=== PATIENT | female | born 1955 | race Caucasian/White ===

== ENCOUNTER 2018-06-23 13:08 | Emergency (ER) | payer MEDICAID, SELFPAY ==
[2018-06-23 13:11] VITALS: BP 119/54; PULSE 78; RESP 16; TEMP 36.7; O2SAT 96
--- NOTE | 2018-06-23 13:26 | W.ED.GENAD ---
Discharge Plan Disposition Patient Disposition: HOME Condition: Stable Discharge Details Chief Complaint: Nk/Back Pain Clinical Impression: Lumbar strain Primary Care Provider: Genaro Bonilla ED Provider: Marshall Jim Home Meds and New Rx's Prescriptions: New cyclobenzaprine 10 mg tablet 10 mg PO TID Qty: 20 RF: 0 No Action clonidine HCl 0.2 mg Tablet 0.2 mg PO BID RF: 0 escitalopram oxalate [Lexapro] 20 mg Tablet 20 mg PO DAILY RF: 0 aripiprazole [Abilify] 5 mg Tablet 5 mg PO DAILY RF: 0 Discharge Instructions Instructions: Low Back Strain (ED), Lower Back Exercises (ED) Additional Instructions: call physical therapy for an appointment take 800mg ibuprofen every 8 hours and 1000mg tylenol every 6 hours. If you take a flexeril (cyclobenzaprine) do not drink alcohol or drive as it can make you sleepy follow up with your primary care provider in 1-2 weeks especially if pain continues return to the emergency department for new symptoms such as high fevers, severe abdominal pain or if you feel significantly worse Stand Alone Forms: Physical Therapy Referral, Work Release Medical Decision Making 63 yo female comes in with low back pain. She states it started while she was at work lifting heavy pallets of soda and twisted her lower back. Denies falls or other trauma. She has had low back pain since so came here. Denies weakness, numbness and difficulty urinating. She localizes the pain to the lumbar back and has pain throughout on exam without erythema, warmth and no midline stepoffs. no saddle anesthesia, inact distal sensation and pulses and full rom of the lower extremities with 5/5 strength. Denies ivdu or fevers. I suspect lumbar strain and will start on muscle relaxers and refer to PT. Could also be disc herniation, advised f/u wtih pcp if pain continues in 1-2 weeks, no findings to suggest cauda equina, sea or other findings so do not feel emergent mri indicated. No abdominal pain ,normal vascular exam and pain is reproducible to the lower back and pain is positional so doubt aaa or dissection at this time Differential Diagnosis strain, disc herniation HPI General Mode of arrival: ambulatory. Date/Time Provider Initiated Documentation: 06/23/18 13:09. Limitations to Documentation: no limitations. Information obtained by: patient. History of Present Illness 63 year old F presents to the emergency department with the chief complaint of low back pain, described as moderate, Quality is described as aching, and is localized to the back. Patient started experiencing this day(s) (3) and it has been constant. Rest improves symptom(s), Movement worsens symptoms . Patient notes no other symptoms.. Patient did receive the following treatments prior to arrival, NSAID Related Data Home Medications Medication Instructions Recorded Confirmed aripiprazole [Abilify] 5 mg PO DAILY 06/23/18 06/23/18 clonidine HCl 0.2 mg PO BID 06/23/18 06/23/18 cyclobenzaprine 10 mg PO TID #20 tab 06/23/18 escitalopram oxalate [Lexapro] 20 mg PO DAILY 06/23/18 06/23/18 Previous Rx's Medication Instructions Recorded cyclobenzaprine 10 mg PO TID #20 tab 06/23/18 Allergies Allergy/AdvReac Type Severity Reaction Status Date / Time Sulfa (Sulfonamide Allergy Intermediate headache/ Unverified 06/23/18 13:14 Antibiotics) itiching General Stated Complaint: Nk/Back Pain ABIODUN: 4 Review of Systems Review of Systems All systems reviewed & are unremarkable except as noted in HPI and below Constitutional Denies chills, Denies fever(s) and Denies weakness Cardiovascular Denies chest pain and Denies dyspnea Respiratory Denies cough and Denies dyspnea Gastrointestinal Denies abdominal pain, Denies nausea and Denies vomiting Genitourinary Denies dysuria Neurologic Denies weakness [facility] Social History Smoking/Tobacco Use Status: Current every day Drug use: Never Do you feel safe at home: Yes Do you feel safe in your relationship?: Yes Exam Const General: no acute distress Orientation: alert [facility] Head: normal to inspection Ears: external ears normal General nose exam: external nose normal Mouth: moist mucous membranes Eyes General: appearance normal, both eyes and all related structures Neck Neck: normal visual inspection Resp Effort & Inspection: normal respiratory effort and able to speak in complete sentences Cardio Rate: regular rate Back/Spine/Pelvis Back: no CVA tenderness Skin General skin exam: no rashes or lesions noted Neuro General: alert and oriented x3 Extrem General: normal to inspection Psych Mental Status: mental status grossly normal Course Vital Signs Temperature 36.7 C 06/23/18 13:11 Pulse 78 05/01/19 13:11 Respiratory Rate 16 06/23/18 13:11 Blood Pressure 119/54 L 06/23/18 13:11 Pulse Oximetry 96 06/23/18 13:11 Temperature 36.7 C 06/23/18 13:11 Pulse 78 06/23/18 13:11 Respiratory Rate 16 06/23/18 13:11 Respiratory Effort Non-Labored 06/23/18 13:13 Blood Pressure 119/54 L 06/23/18 13:11 Blood Pressure Position Sitting 06/23/18 13:11 Pulse Oximetry 96 06/23/18 13:11 Oxygen Delivery Method Room Air 06/23/18 13:11 Oxygen Flow Rate 0 06/23/18 13:11 Pain Level 10 06/23/18 13:16
--- NOTE | 2018-06-23 13:29 | ED.GENADUL_ITS ---
Discharge Plan Disposition Patient Disposition: HOME Condition: Stable Discharge Details Chief Complaint: Nk/Back Pain Clinical Impression: Lumbar strain Primary Care Provider: Genaro Bonilla ED Provider: Marshall Jim Home Meds and New Rx's Prescriptions: New cyclobenzaprine 10 mg tablet 10 mg PO TID Qty: 20 RF: 0 No Action clonidine HCl 0.2 mg Tablet 0.2 mg PO BID RF: 0 escitalopram oxalate [Lexapro] 20 mg Tablet 20 mg PO DAILY RF: 0 aripiprazole [Abilify] 5 mg Tablet 5 mg PO DAILY RF: 0 Discharge Instructions Instructions: Low Back Strain (ED), Lower Back Exercises (ED) Additional Instructions: call physical therapy for an appointment take 800mg ibuprofen every 8 hours and 1000mg tylenol every 6 hours. If you take a flexeril (cyclobenzaprine) do not drink alcohol or drive as it can make you sleepy follow up with your primary care provider in 1-2 weeks especially if pain continues return to the emergency department for new symptoms such as high fevers, severe abdominal pain or if you feel significantly worse Stand Alone Forms: Physical Therapy Referral, Work Release Medical Decision Making 63 yo female comes in with low back pain. She states it started while she was at work lifting heavy pallets of soda and twisted her lower back. Denies falls or other trauma. She has had low back pain since so came here. Denies weakness, numbness and difficulty urinating. She localizes the pain to the lumbar back and has pain throughout on exam without erythema, warmth and no midline stepoffs. no saddle anesthesia, inact distal sensation and pulses and full rom of the lower extremities with 5/5 strength. Denies ivdu or fevers. I suspect lumbar strain and will start on muscle relaxers and refer to PT. Could also be disc herniation, advised f/u wtih pcp if pain continues in 1-2 weeks, no findings to suggest cauda equina, sea or other findings so do not feel emergent mri indicated. No abdominal pain ,normal vascular exam and pain is reproducible to the lower back and pain is positional so doubt aaa or dissection at this time Differential Diagnosis strain, disc herniation HPI General Mode of arrival: ambulatory . Date/Time Provider Initiated Documentation: 06/23/18 13:09 . Limitations to Documentation: no limitations . Information obtained by: patient . History of Present Illness 63 year old F presents to the emergency department with the chief complaint of low back pain, described as moderate, Quality is described as aching, and is localized to the back. Patient started experiencing this day(s) (3) and it has been c onstant. Rest improves symptom(s), Movement worsens symptoms . Patient notes no other symptoms.. Patient did receive the following treatments prior to arrival, NSAID Related Data Home Medications Medication Instructions Recorded Confirmed aripiprazole [Abilify] 5 mg PO DAILY 06/23/18 06/23/18 clonidine HCl 0.2 mg PO BID 06/23/18 06/23/18 cyclobenzaprine 10 mg PO TID #20 tab 06/23/18 escitalopram oxalate [Lexapro] 20 mg PO DAILY 06/23/18 06/23/18 Previous Rx's Medication Instructions Recorded cyclobenzaprine 10 mg PO TID #20 tab 06/23/18 Allergies Allergy/AdvReac Type Severity Reaction Status Date / Time Sulfa (Sulfonamide Allergy Intermediate headache/ Unverified 06/23/18 13:14 Antibiotics) itiching General Stated Complaint: Nk/Back Pain ABIODUN: 4 Review of Systems Review of Systems All systems reviewed & are unremarkable except as noted in HPI and below Constitutional Denies chills, Denies fever(s) and Denies weakness Cardiovascular Denies chest pain and Denies dyspnea Respiratory Denies cough and Denies dyspnea Gastrointestinal Denies abdominal pain, Denies nausea and Denies vomiting Genitourinary Denies dysuria Neurologic Denies weakness PFSH Social History Smoking/Tobacco Use Status: Current every day Drug use: Never Do you feel safe at home: Yes Do you feel safe in your relationship?: Yes Exam Const General: no acute distress Orientation: alert HENMT Head: normal to inspection Ears: external ears normal General nose exam: external nose normal Mouth: moist mucous membranes Eyes General: appearance normal, both eyes and all related structures Neck Neck: normal visual inspection Resp Effort & Inspection: normal respiratory effort and able to speak in complete sentences Cardio Rate: regular rate Back/Spine/Pelvis Back: no CVA tenderness Skin General skin exam: no rashes or lesions noted Neuro General: alert and oriented x3 Extrem General: normal to inspection Psych Mental Status: mental status grossly normal Course Vital Signs Temperature 36.7 C 06/23/18 13:11 Pulse 78 06/23/18 13:11 Respiratory Rate 16 06/23/18 13:11 Blood Pressure 119/54 L 06/23/18 13:11 Pulse Oximetry 96 06/23/18 13:11 Temperature 36.7 C 06/23/18 13:11 Pulse 78 06/23/18 13:11 Respiratory Rate 16 06/23/18 13:11 Respiratory Effort Non-Labored 06/23/18 13:13 Blood Pressure 119/54 L 06/23/18 13:11 Blood Pressure Position Sitting 06/23/18 13:11 Pulse Oximetry 96 06/23/18 13:11 Oxygen Delivery Method Room Air 06/23/18 13:11 Oxygen Flow Rate 0 06/23/18 13:11 Pain Level 10 06/23/18 13:16
[2018-06-23] MEDS: Cyclobenzaprine 10 MG TAB PO (13:31)
== END 2018-06-23 13:34 | disposition home or self-care (01) ==
LOC: ER 13:43
PROVIDERS: Emergency Provider Emergency Medicine; PCP Nurse Practitioner Family
DX: S39.012A Strain of muscle, fascia and tendon of lower back, initial encounter (principal); X50.0XXA Overexertion from strenuous movement or load, initial encounter
CPT/HCPCS: 99283

== ENCOUNTER 2018-08-23 12:27 | Outpatient (REF) | payer MEDICAID, SELFPAY ==
[2018-08-23 18:26] LABS: HCT 43.6 % (36.0-46.0); HGB 15.6 g/dL (12.0-15.5); Mean Corp. HGB Concentration 35.8 g/dL (32.0-36.0); Mean Corpuscular Hemoglobin 36.6 pg (27.0-33.0); Mean Corpuscular Volume 102.3 fL (80-95); Mean Platelet Volume 9.7 fL (8.0-11.0); Platelet Count 249 x1000/uL (130-400); RBC 4.26 m/cumm (4.00-5.20); RBC Distribution Width 13.7 % (11.7-14.6); White Blood Cell Count 6.08 k/cumm (4.4-10.8)
[2018-08-23 18:45] LABS: ALT 44 U/L (12-78); AST 29 U/L (15-37); Albumin 3.5 g/dL (3.4-5.0); Alkaline Phosphatase 72 U/L (46-116); Anion Gap 12.5 mmol/L (3-11); BUN 13 mg/dL (7-18); Bilirubin, Total 0.5 mg/dL (0.2-1.0); CO2 26.5 mmol/L (21.0-32.0); CREATININE 0.93 mg/dL (0.55-1.02); Calcium 9.1 mg/dL (8.5-10.1); Calculated LDL 140 mg/dL; Chloride 105 mmol/L (98-107); Cholesterol 230 mg/dL (50-200); Glucose 91 mg/dL (70-100); HDL Cholesterol 79 mg/dL (40-60); Potassium 4.3 mmol/L (3.5-5.1); Sodium 144 mmol/L (136-145); TSH (W/Ref FT4) 5.05 uIU/mL (0.358-3.74); Total Protein 6.4 g/dL (6.4-8.2); Triglyceride 59 mg/dL (30-150)
[2018-08-23 19:18] LABS: FREE T4 0.67 ng/dL (0.76-1.46)
== END 2018-08-23 12:47 ==
LOC: NCHCN 12:27
PROVIDERS: PCP Nurse Practitioner Family; Visit Provider Nurse Practitioner Family
DX: Z13.29 Encounter for screening for other suspected endocrine disorder (principal); Z13.0 Encounter for screening for diseases of the blood and blood-forming organs and certain disorders involving the immune mechanism; Z13.228 Encounter for screening for other metabolic disorders; Z13.220 Encounter for screening for lipoid disorders; Z00.00 Encounter for general adult medical examination without abnormal findings
CPT/HCPCS: 80053; 80061; 83721; 85027; 84439; 84443

== ENCOUNTER 2018-09-04 10:11 | Inpatient (IN) | payer MEDICAID, SELFPAY ==
[2018-09-04] VITALS (72 sets, daily range): BP systolic 65–104; BP diastolic 32–66; PULSE 60–76; RESP 14–29; TEMP 35.9–36.8; O2SAT 89–98
[2018-09-04] MEDS: Normal Saline 1,000 ML 1000 ML IV ×2 (10:30→11:08)
--- NOTE | 2018-09-04 10:44 | DI.COMBO_ITS ---
SYMPTOM/DIAGNOSIS: SOB, NAUSEA, VOMITING,DIARRHEA CORRECTED REPORT PA AND LATERAL CHEST: Two views. Comparison is made with previous examination. Heart size and pulmonary vasculature are within normal limits. There is a large area of consolidation involving the right lower lobe suspicious for pneumonia. The lungs are otherwise clear. No gross effusions or pneumothoraces are identified. There is a compression deformity of the T 12 vertebral body. This occurred since the prior examination of 04/13/16. IMPRESSION: Right lower lobe consolidation suspicious for pneumonia. Follow up chest xrays are recommended to document complete resolution of the opacity and to exclude other etiologies including mass. ABDOMEN AND PELVIC CT: CT scan of the abdomen and pelvis was performed following the uneventful administration of intravenous contrast material. The liver is normal in size. No suspicious hepatic mass is seen. The portal, superior mesenteric and splenic veins are patent. The gallbladder is negative. There is no biliary ductal dilatation. The pancreas, spleen and adrenal glands are unremarkable as are the kidneys, ureters and bladder. Reproductive organs are unremarkable. The bowel is unremarkable. There is a normal appendix present. The abdominal aorta is of normal caliber. No significant abdominal or pelvic adenopathy, ascites or pneumoperitoneum is present. There is an area of consolidation in the right lower lobe suspicious for pneumonia. There is a compression deformity of the T 12 vertebral body with loss of approximately 50% o the height of the vertebral body. The finding appears chronic. No acute osseous abnormality is identified. IMPRESSION: Right lower lobe consolidation suspicious for pneumonia. Follow up is recommended to document complete resolution of this opacity and to exclude other etiologies. Follow up chest xrays may be obtained.
[2018-09-04 11:04] LABS: Abs Immature Grans 0.02 k/cumm (0.0-0.09); Absolute Basophil Count 0.05 k/cumm (0.0-0.2); Absolute Eosinophil Count 0.01 k/cumm (0.0-0.7); Absolute Lymphocyte Count 1.17 k/cumm (1.2-3.4); Absolute Monocyte Count 0.43 k/cumm (0.11-0.7); Absolute Neutrophil Count 4.37 k/cumm (1.2-6.7); Basophils % 0.8; Eosinophils % 0.2; HCT 45.1 % (36.0-46.0); HGB 16.2 g/dL (12.0-15.5); Immature Grans % 0.3; Lymphocytes % 19.3; Mean Corp. HGB Concentration 35.9 g/dL (32.0-36.0); Mean Corpuscular Hemoglobin 34.5 pg (27.0-33.0); Mean Platelet Volume 10.4 fL (8.0-11.0); Monocytes % 7.1; Neutrophils % 72.3; Platelet Count 159 x1000/uL (130-400); RBC Distribution Width 13.9 % (11.7-14.6); White Blood Cell Count 6.05 k/cumm (4.4-10.8)
[2018-09-04 11:10] LABS: ALT 43 U/L (12-78); AST 69 U/L (15-37); Albumin 2.5 g/dL (3.4-5.0); Alkaline Phosphatase 57 U/L (46-116); Anion Gap 13.7 mmol/L (3-11); BUN 20 mg/dL (7-18); Bilirubin, Total 0.5 mg/dL (0.2-1.0); CO2 25.3 mmol/L (21.0-32.0); CREATININE 1.08 mg/dL (0.55-1.02); Calcium 8.3 mg/dL (8.5-10.1); Chloride 93 mmol/L (98-107); Estimated GFR 51.58 (mL/min/1.73m2); Glucose 95 mg/dL (70-100); Sodium 132 mmol/L (136-145); Total Protein 6.6 g/dL (6.4-8.2)
[2018-09-04 11:14] LABS: Potassium 2.6 mmol/L (3.5-5.1)
--- NOTE | 2018-09-04 11:14 | W.ED.GENAD ---
Discharge Plan Disposition Patient Disposition: [facility] INPATIENT Condition: Fair Discharge Details Chief Complaint: GenMedical Clinical Impression: Pneumonia, Acute hypokalemia, Nausea vomiting and diarrhea Admit Date/Time: 09/04/18 13:56 Admit Provider: Carlyn Guerrero Attending Provider: Carlyn Guerrero Primary Care Provider: Genaro Bonilla ED Provider: Hermes Garza Discharge Data Discharge Date/Time-TO BE ENTERED AT DEPARTURE: 09/04/18 15:46 Medical Decision Making Patient presenting to the emergency department for chief complaint of nausea vomiting diarrhea. Patient states that this started 1 week ago after eating pizza. She does report that family members have also had similar symptoms. She did take Imodium yesterday and diarrhea has stopped and she is not having any productive vomit but continued to have episodes of retching. She does state also for the past month she has had a cough but patient denies fever chills, rash, or cold-like symptoms. Patient does state significant concern for dehydration due to feeling generalized malaise weakness, and some disorientation. Physical exam shows diminished lung sounds in the right lower lung field, no tachycardia and regular cardiac exam, patient has diffuse abdominal tenderness without any focal findings, no rigidity, hyperactive bowel sounds. Plan to check labs, CT imaging of the abdomen, and chest x-ray for diminished lung sounds and cough. Pending results patient given IV fluids for hypotension but patient is afebrile, not tachycardic, and not tachypneic. Review of labs show no leukocytosis, hypokalemia, decreased sodium increased anion gap and unremarkable UA. Review of radiological imaging of chest x-ray and CT scan of abdomen show right lower lobe pneumonia. Possible consideration of aspiration pneumonia, legionnaires, community-acquired. Patient given a total of 3 L of fluid due to hypotension but given the finding of pneumonia lactate was added and patient was admitted to hospitalist service after speaking with Dr. Guerrero. Levaquin was started in the emergency department. Patient continued to have blood pressures in the mid to low 90s systolic. Patient was in agreement with plan of care for admission. Prior to admission lactate was reviewed and is within normal limits. ECG Data Attestation: I personally reviewed and interpreted this ECG (s) as follows: Interpretation: EKG reviewed with attending physician Dr. Jim. Shows sinus rhythm, rate 71, no STEMI. Otherwise nondiagnostic HPI General Mode of arrival: ambulatory. Date/Time Provider Initiated Documentation: 09/04/18 10:12. Limitations to Documentation: no limitations. Information obtained by: patient. History of Present Illness 63 year old F presents to the emergency department with the chief complaint of vomiting/diarrhea, Quality is described as aching, and is localized to the abdomen. Patient reports no radiation. Patient started experiencing this week(s) (1) and it has been constant. Patient notes cough, fever/chills and headaches. Patient did receive the following treatments prior to arrival, other (immodium) Related Data Home Medications Medication Instructions Recorded Confirmed aripiprazole [Abilify] 5 mg PO DAILY 06/23/18 09/04/18 escitalopram oxalate [Lexapro] 20 mg PO DAILY 06/23/18 09/04/18 clonidine HCl 0.1 mg PO BID 09/04/18 09/04/18 ibuprofen 600 mg PO Q6H PRN PRN 09/04/18 09/04/18 Allergies Allergy/AdvReac Type Severity Reaction Status Date / Time Sulfa (Sulfonamide AdvReac Intermediate headache/ Unverified 09/04/18 10:48 Antibiotics) itiching General Stated Complaint: GenMedical ABIODUN: 3 Review of Systems Constitutional Reports system reviewed and no additional complaints, except as docu, Reports anorexia, Reports chills, Denies fever(s), Reports headache(s) (on-and-off), Reports malaise and Reports weakness ENT Reports dizziness and Reports headache(s) (on-and-off) Cardiovascular Denies chest pain and Denies palpitations Respiratory Reports change in phlegm color (color), Reports cough and Denies wheezing Gastrointestinal Reports abdominal pain, Denies hematochezia, Reports diarrhea (x5/day), Reports nausea, Reports vomiting (dry heaving) and Denies hematemesis Genitourinary Denies hematuria and Reports urinary incontinence (with strong ammonia odor to urine) Musculoskeletal Denies numbness Neurologic Denies abnormal speech, Reports dizziness, Reports headache(s) (on-and-off), Denies numbness, Denies tremor(s) and Reports weakness Endocrine Denies palpitations Allergic/Immunologic Denies wheezing [facility] Medical History (Updated 09/04/18 @ 17:59 by Carlyn Guerrero MD) Alcohol abuse (Chronic) Anxiety (Chronic) Depression (Chronic) Hypothyroidism (Chronic) Ulcerative colitis (Chronic) Surgical History (Updated 09/04/18 @ 17:44 by Carlyn Guerrero MD) Hx of section (Chronic) Hx of colonoscopy (Chronic) Family History (Updated 09/04/18 @ 17:45 by Carlyn Guerrero MD) Father Heart disease Paternal Grandmother Cancer Maternal Grandmother Cancer Social History (Updated 09/04/18 @ 17:45 by Carlyn Guerrero MD) Smoking/Tobacco Use Status: Current every day Alcohol Intake: current Alcohol Intake frequency: a few times a week Alcohol type: beer Drug use: Socially Substance use type: former substance user and marijuana Do you feel safe at home: Yes Do you feel safe in your relationship?: Yes Exam Const General: cooperative and well developed Nutritional Appearance: average body habitus HENNJ Head: normal to inspection, normocephalic and atraumatic Ears: hearing grossly normal bilaterally General nose exam: external nose normal Face and sinus: normal facial exam Neck Neck: normal visual inspection and no lymphadenopathy Resp Effort & Inspection: normal respiratory effort and able to speak in complete sentences Auscultation: no crackles, diminished lung sounds on the right in the lower lung tapia, no rales, no rhonchi and no wheezes Cardio Rate: regular rate Rhythm: regular rhythm Heart Sounds: S1 normal, S2 normal, no click, no gallops, no murmurs and no rubs GI Inspection: normal to inspection, no abdominal wall ecchymosis, non-distended, obesity, no visible herniation, no visible pulsation and No visible peristalsis Palpation: soft, hepatosplenomegaly present, no masses and tender (diffuse ) Auscultation: normal bowel sounds Skin General skin exam: no rashes or lesions noted Neuro General: moves all extremities Speech: speech normal Motor: muscle tone normal throughout Extrem General: no clubbing, cyanosis or edema and no pedal edema Course Vital Signs Temperature 36.8 C 09/04/18 10:19 Pulse 72 09/04/18 10:19 Respiratory Rate 20 09/04/18 10:19 Blood Pressure 95/59 L 09/04/18 10:19 Pulse Oximetry 90 L 09/04/18 10:19 Temperature 36.8 C 09/04/18 11:12 Temperature Source Oral 09/04/18 11:12 Pulse 60 09/04/18 11:02 Pulse 61 09/04/18 11:02 Respiratory Rate 27 H 09/04/18 11:02 Respiratory Effort Non-Labored 09/04/18 10:31 Respiratory Depth Normal 09/04/18 10:31 Respiratory Pattern Normal 09/04/18 10:31 Blood Pressure 83/43 L 09/04/18 11:02 Blood Pressure Mean 54 09/04/18 11:02 Blood Pressure Position Sitting 09/04/18 10:19 Pulse Oximetry 96 09/04/18 11:02 Oxygen Delivery Method Room Air 09/04/18 10:19 Oxygen Flow Rate 0 09/04/18 10:19 Pain Level 8 09/04/18 10:19 Lab/Test Results Lab/Test Results: Laboratory Tests Range/Units 09/04/18 10:30 Sodium (136-145) mmol/L 132 L Potassium (3.5-5.1) mmol/L 2.6 L* Chloride (98-107) mmol/L 93 L Carbon Dioxide (21.0-32.0) mmol/L 25.3 Anion Gap (3-11) mmol/L 13.7 H BUN (7-18) mg/dL 20 H Creatinine (0.55-1.02) mg/dL 1.08 H Estimated GFR/1.73 m2 (mL/min/1.73m2) 51.58 Glucose (70-100) mg/dL 95 Calcium (8.5-10.1) mg/dL 8.3 L Magnesium (1.8-2.4) mg/dL 2.0 Total Bilirubin (0.2-1.0) mg/dL 0.5 AST (15-37) U/L 69 H ALT (12-78) U/L 43 Alkaline Phosphatase (46-116) U/L 57 Total Protein (6.4-8.2) g/dL 6.6 Albumin (3.4-5.0) g/dL 2.5 L
[2018-09-04] MEDS: Ondansetron O.D.T. 4 MG TABEF PO (11:21)
[2018-09-04] MEDS: POTASSIUM CHLORIDE 10 MEQ/100 ML BAG 100 MEQ IVPB (11:26)
[2018-09-04 11:31] LABS: Diff Comment Diff Reviewed
[2018-09-04] MEDS: Lactated Ringers 1,000 ML 500 ML IV (11:36)
[2018-09-04] MEDS: Omnipaque 350 MG/ML 100 ML BTL IJ (12:02)
--- NOTE | 2018-09-04 12:17 | DI.VRAD_ITS ---
EXAM: CT Abdomen and Pelvis With Contrast EXAM DATE/TIME: 09/04/2018 11:32 AM CLINICAL HISTORY: 63 years old, female; Nausea and vomiting and other: Diarrhea TECHNIQUE: Imaging protocol: Axial computed tomography images of the abdomen and pelvis with intravenous contrast. Coronal and sagittal reformatted images were created and reviewed. Radiation optimization: All CT scans at this facility use at least one of these dose optimization techniques: automated exposure control; mA and/or kV adjustment per patient size (includes targeted exams where dose is matched to clinical indication); or iterative reconstruction. Contrast material: OMNIPAQUE 350; Contrast volume: 100 ml; Contrast route: IV; COMPARISON: CR LEFT HIP COMPLETE \T\ AP PELVIS 05/14/2013 2:07 PM FINDINGS: Right basilar lung consolidation suggesting pneumonia plus some degree of atelectasis. Appendix is normal. Normal appearing solid organs. No intestinal obstruction. No obstructive uropathy. No free fluid. No free air. No inflammatory changes. IMPRESSION: Marked right lower lobe consolidation suggesting pneumonia. Dictated and Authenticated by: Cassius Pagan MD. Ordering:THEO Mirza MD
--- NOTE | 2018-09-04 12:19 | DI.VRAD_ITS ---
EXAM: XR Chest, 2 Views EXAM DATE/TIME: 09/04/2018 10:47 AM CLINICAL HISTORY: 63 years old, female; Shortness of breath TECHNIQUE: Imaging protocol: XR of the chest, 2 views. COMPARISON: CR CHEST 2 VIEWS PA,LAT 04/13/2016 10:27 AM FINDINGS: Marked right lower lobe consolidation consistent with pneumonia. Lung tapia otherwise clear. Cardiac silhouette within normal limits for technique. No significant pleural effusion. Bony structures unremarkable age. IMPRESSION: Marked right lower lobe pneumonia. Dictated and Authenticated by: Cassius Pagan MD. Ordering:THEO Mirza MD
[2018-09-04 12:54] LABS: Lactate-non-spesis 1.3 mmol/l (0.6-1.4)
[2018-09-04] MEDS: Normal Saline 1,000 ML 125 ML IV (12:58)
[2018-09-04] MEDS: levoFLOXacin 750 MG/150 ML BAG 100 MG IVPB (13:02)
[2018-09-04 14:27] LABS: Bilirubin Negative (Negative); Blood Negative (Negative); Clarity Clear (Clear); Glucose Negative (Negative); Ketones Negative (Negative); Leukocyte Esterase Negative (Negative); Nitrite Negative (Negative); Specific Gravity <= 1.005 (1.005-1.025); Urobilinogen 0.2 EU/dL (Up TO 0.2)
[2018-09-04] MEDS: Lactated Ringers 1,000 ML 1000 ML IV (15:02)
[2018-09-04] MEDS: POTASSIUM CHLORIDE 20 MEQ/100 ML BAG 50 MEQ IVPB ×2 (15:03→17:15)
[2018-09-04 15:57] LABS: Lipase 386 U/L (73-393)
[2018-09-04] MEDS: Enoxaparin 40 MG/0.4 ML SYR SC (17:12)
[2018-09-04] MEDS: POTASSIUM CHLORIDE/0.9% NACL 1,000 ML 150 MEQ IV (17:28)
--- NOTE | 2018-09-04 17:29 | HPE_ITS ---
Date of service: 09/04/18 Time of Service: 17:30 Assessment and Plan (1) Right lower lobe pneumonia: Current visit: Yes Status: Acute Given the history of nausea/vomiting, aspiration pneumonia is the most lik ilan scenario. Obtain blood and sputum cultures. Continue aggressive IVF and levofloxacin, initiated in the ED. I feel that the pneumonia is likely due to the vomiting rather than being a part of the same syndrome (such as with legionella) - however, will check legionella urine Ag. (2) Hypotension: Current visit: Yes Status: Acute Likely due to dehydration. Continue aggressive IVF. Monitor BP's. (3) Alcohol abuse: Current visit: Yes Status: Chronic Monitor on CIWA with prn ativan. Provide vitamins. May have to switch to banana bag if cannot tolerate PO (4) Hypokalemia: Current visit: Yes Status: Acute Replete. Monitor on tele. (5) Hypothyroidism: Current visit: Yes Status: Chronic Presently subclinical. Follow up as outpatient (6) Depression: Current visit: Yes Status: Chronic Continue lexapro/abilify (7) Anxiety: Current visit: Yes Status: Chronic Hold clonidine while BP's are on the lower side (8) Nausea and vomiting: Current visit: Yes Status: Acute Resolved. Most likely due to viral vs bacterial gastroenteritis. Provide PPI, prn antiemetics if needed, but clinically this seems to have resolved. Continue IVF. Trial clear liquids. (9) DVT prophylaxis: Current visit: Yes Status: Acute lovenox (10) Discharge planning issues: Current visit: Yes Status: Acute Full code History of Present Illness Chief Complaint: I've been feeling sick for a week Narrative: Ms Kuhn is a 63 year old female with PMHx of depression, anxiety, hypothyroidism (off therapy), UC, who came to [facility] ED today with chief complaints of nausea/vomiting/dry heaving/watery diarrhea for a week. She states that this started after she ate pizza one week ago. While to the ER provider the patient stated that other family members also had the sx, she denied this to me. She does feel significantly better now. Last time she felt nauseated was this morning. She also reports subjective fevers, chills, and night sweats at home. She noticed some nonproductive cough, but she does not report that as her biggest concern. She also reports dyspnea on exertion, but it is not a new symptom for her. She is interested in trying eating tonight, which she states she hasn't done in 1 week. She stated she continued to drink, however. She drinks 2-3 times a week, 2-3 beers each time. The patient stated she that she has previously required inpatient rehab for alcoholism, but denies every having actual withdrawal symptoms or seizures. In the ED, she was found to be dehydrated, hypotensive with BP's in sometimes down to 70's (now up to 97/65), and her imaging revealed a RLL pneumonia. She was found to have hypokalemia with K of 2.6. The patient was initiated on aggressive IVF as well as IV levofloxacin. We were asked to admit the patient for further care. It also needs to be noted that the patient's neighbor, who was present with her at the time of triage in ED, remarked on her disorientation, but felt that this improved significantly during her ED course. Review of Systems Review of Systems 12 systems reviewed. Pertinent positives and negatives are as per HPI. Additionally, patient specifically denies ever having had seizures. She describes a generalized type of cramping in her abdomen, which has now resolved. Denies blood in stool and in her emetic contents. Denies urinary symptoms. Denies chest pain/dizziness. Endorses feeling unsteady on her feet. Thirsty. [facility] Medical History (Updated 09/04/18 @ 17:59 by Carlyn Guerrero MD) Alcohol abuse (Chronic) Anxiety (Chronic) Depression (Chronic) Hypothyroidism (Chronic) Ulcerative colitis (Chronic) Surgical History (Updated 09/04/18 @ 17:44 by Carlyn Guerrero MD) Hx of section (Chronic) Hx of colonoscopy (Chronic) Family History (Updated 09/04/18 @ 17:45 by Carlyn Guerrero MD) Father Heart disease Paternal Grandmother Cancer Maternal Grandmother Cancer Social History (Updated 09/04/18 @ 17:45 by Carlyn Guerrero MD) Smoking/Tobacco Use Status: Current every day Alcohol Intake: current Alcohol Intake frequency: a few times a week Alcohol type: beer Drug use: Socially Substance use type: former substance user and marijuana Do you feel safe at home: Yes Do you feel safe in your relationship?: Yes Meds Home Medications Medication Instructions Recorded Confirmed Type aripiprazole [Abilify] 5 mg PO DAILY 06/23/18 09/04/18 History escitalopram oxalate [Lexapro] 20 mg PO DAILY 06/23/18 09/04/18 History clonidine HCl 0.1 mg PO BID 09/04/18 09/04/18 History ibuprofen 600 mg PO Q6H PRN PRN 09/04/18 09/04/18 History Allergies Allergy/AdvReac Type Severity Reaction Status Date / Time Sulfa (Sulfonamide AdvReac Intermediate headache/ Unverified 09/04/18 10:48 Antibiotics) itiching Exam Narrative Exam Narrative: General: Obese female, A&Ox3, unsteady on her feet as she is walking to bed holding on to the IV pole; tremulous, appears somewhat slow to respond to some questions Neurological: A&Ox3, no obvious focal deficits, but some responses are delayed Psychiatric: appears anxious Skin: dry/intact, dehydrated HEENT: Atraumatic, normocephalic, EOMI, dry MM, + goiter, no submandibular or cervical lymphadenopathy, no JVD Cardiovascular: RRR, no m/r/g Lungs: Coarse breath sounds heard in B bases Gastrointestinal: abdomen is soft, + BS, mild diffuse tenderness Extremities: no e/c/c BLE's, 2+ pedal pulses B Results Imaging Additional studies: CT abdomen/pelvis with contrast: Marked right lower lobe consolidation suggesting pneumonia. CXR: Marked right lower lobe pneumonia. EKG: HR 71, NSR, no acute ischemia Labs : 09/04/18 10:30 09/04/18 10:30 Laboratory Results - last 24 hr 09/04/18 09/04/18 09/04/18 10:30 10:30 12:50 WBC 6.05 RBC 4.70 Hgb 16.2 H Hct 45.1 MCV 96.0 H MCH 34.5 H MCHC 35.9 RDW 13.9 Plt Count 159 MPV 10.4 Immature Gran % 0.3 Neutrophils % 72.3 Lymphocytes % 19.3 Monocytes % 7.1 Eosinophils % 0.2 Basophils % 0.8 Absolute Neutrophils 4.37 Absolute Lymphocytes 1.17 L Absolute Monocytes 0.43 Absolute Eosinophils 0.01 Absolute Basophils 0.05 Differential Comment Diff reviewed Sodium 132 L Potassium 2.6 L* Chloride 93 L Carbon Dioxide 25.3 Anion Gap 13.7 H BUN 20 H Creatinine 1.08 H Estimated GFR/1.73 m2 51.58 Glucose 95 Lactate 1.3 Calcium 8.3 L Magnesium 2.0 Total Bilirubin 0.5 AST 69 H ALT 43 Alkaline Phosphatase 57 Total Protein 6.6 Albumin 2.5 L Lipase Urine Color Urine Clarity Urine pH Ur Specific [place] Urine Protein Urine Ketones Urine Blood Urine Nitrite Urine Bilirubin Urine Urobilinogen Ur Leukocyte Esterase Urine Glucose 09/04/18 09/04/18 12:50 14:00 WBC RBC Hgb Hct MCV MCH MCHC RDW Plt Count MPV Immature Gran % Neutrophils % Lymphocytes % Monocytes % Eosinophils % Basophils % Absolute Neutrophils Absolute Lymphocytes Absolute Monocytes Absolute Eosinophils Absolute Basophils Differential Comment Sodium Potassium Chloride Carbon Dioxide Anion Gap BUN Creatinine Estimated GFR/1.73 m2 Glucose Lactate Calcium Magnesium Total Bilirubin AST ALT Alkaline Phosphatase Total Protein Albumin Lipase 386 Urine Color Yellow Urine Clarity Clear Urine pH 7.0 Ur Specific [place] <= 1.005 Urine Protein Negative Urine Ketones Negative Urine Blood Negative Urine Nitrite Negative Urine Bilirubin Negative Urine Urobilinogen 0.2 Ur Leukocyte Esterase Negative Urine Glucose Negative Last Vital Signs Temp 35.9 C L 09/04/18 16:11 Pulse 67 09/04/18 16:11 Resp 17 09/04/18 16:11 BP 97/65 L 09/04/18 16:11 Pulse Ox 94 L 09/04/18 16:11
[2018-09-04] MEDS: Normal Saline Flush 10 ML SYR IVP (18:25)
[2018-09-05] VITALS (12 sets, daily range): BP systolic 95–121; BP diastolic 60–81; PULSE 63–81; RESP 17–20; TEMP 36–36.9; O2SAT 94–98
[2018-09-05] MEDS: POTASSIUM CHLORIDE/0.9% NACL 1,000 ML 150 MEQ IV ×2 (01:27→07:14)
[2018-09-05 08:01] LABS: Abs Immature Grans 0.02 k/cumm (0.0-0.09); Absolute Basophil Count 0.04 k/cumm (0.0-0.2); Absolute Eosinophil Count 0.02 k/cumm (0.0-0.7); Absolute Monocyte Count 0.39 k/cumm (0.11-0.7); Absolute Neutrophil Count 3.11 k/cumm (1.2-6.7); Basophils % 0.8; Eosinophils % 0.4; HCT 42.3 % (36.0-46.0); HGB 14.6 g/dL (12.0-15.5); Immature Grans % 0.4; Lymphocytes % 26.6; Mean Corp. HGB Concentration 34.5 g/dL (32.0-36.0); Mean Corpuscular Hemoglobin 34.4 pg (27.0-33.0); Mean Corpuscular Volume 99.5 fL (80-95); Mean Platelet Volume 10.9 fL (8.0-11.0); Neutrophils % 63.8; Platelet Count 188 x1000/uL (130-400); RBC 4.25 m/cumm (4.00-5.20); RBC Distribution Width 14.4 % (11.7-14.6); White Blood Cell Count 4.88 k/cumm (4.4-10.8)
[2018-09-05] MEDS: Thiamine 100 MG TAB PO (08:06)
[2018-09-05] MEDS: ARIPiprazole 5 MG TAB PO (08:06)
[2018-09-05] MEDS: Folic Acid 1 MG TAB PO (08:06)
[2018-09-05] MEDS: Multivitamin TAB 1 TAB PO (08:06)
[2018-09-05] MEDS: Normal Saline Flush 10 ML SYR IVP (08:06)
[2018-09-05] MEDS: Escitalopram 20 MG TAB PO (08:06)
[2018-09-05 08:12] LABS: Anion Gap 12.6 mmol/L (3-11); BUN 10 mg/dL (7-18); CO2 19.4 mmol/L (21.0-32.0); CREATININE 0.76 mg/dL (0.55-1.02); Calcium 7.6 mg/dL (8.5-10.1); Chloride 109 mmol/L (98-107); Glucose 83 mg/dL (70-100); Magnesium 1.8 mg/dL (1.8-2.4); Potassium 4.1 mmol/L (3.5-5.1); Sodium 141 mmol/L (136-145)
[2018-09-05 08:39] LABS: Diff Comment Agrees w/ Instrument; RBC Morphology Normal
[2018-09-05] MEDS: Normal Saline 1,000 ML 150 ML IV (10:36)
[2018-09-05 10:45] LABS: Lactate-non-spesis 0.6 mmol/l (0.6-1.4)
[2018-09-05 12:23] LABS: Bilirubin Negative (Negative); Blood Negative (Negative); Clarity Clear (Clear); Glucose Negative (Negative); Ketones Trace mg/dL (Negative); Leukocyte Esterase Negative (Negative); Nitrite Negative (Negative); Specific Gravity 1.015 (1.005-1.025)
[2018-09-05 12:34] LABS: RBC Negative (0-2); WBC 0-2 HPF (0-5)
[2018-09-05 12:35] LABS: Bacteria Few HPF (Negative); C & S Indicated? No; Casts Negative LPF (Negative); Crystals Moderate Amorphous HPF (Negative); Epithelial Cells Moderate HPF (Negative); Mucus Trace (Negative)
[2018-09-05] MEDS: levoFLOXacin 750 MG/150 ML BAG 100 MG IVPB (13:00)
--- NOTE | 2018-09-05 14:22 | PGE_ITS ---
Date of Service Date of service: 09/05/18 Time of Service: 14:22 Assessment and Plan (1) Right lower lobe pneumonia: Current visit: Yes Status: Acute Repeating CXR to ensure the patient's PNA is not complicated by CHF as well. Continue current abx. Decrease IVF. (2) Hypotension: Current visit: Yes Status: Acute Improved. Decrease IVF. Continue to hold clonidine. (3) Alcohol abuse: Current visit: Yes Status: Chronic Monitor on CIWA with prn ativan. Supplement vitamins. (4) Hypokalemia: Current visit: Yes Status: Resolved was likely due to diarrhea. Resolved. Tele d/c'ed. Continue to monitor (5) Hypothyroidism: Current visit: Yes Status: Chronic Presently subclinical. Follow up as outpatient (6) Depression: Current visit: Yes Status: Chronic Continue lexapro/abilify (7) Anxiety: Current visit: Yes Status: Chronic Hold clonidine while BP's are on the lower side (8) Nausea and vomiting: Current visit: Yes Status: Resolved Resolved. Diarrhea today could be side effect of antibiotics - if recurs, should check stool studies, however. I recommended that the patient have BID yogurt. Advance diet to full liquids. (9) DVT prophylaxis: Current visit: Yes Status: Acute lovenox (10) Discharge planning issues: Current visit: Yes Status: Acute Full code Subjective Interval history since last seen: Ms Kuhn states she is feeling better. She is less dizzy and shaky. She continues to have a cough - it is productive of yellow sputum. Endorses shortness of breath on exertion. She reports R-sided rib pain from dry heaving. She hasn't had any dry heaving today and has been able to tolerate a clear liquid diet. She is interested in having it advanced. Denies abdominal pain. Did have an episode of yellowish - green watery diarrhea (nursing did not see it). Exam Narrative Exam Narrative: General: Obese female, A&Ox3, laying comfortably in bed, less pale than yesterday; mildly tremulous (less than yesterday), very SANDOVAL on minimal exertion (trying to turn in bed). HEENT: EOMI, MMM Cardiovascular: RRR, no m/r/g Lungs: R basilar crackles Gastrointestinal: abdomen is soft, initially tenderness in RUQ, then I could no longer illicit it - nontender, nondistended Extremities: no e/c/c BLE's, 2+ pedal pulses B Objective Objective Clinical Data: Abnormal lab results 09/05/18 09/05/18 09/05/18 Range/Units 06:35 06:35 12:10 MCV 99.5 H D (80-95) fL MCH 34.4 H (27.0-33.0) pg Chloride 109 H (98-107) mmol/L Carbon Dioxide 19.4 L (21.0-32.0) mmol/L Anion Gap 12.6 H (3-11) mmol/L Calcium 7.6 L (8.5-10.1) mg/dL Urine Protein Trace H (Negative) mg/dL Urine Ketones Trace H (Negative) mg/dL Urine Urobilinogen 1.0 H (Up TO 0.2) EU/dL Vital Signs Temperature 36.9 C 09/05/18 07:49 Temperature Source Tympanic 09/05/18 07:49 Pulse 63 09/05/18 10:45 Pulse Rhythm Regular 09/05/18 07:50 Pulse 69 09/04/18 15:21 Respiratory Rate 20 09/05/18 07:49 Respiratory Effort 09/05/18 07:50 Respiratory Depth Normal 09/05/18 07:50 Respiratory Pattern Irregular 09/05/18 07:50 Blood Pressure 96/63 L 09/05/18 07:49 Blood Pressure Mean 70 09/04/18 15:20 Blood Pressure Position Sitting 09/04/18 10:19 Pulse Oximetry 98 09/05/18 07:49 Oxygen Delivery Method Nasal Cannula 09/05/18 07:49 Oxygen Flow Rate 2 09/05/18 07:49 Pain Level 0 09/05/18 08:06 Comment 09/04/18 19:10 Intake & Output 09/04/18 09/05/18 09/05/18 23:59 11:59 23:59 Intake Total 3450.000 / 5450.000 2375.0 / 2825.0 450 / 2825.0 Output Total 1550 / 1550 1400 / 1400 Balance 1900.000 / 3900.000 975.0 / 1425.0 450 / 1425.0 Weight 81.647 kg 83.6 kg Intake: IV 3450.000 / 5450.000 2375.0 / 2375.0 Oral 450 / 450 Output: Urine 1550 / 1550 1400 / 1400 Other: Urine Color Yellow Yellow Urine Appearance Clear Clear Urine Odor Normal Normal Comment w tiny bit of stool UA Sent. 1230 Stool Size Small Stool Characteristics Soft Formed Brown Voiding Methods Toilet Toilet Toilet # Voids 1 Laboratory Results WBC 4.88 k/cumm (4.4-10.8) 09/05/18 06:35 RBC 4.25 m/cumm (4.00-5.20) 09/05/18 06:35 Hgb 14.6 g/dL (12.0-15.5) 09/05/18 06:35 Hct 42.3 % (36.0-46.0) 09/05/18 06:35 MCV 99.5 fL (80-95) H D 09/05/18 06:35 MCH 34.4 pg (27.0-33.0) H 09/05/18 06:35 MCHC 34.5 g/dL (32.0-36.0) 09/05/18 06:35 RDW 14.4 % (11.7-14.6) 09/05/18 06:35 Plt Count 188 x1000/uL (130-400) 09/05/18 06:35 MPV 10.9 fL (8.0-11.0) 09/05/18 06:35 Immature Gran % 0.4 09/05/18 06:35 63.8 09/05/18 06:35 26.6 09/05/18 06:35 8.0 09/05/18 06:35 0.4 09/05/18 06:35 0.8 09/05/18 06:35 Absolute Neutrophils 3.11 k/cumm (1.2-6.7) 09/05/18 06:35 Absolute Lymphocytes 1.30 k/cumm (1.2-3.4) 09/05/18 06:35 Absolute Monocytes 0.39 k/cumm (0.11-0.7) 09/05/18 06:35 Absolute Eosinophils 0.02 k/cumm (0.0-0.7) 09/05/18 06:35 Absolute Basophils 0.04 k/cumm (0.0-0.2) 09/05/18 06:35 Agrees w/ instrument 09/05/18 06:35 RBC Morphology Normal 09/05/18 06:35 Sodium 141 mmol/L (136-145) 09/05/18 06:35 Potassium 4.1 mmol/L (3.5-5.1) D 09/05/18 06:35 Chloride 109 mmol/L (98-107) H 09/05/18 06:35 Carbon Dioxide 19.4 mmol/L (21.0-32.0) L 09/05/18 06:35 12.6 mmol/L (3-11) H 09/05/18 06:35 BUN 10 mg/dL (7-18) D 09/05/18 06:35 0.76 mg/dL (0.55-1.02) 09/05/18 06:35 >= 60.00 (mL/min/1.73m2) 09/05/18 06:35 Glucose 83 mg/dL (70-100) 09/05/18 06:35 0.6 mmol/l (0.6-1.4) 09/05/18 10:40 Calcium 7.6 mg/dL (8.5-10.1) L 09/05/18 06:35 Magnesium 1.8 mg/dL (1.8-2.4) 09/05/18 06:35 0.5 mg/dL (0.2-1.0) 09/04/18 10:30 AST 69 U/L (15-37) H 09/04/18 10:30 ALT 43 U/L (12-78) 09/04/18 10:30 57 U/L (46-116) 09/04/18 10:30 6.6 g/dL (6.4-8.2) 09/04/18 10:30 2.5 g/dL (3.4-5.0) L 09/04/18 10:30 386 U/L (73-393) 09/04/18 12:50 Yellow (Yellow) 09/05/18 12:10 Clear (Clear) 09/05/18 12:10 6.0 (5-8) 09/05/18 12:10 Ur Specific [place] 1.015 (1.005-1.025) 09/05/18 12:10 Trace mg/dL (Negative) H 09/05/18 12:10 Trace mg/dL (Negative) H 09/05/18 12:10 Negative (Negative) 09/05/18 12:10 Negative (Negative) 09/05/18 12:10 Negative (Negative) 09/05/18 12:10 1.0 EU/dL (Up TO 0.2) H 09/05/18 12:10 Ur Leukocyte Esterase Negative (Negative) 09/05/18 12:10 Negative (0-2) 09/05/18 12:10 0-2 HPF (0-5) 09/05/18 12:10 Ur Epithelial Cells Moderate HPF (Negative) 09/05/18 12:10 Moderate amorphous HPF (Negative) 09/05/18 12:10 Few HPF (Negative) 09/05/18 12:10 Negative LPF (Negative) 09/05/18 12:10 Trace (Negative) 09/05/18 12:10 Ur Culture Indicated? No 09/05/18 12:10 Negative mg/dL (Negative) 09/05/18 12:10
--- NOTE | 2018-09-05 14:51 | DI.RAD_ITS ---
SYMPTOM/DIAGNOSIS: F/U PNEUMONIA, CRACKLES CORRECTED REPORT PA AND LATERAL CHEST: Two views. Comparison is made with 09/04/18. Since the prior examination, there has been interval progression of the right lower lobe consolidation. It is increased in size. This is most apparent on the lateral view. There has also developed small bilateral pleural effusions since the prior examination. Heart size and pulmonary vasculature are within normal limits. No pneumothorax is identified. IMPRESSION: Progression of the right lower lobe pneumonia with development of small bilateral pleural effusions.
[2018-09-05] MEDS: Normal Saline 1,000 ML 75 ML IV ×2 (15:26→23:11)
[2018-09-05] MEDS: Enoxaparin 40 MG/0.4 ML SYR SC (15:31)
--- NOTE | 2018-09-05 15:41 | DI.VRAD_ITS ---
EXAM: XR Chest, 2 Views EXAM DATE/TIME: 09/05/2018 2:48 PM CLINICAL HISTORY: 63 years old, female; Other: Follow up pneumonia; Crackles TECHNIQUE: Imaging protocol: XR of the chest, 2 views. COMPARISON: CR XR CHEST 2V PA LATERAL 09/04/2018 12:09 PM FINDINGS: Lungs: Persistent right lower lobe consolidation with new patchy infiltrate extending anteriorly and new opacification of the right costophrenic angle which may represent consolidation or fluid. Pleural space: Small amount of fluid now blunts the left costophrenic angle. No pneumothorax. Heart/Mediastinum: Unremarkable. No cardiomegaly. Bones/joints: Unremarkable. IMPRESSION: Worsened right lower lobe pneumonia. Dictated and Authenticated by: Maricruz Locke MD. Ordering:LISS Alcocer MD
--- NOTE | 2018-09-05 17:56 | INITIAL_ITS ---
Care Management Initial Assess REASON FOR HOSPITALIZATION:: Aspiration Pneumonia PAST MEDICAL HISTORY/PAST SURGICAL HISTORY:: Alcohol abuse, anxiety, depression, hypothyroidism, ulcerative colitis, section, colonoscopy PREVIOUS FUNCTIONAL STATUS/SOCIAL/FAMILY SUPPORTS:: Martina reports residing alone in [facility]. She works a few days a week at [employer] which is within walking distance of her home. She reports being independent with ADLs though she does not drive. She is rigid in posture and not forthcoming with information; further observation/assessment required for determination. CURRENT FUNCTIONAL STATUS:: Martina is lying in bed, eyes fixated on the television screen above her which is on a pharmacutical comercial when CM enters the room. Martina does not make eye contact but does provide few word answers when asked. Her arms are straight at her side and her movements are jerky. 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 She reports support friends and family when asked. She denies any support services including disability at this time. ADVANCE DIRECTIVES:: None on file Has patient been provided with information about the portal?: Yes Did the patient sign up for the portal?: Yes (Previously ) CODE STATUS:: Full Code INSURANCE COVERAGE / FINANCIAL ISSUES:: Medicaid CURRENT HOME/COMMUNITY SERVICES/EQUIPMENT:: Denies current services/equipment PRIMARY CARE PHYSICIAN:: Genaro Bonilla NP POTENTIAL DISCHARGE NEEDS:: Further evaluation for discharge planning considerations. Follow up appointments. PATIENT/FAMILY EDUCATION NEEDS:: Review of discharge instructions, discuss Ask Me Three. ANTICIPATED BARRIERS TO DISCHARGE:: None identified. TRANSPORTATION:: Via private vehicle with a [id number]. PLAN:: Martina will continue to be treated and closely monitored. CM will continue to follow and support discharge planning considerations.
[2018-09-06 04:05] VITALS: BP 149/83; PULSE 74; RESP 18; TEMP 37; O2SAT 94
[2018-09-06 07:13] LABS: Abs Immature Grans 0.03 k/cumm (0.0-0.09); HCT 40.2 % (36.0-46.0); HGB 13.9 g/dL (12.0-15.5); Mean Corp. HGB Concentration 34.6 g/dL (32.0-36.0); Mean Corpuscular Hemoglobin 34.2 pg (27.0-33.0); Mean Platelet Volume 10.6 fL (8.0-11.0); RBC 4.06 m/cumm (4.00-5.20); RBC Distribution Width 14.2 % (11.7-14.6); White Blood Cell Count 4.15 k/cumm (4.4-10.8)
[2018-09-06 08:01] LABS: Anion Gap 12.1 mmol/L (3-11); BUN 5 mg/dL (7-18); CO2 17.9 mmol/L (21.0-32.0); CREATININE 0.64 mg/dL (0.55-1.02); Calcium 7.6 mg/dL (8.5-10.1); Chloride 111 mmol/L (98-107); Glucose 93 mg/dL (70-100); Magnesium 1.5 mg/dL (1.8-2.4); Potassium 3.3 mmol/L (3.5-5.1); Sodium 141 mmol/L (136-145); Vitamin B12 813 pg/mL (193-986)
[2018-09-06] MEDS: Thiamine 100 MG TAB PO (08:09)
[2018-09-06] MEDS: Multivitamin TAB 1 TAB PO (08:09)
[2018-09-06] MEDS: Escitalopram 20 MG TAB PO (08:09)
[2018-09-06] MEDS: ARIPiprazole 5 MG TAB PO (08:09)
[2018-09-06] MEDS: Folic Acid 1 MG TAB PO (08:09)
[2018-09-06 08:10] VITALS: BP 128/83; PULSE 75; RESP 21; TEMP 36.5; O2SAT 96
[2018-09-06] MEDS: Normal Saline Flush 10 ML SYR IVP (08:10)
[2018-09-06 08:14] LABS: Absolute Neutrophil Count 2.57 k/cumm (1.2-6.7); Atypical Lymphocytes % 2
[2018-09-06 08:15] LABS: Absolute Basophil Count 0.04 k/cumm (0.0-0.2); Absolute Monocyte Count 0.54 k/cumm (0.11-0.7); Diff Comment Manual Differential
[2018-09-06 08:16] LABS: Platelet Count 226 x1000/uL (130-400); RBC Morphology Normal
[2018-09-06] MEDS: Potassium Chloride 20 MEQ TABCR 40 MEQ PO (10:42)
--- NOTE | 2018-09-06 10:45 | PDOC.CMDIS ---
LACE Index Scoring Tool - Questions: Length of Stay (in days): 2 Acuity (Admit via E.D.?): Yes E.D. Visits: 2 - Answers: Total Score: 7 Risk of Readmission: Low Risk Care Management Discharge Reason for Hospitalization: Aspiration Pneumonia Discharge Plan: Martina will return home when ready per MD. She will follow up with her PCP and plan of care as prescribed. CM will continue to follow and support discharge planning considerations. Patient/Family Education Needs: Review discharge instructions, discuss Ask Me Three.
[2018-09-06] MEDS: MAGNESIUM SULFATE 4 GM/100 ML BAG IVPB (10:51)
[2018-09-06 11:20] VITALS: BP 120/80; PULSE 74; RESP 22; TEMP 36.5; O2SAT 96
[2018-09-06] MEDS: Lactated Ringers 1,000 ML 75 ML IV (11:25)
--- NOTE | 2018-09-06 12:25 | W.PM.PROGNOT ---
Date of Service Date of service: 09/06/18 Time of Service: 12:25 Assessment and Plan (1) Right lower lobe pneumonia: Current visit: Yes Status: Acute Clinically this is better. Continue current abx and IVF. There is a possibility of discharge home tomorrow. Would like to repeat CXR tomorrow to demonstrate radiographic improvement - but this could also be done as outpatient. (2) Hypotension: Current visit: Yes Status: Resolved Resolved. IVF changed to LR due to physiologic acidosis of NS - but would finish the IVF tomorrow. Ok to resume clonidine. (3) Alcohol abuse: Current visit: Yes Status: Chronic Monitor on CIWA with prn ativan. Supplement vitamins. (4) Hypokalemia: Current visit: Yes Status: Acute Replete. Also, replete magnesium. (5) Hypothyroidism: Current visit: Yes Status: Chronic Presently subclinical. Follow up as outpatient (6) Depression: Current visit: Yes Status: Chronic Continue lexapro/abilify (7) Anxiety: Current visit: Yes Status: Chronic Resume clonidine. (8) Nausea and vomiting: Current visit: Yes Status: Resolved Resolved. Diarrhea also resolved. Advance diet to regular. Continue BID yogurt. (9) DVT prophylaxis: Current visit: Yes Status: Acute lovenox (10) Discharge planning issues: Current visit: Yes Status: Acute Full code PT eval prior to discharge as patient reports feeling unsteady on her feet. Subjective Interval history since last seen: States her breathing is a lot better than when she first came in, and that overall she feels a lot better, but still continues to have a productive cough with yellow sputum, feels lightheaded and unsteady on her feet. She does not feel ready to go home today, but thinks maybe tomorrow. Denies chest pain, nausea, abdominal pain. Diarrhea has resolved. She is interested in trying a regular consistency diet. Exam Narrative Exam Narrative: General: Obese female, A&Ox3, sitting up in a chair, looks visibly better, mildly tremulous. HEENT: EOMI, MMM Cardiovascular: RRR, no m/r/g Lungs: R basilar crackles, sounds about the same as yesterday Gastrointestinal: abdomen is soft, nontender, nondistended Extremities: no e/c/c BLE's, 2+ pedal pulses B Objective Objective Clinical Data: Abnormal lab results 09/05/18 09/06/18 09/06/18 Range/Units 12:10 06:50 06:50 WBC 4.15 L (4.4-10.8) k/cumm MCV 99.0 H (80-95) fL MCH 34.2 H (27.0-33.0) pg Absolute Lymphocytes 1.00 L (1.2-3.4) k/cumm Potassium 3.3 L (3.5-5.1) mmol/L Chloride 111 H (98-107) mmol/L Carbon Dioxide 17.9 L (21.0-32.0) mmol/L Anion Gap 12.1 H (3-11) mmol/L BUN 5 L (7-18) mg/dL Calcium 7.6 L (8.5-10.1) mg/dL Magnesium 1.5 L (1.8-2.4) mg/dL Urine Protein Trace H (Negative) mg/dL Urine Ketones Trace H (Negative) mg/dL Urine Urobilinogen 1.0 H (Up TO 0.2) EU/dL Vital Signs Temperature 36.5 C 09/06/18 08:10 Temperature Source Tympanic 09/06/18 08:10 Pulse 75 09/06/18 08:10 Pulse Rhythm Regular 09/06/18 07:50 Pulse 69 09/04/18 15:21 Respiratory Rate 21 09/06/18 08:10 Respiratory Effort Non-Labored 09/06/18 07:50 Respiratory Depth Normal 09/06/18 07:50 Respiratory Pattern Normal 09/06/18 07:50 Blood Pressure 128/83 09/06/18 08:10 Blood Pressure Mean 70 09/04/18 15:20 Blood Pressure Position Sitting 09/04/18 10:19 Pulse Oximetry 96 09/06/18 08:10 Oxygen Delivery Method Room Air 09/06/18 08:10 Oxygen Flow Rate 0 09/06/18 08:10 Pain Level 0 09/06/18 04:05 Comment 09/06/18 04:05 Intake & Output 09/05/18 09/06/18 09/06/18 23:59 11:59 23:59 Intake Total 2631.25 / 5006.25 1116.25 / 1116.25 Balance 2631.25 / 3606.25 1116.25 / 1116.25 Weight 83.5 kg Intake: IV 2181.25 / 4556.25 866.25 / 866.25 Oral 450 / 450 250 / 250 Other: Urine Appearance Clear Clear Comment UA Sent. 1230 not measured mixed w BM Stool Size Large Stool Characteristics Soft Formed Brown Voiding Methods Toilet Toilet Laboratory Results WBC 4.15 k/cumm (4.4-10.8) L 09/06/18 06:50 RBC 4.06 m/cumm (4.00-5.20) 09/06/18 06:50 Hgb 13.9 g/dL (12.0-15.5) 09/06/18 06:50 Hct 40.2 % (36.0-46.0) 09/06/18 06:50 MCV 99.0 fL (80-95) H 09/06/18 06:50 MCH 34.2 pg (27.0-33.0) H 09/06/18 06:50 MCHC 34.6 g/dL (32.0-36.0) 09/06/18 06:50 RDW 14.2 % (11.7-14.6) 09/06/18 06:50 Plt Count 226 x1000/uL (130-400) 09/06/18 06:50 MPV 10.6 fL (8.0-11.0) 09/06/18 06:50 Immature Gran % 0.0 09/06/18 06:50 61.0 09/06/18 06:50 1.0 % 09/06/18 06:50 22.0 09/06/18 06:50 Atypical Lymphs % 2 09/06/18 06:50 13.0 09/06/18 06:50 0.0 09/06/18 06:50 1.0 09/06/18 06:50 Absolute Neutrophils 2.57 k/cumm (1.2-6.7) 09/06/18 06:50 Absolute Lymphocytes 1.00 k/cumm (1.2-3.4) L 09/06/18 06:50 Absolute Monocytes 0.54 k/cumm (0.11-0.7) 09/06/18 06:50 Absolute Eosinophils 0.00 k/cumm (0.0-0.7) 09/06/18 06:50 Absolute Basophils 0.04 k/cumm (0.0-0.2) 09/06/18 06:50 Manual differential 09/06/18 06:50 RBC Morphology Normal 09/06/18 06:50 Sodium 141 mmol/L (136-145) 09/06/18 06:50 Potassium 3.3 mmol/L (3.5-5.1) L 09/06/18 06:50 Chloride 111 mmol/L (98-107) H 09/06/18 06:50 Carbon Dioxide 17.9 mmol/L (21.0-32.0) L 09/06/18 06:50 12.1 mmol/L (3-11) H 09/06/18 06:50 BUN 5 mg/dL (7-18) L 09/06/18 06:50 0.64 mg/dL (0.55-1.02) 09/06/18 06:50 >= 60.00 (mL/min/1.73m2) 09/06/18 06:50 Glucose 93 mg/dL (70-100) 09/06/18 06:50 0.6 mmol/l (0.6-1.4) 09/05/18 10:40 Calcium 7.6 mg/dL (8.5-10.1) L 09/06/18 06:50 Magnesium 1.5 mg/dL (1.8-2.4) L 09/06/18 06:50 0.5 mg/dL (0.2-1.0) 09/04/18 10:30 AST 69 U/L (15-37) H 09/04/18 10:30 ALT 43 U/L (12-78) 09/04/18 10:30 57 U/L (46-116) 09/04/18 10:30 6.6 g/dL (6.4-8.2) 09/04/18 10:30 2.5 g/dL (3.4-5.0) L 09/04/18 10:30 386 U/L (73-393) 09/04/18 12:50 Vitamin B12 813 pg/mL (193-986) 09/06/18 06:50 17.0 ng/mL (8.6-20.0) 09/06/18 06:50 Yellow (Yellow) 09/05/18 12:10 Clear (Clear) 09/05/18 12:10 6.0 (5-8) 09/05/18 12:10 Ur Specific [place] 1.015 (1.005-1.025) 09/05/18 12:10 Trace mg/dL (Negative) H 09/05/18 12:10 Trace mg/dL (Negative) H 09/05/18 12:10 Negative (Negative) 09/05/18 12:10 Negative (Negative) 09/05/18 12:10 Negative (Negative) 09/05/18 12:10 1.0 EU/dL (Up TO 0.2) H 09/05/18 12:10 Ur Leukocyte Esterase Negative (Negative) 09/05/18 12:10 Negative (0-2) 09/05/18 12:10 0-2 HPF (0-5) 09/05/18 12:10 Ur Epithelial Cells Moderate HPF (Negative) 09/05/18 12:10 Moderate amorphous HPF (Negative) 09/05/18 12:10 Few HPF (Negative) 09/05/18 12:10 Negative LPF (Negative) 09/05/18 12:10 Trace (Negative) 09/05/18 12:10 Ur Culture Indicated? No 09/05/18 12:10 Negative mg/dL (Negative) 09/05/18 12:10 CXR 09/05/18: Right lower lobe consolidation suspicious for pneumonia. Follow up chest xrays are recommended to document complete resolution of the opacity and to exclude other etiologies including mass.
--- NOTE | 2018-09-06 12:27 | PHARADMIT ---
Admission Pharmacy Clinical Review ASPIRATION PNEUMONIA Code Status Full Code Current Weight Wgt-83.5 kg Renally Cleared and Narrow Therapeutic Index Meds QTc- 441 NA QTc Value / Action Taken CrCl~ 6.45 mL/min Meds-OK BP Control, Fever BP- 128/83 Tmax- 36.5C Electrolytes reviewed Na- 141 K+3.3 Mag-1.5 DVT Prophylaxis Lovenox Opiate Usage / Scheduled Bowel Regimen Ordered No Yes Plt/SCr for Heparin / Enoxaparin Plts- 226 SCr- 0.64 INR for Warfarin NA H/H stable, WBC/Bands H&H- 13.9/40.2 WBC- 4.15 Antibiotic appropriateness Levaquin Cultures and Sensitivities Sputum (-), Blood-No Growth/24hr Surgical ABX d/c within 24 hr na DM control / Insulin Dosing BG- 93 Heart Failure (Check EF%) (MARY's, B-Block, Diuretics) none IV to PO Switch No Home Meds Reviewed Yes Home Meds Not Ordered Clonidine, Ibuprofen Comments On CIWA-Protocol
[2018-09-06] MEDS: levoFLOXacin 750 MG/150 ML BAG 100 MG IVPB (14:56)
[2018-09-06 15:40] VITALS: BP 114/79; PULSE 76; RESP 18; TEMP 36.6; O2SAT 99
[2018-09-06] MEDS: Enoxaparin 40 MG/0.4 ML SYR SC (15:45)
--- NOTE | 2018-09-06 16:11 | PDOC.CMPRO ---
Care Management Progress Note S/O: Appears clinically ready for discharge though per MD conversation, Martina does not yet feel ready and feels unsteady on her feet. Anticipate discharge home tomorrow. CM continues to follow. A: 63 year old female admitted to [facility] 09/04/18 for Aspiration Pneumonia P: Martina will continue to be treated and closely monitored. CM will continue to follow and support discharge planning considerations. Martina will discharge home with outpatient follow up plan including possible CXR and PCP appointment.
[2018-09-06 19:30] VITALS: O2SAT 95
[2018-09-06 19:47] VITALS: BP 131/84; PULSE 80; RESP 17; TEMP 36.8; O2SAT 95
[2018-09-06] MEDS: Magnesium Oxide 400 MG TAB PO (20:00)
[2018-09-06] MEDS: cloNIDine 0.1 MG TAB PO (20:00)
[2018-09-07] VITALS (8 sets, daily range): BP systolic 104–139; BP diastolic 67–82; PULSE 65–75; RESP 16–19; TEMP 36.3–37; O2SAT 93–97
[2018-09-07] MEDS: Lactated Ringers 1,000 ML 75 ML IV (05:26)
[2018-09-07 07:49] LABS: Abs Immature Grans 0.03 k/cumm (0.0-0.09); Mean Corpuscular Hemoglobin 34.3 pg (27.0-33.0); Mean Platelet Volume 10.2 fL (8.0-11.0); Platelet Count 280 x1000/uL (130-400); RBC 4.08 m/cumm (4.00-5.20); White Blood Cell Count 3.91 k/cumm (4.4-10.8)
[2018-09-07 08:01] LABS: Anion Gap 10.2 mmol/L (3-11); BUN 4 mg/dL (7-18); CO2 23.8 mmol/L (21.0-32.0); CREATININE 0.67 mg/dL (0.55-1.02); Calcium 8.3 mg/dL (8.5-10.1); Chloride 108 mmol/L (98-107); Glucose 101 mg/dL (70-100); Potassium 3.6 mmol/L (3.5-5.1); Sodium 142 mmol/L (136-145)
[2018-09-07] MEDS: Folic Acid 1 MG TAB PO (08:46)
[2018-09-07] MEDS: Magnesium Oxide 400 MG TAB PO ×2 (08:46→20:50)
[2018-09-07] MEDS: Thiamine 100 MG TAB PO (08:46)
[2018-09-07] MEDS: ARIPiprazole 5 MG TAB PO (08:46)
[2018-09-07] MEDS: Escitalopram 20 MG TAB PO (08:46)
[2018-09-07] MEDS: Multivitamin TAB 1 TAB PO (08:46)
[2018-09-07] MEDS: Normal Saline Flush 10 ML SYR IVP ×3 (08:47→17:26)
[2018-09-07 08:54] LABS: Absolute Lymphocyte Count 0.86 k/cumm (1.2-3.4); Absolute Monocyte Count 0.27 k/cumm (0.11-0.7); Absolute Neutrophil Count 2.78 k/cumm (1.2-6.7); Atypical Lymphocytes % 5; Diff Comment Manual Differential; RBC Morphology Normal
--- NOTE | 2018-09-07 09:32 | PDOC.CMDIS ---
Care Management Discharge Reason for Hospitalization: Aspiration Pneumonia
--- NOTE | 2018-09-07 12:51 | IN_ITS ---
Date of service: 09/07/18 Time of Service: 09:53 PT Notes Inpatient Physical Therapy Evaluation Date: 09/07/2018 Referring Doctor: Carlyn Guerrero MD PT Orders: PT CONSULT: Eval/treat Precautions: Fall. Standard. Activity as tolerated. Patient Profile/Admitting Diagnosis: Patient is a 63-year-old female with past medical history significant for depression, anxiety, and hypothyroidism who presented to the ED on 09/04/2018 with chief complaints of nausea, vomiting, and diarrhea that started 1 month ago. Patient was diagnosed with R LL Pneumonia, Hypotension, Alcohol abuse, hypokalemia, hypothyroidism, depression, and nausea/vomiting. referral for physical therapy was sent in order to address impairments in strength, balance, and mobility level. PMHX: Medical History (Updated 09/04/18 @ 17:59 by Carlyn Guerrero MD) Alcohol abuse (Chronic) Anxiety (Chronic) Depression (Chronic) Hypothyroidism (Chronic) Ulcerative colitis (Chronic) Surgical History (Updated 09/04/18 @ 17:44 by Carlyn Guerrero MD) Hx of section (Chronic) Hx of colonoscopy (Chronic) Social History/Home Situation: Patient lives alone on the thrid floor of an apartment Current Functional Limitations: Needs assistance with all transfers and ambul ation with an assistive device Equipment Owned/DME: None Subjective: Patient is agreable to a PT consult. She denies any episode of nausea, vomiting, and diarrhea this morning. She does concede to continuing to being weak, a little shaky, and unsteady in standing. She denies headache, dizziness, nor chest pain throuough session. Objective: General Observation: Patient seen resting in bed. IV in R UE. Mental Status: Alert and oriented x 4 Pain: 0/10 ROM: Right Upper Extremity: Shoulder Flexion WFL. Shoulder abduction WFL. Elbow flexion WFL. Wrist flexion WFL. Functional opening and closing of hand WFL. Left Upper Extremity: Shoulder Flexion WFL. Shoulder abduction WFL. Elbow flexion WFL. Wrist flexion WFL. Functional opening and closing of hand WFL. Right Lower Extremity: Hip flexion WFL. Hip abduction WFL. Knee flexion WFL. Ankle dorsiflexion WFL. Ankle plantarflexion WFL. Left Lower Extremity: Hip flexion WFL. Hip abduction WFL. Knee flexion WFL. Ankle dorsiflexion WFL. Ankle plantarflexion WFL. Strength: Right Upper Extremity: Shoulder flexors 4/5. Shoulder abductors 4/5. Elbow flexors 4/5. Elbow extensors 4/5. Ship Pilot strong. Left Upper Extremity: Shoulder flexors 4/5. Shoulder abductors 4/5. Elbow flexors 4/5. Elbow extensors 4/5. [place] strong. Right Lower Extremity: Hip flexors 4-/5. Hip abductors 4-/5. Knee flexors 4/5. Knee extensors 4-/5. Ankle dorsiflexors 4-/5. Ankle plantarflexors 4-/5. Left Lower Extremity:Hip flexors 4-/5. Hip abductors 4-/5. Knee flexors 4/5. Knee extensors 4-/5. Ankle dorsiflexors 4-/5. Ankle plantarflexors 4-/5. Sensation: Intact as to pain and pressure on bilateral lower extremities. Bed Mobility/Transfers: Rolling SBA Supine to sit SBA Sit to supine SBA Sit to stand SBA Stand to sit SBA Bed to chair SBA Chair to bed SBA Gait: Patient was able to tolerate up to 100 feet of level surface ambulation using the front-wheeled walker using SBA and minimal verbal cueing for walker management and directions. No remarkable gait deviations except for decreased gait velocity due to unsteadiness. Balance: Static Sitting: Good Dynamic Sitting: Good Static Standing: Fair Dynamic Standing: Fair Special Tests: Mobility Limitations Standardized Measure [facility] AM-PAC 6 clicks Basic Mobility Inpatient Short Form: Raw Score: 18 CMS Score: 47% deficit 4-stage balance Test: Patient was able to assume Position 1 but was unable to sustain semi tandem, tandem, and one-legged standing safely. Informed Consent/Education: Patient instructed in purpose of PT consult and plan of care. Assessment: Patient was diagnosed with R LL Pneumonia, Hypotension, Alcohol abuse, hypokalemia, hypothyroidism, depression, and nausea/vomiting. Patient presents with clinical signs and symptoms consistent with current/admitting diagnoses that have resulted to mobility limitations, gait instability, generalized weakness, and impairment of motor control as demonstrated by the following impairment level findings: 1. Decreased strength to B LE major muscle groups 2. Impaired sitting/standing balance 3. Impaired activity tolerance Impairments are contributing to the following functional limitations: 1. Dependent bed mobility skills 2. Increased dependence with transfers 3. Inability to safely ambulate without assistive device and physical assistance 4. Increase completion time for mobility ADL performance 5. Increased fall risk 6. Inability to negotiate steps alone safely Patient is assessed as a 58712 moderate complexity based on the following: History: Patient was diagnosed with R LL Pneumonia, Hypotension, Alcohol abuse, hypokalemia, hypothyroidism, depression, and nausea/vomiting. Examination: Demonstrable impairment in strength, balance, and range of motion with underlying impairments and functional limitations as documented above Presentation:Evolving Decision Makin moderate complexity DISCHARGE RECOMMENDATIONS: Patient goes home today with FWW. Patient will benefit from home health PT services in order to progress mobility level using least restrictive assistive ambulatory device/using no device, assess home safety, identify additional equipment needs, and establish a functional maintenance program that will increase ability of patient to remain at home. TREATMENT CODE/TIME: 93955 x 29 minutes beginning at 9:53 AM. Thank you very much for this referral. Toshia Buckley PT, DPT, CLT [facility]
[2018-09-07] MEDS: Albuterol 2.5 MG/3 ML INH SOLN VIAL UPD (13:29)
--- NOTE | 2018-09-07 13:38 | PGE_ITS ---
Date of Service Date of service: 09/07/18 Time of Service: 13:38 Assessment and Plan (1) Right lower lobe pneumonia: Current visit: Yes Status: Acute wheezing is new - I wonder if there is a component of fluid overload. D/c IVF. For repeat CXR. Has prn nebs. Not ready for d/c today. (2) Hypotension: Current visit: Yes Status: Resolved Resolved. IVF d/c'ed. Tolerating clonidine. (3) Alcohol abuse: Current visit: Yes Status: Chronic No evidence of active withdrawal. Continue to monitor CIWA while in the hospital. Supplement vitamins. (4) Hypokalemia: Current visit: Yes Status: Resolved Monitor (5) Hypothyroidism: Current visit: Yes Status: Chronic Presently subclinical. Follow up as outpatient (6) Depression: Current visit: Yes Status: Chronic Continue lexapro/abilify (7) Anxiety: Current visit: Yes Status: Chronic clonidine resumed - follow up as outpatient. (8) Nausea and vomiting: Current visit: Yes Status: Resolved Resolved. Diarrhea also resolved. Tolerating regular diet. (9) DVT prophylaxis: Current visit: Yes Status: Acute lovenox (10) Discharge planning issues: Current visit: Yes Status: Acute Full code Not ready for d/c today. Will need a walker and home health PT on discharge. Subjective Interval history since last seen: Ms Kuhn states that she feels better. She is still a little dizzy when she first gets up and is shaky on her feet, per PT, requiring a walker to ambulate. She denies chest pain, shortness of breath, nausea, vomiting, diarrhea. She continues to have a cough. She states she has been going to the bathroom to urinate a lot today, but denies dysuria. Exam Narrative Exam Narrative: General: Obese female, A&Ox3, laying comfortably in bed on her side, mildly tremulous. HEENT: EOMI, MMM Cardiovascular: RRR, no m/r/g Lungs: wheezing on expiration today - new Gastrointestinal: abdomen is soft, nontender, nondistended Extremities: no e/c/c BLE's, 2+ pedal pulses B Objective Objective Clinical Data: Abnormal lab results 09/07/18 09/07/18 Range/Units 07:27 07:27 WBC 3.91 L (4.4-10.8) k/cumm MCV 98.0 H (80-95) fL MCH 34.3 H (27.0-33.0) pg Absolute Lymphocytes 0.86 L (1.2-3.4) k/cumm Chloride 108 H (98-107) mmol/L BUN 4 L (7-18) mg/dL Glucose 101 H (70-100) mg/dL Calcium 8.3 L (8.5-10.1) mg/dL Vital Signs Temperature 36.4 C L 09/07/18 11:42 Temperature Source Tympanic 09/07/18 11:42 Pulse 73 09/07/18 11:42 Pulse Rhythm Regular 09/07/18 08:40 Pulse 69 09/04/18 15:21 Respiratory Rate 18 09/07/18 13:32 Respiratory Effort 09/07/18 13:32 Respiratory Depth Normal 09/07/18 13:32 Respiratory Pattern Normal 09/07/18 13:32 Blood Pressure 112/76 09/07/18 11:42 Blood Pressure Mean 70 09/04/18 15:20 Blood Pressure Position Sitting 09/04/18 10:19 Pulse Oximetry 93 L 09/07/18 11:42 Oxygen Delivery Method Room Air 09/07/18 11:42 Oxygen Flow Rate 0 09/07/18 11:42 Pain Level 0 09/07/18 07:58 Comment 09/06/18 04:05 Intake & Output 09/06/18 09/07/18 09/07/18 23:59 11:59 23:59 Intake Total 800 / 2586.25 1215 / 1455 240 / 1455 Output Total 400 / 400 Balance 400 / 2186.25 1215 / 1455 240 / 1455 Weight 83.9 kg Intake: IV 250 / 1116.25 975 / 975 Oral 550 / 1470 240 / 480 240 / 480 Output: Urine 400 / 400 Other: Urine Color Yellow Urine Appearance Clear Clear Voiding Methods Toilet Laboratory Results WBC 3.91 k/cumm (4.4-10.8) L 09/07/18 07:27 RBC 4.08 m/cumm (4.00-5.20) 09/07/18 07:27 Hgb 14.0 g/dL (12.0-15.5) 09/07/18 07:27 Hct 40.0 % (36.0-46.0) 09/07/18 07:27 MCV 98.0 fL (80-95) H 09/07/18 07:27 MCH 34.3 pg (27.0-33.0) H 09/07/18 07:27 MCHC 35.0 g/dL (32.0-36.0) 09/07/18 07:27 RDW 14.0 % (11.7-14.6) 09/07/18 07:27 Plt Count 280 x1000/uL (130-400) 09/07/18 07:27 MPV 10.2 fL (8.0-11.0) 09/07/18 07:27 Immature Gran % 0.0 09/07/18 07:27 71.0 09/07/18 07:27 1.0 % 09/06/18 06:50 17.0 09/07/18 07:27 Atypical Lymphs % 5 09/07/18 07:27 7.0 09/07/18 07:27 0.0 09/07/18 07:27 0.0 09/07/18 07:27 Absolute Neutrophils 2.78 k/cumm (1.2-6.7) 09/07/18 07:27 Absolute Lymphocytes 0.86 k/cumm (1.2-3.4) L 09/07/18 07:27 Absolute Monocytes 0.27 k/cumm (0.11-0.7) 09/07/18 07:27 Absolute Eosinophils 0.00 k/cumm (0.0-0.7) 09/07/18 07:27 Absolute Basophils 0.00 k/cumm (0.0-0.2) 09/07/18 07:27 Manual differential 09/07/18 07:27 RBC Morphology Normal 09/07/18 07:27 Sodium 142 mmol/L (136-145) 09/07/18 07:27 Potassium 3.6 mmol/L (3.5-5.1) 09/07/18 07:27 Chloride 108 mmol/L (98-107) H 09/07/18 07:27 Carbon Dioxide 23.8 mmol/L (21.0-32.0) 09/07/18 07:27 10.2 mmol/L (3-11) 09/07/18 07:27 BUN 4 mg/dL (7-18) L 09/07/18 07:27 0.67 mg/dL (0.55-1.02) 09/07/18 07:27 >= 60.00 (mL/min/1.73m2) 09/07/18 07:27 Glucose 101 mg/dL (70-100) H 09/07/18 07:27 0.6 mmol/l (0.6-1.4) 09/05/18 10:40 Calcium 8.3 mg/dL (8.5-10.1) L 09/07/18 07:27 Magnesium 2.0 mg/dL (1.8-2.4) 09/07/18 07:27 0.5 mg/dL (0.2-1.0) 09/04/18 10:30 AST 69 U/L (15-37) H 09/04/18 10:30 ALT 43 U/L (12-78) 09/04/18 10:30 57 U/L (46-116) 09/04/18 10:30 6.6 g/dL (6.4-8.2) 09/04/18 10:30 2.5 g/dL (3.4-5.0) L 09/04/18 10:30 386 U/L (73-393) 09/04/18 12:50 Vitamin B12 813 pg/mL (193-986) 09/06/18 06:50 17.0 ng/mL (8.6-20.0) 09/06/18 06:50 Yellow (Yellow) 09/05/18 12:10 Clear (Clear) 09/05/18 12:10 6.0 (5-8) 09/05/18 12:10 Ur Specific [place] 1.015 (1.005-1.025) 09/05/18 12:10 Trace mg/dL (Negative) H 09/05/18 12:10 Trace mg/dL (Negative) H 09/05/18 12:10 Negative (Negative) 09/05/18 12:10 Negative (Negative) 09/05/18 12:10 Negative (Negative) 09/05/18 12:10 1.0 EU/dL (Up TO 0.2) H 09/05/18 12:10 Ur Leukocyte Esterase Negative (Negative) 09/05/18 12:10 Negative (0-2) 09/05/18 12:10 0-2 HPF (0-5) 09/05/18 12:10 Ur Epithelial Cells Moderate HPF (Negative) 09/05/18 12:10 Moderate amorphous HPF (Negative) 09/05/18 12:10 Few HPF (Negative) 09/05/18 12:10 Negative LPF (Negative) 09/05/18 12:10 Trace (Negative) 09/05/18 12:10 Ur Culture Indicated? No 09/05/18 12:10 Negative mg/dL (Negative) 09/05/18 12:10 Legionella Source (see note) 09/05/18 12:10 Legionella Reprt Status (see note) 09/05/18 12:10 Legionella Final Result (see note) 09/05/18 12:10
--- NOTE | 2018-09-07 13:58 | PDOC.CMPRO ---
Care Management Progress Note S/O-Met with Martina today. She was supposed to be discharged but MD felt she was not yet ready. No change to overall plan. A-63 yo woman admitted with aspiration pneumonia. P-Continue in acute care as per MD. D/C home as per MD when medically cleared. RCT to transport.
--- NOTE | 2018-09-07 13:59 | DI.RAD_ITS ---
SYMPTOMS/DIAGNOSIS: NEW ONSET WHEEZING PA AND LATERAL CHEST: Comparison 09/05/18. There is again seen a right lower lobe opacity and right pleural effusion. There is also a small left pleural effusion. The lungs are otherwise clear. The heart size and pulmonary vascular are within normal limits. The bones are intact. There is an old T 12 compression fracture deformity present. IMPRESSION: Persistent right basilar opacity suspicious for pneumonia. Small bilateral pleural effusions. Follow up chest x-rays are recommended to document complete resolution of the infiltrate and to exclude underlying mass or other abnormality.
[2018-09-07] MEDS: levoFLOXacin 750 MG/150 ML BAG 100 MG IVPB (14:49)
[2018-09-07] MEDS: Enoxaparin 40 MG/0.4 ML SYR SC (16:07)
[2018-09-07] MEDS: Furosemide 20 MG/2 ML VIAL IVP (17:26)
[2018-09-07] MEDS: cloNIDine 0.1 MG TAB PO (20:50)
[2018-09-08 00:15] VITALS: BP 129/80; PULSE 64; RESP 17; TEMP 36.9; O2SAT 96
[2018-09-08 03:44] VITALS: BP 130/83; PULSE 65; RESP 18; TEMP 36.8; O2SAT 92
[2018-09-08 07:30] VITALS: BP 143/87; PULSE 73; RESP 18; TEMP 36.8; O2SAT 93
[2018-09-08] MEDS: Thiamine 100 MG TAB PO (09:09)
[2018-09-08] MEDS: Escitalopram 20 MG TAB PO (09:09)
[2018-09-08] MEDS: ARIPiprazole 5 MG TAB PO (09:09)
[2018-09-08] MEDS: Folic Acid 1 MG TAB PO (09:09)
[2018-09-08] MEDS: Normal Saline Flush 10 ML SYR IVP ×3 (09:09→14:29)
[2018-09-08] MEDS: Magnesium Oxide 400 MG TAB PO (09:09)
[2018-09-08] MEDS: Multivitamin TAB 1 TAB PO (09:09)
--- NOTE | 2018-09-08 10:05 | PT.INTREAT ---
Date of service: 09/08/18 Time of Service: 09:42 PT Notes Inpatient Physical Therapy Treatment Note [facility] Date: 09/08 PRECAUTIONS: Fall. Standard. SUBJECTIVE: Patient reports that she slept better night. She reports she still has wheezes but is a bit better. She reports dizziness during 4-stage Balance Test and Tinetti Balance Test. She also reported dizziness usp through the walk thorugh the big loop/entire MedSurg unit. Reports no chest pain nor headache throughout PT session. Dizziness is not provoked with head turning and positional changes. Dizziness subsided when patient rested. OBJECTIVE: Patient is seen resting in bed. PAIN: 0/10 BED MOBILITY/TRANSFERS Rolling L/R: I Supine-sit: I Sit-supine: I Sit-stand: I Stand-sit: I Bed-Chair: I Chair-bed: I GAIT Assistive Device: No AD Weight bearing: FWB Assist: SBA Distance: 150 feet x 2 Deviation:No wide-based gait. Reporetd dizziness usp through the walk necessitating a standing rest. ASSESSMENT: Patient demonstrates good tolerance to physical therapy session with observed improvement in terms of pain level, activity tolerance, self-efficacy/confidence, and participation level signifying fall risk. 4-stage balance test: Patient was able to sustain feet together, semi-tandem, and L tandem stance for 10 seconds but was unable to hold R tandem stance and one-legged stance on both sides. Tinetti Balance Test: Scored 21/28 signifying moderate fall risk without an assitive device PLAN: Patient to progress with mobility level, functional performance, and knowledge of HEP to achieve previously established goals. Patient will benefit from home health PT services in order to progress mobility level using least restrictive assistive ambulatory device/using no device, assess home safety, identify additional equipment needs, and establish a functional maintenance program that will increase ability of patient to remain at home. TREATMENT CODE/TIME: 81502 x 23 minutes beginning at 9:42 AM.
[2018-09-08 11:10] VITALS: BP 115/80; PULSE 68; RESP 20; TEMP 36.8; O2SAT 96
[2018-09-08 11:50] LABS: Abs Immature Grans 0.06 k/cumm (0.0-0.09); Absolute Basophil Count 0.02 k/cumm (0.0-0.2); Absolute Eosinophil Count 0.06 k/cumm (0.0-0.7); Absolute Lymphocyte Count 1.05 k/cumm (1.2-3.4); Absolute Neutrophil Count 2.79 k/cumm (1.2-6.7); Basophils % 0.4; Eosinophils % 1.3; HCT 39.6 % (36.0-46.0); HGB 13.9 g/dL (12.0-15.5); Immature Grans % 1.3; Lymphocytes % 23.4; Mean Corp. HGB Concentration 35.1 g/dL (32.0-36.0); Mean Corpuscular Hemoglobin 34.5 pg (27.0-33.0); Mean Corpuscular Volume 98.3 fL (80-95); Monocytes % 11.2; Neutrophils % 62.4; Platelet Count 325 x1000/uL (130-400); RBC 4.03 m/cumm (4.00-5.20); White Blood Cell Count 4.48 k/cumm (4.4-10.8)
[2018-09-08] MEDS: LORazepam 2 MG/ML VIAL 0.5 MG IVP (12:00)
[2018-09-08 12:01] LABS: Anion Gap 12.1 mmol/L (3-11); BUN 6 mg/dL (7-18); CO2 23.9 mmol/L (21.0-32.0); CREATININE 0.67 mg/dL (0.55-1.02); Calcium 8.3 mg/dL (8.5-10.1); Chloride 104 mmol/L (98-107); Glucose 101 mg/dL (70-100); Magnesium 1.8 mg/dL (1.8-2.4); Potassium 3.3 mmol/L (3.5-5.1); Sodium 140 mmol/L (136-145)
--- NOTE | 2018-09-08 12:40 | DI.MRI_ITS ---
SYMPTOMS/DIAGNOSIS: NEW DIZZINESS, GAIT ABNORMALITY, SUSPECTED CVA MRA OF THE BRAIN: A [place] examination was carried out with an axial time of flight 3D pulse sequence. There is no evidence of an aneurysm or stenosis. 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 MRI OF THE BRAIN: Sagittal T 2, axial T 2, axial diffusion, axial FLAIR, axial GRE and axial T 1 pulse sequences were performed. Small regions of increased signal are noted in the frontoparietal white matter bilaterally, most consistent with small vessel disease. There is no evidence of a hemorrhage or mass. There are no regions of restricted diffusion. Note is made of an apparent small retention cyst in the sphenoid sinus. SUMMARY: There are findings consistent with small vessel disease. There is nothing to suggest an infarct.
[2018-09-08 13:33] VITALS: BP 101/66; PULSE 79; RESP 16; TEMP 36.6; O2SAT 93
[2018-09-08] MEDS: levoFLOXacin 750 MG/150 ML BAG 100 MG IVPB (14:28)
[2018-09-08 15:00] VITALS: BP 118/80; PULSE 79; RESP 20; TEMP 37.2; O2SAT 96
--- NOTE | 2018-09-08 15:55 | W.PM.DS.N ---
Date of service: 09/08/18 Time of Service: 15:56 DS: Diagnosis Discharge Diagnosis (1) Right lower lobe pneumonia: Status: Acute (2) Hypotension: Status: Resolved (3) Alcohol abuse: Status: Chronic (4) Hypokalemia: Status: Resolved (5) Hypothyroidism: Status: Chronic (6) Depression: Status: Chronic (7) Anxiety: Status: Chronic (8) Nausea and vomiting: Status: Resolved (9) Ambulatory dysfunction: Status: Acute (10) Hypomagnesemia: Status: Acute Discharge Plan Disposition Patient Disposition: HOME W/HOME HEALTH SERVICE Condition: Stable Discharge Details Chief Complaint: GenMedical Clinical Impression: Pneumonia, Acute hypokalemia, Nausea vomiting and diarrhea Reason For Visit: ASPIRATION PNEUMONIA Admit Date/Time: 09/04/18 13:56 Admit Provider: Carlyn Guerrero Attending Provider: Carlyn Guerrero Primary Care Provider: Genaro Bonilla ED Provider: Hermes Garza Hospital Course Hospital Course: Ms Kuhn is a 63 year old female with PMHx of depression, anxiety, hypothyroidism, UC, and possible alcohol abuse, who was admitted to [facility] hospitalist service on 09/04/18 with RLL pneumonia, presumably due to aspiration in setting of a gastroenteritis, as well as hypotension due to dehydration. She was also quite hypokalemic. She was treated with IV fluids, IV levofloxacin, potassium and magnesium repletion with significant clinical improvement. On 09/07/18, there was new wheezing noted - this was felt to be due to a mild fluid overloaded and resolved with one dose of IV lasix. The patient did not go through alcohol withdrawal on this admission. She was evaluated by PT and found to have an unsteady gait. There was laterality to her balance problem, however, and we were obligated to rule out a CVA. MRI/MRA brain obtained on 09/08/18 was negative for an infarct. The patient will require a walker on discharge and would benefit from home health physical therapy as well as nursing. She will need a repeat CXR as outpatient to document resolution of infiltrate in 4-6 weeks. She is stable for discharge home today with 3 more days of levofloxacin. Care for patient as well as preparation of discharge summary took 45 minutes to complete. Home Meds and New Rx's Prescriptions: New multivitamin [Multiple Vitamins] Tablet 1 tab PO DAILY Qty: 30 RF: 0 magnesium oxide 400 mg (241.3 mg magnesium) Tablet 400 mg PO BID Qty: 14 RF: 0 thiamine mononitrate (vit B1) [Vitamin B-1 (mononitrate)] 100 mg Tablet 100 mg PO DAILY Qty: 30 RF: 0 levofloxacin 500 mg tablet 500 mg PO DAILY Qty: 3 RF: 0 Continued escitalopram oxalate [Lexapro] 20 mg Tablet 20 mg PO DAILY RF: 0 aripiprazole [Abilify] 5 mg Tablet 5 mg PO DAILY RF: 0 clonidine HCl 0.1 mg Tablet 0.1 mg PO BID RF: 0 Discontinued ibuprofen 600 mg Tablet 600 mg PO Q6H PRN PRN (Reason: Pain) RF: 0 Discharge Instructions Instructions: Levofloxacin (By mouth), How to Choose and Use a Walker (GEN) Additional Instructions: Finish your antibiotics as prescribed. Return to the hospital with any fever, bleeding, chest pain, or shortness of breath. Care Plan Goals: Home with home health PT/nursing Stand Alone Forms: Nursing Discharge Form Referrals: Yael Watson MD [ [facility] STAFF PHYSICIAN] - 09/13/18 8:00 am Activity:: Activity as Tolerated Equipment/Supplies:: Walker Diet:: As Tolerated Discharge Orders Discharge Orders: Discharge Order (Routine); Ordered 09/08/18 Ordered By: Carlyn Guerrero Other Ambulatory Orders: Basic Metabolic Panel (Routine) Timeframe: 1 Week Location: Determined by Patient Ordered By: Carlyn Guerrero Magnesium (Routine) Timeframe: 1 Week Location: Determined by Patient Ordered By: Carlyn Guerrero Exam Narrative Exam Narrative: General: Obese female, A&Ox3, laying comfortably in bed on her side, mildly tremulous. Looks better. Anxious. HEENT: EOMI, MMM Cardiovascular: RRR, no m/r/g Lungs: quiet crackles at R base; no wheezing today Gastrointestinal: abdomen is soft, nontender, nondistended Extremities: no e/c/c BLE's, 2+ pedal pulses B DS: Data Vitals/I&O Vitals and I&O: Vital Signs Temperature 37.2 C 09/08/18 15:00 Temperature Source Tympanic 09/08/18 15:00 Pulse 79 09/08/18 15:00 Pulse Rhythm Regular 09/08/18 15:09 Pulse 69 09/04/18 15:21 Respiratory Rate 20 09/08/18 15:00 Respiratory Effort 09/08/18 15:09 Respiratory Depth Normal 09/08/18 15:09 Respiratory Pattern Normal 09/08/18 15:09 Blood Pressure 118/80 09/08/18 15:00 Blood Pressure Mean 70 09/04/18 15:20 Blood Pressure Position Sitting 09/04/18 10:19 Pulse Oximetry 96 09/08/18 15:00 Oxygen Delivery Method Room Air 09/08/18 15:00 Oxygen Flow Rate 0 09/08/18 15:00 Pain Level 0 09/08/18 15:00 Comment 09/06/18 04:05 Intake & Output 09/07/18 09/08/18 09/08/18 23:59 11:59 23:59 Intake Total 1660 / 2875 370 / 370 Balance 1660 / 2875 370 / 370 Weight 82.9 kg Intake: IV 1180 / 2155 10 Oral 480 / 720 360 / 360 Other: Urine Color Yellow Yellow Urine Appearance Clear Clear Urine Odor Normal Normal Comment Pt voiding ad sen in toilet. Urine clear and yellow; no hat. Pt denies sx. VOID X 2 IN BR PER PT Pt voiding ad sen in toilet; no hat. Denies sx. Voiding Methods Toilet Toilet Toilet Completed studies during hospitalization [Text1]: CXR 09/05/18: Right lower lobe consolidation suspicious for pneumonia. Follow up chest xrays are recommended to document complete resolution of the opacity and to exclude other etiologies including mass. CXR 09/07/18: Persistent right basilar opacity suspicious for pneumonia. Small bilateral pleural effusions. Follow up chest x-rays are recommended to document complete resolution of the infiltrate and to exclude underlying mass or other abnormality. MRI brain 09/08/18: There are findings consistent with small vessel disease. There is nothing to suggest an infarct. MRA brain 09/08/18: A [place] examination was carried out with an axial time of flight 3D pulse sequence. There is no evidence of an aneurysm or stenosis. 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 Labs on day of discharge: Labs from last 24 hours 09/08/18 09/08/18 11:30 11:30 WBC 4.48 RBC 4.03 Hgb 13.9 Hct 39.6 MCV 98.3 H MCH 34.5 H MCHC 35.1 RDW 14.0 Plt Count 325 MPV 10.0 Immature Gran % 1.3 Neutrophils % 62.4 Lymphocytes % 23.4 Monocytes % 11.2 Eosinophils % 1.3 Basophils % 0.4 Absolute Neutrophils 2.79 Absolute Lymphocytes 1.05 L Absolute Monocytes 0.50 Absolute Eosinophils 0.06 Absolute Basophils 0.02 Sodium 140 Potassium 3.3 L Chloride 104 Carbon Dioxide 23.9 Anion Gap 12.1 H BUN 6 L Creatinine 0.67 Estimated GFR/1.73 m2 >= 60.00 Glucose 101 H Calcium 8.3 L Magnesium 1.8 Preliminary micro results at discharge 09/04/18 18:35 Blood Culture - Preliminary Blood NO GROWTH 72 HOURS 09/04/18 18:15 Blood Culture - Preliminary Blood NO GROWTH 72 HOURS PFS Medical History (Updated 09/08/18 @ 16:10 by Carlyn Guerrero MD) Alcohol abuse (Chronic) Anxiety (Chronic) Depression (Chronic) Hypothyroidism (Chronic) Ulcerative colitis (Chronic) Surgical History (Updated 09/04/18 @ 17:44 by Carlyn Guerrero MD) Hx of section (Chronic) Hx of colonoscopy (Chronic) Family History (Updated 09/04/18 @ 17:45 by Carlyn Guerrero MD) Father Heart disease Paternal Grandmother Cancer Maternal Grandmother Cancer Social History (Updated 09/04/18 @ 17:45 by Carlyn Guerrero MD) Smoking/Tobacco Use Status: Current every day Alcohol Intake: current Alcohol Intake frequency: a few times a week Alcohol type: beer Drug use: Socially Substance use type: former substance user and marijuana Do you feel safe at home: Yes Do you feel safe in your relationship?: Yes
--- NOTE | 2018-09-08 16:14 | PDOC.HHF2F ---
1. Encounter Date and Reason I certify that ALPA HICKMAN was seen by Carlyn Guerrero on 09/08/18 and that I had a [id number] encounter with this patient that meets the physician face to face encounter requirements. 2. Clinical Findings Supporting Skilled Need and Homebound Status I certify that home health services are medically necessary, include either intermittent senior living and/or physical/speech therapy, and that this patient is homebound in that absences from the home require considerable and taxing effort and are infrequent or of short duration, or are attributable to the need to receive medical care. [X] (a) Attached documentation from encounter provides clinical findings supporting skilled need and homebound status (including what assistance patient requires to leave the home). The encounter with the patient was in whole, or in part, for the following medical condition, which is the primary reason for home health care: ASPIRATION PNEUMONIA Care Home: assess BP, medication teaching. Physical Therapy: eval and treat Homebound: unable to leave home without assistance 3. Certification and Authentication I certify that I composed the above information based on my clinical judgement relating to this patient's medical condition and, if applicable, clinical findings communicated to me by the NPP or inpatient physician who performed the Home Health Referral. All further orders will be obtained through __Logan Perl (Community Based Physician - PCP)
--- NOTE | 2018-09-08 17:26 | CMDISCH_ITS ---
LACE Index Scoring Tool - Questions: Length of Stay (in days): 4 - 6 Acuity (Admit via E.D.?): Yes E.D. Visits: 2 - Answers: Total Score: 9 Risk of Readmission: Low Risk Care Management Discharge Reason for Hospitalization: Aspiration Pneumonia Discharge Plan: Martina will return home when ready per MD, she will follow up with her PCP and plan of care as prescribed. CM filled FWW prescription through [place] per patient preference. New orders for [facility] RN/PT anticipated. Martina willl transport via private vehicle with a friend. Patient/Family Education Needs: Review discharge instructions, discuss Ask Me Three. Services Needed at Discharge: DME Agency ([facility]-[place] ), Home Health Care Services (RN/PT)
--- NOTE | 2018-09-08 18:00 | PT.INDS ---
Date of service: 09/08/18 Time of Service: 09:42 PT Notes Inpatient Physical Therapy Discharge Summary Dates: 11/09/2018 Dates of Service: 11/08/2018 through 11/09/2018 Referring Doctor: Carlyn Guerrero MD PT Orders: PT CONSULT: Eval/treat Precautions: Fall. Standard. Activity as tolerated. Patient Profile/Admitting Diagnosis: Patient is a 63-year-old female with past medical history significant for depression, anxiety, and hypothyroidism who presented to the ED on 09/04/2018 with chief complaints of nausea, vomiting, and diarrhea that started 1 month ago. Patient was diagnosed with R LL Pneumonia, Hypotension, Alcohol abuse, hypokalemia, hypothyroidism, depression, and nausea/vomiting. referral for physical therapy was sent in order to address impairments in strength, balance, and mobility level. PMHX: Medical History (Updated 09/04/18 @ 17:59 by Carlyn Guerrero MD) Alcohol abuse (Chronic) Anxiety (Chronic) Depression (Chronic) Hypothyroidism (Chronic) Ulcerative colitis (Chronic) Surgical History (Updated 09/04/18 @ 17:44 by Carlyn Guerrero MD) Hx of section (Chronic) Hx of colonoscopy (Chronic) Social History/Home Situation: Patient lives alone on the thrid floor of an apartment Current Functional Limitations: Needs assistance with all transfers and ambulation with an assistive device Equipment Owned/DME: None Subjective: Patient looks forward to going home today. She states that she does not want to use a front wheeled walker walking from her place of residence to work saying that there is no room for it. She does have a cane but insists that she cannot bring same to work. Objective: General Observation: Patient seen resting in bed. Mental Status: Alert and oriented x 4 Pain: 0/10 ROM: Right Upper Extremity: Shoulder Flexion WFL. Shoulder abduction WFL. Elbow flexion WFL. Wrist flexion WFL. Functional opening and closing of hand WFL. Left Upper Extremity: Shoulder Flexion WFL. Shoulder abduction WFL. Elbow flexion WFL. Wrist flexion WFL. Functional opening and closing of hand WFL. Right Lower Extremity: Hip flexion WFL. Hip abduction WFL. Knee flexion WFL. Ankle dorsiflexion WFL. Ankle plantarflexion WFL. Left Lower Extremity: Hip flexion WFL. Hip abduction WFL. Knee flexion WFL. Ankle dorsiflexion WFL. Ankle plantarflexion WFL. Strength: Right Upper Extremity: Shoulder flexors 4/5. Shoulder abductors 4/5. Elbow flexors 4/5. Elbow extensors 4/5. Bottom Saw Operator strong. Left Upper Extremity: Shoulder flexors 4/5. Shoulder abductors 4/5. Elbow flexors 4/5. Elbow extensors 4/5. Bottom Saw Operator strong. Right Lower Extremity: Hip flexors 4-/5. Hip abductors 4-/5. Knee flexors 4/5. Knee extensors 4-/5. Ankle dorsiflexors 4-/5. Ankle plantarflexors 4-/5. Left Lower Extremity:Hip flexors 4-/5. Hip abductors 4-/5. Knee flexors 4/5. Knee extensors 4-/5. Ankle dorsiflexors 4-/5. Ankle plantarflexors 4-/5. Sensation: Intact as to pain and pressure on bilateral lower extremities. Bed Mobility/Transfers: Rolling independent Supine to sit independent Sit to supine independent Sit to stand independent Stand to sit independent Bed to chair independent Chair to bed independent Gait: Patient was able to tolerate up to 300 feet of level surface ambulation using no assistive device requiring supervision only and verbal cues for directions. No remarkable gait deviations except for decreased gait velocity. Balance: Static Sitting: Good Dynamic Sitting: Good Static Standing: Fair Dynamic Standing: Fair Special Tests: Mobility Limitations Standardized Measure [facility] 6 clicks Basic Mobility Inpatient Short Form: Raw Score: 18 CMS Score: 47% deficit 4-stage balance Test: Patient was able to assume positions 1, 2, and 3 but was not able to sustain a right tandem stance and one legged stance on either foot. Tinetti balance test revealed 21/28 placing the patient at moderate risk for falls without a front wheeled walker. Assessment: Patient was diagnosed with R LL Pneumonia, Hypotension, Alcohol abuse, hypokalemia, hypothyroidism, depression, and nausea/vomiting. Patient presents with clinical signs and symptoms consistent with current/admitting diagnoses that have resulted to mobility limitations, gait instability, generalized weakness, and impairment of motor control as demonstrated by the following impairment level findings: 1. Decreased strength to B LE major muscle groups 2. Impaired sitting/standing balance 3. Impaired activity tolerance Impairments are contributing to the following functional limitations: 4. Increase completion time for mobility ADL performance 5. Increased fall risk DISCHARGE RECOMMENDATIONS: Patient goes home today with FWW. Patient will benefit from home health PT services in order to progress mobility level using least restrictive assistive ambulatory device/using no device, assess home safety, identify additional equipment needs, and establish a functional maintenance program that will increase ability of patient to remain at home. TREATMENT CODE/TIME: 71267 x23 minutes beginning at 9:42 AM. Thank you very much for this referral. Toshia Buckley PT, DPT, CLT [facility]
== END 2018-09-08 16:40 | disposition home health service (06) | DRG 179 ==
LOC: ER 14:31 → MS 15:39
PROVIDERS: Admitting Provider Internal Medicine; Emergency Provider Nurse Practitioner Family; PCP Nurse Practitioner Family; Visit Provider Internal Medicine
DX: J69.0 Pneumonitis due to inhalation of food and vomit (principal); E86.0 Dehydration; F41.8 Other specified anxiety disorders; K52.9 Noninfective gastroenteritis and colitis, unspecified; F10.10 Alcohol abuse, uncomplicated; E03.9 Hypothyroidism, unspecified; E87.6 Hypokalemia; R11.2 Nausea with vomiting, unspecified; E83.42 Hypomagnesemia; R26.2 Difficulty in walking, not elsewhere classified; F17.210 Nicotine dependence, cigarettes, uncomplicated
CPT/HCPCS: 36410; 36415; 70544; 80048; 80053; 83690; 87040; 87449; 93005; 96361; 96365; 96366; 96367; 97162; 97530; 99223; 99232; 99239; 99285; J1650; 70551; 71046; 74177; 81003; 81015; 82607; 82746; 83605; 83735; 85025; 87070; 87205; 93010; J1941; J1956; J2060; J3475; J3480; J3490; J7613

== ENCOUNTER 2018-10-07 13:01 | Observation (INO) | payer MEDICAID, SELFPAY ==
[2018-10-07] VITALS (24 sets, daily range): BP systolic 77–125; BP diastolic 40–79; PULSE 62–127; RESP 14–27; TEMP 36.5–37.1; O2SAT 94–99
--- NOTE | 2018-10-07 13:11 | ED.GENADUL_ITS ---
Discharge Plan Disposition Patient Disposition: [facility] INPATIENT Condition: Stable Discharge Details Chief Complaint: Chest Pain Clinical Impression: Pulmonary emboli Primary Care Provider: Genaro Bonilla ED Provider: Marshall Jim Home Meds and New Rx's Prescriptions: No Action escitalopram oxalate [Lexapro] 20 mg Tablet 20 mg PO DAILY RF: 0 aripiprazole [Abilify] 5 mg Tablet 5 mg PO DAILY RF: 0 clonidine HCl 0.1 mg Tablet 0.1 mg PO BID RF: 0 multivitamin [Multiple Vitamins] Tablet 1 tab PO DAILY Qty: 30 RF: 0 thiamine mononitrate (vit B1) [Vitamin B-1 (mononitrate)] 100 mg Tablet 100 mg PO DAILY Qty: 30 RF: 0 Medical Decision Making 63 year old female with PMHx of depression, anxiety, hypothyroidism, UC, smoker, who comes in with chief complaint of right sided chest pain since yesterday especially with deep breathing. She had pna in August and thinks she may have this again, denies fevers or cough. Pain is nonradiating, no diaphoresis and appears well on exam. She has pain with palpation to the right upper thorax, no abdominal tenderness. Given pleuritic nature and recent hospitalization wells is moderate due to PE being just as likely dx as other etiologies, will obtain CTA to eval for this and PE. Heart score is 3, pain is atypical and ecg without significant ecg changes, will send troponin. No tearing back pain and normal vascular exam so doubt dissection pt's labs unremarkable, CTA shows mass/consolidation in right lower lobe that has improved since ct abdomen last month and has new mass/lesion in upper left lobe per Dr. Kumar along with bilateral lower lobe PE's. Pt remains hd stable and informed of results and likely cancer. She has no cough/fever/leukocytosis so doubt pna at this time. Spoke with Dr. Guerrero who will admit to med [facility] and order lovenox Medical Records Medical records reviewed: Yes I reviewed the patient's medical records. Imaging Data Radiologic Study: Attestation: I personally reviewed and interpreted this imaging study as follows: Imaging: CT Scan Radiologist's impression: CONCLUSION: Consolidative versus mass process in right lower lobe, persistent from 09/04/18. There is also a consolidative or mass-like radiodensity in left upper lobe anteriorly measuring 16 mm in diameter. The right lower lobe mass measures about 7 cm in diameter. Bilateral lower lobe segmental and subsegmental pulmonary emboli identified. New right pleural effusion noted. Lab Data Lab results reviewed: Yes I reviewed the patient's lab results. ECG Data Attestation: I personally reviewed and interpreted this ECG (s) as follows: Prior ECG tracings: available for review Interpretation: sinus rhythm, rate of 96, pr 138, no acute s t wave ischemic findings HPI General Mode of arrival: ambulatory . Date/Time Provider Initiated Documentation: 10/07/18 13:11 . Limitations to Documentation: no limitations . Information obtained by: patient . History of Present Illness 63 year old F presents to the emergency department with the chief complaint of chest pain, described as moderate, Quality is described as stabbing, and is localized to the chest. Patient started experiencing this day(s) (1) and it has been constant. No relieving factors improve symptom(s), Other factors that worsen symptoms (deep breaths) . Patient did receive the following treatments prior to arrival, none Related Data Home Medications Medication Instructions Recorded Confirmed aripiprazole [Abilify] 5 mg PO DAILY 06/23/18 10/07/18 escitalopram oxalate [Lexapro] 20 mg PO DAILY 06/23/18 10/07/18 clonidine HCl 0.1 mg PO BID 09/04/18 10/07/18 multivitamin [Multiple Vitamins] 1 tab PO DAILY #30 tab 09/08/18 10/07/18 thiamine mononitrate (vit B1) 100 mg PO DAILY #30 tab 09/08/18 10/07/18 [Vitamin B-1 (mononitrate)] Previous Rx's Medication Instructions Recorded multivitamin [Multiple Vitamins] 1 tab PO DAILY #30 tab 09/08/18 thiamine mononitrate (vit B1) 100 mg PO DAILY #30 tab 09/08/18 [Vitamin B-1 (mononitrate)] Allergies Allergy/AdvReac Type Severity Reaction Status Date / Time Sulfa (Sulfonamide AdvReac Intermediate headache/ Unverified 10/07/18 13:16 Antibiotics) itiching General ABIODUN: 3 Review of Systems Review of Systems All systems reviewed & are unremarkable except as noted in HPI and below Constitutional Denies chills, Denies fever(s) and Denies weakness ENT Denies change in voice Cardiovascular Denies chest pain and Denies dyspnea Respiratory Denies cough and Denies dyspnea Gastrointestinal Denies abdominal pain, Denies nausea and Denies vomiting Musculoskeletal Denies joint swelling Neurologic Denies weakness Endocrine Denies heat intolerance PFS Medical History (Updated 09/08/18 @ 16:10 by Carlyn Guerrero MD) Alcohol abuse (Chronic) Anxiety (Chronic) Depression (Chronic) Hypothyroidism (Chronic) Ulcerative colitis (Chronic) Surgical History (Updated 09/04/18 @ 17:44 by Carlyn Guerrero MD) Hx of section (Chronic) Hx of colonoscopy (Chronic) Family History (Updated 09/04/18 @ 17:45 by Carlyn Guerrero MD) Father Heart disease Paternal Grandmother Cancer Maternal Grandmother Cancer Social History (Updated 09/04/18 @ 17:45 by Carlyn Guerrero MD) Smoking/Tobacco Use Status: Current every day Alcohol Intake: current Alcohol Intake frequency: a few times a week Alcohol type: beer Drug use: Socially Substance use type: former substance user and marijuana Do you feel safe at home: Yes Do you feel safe in your relationship?: Yes Exam Const General: no acute distress Orientation: alert HENMT Head: normal to inspection Ears: external ears normal General nose exam: external nose normal Mouth: moist mucous membranes Eyes General: appearance normal, both eyes and all related structures Neck Neck: normal visual inspection Resp Effort & Inspection: normal respiratory effort and able to speak in complete sentences Cardio Rate: regular rate Skin General skin exam: no rashes or lesions noted Neuro General: alert and oriented x3 Extrem General: normal to inspection Psych Mental Status: mental status grossly normal
--- NOTE | 2018-10-07 13:21 | DI.CT_ITS ---
SYMPTOMS/DIAGNOSIS: PLEURITIC RIGHT-SIDED CHEST PAIN CT ANGIOGRAPHY, CHEST: CT angiography was performed with multi slice acquisition and multi planar and 3D reconstruction. CT angiography of the chest was performed with a bolus infusion of 60 cc of Omnipaque 350. Examination is compared with the previous abdominal and pelvic CT, which showed an apparent consolidative process of the posterior right lung base. This was incompletely imaged. On today's examination, again noted is apparent consolidation with a mass-like appearance of the right lung base. There is a right pleural effusion, which was not present on the previous examination. There are pulmonary emboli in segmental and subsegmental lower lobe vessels bilaterally. No central pulmonary embolus identified. Mild prominence of mediastinal lymph nodes noted with an 18 mm in diameter AP window node, 20 mm in diameter pretracheal node, and 19 mm in diameter right hilar node. The tracheobronchial tree appears intact except for narrowing of bronchi in the consolidative/mass-like area. No gross rib erosion or destruction in subjacent chest wall. Note is also made of an area of consolidative or mass-like opacity in the left upper lobe measuring about 16 mm in diameter on axial images. Images obtained through the upper abdomen show unremarkable appearance of visualized portions of the liver, spleen, pancreas, adrenals and kidneys. No supraclavicular or axillary adenopathy. Please note a T12 compression fracture is present and appears probably old, unchanged from examination of 08/2018, but not present on previous CT of 2016. CONCLUSION: Consolidative versus mass process in right lower lobe, persistent from 09/04/18. There is also a consolidative or mass-like radiodensity in left upper lobe anteriorly measuring 16 mm in diameter. The right lower lobe mass measures about 7 cm in diameter. Bilateral lower lobe segmental and subsegmental pulmonary emboli identified. New right pleural effusion noted. The findings are suspicious for a malignant process, but atypical pneumonia or pulmonary infarct may be considered in the differential diagnosis.
[2018-10-07] MEDS: Aspirin 81 MG CHEW 324 MG CH (13:35)
[2018-10-07 13:58] LABS: Lipase 243 U/L (73-393); Magnesium 1.7 mg/dL (1.8-2.4); NT-proBNP 512 pg/mL
[2018-10-07 13:59] LABS: Troponin I < 0.05 ng/mL (0.00-0.06)
[2018-10-07 14:16] LABS: HCT 45.1 % (36.0-46.0); HGB 15.1 g/dL (12.0-15.5); RBC 4.25 m/cumm (4.00-5.20)
[2018-10-07 14:17] LABS: Mean Corp. HGB Concentration 33.5 g/dL (32.0-36.0); Mean Corpuscular Hemoglobin 35.5 pg (27.0-33.0); Mean Corpuscular Volume 106.1 fL (80-95); Mean Platelet Volume 9.8 fL (8.0-11.0); Platelet Count 338 x1000/uL (130-400); RBC Distribution Width 17.3 % (11.7-14.6)
[2018-10-07 14:26] LABS: Absolute Lymphocyte Count 1.35 k/cumm (1.2-3.4); Absolute Monocyte Count 0.73 k/cumm (0.11-0.7); Absolute Neutrophil Count 8.22 k/cumm (1.2-6.7); Atypical Lymphocytes % 1; Diff Comment Manual Differential
[2018-10-07 14:27] LABS: Macrocytosis 2+; Polychromasia Present; Stomatocytes 2+
[2018-10-07] MEDS: Omnipaque 350 MG/ML 100 ML BTL IJ (14:47)
[2018-10-07 14:59] LABS: Bilirubin Small (Negative); Blood Negative (Negative); Clarity Clear (Clear); Glucose Negative (Negative); Ketones Trace mg/dL (Negative); Leukocyte Esterase Negative (Negative); Nitrite Negative (Negative); Specific Gravity 1.015 (1.005-1.025)
[2018-10-07 15:07] LABS: Bacteria Few HPF (Negative); C & S Indicated? No; Casts Negative LPF (Negative); Crystals Negative HPF (Negative); Epithelial Cells Moderate HPF (Negative); Mucus Trace (Negative); RBC 0-2 (0-2); WBC 0-2 HPF (0-5)
--- NOTE | 2018-10-07 15:39 | DI.US_ITS ---
SYMPTOM/DIAGNOSIS: B PE, CONCERN FOR DVT'S DUPLEX VENOUS ULTRASOUND, BOTH LOWER EXTREMITIES: 10/07 Duplex evaluation of the deep venous system was performed according to the usual protocol. The deep veins are freely compressible throughout to the level of the popliteal veins. There is normal doppler flow visible throughout and there is excellent flow augmentation with manual calf compression. CONCLUSION: No evidence of deep venous thrombosis.
[2018-10-07] MEDS: Normal Saline 1,000 ML 125 ML IV ×2 (15:48→16:53)
[2018-10-07 16:37] LABS: BUN 6 mg/dL (7-18); CREATININE 0.67 mg/dL (0.55-1.02); Sodium 139 mmol/L (136-145)
--- NOTE | 2018-10-07 16:49 | DI.VRAD_ITS ---
EXAM: US Duplex Bilateral Lower Extremity Veins EXAM DATE/TIME: 10/07/2018 4:18 PM CLINICAL HISTORY: 63 years old, female; Condition or disease; Other: Pe TECHNIQUE: Imaging protocol: Real-time duplex ultrasound of the Bilateral Lower Extremities with 2-D parsons scale, color Doppler flow and spectral waveform analysis with image documentation. Complete exam focused on the bilateral lower extremity veins. COMPARISON: No relevant prior studies available. FINDINGS: Right deep veins: Unremarkable. The common femoral, femoral, proximal profunda femoral and popliteal veins are patent without thrombus. Normal Doppler waveforms. Normal compressibility and/or augmentation response. Right superficial veins: Saphenofemoral junction is patent without thrombus. Left deep veins: Unremarkable. The common femoral, femoral, proximal profunda femoral and popliteal veins are patent without thrombus. Normal Doppler waveforms. Normal compressibility and/or augmentation response. Left superficial veins: Saphenofemoral junction is patent without thrombus. Soft tissues: Unremarkable. IMPRESSION: No acute findings. No evidence of deep vein thrombosis. Dictated and Authenticated by: Golden Meza MD. Ordering:LISS Alcocer MD
[2018-10-07] MEDS: Acetaminophen 325 MG TAB PO (16:52)
[2018-10-07] MEDS: traMADol 50 MG TAB PO (16:53)
[2018-10-07] MEDS: Enoxaparin 40 MG/0.4 ML SYR 80 MG SC (16:54)
[2018-10-07 17:35] LABS: Anion Gap 10.8 mmol/L (3-11); CO2 24.2 mmol/L (21.0-32.0); Calcium 8.3 mg/dL (8.5-10.1); Chloride 104 mmol/L (98-107); Glucose 99 mg/dL (70-100)
--- NOTE | 2018-10-07 17:52 | HPE_ITS ---
Date of service: 10/07/18 Time of Service: 17:53 Assessment and Plan (1) Bilateral pulmonary embolism: Current visit: Yes Status: Acute Possibly due to hypercoagulable state of malignancy. Monitor on tele. Obtain echo. Anticoagulation with lovenox - will attempt to arrange biopsy and discuss with oncology re which anticoagulation strategy they prefer. R/o DVT BLE's/LUE (2) Pain and swelling of left upper extremity: Current visit: Yes Status: Acute Obtaining venous doppler LUE. Avoid BP measurements, IVs/blood draws in L arm. (3) Lung mass: Current visit: Yes Status: Acute Given history of cancer, diagnosis of cancer is highly suspected. Doubt PNA given absence of fever, leucocytosis, cough. Will need outpatient pulmonary follow up - will refer. (4) Hypomagnesemia: Current visit: No Status: Acute Replete and monitor (5) Depression: Current visit: No Status: Chronic Continue lexapro (6) Anxiety: Current visit: No Status: Chronic Continue lexapro (7) Hypothyroidism: Current visit: No Status: Chronic Patient is not on synthroid as outpatient. Last TSH was 5.05 in August. Will recheck. (8) Alcohol abuse: Current visit: No Status: Chronic Continue MVI and thiamine. Place on CIWA (9) Pleuritic chest pain: Current visit: Yes Status: Acute NSAIDS are relatively contraindicated given anticoagulation. Ultram did not seem to be effective. Trial percocet/prn morphine. (10) Discharge planning issues: Current visit: No Status: Acute Full code Will need pulmonary referral (11) DVT prophylaxis: Current visit: No Status: Acute Full anticoagulation with lovenox History of Present Illness Chief Complaint: Chest pain Narrative: Ms Kuhn is a 63 year old female with PMHx of tobacco abuse, hypothyroidism, depression, anxiety, recent RLL pneumonia, who presented to [facility] ED today complaining of chest pain. She first noticed pain, which she describes are R flank pain, a couple of nights ago, worse with inspiration. This morning she felt worse. She described the chest pain as central and it was accompanied by shortness of breath. It hurt to lay down and breathe. She denied fevers, chills, cough including hemoptysis, weight loss, profuse night sweats (endorses some degree of night sweats), changes to appetite. She denies dizziness, palpitations, She did have some nausea with these symtoms, but no vomiting. Denies dysuria, but reports urinary frequency. Reports having LUE swelling - she thinks ever since her hospitalization here in August. In the ED, her workup revealed RLL consolidation vs mass, NICOLE mass, in addition to BLL segmental and subsegmental pulmonary emboli and R pleural effusion. She was initiated on lovenox. We were asked to admit the patient for further care and pain control. She was hemodynamically stable in ED. Review of Systems Review of Systems 12 systems reviewed. Pertinent positives and negatives are as per HPI [facility] Medical History (Updated 10/07/18 @ 18:14 by Carlyn Guerrero MD) Alcohol abuse (Chronic) Anxiety (Chronic) Depression (Chronic) Hypothyroidism (Chronic) Ulcerative colitis (Chronic) Surgical History (Updated 09/04/18 @ 17:44 by Carlyn Guerrero MD) Hx of section (Chronic) Hx of colonoscopy (Chronic) Family History (Updated 09/04/18 @ 17:45 by Carlyn Guerrero MD) Father Heart disease Paternal Grandmother Cancer Maternal Grandmother Cancer Social History (Updated 09/04/18 @ 17:45 by Carlyn Guerrero MD) Smoking/Tobacco Use Status: Current every day Alcohol Intake: current Alcohol Intake frequency: a few times a week Alcohol type: beer Drug use: Socially Substance use type: former substance user and marijuana Do you feel safe at home: Yes Do you feel safe in your relationship?: Yes Meds Home Medications Medication Instructions Recorded Confirmed Type aripiprazole [Abilify] 5 mg PO DAILY 06/23/18 10/07/18 History escitalopram oxalate [Lexapro] 20 mg PO DAILY 06/23/18 10/07/18 History multivitamin [Multiple Vitamins] 1 tab PO DAILY #30 tab 09/08/18 10/07/18 Rx thiamine mononitrate (vit B1) 100 mg PO DAILY #30 tab 09/08/18 10/07/18 Rx [Vitamin B-1 (mononitrate)] ibuprofen 600 mg PO Q6H PRN PRN 10/07/18 10/07/18 History Allergies Allergy/AdvReac Type Severity Reaction Status Date / Time Sulfa (Sulfonamide AdvReac Intermediate headache/ Unverified 10/07/18 13:16 Antibiotics) itiching Exam Narrative Exam Narrative: General: Very pleasant middle-aged female, appears sad, sitting comfortably in bed Neurological: A&OX3, not tremulous like the last time when we saw her, no obvious focal deficits Psychiatric: appropriate speech pattern/content; appears sad Skin: LUE does appear mildly swollen with an erythematous stripe on medial volar surface HEENT: Atraumatic, normocephalic, EOMI, MMM, clear oropharynx, no submandibular or cervical lymphadenopathy, + mild goiter, no JVD Cardiovascular: RRR, no m/r/g Lungs: quiet crackles at R base Gastrointestinal: abdomen is soft, nontender, nondistended Extremities: read LUE exam above; BLE without e/c/c; 1+ pedal pulses B Results Imaging Additional studies: EKG: HR 96, Sinus rhythm, no acute ischemia CTA chest: Consolidative versus mass process in right lower lobe, persistent from 09/04/18. There is also a consolidative or mass-like radiodensity in left upper lobe anteriorly measuring 16 mm in diameter. The right lower lobe mass measures about 7 cm in diameter. Bilateral lower lobe segmental and subsegmental pulmonary emboli identified. New right pleural effusion noted. The findings are suspicious for a malignant process, but atypical pneumonia or pulmonary infarct may be considered in the differential diagnosis. Labs : 10/07/18 13:30 10/07/18 17:10 Laboratory Results - last 24 hr 10/07/18 10/07/18 10/07/18 13:30 14:50 17:10 WBC 10.40 RBC 4.25 Hgb 15.1 Hct 45.1 MCV 106.1 H MCH 35.5 H MCHC 33.5 RDW 17.3 H Plt Count 338 MPV 9.8 Immature Gran % See Differential Neutrophils % 79.0 Lymphocytes % 12.0 Atypical Lymphs % 1 Monocytes % 7.0 Eosinophils % 1.0 Basophils % 0.0 Absolute Neutrophils 8.22 H Absolute Lymphocytes 1.35 Absolute Monocytes 0.73 H Absolute Eosinophils 0.10 Absolute Basophils 0.00 Differential Comment Manual differential RBC Morphology See below Polychromasia Present Macrocytosis 2+ Stomatocytes 2+ Sodium 139 Potassium 3.0 L Chloride 104 Carbon Dioxide 24.2 Anion Gap 10.8 BUN 6 L Creatinine 0.67 Glucose 99 Calcium 8.3 L Magnesium 1.7 L Troponin I < 0.05 NT-Pro-B Natriuret Pep 512 H Lipase 243 Urine Color Dark yellow Urine Clarity Clear Urine pH 7.0 Ur Specific [place] 1.015 Urine Protein Trace H Urine Ketones Trace H Urine Blood Negative Urine Nitrite Negative Urine Bilirubin Small H Urine Urobilinogen 2.0 H Ur Leukocyte Esterase Negative Urine RBC 0-2 Urine WBC 0-2 Ur Epithelial Cells Moderate Urine Crystals Negative Urine Bacteria Few Urine Casts Negative Urine Mucus Trace Ur Culture Indicated? No Urine Glucose Negative Last Vital Signs Temp 37 C 10/07/18 17:04 Pulse 80 10/07/18 17:04 Resp 24 10/07/18 17:04 BP 117/79 10/07/18 17:04 Pulse Ox 95 10/07/18 17:04
[2018-10-07] MEDS: oxyCODONE 5 mg/Acetaminophen 325 mg TAB 1 TAB PO ×2 (18:03→22:31)
[2018-10-07] MEDS: MAGNESIUM SULFATE 2 GM/50 ML BAG IVPB (18:10)
[2018-10-07] MEDS: Nicotine 14 MG/24 HR PATCH TD (18:10)
--- NOTE | 2018-10-07 19:20 | NUR.NOTE ---
Nursing Note: arm measurements per dr. marko stafford 29.4 cm lla 27 laverne 28.5 rla 26 area of redness and swelling on left arm highlighted with skin marker
[2018-10-07 20:47] LABS: Troponin I < 0.05 ng/mL (0.00-0.06)
[2018-10-08] VITALS (12 sets, daily range): BP systolic 85–115; BP diastolic 63–77; PULSE 62–87; RESP 16–20; TEMP 35.6–36.9; O2SAT 93–96
[2018-10-08] MEDS: Normal Saline 1,000 ML 125 ML IV ×2 (00:33→10:35)
[2018-10-08] MEDS: oxyCODONE 5 mg/Acetaminophen 325 mg TAB 1 TAB PO ×2 (02:35→07:34)
[2018-10-08] MEDS: Enoxaparin 40 MG/0.4 ML SYR 80 MG SC ×2 (05:11→17:49)
[2018-10-08 07:30] LABS: HCT 43.3 % (36.0-46.0); HGB 14.3 g/dL (12.0-15.5); Mean Corpuscular Hemoglobin 36.1 pg (27.0-33.0); Mean Corpuscular Volume 109.3 fL (80-95); Mean Platelet Volume 9.1 fL (8.0-11.0); Platelet Count 320 x1000/uL (130-400); RBC 3.96 m/cumm (4.00-5.20); RBC Distribution Width 16.9 % (11.7-14.6); White Blood Cell Count 8.42 k/cumm (4.4-10.8)
[2018-10-08 07:42] LABS: Prothrombin Time 9.6 sec (9.3-11.0)
--- NOTE | 2018-10-08 07:44 | MERGE_ITS ---
*[facility]* *[facility]* [address] [place] [address] Date of study: 10/08/2018 Transthoracic Echocardiography M-mode, complete 2D, complete spectral Doppler, and color Doppler *STUDY CONCLUSIONS* Summary: 1. Left ventricle: The cavity size was normal. Wall thickness was normal. Systolic function was normal. The estimated ejection fraction was 60-65%. Wall motion was normal; there were no regional wall motion abnormalities. 2. Right ventricle: The cavity size was normal. Systolic function was normal. 3. Inferior vena cava: The vessel was normal in size. The respirophasic diameter changes were in the normal range (greater than or equal to 50%), consistent with normal central venous pressure. *PATIENT PRESENTATION* Height: 165.1cm (65in ) S/D Pressure: 92 / 64 Weight: 80.3kg (176.6lb ) BSA: 1.94m^2 Test start time: 07:40 AM. Test stop time: 08:40 AM. PERFORMING Unknown PERFORMING [facility] [employer] Annalisa Kenny CONSULTING Carlyn Guerrero ORDERING Carlyn Guerrero REFERRING Carlyn Guerrero *PROCEDURE DATA* Procedure information: This study was interpreted by [facility]. Pertinent images and digital data are archived for permanent storage and are available for subsequent review. No prior study was available for comparison. Study status: Routine. Transthoracic echocardiography. M-mode, complete 2D, complete spectral Doppler, and color Doppler. A Transthoracic Echocardiogram was performed. Scanning was performed from the parasternal, apical, subcostal, and suprasternal notch acoustic windows. Images were obtained using an [employer] 2000 cardiac ultrasound machine. Image quality was adequate. Study completion: The patient tolerated the procedure well. There were no complications. History: PMH: PE, Chest pain. *CARDIAC ANATOMY* Left ventricle: The cavity size was normal. Wall thickness was normal. Systolic function was normal. The estimated ejection fraction was 60-65%. Wall motion was normal; there were no regional wall motion abnormalities. Aortic valve: Trileaflet; normal thickness leaflets. Mobility was not restricted. Doppler: Transvalvular velocity was within the normal range. There was no stenosis. There was no significant regurgitation. VTI ratio of LVOT to aortic valve: 0.88. Valve area (VTI): 2.2cm^2. Indexed valve area (VTI): 1.2cm^2/m^2. Peak velocity ratio of LVOT to aortic valve: 0.91. Valve area (Vmax): 2.3cm^2. Indexed valve area (Vmax): 1.2cm^2/m^2. Mean velocity ratio of LVOT to aortic valve: 0.82. Valve area (Vmean): 2.1cm^2. Indexed valve area (Vmean): 1.1cm^2/m^2. Mean gradient (S): 4.1mm Hg. Peak gradient (S): 8mm Hg. Aorta: Aortic root: The aortic root was normal in size. Ascending aorta: The ascending aorta was normal in size. Mitral valve: Structurally normal valve. Mobility was not restricted. Doppler: Transvalvular velocity was within the normal range. There was no evidence for stenosis. There was trivial regurgitation. Valve area by pressure half-time: 4.1cm^2. Indexed valve area by pressure half-time: 2.1cm^2/m^2. Peak gradient (D): 2.2mm Hg. Left atrium: The atrium was normal in size. Right ventricle: The cavity size was normal. Systolic function was normal. Pulmonic valve: Poorly visualized. Doppler: Transvalvular velocity was within the normal range. There was no evidence for stenosis. There was no significant regurgitation. Tricuspid valve: Structurally normal valve. Doppler: Transvalvular velocity was within the normal range. There was no evidence for stenosis. There was trivial regurgitation. Pulmonary artery: Poorly visualized. Pulmonary systolic pressure was within the normal range, in the range of 25mm Hg to 30mm Hg. Right atrium: The atrium was normal in size. Pericardium: There was no pericardial effusion. Systemic veins: Inferior vena cava: The vessel was normal in size. The respirophasic diameter changes were in the normal range (greater than or equal to 50%), consistent with normal central venous pressure. Measurements Left ventricle Value Reference LV ID, ED, PLAX 4.1 cm 3.5 - 6.0 LV ID, ES, PLAX 2.8 cm 2.1 - 4.0 LV PW thickness, ED, PLAX 1.0 cm LV end-diastolic volume, 1-p A2C 57 ml LV ejection fraction, 1-p A2C 71 % LV end-diastolic volume, 1-p A4C 63 ml LV ejection fraction, 1-p A4C 68 % LV e', lateral 0.077 m/sec LV E/e', lateral 10 LV e', medial 0.077 m/sec LV E/e', medial 10 LV e', average 0.077 m/sec LV E/e', average 10 Ventricular septum Value Reference IVS thickness, ED, PLAX 1.0 cm LVOT Value Reference LVOT ID, A-P 1.8 cm LVOT area 2.6 cm^2 LVOT peak velocity, S 1.28 m/sec LVOT mean velocity, S 0.77 m/sec LVOT VTI, S 24.7 cm LVOT peak gradient, S 6.6 mm Hg LVOT mean gradient, S 2.9 mm Hg Stroke volume (SV), LVOT DP 63 ml Stroke index (SV/bsa), LVOT DP 32 ml/m^2 Aortic valve Value Reference Aortic valve peak velocity, S 1.4 m/sec Aortic valve mean velocity, S 0.9 m/sec Aortic valve VTI, S 28.0 cm Aortic mean gradient, S 4.1 mm Hg Aortic peak gradient, S 8 mm Hg VTI ratio, LVOT/AV 0.88 Aortic valve area, VTI 2.2 cm^2 Velocity ratio, peak, LVOT/AV 0.91 Aortic valve area, peak velocity 2.3 cm^2 Velocity ratio, mean, LVOT/AV 0.82 Aortic valve area, mean velocity 2.1 cm^2 Aortic valve area/bsa, mean velocity 1.1 cm^2/m^2 Aorta Value Reference Aortic root ID, ED 2.8 cm Ascending aorta ID, A-P, S 3.3 cm Left atrium Value Reference LA ID, A-P, ES 3.3 cm LA ID/bsa, A-P 1.7 cm/m^2 <=2.2 LA volume, ES, 2-p 38 ml LA volume/bsa, ES, 2-p 20 ml/m^2 LA/aortic root ratio 1.16 Mitral valve Value Reference Mitral E-wave peak velocity 0.74 m/sec Mitral A-wave peak velocity 0.66 m/sec Mitral deceleration time 184 ms 150 - 230 Mitral pressure half-time 53 ms Mitral peak gradient, D 2.2 mm Hg Mitral E/A ratio, peak 1.12 Mitral valve area, PHT, DP 4.1 cm^2 Tricuspid valve Value Reference Tricuspid regurg peak velocity 2.5 m/sec Tricuspid peak RV-RA gradient 24.1 mm Hg Right atrium Value Reference RA area, ES, A4C 14.9 cm^2 8.3 - 19.5 Legend: (L) and (H) rogelio values outside specified reference range. I have personally reviewed the images and have reviewed and edited the reported findings. Electronically signed by Barbara Jack 10/08/2018 09:30
[2018-10-08 07:53] LABS: BUN 7 mg/dL (7-18); CREATININE 0.56 mg/dL (0.55-1.02); Calcium 7.7 mg/dL (8.5-10.1); Chloride 107 mmol/L (98-107); Glucose 89 mg/dL (70-100); Magnesium 2.2 mg/dL (1.8-2.4); Sodium 142 mmol/L (136-145); TSH (W/Ref FT4) 6.28 uIU/mL (0.36-3.74)
[2018-10-08 07:57] LABS: Troponin I < 0.05 ng/mL (0.00-0.06)
--- NOTE | 2018-10-08 08:00 | DI.US_ITS ---
SYMPTOMS/DIAGNOSIS: LUE SWELLING, ? THROMBOPHLEBITIS, CUAUHTEMOC PE'S DUPLEX VENOUS ULTRASOUND LEFT UPPER EXTREMITY: Duplex evaluation of the deep venous system of the left upper extremity was performed according to the usual protocol. There is thrombus in the axillary vein, basilic vein and radial vein of the left upper extremity. Brachial veins appear free of thrombus. CONCLUSION: DVT of the left upper extremity as described above.
[2018-10-08 08:15] LABS: FREE T4 0.94 ng/dL (0.76-1.46)
--- NOTE | 2018-10-08 08:23 | PDOC.CMIN ---
- If Service Date Differs Date of service: 10/08/18 Time of Service: 08:23 Care Management Initial Assess REASON FOR HOSPITALIZATION:: Bilateral Pulmonary Emboli PAST MEDICAL HISTORY/PAST SURGICAL HISTORY:: Medical History : Alcohol abuse (Chronic). Anxiety (Chronic). Depression (Chronic). Hypothyroidism (Chronic). Ulcerative colitis (Chronic). Surgical History: Hx of section (Chronic). Hx of colonoscopy (Chronic) PREVIOUS FUNCTIONAL STATUS/SOCIAL/FAMILY SUPPORTS:: Martina lives alone in an apartment in [place]. 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 She is independent with all care and activities. She does not drive. CURRENT FUNCTIONAL STATUS:: Martina was siting up in bed when CM met with her. She was not smiling and had a serious facial expression. She informed CM that she had a mass in her lungs which was probably cancer. She stated that this information was given to her by the doctor. She was told she would be referred to an Oncologist. She shared that she was not very good at taking care of herself and that she doesn not follow up with doctors as she should. ADVANCE DIRECTIVES:: None on file at [facility] and is not interested Has patient been provided with information about the portal?: No Did the patient sign up for the portal?: No CODE STATUS:: Full Code INSURANCE COVERAGE / FINANCIAL ISSUES:: Medicaid CURRENT HOME/COMMUNITY SERVICES/EQUIPMENT:: none currently PRIMARY CARE PHYSICIAN:: Genaro Bonilla POTENTIAL DISCHARGE NEEDS:: Follow up with Pulmonology, PCP and plan of care PATIENT/FAMILY EDUCATION NEEDS:: Discharge plan, limitations, follow up plan and Ask Me Three ANTICIPATED BARRIERS TO DISCHARGE:: none anticipated TRANSPORTATION:: via private vehicle with friends or family PLAN:: Martina will undergo additional testing to further elucidate the nature of the masses in her lung. She will follow up with Oncology and Pulmonology, likely at [facility]. CM will continue to support patient,family and discharge planning needs.
[2018-10-08] MEDS: Normal Saline 1,000 ML 1000 ML IV (08:56)
[2018-10-08] MEDS: Nicotine 14 MG/24 HR PATCH TD (08:56)
[2018-10-08] MEDS: ARIPiprazole 5 MG TAB PO (08:57)
[2018-10-08] MEDS: Thiamine 100 MG TAB PO (08:57)
[2018-10-08] MEDS: Multivitamin TAB 1 TAB PO (08:57)
[2018-10-08] MEDS: Escitalopram 20 MG TAB PO (08:57)
[2018-10-08] MEDS: Normal Saline Flush 10 ML SYR (12:13)
--- NOTE | 2018-10-08 12:43 | PGE_ITS ---
Date of Service Date of service: 10/08/18 Time of Service: 12:43 Assessment and Plan (1) Bilateral pulmonary embolism: Current visit: Yes Status: Acute Possibly due to hypercoagulable state of malignancy. No evidence of DVT's in either lower extremity. LUE ultrasounds is still pending. No arrhythmias overnight. Ok to d/c tele. Anticoagulated with lovenox - oncology opinion will be sought, however, given likely underlying malignancy and likely biopsy of lung masses, lovenox is probably the best drug at this time. Referral to pulmonology placed. Work on pain control and lovenox teaching in the next 24 hours. Anticipate discharge home tomorrow. (2) Pain and swelling of left upper extremity: Current visit: Yes Status: Acute Await venous doppler LUE. Avoid BP measurements, IVs/blood draws in L arm. (3) Lung mass: Current visit: Yes Status: Acute Given B PE's, diagnosis of cancer is highly suspected. Doubt PNA given absence of fever, leucocytosis, cough. No role for antibiotics. Referring to pulmonology. (4) Hypomagnesemia: Current visit: No Status: Resolved Recheck in am. (5) Depression: Current visit: No Status: Chronic Continue lexapro (6) Anxiety: Current visit: No Status: Chronic Continue lexapro (7) Hypothyroidism: Current visit: No Status: Chronic Patient is not on synthroid as outpatient. TSH is 6.28 today with nml FT4. We could consider starting a low dose of synthroid, but the patient's TSH could also be elevated due to this acute event/reactive. Will defer to outpatient provider. (8) Alcohol abuse: Current visit: No Status: Chronic Continue MVI and thiamine. Very low CIWA scores so far. (9) Pleuritic chest pain: Current visit: Yes Status: Acute NSAIDS are relatively contraindicated given anticoagulation. N/v to percocet, but states she has had hydrocodone in the past - will trial. (10) Discharge planning issues: Current visit: No Status: Acute Full code Pulmonary referral placed. Will need lovenox teaching (ordered). (11) DVT prophylaxis: Current visit: No Status: Acute Full anticoagulation with lovenox Subjective Interval history since last seen: States her pain and shortness of breath are a little bit better. However, she was not able to tolerate the percocet PO this morning - had vomiting. Denies dizziness at rest, endorses some with walking, denies nausea/vomiting/abdominal pain now. She thinks she would be able to do her own lovenox injections and is open to the idea of teaching. Exam Narrative Exam Narrative: General: Very pleasant middle-aged female, looks a little bit better sitting up in bed, no tachypnea, looks more comfortable; A&Ox3. Skin: LUE does appear mildly swollen with an erythematous stripe on medial surface, unchanged HEENT: EOMI, MMM, clear oropharynx, no submandibular or cervical lymphadenopathy, + mild goiter, no JVD Cardiovascular: RRR, no m/r/g Lungs: quiet crackles at R base, unchanged Gastrointestinal: abdomen is soft, nontender, nondistended Extremities: read LUE exam above; BLE without e/c/c; 1+ pedal pulses B Objective Objective Clinical Data: Abnormal lab results 10/07/18 10/07/18 10/07/18 Range/Units 13:30 14:50 17:10 RBC (4.00-5.20) m/cumm MCV 106.1 H (80-95) fL MCH 35.5 H (27.0-33.0) pg RDW 17.3 H (11.7-14.6) % Absolute Neutrophils 8.22 H (1.2-6.7) k/cumm Absolute Monocytes 0.73 H (0.11-0.7) k/cumm Potassium 3.0 L (3.5-5.1) mmol/L BUN 6 L (7-18) mg/dL Calcium 8.3 L (8.5-10.1) mg/dL Magnesium 1.7 L (1.8-2.4) mg/dL NT-Pro-B Natriuret Pep 512 H ( - 299) pg/mL TSH (0.36-3.74) uIU/mL Urine Protein Trace H (Negative) mg/dL Urine Ketones Trace H (Negative) mg/dL Urine Bilirubin Small H (Negative) Urine Urobilinogen 2.0 H (Up TO 0.2) EU/dL 10/08/18 10/08/18 Range/Units 07:05 07:05 RBC 3.96 L (4.00-5.20) m/cumm MCV 109.3 H D (80-95) fL MCH 36.1 H (27.0-33.0) pg RDW 16.9 H (11.7-14.6) % Absolute Neutrophils (1.2-6.7) k/cumm Absolute Monocytes (0.11-0.7) k/cumm Potassium 3.0 L (3.5-5.1) mmol/L BUN (7-18) mg/dL Calcium 7.7 L (8.5-10.1) mg/dL Magnesium (1.8-2.4) mg/dL NT-Pro-B Natriuret Pep ( - 299) pg/mL TSH 6.28 H (0.36-3.74) uIU/mL Urine Protein (Negative) mg/dL Urine Ketones (Negative) mg/dL Urine Bilirubin (Negative) Urine Urobilinogen (Up TO 0.2) EU/dL Vital Signs Temperature 36 C L 10/08/18 11:15 Temperature Source Tympanic 10/08/18 11:15 Pulse 72 10/08/18 11:15 Pulse Rhythm Regular 10/08/18 07:25 Pulse 92 H 10/07/18 15:33 Respiratory Rate 20 10/08/18 11:15 Respiratory Effort Non-Labored 10/08/18 07:25 Respiratory Depth Normal 10/08/18 07:25 Respiratory Pattern Normal 10/08/18 07:25 Blood Pressure 108/68 10/08/18 11:15 Blood Pressure Mean 47 10/07/18 15:32 Pulse Oximetry 93 L 10/08/18 11:15 Oxygen Delivery Method Room Air 10/08/18 11:15 Oxygen Flow Rate 0 10/08/18 11:15 Pain Level 7 10/08/18 12:02 Comment 10/07/18 16:38 Intake & Output 10/07/18 10/08/18 10/08/18 23:59 11:59 23:59 Intake Total 573.334 / 614.206 2849 / 2395.417 185.417 / 2395.417 Balance 573.334 / 776.602 4492 / 2395.417 185.417 / 2395.417 Weight 80.7 kg 80.4 kg Intake: IV 333.334 / 308.533 23122009 185.417 / 2195.417 Oral 240 / 240 200 / 200 Other: Urine Appearance Clear Clear Voiding Methods Toilet Laboratory Results WBC 8.42 k/cumm (4.4-10.8) 10/08/18 07:05 RBC 3.96 m/cumm (4.00-5.20) L 10/08/18 07:05 Hgb 14.3 g/dL (12.0-15.5) 10/08/18 07:05 Hct 43.3 % (36.0-46.0) 10/08/18 07:05 MCV 109.3 fL (80-95) H D 10/08/18 07:05 MCH 36.1 pg (27.0-33.0) H 10/08/18 07:05 MCHC 33.0 g/dL (32.0-36.0) 10/08/18 07:05 RDW 16.9 % (11.7-14.6) H 10/08/18 07:05 Plt Count 320 x1000/uL (130-400) 10/08/18 07:05 MPV 9.1 fL (8.0-11.0) 10/08/18 07:05 Immature Gran % See Differential 10/07/18 13:30 79.0 10/07/18 13:30 12.0 10/07/18 13:30 Atypical Lymphs % 1 10/07/18 13:30 7.0 10/07/18 13:30 1.0 10/07/18 13:30 0.0 10/07/18 13:30 Absolute Neutrophils 8.22 k/cumm (1.2-6.7) H 10/07/18 13:30 Absolute Lymphocytes 1.35 k/cumm (1.2-3.4) 10/07/18 13:30 Absolute Monocytes 0.73 k/cumm (0.11-0.7) H 10/07/18 13:30 Absolute Eosinophils 0.10 k/cumm (0.0-0.7) 10/07/18 13:30 Absolute Basophils 0.00 k/cumm (0.0-0.2) 10/07/18 13:30 Manual differential 10/07/18 13:30 RBC Morphology See below 10/07/18 13:30 Present 10/07/18 13:30 2+ 10/07/18 13:30 2+ 10/07/18 13:30 PT 9.6 sec (9.3-11.0) 10/08/18 07:05 INR 1.0 (0.9-1.1) 10/08/18 07:05 Sodium 142 mmol/L (136-145) 10/08/18 07:05 Potassium 3.0 mmol/L (3.5-5.1) L 10/08/18 07:05 Chloride 107 mmol/L (98-107) 10/08/18 07:05 Carbon Dioxide 25.0 mmol/L (21.0-32.0) 10/08/18 07:05 10.0 mmol/L (3-11) 10/08/18 07:05 BUN 7 mg/dL (7-18) 10/08/18 07:05 0.56 mg/dL (0.55-1.02) 10/08/18 07:05 >= 60.00 (mL/min/1.73m2) 10/08/18 07:05 Glucose 89 mg/dL (70-100) 10/08/18 07:05 Calcium 7.7 mg/dL (8.5-10.1) L 10/08/18 07:05 Magnesium 2.2 mg/dL (1.8-2.4) 10/08/18 07:05 < 0.05 ng/mL (0.00-0.06) 10/08/18 07:05 NT-Pro-B Natriuret Pep 512 pg/mL (-299) H 10/07/18 17:10 243 U/L (73-393) 10/07/18 17:10 TSH 6.28 uIU/mL (0.36-3.74) H 10/08/18 07:05 Free T4 0.94 ng/dL (0.76-1.46) 10/08/18 07:05 Dark yellow (Yellow) 10/07/18 14:50 Clear (Clear) 10/07/18 14:50 7.0 (5-8) 10/07/18 14:50 Ur Specific [place] 1.015 (1.005-1.025) 10/07/18 14:50 Trace mg/dL (Negative) H 10/07/18 14:50 Trace mg/dL (Negative) H 10/07/18 14:50 Negative (Negative) 10/07/18 14:50 Negative (Negative) 10/07/18 14:50 Small (Negative) H 10/07/18 14:50 2.0 EU/dL (Up TO 0.2) H 10/07/18 14:50 Ur Leukocyte Esterase Negative (Negative) 10/07/18 14:50 0-2 (0-2) 10/07/18 14:50 0-2 HPF (0-5) 10/07/18 14:50 Ur Epithelial Cells Moderate HPF (Negative) 10/07/18 14:50 Negative HPF (Negative) 10/07/18 14:50 Few HPF (Negative) 10/07/18 14:50 Negative LPF (Negative) 10/07/18 14:50 Trace (Negative) 10/07/18 14:50 Ur Culture Indicated? No 10/07/18 14:50 Negative mg/dL (Negative) 10/07/18 14:50 Venous doppler BLE's: No evidence of deep venous thrombosis. Echo: 1. Left ventricle: The cavity size was normal. Wall thickness was normal. Systolic function was normal. The estimated ejection fraction was 60-65%. Wall motion was normal; there were no regional wall motion abnormalities. 2. Right ventricle: The cavity size was normal. Systolic function was normal. 3. Inferior vena cava: The vessel was normal in size. The respirophasic diameter changes were in the normal range (greater than or equal to 50%), consistent with normal central venous pressure.
[2018-10-08] MEDS: POTASSIUM CHLORIDE 20 MEQ/100 ML BAG 50 MEQ IVPB ×2 (13:49→17:49)
[2018-10-08] MEDS: POTASSIUM CHLORIDE/0.9% NACL 1,000 ML 125 MEQ IV ×2 (13:49→21:01)
--- NOTE | 2018-10-08 14:21 | PHARADMIT ---
Admission Pharmacy Clinical Review B PE's, pleuritic chest pain Code Status Full Code Current Weight 80.4 kg Renally Cleared and Narrow Therapeutic Index Meds ~66.45 mL/min current meds okay QTc Value / Action Taken QTc 430 BP Control, Fever BP 108/68 afebrile Electrolytes reviewed K+ 3.0 DVT Prophylaxis treatment doses of enoxaparin Opiate Usage / Scheduled Bowel Regimen Ordered prn/prn Plt/SCr for Heparin / Enoxaparin plt 320 SCr 0.56 INR for Warfarin n/a H/H stable, WBC/Bands h/h 14.3/43.3 wbc 8.42 Antibiotic appropriateness none Cultures and Sensitivities n/a Surgical ABX d/c within 24 hr n/a DM control / Insulin Dosing BG 89 none Heart Failure (Check EF%) (MARY's, B-Block, Diuretics) none IV to PO Switch n/a Home Meds Reviewed escitalopram may enhance the antiplatelet effect of ibuprofen, ibuprofen may diminish the therapeutic effect of escitalopram Home Meds Not Ordered ibuprofen Comments
[2018-10-08] MEDS: HYDROcodone 5/Acetaminophen 325 TAB PO ×2 (14:48→18:44)
[2018-10-09] VITALS (7 sets, daily range): BP systolic 107–139; BP diastolic 69–79; PULSE 72–79; RESP 16–19; TEMP 35.3–36.7; O2SAT 93–98
[2018-10-09] MEDS: HYDROcodone 5/Acetaminophen 325 TAB PO ×4 (00:09→15:13)
[2018-10-09] MEDS: Enoxaparin 40 MG/0.4 ML SYR 80 MG SC (04:12)
[2018-10-09] MEDS: POTASSIUM CHLORIDE/0.9% NACL 1,000 ML 125 MEQ IV (04:12)
[2018-10-09 06:50] LABS: Abs Immature Grans 0.03 k/cumm (0.0-0.09); Absolute Basophil Count 0.03 k/cumm (0.0-0.2); Absolute Eosinophil Count 0.32 k/cumm (0.0-0.7); Absolute Lymphocyte Count 0.99 k/cumm (1.2-3.4); Absolute Monocyte Count 0.61 k/cumm (0.11-0.7); Absolute Neutrophil Count 5.88 k/cumm (1.2-6.7); Basophils % 0.4; Eosinophils % 4.1; HCT 40.8 % (36.0-46.0); HGB 13.6 g/dL (12.0-15.5); Immature Grans % 0.4; Lymphocytes % 12.6; Mean Corp. HGB Concentration 33.3 g/dL (32.0-36.0); Mean Corpuscular Hemoglobin 35.7 pg (27.0-33.0); Mean Corpuscular Volume 107.1 fL (80-95); Mean Platelet Volume 9.2 fL (8.0-11.0); Monocytes % 7.8; Neutrophils % 74.7; Platelet Count 352 x1000/uL (130-400); RBC 3.81 m/cumm (4.00-5.20); RBC Distribution Width 16.5 % (11.7-14.6); White Blood Cell Count 7.86 k/cumm (4.4-10.8)
[2018-10-09 07:01] LABS: Anion Gap 8.1 mmol/L (3-11); BUN 5 mg/dL (7-18); CO2 22.9 mmol/L (21.0-32.0); CREATININE 0.58 mg/dL (0.55-1.02); Calcium 7.7 mg/dL (8.5-10.1); Chloride 110 mmol/L (98-107); Glucose 91 mg/dL (70-100); Magnesium 1.8 mg/dL (1.8-2.4); Sodium 141 mmol/L (136-145)
[2018-10-09 07:29] LABS: Diff Comment RBC Morph Reviewed; Macrocytosis 2+
[2018-10-09] MEDS: Escitalopram 20 MG TAB PO (07:48)
[2018-10-09] MEDS: Multivitamin TAB 1 TAB PO (07:48)
[2018-10-09] MEDS: Nicotine 14 MG/24 HR PATCH TD (07:48)
[2018-10-09] MEDS: ARIPiprazole 5 MG TAB PO (07:48)
[2018-10-09] MEDS: Thiamine 100 MG TAB PO (07:49)
[2018-10-09] MEDS: Magnesium Oxide 400 MG TAB PO (08:42)
--- NOTE | 2018-10-09 13:56 | DSE_ITS ---
Date of service: 10/09/18 Time of Service: 13:56 DS: Diagnosis Discharge Diagnosis (1) Bilateral pulmonary embolism: Status: Acute (2) Pain and swelling of left upper extremity: Status: Acute (3) Lung mass: Status: Acute (4) Alcohol abuse: Status: Chronic (5) Pleuritic chest pain: Status: Acute Discharge Plan Disposition Patient Disposition: HOME Condition: Stable Discharge Details Chief Complaint: Chest Pain Clinical Impression: Pulmonary emboli Reason For Visit: B PE'S, PLEURITIC CHEST PAIN Admit Date/Time: 10/07/18 15:39 Admit Provider: Carlyn Guerrero Attending Provider: Carlyn Guerrero Primary Care Provider: Genaro Bonilla ED Provider: Marshall Jim Hospital Course Hospital Course: Chief Complaint: Chest Pain, Dyspnea HPI: 63 year old woman admitted from [facility] Emergency Department on 10/07 with a diagnosis of lung mass and bilateral PEs. Ms. Kuhn has a Past Medical History significant for tobacco abuse, Hypothyroidism, Depression, Anxiety, and a recently treated 'pneumonia'. She reported to the ED with reported chest pain, ongoing over the past 2 days, accompanied on the morning of admission with dyspnea. She also reported a LUE swelling, ongoing since her hospitalization here in August. Work-up in the ED was significant for evidence of a RLL consolidation vs. Mass, persistent since August, a NICOLE mass, and bilateral segmental and subsegmental PE's, with right pleural effusion. She was admitted for further evaluation and treatment. Hospital Course: 1. Bilateral PE: In setting of potential malignancy. Patient has remained hemodynamically stable, with no evidence of right heart strain by CT or ECHO. Will discharge on therapeutic Lovenox, with plans for rapid follow-up with Pulmonology as outpatient for consideration of biopsy for tissue diagnosis, then oncology if appropriate. Patient has undergone lovenox injection education at time of discharge. 2. Lung Mass: Likely RLL and NICOLE masses in patient with history of tobacco use. Pulm follow-up as above. 3. Disposition: Patient remains hemodynamically stable, and has not been hypotensive for over 24 hours, and is not tachycardic. She is also not hypoxic. Her pain has improved. Plans are for discharge home with SC Enoxaparin, with rapid follow-up with Pulm at [facility] for consideration for biopsy. Home Meds and New Rx's Prescriptions: New hydrocodone-acetaminophen 5-325 mg Tablet 1 tab PO Q4H PRN PRNQty: 30 RF: 0 enoxaparin [Lovenox] 40 mg/0.4 mL Syringe 80 mg subcut Q12H Qty: 1 RF: 0 Continued escitalopram oxalate [Lexapro] 20 mg Tablet 20 mg PO DAILY RF: 0 aripiprazole [Abilify] 5 mg Tablet 5 mg PO DAILY RF: 0 multivitamin [Multiple Vitamins] Tablet 1 tab PO DAILY Qty: 30 RF: 0 thiamine mononitrate (vit B1) [Vitamin B-1 (mononitrate)] 100 mg Tablet 100 mg PO DAILY Qty: 30 RF: 0 ibuprofen 600 mg Tablet 600 mg PO Q6H PRN PRN (Reason: Pain) RF: 0 Discharge Instructions Instructions: Chest Pain (DC), Dyspnea (GEN) Stand Alone Forms: Nursing Discharge Form Referrals: PULMONOLOGY,[facility] [OTHER] - (Please call Thursday morning and schedule an appointment. ([phone]). Reason: B PE's and lung masses) Genaro Bonilla, CEMENT [facility]ON [Primary Care Provider] - (Please call the office on Thursday morning and schedule a follow up appointment to be seen within a week) Activity:: No Strenuous Activity Equipment/Supplies:: No Equipment Needed Diet:: As Tolerated Discharge Orders Discharge Orders: Discharge Order (Routine); Ordered 10/09/18 Ordered By: Baldomero Machado DS: Data Vitals/I&O Vitals and I&O: Vital Signs Temperature 36.7 C 10/09/18 11:25 Temperature Source Tympanic 10/09/18 11:25 Pulse 72 10/09/18 11:25 Pulse Rhythm Regular 10/09/18 07:36 Pulse 92 H 10/07/18 15:33 Respiratory Rate 19 10/09/18 11:25 Respiratory Effort 10/09/18 07:36 Respiratory Depth Normal 10/09/18 07:36 Respiratory Pattern Normal 10/09/18 07:36 Blood Pressure 127/79 10/09/18 11:25 Blood Pressure Mean 47 10/07/18 15:32 Pulse Oximetry 96 10/09/18 11:25 Oxygen Delivery Method Room Air 10/09/18 11:25 Oxygen Flow Rate 0 08/17/19 11:25 Pain Level 4 10/09/18 11:25 Comment 10/07/18 16:38 Intake & Output 10/08/18 10/09/18 10/09/18 23:59 11:59 23:59 Intake Total 1602.917 / 4052.917 1827.917 / 3059.584 1231.667 / 3059.584 Output Total 950 / 950 1500 / 1500 Balance 652.917 / 3102.917 327.917 / 5647.248 0749.667 / 1559.584 Weight 80.4 kg Intake: IV 1122.917 / 3132.917 897.917 / 1889.584 991.667 / 1889.584 Oral 480 / 920 930 / 1170 240 / 1170 Output: Urine 950 / 950 1500 / 1500 Other: Urine Color Light Mery Yellow Urine Appearance Clear Clear Urine Odor None Strong Comment Mixed with stool. Pt removed hat for BM; no measurement. Stool Size Moderate Stool Characteristics Formed Brown Voiding Methods Toilet Toilet Completed studies during hospitalization [Text1]: Exam(s) 02/27/[address]:CT chest PE CTA SYMPTOMS/DIAGNOSIS: PLEURITIC RIGHT-SIDED CHEST PAIN CT ANGIOGRAPHY, CHEST: CT angiography was performed with multi slice acquisition and multi planar and 3D reconstruction. CT angiography of the chest was performed with a bolus infusion of 60 cc of Omnipaque 350. Examination is compared with the previous abdominal and pelvic CT, which showed an apparent consolidative process of the posterior right lung base. This was incompletely imaged. On today's examination, again noted is apparent consolidation with a mass-like appearance of the right lung base. There is a right pleural effusion, which was not present on the previous examination. There are pulmonary emboli in segmental and subsegmental lower lobe vessels bilaterally. No central pulmonary embolus identified. Mild prominence of mediastinal lymph nodes noted with an 18 mm in diameter AP window node, 20 mm in diameter pretracheal node, and 19 mm in diameter right hilar node. The tracheobronchial tree appears intact except for narrowing of bronchi in the consolidative/mass-like area. No gross rib erosion or destruction in subjacent chest wall. Note is also made of an area of consolidative or mass-like opacity in the left upper lobe measuring about 16 mm in diameter on axial images. Images obtained through the upper abdomen show unremarkable appearance of visualized portions of the liver, spleen, pancreas, adrenals and kidneys. No supraclavicular or axillary adenopathy. Please note a T12 compression fracture is present and appears probably old, unchanged from examination of 08/2018, but not present on previous CT of 2016. CONCLUSION: Consolidative versus mass process in right lower lobe, persistent from 09/04/18. There is also a consolidative or mass-like radiodensity in left upper lobe anteriorly measuring 16 mm in diameter. The right lower lobe mass measures about 7 cm in diameter. Bilateral lower lobe segmental and subsegmental pulmonary emboli identified. New right pleural effusion noted. Exam(s) 10/07/2018 a US:US extremity venous BI SYMPTOM/DIAGNOSIS: B PE, CONCERN FOR DVT'S DUPLEX VENOUS ULTRASOUND, BOTH LOWER EXTREMITIES: 10/07 Duplex evaluation of the deep venous system was performed according to the usual protocol. The deep veins are freely compressible throughout to the level of the popliteal veins. There is normal doppler flow visible throughout and there is excellent flow augmentation with manual calf compression. CONCLUSION: No evidence of deep venous thrombosis. Exam(s) a US:US echocardiogram *[facility]* *[facility]* Date of study: 10/08/2018 Transthoracic Echocardiography M-mode, complete 2D, complete spectral Doppler, and color Doppler *STUDY CONCLUSIONS* Summary: 1. Left ventricle: The cavity size was normal. Wall thickness was normal. Systolic function was normal. The estimated ejection fraction was 60-65%. Wall motion was normal; there were no regional wall motion abnormalities. 2. Right ventricle: The cavity size was normal. Systolic function was normal. 3. Inferior vena cava: The vessel was normal in size. The respirophasic diameter changes were in the normal range (greater than or equal to 50%), consistent with normal central venous pressure. Exam(s) 10/08/2018 a US:US upper extremity venous LT SYMPTOMS/DIAGNOSIS: LUE SWELLING, ? THROMBOPHLEBITIS, CUAUHTEMOC PE'S DUPLEX VENOUS ULTRASOUND LEFT UPPER EXTREMITY: Duplex evaluation of the deep venous system of the left upper extremity was pe rformed according to the usual protocol. There is thrombus in the axillary vein, basilic vein and radial vein of the left upper extremity. Brachial veins appear free of thrombus. CONCLUSION: DVT of the left upper extremity as described above. Labs on day of discharge: Labs from last 24 hours 10/09/18 10/09/18 06:15 06:15 WBC 7.86 RBC 3.81 L Hgb 13.6 Hct 40.8 MCV 107.1 H MCH 35.7 H MCHC 33.3 RDW 16.5 H Plt Count 352 MPV 9.2 Immature Gran % 0.4 Neutrophils % 74.7 Lymphocytes % 12.6 Monocytes % 7.8 Eosinophils % 4.1 Basophils % 0.4 Absolute Neutrophils 5.88 Absolute Lymphocytes 0.99 L Absolute Monocytes 0.61 Absolute Eosinophils 0.32 Absolute Basophils 0.03 Differential Comment Rbc morph reviewed RBC Morphology See below Macrocytosis 2+ Sodium 141 Potassium 4.0 D Chloride 110 H Carbon Dioxide 22.9 Anion Gap 8.1 BUN 5 L Creatinine 0.58 Estimated GFR/1.73 m2 >= 60.00 Glucose 91 Calcium 7.7 L Magnesium 1.8 PFSH Medical History Alcohol abuse (Chronic) Anxiety (Chronic) Depression (Chronic) Hypothyroidism (Chronic) Ulcerative colitis (Chronic) Surgical History Hx of section (Chronic) Hx of colonoscopy (Chronic) Family History Father Heart disease Paternal Grandmother Cancer Maternal Grandmother Cancer Social History Smoking/Tobacco Use Status: Current every day Alcohol Intake: current Alcohol Intake frequency: a few times a week Alcohol type: beer Drug use: Socially Substance use type: former substance user and marijuana Do you feel safe at home: Yes Do you feel safe in your relationship?: Yes
--- NOTE | 2018-10-09 14:05 | PDOC.CMDIS ---
LACE Index Scoring Tool - Questions: Length of Stay (in days): 2 Acuity (Admit via E.D.?): Yes Comorbidities: Any Tumor E.D. Visits: 2 - Answers: Total Score: 9 Risk of Readmission: Low Risk Care Management Discharge Reason for Hospitalization: Bilateral Pulmonary Emboli Discharge Plan: Martina will return home and no new services are indicated at this time. She will follow up with Pulmonology and Oncology. Friend will transport when medically cleared for discharge. Patient/Family Education Needs: Discharge instructions and self administration of Lovenox.
== END 2018-10-09 15:42 | disposition home or self-care (01) ==
LOC: ER 15:40 → MS 16:13
PROVIDERS: Admitting Provider Internal Medicine; Emergency Provider Emergency Medicine; PCP Nurse Practitioner Family; Visit Provider Internal Medicine
DX: I26.99 Other pulmonary embolism without acute cor pulmonale (principal); R91.8 Other nonspecific abnormal finding of lung field; M79.89 Other specified soft tissue disorders; J90 Pleural effusion, not elsewhere classified; I82.622 Acute embolism and thrombosis of deep veins of left upper extremity; F17.210 Nicotine dependence, cigarettes, uncomplicated; F10.10 Alcohol abuse, uncomplicated; F41.8 Other specified anxiety disorders; E03.9 Hypothyroidism, unspecified; E83.42 Hypomagnesemia
CPT/HCPCS: 36415; 71275; 80048; 83690; 85027; 93005; 96372; 99223; 99232; 99238; 99285; J1650; 81003; 81015; 83735; 83880; 84439; 84443; 84484; 85025; 85610; 93010; 93306; 93970; 93971; 99217; 99220; 99225; G0378; J3480; J3490

== ENCOUNTER 2018-11-29 01:01 | Outpatient (CLI) | payer MEDICAID, SELFPAY ==
--- NOTE | 2018-11-29 11:48 | DI.MAMMO_ITS ---
EXAM: MG MAMMO SCREENING CLINICAL HISTORY: SCREENING, Z12.31 TECHNIQUE: Mammograms were interpreted according to the usual protocol including computer analysis w [employer] CAD system, tomosynthesis and C-view imaging. COMPARISON: 2010 and 2012. FINDINGS: Left breast: In the central left breast, slightly medial to the nipple, there is spiculated mass vis ualized on the tomographic images measuring roughly 1 cm in diameter. No additional masses are seen. There are no suspicious microcalcifications. Spot compression views and ultrasound are requested f or further evaluation. Right breast: No suspicious masses or suspicious microcalcifications are seen. There has been no sig nificant change. IMPRESSION: Left breast BI-RADS Cat 0 - Assessment Incomplete: Need additional imaging evaluation. Right breast category 1 no specific evidence of malignancy at this time. Routine screening examinatio ns are suggested at yearly intervals in this age group according to the ACS ACR guidelines. Breast Density - Category B - Scattered areas of fibroglandular density
== END 2018-11-29 01:21 ==
PROVIDERS: PCP Nurse Practitioner Family; Visit Provider Nurse Practitioner Family
DX: Z12.31 Encounter for screening mammogram for malignant neoplasm of breast (principal); R92.8 Other abnormal and inconclusive findings on diagnostic imaging of breast
CPT/HCPCS: 77063; 77067

== ENCOUNTER 2018-12-15 00:31 | Outpatient (CLI) | payer MEDICAID, SELFPAY ==
--- NOTE | 2018-12-15 14:43 | DI.MAMMO_ITS ---
MG MAMMO SCREEN CALL BACK UNI AND US BREAST LT LIMITED CLINICAL HISTORY: CENTRAL LT BREAST SPICULATED MASS ROUGHLY 1 CM TECHNIQUE: Additional images are interpreted according to the usual protocol including tomosynthesis and 2D imaging. Ultrasound performed using standard protocol. COMPARISON: US upper extremity venous LT from 10/08/2018 FINDINGS: The examination reveals an ovoid, somewhat lobulated area of nodularity in the 1 o'clock position 1 c m from the nipple, which measures 1.4 x 0.6 x 1.23 cm. Given this abnormality, it is highly suspiciou s for a malignancy and further assessment with a biopsy is recommended. BI-RADS Cat 4 - Suspicious Abnormality: Biopsy should be considered. Breast Density - Category B - Scattered areas of fibroglandular density.
--- NOTE | 2018-12-15 15:00 | DI.US_ITS ---
EXAM: MG MAMMO SCREEN CALL BACK UNI AND US BREAST LT LIMITED CLINICAL HISTORY: CENTRAL LT BREAST SPICULATED MASS ROUGHLY 1 CM TECHNIQUE: Additional images are interpreted according to the usual protocol including tomosynthesis and 2D imaging. Ultrasound performed using standard protocol. COMPARISON: US upper extremity venous LT from 10/08/2018 FINDINGS: The examination reveals an ovoid, somewhat lobulated area of nodularity in the 1 o'clock position 1 c m from the nipple, which measures 1.4 x 0.6 x 1.23 cm. Given this abnormality, it is highly suspiciou s for a malignancy and further assessment with a biopsy is recommended. IMPRESSION: Further assessment with a biopsy is recommended. Category 4. BI-RADS Cat 4 - Suspicious Abnormality: Biopsy should be considered Breast Density - Category B - Sca ttered areas of fibroglandular density Breast Density - Category B - Scattered areas of fibroglandular density
== END 2018-12-15 00:51 ==
PROVIDERS: PCP Nurse Practitioner Family; Visit Provider Nurse Practitioner Family
DX: Z12.31 Encounter for screening mammogram for malignant neoplasm of breast (principal); R92.8 Other abnormal and inconclusive findings on diagnostic imaging of breast; N63.21 Unspecified lump in the left breast, upper outer quadrant
CPT/HCPCS: 76642; 77063; 77067

== ENCOUNTER 2018-12-29 02:04 | Outpatient (CLI) | payer MEDICAID, SELFPAY ==
--- NOTE | 2018-12-29 12:00 | DI.US_ITS ---
EXAM: US NEEDLE LOCAL BREAST WO RAD CLINICAL HISTORY: LT BREAST MASS TECHNIQUE: Ultrasound performed using standard protocol. COMPARISON: US BREAST LT LIMITED from 12/15/2018 FINDINGS: Ultrasound guidance was provided for biopsy of left breast lesion performed by Dr. Yoo. Please s ee Dr. Yoo's procedure.
--- NOTE | 2018-12-29 13:20 | BREAST_PTH ---
PATIENT: Martina Kuhn LOC: [facility] U#:[id number] AGE/SX: 63/F ROOM: RE12/29/[address]: Lilia Yoo MD : 1955 BED: DIS: 12/29/2018 SPEC #: [id number] RECD: 12/29/18 17:32 STATUS: RAMYA REQ #: [id number] EVER: 12/29/18 13:[address]: Lilia Yoo DEPT: Surgical Specimen RECD BY: [place] ENTERED: 12/29/18 17:33 SP TYPE: Breast OTHR DR: Genaro Bonilla Tissues: 1 - BREAST BX NEEDLE Procedures: GROSS AND MICRO LEVEL 4 Comments: [id number]
--- NOTE | 2018-12-30 09:02 | ROE_ITS ---
DECEMBER 29, 2016 PREOPERATIVE DIAGNOSIS: Suspicious, abnormal mammogram, left breast. Class IV mammogram. POSTOPERATIVE DIAGNOSIS: Same. OPERATION: Ultrasound guided, core needle biopsy of left breast. PR MANAGER: Cammie Pena. ANESTHESIA: 10 cc. of 1% Lidocaine plain. ESTIMATED BLOOD LOSS: Less than 5 cc. PROCEDURE: Ms. Kuhn is a 63-year-old female with an abnormal mammogram and is here today for ultrasound guided breast biopsy. Informed consent was obtained. I explained the risks and benefits of the procedure including, but not limited to, bleeding, infection, missed lesion, need for more tissue, complications of anesthesia and other unforetold complications. The procedure was done in the ultrasound suite under ultrasound guidance. The mass was localized using ultrasound guidance. The mass is at about the 3 o'clock position in the left breast. The area was cleaned with Chlorhexidine and infiltrated with 10 cc. of 1% Lidocaine. Multiple passes with the trucut core needle biopsy are performed. Pressure is held. There is minimal bleeding noted. Titanium clip is placed in the mass and visualization is noted. Compression dressing is applied. The patient can use ice and Ibuprofen for pain. She was told not to take Tylenol, to take Ibuprofen instead. If she is on Lovenox she will hold that for another 12-hours and resume this on 12/30/18. If there is any bleeding she should hold direct pressure for 10-15 minutes. If this continues to bleed she should come into the Emergency Room. She can shower in 24-hours but no hot tubs, pools or soaking. She was given an appointment to follow-up in the office to see me next Thursday and we will go over the results. Thank-you for letting me participate in the care of this patient.
== END 2018-12-29 02:24 ==
PROVIDERS: PCP Nurse Practitioner Family; Visit Provider Surgery
DX: N60.32 Fibrosclerosis of left breast (principal); N64.2 Atrophy of breast
CPT/HCPCS: 19083; 88305; 76942

== ENCOUNTER 2019-01-04 00:32 | Outpatient (CLI) | payer OTHER, SELFPAY ==
--- NOTE | 2019-01-04 11:09 | DI.RAD_ITS ---
EXAM: XR LUMBAR SPINE AP, LAT INDICATION: BACK PAIN, DISABILITY DETERMINATION, IDENTIFIED BY PHOTO DRIVERS LICENSE. COMPARISON: LUMBAR SPINE AP, LAT from 05/14/2013 TECHNIQUE: 2D digital imaging was performed. FINDINGS: There are 5 lumbar type vertebral bodies. There is a mild left convex curvature of the lower thoraci c and lumbar spine. This may be positional. No acute fracture or subluxation is seen in the lumbar spine. The disc heights appear well maintained. There are endplate osteophytes seen at several leve ls of the lumbar spine. Degenerative changes of the facet joints are present from L3-L4 through L4-5 . Atherosclerosis. IMPRESSION: Mild degenerative changes in the lumbar spine.
== END 2019-01-04 00:52 ==
PROVIDERS: PCP Nurse Practitioner Family; Visit Provider Pediatrics Pediatric Rheumatology
DX: M54.5 Low back pain (principal); M47.816 Spondylosis without myelopathy or radiculopathy, lumbar region; Z02.71 Encounter for disability determination
CPT/HCPCS: 72100

== ENCOUNTER 2019-01-14 10:04 | Outpatient (REF) | payer MEDICAID, SELFPAY ==
[2019-01-14 12:35] LABS: Bilirubin Negative (Negative); Blood Negative (Negative); Clarity Clear (Clear); Glucose Negative (Negative); Ketones 15 mg/dL (Negative); Leukocyte Esterase Negative (Negative); Nitrite Negative (Negative); Urobilinogen 0.2 EU/dL (Up TO 0.2); pH 6.5 (5-8)
[2019-01-14 12:39] LABS: HCT 54.9 % (36.0-46.0); HGB 18.3 g/dL (12.0-15.5); Mean Corp. HGB Concentration 33.3 g/dL (32.0-36.0); Mean Corpuscular Hemoglobin 34.5 pg (27.0-33.0); Mean Corpuscular Volume 103.4 fL (80-95); Mean Platelet Volume 9.2 fL (8.0-11.0); Platelet Count 376 x1000/uL (130-400); RBC 5.31 m/cumm (4.00-5.20); RBC Distribution Width 13.6 % (11.7-14.6); White Blood Cell Count 6.96 k/cumm (4.4-10.8)
[2019-01-17 16:08] LABS: Interpretation (See Note); Tissue Transglutaminase IgA <1.2 U/mL (<4.0)
[2019-01-17 16:36] LABS: IgA 214 mg/dL (85-499)
== END 2019-01-14 10:24 ==
LOC: NCHCN 10:04
PROVIDERS: PCP Nurse Practitioner Family; Visit Provider Nurse Practitioner Family
DX: R19.7 Diarrhea, unspecified (principal); R39.15 Urgency of urination
CPT/HCPCS: 82784; 83516; 85027; 81003

== ENCOUNTER 2019-02-21 11:00 | Outpatient (REF) | payer MEDICAID, SELFPAY ==
[2019-02-21 15:32] LABS: FREE T4 0.77 ng/dL (0.76-1.46)
== END 2019-02-21 11:20 ==
LOC: NCHCN 11:00
PROVIDERS: PCP Nurse Practitioner Family; Visit Provider Nurse Practitioner Family
DX: E03.9 Hypothyroidism, unspecified (principal)
CPT/HCPCS: 84439; 84443

== ENCOUNTER 2019-04-12 20:19 | Outpatient (REF) | payer MEDICAID, SELFPAY ==
[2019-04-12 18:33] LABS: HCT 56.8 % (36.0-46.0); Mean Corp. HGB Concentration 33.5 g/dL (32.0-36.0); Mean Corpuscular Volume 104.6 fL (80-95); Mean Platelet Volume 9.2 fL (8.0-11.0); Platelet Count 274 x1000/uL (130-400); RBC 5.43 m/cumm (4.00-5.20); RBC Distribution Width 14.5 % (11.7-14.6); White Blood Cell Count 6.27 k/cumm (4.4-10.8)
[2019-04-12 18:56] LABS: Anion Gap 15.3 mmol/L (3-11); BUN 12 mg/dL (7-18); CO2 21.7 mmol/L (21.0-32.0); Calcium 9.2 mg/dL (8.5-10.1); Chloride 104 mmol/L (98-107); Glucose 101 mg/dL (74-106); Potassium 4.3 mmol/L (3.5-5.1); Sodium 141 mmol/L (136-145); TSH (W/Ref FT4) 8.68 uIU/mL (0.36-3.74)
[2019-04-12 19:13] LABS: FREE T4 0.99 ng/dL (0.76-1.46)
== END 2019-04-12 20:39 ==
LOC: NCHCN 20:19
PROVIDERS: PCP Nurse Practitioner Family; Visit Provider Nurse Practitioner Family
DX: E03.9 Hypothyroidism, unspecified (principal); E83.51 Hypocalcemia; Z51.81 Encounter for therapeutic drug level monitoring; Z87.891 Personal history of nicotine dependence
CPT/HCPCS: 80048; 85027; 84439; 84443

== ENCOUNTER 2019-07-22 02:22 | Outpatient (CLI) | payer MEDICAID, SELFPAY ==
--- NOTE | 2019-07-22 | DI.US_ITS ---
EXAM: US LOWER EXTREMITY VENOUS LT CLINICAL HISTORY: LOCALIZED SWELLING, R22.42,WARMTH LOWER LEG TECHNIQUE: Left lower extremity venous ultrasound performed using grayscale, color-flow, and spectra l Doppler analysis. COMPARISON: No exams were available for comparison FINDINGS: Thrombus is visible extending from the mid femoral vein through the popliteal vein through the proxi mal portions of the posterior tibial veins. The mid to distal posterior tibial veins appear patent. No superficial venous thrombosis or hematoma is seen. IMPRESSION: Deep venous thrombosis from the mid femoral vein through the proximal posterior tibial veins. DATA REPOSITORY:
== END 2019-07-22 02:42 ==
PROVIDERS: PCP Nurse Practitioner Family; Visit Provider Nurse Practitioner Family
DX: R22.42 Localized swelling, mass and lump, left lower limb (principal); I82.412 Acute embolism and thrombosis of left femoral vein; I82.442 Acute embolism and thrombosis of left tibial vein
CPT/HCPCS: 93971

== ENCOUNTER 2019-08-12 13:43 | Observation (INO) | payer MEDICAID, SELFPAY ==
[2019-08-12] VITALS (12 sets, daily range): BP systolic 91–111; BP diastolic 57–76; PULSE 72–85; RESP 17–26; TEMP 36.2–36.5; O2SAT 91–98
--- NOTE | 2019-08-12 13:45 | DI.CT_ITS ---
EXAM: CT CHEST PE CTA CLINICAL HISTORY: CURRENT DVT, NOW WITH SHORTNESS OF BREATH. TECHNIQUE: Imaging Protocol: Axial CT angiography was performed with multi-slice acquisition and mu lti-planar and/or 3D reconstructions. CONTRAST MATERIAL: Intravenous: Omnipaque 350 Contrast volume: 75 cc COMPARISON: CT CT CHEST PE CTA from 10/07/2018 FINDINGS: Pulmonary Arteries: A large embolus is seen in the right main pulmonary artery with extension into th e right lower lobe branches. A small filling defect is seen in the left lower lobe pulmonary artery branches. There is no evidence of right heart strain. Heart size is within normal limits. Tracheobronchial tree: Patent where visualized. Mediastinum and Eli: No dominant adenopathy or fluid collection. Pulmonary parenchyma: A small mass-like density seen in the anterior left upper lobe is no longer pre sent. There is a rounded density in the right lower lobe peripherally in the area of consolidation s een previously. There is a small rounded density in the left lower lobe measuring 13 millimeters, wh ich was not seen previously. Pleura: No effusion or pneumothorax. Aorta: Thoracic aorta non-dilated. Upper abdomen: Unremarkable. Bones: There is an old T12 compression fracture. IMPRESSION: Large embolus in the right main pulmonary artery with extension into the lower lobe branches. Small embolus in the left lower lobe. Bilateral lower rounded pulmonary densities could represent masses v ersus rounded atelectasis. RADIATION DOSE DELIVERED: 448.63mGy.cm Total DLP DATA REPOSITORY: All CT scans at this facility are submitted to the National Radiology Data Registry (NRDR) Dose Index Registry (DIR) with the [employer] (A[employer]). RADIATION OPTIMIZATION: All CT scans at this facility use at least one of these dose optimization te chniques: automated exposure control; mA and/or kV adjustment per patient size (includes targeted exa ms where dose is matched to clinical indication); or iterative reconstruction.
--- NOTE | 2019-08-12 13:57 | ED.GENADUL_ITS ---
Discharge Plan Disposition Patient Disposition: [facility] INPATIENT Condition: Stable Discharge Details Chief Complaint: SOB Clinical Impression: Shortness of breath, Bilateral pulmonary embolism Primary Care Provider: Genaro Bonilla ED Provider: Marshall Jim Home Meds and New Rx's Prescriptions: No Action escitalopram oxalate [Lexapro] 20 mg Tablet 20 mg PO DAILY RF: 0 aripiprazole [Abilify] 5 mg Tablet 5 mg PO DAILY RF: 0 ibuprofen 600 mg Tablet 600 mg PO Q6H PRN PRN (Reason: Pain) RF: 0 Xarelto 15 mg tablet 15 - 35 mg PO BID RF: 0 omeprazole 20 mg capsule,delayed release(DR/EC) 20 mg PO DAILY RF: 0 levothyroxine 50 mcg tablet 50 mcg PO DAILY RF: 0 Medical Decision Making 64 yo female with hx of PE in the past and was dx'd with dvt in left leg at end of June and has been on xarelto since comes in with worsening shortness of breath the past few weeks. Denies fevers, chills, chest pain, n/v, travel, sick contacts. On her cta last year that dx'd the PE's she had a mass that she states was evaluated at [facility] and was told it was benign. She denies missing any doses of xarelto. She arrives HD stable speaking in full sentences. Does have mild swelling of the left lower leg right leg appears normal. No redness or erythema. She does have wheezing on the right upper and lower lung tapia. No jvd or murmurs. Given her history and concern for PE with wells moderate will obtain CTA. No chest pain and ecg without acute symptoms, heart score is 3. Will send troponin. Given her exam will tx with albuterol and prednisone as she does have extensive smoking history so could be copd. labs unremarkable, remains stable, bp on my exam 110/78. CTA confirms PE, after discussion with pt and o2 saturation borderline at 92% she feels more comfortable with admission. Spoke with Leda Oropeza who agrees with admissionand will start lovenox Differential Diagnosis Differential Diagnosis: copd, asthma, PE, Pna Medical Records Medical records reviewed: Yes I reviewed the patient's medical records. Imaging Data Radiologic Study: Attestation: I personally reviewed and interpreted this imaging study as follows: Imaging: CT Scan Radiologist's impression: IMPRESSION: Large embolus in the right main pulmonary artery with extension into the lower lobe branches. Small embolus in the left lower lobe. Bilateral lower rounded pulmonary densities could represent masses versus rounded atelectasis. Lab Data Lab results reviewed: Yes I reviewed the patient's lab results. ECG Data Attestation: I personally reviewed and interpreted this ECG (s) as follows: Prior ECG tracings: not available for review Interpretation: sinus rhythm, rate of 74, qtc 46, no acute st t wave ischemic findings HPI General Mode of arrival: ambulatory . Date/Time Provider Initiated Documentation: 08/12/19 13:44 . Limitations to Documentation: no limitations . Information obtained by: patient . History of Present Illness 64 year old F presents to the emergency department with the chief complaint of shortness of breath, described as moderate, and it has been intermittent. No relieving factors improve symptom(s), No exacerbating factors reported . Patient did receive the following treatments prior to arrival, none Related Data Home Medications Medication Instructions Recorded Confirmed aripiprazole [Abilify] 5 mg PO DAILY 06/23/18 08/12/19 escitalopram oxalate [Lexapro] 20 mg PO DAILY 06/23/18 08/12/19 ibuprofen 600 mg PO Q6H PRN PRN 10/07/18 08/12/19 levothyroxine 50 mcg PO DAILY 08/12/19 08/12/19 omeprazole 20 mg PO DAILY 08/12/19 08/12/19 rivaroxaban [Xarelto] 15 - 35 mg PO BID 08/12/19 08/12/19 Allergies Allergy/AdvReac Type Severity Reaction Status Date / Time Sulfa (Sulfonamide AdvReac Intermediate headache/ Unverified 08/12/19 14:11 Antibiotics) itiching General Stated Complaint: SOB ABIODUN: 2 Review of Systems All systems reviewed & are unremarkable except as noted in HPI and below Constitutional Constitutional: Denies chills, Denies fever(s) and Denies weakness ENT Ears, Nose, Mouth, and Throat: Denies change in voice Cardiovascular Cardiovascular: Denies chest pain Respiratory Respiratory: Denies cough Gastrointestinal Gastrointestinal: Denies abdominal pain, Denies nausea and Denies vomiting Musculoskeletal Musculoskeletal: Denies joint swelling Neurologic Neurologic: Denies weakness [facility] Medical History (Updated 08/12/19 @ 15:20 by Marshall Jim MD) Abnormal mammogram (Acute) benign tissue Alcohol abuse (Chronic) Anxiety (Chronic) Depression (Chronic) Hypothyroidism (Chronic) Ulcerative colitis (Chronic) Surgical History Hx of section (Chronic) Hx of colonoscopy (Chronic) Social History Smoking/Tobacco Use Status: Current every day Alcohol Intake: current Alcohol Intake frequency: 0-2 drinks per day Alcohol type: wine Drug use: Socially Substance use type: former substance user and marijuana Details: states 2 glasses of wine daily Current gender identity: female Do you feel safe at home: Yes Do you feel safe in your relationship?: Yes Exam Const General: no acute distress Orientation: alert HENMT Head: normal to inspection Ears: external ears normal General nose exam: external nose normal Mouth: moist mucous membranes Eyes General: appearance normal, both eyes and all related structures Neck Neck: normal visual inspection Resp Effort & Inspection: normal respiratory effort and able to speak in complete sentences Cardio Rate: regular rate Skin General skin exam: no rashes or lesions noted Neuro General: patient alert and patient oriented x3 Extrem General: normal to inspection Psych Mental Status: mental status grossly normal Course Vital Signs Vital signs: Vital Signs Temperature 36.4 C L 08/12/19 13:46 Pulse 85 08/12/19 13:46 Respiratory Rate 26 H 08/12/19 13:46 Blood Pressure 111/74 08/12/19 13:46 Pulse Oximetry 93 L 08/12/19 13:46 Temperature 36.4 C L 08/12/19 13:46 Temperature Source Skin 08/12/19 13:46 Pulse 85 08/12/19 13:46 Respiratory Rate 26 H 08/12/19 13:46 Blood Pressure 111/74 08/12/19 13:46 Blood Pressure Position Sitting 08/12/19 13:46 Pulse Oximetry 93 L 08/12/19 13:46 Oxygen Delivery Method Room Air 08/12/19 13:46 Oxygen Flow Rate 0 08/12/19 13:46 Pain Level 0 08/12/19 13:46
[2019-08-12 14:04] LABS: Abs Immature Grans 0.02 k/cumm (0.0-0.09); Absolute Basophil Count 0.03 k/cumm (0.0-0.2); Absolute Eosinophil Count 0.02 k/cumm (0.0-0.7); Absolute Lymphocyte Count 1.89 k/cumm (1.2-3.4); Absolute Monocyte Count 0.39 k/cumm (0.11-0.7); Absolute Neutrophil Count 2.97 k/cumm (1.2-6.7); Basophils % 0.6; Eosinophils % 0.4; HCT 50.8 % (36.0-46.0); HGB 17.7 g/dL (12.0-15.5); Immature Grans % 0.4 %; Lymphocytes % 35.5; Mean Corp. HGB Concentration 34.8 g/dL (32.0-36.0); Mean Corpuscular Volume 103.5 fL (80-95); Monocytes % 7.3; Neutrophils % 55.8; Platelet Count 247 x1000/uL (130-400); RBC 4.91 m/cumm (4.00-5.20); White Blood Cell Count 5.32 k/cumm (4.4-10.8)
[2019-08-12 14:18] LABS: INR 1.1 (0.9-1.1); PTT Activated 22.9 sec (21.0-31.4); Prothrombin Time 10.9 sec (9.3-11.0)
[2019-08-12 14:24] LABS: ALT 107 U/L (14-59); AST 100 U/L (15-37); Albumin 3.9 g/dL (3.4-5.0); Alkaline Phosphatase 93 U/L (46-116); Anion Gap 14.2 mmol/L (3-11); BUN 8 mg/dL (7-18); Bilirubin, Total 0.8 mg/dL (0.2-1.0); CO2 24.8 mmol/L (21.0-32.0); CREATININE 0.88 mg/dL (0.55-1.02); Calcium 8.8 mg/dL (8.5-10.1); Chloride 101 mmol/L (98-107); Glucose 89 mg/dL (74-106); NT-proBNP 336 pg/mL (<300); Potassium 3.6 mmol/L (3.5-5.1); Sodium 140 mmol/L (136-145); Total Protein 7.6 g/dL (6.4-8.2)
[2019-08-12 14:25] LABS: Troponin I < 0.05 ng/mL (<0.06)
[2019-08-12] MEDS: Omnipaque 350 MG/ML 100 ML BTL IJ (14:37)
[2019-08-12] MEDS: Normal Saline Flush 10 ML SYR IVP (14:51)
[2019-08-12] MEDS: methylPREDNISolone SUCC 125 MG VIAL IVP (14:51)
[2019-08-12] MEDS: Inhaler, Assist Device 1 EACH MC (14:52)
[2019-08-12] MEDS: Albuterol HFA 8 GM 60 PUFF INH IH (14:52)
--- NOTE | 2019-08-12 15:20 | HPE_ITS ---
Date of service: 08/12/19 Time of Service: 15:20 Assessment and Plan Assessment and plan (1) Bilateral pulmonary embolism: Status: Acute Assessment and plan: was on xarelto for left lower extremity DVT since June, presents today with SOB and PE bilateral by CTA. will stop Xarelto and start lovenox 80 mg sq BID. echo when available. (2) Lung mass: Status: Acute Assessment and plan: was seen at [facility] and per patient, biopsy benign, per CT results: A small mass-like density seen in the anterior left upper lobe is no longer present. There is a rounded density in the right lower lobe peripherally in the area of consolidation seen previously. There is a small rounded density in the left lower lobe measuring 13 millimeters, which was not seen previously. will need outpatient f/u (3) Hypothyroidism: Status: Chronic Assessment and plan: TSH mar 2019 was 8.68, will add to ED labs. (4) DVT prophylaxis: Status: Acute Assessment and plan: left lower extremity DVT, will be fully anticoagulated on lovenox (5) Discharge planning issues: Status: Acute Assessment and plan: case mangement consulted for discharge planning case and plan discussed with Dr Flynn who is in agreement with plan History of Present Illness History of Present Illness Chief Complaint: shortness of breath Narrative: This is a 64-year-old female patient with a past medical history significant for lung mass bilateral pulmonary emboli anxiety hypothyroidism who presented to the emergency department today with complaints of shortness of breath. She has been fully anticoagulated on Xarelto for history of left lower extremity DVT. This was started in June 2019. A CTA does confirm a PE, she is oxygenating in the low 90s on room air there is no evidence of heart strain by CT. Emergency department provider discussed disposition with patient and due to her borderline oxygenation it was felt best that she be observed overnight on telemetry. Review of Systems Constitutional Constitutional: Denies fever(s) ENT Ears, Nose, Mouth, and Throat: Denies vertigo and Denies dizziness Cardiovascular Cardiovascular: Denies chest pain, Reports leg edema (left), Denies lightheadedness, Reports dyspnea and Reports dyspnea on exertion Respiratory Respiratory: Denies chest congestion, Denies hemoptysis, Reports dyspnea and Reports dyspnea on exertion Gastrointestinal Gastrointestinal: Denies abdominal pain Musculoskeletal Musculoskeletal: Denies back pain and Denies arthralgias Integumentary/Breasts Skin/Breast: Denies rash Neurologic Neurologic: Denies vertigo and Denies dizziness [facility] Medical History (Updated 08/13/19 @ 12:26 by Leda Oropeza NP) Abnormal mammogram (Acute) benign tissue Alcohol abuse (Chronic) Anxiety (Chronic) Depression (Chronic) Hypothyroidism (Chronic) Ulcerative colitis (Chronic) Surgical History Hx of section (Chronic) Hx of colonoscopy (Chronic) Social History Smoking/Tobacco Use Status: Current every day Alcohol Intake: current Alcohol Intake frequency: 0-2 drinks per day Alcohol type: wine Drug use: Socially Substance use type: former substance user and marijuana Details: states 2 glasses of wine daily Current gender identity: female Do you feel safe at home: Yes Do you feel safe in your relationship?: Yes Meds Home Medications and Allergies Home Medications Medication Instructions Recorded Confirmed Type aripiprazole [Abilify] 5 mg PO DAILY 06/23/18 08/12/19 History escitalopram oxalate [Lexapro] 20 mg PO DAILY 06/23/18 08/12/19 History omeprazole 20 mg PO DAILY 08/12/19 08/12/19 History enoxaparin 80 mg SUBCUT Q12H #60 ml 08/13/19 Rx levothyroxine 75 mcg PO DAILY #0 tab 08/13/19 08/12/19 Rx Allergies Allergy/AdvReac Type Severity Reaction Status Date / Time Sulfa (Sulfonamide AdvReac Intermediate headache/ Unverified 08/12/19 14:11 Antibiotics) itiching Exam Const General: cooperative, no acute distress, disheveled, frail appearing, ill appearing chronically and other (flushed) Nutritional Appearance: overweight Orientation: alert, awake and oriented x3 HENMT Head: normal to inspection, normocephalic and atraumatic Mouth: oral mucosae normal Resp Effort & Inspection: normal respiratory effort Auscultation: clear to auscultation bilaterally Cardio Rate: regular rate Rhythm: regular rhythm GI Inspection: normal to inspection Palpation: soft Auscultation: normal bowel sounds Skin General skin exam: other (flush) Neuro General: patient alert, patient awake and patient oriented x3 Cognition: normal cognition Speech: speech normal Gait: normal gait Motor: muscle tone normal throughout Extrem General: normal to inspection and full ROM Results Labs Result diagrams: 08/13/19 06:43 08/13/19 06:43 Labs: Laboratory Results - last 24 hr 08/12/19 08/12/19 08/12/19 13:55 13:55 13:55 WBC 5.32 RBC 4.91 Hgb 17.7 H Hct 50.8 H MCV 103.5 H MCH 36.0 H MCHC 34.8 RDW 17.0 H Plt Count 247 MPV 9.0 Immature Gran % 0.4 Neutrophils % 55.8 Lymphocytes % 35.5 Monocytes % 7.3 Eosinophils % 0.4 Basophils % 0.6 Absolute Neutrophils 2.97 Absolute Lymphocytes 1.89 Absolute Monocytes 0.39 Absolute Eosinophils 0.02 Absolute Basophils 0.03 PT 10.9 INR 1.1 APTT 22.9 Sodium 140 Potassium 3.6 Chloride 101 Carbon Dioxide 24.8 Anion Gap 14.2 H BUN 8 Creatinine 0.88 Estimated GFR/1.73 m2 >= 60.00 Glucose 89 Calcium 8.8 Total Bilirubin 0.8 AST 100 H ALT 107 H Alkaline Phosphatase 93 Troponin I < 0.05 NT-Pro-B Natriuret Pep 336 H Total Protein 7.6 Albumin 3.9 Last Vital Signs Temp 36.5 C 08/12/19 14:48 Pulse 72 08/12/19 15:01 Resp 24 08/12/19 14:48 BP 91/58 L 08/12/19 15:01 Pulse Ox 95 08/12/19 15:10 COVID-19 Screening In the past 14 days, have you traveled outside of [place]?: NO Had IN PERSON contact w/suspected or confirmed C-19 person: No
[2019-08-12] MEDS: Enoxaparin 80 MG/0.8 ML SYR SC (16:30)
[2019-08-12 16:31] LABS: TSH 8.95 uIU/mL (0.36-3.74)
[2019-08-13] MEDS: Enoxaparin 80 MG/0.8 ML SYR SC (03:48)
[2019-08-13] MEDS: Levothyroxine 50 MCG TAB PO (06:03)
[2019-08-13 07:15] VITALS: BP 116/81; PULSE 73; RESP 16; TEMP 36.5; O2SAT 93
[2019-08-13 07:18] LABS: Abs Immature Grans 0.01 k/cumm (0.0-0.09); Absolute Lymphocyte Count 0.64 k/cumm (1.2-3.4); Absolute Neutrophil Count 5.92 k/cumm (1.2-6.7); HCT 47.9 % (36.0-46.0); HGB 16.7 g/dL (12.0-15.5); Immature Grans % 0.1 %; Lymphocytes % 9.6; Mean Corp. HGB Concentration 34.9 g/dL (32.0-36.0); Mean Corpuscular Hemoglobin 35.9 pg (27.0-33.0); Mean Platelet Volume 9.2 fL (8.0-11.0); Monocytes % 1.5; Neutrophils % 88.8; Platelet Count 233 x1000/uL (130-400); RBC 4.65 m/cumm (4.00-5.20); RBC Distribution Width 16.8 % (11.7-14.6); White Blood Cell Count 6.67 k/cumm (4.4-10.8)
[2019-08-13 07:23] LABS: Prothrombin Time 10.4 sec (9.3-11.0)
[2019-08-13 07:39] LABS: ALT 88 U/L (14-59); AST 67 U/L (15-37); Albumin 3.2 g/dL (3.4-5.0); Alkaline Phosphatase 88 U/L (46-116); Anion Gap 11.6 mmol/L (3-11); BUN 11 mg/dL (7-18); Bilirubin, Total 0.8 mg/dL (0.2-1.0); CO2 23.4 mmol/L (21.0-32.0); Calcium 8.7 mg/dL (8.5-10.1); Chloride 103 mmol/L (98-107); Glucose 145 mg/dL (74-106); Potassium 3.8 mmol/L (3.5-5.1); Sodium 138 mmol/L (136-145); Total Protein 6.5 g/dL (6.4-8.2)
[2019-08-13 07:40] VITALS: O2SAT 97
[2019-08-13] MEDS: Escitalopram 20 MG TAB PO (07:44)
[2019-08-13] MEDS: ARIPiprazole 5 MG TAB PO (07:44)
[2019-08-13] MEDS: Omeprazole 20 MG CAPCR PO (07:44)
[2019-08-13 07:52] VITALS: O2SAT 98
[2019-08-13 10:38] VITALS: PULSE 72; PULSE 75; PULSE 90; RESP 16; RESP 18; O2SAT 92; O2SAT 96; O2SAT 98
--- NOTE | 2019-08-13 10:53 | PDOC.CMIN ---
- If Service Date Differs Date of service: 08/13/19 Time of Service: 10:53 Care Management Initial Assess REASON FOR HOSPITALIZATION:: Pulmonary embolism PAST MEDICAL HISTORY/PAST SURGICAL HISTORY:: Medical History: Abnormal mammogram - benign tissue, Alcohol abuse, Anxiety, Depression, Hypothyroidism, and Ulcerative colitis. Surgical History: Hx of section and Hx of colonoscopy. PREVIOUS FUNCTIONAL STATUS/SOCIAL/FAMILY SUPPORTS:: Martina lives alone in an apartment in [place], [place]. She has 2 adult sons; one who lives nearby in [place] and another one in [place]. Martina reports she is currently retired, but previously worked at a variety of jobs. Martina does not drive, but she is independent with her ADLs at baseline. CURRENT FUNCTIONAL STATUS:: Martina is lying in bed watching television when CM comes to meet with her. She is pleasant and easily engages in conversation. She expresses concerns over the blood clot in her lung and says she is worried her covid test will be positive, despite absence of symptoms. We discuss that her shortness of breath is likely due to the blood clot and not related to the coronavirus. CM will continue to follow. ADVANCE DIRECTIVES:: None on file at [facility]. Has patient been provided with info about the portal/API?: Yes Did the patient sign up for the portal?: No CODE STATUS:: Full Code INSURANCE COVERAGE / FINANCIAL ISSUES:: Medicaid. CURRENT HOME/COMMUNITY SERVICES/EQUIPMENT:: Martina denies current services or equipment. PRIMARY CARE PHYSICIAN:: SALLY Warren ([facility]) POTENTIAL DISCHARGE NEEDS:: Follow up appointment with PCP and with [facility] hematology. PATIENT/FAMILY EDUCATION NEEDS:: Discharge instructions, limitations, follow up plan of care, including Ask Me Three and self-management. ANTICIPATED BARRIERS TO DISCHARGE:: No anticipated barriers at this time. TRANSPORTATION:: Via [facility] to be coordinated by CM when ready. PLAN:: Martina will discharge home with no new services when medically cleared by provider. She will follow up with her PCP, [facility] hematology, and plan of care as directed. Martina will be transported home via [facility] coordinated by CM when ready. CM will continue to follow.
--- NOTE | 2019-08-13 11:48 | W.PM.DS.N ---
Date of service: 08/13/19 Time of Service: 12:26 DS: Diagnosis Discharge Diagnosis (1) Bilateral pulmonary embolism: Status: Acute Asessment and Plan: was on xarelto for past month for left lower extremity DVT and now has bilateral PE, with sob. referral to hematology (2) Lung mass: Status: Acute Asessment and Plan: followed by [facility] pulmonology (3) Hypothyroidism: Status: Chronic Asessment and Plan: TSH remains at 8.95 and has been elevated at 9-8 since jan 2019, will increase dose to 75 mcg and recheck in 6 weeks (4) Polycythemia: Status: Acute Asessment and Plan: referral to hematology, patient quit smoking one year ago, had history of ETOH abuse, H&H elevated since Dec 2018. appears euvolemic with no evidence of dehydration currently. will send serum epo and obtain UA prior to discharge. Discharge Plan Disposition Patient Disposition: HOME Condition: Stable Discharge Details Chief Complaint: SOB Clinical Impression: Shortness of breath, Bilateral pulmonary embolism Reason For Visit: PULMONARY EMBOLISM Admit Date/Time: 08/12/19 15:17 Admit Provider: George Jeronimo Attending Provider: George Jeronimo Primary Care Provider: Genaro Bonilla ED Provider: Marshall Jim Hospital Course Hospital Course: This is a 64-year-old female with a past medical history significant for hypothyroidism pulmonary embolism left lower extremity DVT lung mass anxiety depression and alcohol abuse who presented to the emergency department yesterday for complaints of shortness of breath. She has been taking Xarelto for a left lower extremity DVT since June 2019. She reports that she has not missed any of her Xarelto doses. She was also treated a year ago for a pulmonary embolism with Lovenox for 6 months. There was no source found for her pulmonary embolism she did however have a breast mass that was followed by surgery here and was biopsied as benign at the same time she was also found to have a lung mass and received follow-up with pulmonary at [facility] and was told that was benign as well. Her evaluation in the emergency department did show Large embolus in the right main pulmonary artery with extension into the lower lobe branches. Small embolus in the left lower lobe. Bilateral lower rounded pulmonary densities could represent masses versus rounded atelectasis. A small mass-like density seen in the anterior left upper lobe is no longer present. There is a rounded density in the right lower lobe peripherally in the area of consolidation seen previously. There is a small rounded density in the left lower lobe measuring 13 millimeters, which was not seen previously. She was also noted to have elevated hemoglobin hematocrit MCV MCVH and RDW which has been elevated since December 2018. She does not appear dehydrated with a BUN of 11 creatinine of 0.5 and reports that her p.o. intake has been good. I did add a urinalysis and a serum EPO which will not be available prior to discharge.She was started on Lovenox 1 mg/kg twice daily she is oxygenating well on room air with a sat in the mid 90s. And ambulatory pulse oximetry challenge showed no evidence of hypoxia with ambulation. She is safe for discharge to home she will follow-up with her primary care provider and a referral will be placed with hematology. echo was not available while hospitalized so an outpatient referral will be placed also. case and plan of care discussed with Dr Guerrero who is in agreement Home Meds and New Rx's Prescriptions: New enoxaparin 80 mg/0.8 mL Syringe 80 mg subcut Q12H Qty: 60 RF: 0 Continued escitalopram oxalate [Lexapro] 20 mg Tablet 20 mg PO DAILY RF: 0 aripiprazole [Abilify] 5 mg Tablet 5 mg PO DAILY RF: 0 omeprazole 20 mg capsule,delayed release(DR/EC) 20 mg PO DAILY RF: 0 Changed levothyroxine 50 mcg tablet 75 mcg PO DAILY Qty: 0 RF: 0 Discontinued ibuprofen 600 mg Tablet 600 mg PO Q6H PRN PRN (Reason: Pain) RF: 0 Xarelto 15 mg tablet 15 - 35 mg PO BID RF: 0 Discharge Instructions Instructions: Pulmonary Embolism (DC) Additional Instructions: continue lovenox 2 times daily Stand Alone Forms: Nursing Discharge Form Referrals: Cindy Montgomery [ NON-[facility] STAFF PHYSICIAN] - (hematology. The office will call you with an appointment) Genaro Bonilla NP [Primary Care Provider] - (Please call the office on Thursday morning to schedule an appointment to be seen within a week) Activity:: Activity as Tolerated Equipment/Supplies:: No Equipment Needed Diet:: As Tolerated Discharge Orders Discharge Orders: Discharge Order (Routine); Ordered 08/13/19 Ordered By: Leda Oropeza Other Ambulatory Orders: US echocardiogram (Routine) Location: None Selected Ordered By: Leda Oropeza Discharge Data Discharge Date/Time-TO BE ENTERED AT DEPARTURE: 08/13/19 14:35 DS: Summary Status at Discharge Functional status at discharge: independent ambulation Overall status at discharge: patient is progressing back to baseline Mental Status: mental status grossly normal Speech and Movement: speech and movement normal Mood: congruent mood Affect: normal affect Exam Const General: cooperative, no acute distress, disheveled, frail appearing, ill appearing chronically and other (flushed) Nutritional Appearance: overweight Orientation: alert, awake and oriented x3 HENMT Head: normal to inspection, normocephalic and atraumatic Mouth: oral mucosae normal Resp Effort & Inspection: normal respiratory effort Auscultation: clear to auscultation bilaterally Cardio Rate: regular rate Rhythm: regular rhythm GI Inspection: normal to inspection Palpation: soft Auscultation: normal bowel sounds Skin General skin exam: other (flush) Neuro General: patient alert, patient awake and patient oriented x3 Cognition: normal cognition Speech: speech normal Gait: normal gait Motor: muscle tone normal throughout Extrem General: normal to inspection and full ROM Psych Mental Status: mental status grossly normal Speech and Movement: speech and movement normal Mood: congruent mood Affect: normal affect DS: Data Vitals/I&O Vitals and I&O: Vital Signs Temperature 36.5 C 08/13/19 07:15 Temperature Source Tympanic 08/13/19 07:15 Pulse 73 08/13/19 07:15 Pulse Rhythm Regular 08/13/19 07:40 Respiratory Rate 16 08/13/19 07:15 Respiratory Effort 08/13/19 07:40 Respiratory Depth Normal 08/13/19 07:40 Respiratory Pattern Normal 08/13/19 07:40 Blood Pressure 116/81 08/13/19 07:15 Blood Pressure Mean 66 08/12/19 15:01 Blood Pressure Position Sitting 08/12/19 13:46 Pulse Oximetry 98 08/13/19 07:52 Oxygen Delivery Method Room Air 08/13/19 07:52 Oxygen Flow Rate 0 08/13/19 07:52 Pain Level 0 08/13/19 07:15 Comment 08/12/19 23:30 Intake & Output 08/12/19 08/12/19 08/13/19 11:59 23:59 11:59 Intake Total 200 / 200 550 / 550 Balance 200 / 200 550 / 550 Weight 81.647 kg Intake: Oral 200 / 200 550 / 550 Other: Urine Color Yellow Urine Appearance Clear Clear Stool Size Moderate Stool Characteristics Formed Voiding Methods Toilet Data Completed and Pending Labs on day of discharge: Labs from last 24 hours 08/13/19 08/13/19 08/13/19 06:43 06:43 06:43 WBC 6.67 RBC 4.65 Hgb 16.7 H Hct 47.9 H MCV 103.0 H MCH 35.9 H MCHC 34.9 RDW 16.8 H Plt Count 233 MPV 9.2 Immature Gran % 0.1 Neutrophils % 88.8 Lymphocytes % 9.6 Monocytes % 1.5 Eosinophils % 0.0 Basophils % 0.0 Absolute Neutrophils 5.92 Absolute Lymphocytes 0.64 L Absolute Monocytes 0.10 L Absolute Eosinophils 0.00 Absolute Basophils 0.00 PT 10.4 INR 1.0 APTT Sodium 138 Potassium 3.8 Chloride 103 Carbon Dioxide 23.4 Anion Gap 11.6 H BUN 11 Creatinine 0.90 Estimated GFR/1.73 m2 >= 60.00 Glucose 145 H Calcium 8.7 Total Bilirubin 0.8 AST 67 H ALT 88 H Alkaline Phosphatase 88 Troponin I NT-Pro-B Natriuret Pep Total Protein 6.5 Albumin 3.2 L TSH COVID-19 PCR Nasopharyn COVID-19 PCR Ref Test Perform Site 08/12/19 08/12/19 08/12/19 15:20 13:55 13:55 WBC RBC Hgb Hct MCV MCH MCHC RDW Plt Count MPV Immature Gran % Neutrophils % Lymphocytes % Monocytes % Eosinophils % Basophils % Absolute Neutrophils Absolute Lymphocytes Absolute Monocytes Absolute Eosinophils Absolute Basophils PT 10.9 INR 1.1 APTT 22.9 Sodium Potassium Chloride Carbon Dioxide Anion Gap BUN Creatinine Estimated GFR/1.73 m2 Glucose Calcium Total Bilirubin AST ALT Alkaline Phosphatase Troponin I NT-Pro-B Natriuret Pep Total Protein Albumin TSH 8.95 H COVID-19 PCR Pending Nasopharyn COVID-19 PCR Pending Ref Test Perform Site Pending 08/12/19 08/12/19 13:55 13:55 WBC 5.32 RBC 4.91 Hgb 17.7 H Hct 50.8 H MCV 103.5 H MCH 36.0 H MCHC 34.8 RDW 17.0 H Plt Count 247 MPV 9.0 Immature Gran % 0.4 Neutrophils % 55.8 Lymphocytes % 35.5 Monocytes % 7.3 Eosinophils % 0.4 Basophils % 0.6 Absolute Neutrophils 2.97 Absolute Lymphocytes 1.89 Absolute Monocytes 0.39 Absolute Eosinophils 0.02 Absolute Basophils 0.03 PT INR APTT Sodium 140 Potassium 3.6 Chloride 101 Carbon Dioxide 24.8 Anion Gap 14.2 H BUN 8 Creatinine 0.88 Estimated GFR/1.73 m2 >= 60.00 Glucose 89 Calcium 8.8 Total Bilirubin 0.8 AST 100 H ALT 107 H Alkaline Phosphatase 93 Troponin I < 0.05 NT-Pro-B Natriuret Pep 336 H Total Protein 7.6 Albumin 3.9 TSH COVID-19 PCR Nasopharyn COVID-19 PCR Ref Test Perform Site [facility] Medical History (Updated 08/13/19 @ 12:26 by Leda Oropeza NP) Abnormal mammogram (Acute) benign tissue Alcohol abuse (Chronic) Anxiety (Chronic) Depression (Chronic) Hypothyroidism (Chronic) Ulcerative colitis (Chronic) Surgical History Hx of section (Chronic) Hx of colonoscopy (Chronic) Social History Smoking/Tobacco Use Status: Current every day Alcohol Intake: current Alcohol Intake frequency: 0-2 drinks per day Alcohol type: wine Drug use: Socially Substance use type: former substance user and marijuana Details: states 2 glasses of wine daily Current gender identity: female Do you feel safe at home: Yes Do you feel safe in your relationship?: Yes
--- NOTE | 2019-08-13 13:05 | PDOC.CMDIS ---
- If Service Date Differs Date of service: 08/13/19 Time of Service: 13:05 LACE Index Scoring Tool - Questions: Length of Stay (in days): 1 Acuity (Admit via E.D.?): Yes E.D. Visits: 4 - Answers: Total Score: 8 Risk of Readmission: Low Risk Care Management Discharge Reason for Hospitalization: Pulmonary embolism Discharge Plan: Martina is discharging home. She will follow up with her PCP and [facility] Hematology as directed. Patient/Family Education Needs: Nursing will review discharge instructions with Martina re medications, limitations, and follow up plan of care. Martina is able to verbalize reason for hospitalization and how to manage care at home.
[2019-08-13 14:00] LABS: COVID-19 RT-PCR UVMMC Result Negative (Negative)
[2019-08-13 15:26] VITALS: PULSE 80
[2019-08-16 11:28] LABS: Erythropoietin 2.1 mIU/mL (2.6 - 18.5)
== END 2019-08-13 14:35 | disposition home or self-care (01) ==
LOC: ER 15:20 → MS 15:49
PROVIDERS: Nurse Practitioner Acute Care; Admitting Provider Internal Medicine; Emergency Provider Emergency Medicine; PCP Nurse Practitioner Family; Visit Provider Internal Medicine
DX: I26.99 Other pulmonary embolism without acute cor pulmonale (principal); I82.402 Acute embolism and thrombosis of unspecified deep veins of left lower extremity; F10.10 Alcohol abuse, uncomplicated; D75.1 Secondary polycythemia; F41.9 Anxiety disorder, unspecified; F32.9 Major depressive disorder, single episode, unspecified; E03.9 Hypothyroidism, unspecified; Z11.59 Encounter for screening for other viral diseases; K51.90 Ulcerative colitis, unspecified, without complications; Z79.01 Long term (current) use of anticoagulants; R91.8 Other nonspecific abnormal finding of lung field; F17.210 Nicotine dependence, cigarettes, uncomplicated
CPT/HCPCS: 36415; 71275; 80053; 82668; 93005; 94618; 94640; 96372; 96374; 99217; 99219; 99285; U0003; 83880; 84443; 84484; 85025; 85610; 85730; 93010; G0378; J1650; J2930; J3490

== ENCOUNTER 2019-08-30 00:44 | Outpatient (CLI) | payer MEDICAID, SELFPAY ==
--- NOTE | 2019-08-30 | DI.US_ITS ---
APPROVED REPORT EXAM: Comprehensive 2D, Doppler, and color-flow Echocardiogram Patient Location: Out-Patient Analog Device Designer: Annalisa Kenny RDCS (AE) Indications: Pulmonary Embolism Other Information Study Quality: Adequate Conclusion Normal left ventricular wall thickness and chamber size. Estimated ejection fraction is 55 to 60%. There are no segmental wall motion abnormalities There is no chamber enlargement Right ventricular size and systolic function is normal There is no structural valvular disease Trace to mild mitral and tricuspid regurgitation Estimated right ventricular systolic pressure is normal at 27 mmHg Wall motion Left Ventricle The left ventricle is normal size. The left ventricular systolic function is normal. The left ventric ular ejection fraction is within the normal range. There is normal left ventricular wall thickness. T here is normal LV segmental wall motion. There is no ventricular septal defect visualized. LVEF is 55 %-60%. Right Ventricle The right ventricle is normal size. The right ventricular systolic function is normal. Atria The left atrium size is normal. The right atrium size is normal. The interatrial septum is intact wit h no evidence for an atrial septal defect. Aortic Valve Aortic valve is trileaflet. There is no aortic valvular stenosis. No aortic regurgitation is present. Mitral Valve The mitral valve is normal in structure. No evidence of mitral valve stenosis. Trace to mild mitral r egurgitation. Tricuspid Valve The tricuspid valve is normal in structure. There is no tricuspid valve stenosis. Trace to mild tricu spid regurgitation. Pulmonic Valve The pulmonary valve is normal in structure. There is no pulmonic valvular stenosis. There is no pulmo dhruv valvular regurgitation. Great Vessels The aortic root is normal in size. The ascending aorta is mildly dilated. Aortic arch is normal in ca liber. IVC is normal in size and collapses >50% with inspiration. Pericardium There is no pericardial effusion. 2D Dimensions IVSD d PLAX 0.63 cm F: 0.6-1.0 LV Vol A2C d MOD 65.2 mL LVPW d PLAX 0.68 cm F: 0.6 - 1.0 LV Vol A4C d MOD 63.9 mL LVID d PLAX 4.81 cm F: 3.8 - 5.2 LA vol/ BSA A2C s A-L 11.6 mL/m2 LVDs 3.40 cm F: 2.2 - 3.5 LA vol/ BSA A4C s A-L 16.5 mL/m2 Ao Root d 2.56 cm F: 2.7 - 3.3 LA Vol/ BSA Biplane s A-L 15.9 mL/m2 RA Area A4C 12.56 cm2 LA Area A4C s MOD 13.54 cm2 RA Vol/ BSA A4C s A-L 14.5 mL/m2 LA Area A2C s MOD 9.91 cm2 Ao Asc Diam d 3.31 cm F: 2.3 - 3.1 LV EF A4C MOD 55.8 % LV EF Teichholz 55.7 % LV EF A2C MOD 56.3 % LVEF (Hill's) 54.66 % F: 54 - 74 LV EF Biplane MOD 54.7 % LV Volume 50.88 mL F: 46 - 106 SV 36.39 mL LV Volume Index 26.92 mL/m2 F: 29 - 61 SV Index 19.24 mL/m2 LV Vol Biplane MOD 66.6 mL FS 29.05 % M-Mode TAPSE 1.51 cm (M/F) >1.7 LV Diastology MV E' medial 0.061 (>0.07 m/s) E/A Ratio 1.0 LV E/e MED 9.55 (<14) MV E Vmax 0.58 (0.4-1.3 m/s) MV E' lateral 0.063 (>0.1 m/s) MV A Vmax 0.60 (0.4-1.3 m/s) LV E/e LAT 9.30 (<14) MV E/A Ratio 0.95 MV E/E' medial 9.56 MV E/E' lateral 9.31 Aortic Valve LVOT Area 2.72 cm2 AoV Area Vmax 2.36 cm2 LVOT Vmax 1.08 m/s AoV Area/ BSA (Vmax) 1.25 cm2/m2 LVOT Mean Teddy. 0.67 m/s GARY Mean Teddy. 2.34 cm2 LVOT Peak Grad 4.6 mmHg GARY Mean Teddy. Index 1.24 cm2/m2 LVOT Mean Grad 2.1 mmHg LVOT VTI 0.205 m LVOT Diam s 1.85 cm AoV Vmax 1.24 m/s Velocity Ratio 0.87 AoV Mean Teddy. 0.77 m/s AoV Peak Grad 6.2 mmHg LVOT SV 55.64 mL AoV Mean Grad 2.8 mmHg AoV VTI 0.241 m AoV Area VTI 2.31 cm2 AoV Area/ BSA (VTI) 1.22 cm/m2 Mitral Valve MV DT 186 (160-240 msec) MV PHT 54 msec MV Area PHT 4.07 cm2 Pulmonary Valve PV Vmax 0.79 (0.5-1.5 m/s) RVOT Peak Gr. 1.79 mmHg PV Peak Grad 2.5 mmHg RVOT Mean Gr. 0.90 mmHg PV Mean Grad 1.3 mmHg RVOT VTI 0.152 m PV VTI 0.163 m RVOT Vmax 0.67 m/s Tricuspid Valve TR Peak Grad 24.2 mmHg TR Vmax 2.46 m/s RA Pressure 3.00 mmHg RVSP (TR) 27.2 mmHg
== END 2019-08-30 01:04 ==
PROVIDERS: PCP Nurse Practitioner Family; Visit Provider Nurse Practitioner Family
DX: I26.99 Other pulmonary embolism without acute cor pulmonale (principal); I34.0 Nonrheumatic mitral (valve) insufficiency; I37.1 Nonrheumatic pulmonary valve insufficiency; Z79.01 Long term (current) use of anticoagulants
CPT/HCPCS: 93306

== ENCOUNTER 2019-09-01 16:27 | Emergency (ER) | payer MEDICAID, SELFPAY ==
[2019-09-01 16:31] VITALS: BP 105/73; PULSE 76; RESP 19; TEMP 36.7; O2SAT 95
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
[2019-09-01] MEDS: Lactated Ringers 1,000 ML 1000 ML IV (17:02)
[2019-09-01] MEDS: Tranexamic Acid 1,000 MG/10 ML VIAL 500 MG NS (17:02)
[2019-09-01] MEDS: Cellulose,Oxidized 2X3 PKT 1 EACH MC (17:03)
[2019-09-01 17:04] LABS: Abs Immature Grans 0.02 k/cumm (0.0-0.09); Absolute Basophil Count 0.02 k/cumm (0.0-0.2); Absolute Eosinophil Count 0.04 k/cumm (0.0-0.7); Absolute Lymphocyte Count 1.79 k/cumm (1.2-3.4); Absolute Monocyte Count 0.36 k/cumm (0.11-0.7); Absolute Neutrophil Count 3.48 k/cumm (1.2-6.7); Basophils % 0.4; Eosinophils % 0.7; HGB 16.4 g/dL (12.0-15.5); Immature Grans % 0.4 %; Lymphocytes % 31.3; Mean Corp. HGB Concentration 34.9 g/dL (32.0-36.0); Mean Corpuscular Hemoglobin 37.8 pg (27.0-33.0); Mean Corpuscular Volume 108.3 fL (80-95); Mean Platelet Volume 8.9 fL (8.0-11.0); Monocytes % 6.3; Neutrophils % 60.9; Platelet Count 297 x1000/uL (130-400); RBC 4.34 m/cumm (4.00-5.20); RBC Distribution Width 17.6 % (11.7-14.6); White Blood Cell Count 5.71 k/cumm (4.4-10.8)
[2019-09-01 17:11] LABS: Anion Gap 14.2 mmol/L (3-11); BUN 12 mg/dL (7-18); CO2 22.8 mmol/L (21.0-32.0); Calcium 8.9 mg/dL (8.5-10.1); Chloride 101 mmol/L (98-107); Glucose 91 mg/dL (74-106); Potassium 3.6 mmol/L (3.5-5.1); Sodium 138 mmol/L (136-145)
[2019-09-01 17:14] LABS: Prothrombin Time 9.9 sec (9.3-11.0)
[2019-09-01 17:42] VITALS: BP 115/83; PULSE 86; RESP 14; TEMP 36.3; O2SAT 95
== END 2019-09-01 17:48 | disposition home or self-care (01) ==
PROVIDERS: Emergency Provider Registered Nurse Emergency; PCP Nurse Practitioner Family
DX: S61.512A Laceration without foreign body of left wrist, initial encounter (principal); V18.0XXA Pedal cycle driver injured in noncollision transport accident in nontraffic accident, initial encounter; Y93.55 Activity, bike riding; R42 Dizziness and giddiness; Z79.01 Long term (current) use of anticoagulants; Z86.711 Personal history of pulmonary embolism
CPT/HCPCS: 80048; 96360; 99284; 85025; 85610; 99283

== ENCOUNTER 2019-09-21 18:07 | Inpatient (IN) | payer MEDICAID, SELFPAY ==
[2019-09-21] VITALS (19 sets, daily range): BP systolic 99–146; BP diastolic 46–78; PULSE 68–83; RESP 18–34; TEMP 36.5–36.6; O2SAT 92–99
--- NOTE | 2019-09-21 18:00 | RT.EKG_ITS ---
APPROVED REPORT Exam: Resting ECG Patient Location: E HR:83 bpm ECG Measurements Heart Rate 83 AXIS MT 138 P 34 QRSd 73 QRS 33 QT 404 T 24 QTc 475 <Conclusion> Sinus rhythm...normal P axis, V-rate 60- 99 Nonspecific T abnormalities, anterior leads...T <-0.10mV, V2-V4 EKG shows sinus rhythm at 83, normal axis, nonspecific ST changes, nondiagnostic EKG
--- NOTE | 2019-09-21 18:28 | W.ED.GENAD ---
Discharge Plan Disposition Condition: Improving Discharge Details Chief Complaint: Chest Pain Admit Date/Time: 09/21/19 22:00 Admit Provider: Marshall Rose Attending Provider: Marshall Rose Primary Care Provider: Genaro Bonilla ED Provider: Elana Mcdowell Discharge Instructions Activity:: Activity as Tolerated Equipment/Supplies:: No Equipment Needed Diet:: As Tolerated Discharge Orders Discharge Orders: Discharge Order (Routine); Ordered 09/23/19 Ordered By: Brittnee Sands Discharge Data Discharge Date/Time-TO BE ENTERED AT DEPARTURE: 09/21/19 22:45 Medical Decision Making Martina Kuhn is a 64-year-old woman with a history of multiple pulmonary embolisms, hypertension, heavy alcohol use presenting to the emergency department with shortness of breath over the past week and decreased appetite with generalized weakness over the past 3 days. On exam patient is appears acutely nontoxic, is mildly tachypneic with clear lungs. Benign abdominal exam. Concern for worsening clot burden, CHF, acute coronary syndrome, pneumonia, COVID, metabolic/electrolyte derangement, other. Exam/history at this time is not consistent with sepsis, acute aortic pathology. Plan for EKG, CT chest, screening labs, telemetry, IV fluid. Will monitor and reassess. Labs reviewed, multiple significant lab abnormalities including lactate 4.7, anion gap 20, elevated LFTs, TSH 19. Unclear etiology of metabolic acidosis/lactic acidosis. Patient reports that she drinks 2 glasses of wine per day. She denies any other alcohol use including methanol, rubbing alcohol, other ingestions. 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 Patient reports she feels somewhat improved, shortness of breath feels better. CT shows no worsening of clot burden. Respiratory rate 24. We will continue IV fluid hydration. Plan for admission for further evaluation and treatment. Clinical Impression: SOB, metabolic acidosis Disposition: [facility] in Medical Records Medical records reviewed: Yes I reviewed the patient's medical records. Imaging Data Radiologic Study: Attestation: I personally reviewed and interpreted this imaging study as follows: Radiologist's impression: EXAM: CT CHEST PE CTA CLINICAL HISTORY: SOB, h/o PE. TECHNIQUE: Imaging Protocol: Axial CT angiography was performed with multi-slice acquisition and multi-planar and/or 3D reconstructions. CONTRAST MATERIAL: Intravenous: Omnipaque 350 Contrast volume:72 ml COMPARISON: CT CT CHEST PE CTA from 08/12/2019 FINDINGS: Pulmonary Arteries: There has been significant interval decrease in in previously noted pulmonary emboli. There is a small amount of residual thrombus in the right lower lobe branch. No left-sided emboli are seen. Tracheobronchial tree: Patent where visualized. Mediastinum and Eli: No dominant adenopathy or fluid collection. Pulmonary parenchyma: The area of rounded density previously seen in the right lower lobe is decreased in size. The area of nodularity at the left lung base also decreased in size. The findings may represent interval improvement in pulmonary infarcts. No new infiltrates are seen. Pleura: No effusion or pneumothorax. Heart: The heart is not dilated. No coronary artery calcifications are seen. Aorta: Thoracic aorta non-dilated. Upper abdomen: Fatty liver.. Bones: Old T12 compression fracture. IMPRESSION: Interval improvement in pulmonary emboli with a small amount of residual thrombus in the right lower lobe branch. Improvement in bilateral pulmonary opacities. No new abnormalities are seen. Lab Data Lab results reviewed: Yes I reviewed the patient's lab results. Labs: 09/21/19 19:07 Blood Blood Culture - Pending 09/21/19 19:15 Blood Blood Culture - Pending Laboratory Tests Range/Units 09/21/19 09/21/19 09/21/19 18:48 18:48 18:48 WBC (4.4-10.8) 10^3/uL 6.05 RBC (3.93-5.22) 10^6/uL 4.44 Hgb (11.2-15.7) g/dL 17.4 H Hct (36.0-46.0) % 48.9 H MCV (80-95) fL 110.1 H MCH (27.0-33.0) pg 39.2 H MCHC (32.0-36.0) % 35.6 RDW (11.7-14.6) % 15.7 H Plt Count (130-400) 10^3/uL 270 MPV (8.0-11.0) fL 8.9 Immature Gran % 0.5 Neutrophils % 56.7 Lymphocytes % 34.7 Monocytes % 7.1 Eosinophils % 0.5 Basophils % 0.5 Absolute Neutrophils (1.2-6.7) 10^3/uL 3.43 Absolute Lymphocytes (1.2-3.4) 10^3/uL 2.10 Absolute Monocytes (0.1-0.8) 10^3/uL 0.43 Absolute Eosinophils (0.0-0.7) 10^3/uL 0.03 Absolute Basophils (0.0-0.2) 10^3/uL 0.03 RBC Morphology See below Polychromasia Present Macrocytosis 2+ PT (9.3-11.0) sec 10.2 INR (0.9-1.1) 1.0 APTT (21.0-31.4) sec 24.5 VBG pH (7.35-7.45) VBG pCO2 (34-47) mm/Hg VBG pO2 (28-44) mm/Hg VBG HCO3 (22-28) mmol/L VBG Total CO2 (22-29) mmol/L VBG O2 Saturation (70-80) % VBG Base Excess (-3-3) mmol/L Sodium (136-145) mmol/L 137 Potassium (3.5-5.1) mmol/L 3.3 L Chloride (98-107) mmol/L 99 Carbon Dioxide (21.0-32.0) mmol/L 16.9 L Anion Gap (3-11) mmol/L 21.1 H BUN (7-18) mg/dL 7 Creatinine (0.55-1.02) mg/dL 0.91 Estimated GFR/1.73 m2 (mL/min/1.73m2) >= 60.00 Glucose (74-106) mg/dL 94 Lactate (0.6-1.4) mmol/L Calcium (8.5-10.1) mg/dL 9.3 Magnesium (1.8-2.4) mg/dL 1.9 Total Bilirubin (0.2-1.0) mg/dL 0.6 AST (15-37) U/L 157 H ALT (14-59) U/L 200 H Alkaline Phosphatase (46-116) U/L 99 Troponin I (<0.06) ng/mL < 0.05 NT-Pro-B Natriuret Pep (<300) pg/mL 178 Total Protein (6.4-8.2) g/dL 7.5 Albumin (3.4-5.0) g/dL 3.9 TSH (0.36-3.74) uIU/mL Free T4 (0.76-1.46) ng/dL Range/Units 09/21/19 09/21/19 09/21/19 18:48 18:48 19:55 WBC (4.4-10.8) 10^3/uL RBC (3.93-5.22) 10^6/uL Hgb (11.2-15.7) g/dL Hct (36.0-46.0) % MCV (80-95) fL MCH (27.0-33.0) pg MCHC (32.0-36.0) % RDW (11.7-14.6) % Plt Count (130-400) 10^3/uL MPV (8.0-11.0) fL Immature Gran % Neutrophils % Lymphocytes % Monocytes % Eosinophils % Basophils % Absolute Neutrophils (1.2-6.7) 10^3/uL Absolute Lymphocytes (1.2-3.4) 10^3/uL Absolute Monocytes (0.1-0.8) 10^3/uL Absolute Eosinophils (0.0-0.7) 10^3/uL Absolute Basophils (0.0-0.2) 10^3/uL RBC Morphology Polychromasia Macrocytosis PT (9.3-11.0) sec INR (0.9-1.1) APTT (21.0-31.4) sec VBG pH (7.35-7.45) 7.40 VBG pCO2 (34-47) mm/Hg 29 L VBG pO2 (28-44) mm/Hg 32 VBG HCO3 (22-28) mmol/L 18 L VBG Total CO2 (22-29) mmol/L 16 L VBG O2 Saturation (70-80) % 58 L VBG Base Excess (-3-3) mmol/L -7.1 L Sodium (136-145) mmol/L Potassium (3.5-5.1) mmol/L Chloride (98-107) mmol/L Carbon Dioxide (21.0-32.0) mmol/L Anion Gap (3-11) mmol/L BUN (7-18) mg/dL Creatinine (0.55-1.02) mg/dL Estimated GFR/1.73 m2 (mL/min/1.73m2) Glucose (74-106) mg/dL Lactate (0.6-1.4) mmol/L 4.7 H* Calcium (8.5-10.1) mg/dL Magnesium (1.8-2.4) mg/dL Total Bilirubin (0.2-1.0) mg/dL AST (15-37) U/L ALT (14-59) U/L Alkaline Phosphatase (46-116) U/L Troponin I (<0.06) ng/mL NT-Pro-B Natriuret Pep (<300) pg/mL Total Protein (6.4-8.2) g/dL Albumin (3.4-5.0) g/dL TSH (0.36-3.74) uIU/mL 19.00 H Free T4 (0.76-1.46) ng/dL 1.16 ECG Data Attestation: I personally reviewed and interpreted this ECG (s) as follows: Interpretation: EKG shows sinus rhythm at 83, normal axis, nonspecific ST changes, nondiagnostic EKG HPI General Mode of arrival: ambulatory. Date/Time Provider Initiated Documentation: 09/21/19 18:28. Limitations to Documentation: no limitations. Information obtained by: patient, RN notes reviewed and old records reviewed. HPI Narrative: Martina Kuhn is a 64-year-old woman with a history of polycythemia, pulmonary embolism, hypertension, heavy alcohol use presenting to the emergency department with shortness of breath and overall malaise. Patient reports that she has had multiple pulmonary embolisms in the past and is on chronic anticoagulation. Patient reports that she was switched from Xarelto to Lovenox approximately 3 weeks ago. She reports that she has been compliant with Lovenox. Patient states that over the past week or so she has been feeling more short of breath and also with intermittent chest pain as she has in the past with pulmonary embolisms. Chest pain and shortness of breath worse with exertion, improved with rest. She also reports in the past 3 days she has had a decrease in appetite and has stopped eating and drinking as much as usual. She feels generally weak. She denies any current pain, fever, vomiting, numbness, localized weakness, cough. Related Data Home Medications Medication Instructions Recorded Confirmed aripiprazole [Abilify] 5 mg PO DAILY 06/23/18 09/21/19 escitalopram oxalate [Lexapro] 20 mg PO DAILY 06/23/18 09/21/19 omeprazole 20 mg PO DAILY 08/12/19 09/21/19 enoxaparin 80 mg SUBCUT Q12H #60 ml 08/13/19 09/21/19 levothyroxine 75 mcg PO DAILY #0 tab 08/13/19 09/21/19 Previous Rx's Medication Instructions Recorded enoxaparin 80 mg SUBCUT Q12H #60 ml 08/13/19 levothyroxine 75 mcg PO DAILY #0 tab 08/13/19 Allergies Allergy/AdvReac Type Severity Reaction Status Date / Time Sulfa (Sulfonamide AdvReac Intermediate headache/ Unverified 09/21/19 18:19 Antibiotics) itiching General Stated Complaint: Chest Pain ABIODUN: 2 Review of Systems Narrative: Constitutional: denies fevers, reports fatigue, generalized weakness Eyes: denies eye pain ENT: denies ear pain, dental pain, sore throat Cardiovascular: denies chest pain, edema Respiratory: denies cough, reports SOB GI: denies abdominal pain, vomiting, diarrhea : denies flank pain MSK: denies back pain, neck pain, arthralgias, myalgias Skin: denies rash Neuro: denies headaches, numbness, focal weakness PFSH Medical History Abnormal mammogram (Acute) benign tissue Alcohol abuse (Chronic) Anxiety (Chronic) Depression (Chronic) Hypothyroidism (Chronic) Ulcerative colitis (Chronic) Surgical History Hx of section (Chronic) Hx of colonoscopy (Chronic) Family History Father Heart disease Paternal Grandmother Cancer Maternal Grandmother Cancer Social History Smoking/Tobacco Use Status: Former Tobacco Use Alcohol Intake: current Alcohol Intake frequency: 0-2 drinks per day Alcohol type: wine Drug use: Socially Substance use type: former substance user and marijuana Details: states 2 glasses of wine daily Current gender identity: female Do you feel safe at home: Yes Do you feel safe in your relationship?: Yes Exam Narrative Exam Narrative: Constitutional: well and [id number], pleasant, conversing normally HENT: head atraumatic/normocephalic/normal inspection, mucous membranes moist Eyes: conjunctiva normal, sclera normal, pupils 3mm b/l Neck: no stridor, normal ROM, trachea midline Chest: normal inspection Resp: mild tachypnea, LCTAB Cardio: normal rate, normal rhythm, no murmur appreciated GI: abdomen soft, non-tender, non-distended Back: normal inspection, no rash Skin: warm, dry, normal color, no rash Neuro: alert, not altered, grossly non-focal, normal tone Ext: no edema, no posterior calf TTP Psych: normal mood, normal affect, normal behavior Course Vital Signs Vital signs: Vital Signs Temperature 36.6 C 09/21/19 18:11 Pulse 83 09/21/19 18:11 Respiratory Rate 18 09/21/19 18:11 Blood Pressure 139/78 09/21/19 18:11 Pulse Oximetry 96 09/21/19 18:11 Temperature 36.6 C 09/21/19 18:11 Temperature Source Temporal Artery Scan 09/21/19 18:11 Pulse 83 09/21/19 18:11 Respiratory Rate 18 09/21/19 18:11 Respiratory Effort 09/21/19 18:17 Blood Pressure 139/78 09/21/19 18:11 Blood Pressure Position Supine 09/21/19 18:11 Pulse Oximetry 96 09/21/19 18:11 Oxygen Delivery Method Room Air 09/21/19 18:11 Oxygen Flow Rate 0 09/21/19 18:11 Pain Level 3 09/21/19 18:11
--- NOTE | 2019-09-21 18:30 | DI.CT_ITS ---
EXAM: CT CHEST PE CTA CLINICAL HISTORY: SOB, h/o PE. TECHNIQUE: Imaging Protocol: Axial CT angiography was performed with multi-slice acquisition and mu lti-planar and/or 3D reconstructions. CONTRAST MATERIAL: Intravenous: Omnipaque 350 Contrast volume:72 ml COMPARISON: CT CT CHEST PE CTA from 08/12/2019 FINDINGS: Pulmonary Arteries: There has been significant interval decrease in in previously noted pulmonary emb ese. There is a small amount of residual thrombus in the right lower lobe branch. No left-sided emb ese are seen. Tracheobronchial tree: Patent where visualized. Mediastinum and Eli: No dominant adenopathy or fluid collection. Pulmonary parenchyma: The area of rounded density previously seen in the right lower lobe is decrease d in size. The area of nodularity at the left lung base also decreased in size. The findings may re present interval improvement in pulmonary infarcts. No new infiltrates are seen. Pleura: No effusion or pneumothorax. Heart: The heart is not dilated. No coronary artery calcifications are seen. Aorta: Thoracic aorta non-dilated. Upper abdomen: Fatty liver.. Bones: Old T12 compression fracture. IMPRESSION: Interval improvement in pulmonary emboli with a small amount of residual thrombus in the right lower lobe branch. Improvement in bilateral pulmonary opacities. No new abnormalities are seen. RADIATION DOSE DELIVERED: 436.47mGy.cm Total DLP DATA REPOSITORY: All CT scans at this facility are submitted to the National Radiology Data Registry (NRDR) Dose Index Registry (DIR) with the [employer] (A[employer]). RADIATION OPTIMIZATION: All CT scans at this facility use at least one of these dose optimization te chniques: automated exposure control; mA and/or kV adjustment per patient size (includes targeted exa ms where dose is matched to clinical indication); or iterative reconstruction.
[2019-09-21 18:58] LABS: Abs Immature Grans 0.03 10^3/uL (0.0-0.06); Absolute Basophil Count 0.03 10^3/uL (0.0-0.2); Absolute Eosinophil Count 0.03 10^3/uL (0.0-0.7); Absolute Monocyte Count 0.43 10^3/uL (0.1-0.8); Absolute Neutrophil Count 3.43 10^3/uL (1.2-6.7); Basophils % 0.5; Eosinophils % 0.5; HCT 48.9 % (36.0-46.0); HGB 17.4 g/dL (11.2-15.7); Immature Grans % 0.5; Lymphocytes % 34.7; MCH 39.2 pg (27.0-33.0); MCHC 35.6 % (32.0-36.0); MCV 110.1 fL (80-95); MPV 8.9 fL (8.0-11.0); Monocytes % 7.1; Neutrophils % 56.7; Platelet Count 270 10^3/uL (130-400); RBC 4.44 10^6/uL (3.93-5.22); RDW 15.7 % (11.7-14.6); RDW-SD 63.9 fL; WBC 6.05 10^3/uL (4.4-10.8)
[2019-09-21 19:00] LABS: Lactate 4.7 mmol/L (0.6-1.4)
[2019-09-21 19:10] LABS: PTT Activated 24.5 sec (21.0-31.4); Prothrombin Time 10.2 sec (9.3-11.0)
[2019-09-21] MEDS: Normal Saline 500 ML IV (19:14)
[2019-09-21 19:18] LABS: Diff Comment RBC Morph Reviewed
[2019-09-21 19:19] LABS: Macrocytosis 2+; Polychromasia Present
[2019-09-21 19:26] LABS: ALT 200 U/L (14-59); AST 157 U/L (15-37); Albumin 3.9 g/dL (3.4-5.0); Alkaline Phosphatase 99 U/L (46-116); Anion Gap 21.1 mmol/L (3-11); BUN 7 mg/dL (7-18); Bilirubin, Total 0.6 mg/dL (0.2-1.0); CO2 16.9 mmol/L (21.0-32.0); CREATININE 0.91 mg/dL (0.55-1.02); Calcium 9.3 mg/dL (8.5-10.1); Chloride 99 mmol/L (98-107); Glucose 94 mg/dL (74-106); Magnesium 1.9 mg/dL (1.8-2.4); NT-proBNP 178 pg/mL (<300); Potassium 3.3 mmol/L (3.5-5.1); Sodium 137 mmol/L (136-145); Total Protein 7.5 g/dL (6.4-8.2); Troponin I < 0.05 ng/mL (<0.06)
[2019-09-21] MEDS: Omnipaque 350 MG/ML 100 ML BTL IJ (19:45)
[2019-09-21] MEDS: Normal Saline - Diluent 50 ML VIAL IV (19:47)
[2019-09-21] MEDS: Normal Saline Flush 10 ML SYR IVP ×2 (19:47→23:55)
[2019-09-21 20:01] LABS: BE (Venous) -7.1 mmol/L (-3-3); HCO3 (Venous) 18 mmol/L (22-28); O2 Sat (Venous) 58 % (70-80); TCO2 (Venous) 16 mmol/L (22-29); pCO2 (Venous) 29 mm/Hg (34-47); pO2 (Venous) 32 mm/Hg (28-44)
--- NOTE | 2019-09-21 20:04 | DI.VRAD_ITS ---
PROCEDURE INFORMATION: Exam: CT Angiography Chest With Contrast Exam date and time: 09/21/2019 18:38 Age: 64 years old Clinical indication: Shortness of breath and other: HX pe; Additional info: Pe left leg and lung 08/2019, continuing SOB with no relief TECHNIQUE: Imaging protocol: Computed tomographic angiography of the chest with intravenous contrast. 3D rendering: MIP and/or 3D reconstructed images were created by the technologist. Radiation optimization: All CT scans at this facility use at least one of these dose optimization techniques: automated exposure control; mA and/or kV adjustment per patient size (includes targeted exams where dose is matched to clinical indication); or iterative reconstruction. Contrast material: [id number]; Contrast volume: 72 ml; Contrast route: INTRAVENOUS (IV); COMPARISON: CT CHEST PE CTA 08/12/2019 14:33 FINDINGS: Pulmonary arteries: A significant improvement in burden of pulmonary embolic disease. The distal right main embolus has resolved. No significant right upper lobar emboli. Small amount of residual embolus extending into the right lower lobe, decreased in volume significantly. Left main, left lobar and segmental left-sided emboli appear grossly patent. Aorta: No aortic aneurysm. No aortic dissection. Lungs: Decreased size of a 24 mm right lower lobe subpleural opacity presumably and improving pulmonary infarct. Minor subpleural opacities dependently on the left, very small infarcts versus subsegmental atelectasis, improving. No new pneumonia. A very small subpleural opacity right upper lobe, slightly improved, probably a resolving infarct. Pleural space: No pneumothorax. No pleural effusion. Heart: Slight prominence of the right ventricle relative to the left similar to prior. No pericardial effusion. Lymph nodes: No enlarged lymph nodes. Liver: The visualized liver appears fatty. Bones/joints: Chronic distal thoracic deformity. No acute fracture or subluxation. Soft tissues: No suspicious lesions. IMPRESSION: 1. A significant improvement in burden of pulmonary embolic disease. I favor this reflects improvement in the previous significant pulmonary emboli rather than new emboli however please correlate clinically. 2. Improving pulmonary infarcts. 3. Additional findings as described. Dictated and Authenticated by: Sanna Abarca MD. Ordering:OLIVIA Huitron MD
[2019-09-21 20:08] LABS: FREE T4 1.16 ng/dL (0.76-1.46)
--- NOTE | 2019-09-21 21:39 | HPE_ITS ---
Date of service: 09/21/19 Time of Service: 21:39 Assessment and Plan Assessment and plan (1) Chest pain: Status: Acute Assessment and plan: Regarding the presenting symptoms of CP and SOB, I see no new issues to account for this and I suspect this may be a continuation of known PE and infarcts, though it is not clear why this would symptomatically flare while the objective measures would appear to be improving (note that formal read on CTA cannot exclude new PE versus resolving old, though it remains that clot burden is reduced in any case; but treatment failure does remain a theoretical possibility here). In any case I would continue current regimen for now and it should be noted that hemodynamics and oxygenation are satisfactory. As to the various metabolic abnormalities: I think the most viable and coherent diagnosis at this point would be alcohol -- explaining the AG metabolic acidosis and the transaminitis. Will stand by for ASA level. There would not appear to be any issue with hypoperfusion to otherwise account for a lactic acidosis. Will trend out the numbers and we are getting alcohol level. Will place on CIWA. The undertreated hypothyroidism may account for the more subacute constitutional symptoms and will increase Synthroid to 100 mcg. History of Present Illness History of Present Illness Chief Complaint: CP, SOB Narrative: 64 female here 08/12 with multiple PE/infarcts, had been on Xarelto, has since been switched to Lovenox by [facility] hematology. Reports some weeks of generalized malaise and fatigue, and now several days of SANDOVAL along with vague CP, which only occurs at rest. Here in ER w/u of note for CTA showing improvement in known clot burden and resolving infarcts, no EKG changes (baseline T-wave inversion V1-2), neg troponin, and multiple lab abnormalities including HCO3 16, lactic acid 4.7, AST 157, ALT 200, K 3.3 and pH 7.40 on VBG with CO2 29. TSH also 19 Patient reports 2-3 glasses of wine per day, and does have h/o alcohol abuse, though states not an issue recently. Denies any toxic ingestion and denies ASA use. At first states last drink yesterday, but later tells nurse it was today. Admitted for further eval and management. Review of Systems All systems reviewed & are unremarkable except as noted in HPI and below PFSH Medical History Abnormal mammogram (Acute) benign tissue Alcohol abuse (Chronic) Anxiety (Chronic) Depression (Chronic) Hypothyroidism (Chronic) Ulcerative colitis (Chronic) Surgical History Hx of section (Chronic) Hx of colonoscopy (Chronic) Family History Father Heart disease Paternal Grandmother Cancer Maternal Grandmother Cancer Social History Smoking/Tobacco Use Status: Former Tobacco Use Alcohol Intake: current Alcohol Intake frequency: 0-2 drinks per day Alcohol type: wine Drug use: Socially Substance use type: former substance user and marijuana Details: states 2 glasses of wine daily Current gender identity: female Do you feel safe at home: Yes Do you feel safe in your relationship?: Yes Meds Home Medications and Allergies Home Medications Medication Instructions Recorded Confirmed Type aripiprazole [Abilify] 5 mg PO DAILY 06/23/18 09/21/19 History escitalopram oxalate [Lexapro] 20 mg PO DAILY 06/23/18 09/21/19 History omeprazole 20 mg PO DAILY 08/12/19 09/21/19 History enoxaparin 80 mg SUBCUT Q12H #60 ml 08/13/19 09/21/19 Rx levothyroxine 75 mcg PO DAILY #0 tab 08/13/19 09/21/19 Rx Allergies Allergy/AdvReac Type Severity Reaction Status Date / Time Sulfa (Sulfonamide AdvReac Intermediate headache/ Unverified 09/21/19 18:19 Antibiotics) itiching Exam Narrative Exam Narrative: 112/70, 81, 36.6, 18, 95% RA. HEENT atraumatic; neck supple; lungs clear; heart RRR w/o MRG; abdomen soft and NYT, multiple ecchymoses in pannus; extremities w/o edema; neuro Ox3, nonfocal Results Labs Result diagrams: 09/21/19 18:48 09/21/19 18:48 Labs: Laboratory Results - last 24 hr 09/21/19 09/21/19 09/21/19 18:48 18:48 18:48 WBC 6.05 RBC 4.44 Hgb 17.4 H Hct 48.9 H MCV 110.1 H MCH 39.2 H MCHC 35.6 RDW 15.7 H Plt Count 270 MPV 8.9 Immature Gran % 0.5 Neutrophils % 56.7 Lymphocytes % 34.7 Monocytes % 7.1 Eosinophils % 0.5 Basophils % 0.5 Absolute Neutrophils 3.43 Absolute Lymphocytes 2.10 Absolute Monocytes 0.43 Absolute Eosinophils 0.03 Absolute Basophils 0.03 RBC Morphology See below Polychromasia Present Macrocytosis 2+ PT 10.2 INR 1.0 APTT 24.5 VBG pH VBG pCO2 VBG pO2 VBG HCO3 VBG Total CO2 VBG O2 Saturation VBG Base Excess Sodium 137 Potassium 3.3 L Chloride 99 Carbon Dioxide 16.9 L Anion Gap 21.1 H BUN 7 Creatinine 0.91 Estimated GFR/1.73 m2 >= 60.00 Glucose 94 Lactate Calcium 9.3 Magnesium 1.9 Total Bilirubin 0.6 AST 157 H ALT 200 H Alkaline Phosphatase 99 Troponin I < 0.05 NT-Pro-B Natriuret Pep 178 Total Protein 7.5 Albumin 3.9 TSH Free T4 09/21/19 09/21/19 09/21/19 18:48 18:48 19:55 WBC RBC Hgb Hct MCV MCH MCHC RDW Plt Count MPV Immature Gran % Neutrophils % Lymphocytes % Monocytes % Eosinophils % Basophils % Absolute Neutrophils Absolute Lymphocytes Absolute Monocytes Absolute Eosinophils Absolute Basophils RBC Morphology Polychromasia Macrocytosis PT INR APTT VBG pH 7.40 VBG pCO2 29 L VBG pO2 32 VBG HCO3 18 L VBG Total CO2 16 L VBG O2 Saturation 58 L VBG Base Excess -7.1 L Sodium Potassium Chloride Carbon Dioxide Anion Gap BUN Creatinine Estimated GFR/1.73 m2 Glucose Lactate 4.7 H* Calcium Magnesium Total Bilirubin AST ALT Alkaline Phosphatase Troponin I NT-Pro-B Natriuret Pep Total Protein Albumin TSH 19.00 H Free T4 1.16 Last Vital Signs Temp 36.6 C 09/21/19 18:11 Pulse 70 09/21/19 20:46 Resp 22 09/21/19 20:50 BP 99/57 L 09/21/19 20:46 Pulse Ox 95 09/21/19 20:50 COVID-19 Screening Have you,or household,traveled outside [place] in last 14 days?: No Had IN PERSON contact w/suspected or confirmed C-19 person: No
[2019-09-21 22:05] LABS: Troponin I < 0.05 ng/mL (<0.06)
[2019-09-21 23:24] LABS: Salicylate 3.5 mg/dL (2.8-20.0)
[2019-09-21] MEDS: Enoxaparin 80 MG/0.8 ML SYR SC (23:46)
[2019-09-21] MEDS: POTASSIUM CHLORIDE/0.9% NACL 1,000 ML 100 MEQ IV (23:47)
[2019-09-22 00:13] LABS: Bilirubin Negative (Negative); Blood Trace-intact (Negative); Clarity Clear (Clear); Glucose Negative (Negative); Ketones 15 mg/dL (Negative); Leukocyte Esterase Negative (Negative); Nitrite Negative (Negative); Specific Gravity <= 1.005 (1.005-1.025); Urobilinogen 0.2 EU/dL (Up TO 0.2)
[2019-09-22 00:29] LABS: RBC 0-2 HPF (0-2); WBC 0-2 HPF (0-5)
[2019-09-22 00:30] LABS: Bacteria Negative HPF (Negative); C & S Indicated? No; Casts Negative LPF (Negative); Crystals Negative HPF (Negative); Epithelial Cells Rare HPF (Negative); Mucus Negative (Negative)
[2019-09-22] MEDS: Levothyroxine 100 MCG TAB PO (05:21)
[2019-09-22] MEDS: Omeprazole 20 MG CAPCR PO (05:22)
[2019-09-22 05:29] LABS: Lactate 0.9 mmol/L (0.6-1.4)
[2019-09-22 05:44] LABS: HCT 43.6 % (36.0-46.0); HGB 15.2 g/dL (11.2-15.7); MCH 39.1 pg (27.0-33.0); MCHC 34.9 % (32.0-36.0); MCV 112.1 fL (80-95); MPV 8.9 fL (8.0-11.0); Platelet Count 233 10^3/uL (130-400); RBC 3.89 10^6/uL (3.93-5.22); RDW 16.1 % (11.7-14.6); RDW-SD 66.4 fL; WBC 6.54 10^3/uL (4.4-10.8)
[2019-09-22 06:08] LABS: ALT 142 U/L (14-59); AST 96 U/L (15-37); Anion Gap 9.3 mmol/L (3-11); BUN 7 mg/dL (7-18); CO2 23.7 mmol/L (21.0-32.0); CREATININE 0.93 mg/dL (0.55-1.02); Calcium 8.3 mg/dL (8.5-10.1); Chloride 105 mmol/L (98-107); Glucose 88 mg/dL (74-106); Potassium 4.1 mmol/L (3.5-5.1); Sodium 138 mmol/L (136-145)
[2019-09-22 07:29] VITALS: BP 105/72; PULSE 75; RESP 22; TEMP 36.2; O2SAT 99
[2019-09-22] MEDS: ARIPiprazole 5 MG TAB PO (08:19)
[2019-09-22] MEDS: Escitalopram 20 MG TAB PO (08:19)
[2019-09-22] MEDS: Enoxaparin 80 MG/0.8 ML SYR SC ×2 (09:43→21:33)
[2019-09-22] MEDS: POTASSIUM CHLORIDE/0.9% NACL 1,000 ML 100 MEQ IV (09:43)
--- NOTE | 2019-09-22 10:49 | PDOC.CMIN ---
- If Service Date Differs Date of service: 09/22/19 Time of Service: 10:49 Care Management Initial Assess REASON FOR HOSPITALIZATION:: Chest Pain PAST MEDICAL HISTORY/PAST SURGICAL HISTORY:: Medical History . Abnormal mammogram (Acute). benign tissue. Alcohol abuse (Chronic). Anxiety (Chronic). Depression (Chronic). Hypothyroidism (Chronic). Ulcerative colitis (Chronic). Surgical History . Hx of section (Chronic). Hx of colonoscopy (Chronic) PREVIOUS FUNCTIONAL STATUS/SOCIAL/FAMILY SUPPORTS:: Martina lives alone in an apartment in [place], [place] She is retired after having worked for many years in a variety of positions. Martina has 2 sons; one lives in [place] and the other is in [place]. Martina is originally from [place]. but has lived in [place] for over 30 years. She is independent at baseline but does not drive. She either walks or uses [facility] or a taxi for transportation. Martina identifies her son and a couple of good friends as her main supports. CURRENT FUNCTIONAL STATUS:: Martina was lying in bed when CM met with her. She shared that she is still not feeling very good. She denied the need for any services at discharge and stated that she just wants to feel better. ADVANCE DIRECTIVES:: None on file Has patient been provided with info about the portal/API?: No Did the patient sign up for the portal?: No (no computer access) CODE STATUS:: Full Code INSURANCE COVERAGE / FINANCIAL ISSUES:: None on file CURRENT HOME/COMMUNITY SERVICES/EQUIPMENT:: none currently PRIMARY CARE PHYSICIAN:: Genaro Bonilla POTENTIAL DISCHARGE NEEDS:: Follow up with PCP and discharge plan of care PATIENT/FAMILY EDUCATION NEEDS:: Discharge plan, limitations, follow up plan, Ask Me Three TRANSPORTATION:: via [facility] or private vehicle with a friend PLAN:: Martina will likely return home with no new services. She will follow up with her PCP and discharge plan of care and transport via private vehicle with [facility] or a friend. CM will continue to support Martina and assess for any discharge planning concerns.
[2019-09-22] MEDS: Normal Saline Flush 10 ML SYR IVP (12:13)
--- NOTE | 2019-09-22 13:45 | PHA.REVIEW ---
Pharmacy Admission Review - Admission Clinical Review (Last Reviewed 09/21/19 @ 21:47 by Marshall Rose MD) Chest pain (Acute) Sulfa (Sulfonamide Antibiotics) Adverse Reaction (Intermediate, Unverified 09/21/19 18:19) headache/ itiching Height 5 ft 5 in Weight 81.647 kg - Renal Dosing Renal Dosing: BUN 7 mg/dL (7-18) 09/22/19 05:15 Creatinine 0.93 mg/dL (0.55-1.02) 09/22/19 05:15 Medications needing adjustments: Reviewed (CrCl ~ 66.1 using adjusted BW, current meds okay) - Anticoagulation Anticoagulation: Hgb Cancelled 09/22/19 08:30 Hct Cancelled 09/22/19 08:30 Plt Count Cancelled 09/22/19 08:30 INR 1.0 (0.9-1.1) 09/21/19 18:48 Creatinine 0.93 mg/dL (0.55-1.02) 09/22/19 05:15 DVT Prohphylaxis: N/A Therapeutic Anticoagulation: Reviewed Medications: Enoxaparin (At home med) - Opiate Usage Evaluate Pain Scale/Pains Meds: N/A - Relevant Labs Sodium 138 mmol/L (136-145) 09/22/19 05:15 Potassium 4.1 mmol/L (3.5-5.1) D 09/22/19 05:15 Chloride 105 mmol/L (98-107) 09/22/19 05:15 Magnesium 1.9 mg/dL (1.8-2.4) 09/21/19 18:48 Electrolytes, C-Reactive P, ESR: Reviewed (Ca 8.3 (albumin levels normal), AST 96, ALT 142) - DM Control DM Control: Glucose 88 mg/dL (74-106) 09/22/19 05:15 Insulin Dosing: N/A - Heart Failure/NY Heart Failure/NY: Troponin I < 0.05 ng/mL (<0.06) 09/21/19 21:37 NT-Pro-B Natriuret Pep 178 pg/mL (<300) 09/21/19 18:48 EF%, MARY's, B-Blockers, Diuretics: N/A - BP Control BP Control: Blood Pressure 105/72 If elevated: Reviewed (Within normal range) - Qtc Review If Elevated: Reviewed (QTc 475, she is currently on aripiprazole and escitalopram) - IV to PO Switch IV Medications: Reviewed - Home Meds Home Med List reviewed: Reviewed - Current meds Current Medication Order Review: Reviewed (Levothyroxine dose was increased from home dose by MD due to subacute constitutional symptoms. Will DC iohexol and normal saline (for DI). Changed time of omeprazole from 0600 to 0730 per hospital policy.) - Comments Comments/Follow Ups: Monitor Ca, liver function and QTc. Watch for any med changes (additon of any more QTc prolonging meds)
[2019-09-22 14:44] LABS: COVID-19 RT-PCR UVMMC Result Negative (Negative)
[2019-09-22 21:37] VITALS: BP 121/84; PULSE 74; RESP 20; TEMP 36; O2SAT 99
[2019-09-22] MEDS: Zolpidem 5 MG TAB PO (21:37)
[2019-09-23] MEDS: Omeprazole 20 MG CAPCR PO (06:35)
[2019-09-23] MEDS: Levothyroxine 100 MCG TAB PO (06:35)
[2019-09-23 08:31] VITALS: BP 124/82; PULSE 82; RESP 15; TEMP 35.7; O2SAT 98
[2019-09-23] MEDS: Escitalopram 20 MG TAB PO (08:34)
[2019-09-23] MEDS: ARIPiprazole 5 MG TAB PO (08:34)
--- NOTE | 2019-09-23 09:13 | PDOC.CMPRO ---
- If Service Date Differs Date of service: 09/23/19 Time of Service: 09:13 Care Management Progress Note S/O: A: Martina is a 64 year old woman admitted on 09/21/19 with Chest pain and SOB P; Martina will likely return home with no services when discharged. She will follow up with her PCP and discharge plan of care and transport via private vehicle with family.
--- NOTE | 2019-09-23 09:30 | INDS_ITS ---
Date of service: 09/23/19 Time of Service: 09:30 PT Notes Visit Reasons: CP, SOB, ACIDOSIS Physical Therapy Inpatient Initial Evaluation Date: 09/23/2019 Referring Doctor: Leda Oropeza NP PT Orders: PT CONSULT: Eval/treat Precautions: Fall. Standard. Activity as tolerated. Patient Profile/Admitting Diagnosis: Martina is a 64-year-old female who presented to the ED on 09/21/2019 with chief complaint of shortness of breath that has worsened over the past week prior to admission, decreased appetite, and generalized weakness. Patient is diagnosed with chest pain and detected hypothyroidism. PMHX: Medical History Abnormal mammogram (Acute) benign tissue Alcohol abuse (Chronic) Anxiety (Chronic) Depression (Chronic) Hypothyroidism (Chronic) Ulcerative colitis (Chronic) Surgical History Hx of section (Chronic) Hx of colonoscopy (Chronic) Social History/Home Situation: Lives alone in an apartment with 4 steps to enter. Independent with all aspects of ADLs without the need for an assistive ambulatory device nor adaptive equipment. Reports no falls the past 12 months. Equipment Owned/DME: None Subjective: Patient reports that she feels significantly a lot better than she did when she first came in here. She appeared a little out of breath after ambulation activity but felt better with a few minutes of rest. She states that the dizziness she had is almost gone as of today. Objective: General Observation: IV access in right UE. Mental Status: Alert and oriented x4 Pain: None reported Vital Signs: Oxygen saturation at 98% on room air and heart rate at 71 bpm after ambulation and stair activity ROM: Right Upper Extremity: Shoulder Flexion WFL. Shoulder abduction WFL. Elbow flexion WFL. Wrist flexion WFL. Opening and closing of hand WFL. Left Upper Extremity: Shoulder Flexion WFL. Shoulder abduction WFL. Elbow flexion WFL. Wrist flexion WFL. Opening and closing of hand WFL. Right Lower Extremity: Hip flexion WFL. Hip abduction WFL. Knee flexion WFL. Ankle dorsiflexion WFL. Ankle plantarflexion WFL. Left Lower Extremity: Hip flexion WFL. Hip abduction WFL. Knee flexion WFL. Ankle dorsiflexion WFL. Ankle plantarflexion WFL. Strength: Right Upper Extremity: Shoulder flexors 4/5. Shoulder abductors 5/5. Elbow flexors 5/5. Elbow extensors 5/5. Tower Excavator Operator strong. Left Upper Extremity: Shoulder flexors 4/5. Shoulder abductors 5/5. Elbow flexors 5/5. Elbow extensors 5/5. Tower Excavator Operator strong. Right Lower Extremity: Hip flexors 4/5. Hip abductors 5/5. Knee flexors 5/5. Knee extensors 5/5. Ankle dorsiflexors 5/5. Ankle plantarflexors 5/5. Left Lower Extremity:Hip flexors 4/5. Hip abductors 5/5. Knee flexors 5/5. Knee extensors 5/5. Ankle dorsiflexors 5/5. Ankle plantarflexors 5/5. Sensation: Intact as to pain and pressure on bilateral lower extremities. Bed Mobility/Transfers: Rolling independent Supine to sit independent Sit to supine independent Sit to stand independent Stand to sit independent Bed to chair independent Chair to bed independent Gait: Ambulated 100 feet 50 feet x 2 without an assistive device requiring supervision assist. No LOB seen. Mild SOB observed. Tolerated up-and-down six 4 inch steps and four 6 inch steps while holding onto bilateral rails with step over step pattern requiring supervision assist. Balance: Static Sitting: Normal Dynamic Sitting: Normal Static Standing: Normal Dynamic Standing: Good 4-stage balance test: Tolerated feet together, semi-tandem, and full tandem sessions for 10 seconds each however required contact-guard assist with 1-legged stance indicating a low risk for falls. Special Tests: Mobility Limitations Standardized Measure [facility] 6 clicks Basic Mobility Inpatient Short Form: Raw Score: 24 CMS Score: 0% deficit Informed Consent/Education: Patient instructed in purpose of PT consult and plan of care. Assessment: Martina was able to do well during today's PT evaluation and requires no physical assistance nor assistive ambulatory device to perform ability ADL performance. She may go home once medically cleared by the hospitalist. Patient is assessed [place] a 85502 low complexity based on the following: History: 64-year-old female with impairment level findings, functional limitations, and past medical history as indicated above Examination: No demonstrable impairment in strength and mobility level Presentation: Evolving Decision Makin low complexity Goals: N/A. PT consult only. Plan of Care/Treatment Plan: N/A. PT consult only. DISCHARGE RECOMMENDATIONS: Home when medically cleared by hospitalist. No equipment needed at this time. TREATMENT CODE/TIME: 9716 1 x 25 minutes beginning at 9:30 AM. Thank you for the opportunity to participate in the care of this patient. Toshia Buckley PT, DPT, CLT [facility] [place], [place]
[2019-09-23] MEDS: Enoxaparin 80 MG/0.8 ML SYR SC (10:55)
[2019-09-23] MEDS: Normal Saline Flush 10 ML SYR IVP (10:56)
--- NOTE | 2019-09-23 11:20 | W.PM.DS.N ---
Date of service: 09/23/19 Time of Service: : DS: Diagnosis Discharge Diagnosis (1) Chest pain: Start date: 09/23/19 Start time: : Status: Acute Asessment and Plan: Improving, continuation of known PE and infarcts. She was placed on lovenox and will remain on lovenox until seen by hemotology for further instruction and treatment. She feels comfortable giving herself shots. Oxygen saturation remains above 96% she is hemodynamically stable and is being discharged home. Above case discussed with Dr. Jeronimo who is in agreement. Discharge Plan Disposition Patient Disposition: HOME Condition: Improving Discharge Details Chief Complaint: Chest Pain Reason For Visit: CP, SOB, ACIDOSIS Admit Date/Time: 09/21/19 22:00 Admit Provider: Marshall Rose Attending Provider: Marshall Rose Primary Care Provider: Genaro Bonilla ED Provider: Mcdowell,[facility] Course Hospital Course: 64 y.o femal with PMH Alcohol abuse, Polycythemia, seen here on 08/12 and diagnosed with PE/infarcts she had been on xarlto prior to admission but switched [place] [facility] [place]. She presented to the ED with SANDOVAL, fatigue, CP, and malaise. CTA in the ED did show improvement to the clot and resolving infaracts, no EKG changes with negative troponins. Lab abnormalities included HCO3 16, lactic acid 4.7 K3.3, AST/ALT 157/200 pH 7.4, Tsh 19 with normal T3 4. She was admitted to m/s for further management. Since admission pain is improving. She has maintained oxygenation. Electrolytes corrected. Lactate normalized. Her AST/ALT improved. She did endorse alcohol use, CIWA's 0-1. She is being discharged home on lovenox with follow up to [facility] [place] already set up for Oct. and PCP set up for next week. Home Meds and New Rx's Prescriptions: Continued escitalopram oxalate [Lexapro] 20 mg Tablet 20 mg PO DAILY RF: 0 aripiprazole [Abilify] 5 mg Tablet 5 mg PO DAILY RF: 0 omeprazole 20 mg capsule,delayed release(DR/EC) 20 mg PO DAILY RF: 0 enoxaparin 80 mg/0.8 mL Syringe 80 mg subcut Q12H Qty: 60 RF: 0 levothyroxine 50 mcg tablet 75 mcg PO DAILY Qty: 0 RF: 0 Discharge Instructions Instructions: Pulmonary Embolism (DC) Additional Instructions: Follow up with PCP as schedmonica and Hai jernigan as scheduled. Activity:: Activity as Tolerated Equipment/Supplies:: No Equipment Needed Diet:: As Tolerated Discharge Orders Discharge Orders: Discharge Order (Routine); Ordered 09/23/19 Ordered By: Brittnee Sands DS: Summary Status at Discharge Functional status at discharge: independent ambulation Overall status at discharge: patient is back to baseline Mental Status: mental status grossly normal Speech and Movement: speech and movement normal Mood: congruent mood Affect: normal affect Exam Const General: cooperative, healthy appearing and no acute distress HENMT Head: normal to inspection Ears: hearing grossly normal bilaterally Eyes General: appearance normal, both eyes and all related structures Sclera: sclerae normal Cornea: corneas normal Pupils: PERRL EOM: EOM intact bilaterally Neck Neck: full ROM and no JVD Lymphatic: no lymphadenopathy noted Chest Chest: normal inspection of the chest Resp Effort & Inspection: normal respiratory effort Auscultation: clear to auscultation bilaterally Cardio Jugular venous pressure: no JVD Rate: regular rate Rhythm: regular rhythm Heart Sounds: S1 normal and S2 normal GI Palpation: soft and no hepatosplenomegaly Percussion: normal to percussion Auscultation: normal bowel sounds General: deferred Neuro General: patient alert, patient awake and patient oriented x3 Extrem General: normal to inspection, full ROM and no clubbing, cyanosis or edema Psych Appearance: grossly normal Mental Status: mental status grossly normal Speech and Movement: speech and movement normal Mood: congruent mood Affect: normal affect DS: Data Vitals/I&O Vitals and I&O: Vital Signs Temperature 35.7 C L 09/23/19 08:31 Temperature Source Tympanic 09/23/19 08:31 Pulse 82 09/23/19 08:31 Pulse Rhythm Regular 09/23/19 05:11 Pulse 72 09/21/19 20:50 Respiratory Rate 15 09/23/19 08:31 Respiratory Effort 09/23/19 05:11 Respiratory Depth Deep 09/22/19 19:28 Respiratory Pattern Tachypnea 09/22/19 19:28 Blood Pressure 124/82 09/23/19 08:31 Blood Pressure Mean 66 09/21/19 20:46 Blood Pressure Position Supine 09/21/19 18:11 Pulse Oximetry 98 09/23/19 08:31 Oxygen Delivery Method Room Air 09/23/19 08:31 Oxygen Flow Rate 0 09/23/19 08:31 Pain Level 0 09/23/19 08:31 Intake & Output 09/22/19 09/22/19 09/23/19 11:59 23:59 11:59 Intake Total 1411.666 / 1411.666 480 / 480 Output Total 400 / 600 200 / 600 Balance 1011.666 / 811.666 -200 / 811.666 480 / 480 Weight 81.9 kg Intake: IV 1171.666 / 1171.666 Oral 240 / 240 480 / 480 Output: Urine 400 / 600 200 / 600 Other: Urine Color [place] Yellow Urine Appearance Clear Clear Stool Size Moderate Stool Characteristics Liquid Voiding Methods Toilet Toilet Data Completed and Pending Completed studies during hospitalization [Text1]: IMPRESSION: 1. A significant improvement in burden of pulmonary embolic disease. I favor this reflects improvement in the previous significant pulmonary emboli rather than new emboli however please correlate clinically. 2. Improving pulmonary infarcts. 3. Additional findings as described. Labs on day of discharge: Labs from last 24 hours 09/21/19 21:35 COVID-19 PCR Negative Nasopharyn COVID-19 PCR Not Applicable Ref Test Perform Site [facility] lab Preliminary micro results at discharge 09/21/19 19:07 Blood Culture - Preliminary Blood NO GROWTH 24 HOURS 09/21/19 19:15 Blood Culture - Preliminary Blood NO GROWTH 24 HOURS [facility] Medical History Abnormal mammogram (Acute) benign tissue Alcohol abuse (Chronic) Anxiety (Chronic) Depression (Chronic) Hypothyroidism (Chronic) Ulcerative colitis (Chronic) Surgical History Hx of section (Chronic) Hx of colonoscopy (Chronic) Family History Father Heart disease Paternal Grandmother Cancer Maternal Grandmother Cancer Social History Smoking/Tobacco Use Status: Former Tobacco Use Alcohol Intake: current Alcohol Intake frequency: 0-2 drinks per day Alcohol type: wine Drug use: Socially Substance use type: former substance user and marijuana Details: states 2 glasses of wine daily Current gender identity: female Do you feel safe at home: Yes Do you feel safe in your relationship?: Yes
--- NOTE | 2019-09-23 13:53 | PDOC.CMDIS ---
- If Service Date Differs Date of service: 09/23/19 Time of Service: 13:53 LACE Index Scoring Tool - Questions: Length of Stay (in days): 2 Acuity (Admit via E.D.?): Yes E.D. Visits: 4 - Answers: Total Score: 9 Risk of Readmission: Low Risk Care Management Discharge Reason for Hospitalization: Chest Pain Discharge Plan: Martina will return home with no new services. She will follow up with her PCP and discharge plan of care and transport via private vehicle with [facility] or a friend. Patient/Family Education Needs: Discharge plan, limitations, follow up plan, Ask Me Three
--- NOTE | 2019-09-23 15:54 | CHAPLAIN ---
Martina was resting in bed when I visited. She said she may be discharged today. (She was.) She has been in touch with family by phone. Martina said she lives on [address] in [facility], and has a 9-month old grandson in [place]. Because of the restrictions due to COVID-19, she has only seen him once since he was born. We talked about the difficulties of not getting to see family these days.
== END 2019-09-23 12:55 | disposition home or self-care (01) | DRG 176 ==
LOC: ER 21:07 → MS 22:52
PROVIDERS: Emergency Medicine; Admitting Provider General Practice; Emergency Provider Student in an Organized Health Care Education/Training Program; PCP Nurse Practitioner Family; Visit Provider General Practice
DX: I27.82 Chronic pulmonary embolism (principal); E87.2 Acidosis; K51.90 Ulcerative colitis, unspecified, without complications; R06.02 Shortness of breath; I10 Essential (primary) hypertension; F10.10 Alcohol abuse, uncomplicated; F41.9 Anxiety disorder, unspecified; F32.9 Major depressive disorder, single episode, unspecified; E03.9 Hypothyroidism, unspecified; Z79.01 Long term (current) use of anticoagulants; D75.1 Secondary polycythemia
CPT/HCPCS: 36415; 71275; 80048; 80053; 82805; 85027; 87040; 93005; 96360; 96361; 97161; 99222; 99239; 99285; U0003; 80329; 81003; 81015; 83605; 83735; 83880; 84439; 84443; 84450; 84460; 84484; 85025; 85610; 85730; 93010; J1650; J3490

== ENCOUNTER 2019-10-12 02:12 | Outpatient (CLI) | payer MEDICAID, SELFPAY ==
[2019-10-12 08:49] LABS: Bilirubin Moderate (Negative); Blood Trace-intact (Negative); Clarity Sl Cloudy (Clear); Glucose Negative (Negative); Ketones 40 mg/dL (Negative); Leukocyte Esterase Trace (Negative); Nitrite Positive (Negative)
[2019-10-12 09:00] LABS: Abs Immature Grans 0.03 10^3/uL (0.0-0.06); Absolute Basophil Count 0.03 10^3/uL (0.0-0.2); Absolute Eosinophil Count 0.04 10^3/uL (0.0-0.7); Absolute Lymphocyte Count 1.08 10^3/uL (1.2-3.4); Absolute Neutrophil Count 3.88 10^3/uL (1.2-6.7); Basophils % 0.5; Eosinophils % 0.7; HCT 49.1 % (36.0-46.0); HGB 17.1 g/dL (11.2-15.7); Immature Grans % 0.5; Lymphocytes % 19.8; MCHC 34.8 % (32.0-36.0); MCV 114.7 fL (80-95); MPV 8.7 fL (8.0-11.0); Monocytes % 7.3; Neutrophils % 71.2; Nucleated RBC 0 %; Platelet Count 226 10^3/uL (130-400); RBC 4.28 10^6/uL (3.93-5.22); RDW 15.1 % (11.7-14.6); RDW-SD 65.3 fL; WBC 5.46 10^3/uL (4.4-10.8)
[2019-10-12 09:02] LABS: Bacteria Few HPF (Negative); C & S Indicated? No/Sq. Contamination; Casts Negative LPF (Negative); Crystals Negative HPF (Negative); Epithelial Cells Many HPF (Negative); Mucus Trace (Negative)
[2019-10-12 09:04] LABS: PROTEIN 30.3 mg/dL
[2019-10-12 09:42] LABS: COMMENT (LAB VIEW ONLY) 405.98 mg/dL; Prot/Crea Ur Ratio 0.07
[2019-10-12 09:47] LABS: ALT 147 U/L (14-59); AST 93 U/L (15-37); Albumin 3.9 g/dL (3.4-5.0); Alkaline Phosphatase 90 U/L (46-116); Anion Gap 11.8 mmol/L (3-11); BUN 9 mg/dL (7-18); Bilirubin, Total 1.3 mg/dL (0.2-1.0); C-Reactive Protein 0.22 mg/dL (0.0-0.3); CO2 27.2 mmol/L (21.0-32.0); CREATININE 1.09 mg/dL (0.55-1.02); Calcium 9.4 mg/dL (8.5-10.1); Chloride 100 mmol/L (98-107); Estimated GFR 50.86 (mL/min/1.73m2); Glucose 108 mg/dL (74-106); Sodium 139 mmol/L (136-145)
[2019-10-12 10:14] LABS: Vitamin B12 310 pg/mL (193-986)
[2019-10-12 10:47] LABS: ESR 1 mm/hr (0-30)
[2019-10-13 14:28] LABS: Myeloperoxidase Ab IgG <0.2 U; Proteinase 3 Ab (PR3) <0.2 U
[2019-10-13 15:08] LABS: Angiotensin Converting Enzyme 40 U/L (16 - 85)
[2019-10-13 15:23] LABS: ANCA Interpretation Negative (Negative)
== END 2019-10-12 02:32 ==
PROVIDERS: PCP Nurse Practitioner Family; Visit Provider Internal Medicine Critical Care Medicine
DX: D75.1 Secondary polycythemia (principal); E83.51 Hypocalcemia; Z51.81 Encounter for therapeutic drug level monitoring; R39.15 Urgency of urination; M31.30 Wegener's granulomatosis without renal involvement
CPT/HCPCS: 36415; 80053; 82164; 85652; 86255; 81003; 81015; 82565; 82607; 82746; 83516; 84156; 85025; 86140

== ENCOUNTER 2019-11-14 23:17 | Emergency (ER) | payer MEDICAID, SELFPAY ==
--- NOTE | 2019-11-14 23:15 | RT.EKG_ITS ---
APPROVED REPORT Exam: Resting ECG Patient Location: E HR:74 bpm ECG Measurements Heart Rate 74 AXIS AL 142 P 56 QRSd 76 QRS 34 QT 433 T 31 QTc 483 Conclusion Sinus rhythm...normal P axis, V-rate 60- 99 Low voltage, precordial leads...precordial leads <1.0mV Nonspecific T abnormalities, anterior leads...T <-0.10mV, V2-V4
--- NOTE | 2019-11-14 23:15 | DI.CT_ITS ---
EXAM: CT CHEST PE CTA CLINICAL HISTORY: history of pe's on lovenox, left chest pain. TECHNIQUE: Imaging Protocol: Axial CT angiography was performed with multi-slice acquisition and mu lti-planar and/or 3D reconstructions. CONTRAST MATERIAL: Intravenous: Omnipaque 350 Contrast volume:100 mL COMPARISON: CT CT CHEST PE CTA from 09/21/2019 FINDINGS: Pulmonary Arteries: There are again seen partially occlusive thrombus in the segmental pulmonary destin ry supplying the right lower lobe. This is unchanged compared to the examination from 09/21/2019. No new pulmonary emboli is identified. Tracheobronchial tree: Patent where visualized. Mediastinum and Eli: No dominant adenopathy or fluid collection. Pulmonary parenchyma: There are stable opacities present in the posterior lateral aspect of the right lower lobe, the right upper lobe the left lower lobe. There is a 1.5 x 2.3 cm opacity in the right lower lobe. There is a 0.8 cm opacity in the right upper lobe. No new pulmonary infiltrates are see n. No architectural distortion. Pleura: No effusion or pneumothorax. Heart: The heart is not dilated. No evidence of right heart strain or pericardial effusion. Aorta: Thoracic aorta non-dilated. No evidence of dissection. Upper abdomen: Mildly enlarged and fatty liver. There is apparent thickening of the wall of the sto mach. This may reflect gastritis. However the stomach is incompletely distended. Follow-up as clin ically appropriate. Bones: Stable T12 compression deformity. Mild degenerative changes in the spine. Soft tissues: Unremarkable. IMPRESSION: 1. Stable partially occlusive thrombus the right lower lobe pulmonary arteries. No new pulmonary emb ese. 2. Stable peripheral pulmonary opacities. The largest is seen in the right lower lobe. These likely reflect represent sequelae of prior pulmonary infarction. Consider follow-up CT to document resolut ion. RADIATION DOSE DELIVERED: 507.62mGy.cm Total DLP DATA REPOSITORY: All CT scans at this facility are submitted to the National Radiology Data Registry (NRDR) Dose Index Registry (DIR) with the [employer] (ACR). RADIATION OPTIMIZATION: All CT scans at this facility use at least one of these dose optimization te chniques: automated exposure control; mA and/or kV adjustment per patient size (includes targeted exa ms where dose is matched to clinical indication); or iterative reconstruction.
[2019-11-14 23:24] VITALS: BP 95/48; PULSE 77; RESP 16; TEMP 36.4; O2SAT 94
[2019-11-14 23:35] VITALS: RESP 18
[2019-11-14] MEDS: Omnipaque 350 MG/ML 100 ML BTL IJ (23:39)
--- NOTE | 2019-11-14 23:41 | ED.GENADUL_ITS ---
Discharge Plan Disposition Patient Disposition: HOME Condition: Stable Discharge Details Clinical Impression: Chest pain Primary Care Provider: Genaro Bonilla ED Provider: Marshall Jim Home Meds and New Rx's Prescriptions: New cyclobenzaprine 10 mg tablet 10 mg PO TID PRNQty: 20 RF: 0 Continued escitalopram oxalate [Lexapro] 20 mg Tablet 20 mg PO DAILY RF: 0 aripiprazole [Abilify] 5 mg Tablet 5 mg PO DAILY RF: 0 omeprazole 20 mg capsule,delayed release(DR/EC) 20 mg PO DAILY RF: 0 enoxaparin 80 mg/0.8 mL Syringe 80 mg subcut Q12H Qty: 60 RF: 0 levothyroxine 50 mcg tablet 75 mcg PO DAILY Qty: 0 RF: 0 Discharge Instructions Additional Instructions: Your cat scan did not show any new blood clots and there were no other concerning new findings on your blood work or cat scan. This is likely pain from the chest wall if you have severe worsening pain, fevers, or feel more ill return to the emergency department follow up with your providers at [facility] as scheduled in November do not drink alcohol or operate heavy machinery if you take the flexeril (cyclobenzaprine) Medical Decision Making 64 yo female with hx of prior PE on lovenox which she self administers and denies missing any doses, hypothyroidism, who comes in with ems with right sided chest pain that is positional and hurts with deep breaths similar to her prior left sided PE so came here for an evaluation. She arrives HD stable, no leg swelling or calf pain. With nurse Emily Renner at the bedside I performed an inspection of the chest wall and she she has no rashes, no breast swelling, does have tenderness over the 2-3 ribs on the right in mid clavicular line, no murmurs and clear breath sounds. Her pain seems musculoskeletal in nature, no findings to suggest cellulitis or abscess. Given her history and wells score being moderate will obtain CT to evaluate for PE and possible ptx. Her pain is reproducible, no pain with exertion and no radiation of pain so doubt acs. No tearing back pain and normal vascular exam so doubt dissection. labs show mild elevation in lft's and she does admit to daily wine drinking which is likely the cause of this, no abdominal tenderness, otherwise labs unremarkable and awaiting imaging no acute changes on ct, no new infltrates or PE and no ptx. SHe remains hd stable with pain only when I palpate the chest wall which makes me feel this is chest wall pain and given 2 days of pain do not feel repeat troponin testing indicated She [place] [facility] [place] and is comfortable with d/c and f/u with them. She was advised to return to the emergency department for new or worsening symptoms Differential Diagnosis Differential Diagnosis: chest wall pain, pe, ptx Medical Records Medical records reviewed: Yes I reviewed the patient's medical records. Imaging Data Radiologic Study: Attestation: I personally reviewed and interpreted this imaging study as follows: Imaging: CT Scan Radiologist's impression: 1. No significant change from the prior study. Chronic partially occlusive thrombus is again seen within the proximal segmental pulmonary artery supplying the right lower lobe. No new or acute pulmonary emboli. 2. Stable peripheral pulmonary opacities, with the largest seen within the right lower lobe measuring 1.5 x 2.3 cm, which has a rounded appearance. This likely represents sequela of prior pulmonary infarction. Attention on subsequent imaging is suggested. 3. Gastritis. 4. Enlarged fatty infiltrated liver. Thank Lab Data Lab results reviewed: Yes I reviewed the patient's lab results. ECG Data Attestation: I personally reviewed and interpreted this ECG (s) as follows: Prior ECG tracings: not available for review Interpretation: sinus rhythm, rate of 74, pr 142, qtc 483 HPI General Mode of arrival: EMS . Date/Time Provider Initiated Documentation: 11/14/19 23:19 . Limitations to Documentation: no limitations . Information obtained by: patient . History of Present Illness 64 year old F presents to the emergency department with the chief complaint of right sided chest pain, described as moderate, Patient started experiencing this day(s) (2) and it has been constant. Other factors that worsen symptoms (movement) . Patient notes no other symptoms.. Patient did receive the following treatments prior to arrival, none Related Data Home Medications Medication Instructions Recorded Confirmed aripiprazole [Abilify] 5 mg PO DAILY 06/23/18 11/14/19 escitalopram oxalate [Lexapro] 20 mg PO DAILY 06/23/18 11/14/19 omeprazole 20 mg PO DAILY 08/12/19 11/14/19 enoxaparin 80 mg SUBCUT Q12H #60 ml 08/13/19 11/14/19 levothyroxine 75 mcg PO DAILY #0 tab 08/13/19 11/14/19 cyclobenzaprine 10 mg PO TID PRN #20 tab 11/15/19 Previous Rx's Medication Instructions Recorded enoxaparin 80 mg SUBCUT Q12H #60 ml 08/13/19 levothyroxine 75 mcg PO DAILY #0 tab 08/13/19 cyclobenzaprine 10 mg PO TID PRN #20 tab 11/15/19 Allergies Allergy/AdvReac Type Severity Reaction Status Date / Time Sulfa (Sulfonamide AdvReac Intermediate headache/ Unverified 11/14/19 23:27 Antibiotics) itiching General Stated Complaint: Chest/Rib ABIODUN: 3 Review of Systems All systems reviewed & are unremarkable except as noted in HPI and below Constitutional Constitutional: Denies chills, Denies fever(s) and Denies weakness Cardiovascular Cardiovascular: Denies chest pain and Denies dyspnea Respiratory Respiratory: Denies cough and Denies dyspnea Gastrointestinal Gastrointestinal: Denies abdominal pain, Denies nausea and Denies vomiting Musculoskeletal Musculoskeletal: Denies joint swelling Neurologic Neurologic: Denies weakness Psychiatric Psychiatric: Denies depression [facility] Medical History (Updated 11/15/19 @ 00:51 by Marshall Jim MD) Abnormal mammogram benign tissue Alcohol abuse Anxiety Depression Hypothyroidism Ulcerative colitis Surgical History Hx of section Hx of colonoscopy Family History Father Heart disease Paternal Grandmother Cancer Maternal Grandmother Cancer Social History Smoking/Tobacco Use Status: Current every day Tobacco Type: cigarettes Years smoked: 46 Tobacco: How many years used: 46 Alcohol Intake: current Alcohol Intake frequency: 0-2 drinks per day Alcohol type: wine Drug use: Socially Substance use type: former substance user and marijuana Current gender identity: female Do you feel safe at home: Yes Do you feel safe in your relationship?: Yes Exam Const General: no acute distress Orientation: alert HENMT Head: normal to inspection Ears: external ears normal General nose exam: external nose normal Mouth: moist mucous membranes Eyes General: appearance normal, both eyes and all related structures Neck Neck: normal visual inspection Chest Chest: normal inspection of the chest and tenderness Resp Effort & Inspection: normal respiratory effort and able to speak in complete sentences Cardio Rate: regular rate Skin General skin exam: no rashes or lesions noted Neuro General: patient alert and patient oriented x3 Extrem General: normal to inspection Psych Mental Status: mental status grossly normal Course Vital Signs Vital signs: Vital Signs Temperature 36.4 C L 11/14/19 23:24 Pulse 77 11/14/19 23:24 Respiratory Rate 16 11/14/19 23:24 Blood Pressure 95/48 L 11/14/19 23:24 Pulse Oximetry 94 11/14/19 23:24 Temperature 36.4 C L 11/14/19 23:24 Temperature Source Skin 11/14/19 23:24 Pulse 77 11/14/19 23:24 Respiratory Rate 16 11/14/19 23:24 Blood Pressure 95/48 L 11/14/19 23:24 Blood Pressure Position Supine 11/14/19 23:24 Pulse Oximetry 94 11/14/19 23:24 Oxygen Delivery Method Room Air 11/14/19 23:24 Oxygen Flow Rate 0 11/14/19 23:24 End Tidal Co2 10 11/14/19 23:24
[2019-11-14 23:42] VITALS: BP 99/63; PULSE 75; PULSE 76; RESP 21; O2SAT 93
[2019-11-14 23:49] VITALS: PULSE 78; RESP 17; O2SAT 93
[2019-11-14] MEDS: Ondansetron 4 MG/2 ML VIAL IVP (23:50)
[2019-11-14 23:52] LABS: Abs Immature Grans 0.03 10^3/uL (0.0-0.06); Absolute Basophil Count 0.03 10^3/uL (0.0-0.2); Absolute Eosinophil Count 0.06 10^3/uL (0.0-0.7); Absolute Lymphocyte Count 2.47 10^3/uL (1.2-3.4); Absolute Monocyte Count 0.39 10^3/uL (0.1-0.8); Absolute Neutrophil Count 1.81 10^3/uL (1.2-6.7); Basophils % 0.6; Eosinophils % 1.3; HCT 46.2 % (36.0-46.0); HGB 16.5 g/dL (11.2-15.7); Immature Grans % 0.6; Lymphocytes % 51.6; MCH 40.2 pg (27.0-33.0); MCHC 35.7 % (32.0-36.0); MCV 112.7 fL (80-95); MPV 8.9 fL (8.0-11.0); Monocytes % 8.1; Neutrophils % 37.8; Nucleated RBC 0 %; Platelet Count 218 10^3/uL (130-400); RDW 13.6 % (11.7-14.6); RDW-SD 56.7 fL; WBC 4.79 10^3/uL (4.4-10.8)
[2019-11-15] MEDS: Normal Saline - Diluent 50 ML VIAL IV (00:07)
[2019-11-15 00:08] VITALS: BP 100/57; PULSE 72; RESP 23; O2SAT 94
[2019-11-15 00:08] LABS: ALT 198 U/L (14-59); AST 281 U/L (15-37); Albumin 3.3 g/dL (3.4-5.0); Alkaline Phosphatase 93 U/L (46-116); BUN 6 mg/dL (7-18); Bilirubin, Total 0.5 mg/dL (0.2-1.0); CREATININE 0.79 mg/dL (0.55-1.02); Calcium 9.2 mg/dL (8.5-10.1); Chloride 102 mmol/L (98-107); Glucose 108 mg/dL (74-106); Lipase 267 U/L (73-393); NT-proBNP 104 pg/mL (<300); Potassium 3.2 mmol/L (3.5-5.1); Sodium 139 mmol/L (136-145); Total Protein 6.7 g/dL (6.4-8.2)
[2019-11-15 00:09] LABS: Troponin I < 0.05 ng/mL (<0.06)
[2019-11-15 00:15] LABS: PTT Activated 27.9 sec (21.0-31.4); Prothrombin Time 9.9 sec (9.3-11.0)
[2019-11-15] MEDS: Normal Saline Flush 10 ML SYR IVP (00:17)
[2019-11-15 00:18] VITALS: PULSE 71; RESP 15; O2SAT 90
--- NOTE | 2019-11-15 00:20 | NUR.NOTE ---
Nursing Note: Patient's oxygen saturations noted to dip to mid-low 80s. Patient denies any shortness of breath with this. Placed on 2L of oxygen and sats brought back up to mid 90s.
[2019-11-15 00:32] LABS: Diff Comment Agrees w/ Instrument; Macrocytosis 2+
[2019-11-15] MEDS: Acetaminophen 500 MG TAB 1000 MG PO (00:35)
--- NOTE | 2019-11-15 00:37 | DI.VRAD_ITS ---
PROCEDURE INFORMATION: Exam: CT Angiography Chest With Contrast Exam date and time: 11/14/2019 11:22 PM Age: 64 years old Clinical indication: Right-sided chest pain; Patient HX: History of pe's on lovenox, right chest pain TECHNIQUE: Imaging protocol: Computed tomographic angiography of the chest with intravenous contrast. 3D rendering (Not supervised by radiologist): MIP and/or 3D reconstructed images were created by the technologist. Radiation optimization: All CT scans at this facility use at least one of these dose optimization techniques: automated exposure control; mA and/or kV adjustment per patient size (includes targeted exams where dose is matched to clinical indication); or iterative reconstruction. Contrast material: OMNIPAQUE 350; Contrast volume: 100 ml; Contrast route: INTRAVENOUS (IV); COMPARISON: CT CHEST PE CTA 09/21/2019 7:44 PM FINDINGS: Pulmonary arteries: Persistent partially occlusive thrombus is seen within the proximal segmental pulmonary arteries supplying the right lower lobe. This is similar when compared to the prior study. No new the areas of pulmonary emboli. The central pulmonary arteries opacify normally with contrast and are normal in size. Aorta: The thoracic aorta is normal in caliber without aneurysm or dissection. Lungs: Rounded pulmonary opacification is again seen within the posterolateral basilar segment of the right lower lobe measuring 1.5 x 2.3 cm. This is similar when compared to the prior study. A smaller wedge-shaped pulmonary opacity is seen within the right upper lobe posteriorly measuring 0.8 x 0.8 cm. A small pulmonary opacity is again seen within the posterior and medial basilar segments of the left lower lobe. No new pulmonary infiltrate is seen. Pleural space: Unremarkable. No pneumothorax. No pleural effusion. Heart: The heart is upper limits of normal in size. No evidence for right heart strain. Mediastinal space: The esophagus is diffusely patulous and dilated. Lymph nodes: Unremarkable. No enlarged lymph nodes. Liver: The liver is mildly enlarged and moderately fatty infiltrated. Kidneys and ureters: The superior bilateral renal poles are normal appearance. Stomach and bowel: Wall thickening throughout the gastric folds. Wall thickening is seen within the imaged transverse colon, unchanged. Bones/joints: Mild degenerative changes are seen throughout the thoracic spine. Soft tissues: Unremarkable. IMPRESSION: 1. No significant change from the prior study. Chronic partially occlusive thrombus is again seen within the proximal segmental pulmonary artery supplying the right lower lobe. No new or acute pulmonary emboli. 2. Stable peripheral pulmonary opacities, with the largest seen within the right lower lobe measuring 1.5 x 2.3 cm, which has a rounded appearance. This likely represents sequela of prior pulmonary infarction. Attention on subsequent imaging is suggested. 3. Gastritis. 4. Enlarged fatty infiltrated liver. Dictated and Authenticated by: Minoo Rasmussen MD. Ordering:LENIN Olivares MD
[2019-11-15 01:00] VITALS: BP 98/61; PULSE 73; PULSE 75; RESP 24; O2SAT 97
[2019-11-15] MEDS: Cyclobenzaprine 10 MG TAB, 3 TABS/BTL PO (01:20)
[2019-11-15 01:27] VITALS: PULSE 81; RESP 23; O2SAT 93
== END 2019-11-15 01:00 | disposition home or self-care (01) ==
PROVIDERS: Emergency Provider Emergency Medicine; PCP Nurse Practitioner Family
DX: R07.81 Pleurodynia (principal); R09.02 Hypoxemia; Z86.711 Personal history of pulmonary embolism; Z79.01 Long term (current) use of anticoagulants
CPT/HCPCS: 36415; 71275; 80053; 83690; 93005; 96374; 96375; 99285; 83735; 83880; 84484; 85025; 85610; 85730; 93010; J2405; J3490

== ENCOUNTER 2019-11-24 09:13 | Outpatient (REF) | payer MEDICAID, SELFPAY ==
[2019-11-24 19:05] LABS: TSH (W/Ref FT4) 1.75 uIU/mL (0.36-3.74)
== END 2019-11-24 09:33 ==
LOC: NCHCN 09:13
PROVIDERS: PCP Nurse Practitioner Family; Visit Provider Nurse Practitioner Family
DX: E03.9 Hypothyroidism, unspecified (principal)
CPT/HCPCS: 84443

== ENCOUNTER 2019-12-24 16:24 | Emergency (ER) | payer MEDICAID, SELFPAY ==
[2019-12-24 16:41] VITALS: BP 129/75; PULSE 90; RESP 16; TEMP 36.6; O2SAT 96
--- NOTE | 2019-12-24 16:55 | ED.GENADUL_ITS ---
Discharge Plan Disposition Patient Disposition: AGAINST MEDICAL ADVICE Condition: Stable Discharge Details Clinical Impression: Left against medical advice Primary Care Provider: Genaro Bonilla ED Provider: Kristofer Orantes Home Meds and New Rx's Prescriptions: Continued nystatin 100,000 unit/gram cream 1 applic topical BID RF: 0 folic acid 1 mg tablet 1 mg PO DAILY RF: 0 escitalopram oxalate [Lexapro] 20 mg Tablet 20 mg PO DAILY RF: 0 aripiprazole [Abilify] 5 mg Tablet 5 mg PO DAILY RF: 0 omeprazole 20 mg capsule,delayed release(DR/EC) 20 mg PO DAILY RF: 0 enoxaparin 80 mg/0.8 mL Syringe 80 mg subcut Q12H Qty: 60 RF: 0 levothyroxine 50 mcg tablet 75 mcg PO DAILY Qty: 0 RF: 0 Discharge Instructions Additional Instructions: You elected to leave AGAINST MEDICAL ADVICE. Please return at any time for reevaluation. Medical Decision Making 64-year-old female presents from home with 4 days of right lower extremity pain from the knee to the ankle. It was atraumatic, gradual in onset, feels similar as to when she had DVT. She has been taking her Lovenox as prescribed and denies missed dose. She arrives with unremarkable signs and a reassuring exam without evidence of cord or swelling. Patient was given Tylenol and methocarbamol. Ultrasound was ordered and pending. At approximately 5:50 PM the patient stated she was unwilling to stay for completion of the work-up. She will be signed out AGAINST MEDICAL ADVICE. She is in no distress and demonstrates capacity to make this decision. HPI General Mode of arrival: ambulatory . Date/Time Provider Initiated Documentation: 12/24/19 16:27 . Limitations to Documentation: no limitations . Information obtained by: patient . History of Present Illness 64 year old F presents to the emergency department with the chief complaint of Right leg pain similar to previous DVT, described as mild and similar to prior episodes, Quality is described as constant, and is localized to the right and lower extremity. Patient reports no radiation. Patient started experiencing this day(s) and it has been constant. No relieving factors improve symptom(s), No exacerbating factors reported . Patient notes denies chest pain, loss of appetite, shortness of breath and syncope. Patient did receive the following treatments prior to arrival, none Related Data Home Medications Medication Instructions Recorded Confirmed aripiprazole [Abilify] 5 mg PO DAILY 06/23/18 12/24/19 escitalopram oxalate [Lexapro] 20 mg PO DAILY 06/23/18 12/24/19 omeprazole 20 mg PO DAILY 08/12/19 12/24/19 enoxaparin 80 mg SUBCUT Q12H #60 ml 08/13/19 12/24/19 levothyroxine 75 mcg PO DAILY #0 tab 08/13/19 12/24/19 nystatin 100,000 unit/gram topical 1 applic TOPICAL BID 12/19/19 12/24/19 cream folic acid 1 mg PO DAILY 12/24/19 12/24/19 Previous Rx's Medication Instructions Recorded enoxaparin 80 mg SUBCUT Q12H #60 ml 08/13/19 levothyroxine 75 mcg PO DAILY #0 tab 08/13/19 Allergies Allergy/AdvReac Type Severity Reaction Status Date / Time Sulfa (Sulfonamide AdvReac Intermediate headache/ Unverified 12/24/19 16:47 Antibiotics) itiching General Stated Complaint: Vascular ABIODUN: 3 Review of Systems Narrative: 6 systems reviewed and otherwise negative [facility] Medical History Abnormal mammogram benign tissue Alcohol abuse Anxiety Depression History of tobacco abuse Hypothyroidism Ulcerative colitis Surgical History Hx of section Hx of colonoscopy Family History Father Heart disease Paternal Grandmother Cancer Maternal Grandmother Cancer Social History Smoking/Tobacco Use Status: Current every day Tobacco Type: cigarettes Years smoked: 46 Tobacco: How many years used: 46 Smoking risk assessment performed?: Yes Alcohol Intake: current Alcohol Intake frequency: 0-2 drinks per day Alcohol type: wine Drug use: Socially Substance use type: former substance user and marijuana Current gender identity: female Do you feel safe at home: Yes Do you feel safe in your relationship?: Yes Exam Narrative Exam Narrative: GEN: awake, alert, oriented 3. Pleasant, well groomed, interactive. HEAD: Normocephalic, atraumatic ENT: Mucous membranes moist, oropharynx unremarkable, External ear exam unremarkable EYES: PERRL, EOMI NECK: Full ROM, no MAURI, no menigismus CHEST/RESP: Nontender, clear to auscultation bilateral, no wheeze/rhonchi/rales CARDIOVASCULAR: RRR, no murmur, rub flores. 2+ Rad pulse bilateral EXT: Full ROM, no edema, no rash, no cords appreciated. No asymmetry. Neuro: Grossly normal neurologic exam, conversant, interactive. Psych: Speech fluent, thoughts congruent, affect normal Course Vital Signs Vital signs: Vital Signs Temperature 36.6 C 12/24/19 16:41 Pulse 90 12/24/19 16:41 Respiratory Rate 16 12/24/19 16:41 Blood Pressure 129/75 12/24/19 16:41 Pulse Oximetry 96 12/24/19 16:41 Temperature 36.6 C 12/24/19 16:41 Temperature Source Temporal Artery Scan 12/24/19 16:41 Pulse 90 12/24/19 16:41 Respiratory Rate 16 12/24/19 16:41 Respiratory Effort 12/24/19 16:44 Blood Pressure 129/75 12/24/19 16:41 Blood Pressure Position Supine 12/24/19 16:41 Pulse Oximetry 96 12/24/19 16:41 Oxygen Delivery Method Room Air 12/24/19 16:41 Oxygen Flow Rate 0 12/24/19 16:41
[2019-12-24] MEDS: Methocarbamol 500 MG TAB PO (17:25)
[2019-12-24] MEDS: Acetaminophen 325 MG TAB 650 MG PO (17:25)
--- NOTE | 2019-12-24 17:57 | NUR.NOTE ---
pt chose not to stay for vascular ultrasound. corine signed. dr gomez
== END 2019-12-24 17:59 | disposition left against medical advice (07) ==
PROVIDERS: Emergency Provider Emergency Medicine; PCP Nurse Practitioner Family
DX: M79.604 Pain in right leg (principal); Z53.29 Procedure and treatment not carried out because of patient's decision for other reasons; Z86.718 Personal history of other venous thrombosis and embolism
CPT/HCPCS: 99283

== ENCOUNTER 2019-12-25 02:16 | Emergency (ER) | payer MEDICAID, SELFPAY ==
--- NOTE | 2019-12-25 02:15 | DI.US_ITS ---
EXAM: US LOWER EXTREMITY VENOUS RT CLINICAL HISTORY: eval for dvt TECHNIQUE: Right lower extremity venous ultrasound performed using grayscale, color-flow, and spectr al Doppler analysis. COMPARISON: No exams were available for comparison FINDINGS: The right common femoral, femoral and popliteal veins demonstrate normal compressibility, augmentatio n, and color Doppler. The posterior tibial veins are patent. The saphenofemoral junction is unremark able. There is no evidence of a Velasquez cyst. There is a large hematoma in the soft tissues a anterio r and superior to the knee. It measures 6 x 3.7 x 3.1 cm. IMPRESSION: 1. No DVT. 2. Large soft tissue hematoma anterior and superior to the patella. DATA REPOSITORY:
--- NOTE | 2019-12-25 02:15 | DI.RAD_ITS ---
EXAM: XR KNEE RT 4V AP,LAT,LAUREN,PAT CLINICAL HISTORY: fall, large anterior hematoma. TECHNIQUE: 2D digital imaging was performed. COMPARISON: CR RIGHT KNEE 3 VIEWS from 11/02/2012 FINDINGS: BONES: No acute fracture is present. No bony destructive lesion is seen. JOINTS: The knee is normally aligned. No joint effusion is seen. SOFT TISSUE: There is a large hematoma in the soft tissues anterior and medial to the knee. IMPRESSION: Large soft tissue hematoma. No fracture or dislocation. DATA REPOSITORY: RADIATION DOSE DELIVERED:
[2019-12-25 02:21] VITALS: BP 129/78; PULSE 81; RESP 18; TEMP 36.6; O2SAT 98
--- NOTE | 2019-12-25 02:27 | W.ED.GENAD ---
Discharge Plan Disposition Patient Disposition: HOME Condition: Good Discharge Details Clinical Impression: Acute pain of right knee, Traumatic hematoma of right knee Primary Care Provider: Genaro Bonilla ED Provider: Aris Meng Home Meds and New Rx's Prescriptions: Continued nystatin 100,000 unit/gram cream 1 applic topical BID RF: 0 folic acid 1 mg tablet 1 mg PO DAILY RF: 0 escitalopram oxalate [Lexapro] 20 mg Tablet 20 mg PO DAILY RF: 0 aripiprazole [Abilify] 5 mg Tablet 5 mg PO DAILY RF: 0 omeprazole 20 mg capsule,delayed release(DR/EC) 20 mg PO DAILY RF: 0 enoxaparin 80 mg/0.8 mL Syringe 80 mg subcut Q12H Qty: 60 RF: 0 levothyroxine 50 mcg tablet 75 mcg PO DAILY Qty: 0 RF: 0 Discharge Instructions Instructions: Knee Pain (ED), Hematoma (ED) Additional Instructions: At this time there is no evidence of fracture on your knee or blood clot in your vessels. You do have a large notable clot in front of your patella secondary to the fall/trauma. This will cause significant pain and pressure is time goes on. This will reabsorb but it will take time. Please keep it wrapped in an Lionel wrap, apply ice for the next 24 hours and then switch to heat to help with the reabsorption. Please take 1000 mg of Tylenol every 6 hours to help with the pain. Monitor closely for any changes in symptoms including worsening pain, redness, fever or chills, as this could demonstrate evidence of a change in the hematoma, as well as potential infection. If you notice any worsening of your symptoms, or any new symptoms such as vomiting, diarrhea, fever, chills, shortness of breath, chest pain, numbness, weakness, or fainting , please return immediately to the emergency department for reevaluation. Please follow up with your primary care provider as soon as possible for reassessment and reevaluation. As always, it was a pleasure participating in your medical care today. 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 She is actually here earlier today with complaint of pain in her right calf, she is supposed to get an ultrasound while here in the ED unfortunately she left AMA and did not have completion of her work-up. This evening when she was at home she accidentally tripped and fell and landed on her right knee. Notable pain at the time. She has had notable pain and swelling since then, called EMS for further evaluation and transfer to the ED. Currently the patient states that her only pain is in her knee, she has worsening of her pain with movement. She denies missing any of her recent Lovenox dosing. She has no other complaints at this time. No other modifying factors. Physical exam demonstrates notable hematoma of the patella with significant swelling pain and tenderness. No pain or tenderness in the posterior aspect. We will get an x-ray of the knee to evaluate for fracture, we will complete your previous work-up with ultrasonography to evaluate for clot which I do feel unlikely at this time. We will give IM morphine and/or Tylenol for pain control. 3:53 AM Patient's imaging has returned and per virtual radiology no evidence of acute fracture, no dislocation, but notable obvious soft tissue hematoma anteriorly to the patella and the knee. At this time there is no evidence of infection, no signs of compartment syndrome, patient's pain is tolerable. She has been offered crutches for home use. No evidence of blood clot per virtual radiology on ultrasound of the lower extremity. At this time signs and symptoms are clinically consistent with hematoma, with no evidence of vascular compromise or infectious etiology. Recommendations for ice wrap, ice, eventual transition to heat, maximum dose Tylenol. Discussed red flags which to return. I have extensively reviewed the treatment plan and discharge instructions with the patient. I have addressed all patient concerns at this time. The patient was made aware of what symptoms to monitor for that would warrant a return to the emergency department. Discussed the plan with the patient, they demonstrate verbal understanding and agreement with our assessment and plan at this time. FINDINGS: Bones/joints: No acute fracture or dislocation. No joint effusion. Mild degenerative changes noted Soft tissues: Severe swelling anteriorly and medially IMPRESSION: Severe/large soft tissue hematoma anteriorly. No acute fracture or dislocation Thank you for allowing us to participate in the care of your patient. Dictated and Authenticated by: Geovany Saldivar MD 12/25/2019 3:11 AM Eastern Time ([place] & [place]) IMPRESSION: No evidence of deep vein thrombosis. Large soft tissue hematoma adjacent to the patella Thank you for allowing us to participate in the care of your patient. Dictated and Authenticated by: Geovany Saldivar MD HPI General Date/Time Provider Initiated Documentation: 12/25/19 02:27. HPI Narrative: 64-year-old female with past medical history of pulmonary embolisms and DVTs on chronic Lovenox, as well as PTSD, hypothyroidism, who presents today for evaluation of right knee pain. She is actually here earlier today with complaint of pain in her right calf, she is supposed to get an ultrasound while here in the ED unfortunately she left AMA and did not have completion of her work-up. This evening when she was at home she accidentally tripped and fell and landed on her right knee. Notable pain at the time. She has had notable pain and swelling since then, called EMS for further evaluation and transfer to the ED. Currently the patient states that her only pain is in her knee, she has worsening of her pain with movement. She denies missing any of her recent Lovenox dosing. She has no other complaints at this time. No other modifying factors. She denies hitting her head, she denies any other pain in her body or loss of consciousness. Related Data Home Medications Medication Instructions Recorded Confirmed aripiprazole [Abilify] 5 mg PO DAILY 06/23/18 12/25/19 escitalopram oxalate [Lexapro] 20 mg PO DAILY 06/23/18 12/25/19 omeprazole 20 mg PO DAILY 08/12/19 12/25/19 enoxaparin 80 mg SUBCUT Q12H #60 ml 08/13/19 12/25/19 levothyroxine 75 mcg PO DAILY #0 tab 08/13/19 12/25/19 nystatin 100,000 unit/gram topical 1 applic TOPICAL BID 12/19/19 12/25/19 cream folic acid 1 mg PO DAILY 12/24/19 12/25/19 Previous Rx's Medication Instructions Recorded enoxaparin 80 mg SUBCUT Q12H #60 ml 08/13/19 levothyroxine 75 mcg PO DAILY #0 tab 08/13/19 Allergies Allergy/AdvReac Type Severity Reaction Status Date / Time Sulfa (Sulfonamide AdvReac Intermediate headache/ Unverified 12/25/19 02:27 Antibiotics) itiching General Stated Complaint: Orthopedic ABIODUN: 3 Review of Systems All systems reviewed & are unremarkable except as noted in HPI and below PFSH Medical History Abnormal mammogram benign tissue Alcohol abuse Anxiety Depression History of tobacco abuse Hypothyroidism Ulcerative colitis Surgical History Hx of section Hx of colonoscopy Family History Father Heart disease Paternal Grandmother Cancer Maternal Grandmother Cancer Social History Smoking/Tobacco Use Status: Current every day Tobacco Type: cigarettes Years smoked: 46 Tobacco: How many years used: 46 Smoking risk assessment performed?: Yes Alcohol Intake: current Alcohol Intake frequency: 0-2 drinks per day Alcohol type: wine Drug use: Daily Substance use type: marijuana Current gender identity: female Do you feel safe at home: Yes Do you feel safe in your relationship?: Yes Exam Narrative Exam Narrative: 1.Const: Well-nourished, Well-developed, appearing stated age 2.Eyes: PERRL, no conjunctival injection, and symmetrical lids. 3.ENT: Atraumatic external nose and ears. Moist MM. Neck: Symmetric, trachea midline, No thyromegaly. 4.CVS: +S1/S2, No murmurs or gallops. Peripheral pulses 2+ and equal in all extremities. Brisk capillary refill in all extremities. 5.RESP: Unlabored respiratory effort. Clear to auscultation bilaterally. No wheezes rales or rhonchi 6.GI: Soft, Nontender/Nondistended, No hepatosplenomegaly. No guarding or rebound. 7.MSK: Normocephalic, right knee demonstrates notable hematoma anteriorly over the patella. With significant tenderness over this. No pain or tenderness in the tibial plateau or fibula. Range of motion is limited secondary to pain. No posterior knee pain or popliteal pain. No calf tenderness. Dorsalis pedis posterior tibial pulse +2 bilaterally, sensation intact. No significant thigh tenderness. No warmth or redness. 8.Skin: Warm, Dry. Notable hematoma on the right knee 9.Neuro: water supervisor II-XII grossly intact. Sensation grossly intact, no focal neurologic deficits. 10.Psych: (AAO) x3. Appropriate mood and affect Course Vital Signs Vital signs: Vital Signs Temperature 36.6 C 12/25/19 02:21 Pulse 81 12/25/19 02:21 Respiratory Rate 18 12/25/19 02:21 Blood Pressure 129/78 12/25/19 02:21 Pulse Oximetry 98 12/25/19 02:21 Temperature 36.6 C 12/25/19 02:21 Temperature Source Temporal Artery Scan 12/25/19 02:21 Pulse 81 12/25/19 02:21 Respiratory Rate 18 12/25/19 02:21 Respiratory Effort Non-Labored 12/25/19 02:25 Blood Pressure 129/78 12/25/19 02:21 Blood Pressure Position Supine 12/25/19 02:21 Pulse Oximetry 98 12/25/19 02:21 Oxygen Delivery Method Room Air 12/25/19 02:21 Oxygen Flow Rate 0 12/25/19 02:21 Pain Level 10 12/25/19 02:21
[2019-12-25] MEDS: Acetaminophen 500 MG TAB 1000 MG PO (02:42)
--- NOTE | 2019-12-25 03:12 | DI.VRAD_ITS ---
PROCEDURE INFORMATION: Exam: XR Left Knee Exam date and time: 12/25/2019 2:25 AM Age: 64 years old Clinical indication: Other: Fall, right knee pain, large anterior hematoma TECHNIQUE: Imaging protocol: XR Left knee. Views: 4 or more views. COMPARISON: No relevant prior studies available. FINDINGS: Bones/joints: No acute fracture or dislocation. No joint effusion. Mild degenerative changes noted Soft tissues: Severe swelling anteriorly and medially IMPRESSION: Severe/large soft tissue hematoma anteriorly. No acute fracture or dislocation Dictated and Authenticated by: Geovany Saldivar MD. Ordering:SHWETA Hurst MD
--- NOTE | 2019-12-25 03:43 | DI.VRAD_ITS ---
PROCEDURE INFORMATION: Exam: US Duplex Right Lower Extremity Veins, Limited Exam date and time: 12/25/2019 3:35 AM Age: 64 years old Clinical indication: Other: Eval for dvt TECHNIQUE: Imaging protocol: Real-time Duplex ultrasound of the Right Lower Extremity with 2-D parsons scale, color Doppler flow and spectral waveform analysis with image documentation. Limited exam was focused on the right lower extremity veins. COMPARISON: US extremity venous BI 10/07/2018 4:02 PM FINDINGS: Right deep veins: Unremarkable. The common femoral, femoral, proximal profunda femoral and popliteal veins are patent without thrombus. Normal Doppler waveforms. Normal compressibility and/or augmentation response. Right superficial veins: Unremarkable. Saphenofemoral junction is patent without thrombus. Soft tissues: Large hematoma anteriorly measuring at least 6 x 3.7 x 3.1 cm in the suprapatellar region IMPRESSION: No evidence of deep vein thrombosis. Large soft tissue hematoma adjacent to the patella Dictated and Authenticated by: Geovany Saldivar MD. Ordering:SHWETA Hurst MD
[2019-12-25 04:30] VITALS: BP 102/68; PULSE 98; RESP 16; O2SAT 94
== END 2019-12-25 05:35 | disposition home or self-care (01) ==
LOC: ER 04:06
PROVIDERS: Emergency Provider Student in an Organized Health Care Education/Training Program; PCP Nurse Practitioner Family
DX: S80.01XA Contusion of right knee, initial encounter (principal); W01.0XXA Fall on same level from slipping, tripping and stumbling without subsequent striking against object, initial encounter; Z86.718 Personal history of other venous thrombosis and embolism; Z79.01 Long term (current) use of anticoagulants
CPT/HCPCS: 96372; 99285; 73564; 93971; 99284

== ENCOUNTER 2019-12-28 09:14 | Emergency (ER) | payer MEDICAID, SELFPAY ==
[2019-12-28 09:18] VITALS: BP 133/85; PULSE 106; RESP 18; TEMP 37.1; O2SAT 98
--- NOTE | 2019-12-28 09:45 | DI.US_ITS ---
EXAM: US LOWER EXTREMITY VENOUS RT CLINICAL HISTORY: Hx of dvt, increasing pain/swelling TECHNIQUE: Right lower extremity venous ultrasound performed using grayscale, color-flow, and spectr al Doppler analysis. COMPARISON: US US LOWER EXTREMITY VENOUS RT from 12/25/2019 FINDINGS: The right common femoral, femoral and popliteal veins demonstrate normal compressibility, augmentatio n, and color Doppler. The posterior tibial veins are patent. The saphenofemoral junction is unremark able. There is no evidence of a Velasquez cyst. Persistent right anterior knee hematoma IMPRESSION: No DVT. Evolving right anterior soft tissue hematoma. DATA REPOSITORY:
--- NOTE | 2019-12-28 09:57 | ED.GENADUL_ITS ---
Discharge Plan Disposition Patient Disposition: HOME Condition: Stable Discharge Details Clinical Impression: Traumatic hematoma of right knee Primary Care Provider: Genaro Bonilla ED Provider: George Fu Home Meds and New Rx's Prescriptions: New oxycodone-acetaminophen [Percocet] 5-325 mg tablet 1 tab PO Q8H PRNQty: 8 RF: 0 Continued nystatin 100,000 unit/gram cream 1 applic topical BID RF: 0 folic acid 1 mg tablet 1 mg PO DAILY RF: 0 escitalopram oxalate [Lexapro] 20 mg Tablet 20 mg PO DAILY RF: 0 aripiprazole [Abilify] 5 mg Tablet 5 mg PO DAILY RF: 0 omeprazole 20 mg capsule,delayed release(DR/EC) 20 mg PO DAILY RF: 0 enoxaparin 80 mg/0.8 mL Syringe 80 mg subcut Q12H Qty: 60 RF: 0 levothyroxine 50 mcg tablet 75 mcg PO DAILY Qty: 0 RF: 0 Discharge Instructions Instructions: Knee Pain (ED), Hematoma (ED) Additional Instructions: Ultrasound was negative for DVT. As we discussed, Percocet as directed, may cause drowsiness and/or constipation. Rest, elevate, cool and/or warm compresses every 2 hours for 20 minutes. Wear Lionel wrapping as needed, advance activity as tolerated. Use cane as needed, advance activity as tolerated. Please watch for new or worsening symptoms and return to the ER for any concerns. I do recommend reaching out your primary care provider later today or tomorrow for prompt outpatient reevaluation. I have given you the name and number of our local orthopedic team who I would reach out to if you are not improving in the next 3-5 days with conservative therapy. Referrals: Schuyler Huitron MD [ [facility] STAFF PHYSICIAN] - Medical Decision Making 64-year-old female, seen in the ER 3 days ago and diagnosed with a traumatic hematoma of the right knee. She presents for increasing pain and concern of potential DVT. Clinically she has impressive ecchymosis to the right lower extremity associated with a moderate-sized hematoma across the anterior aspect of the knee. Neuro, vascular, tendon intact. No signs of infection. She has normal pedal pulse and normal capillary refill. Discussed options. Patient declines CT imaging of her knee as she has little concern for acute fracture. She is concerned about potential DVT and pain control. I do not believe that laboratory values are indicated as they will likely not change the outcome of this visit. We will give a single Percocet and obtain a repeat ultrasound. Patient is comfortable with this plan. It should be noted that when she presented her heart rate was 106, during my evaluation it was in the 90s. Ultrasound obtained and resulted, no DVT, there is an evolving right anterior soft tissue hematoma. Discussed results with patient, she reports no significant change of her discomfort. We will give a second Percocet. Discussed options with patient, she would prefer to be discharged home. We discussed crutches versus cane versus walker. She believes that a cane will likely be the best for her. Physical therapy consultation pending. Patient understands it may be over an hour before they can come down to the ER and she is willing to wait. Lionel wrap was reapplied. Patient does report moderate relief with the second Percocet. PT came to the ER for evaluation, please see their note. Patient was able to ambulate slowly but steadily using a cane. They do feel as though discharge with a cane and pain control is safe and reasonable. Patient would prefer this. I have contacted care management to see if they are able to help her obtain a cane. Care management called back and they recommended obtaining cane [id number] at a medical supply store. Medical Records Medical records reviewed: Yes I reviewed the patient's medical records. Imaging Data Radiologic Study: Attestation: I personally reviewed and interpreted this imaging study as follows: Imaging: Ultrasound Radiologist's impression: Right lower extremity, no DVT. Evolving right anterior soft tissue hematoma HPI General Mode of arrival: ambulatory . Date/Time Provider Initiated Documentation: 12/28/19 09:14 . Limitations to Documentation: no limitations . Information obtained by: patient . HPI Narrative: This is a 64-year-old female with past medical history of inclusion body, depression, thyroid disease, ulcerative colitis, alcohol abuse, history of DVT and PE, currently taking Lovenox twice daily presenting to the ER for reevaluation of a right leg injury. Patient was seen in the ER 3 days ago status post a mechanical fall. At that time she had a x-ray and ultrasound that did not reveal any obvious fracture, dislocation, and DVT. She was diagnosed with a traumatic hematoma of the right knee, Lionel wrap applied, and subsequently discharged. She has not followed up with her primary care provider yet. She has been wearing her Lionel wrap and taking [id number] Tylenol with mild relief. Since her last visit she denies any fever, chest pain, shortness of breath, additional injury, numbness, tingling, weakness. She is able to bear weight but the bruising, pain, swelling has all increased. Her primary concern is that of pain control and the potential for reoccurring DVT. Related Data Home Medications Medication Instructions Recorded Confirmed aripiprazole [Abilify] 5 mg PO DAILY 06/23/18 12/28/19 escitalopram oxalate [Lexapro] 20 mg PO DAILY 06/23/18 12/28/19 omeprazole 20 mg PO DAILY 08/12/19 12/28/19 enoxaparin 80 mg SUBCUT Q12H #60 ml 08/13/19 12/28/19 levothyroxine 75 mcg PO DAILY #0 tab 08/13/19 12/28/19 nystatin 100,000 unit/gram topical 1 applic TOPICAL BID 12/19/19 12/28/19 cream folic acid 1 mg PO DAILY 12/24/19 12/28/19 oxycodone-acetaminophen [Percocet] 1 tab PO Q8H PRN #8 tab 12/28/19 Previous Rx's Medication Instructions Recorded enoxaparin 80 mg SUBCUT Q12H #60 ml 08/13/19 levothyroxine 75 mcg PO DAILY #0 tab 08/13/19 oxycodone-acetaminophen [Percocet] 1 tab PO Q8H PRN #8 tab 12/28/19 Allergies Allergy/AdvReac Type Severity Reaction Status Date / Time Sulfa (Sulfonamide AdvReac Intermediate headache/ Unverified 12/28/19 09:26 Antibiotics) itiching General Stated Complaint: Orthopedic ABIODUN: 3 Review of Systems Constitutional Constitutional: Denies fever(s) and Denies weakness Cardiovascular Cardiovascular: Denies chest pain and Denies dyspnea Respiratory Respiratory: Denies cough and Denies dyspnea Musculoskeletal Musculoskeletal: Reports arthralgias, Denies numbness, Reports stiffness and Denies tingling Integumentary/Breasts Skin/Breast: Denies erythema Neurologic Neurologic: Denies numbness, Denies tingling and Denies weakness Hematologic/Lymphatic Hematologic/Lymphatic: Reports easy bleeding and Reports easy bruising [facility] Medical History Abnormal mammogram benign tissue Alcohol abuse Anxiety Depression History of tobacco abuse Hypothyroidism Ulcerative colitis Surgical History Hx of section Hx of colonoscopy Family History Father Heart disease Paternal Grandmother Cancer Maternal Grandmother Cancer Social History Smoking/Tobacco Use Status: Current every day Tobacco Type: cigarettes Years smoked: 46 Tobacco: How many years used: 46 Smoking risk assessment performed?: Yes Alcohol Intake: current Alcohol Intake frequency: 0-2 drinks per day Alcohol type: wine Drug use: Daily Substance use type: marijuana Current gender identity: female Do you feel safe at home: Yes Do you feel safe in your relationship?: Yes Exam Const General: cooperative, healthy appearing, comfortable and no acute distress Orientation: alert and awake [facility] Head: normal to inspection, normocephalic and atraumatic Mouth: moist mucous membranes Eyes Conjunctivae: conjunctivae normal Sclera: sclerae normal Neck Neck: normal visual inspection, full ROM, trachea midline and supple Resp Effort & Inspection: normal respiratory effort and able to speak in complete sentences Auscultation: clear to auscultation bilaterally Cardio Rate: regular rate Rhythm: regular rhythm Skin General skin exam: no rashes or lesions noted Neuro General: patient alert, patient awake, moves all extremities and no focal motor deficits Cognition: normal cognition Speech: speech normal Gait: antalgic Motor: muscle tone normal throughout and strength 5/5 throughout Sensory Exam: no sensory deficits noted Extrem Right upper extremity: normal to inspection and full ROM Left upper extremity: normal to inspection and full ROM Right lower extremity: normal capillary refill and knee Details: abnormal to inspection, tenderness, swelling, abnormal ROM, knee ligament exam normal and ecchymosis; no unusual warmth Left lower extremity: normal to inspection, full ROM and normal capillary refill Other: Right lower extremity as follows. Right hip unremarkable. Full range of motion, nontender. Right knee held in near complete extension. Limited flexion secondary to discomfort. There is a moderate anterior hematoma, skin is intact. The hematoma does extend superiorly into the anterior leg. She has diffuse ecchymosis extends from the proximal right lower extremity distal to near the ankle. The ecchymosis around the knee is in a horizontal fashion that would be consistent with the Lionel wrapping. There is 1+ swelling-edema across the lower aspect of the extremity and foot. Ankle, foot, nontender, full range of motion, neuro, vascular, tendon intact. Normal capillary refill and normal dorsalis pedal pulse. She has diffuse discomfort over her entire knee but worse across the anterior aspect. There is no warmth or erythema. Knee is stable. Patient was witnessed ambulating with antalgic gait here into the ER. Psych Appearance: grossly normal Mental Status: mental status grossly normal Course Vital Signs Vital signs: Vital Signs Temperature 37.1 C 12/28/19 09:18 Pulse 106 H 12/28/19 09:18 Respiratory Rate 18 12/28/19 09:18 Blood Pressure 133/85 12/28/19 09:18 Pulse Oximetry 98 12/28/19 09:18 Temperature 37.1 C 12/28/19 09:18 Temperature Source Skin 12/28/19 09:18 Pulse 106 H 12/28/19 09:18 Respiratory Rate 18 12/28/19 09:18 Respiratory Effort 12/28/19 09:25 Blood Pressure 133/85 12/28/19 09:18 Blood Pressure Position Sitting 12/28/19 09:18 Pulse Oximetry 98 12/28/19 09:18 Oxygen Delivery Method Room Air 12/28/19 09:18 Oxygen Flow Rate 0 12/28/19 09:18 Pain Level 10 12/28/19 09:18 Comment ice first 2 days - now applying heat 12/28/19 09:18
[2019-12-28] MEDS: oxyCODONE 5 mg/Acetaminophen 325 mg TAB 1 TAB PO ×2 (10:06→11:28)
[2019-12-28 11:21] VITALS: PULSE 90; O2SAT 96
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
== END 2019-12-28 14:20 | disposition home or self-care (01) ==
PROVIDERS: Emergency Provider Physician Assistant; PCP Nurse Practitioner Family
DX: S80.01XA Contusion of right knee, initial encounter (principal); W18.39XA Other fall on same level, initial encounter; Z79.01 Long term (current) use of anticoagulants; Z86.718 Personal history of other venous thrombosis and embolism
CPT/HCPCS: 97162; 99284; 93971

== ENCOUNTER 2020-02-06 19:11 | Outpatient (REF) | payer MEDICAID, SELFPAY ==
[2020-02-09 21:24] LABS: COVID-19 RT-PCR Result NEGATIVE (Negative)
== END 2020-02-06 19:31 ==
LOC: NCHCN 19:11
PROVIDERS: PCP Nurse Practitioner Family; Visit Provider Nurse Practitioner Family
DX: R53.83 Other fatigue (principal); R51.9 Headache, unspecified
CPT/HCPCS: U0003

== ENCOUNTER 2020-02-10 04:21 | Emergency (ER) | payer MEDICAID, SELFPAY ==
[2020-02-10 03:49] VITALS: BP 125/81; PULSE 85; RESP 16; TEMP 36.2; O2SAT 99
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
[2020-02-10] MEDS: Normal Saline 1,000 ML 1000 ML IV (04:12)
[2020-02-10] MEDS: Prochlorperazine 10 MG/2 ML VIAL IVP (04:13)
[2020-02-10] MEDS: Ketorolac 30 MG/ML VIAL 15 MG IVP (04:13)
--- NOTE | 2020-02-10 04:27 | DI.CT_ITS ---
EXAM: CT HEAD WO CLINICAL HISTORY: left side headache. TECHNIQUE: Imaging Protocol: Axial computed tomography images with coronal and sagittal reformatted images were created and reviewed COMPARISON: CT HEAD WITHOUT CONTRAST from 07/07/2013 FINDINGS: Ventricles and Extra axial spaces: Normal in size and morphology for the patient's age. Hemorrhage: None. Cerebral parenchyma: There are areas of decreased attenuation in the white matter consistent with milton rovascular ischemic change. No acute territorial infarct. Midline shift: None. Brainstem/Cerebellum: Normal. Calvarium: Normal. Visualized Paranasal sinuses/Mastoids: There is complete opacification of the left sphenoid sinus and mucosal thickening in a hypoplastic right sphenoid sinus. There is opacification of several ethmoid air cells. There is mucosal thickening of the right maxillary sinus. The remaining visualized para nasal sinuses and mastoid air cells are clear. Soft Tissues: Unremarkable. IMPRESSION: 1. No acute intracranial process. 2. Paranasal sinusitis. The findings are most pronounced in the left sphenoid sinus. RADIATION DOSE DELIVERED: 671.25mGy.cm Total DLP DATA REPOSITORY: All CT scans at this facility are submitted to the National Radiology Data Registry (NRDR) Dose Index Registry (DIR) with the [employer] ([employer]). RADIATION OPTIMIZATION: All CT scans at this facility use at least one of these dose optimization te chniques: automated exposure control; mA and/or kV adjustment per patient size (includes targeted exa ms where dose is matched to clinical indication); or iterative reconstruction.
--- NOTE | 2020-02-10 04:53 | DI.VRAD_ITS ---
PROCEDURE INFORMATION: Exam: CT Head Without Contrast Exam date and time: 02/10/2020 4:04 AM Age: 64 years old Clinical indication: Headache not specified; Patient HX: Headache [id number], left frontal pain TECHNIQUE: Imaging protocol: Computed tomography of the head without contrast. Radiation optimization: All CT scans at this facility use at least one of these dose optimization techniques: automated exposure control; mA and/or kV adjustment per patient size (includes targeted exams where dose is matched to clinical indication); or iterative reconstruction. COMPARISON: CT HEAD WITHOUT CONTRAST 07/07/2013 8:57 PM FINDINGS: Brain: Decreased periventricular and subcortical attenuation compatible with mild chronic white matter ischemic change. No acute cerebrovascular accident. No acute intracranial hemorrhage. No mass, mass effect or midline shift. Cerebral ventricles: Prominent ventricles and sulci compatible with mild volume loss/atrophy. Bones/joints: No linear or depressed skull fracture. Paranasal sinuses: Sinusitis with near total opacification of the sphenoid sinus. Several opacified ethmoid air cells also noted along with mucosal thickening within the right maxillary sinus. Likely acute on chronic sinus disease. Mastoid air cells: Mastoid air cells are unremarkable as demonstrated. Vasculature: Atherosclerotic calcification intracranial vasculature without aneurysm. Soft tissues: Unremarkable. IMPRESSION: 1. No acute cerebrovascular accident. No acute intracranial hemorrhage. 2. Mild atrophy with chronic white matter ischemic change, similar to previous study. 3. Acute on chronic sinusitis, most pronounced within the sphenoid sinus. Dictated and Authenticated by: Cameron Huddleston MD. Ordering:MERRITT Weaver MD
== END 2020-02-10 06:23 | disposition home or self-care (01) ==
PROVIDERS: Emergency Provider Emergency Medicine; PCP Nurse Practitioner Family
DX: J01.31 Acute recurrent sphenoidal sinusitis (principal)
CPT/HCPCS: 96361; 96374; 96375; 99284; 70450; J0780; J1885

== ENCOUNTER 2020-03-14 16:14 | Inpatient (IN) | payer MEDICAID, SELFPAY ==
[2020-03-14] VITALS (9 sets, daily range): BP systolic 121–129; BP diastolic 73–108; PULSE 85–113; RESP 11–21; TEMP 36.4–36.6; O2SAT 95–100
--- NOTE | 2020-03-14 16:45 | RT.EKG_ITS ---
APPROVED REPORT Exam: Resting ECG Patient Location: E HR:102 bpm ECG Measurements Heart Rate 102 AXIS NE 126 P 41 QRSd 74 QRS 58 QT 386 T -75 QTc 503 Conclusion Sinus tachycardia...rate> 99 Prolonged QT interval...QTc >500mS. 1mm ST depression and T wave inversion V2-5. No STEMI.
--- NOTE | 2020-03-14 17:05 | ED.GENADUL_ITS ---
Discharge Plan Disposition Patient Disposition: [facility] INPATIENT Condition: Stable Discharge Details Clinical Impression: Abdominal pain, vomiting, and diarrhea, Hypokalemia, Abnormal EKG Admit Date/Time: 03/14/20 20:38 Admit Provider: Marshall Rose Attending Provider: Marshall Rose Primary Care Provider: Genaro Bonilla ED Provider: Ary Castillo Discharge Data Discharge Date/Time-TO BE ENTERED AT DEPARTURE: 03/14/20 21:54 Medical Decision Making 64-year-old female with a history of chronic alcohol abuse, anxiety, depression, hypothyroidism, pulmonary emboli on Lovenox presents for lower abdominal pain, vomiting and diarrhea for the past 10 days after stopping drinking alcohol. She had also admitted to loss of sense of taste but denies any known sick contacts. Covid test obtained. EKG on arrival notes a rate of 102, sinus with [address] depression in anterior leads but no STEMI. Heart rate 110s, remainder vitals within normal limits. She does not appear to demonstrate signs of withdrawal. Her abdomen is soft and very minimally tender across lower aspect. Differential diagnosis includes UTI, gastroenteritis, colitis, coronavirus, pyelonephritis. Will place an IV, bolus IV fluids, screening labs, urinalysis and CT chest abdomen pelvis. Labs reviewed. White blood cell count normal at 6. Lactate high at 3.8, suspect most likely due to dehydration, but also consider possible infectious source such as colitis or UTI. She otherwise does not appear septic. Potassium low at 2.5, will replete. Lipase 492. CT reviewed and notes chronic stable PEs but no acute PE. She also has findings consistent with cystitis and chronic colitis but no evidence of pancreatitis or acute colitis. Patient reassessed and her nausea is improved but she is still complaining of some pain. Will give a dose of pain medication and admit for electrolyte repletion, IV fluids, IV antibiotics, serial troponins and EKG. Case discussed with hospitalist accepts patient for admission. Urinalysis pending. Medical Records Medical records reviewed: Yes I reviewed the patient's medical records. Imaging Data Radiologic Study: Radiologist's impression: CT Angiography Chest With Contrast Exam date and time: 03/14/2020 5:05 PM Age: 64 years old Clinical indication: Patient HX: Vomiting, abd pain, ? pneumonia/pacreatitis TECHNIQUE: Imaging protocol: Computed tomographic angiography of the chest with intravenous contrast. 3D rendering (Not supervised by radiologist): MIP and/or 3D reconstructed images were created by the technologist. Radiation optimization: All CT scans at this facility use at least one of these dose optimization techniques: automated exposure control; mA and/or kV adjustment per patient size (includes targeted exams where dose is matched to clinical indication); or iterative reconstruction. Contrast material: [id number]; Contrast volume: 100 ml; Contrast route: INTRAVENOUS (IV); COMPARISON: CT CHEST PE CTA 11/14/2019 11:58 PM FINDINGS: Pulmonary arteries: Contrast opacifies the pulmonary artery and its branch vessels satisfactorily and there are no new large filling defects to suggest acute pulmonary emboli. Stable appearance of thin linear thrombus in the right lower lobe pulmonary artery and in segmental branches of the left lower lobe pulmonary arteries. Due to significant respiratory motion degradation artifact, any new bilateral lower lobe segmental and subsegmental arteries are difficult to assess. Aorta: Unremarkable. No aortic aneurysm. No aortic dissection. Lungs: The posterior right lower lobe old infarct has decreased in size. The posterolateral right upper lobe and the superior and posterior segments of left lower lobe foci of old peripheral infarct have remained stable. No new consolidations, pulmonary nodules or opacities. Pleural space: No new pleural effusions or pneumothoraces. Heart: Unremarkable. No cardiomegaly. No pericardial effusion. Lymph nodes: Unremarkable. No enlarged lymph nodes. Bones/joints: Stable superior endplate compression deformity T12 with roughly 50% loss of height. No new thoracic wedge compression deformity. Soft tissues: Unremarkable. IMPRESSION: 1. Stable treated chronic bilateral lower lobe filling defects from pulmonary embolism. Resolving right lower lobe posterior wedge infarct. Stable appearance of prior infarcts in the left lower lobe and posterolateral right upper lobe. No acute pulmonary embolism. 2. No acute pulmonary finding. CT Angiography Abdomen With Contrast Exam date and time: 03/14/2020 5:05 PM Age: 64 years old Clinical indication: Patient HX: Vomiting, abd pain, ? pneumonia/pacreatitis TECHNIQUE: Imaging protocol: Computed tomographic angiography images of the abdomen with intravenous contrast material. 3D rendering (Not supervised by radiologist): MIP and/or 3D reconstructed images were created by the technologist. Radiation optimization: All CT scans at this facility use at least one of these dose optimization techniques: automated exposure control; mA and/or kV adjustment per patient size (includes targeted exams where dose is matched to clinical indication); or iterative reconstruction. Contrast material: [id number]; Contrast volume: 100 ml; Contrast route: INTRAVENOUS (IV); COMPARISON: CT CHEST PE CTA 11/14/2019 11:58 PM FINDINGS: Aorta: No aortic aneurysm. No aortic dissection. Celiac trunk and mesenteric arteries: No occlusion or significant stenosis. Renal arteries: No occlusion or significant stenosis. Liver: Stable segment 7 lateral punctate hypodensity likely representing a small hepatic cyst or hemangioma. Gallbladder and bile ducts: Normal. No calcified stones. No ductal dilation. Pancreas: Normal pancreas. No peripancreatic fat stranding or fluid collection. Spleen: Normal. No splenomegaly. Adrenals: Normal. No mass. Kidneys and ureters: Normal. No hydronephrosis. Stomach and bowel: Diffuse fatty infiltration of the wall of the entire colon suggestive of chronic inflammatory bowel disease. No acute colitis. No bowel obstruction. Appendix: Normal appendix. No appendicitis. Lymph nodes: Unremarkable. No enlarged lymph nodes. Intraperitoneal space: Unremarkable. No free air. No significant fluid collection. Bladder: Bladder mucosal enhancement suggestive of cystitis. Bones/joints: Superior endplate deformity at L3 with roughly 25% loss of height. Correlate with site of pain to determine if this is a new or subacute fracture. Soft tissues: Anterior abdominal wall multiple sites of injections of medications. IMPRESSION: 1. No evidence for pancreatitis. 2. Enhancement of the urinary bladder mucosa suggestive of cystitis. 3. Fatty infiltration of the colon wall suggestive of chronic colitis such as inflammatory bowel disease. No acute colitis. 4. Superior L3 endplate deformity with 25% loss of height. Correlate with site of pain to determine if this is a new or subacute insufficiency fracture. ECG Data Attestation: I personally reviewed and interpreted this ECG (s) as follows: HPI General Mode of arrival: ambulatory . Date/Time Provider Initiated Documentation: 03/14/20 16:38 . Limitations to Documentation: no limitations . Information obtained by: patient . HPI Narrative: Patient is a 64-year-old female with a history of alcohol abuse, anxiety, depression, hypothyroidism, pulmonary embolism who gives herself Lovenox injections presents for abdominal pain, vomiting and diarrhea for the past week. She states she quit drinking alcohol 10 days ago and went to a withdrawal. But denies any seizure activity. She states since stopping alcohol she has had lower abdominal pain, vomiting and diarrhea. She states the diarrhea has since resolved. She states she has vomiting multiple times daily and it is usually clear or bile. She denies any hematemesis or hematochezia. She states her lower abdominal pain is aching and occasionally sharp but denies any aggravating or alleviating factors. She denies any fever, chest pain, shortness of breath, urinary symptoms, recent sick contacts. Related Data Home Medications Medication Instructions Recorded Confirmed aripiprazole [Abilify] 5 mg PO DAILY 06/23/18 03/14/20 escitalopram oxalate [Lexapro] 20 mg PO DAILY 06/23/18 03/14/20 omeprazole 20 mg PO DAILY 08/12/19 03/14/20 enoxaparin 80 mg SUBCUT Q12H #60 ml 08/13/19 03/14/20 folic acid 1 mg PO DAILY 12/24/19 03/14/20 levothyroxine 100 mcg PO DAILY 03/14/20 03/14/20 Previous Rx's Medication Instructions Recorded enoxaparin 80 mg SUBCUT Q12H #60 ml 08/13/19 Allergies Allergy/AdvReac Type Severity Reaction Status Date / Time Sulfa (Sulfonamide AdvReac Intermediate headache/ Unverified 03/14/20 20:41 Antibiotics) [facility] General Stated Complaint: [facility]Medical ABIODUN: 2 Review of Systems All systems reviewed & are unremarkable except as noted in HPI and below Constitutional Constitutional: Reports as per HPI, Denies chills and Denies fever(s) Eyes Eyes: Denies blurry vision ENT Ears, Nose, Mouth, and Throat: Denies dizziness, Denies sore throat and Denies throat swelling Cardiovascular Cardiovascular: Denies chest pain and Denies dyspnea Respiratory Respiratory: Denies cough and Denies dyspnea Gastrointestinal Gastrointestinal: Reports abdominal pain, Reports diarrhea and Reports vomiting Genitourinary Genitourinary: Denies hematuria and Denies dysuria Musculoskeletal Musculoskeletal: Denies back pain and Denies numbness Integumentary/Breasts Skin/Breast: Denies lesions and Denies rash Neurologic Neurologic: Denies dizziness, Denies localized weakness and Denies numbness Allergic/Immunologic Allergic/Immunologic: Denies throat swelling [facility] Medical History Alcohol abuse Anxiety Depression Hypothyroidism Pulmonary emboli Ulcerative colitis Surgical History Hx of section Hx of colonoscopy Family History Father Heart disease Paternal Grandmother Cancer Maternal Grandmother Cancer Social History Smoking/Tobacco Use Status: Current every day Tobacco Type: cigarettes Years smoked: 46 Tobacco: How many years used: 46 Smoking risk assessment performed?: Yes Alcohol Intake: current Alcohol Intake frequency: 0-2 drinks per day Alcohol type: wine Drug use: Daily Substance use type: marijuana Current gender identity: female Do you feel safe at home: Yes Do you feel safe in your relationship?: Yes Exam Const General: cooperative, healthy appearing and no acute distress HENMT Head: normal to inspection Face and sinus: normal facial exam Eyes General: appearance normal, both eyes and all related structures EOM: EOM intact bilaterally Neck Neck: normal visual inspection and No submandibular swelling Lymphatic: no lymphadenopathy noted Chest Chest: normal inspection of the chest and no tenderness Resp Effort & Inspection: normal respiratory effort and able to speak in complete sentences Auscultation: clear to auscultation bilaterally Cardio Rate: regular rate Rhythm: regular rhythm GI Inspection: normal to inspection Palpation: soft, not firm, not rigid and nontender Auscultation: normal bowel sounds Back/Spine/Pelvis Thoracic/Lumbar Spine: thoracic and lumbar spine normal to inspection Pelvis: no pain with anterior-posterior compression Skin General skin exam: no rashes or lesions noted Neuro General: patient alert, patient awake and patient oriented x3 Cognition: normal cognition Speech: speech normal Motor: muscle tone normal throughout Sensory Exam: no sensory deficits noted Extrem General: normal to inspection, full ROM, capillary refill normal, no calf tenderness bilaterally and no edema Psych Appearance: grossly normal Mental Status: mental status grossly normal Speech and Movement: speech and movement normal Affect: normal affect Course Vital Signs Vital signs: Vital Signs Temperature 97.9 F 03/14/20 16:53 Pulse 113 H 03/14/20 16:53 Respiratory Rate 16 03/14/20 16:53 Blood Pressure 129/73 03/14/20 16:53 Pulse Oximetry 98 03/14/20 16:53 Temperature 97.9 F 03/14/20 16:53 Temperature Source Skin 03/14/20 16:53 Pulse 113 H 03/14/20 16:53 Respiratory Rate 16 03/14/20 16:53 Respiratory Effort 03/14/20 17:02 Blood Pressure 129/73 03/14/20 16:53 Blood Pressure Position Sitting 03/14/20 16:53 Pulse Oximetry 98 03/14/20 16:53 Oxygen Delivery Method Room Air 03/14/20 16:53 Oxygen Flow Rate 0 03/14/20 16:53 Pain Level 0 03/14/20 16:53 Lab/Test Results Lab/Test Results: Laboratory Tests Range/Units 03/14/20 16:47 D-Dimer Cancelled
[2020-03-14 17:23] LABS: Abs Immature Grans 0.04 10^3/uL (0.0-0.06); Absolute Basophil Count 0.03 10^3/uL (0.0-0.2); Absolute Eosinophil Count 0.03 10^3/uL (0.0-0.7); Absolute Lymphocyte Count 1.85 10^3/uL (1.2-3.4); Absolute Monocyte Count 0.38 10^3/uL (0.1-0.8); Basophils % 0.4; Eosinophils % 0.4; HCT 50.7 % (36.0-46.0); HGB 17.8 g/dL (11.2-15.7); Immature Grans % 0.6; Lymphocytes % 26.7; MCH 36.6 pg (27.0-33.0); MCHC 35.1 % (32.0-36.0); MCV 104.3 fL (80-95); MPV 9.3 fL (8.0-11.0); Monocytes % 5.5; Neutrophils % 66.4; Nucleated RBC 0 %; Platelet Count 301 10^3/uL (130-400); RBC 4.86 10^6/uL (3.93-5.22); RDW 12.1 % (11.7-14.6); RDW-SD 47.2 fL; WBC 6.93 10^3/uL (4.4-10.8)
[2020-03-14 17:27] LABS: Lactate 3.8 mmol/L (0.6-1.4)
[2020-03-14 17:52] LABS: ALT 31 U/L (14-59); AST 40 U/L (15-37); Albumin 3.4 g/dL (3.4-5.0); Alkaline Phosphatase 130 U/L (46-116); Anion Gap 12.5 mmol/L (3-11); BUN 9 mg/dL (7-18); Bilirubin, Total 0.7 mg/dL (0.2-1.0); CO2 27.5 mmol/L (21.0-32.0); CREATININE 1.17 mg/dL (0.55-1.02); Calcium 9.7 mg/dL (8.5-10.1); Chloride 95 mmol/L (98-107); Estimated GFR 46.87 (mL/min/1.73m2); Glucose 148 mg/dL (74-106); Sodium 135 mmol/L (136-145); Total Protein 7.7 g/dL (6.4-8.2)
[2020-03-14 17:56] LABS: Potassium 2.5 mmol/L (3.5-5.1); Troponin I < 0.05 ng/mL (<0.06)
[2020-03-14 17:57] LABS: TSH (W/Ref FT4) 3.65 uIU/mL (0.36-3.74)
[2020-03-14 17:58] LABS: Lipase 492 U/L (73-393)
[2020-03-14] MEDS: Normal Saline 250 ML 500 ML IV (18:03)
[2020-03-14] MEDS: ACETAMINOPHEN 1,000 MG/100 ML BTL 400 MG IVPB (18:04)
[2020-03-14] MEDS: Normal Saline Flush 10 ML SYR IVP ×3 (18:58→23:47)
--- NOTE | 2020-03-14 18:59 | DI.CT_ITS ---
EXAM: CT CHEST PE ABD PELVIS W CLINICAL HISTORY: vomiting, abd pain. TECHNIQUE: Imaging Protocol: Axial CT angiography was performed with multi-slice acquisition and mu lti-planar and/or 3D reconstructions. CONTRAST MATERIAL: Intravenous: Omnipaque 350 Contrast volume:100 mL COMPARISON: CT CT ABDOMEN PELVIS W from 09/04/[address] ABDOMEN PELVIS W from 09/04/[address] CHEST PE CTA from 11/14/[address] CHEST PE CTA from 11/14/2019 FINDINGS: The examination is limited due to patient motion artifact. CHEST: Pulmonary Arteries: No new filling defects are seen to suggest acute pulmonary emboli. Stable thromb i are seen in the right lower lobe pulmonary artery and segmental branches of the left lower lobe pul monary arteries. Tracheobronchial tree: Patent where visualized. Mediastinum and Eli: No dominant adenopathy or fluid collection. Pulmonary parenchyma: The right lower lobe pulmonary infarct has decreased in size. The remaining ar eas of pulmonary infarction are stable. No new consolidations or pulmonary nodules or opacities are present. No architectural distortion. Pleura: No effusion or pneumothorax. Heart: The heart is not dilated. No coronary artery calcifications are seen. No pericardial effusion. Aorta: Thoracic aorta non-dilated. No dissection. Bones: Normal. ABDOMEN: Liver: Diffuse fatty infiltration of the liver. No measurable mass. Portal, Superior Mesenteric, and Splenic Veins: Unremarkable. Gallbladder and Biliary Tract: No radiodense calculus or dilation. Pancreas: Normal density, no abnormal calcifications or inflammatory process. Spleen: Normal. Adrenals: No masses seen. Kidneys: Normal size, contour and axis. No radiodense stones or obstructive uropathy. No masses seen. Abdominal Aorta: Abdominal portion non-dilated. Atherosclerosis. Bowel: No obstruction or bowel wall thickening. Appendix is unremarkable. Diffuse fatty infiltration of the wall of the colon. This can be seen with chronic diseases such as inflammatory bowel disease. No evidence of an acute inflammatory process. Peritoneal Cavity: No ascites, collection or mesenteric inflammatory response. Lymph Nodes: Within normal limits. Bones: Unremarkable. Soft Tissues: Several soft tissue round densities within the subcutaneous fat of the anterior abdomin al wall. These may reflect multiple sites of injections of medications. PELVIS: Bladder: Mild diffuse thickening and enhancement of the wall of the urinary bladder. This may be due to underdistention. An infectious or inflammatory process cannot be excluded. Reproductive Organs: Unremarkable as visualized. Lymph Nodes: Within normal limits. Bones: There is an old T12 compression deformity. There is a new compression deformity seen of the L 3 vertebral body. This is age indeterminate. There is loss of approximately 25 percent of the heigh t of the vertebral body noted. IMPRESSION: 1. Stable old filling defects from patient's prior pulmonary embolism. No new filling defects to sug gest acute pulmonary embolism are seen. 2. Stable and decrease in size of a old pulmonary infarcts. No new consolidations are seen. 3. Thickening and enhancement of the wall of the urinary bladder. This may reflect an inflammatory i nfectious cystitis. 4. Age-indeterminate L3 superior endplate compression deformity which is new since the prior CT scan of the abdomen and pelvis from 09/04/2018. There is loss of approximately 25 percent of the height of the vertebral body. RADIATION DOSE DELIVERED: 1,215.46mGy.cm Total DLP 1,215.46mGy.cm Total DLP DATA REPOSITORY: All CT scans at this facility are submitted to the National Radiology Data Registry (NRDR) Dose Index Registry (DIR) with the [employer] [place] [employer] ([employer]). RADIATION OPTIMIZATION: All CT scans at this facility use at least one of these dose optimization te chniques: automated exposure control; mA and/or kV adjustment per patient size (includes targeted exa ms where dose is matched to clinical indication); or iterative reconstruction.
[2020-03-14 19:00] LABS: Magnesium 1.9 mg/dL (1.8-2.4)
[2020-03-14] MEDS: Normal Saline - Diluent 50 ML VIAL IV (19:01)
[2020-03-14] MEDS: Omnipaque 350 MG/ML 100 ML BTL IJ (19:02)
[2020-03-14] MEDS: Potassium Chloride 20 MEQ TABCR 40 MEQ PO (19:14)
[2020-03-14] MEDS: POTASSIUM CHLORIDE 20 MEQ/100 ML BAG 50 MEQ IVPB (19:22)
--- NOTE | 2020-03-14 20:00 | DI.VRAD_ITS ---
PROCEDURE INFORMATION: Exam: CT Angiography Chest With Contrast Exam date and time: 03/14/2020 5:05 PM Age: 64 years old Clinical indication: Patient HX: Vomiting, abd pain, ? pneumonia/pacreatitis TECHNIQUE: Imaging protocol: Computed tomographic angiography of the chest with intravenous contrast. 3D rendering (Not supervised by radiologist): MIP and/or 3D reconstructed images were created by the technologist. Radiation optimization: All CT scans at this facility use at least one of these dose optimization techniques: automated exposure control; mA and/or kV adjustment per patient size (includes targeted exams where dose is matched to clinical indication); or iterative reconstruction. Contrast material: [id number]; Contrast volume: 100 ml; Contrast route: INTRAVENOUS (IV); COMPARISON: CT CHEST PE CTA 11/14/2019 11:58 PM FINDINGS: Pulmonary arteries: Contrast opacifies the pulmonary artery and its branch vessels satisfactorily and there are no new large filling defects to suggest acute pulmonary emboli. Stable appearance of thin linear thrombus in the right lower lobe pulmonary artery and in segmental branches of the left lower lobe pulmonary arteries. Due to significant respiratory motion degradation artifact, any new bilateral lower lobe segmental and subsegmental arteries are difficult to assess. Aorta: Unremarkable. No aortic aneurysm. No aortic dissection. Lungs: The posterior right lower lobe old infarct has decreased in size. The posterolateral right upper lobe and the superior and posterior segments of left lower lobe foci of old peripheral infarct have remained stable. No new consolidations, pulmonary nodules or opacities. Pleural space: No new pleural effusions or pneumothoraces. Heart: Unremarkable. No cardiomegaly. No pericardial effusion. Lymph nodes: Unremarkable. No enlarged lymph nodes. Bones/joints: Stable superior endplate compression deformity T12 with roughly 50% loss of height. No new thoracic wedge compression deformity. Soft tissues: Unremarkable. IMPRESSION: 1. Stable treated chronic bilateral lower lobe filling defects from pulmonary embolism. Resolving right lower lobe posterior wedge infarct. Stable appearance of prior infarcts in the left lower lobe and posterolateral right upper lobe. No acute pulmonary embolism. 2. No acute pulmonary finding. PROCEDURE INFORMATION: Exam: CT Angiography Abdomen With Contrast Exam date and time: 03/14/2020 5:05 PM Age: 64 years old Clinical indication: Patient HX: Vomiting, abd pain, ? pneumonia/pacreatitis TECHNIQUE: Imaging protocol: Computed tomographic angiography images of the abdomen with intravenous contrast material. 3D rendering (Not supervised by radiologist): MIP and/or 3D reconstructed images were created by the technologist. Radiation optimization: All CT scans at this facility use at least one of these dose optimization techniques: automated exposure control; mA and/or kV adjustment per patient size (includes targeted exams where dose is matched to clinical indication); or iterative reconstruction. Contrast material: [id number]; Contrast volume: 100 ml; Contrast route: INTRAVENOUS (IV); COMPARISON: CT CHEST PE CTA 11/14/2019 11:58 PM FINDINGS: Aorta: No aortic aneurysm. No aortic dissection. Celiac trunk and mesenteric arteries: No occlusion or significant stenosis. Renal arteries: No occlusion or significant stenosis. Liver: Stable segment 7 lateral punctate hypodensity likely representing a small hepatic cyst or hemangioma. Gallbladder and bile ducts: Normal. No calcified stones. No ductal dilation. Pancreas: Normal pancreas. No peripancreatic fat stranding or fluid collection. Spleen: Normal. No splenomegaly. Adrenals: Normal. No mass. Kidneys and ureters: Normal. No hydronephrosis. Stomach and bowel: Diffuse fatty infiltration of the wall of the entire colon suggestive of chronic inflammatory bowel disease. No acute colitis. No bowel obstruction. Appendix: Normal appendix. No appendicitis. Lymph nodes: Unremarkable. No enlarged lymph nodes. Intraperitoneal space: Unremarkable. No free air. No significant fluid collection. Bladder: Bladder mucosal enhancement suggestive of cystitis. Bones/joints: Superior endplate deformity at L3 with roughly 25% loss of height. Correlate with site of pain to determine if this is a new or subacute fracture. Soft tissues: Anterior abdominal wall multiple sites of injections of medications. IMPRESSION: 1. No evidence for pancreatitis. 2. Enhancement of the urinary bladder mucosa suggestive of cystitis. 3. Fatty infiltration of the colon wall suggestive of chronic colitis such as inflammatory bowel disease. No acute colitis. 4. Superior L3 endplate deformity with 25% loss of height. Correlate with site of pain to determine if this is a new or subacute insufficiency fracture. Dictated and Authenticated by: Molly Paniagua MD. Ordering:RONY Mcallister MD
--- NOTE | 2020-03-14 20:24 | W.PM.HP.N ---
Date of service: 03/14/20 Time of Service: 20:24 Assessment and Plan Assessment and plan (1) Vomiting: Status: Acute Assessment and plan: This presentation is nonspecific, but I think either pancreatitis or alcoholic gastritis are most likely, Could be nonspecific gastroenteritis. Doubt very much ACS, EKG findings likely related to electrolyte abnormalities. Plan: NPO, IVF, replace and track potassium, follow lipase, trend troponins, prn antiemetics. History of Present Illness History of Present Illness Chief Complaint: vomiting Narrative: 64 female alcoholic, last drink 2 weeks ago. Reports 2 weeks N/V (and diarrhea as well, though this latter has resolved), along with vague, mild and intermittent abdominal pain, mostly upper, some lower. Also c/o dysgeusia though no nikole loss of taste and no anosmia. In ER findings of note for K 2.5, Lipase 493, CT showing normal pancreas, fatty infiltration of colon c/w chronic colitis, and blader enhancement suggestive possible cystitis (patient has no urinary complaints, though U/A is pending at this time). EKG also shows nonspecific TW changes, mostly chest leads, with neg trop (and no c/o CP). Patient hs received KCL, IVF, phenergan and APAP. Admitted for further management. Review of Systems All systems reviewed & are unremarkable except as noted in HPI and below PFSH Medical History Alcohol abuse Anxiety Depression Hypothyroidism Pulmonary emboli Ulcerative colitis Surgical History Hx of section Hx of colonoscopy Family History Father Heart disease Paternal Grandmother Cancer Maternal Grandmother Cancer Social History Smoking/Tobacco Use Status: Current every day Tobacco Type: cigarettes Years smoked: 46 Tobacco: How many years used: 46 Smoking risk assessment performed?: Yes Alcohol Intake: current Alcohol Intake frequency: 0-2 drinks per day Alcohol type: wine Drug use: Daily Substance use type: marijuana Current gender identity: female Do you feel safe at home: Yes Do you feel safe in your relationship?: Yes Meds Home Medications and Allergies Home Medications Medication Instructions Recorded Confirmed Type aripiprazole [Abilify] 5 mg PO DAILY 05/01/19 12/18/20 History escitalopram oxalate [Lexapro] 20 mg PO DAILY 06/23/18 02/10/20 History omeprazole 20 mg PO DAILY 08/12/19 02/10/20 History enoxaparin 80 mg SUBCUT Q12H #60 ml 08/13/19 02/10/20 Rx levothyroxine 75 mcg PO DAILY #0 tab 08/13/19 02/10/20 Rx folic acid 1 mg PO DAILY 12/24/19 02/10/20 History amoxicillin-pot clavulanate 1 tab PO BID 02/10/20 02/10/20 History ondansetron 4 mg PO Q6H PRN 02/10/20 02/10/20 History Allergies Allergy/AdvReac Type Severity Reaction Status Date / Time Sulfa (Sulfonamide AdvReac Intermediate headache/ Unverified 03/14/20 17:02 Antibiotics) itiching Exam Narrative Exam Narrative: 129/80, 90-, 36.6, 11, 98% RA. HEENT atraumatic, anicteric; neck supple; lungs clear; heart RRR; abdomen + BS, soft, mild epigastric and RUG tenderness w/o rebound; extremities w/o edema; neuro Ox3, nonfocal Results Labs Result diagrams: 03/14/20 17:14 03/14/20 17:14 Labs: Laboratory Results - last 24 hr 03/14/20 03/14/20 03/14/20 16:47 17:14 17:14 WBC RBC Hgb Hct MCV MCH MCHC RDW Plt Count MPV Immature Gran % Neutrophils % Lymphocytes % Monocytes % Eosinophils % Basophils % Nucleated RBC % Absolute Neutrophils Absolute Lymphocytes Absolute Monocytes Absolute Eosinophils Absolute Basophils D-Dimer Cancelled VBG Lactate 3.8 H* Sodium 135 L Potassium 2.5 L* Chloride 95 L Carbon Dioxide 27.5 Anion Gap 12.5 H BUN 9 Creatinine 1.17 H Estimated GFR/1.73 m2 46.87 Glucose 148 H Calcium 9.7 Magnesium Total Bilirubin 0.7 AST 40 H ALT 31 Alkaline Phosphatase 130 H Troponin I < 0.05 Total Protein 7.7 Albumin 3.4 Lipase TSH 03/14/20 03/14/20 03/14/20 17:14 17:14 17:14 WBC 6.93 RBC 4.86 Hgb 17.8 H Hct 50.7 H MCV 104.3 H MCH 36.6 H MCHC 35.1 RDW 12.1 Plt Count 301 MPV 9.3 Immature Gran % 0.6 Neutrophils % 66.4 Lymphocytes % 26.7 Monocytes % 5.5 Eosinophils % 0.4 Basophils % 0.4 Nucleated RBC % 0 Absolute Neutrophils 4.60 Absolute Lymphocytes 1.85 Absolute Monocytes 0.38 Absolute Eosinophils 0.03 Absolute Basophils 0.03 D-Dimer VBG Lactate Sodium Potassium Chloride Carbon Dioxide Anion Gap BUN Creatinine Estimated GFR/1.73 m2 Glucose Calcium Magnesium Total Bilirubin AST ALT Alkaline Phosphatase Troponin I Total Protein Albumin Lipase 492 H TSH 3.65 03/14/20 17:14 WBC RBC Hgb Hct MCV MCH MCHC RDW Plt Count MPV Immature Gran % Neutrophils % Lymphocytes % Monocytes % Eosinophils % Basophils % Nucleated RBC % Absolute Neutrophils Absolute Lymphocytes Absolute Monocytes Absolute Eosinophils Absolute Basophils D-Dimer VBG Lactate Sodium Potassium Chloride Carbon Dioxide Anion Gap BUN Creatinine Estimated GFR/1.73 m2 Glucose Calcium Magnesium 1.9 Total Bilirubin AST ALT Alkaline Phosphatase Troponin I Total Protein Albumin Lipase TSH Last Vital Signs Temp 36.6 C 03/14/20 16:53 Pulse 90 03/14/20 19:15 Resp 11 L 03/14/20 19:15 BP 129/80 03/14/20 17:45 Pulse Ox 98 03/14/20 19:15 COVID-19 Screening Have you, or household traveled for leisure in last 14 days?: No Had IN PERSON contact w/suspected or confirmed C-19 person: No
[2020-03-14 20:27] LABS: Troponin I < 0.05 ng/mL (<0.06)
[2020-03-14 20:51] LABS: Bilirubin Small (Negative); Blood Trace-intact (Negative); Clarity Sl Cloudy (Clear); Glucose Negative (Negative); Ketones Trace mg/dL (Negative); Leukocyte Esterase Negative (Negative); Nitrite Positive (Negative); pH 6.5 (5-8)
[2020-03-14 21:05] LABS: WBC >50 HPF (0-5)
[2020-03-14 21:06] LABS: Bacteria Moderate HPF (Negative); C & S Indicated? Yes; Casts Negative LPF (Negative); Crystals Negative HPF (Negative); Epithelial Cells Few HPF (Negative); Mucus Negative (Negative)
[2020-03-14 22:10] LABS: COVID-19 PCR Negative (Negative); Influenza A PCR Negative (Negative); Influenza B PCR Negative (Negative); RSV PCR Negative (Negative); Source Nasopharynx
[2020-03-14] MEDS: POTASSIUM CHLORIDE/0.9% NACL 1,000 ML 150 MEQ IV (22:35)
[2020-03-14] MEDS: Enoxaparin 80 MG/0.8 ML SYR SC (23:39)
[2020-03-14] MEDS: Ondansetron 4 MG/2 ML VIAL IVP (23:47)
--- NOTE | 2020-03-15 | DI.US_ITS ---
EXAM: US ABDOMEN LIMITED CLINICAL HISTORY: RUQ pain, pancreatitis. TECHNIQUE: Ultrasound abdomen performed using standard protocol. COMPARISON: No exams were available for comparison FINDINGS: PANCREAS: Normal where visualized. LIVER: Increased echogenicity consistent with fatty infiltration. The liver measures 15.5 cm in tanisha th. Hepatopedal flow in the Portal Vein. GALLBLADDER: No evidence of cholelithiasis. No evidence of wall thickening. No pericholecystic fluid identified. BILIARY SYSTEM: Common bile duct measures < 7 mm. No intrahepatic biliary ductal dilation. PEREZ'S SIGN: Negative. Right KIDNEYS: Unremarkable. No evidence of renal calculi. No evidence of hydronephrosis. No renal m ass or cyst identified. IMPRESSION: Fatty liver. DATA REPOSITORY:
[2020-03-15] MEDS: ACETAMINOPHEN 1,000 MG/100 ML BTL 400 MG IVPB (02:36)
[2020-03-15 05:26] VITALS: BP 120/68; PULSE 79; RESP 18; TEMP 36.7; O2SAT 95
[2020-03-15] MEDS: Levothyroxine 100 MCG TAB PO (06:03)
[2020-03-15] MEDS: POTASSIUM CHLORIDE/0.9% NACL 1,000 ML 150 MEQ IV ×3 (06:55→23:21)
[2020-03-15 07:02] LABS: Anion Gap 6.7 mmol/L (3-11); BUN 8 mg/dL (7-18); CO2 25.3 mmol/L (21.0-32.0); CREATININE 0.88 mg/dL (0.55-1.02); Chloride 106 mmol/L (98-107); Glucose 81 mg/dL (74-106); Lipase 302 U/L (73-393); Sodium 138 mmol/L (136-145)
[2020-03-15 08:00] VITALS: BP 118/75; PULSE 79; RESP 19; TEMP 36.4; O2SAT 97
[2020-03-15] MEDS: Normal Saline Flush 10 ML SYR IVP ×5 (08:52→19:13)
[2020-03-15] MEDS: Pantoprazole 40 MG VIAL IVP (08:52)
[2020-03-15] MEDS: POTASSIUM CHLORIDE 10 MEQ/100 ML BAG 100 MEQ IVPB (08:52)
[2020-03-15] MEDS: Enoxaparin 80 MG/0.8 ML SYR SC ×2 (08:53→20:32)
--- NOTE | 2020-03-15 11:20 | PHA.REVIEW ---
Pharmacy Admission Review - Admission Clinical Review (Last Reviewed 03/14/20 @ 20:30 by Marshall Rose MD) Vomiting (Acute) Abdominal pain, vomiting, and diarrhea (Acute) Hypokalemia (Acute) Abnormal EKG (Acute) Sulfa (Sulfonamide Antibiotics) Adverse Reaction (Intermediate, Unverified 03/14/20 20:41) headache/ itiching Height 5 ft 5 in Weight 79.379 kg Vomiting, Pancreatitis/Gastritis? - Comments Comments/Follow Ups: Urine culture pending, Urinalysis WBC>50 indicates UTI-just adding Rocephin, Afebrile. CT of chest does not show NEW acute PE, being treated with therapeutic Lovenox since July 2019 for previous PE, Has Zofran/Phenergan for N/V, Pt's Lexapro not ordered - Renal Dosing Renal Dosing: BUN 8 mg/dL (7-18) 03/15/20 06:20 Creatinine 0.88 mg/dL (0.55-1.02) 03/15/20 06:20 CrCl~60ml/min Medications needing adjustments: N/A - Anticoagulation Anticoagulation: Hgb 17.8 g/dL (11.2-15.7) H 03/14/20 17:14 Hct 50.7 % (36.0-46.0) H 03/14/20 17:14 Plt Count 301 10^3/uL (130-400) 03/14/20 17:14 Creatinine 0.88 mg/dL (0.55-1.02) 03/15/20 06:20 Therapeutic Anticoagulation: Reviewed Medications: Enoxaparin (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 unsure of actual start date and was previously on Xarelto-being managed by [facility] hematology) - Opiate Usage Evaluate Pain Scale/Pains Meds: Reviewed (Dilaudid IVP just added, no bowel meds, pt is NPO, c/o abdominal pain-also has IV APAP) Scheduled Bowel Reg ordered if on Opiates?: No (NPO) - Relevant Labs Sodium 138 mmol/L (136-145) 03/15/20 06:20 Potassium 3.0 mmol/L (3.5-5.1) L 03/15/20 06:20 Chloride 106 mmol/L (98-107) 03/15/20 06:20 Magnesium 1.9 mg/dL (1.8-2.4) 03/14/20 17:14 Electrolytes, C-Reactive P, ESR: Intervened (K+ being closely monitored, receiving IV bolus in addition to K+ in IVF's (need to hold IVF's while bolus infusing, as it'd exceed 10meq/hr for peripheral IV access-notified coordinator), recheck noon repeat labs for adjustments, Lipase decreased overnight to 302) - DM Control DM Control: Glucose 81 mg/dL (74-106) D 03/15/20 06:20 Insulin Dosing: N/A - Heart Failure/VT Heart Failure/VT: Troponin I < 0.05 ng/mL (<0.06) 03/14/20 20:00 - BP Control BP Control: Blood Pressure 120/68 - IV to PO Switch IV Medications: Reviewed (NPO....watch for switch to orals) - Home Meds Home Med List reviewed: Reviewed (Abilify (has not been filled at retail pharmacy recently), Lexapro, Folic Acid) Antibiotic Activity - Pharmacy Antibiotic Review Pharmacy Antibiotic Activity: C/S review - Antibiotic Information Antibiotic Review Info: Rocephin added for UTI-watch for culture results
[2020-03-15] MEDS: HYDROmorphone 2 MG/ML VIAL 0.5 MG IVP ×2 (11:30→23:13)
[2020-03-15] MEDS: cefTRIAXone 1 GM/50 ML BAG IVPB (11:31)
[2020-03-15 12:35] LABS: Potassium 3.4 mmol/L (3.5-5.1)
[2020-03-15] MEDS: Ondansetron 4 MG/2 ML VIAL IVP ×2 (13:06→19:13)
--- NOTE | 2020-03-15 13:12 | W.PM.PROGNOT ---
Date of Service Date of service: 03/15/20 Time of Service: 10:25 Assessment and Plan Assessment and plan (1) Alcohol abuse: Status: Chronic Assessment and plan: She endorses no alcohol for 2 weeks. Has endorsed a h/o PUD. No acute bleeding noted but may have gastritis. Protonix 40mg IV daily (2) Pancreatitis: Status: Chronic Assessment and plan: Mildly elevated lipase. Bowel rest; allow sips of water and ice chips. CT and Abd US show no pancreatic abnormalities. No ductal dilation, GB thickening or cholelithiasis. Advance diet as tolerated. PRN IV dilaudid and prn promethazine or Zofran for N/V IV hydration. (3) Depression: Status: Chronic Assessment and plan: Cont Abilify and Lexapro (4) UTI (urinary tract infection): Status: Acute Assessment and plan: Culture pending. Ceftriaxone 1 gram IV Q24H. Subjective Subjective Patient reports: feels better, still having pain (RUQ and generalized in lower abd.), nausea and afebrile; denies bowel movement, vomiting and shortness of breath Exam Const General: cooperative and in distress mild Nutritional Appearance: overweight Orientation: alert and oriented x3 Eyes General: appearance normal, both eyes and all related structures Sclera: sclerae normal Resp Effort & Inspection: normal respiratory effort Auscultation: clear to auscultation bilaterally Cardio Rate: regular rate Rhythm: regular rhythm Heart Sounds: S1 normal and S2 normal GI Palpation: soft and tender in the RUQ and other (lower abd); with no rebound tenderness Skin General skin exam: no rashes or lesions noted Extrem General: no pedal edema and no calf tenderness Objective Last Vital Signs Temp 36.7 C 03/15/20 05:26 Pulse 79 03/15/20 05:26 Resp 18 03/15/20 05:26 BP 120/68 03/15/20 05:26 Pulse Ox 95 03/15/20 05:26 Laboratory Results - last 24 hr 03/14/20 03/14/20 03/14/20 16:47 17:14 17:14 WBC RBC Hgb Hct MCV MCH MCHC RDW Plt Count MPV Immature Gran % Neutrophils % Lymphocytes % Monocytes % Eosinophils % Basophils % Nucleated RBC % Absolute Neutrophils Absolute Lymphocytes Absolute Monocytes Absolute Eosinophils Absolute Basophils D-Dimer Cancelled VBG Lactate 3.8 H* Sodium 135 L Potassium 2.5 L* Chloride 95 L Carbon Dioxide 27.5 Anion Gap 12.5 H BUN 9 Creatinine 1.17 H Estimated GFR/1.73 m2 46.87 Glucose 148 H Calcium 9.7 Magnesium Total Bilirubin 0.7 AST 40 H ALT 31 Alkaline Phosphatase 130 H Troponin I < 0.05 Total Protein 7.7 Albumin 3.4 Lipase TSH Urine Color Urine Clarity Urine pH Ur Specific [place] Urine Protein Urine Ketones Urine Blood Urine Nitrite Urine Bilirubin Urine Urobilinogen Ur Leukocyte Esterase Urine RBC Urine WBC Ur Epithelial Cells Urine Crystals Urine Bacteria Urine Casts Urine Mucus Ur Culture Indicated? Urine Glucose COVID-19 Source SARS-CoV-2 (PCR) Influenza Type A (PCR) Influenza Type B (PCR) RSV (PCR) 03/14/20 03/14/20 03/14/20 17:14 17:14 17:14 WBC 6.93 RBC 4.86 Hgb 17.8 H Hct 50.7 H MCV 104.3 H MCH 36.6 H MCHC 35.1 RDW 12.1 Plt Count 301 MPV 9.3 Immature Gran % 0.6 Neutrophils % 66.4 Lymphocytes % 26.7 Monocytes % 5.5 Eosinophils % 0.4 Basophils % 0.4 Nucleated RBC % 0 Absolute Neutrophils 4.60 Absolute Lymphocytes 1.85 Absolute Monocytes 0.38 Absolute Eosinophils 0.03 Absolute Basophils 0.03 D-Dimer VBG Lactate Sodium Potassium Chloride Carbon Dioxide Anion Gap BUN Creatinine Estimated GFR/1.73 m2 Glucose Calcium Magnesium Total Bilirubin AST ALT Alkaline Phosphatase Troponin I Total Protein Albumin Lipase 492 H TSH 3.65 Urine Color Urine Clarity Urine pH Ur Specific [place] Urine Protein Urine Ketones Urine Blood Urine Nitrite Urine Bilirubin Urine Urobilinogen Ur Leukocyte Esterase Urine RBC Urine WBC Ur Epithelial Cells Urine Crystals Urine Bacteria Urine Casts Urine Mucus Ur Culture Indicated? Urine Glucose COVID-19 Source SARS-CoV-2 (PCR) Influenza Type A (PCR) Influenza Type B (PCR) RSV (PCR) 03/14/20 03/14/20 03/14/20 17:14 20:00 20:10 WBC RBC Hgb Hct MCV MCH MCHC RDW Plt Count MPV Immature Gran % Neutrophils % Lymphocytes % Monocytes % Eosinophils % Basophils % Nucleated RBC % Absolute Neutrophils Absolute Lymphocytes Absolute Monocytes Absolute Eosinophils Absolute Basophils D-Dimer VBG Lactate Sodium Potassium Chloride Carbon Dioxide Anion Gap BUN Creatinine Estimated GFR/1.73 m2 Glucose Calcium Magnesium 1.9 Total Bilirubin AST ALT Alkaline Phosphatase Troponin I < 0.05 Total Protein Albumin Lipase TSH Urine Color Urine Clarity Urine pH Ur Specific [place] Urine Protein Urine Ketones Urine Blood Urine Nitrite Urine Bilirubin Urine Urobilinogen Ur Leukocyte Esterase Urine RBC Urine WBC Ur Epithelial Cells Urine Crystals Urine Bacteria Urine Casts Urine Mucus Ur Culture Indicated? Urine Glucose COVID-19 Source Nasopharynx SARS-CoV-2 (PCR) Negative Influenza Type A (PCR) Negative Influenza Type B (PCR) Negative RSV (PCR) Negative 03/14/20 03/14/20 03/15/20 20:10 20:12 06:20 WBC RBC Hgb Hct MCV MCH MCHC RDW Plt Count MPV Immature Gran % Neutrophils % Lymphocytes % Monocytes % Eosinophils % Basophils % Nucleated RBC % Absolute Neutrophils Absolute Lymphocytes Absolute Monocytes Absolute Eosinophils Absolute Basophils D-Dimer VBG Lactate Sodium 138 Potassium 3.0 L Chloride 106 Carbon Dioxide 25.3 Anion Gap 6.7 BUN 8 Creatinine 0.88 Estimated GFR/1.73 m2 >= 60.00 Glucose 81 D Calcium 8.0 L Magnesium Total Bilirubin AST ALT Alkaline Phosphatase Troponin I Total Protein Albumin Lipase 302 TSH Urine Color Yellow Urine Clarity Sl cloudy Urine pH 6.5 Ur Specific [place] 1.010 Urine Protein 30 H Urine Ketones Trace H Urine Blood Trace-intact H Urine Nitrite Positive H Urine Bilirubin Small H Urine Urobilinogen 1.0 H Ur Leukocyte Esterase Negative Urine RBC 3-5 H Urine WBC >50 H Ur Epithelial Cells Few Urine Crystals Negative Urine Bacteria Moderate Urine Casts Negative Urine Mucus Negative Ur Culture Indicated? Yes Urine Glucose Negative COVID-19 Source Cancelled SARS-CoV-2 (PCR) Cancelled Influenza Type A (PCR) Cancelled Influenza Type B (PCR) Cancelled RSV (PCR) Cancelled 03/15/20 12:27 WBC RBC Hgb Hct MCV MCH MCHC RDW Plt Count MPV Immature Gran % Neutrophils % Lymphocytes % Monocytes % Eosinophils % Basophils % Nucleated RBC % Absolute Neutrophils Absolute Lymphocytes Absolute Monocytes Absolute Eosinophils Absolute Basophils D-Dimer VBG Lactate Sodium Potassium 3.4 L Chloride Carbon Dioxide Anion Gap BUN Creatinine Estimated GFR/1.73 m2 Glucose Calcium Magnesium Total Bilirubin AST ALT Alkaline Phosphatase Troponin I Total Protein Albumin Lipase TSH Urine Color Urine Clarity Urine pH Ur Specific [place] Urine Protein Urine Ketones Urine Blood Urine Nitrite Urine Bilirubin Urine Urobilinogen Ur Leukocyte Esterase Urine RBC Urine WBC Ur Epithelial Cells Urine Crystals Urine Bacteria Urine Casts Urine Mucus Ur Culture Indicated? Urine Glucose COVID-19 Source SARS-CoV-2 (PCR) Influenza Type A (PCR) Influenza Type B (PCR) RSV (PCR)
--- NOTE | 2020-03-15 15:39 | PDOC.CMIN ---
- If Service Date Differs Date of service: 03/15/20 Time of Service: 15:39 Care Management Initial Assess REASON FOR HOSPITALIZATION:: Vomiting. PAST MEDICAL HISTORY/PAST SURGICAL HISTORY:: Medical History: Alcohol abuse, Anxiety, Depression, Hypothyroidism,. Pulmonary emboli, and Ulcerative colitis. Surgical History: Hx of section and Hx of colonoscopy. PREVIOUS FUNCTIONAL STATUS/SOCIAL/FAMILY SUPPORTS:: Martina is a 64 year old female who lives alone in an apartment in [facility]. She has two adult sons, one who resides in [place], [place], and one in [place]. She additionally has two grandchildren, one grandson and one granddaughter. Martina is retired but she previously worked at a variety of jobs. She does not drive but she is independent with her ADLs at baseline. Martina identifies her children and friends as a source of support for her. She spends her days reading and watching movies. CURRENT FUNCTIONAL STATUS:: Martina is lying in bed when CM comes to meet with her. She is pleasant and easily engages in conversation. She expresses the desire to feel better and says she hopes to remain at the hospital until she does. CM will continue to follow. ADVANCE DIRECTIVES:: None on file; CM offers the Advance Directives form and patient declines. Has patient been provided with info about the portal/API?: Yes Did the patient sign up for the portal?: No (No internet access.) CODE STATUS:: Full Code INSURANCE COVERAGE / FINANCIAL ISSUES:: Medicaid. CURRENT HOME/COMMUNITY SERVICES/EQUIPMENT:: Utilizes [facility] for transportation needs. Denies any other services or equipment. PRIMARY CARE PHYSICIAN:: Genaro Henson DNP, CLERICAL SUPPORT SPECIALIST-C ([facility]) POTENTIAL DISCHARGE NEEDS:: Follow up appointment with PCP and discharge plan of care. PATIENT/FAMILY EDUCATION NEEDS:: Discharge instructions, limitations, follow up plan of care including Ask Me Three and self management. ANTICIPATED BARRIERS TO DISCHARGE:: No anticipated barriers at this time. TRANSPORTATION:: Via [facility] coordinated by CM. PLAN:: Anticipate Martina will be discharged home with no new services when medically cleared by provider. She will follow up with her PCP, community providers, and discharge plan of care as directed. Martina will be driven home by [facility] to be coordinated by CM when ready. CM will continue to support Martina and assess for discharge planning needs.
[2020-03-15 16:00] VITALS: BP 140/87; PULSE 81; RESP 18; TEMP 36.5; O2SAT 97
[2020-03-15] MEDS: Escitalopram 20 MG TAB PO (16:03)
[2020-03-15] MEDS: ARIPiprazole 5 MG TAB PO (16:03)
[2020-03-15] MEDS: MORPHine 2 MG/ML SYR IVP (16:50)
[2020-03-15 23:35] VITALS: BP 149/92; PULSE 92; RESP 18; TEMP 36.2; O2SAT 98
[2020-03-16] MEDS: Normal Saline Flush 10 ML SYR IVP ×4 (04:32→23:37)
[2020-03-16] MEDS: Levothyroxine 100 MCG TAB PO (05:29)
[2020-03-16] MEDS: HYDROmorphone 2 MG/ML VIAL 0.5 MG IVP ×3 (05:34→14:36)
[2020-03-16] MEDS: LORazepam 2 MG/ML VIAL IVP ×3 (05:51→23:36)
[2020-03-16] MEDS: POTASSIUM CHLORIDE/0.9% NACL 1,000 ML 150 MEQ IV (06:16)
--- NOTE | 2020-03-16 06:33 | NUR.NOTE ---
Nursing Note: 7P to 7A shift: Resident is AO x 3. Had episode of vomiting in small amount of yellowish mucosy emesis. Medicated with Promethazine and with some relief. Pt been out of bed frequently to void in the toilet, instructed to call staff for assistance on her IV pool, but not compliant, IV was pulled off and bleeding. Replaced with new site , Pt did not sleep, increasing anxiety observed. Verbalized of pain and medicated with Dilaudid also with mild effect. Started to have forced vomiting. Ativan 1 mg IVP PRN, administered at 0600 hrs.and effective, sleeping at this time. IVFluids infusing well. Bed alarm in progress.
[2020-03-16 07:45] VITALS: BP 152/85; PULSE 89; RESP 18; TEMP 36.8; O2SAT 96
[2020-03-16] MEDS: Enoxaparin 80 MG/0.8 ML SYR SC ×2 (09:20→20:07)
[2020-03-16] MEDS: Escitalopram 20 MG TAB PO (09:20)
[2020-03-16] MEDS: Pantoprazole 40 MG VIAL IVP ×2 (09:20→20:08)
[2020-03-16] MEDS: ARIPiprazole 5 MG TAB PO (09:20)
[2020-03-16] MEDS: cefTRIAXone 1 GM/50 ML BAG IVPB (09:31)
--- NOTE | 2020-03-16 11:27 | W.PM.PROGNOT ---
Date of Service Date of service: 03/16/20 Time of Service: 10:29 Assessment and Plan Assessment and plan (1) Pancreatitis: Status: Chronic Assessment and plan: Mild lipase elevation. CT abd and abd US w/o pancreatic abnormalities or ductal dilation. Water/ice chips; advance as tolerated (2) Abdominal pain, vomiting, and diarrhea: Status: Acute Assessment and plan: Constipation / obstipation may be causing her pain given the location and fair amount of stool in the colon. Dulcolox suppository now. Mineral oil enema prn. Unable to give any cathartics orally at this time d/t nausea. (3) Hypokalemia: Status: Acute Assessment and plan: Mild K of 3.4 on 03/15. Repeat pending. (4) UTI (urinary tract infection): Status: Acute Assessment and plan: Gram neg tremayne growing in culture. Cont Rocephin and adjust antibiotic if necessary when final sensitivities reported. Subjective Subjective Patient reports: afebrile; denies shortness of breath Interval history since last seen: Emesis x 2 last PM Has been tolerating small amounts of water and ice chips. R mid abd discomfort. Small, formed/solid BM Exam Const General: cooperative and uncomfortable Nutritional Appearance: overweight Orientation: alert and oriented x3 Eyes Sclera: sclerae normal Pupils: PERRL Resp Effort & Inspection: normal respiratory effort Auscultation: clear to auscultation bilaterally Cardio Rate: regular rate Rhythm: regular rhythm Heart Sounds: S1 normal and S2 normal GI Palpation: soft and tender periumbilically (On the right) Extrem General: no pedal edema and no calf tenderness Objective Last Vital Signs Temp 36.8 C 03/16/20 07:45 Pulse 89 03/16/20 07:45 Resp 18 03/16/20 07:45 BP 152/85 H 03/16/20 07:45 Pulse Ox 96 03/16/20 07:45 Laboratory Results - last 24 hr 03/15/20 12:27 Potassium 3.4 L
[2020-03-16] MEDS: Normal Saline 1,000 ML 125 ML IV ×2 (11:53→19:22)
[2020-03-16 13:23] LABS: Anion Gap 10.1 mmol/L (3-11); BUN 4 mg/dL (7-18); CO2 23.9 mmol/L (21.0-32.0); CREATININE 0.74 mg/dL (0.55-1.02); Calcium 8.2 mg/dL (8.5-10.1); Chloride 102 mmol/L (98-107); Glucose 78 mg/dL (74-106); Potassium 4.1 mmol/L (3.5-5.1); Sodium 136 mmol/L (136-145)
--- NOTE | 2020-03-16 13:29 | W.NUTRFU ---
Date of service: 03/16/20 Time of Service: 13:29 Nutritional Follow up NOTE: 64 year old female admitted with pancreatitis, UTI with hx of ulcerative colitis and ETOH abuse. BMI indicating mildly overweight. Martina reports drinking wine most of days, and onlly eats 1 meal daily. No recent weight loss reported. Currently on IV hydration and ice chips. Met with Martina to discuss diet s/p discharge. Provided educational material and contact information. Will continue to follow and make recommendations as needed. Time Spent in Nutritional Counseling and Treatment: 10
[2020-03-16] MEDS: Ondansetron 4 MG/2 ML VIAL IVP (14:42)
[2020-03-16 16:03] VITALS: BP 161/98; PULSE 96; RESP 18; TEMP 36.6; O2SAT 99
--- NOTE | 2020-03-16 17:23 | PDOC.CMPRO ---
Care Management Progress Note S/O: Martina had ongoing vomiting and nausea through the night per MD. She continues to be monitored and treated at this time. Per MD, her diet will be advanced as tolerated, currently on ice chips and water. CM continues to follow. A: 64 year old female admitted to [facility] 03/14/20 for Vomiting P: Anticipate Martina will be discharged home with no new services when medically cleared by provider. She will follow up with her PCP, community providers, and discharge plan of care as directed. Martina will be driven home by [facility] to be coordinated by CM when ready. CM will continue to support Martina and assess for discharge planning needs.
[2020-03-16 20:08] VITALS: TEMP 36
[2020-03-17 00:02] VITALS: BP 139/86; PULSE 90; RESP 20; TEMP 36; O2SAT 98
[2020-03-17] MEDS: Normal Saline 1,000 ML 125 ML IV (03:03)
[2020-03-17] MEDS: Levothyroxine 100 MCG TAB PO (05:22)
[2020-03-17 07:11] LABS: Platelet Count 201 10^3/uL (130-400)
[2020-03-17] MEDS: Ondansetron 4 MG/2 ML VIAL IVP (07:18)
[2020-03-17] MEDS: LORazepam 2 MG/ML VIAL IVP ×2 (07:38→15:17)
[2020-03-17 07:50] VITALS: BP 147/90; PULSE 106; RESP 18; TEMP 36.7; O2SAT 100
[2020-03-17] MEDS: Enoxaparin 80 MG/0.8 ML SYR SC ×2 (08:40→19:54)
[2020-03-17] MEDS: ARIPiprazole 5 MG TAB PO (08:40)
[2020-03-17] MEDS: Escitalopram 20 MG TAB PO (08:40)
[2020-03-17] MEDS: Pantoprazole 40 MG VIAL IVP ×2 (08:40→19:53)
--- NOTE | 2020-03-17 09:08 | CMPROGNOTE_ITS ---
- If Service Date Differs Date of service: 03/17/20 Time of Service: 09:08 Care Management Progress Note S/O: Martina had ongoing vomiting and nausea through the night per MD. A change to her antiemetics was made in the hopes of achieving better control of her symptoms. Martina was sitting up on the side of her bed when CM met with her. She was complaining of RUQ and LLQ abdominal pain. Martina had been on ice chips only orally but her diet has been advanced to regular for dinner.She has a diagnosis of pancreatitis and was started on a CIWA protocol this afternoon. Martina required 1mg of Ativan at 1517 for anxiety. Her CIWA score at 1600 was 16, requiring an additional 3mg of Ativan. She will be closely monitored. A: kenn is a 64 year old female admitted to [facility] 03/14/20 for Vomiting P: Anticipate Martina will be discharged home with no new services when medically cleared by provider. It is possible she may seek treatment for her alcohol abuse. She will follow up with her PCP, community providers, and discharge plan of care as directed. Martina will be driven home by [facility] to be coordinated by CM when ready. CM will continue to support Martina and assess for discharge planning needs.
[2020-03-17] MEDS: cefTRIAXone 1 GM/50 ML BAG IVPB (09:25)
[2020-03-17 10:47] LABS: Abs Immature Grans 0.05 10^3/uL (0.0-0.06); Absolute Basophil Count 0.03 10^3/uL (0.0-0.2); Absolute Eosinophil Count 0.03 10^3/uL (0.0-0.7); Absolute Lymphocyte Count 1.15 10^3/uL (1.2-3.4); Absolute Monocyte Count 0.37 10^3/uL (0.1-0.8); Basophils % 0.5; Eosinophils % 0.5; HCT 42.4 % (36.0-46.0); HGB 14.3 g/dL (11.2-15.7); Immature Grans % 0.8; Lymphocytes % 18.5; MCH 37.4 pg (27.0-33.0); MCHC 33.7 % (32.0-36.0); MPV 10.2 fL (8.0-11.0); Monocytes % 5.9; Neutrophils % 73.8; Nucleated RBC 0 %; RBC 3.82 10^6/uL (3.93-5.22); RDW 12.3 % (11.7-14.6); RDW-SD 51.3 fL; WBC 6.23 10^3/uL (4.4-10.8)
[2020-03-17 10:52] LABS: ALT 23 U/L (14-59); AST 29 U/L (15-37); Alkaline Phosphatase 100 U/L (46-116); Bilirubin, Direct 0.15 mg/dL (0.00-0.20); Bilirubin, Total 0.6 mg/dL (0.2-1.0); Total Protein 5.9 g/dL (6.4-8.2)
[2020-03-17 11:18] LABS: Anion Gap 17.1 mmol/L (3-11); BUN 4 mg/dL (7-18); CO2 18.9 mmol/L (21.0-32.0); CREATININE 0.87 mg/dL (0.55-1.02); Calcium 8.4 mg/dL (8.5-10.1); Chloride 100 mmol/L (98-107); Glucose 65 mg/dL (74-106); Magnesium 1.3 mg/dL (1.8-2.4); Potassium 3.8 mmol/L (3.5-5.1); Sodium 136 mmol/L (136-145)
[2020-03-17] MEDS: MAGNESIUM SULFATE 4 GM/100 ML BAG IVPB (12:21)
[2020-03-17 15:23] VITALS: BP 143/86; PULSE 92; RESP 19; TEMP 36.4; O2SAT 95
--- NOTE | 2020-03-17 15:53 | W.PM.PROGNOT ---
Date of Service Date of service: 03/17/20 Time of Service: 15:53 Assessment and Plan Assessment and plan (1) Alcohol withdrawal delirium: Status: Acute Assessment and plan: At this point, the patient definitely is withdrawing. Start monitoring on CIWA. Add banana bag and a dose of thiamine now. Prn ativan. (2) Pancreatitis: Status: Acute Assessment and plan: Likely acute on chronic, in addition to have alcoholic gastritis. Continue antiemetics. Trial advancing to clear liquids. Add D5 to fluids due to hypoglycemia. (3) Abdominal pain, vomiting, and diarrhea: Status: Acute Assessment and plan: Likely multifactorial: pancreatitis, constipation / obstipation, gastritis. Continue bowel regimen. Treat with PPI/carafate. (4) Hypokalemia: Status: Resolved Assessment and plan: Recheck in am. Also, replete magnesium. (5) Hypomagnesemia: Status: Acute Assessment and plan: Replete and recheck in am (6) UTI (urinary tract infection): Status: Acute Assessment and plan: Present on admission. Mixed, with klebsiella growing. Continue ceftriaxone (7) History of pulmonary embolus (PE): Status: Chronic Assessment and plan: Continue anticoagulation (lovenox as not reliably tolerating PO). Check echo as I suspect the patient's SANDOVAL has to do with pulmonary hypertension as a result of her PE in July of 2019. (8) DVT prophylaxis: Status: Acute Assessment and plan: full dose lovenox (9) Discharge planning issues: Status: Acute Assessment and plan: Full code Continues to require hospitalization. Low threshold to upgrade to the ICU, pending course of her alcohol withdrawal. Subjective Subjective Interval history since last seen: Ms Kuhn reports vomiting 3x today. She is willing to try having some nathan gale. Endorses dizziness, no chest pain today, but yes occasional chest pain, shortness of breath on ambulation, nausea/vomiting, RUQ pain. She states her last drink was 2 days ago. She endorses feeling shaky and like she is having chills, which is how she usually feels when she is withdrawing. Nursing reports that she has been hallucinating all day as well. To me, she states she thinks it's Thursday and 2019 (it is 03/17/2020). Exam Narrative Exam Narrative: General: Pleasant middle-aged female, A&Ox2, confused, tremulous HEENT: EOMI, MMM Heart: RRR, no m/r/g Lungs: coarse breath sounds at B bases Abdomen: soft, nontender, nondistended Extremities: trace edema BLE's. Objective Last Vital Signs Temp 36.4 C L 03/17/20 15:23 Pulse 92 H 03/17/20 15:23 Resp 19 03/17/20 15:23 BP 143/86 H 03/17/20 15:23 Pulse Ox 95 03/17/20 15:23 Laboratory Results - last 24 hr 03/17/20 03/17/20 03/17/20 06:30 06:30 06:30 WBC 6.23 RBC 3.82 L Hgb 14.3 D Hct 42.4 MCV 111.0 H MCH 37.4 H MCHC 33.7 RDW 12.3 Plt Count 201 D MPV 10.2 Immature Gran % 0.8 Neutrophils % 73.8 Band Neutrophils % Lymphocytes % 18.5 Atypical Lymphs % Monocytes % 5.9 Eosinophils % 0.5 Basophils % 0.5 Metamyelocytes % Myelocytes % Promyelocytes % Other Cells % Nucleated RBC % 0 Absolute Neutrophils 4.60 Absolute Lymphocytes 1.15 L Absolute Monocytes 0.37 Absolute Eosinophils 0.03 Absolute Basophils 0.03 RBC Morphology Polychromasia Hypochromasia Poikilocytosis Basophilic Stippling Anisocytosis Microcytosis Macrocytosis Spherocytes Tear Drop Cells Ovalocytes Stomatocytes [place] Bodies [place] Cells/Echinocytes Acanthocytes (Spur) Schistocytes Sodium 136 Potassium 3.8 Chloride 100 Carbon Dioxide 18.9 L Anion Gap 17.1 H BUN 4 L Creatinine 0.87 Estimated GFR/1.73 m2 >= 60.00 Glucose 65 L Calcium 8.4 L Magnesium 1.3 L Total Bilirubin 0.6 Conjugated Bilirubin 0.15 AST 29 ALT 23 Alkaline Phosphatase 100 Total Protein 5.9 L Albumin 3.0 L 03/17/20 06:30 WBC Cancelled RBC Cancelled Hgb Cancelled Hct Cancelled MCV Cancelled MCH Cancelled MCHC Cancelled RDW Cancelled Plt Count Cancelled MPV Cancelled Immature Gran % Cancelled Neutrophils % Cancelled Band Neutrophils % Cancelled Lymphocytes % Cancelled Atypical Lymphs % Cancelled Monocytes % Cancelled Eosinophils % Cancelled Basophils % Cancelled Metamyelocytes % Cancelled Myelocytes % Cancelled Promyelocytes % Cancelled Other Cells % Cancelled Nucleated RBC % Cancelled Absolute Neutrophils Cancelled Absolute Lymphocytes Cancelled Absolute Monocytes Cancelled Absolute Eosinophils Cancelled Absolute Basophils Cancelled RBC Morphology Cancelled Polychromasia Cancelled Hypochromasia Cancelled Poikilocytosis Cancelled Basophilic Stippling Cancelled Anisocytosis Cancelled Microcytosis Cancelled Macrocytosis Cancelled Spherocytes Cancelled Tear Drop Cells Cancelled Ovalocytes Cancelled Stomatocytes Cancelled [place] Bodies Cancelled [place] Cells/Echinocytes Cancelled Acanthocytes (Spur) Cancelled Schistocytes Cancelled Sodium Potassium Chloride Carbon Dioxide Anion Gap BUN Creatinine Estimated GFR/1.73 m2 Glucose Calcium Magnesium Total Bilirubin Conjugated Bilirubin AST ALT Alkaline Phosphatase Total Protein Albumin
[2020-03-17] MEDS: Sucralfate 1 GM TAB PO ×2 (16:22→21:18)
[2020-03-17] MEDS: LORazepam 1 MG TAB PO/SL ×2 (16:22→20:45)
[2020-03-17] MEDS: Folic Acid 50 MG/10 ML VIAL (17:00)
[2020-03-17] MEDS: Normal Saline Flush 10 ML SYR IVP (19:52)
[2020-03-17] MEDS: Nicotine 21 MG/24 HR PATCH TD (20:58)
[2020-03-17 23:09] VITALS: BP 120/68; PULSE 84; RESP 20; TEMP 36.7; O2SAT 98
[2020-03-18] MEDS: DEXTROSE 5%-0.9% SALINE 1,000 ML 125 ML IV ×2 (00:56→09:27)
[2020-03-18] MEDS: Levothyroxine 100 MCG TAB PO (05:30)
[2020-03-18 05:35] VITALS: BP 124/88; PULSE 92; RESP 18; TEMP 36.1; O2SAT 99
[2020-03-18 05:42] VITALS: BP 124/88; PULSE 90; RESP 20; TEMP 36.6; O2SAT 100
[2020-03-18 06:37] VITALS: BP 137/84; PULSE 86; RESP 20; TEMP 36; O2SAT 99
[2020-03-18 08:11] LABS: Abs Immature Grans 0.03 10^3/uL (0.0-0.06); Absolute Basophil Count 0.03 10^3/uL (0.0-0.2); Absolute Eosinophil Count 0.06 10^3/uL (0.0-0.7); Absolute Lymphocyte Count 0.83 10^3/uL (1.2-3.4); Absolute Monocyte Count 0.34 10^3/uL (0.1-0.8); Absolute Neutrophil Count 4.03 10^3/uL (1.2-6.7); Basophils % 0.6; Eosinophils % 1.1; HCT 40.3 % (36.0-46.0); HGB 14.1 g/dL (11.2-15.7); Immature Grans % 0.6; Lymphocytes % 15.6; MCH 37.4 pg (27.0-33.0); MCV 106.9 fL (80-95); MPV 9.3 fL (8.0-11.0); Monocytes % 6.4; Neutrophils % 75.7; Nucleated RBC 0 %; Platelet Count 195 10^3/uL (130-400); RBC 3.77 10^6/uL (3.93-5.22); RDW 12.3 % (11.7-14.6); RDW-SD 48.8 fL; WBC 5.32 10^3/uL (4.4-10.8)
[2020-03-18 08:25] LABS: Diff Comment RBC Morph Reviewed
[2020-03-18] MEDS: Enoxaparin 80 MG/0.8 ML SYR SC ×2 (08:25→20:07)
[2020-03-18] MEDS: Sucralfate 1 GM TAB PO ×3 (08:25→21:48)
[2020-03-18] MEDS: Escitalopram 20 MG TAB PO (08:25)
[2020-03-18] MEDS: Nicotine 21 MG/24 HR PATCH TD (08:25)
[2020-03-18] MEDS: ARIPiprazole 5 MG TAB PO (08:25)
[2020-03-18] MEDS: Pantoprazole 40 MG VIAL IVP ×2 (08:25→20:06)
[2020-03-18 08:26] LABS: Macrocytosis 1+
[2020-03-18 08:27] LABS: ALT 24 U/L (14-59); AST 31 U/L (15-37); Albumin 2.8 g/dL (3.4-5.0); Alkaline Phosphatase 88 U/L (46-116); Anion Gap 10.6 mmol/L (3-11); BUN 1 mg/dL (7-18); Bilirubin, Direct 0.12 mg/dL (0.00-0.20); Bilirubin, Total 0.6 mg/dL (0.2-1.0); CO2 22.4 mmol/L (21.0-32.0); CREATININE 0.71 mg/dL (0.55-1.02); Calcium 8.4 mg/dL (8.5-10.1); Chloride 105 mmol/L (98-107); Glucose 104 mg/dL (74-106); Lipase 447 U/L (73-393); Magnesium 2.1 mg/dL (1.8-2.4); Potassium 3.2 mmol/L (3.5-5.1); Sodium 138 mmol/L (136-145)
[2020-03-18 08:35] VITALS: BP 140/94; PULSE 96; RESP 18; TEMP 36.9; O2SAT 98
[2020-03-18] MEDS: cefTRIAXone 1 GM/50 ML BAG IVPB (09:48)
[2020-03-18] MEDS: HYDROmorphone 2 MG/ML VIAL 0.5 MG IVP ×2 (09:55→18:23)
[2020-03-18] MEDS: POTASSIUM CHLORIDE 20 MEQ/100 ML BAG 35 MEQ IVPB (10:37)
--- NOTE | 2020-03-18 11:29 | W.PM.PROGNOT ---
Date of Service Date of service: 03/18/20 Time of Service: 11:29 Assessment and Plan Assessment and plan (1) Alcohol withdrawal delirium: Status: Acute Assessment and plan: Continue monitoring on CIWA with prn ativan. Hallucinations probably have to do with withdrawal. Continue banana bag daily. (2) Pancreatitis: Status: Acute Assessment and plan: Likely acute on chronic, in addition to have alcoholic gastritis. Had pain after having a clear liquid tray this morning - discussed with nursing how we will go back to gingerale/water for now. Continue aggressive IVF. (3) Abdominal pain, vomiting, and diarrhea: Status: Acute Assessment and plan: Likely multifactorial: pancreatitis, constipation / obstipation, gastritis. Continue bowel regimen. Treat with PPI/carafate. (4) Hypokalemia: Status: Acute Assessment and plan: Replete and recheck in am. Monitor magnesium. (5) Hypomagnesemia: Status: Resolved Assessment and plan: Recheck in am (6) UTI (urinary tract infection): Status: Acute Assessment and plan: Present on admission. Mixed cx, with klebsiella growing. Continue ceftriaxone (7) History of pulmonary embolus (PE): Status: Chronic Assessment and plan: Continue anticoagulation (lovenox as not reliably tolerating PO). Check echo as I suspect the patient's SANDOVAL has to do with pulmonary hypertension as a result of her PE in July of 2019. (8) DVT prophylaxis: Status: Acute Assessment and plan: full dose lovenox (9) Discharge planning issues: Status: Acute Assessment and plan: Full code Continues to require hospitalization. Low threshold to upgrade to the ICU, pending course of her alcohol withdrawal. Subjective Subjective Interval history since last seen: Ms Kuhn hallucinated again last night and this morning. Fell and hit her head on the bedside table overnight, but did not report any pain since, and other than sleepiness after dilaudid, her mental status has not changed. She has been withdrawing from alcohol, per CIWA. Yesterday afternoon her score was 16. This morning it was 3. Ativan does not appear to be causing her hallucinations/make them worse. She had worsening of her abdominal pain (LUQ) after eating a clear liquid breakfast. No n/v today or overnight. Received dilaudid for her abdominal pain, which made her sleepy. +BM yesterday, but none yet today. Reports dizziness, denies chest pain or shortness of breath. Exam Narrative Exam Narrative: General: Middle-aged female, somnolent, in bed, A&Ox2, not tremulous HEENT: EOMI, MMM Heart: RRR, no m/r/g Lungs: coarse breath sounds, diminished at B bases Abdomen: soft, Tender in LUQ Extremities:no edema BLE's. Objective Last Vital Signs Temp 36.9 C 03/18/20 08:35 Pulse 96 H 03/18/20 08:35 Resp 18 03/18/20 08:35 BP 140/94 H 03/18/20 08:35 Pulse Ox 98 03/18/20 08:35 Laboratory Results - last 24 hr 03/18/20 03/18/20 08:01 08:01 WBC 5.32 RBC 3.77 L Hgb 14.1 Hct 40.3 MCV 106.9 H MCH 37.4 H MCHC 35.0 RDW 12.3 Plt Count 195 MPV 9.3 Immature Gran % 0.6 Neutrophils % 75.7 Lymphocytes % 15.6 Monocytes % 6.4 Eosinophils % 1.1 Basophils % 0.6 Nucleated RBC % 0 Absolute Neutrophils 4.03 Absolute Lymphocytes 0.83 L Absolute Monocytes 0.34 Absolute Eosinophils 0.06 Absolute Basophils 0.03 RBC Morphology See below Macrocytosis 1+ Sodium 138 Potassium 3.2 L Chloride 105 Carbon Dioxide 22.4 Anion Gap 10.6 BUN 1 L Creatinine 0.71 Estimated GFR/1.73 m2 >= 60.00 Glucose 104 Calcium 8.4 L Magnesium 2.1 Total Bilirubin 0.6 Conjugated Bilirubin 0.12 AST 31 ALT 24 Alkaline Phosphatase 88 Total Protein 6.0 L Albumin 2.8 L Lipase 447 H
--- NOTE | 2020-03-18 12:43 | CMPROGNOTE_ITS ---
- If Service Date Differs Date of service: 03/18/20 Time of Service: 12:43 Care Management Progress Note S/O: Martina was lying in bed when CM met with her. She wa svery sleepy after being medicated for pain and was not interested in conversation at that time. Her nausea and vomiting has improved but she had abdominal pain after breakfast. She is back on a clear liquid diet. Martina remains on the CIWA protocol. Last night and this morning she hallucinated per report and fell and hit her head. Today her CIWA scores have been 4 all day and she has not required any additional medication. A: kenn is a 64 year old female admitted to [facility] 03/14/20 for Vomiting P: Anticipate Martina will be discharged home with no new services when medically cleared by provider. It is possible she may seek treatment for her alcohol abuse. She will follow up with her PCP, community providers, and discharge plan of care as directed. Martina will be driven home by [facility] to be coordinated by CM when ready. CM will continue to support Martina and assess for discharge planning needs. cc:
[2020-03-18] MEDS: POTASSIUM CHLORIDE 20 MEQ/100 ML BAG 50 MEQ IVPB (13:24)
[2020-03-18 15:44] VITALS: BP 123/84; PULSE 85; RESP 18; TEMP 36.3; O2SAT 98
[2020-03-18] MEDS: ACETAMINOPHEN 1,000 MG/100 ML BTL 400 MG IVPB (15:45)
[2020-03-18] MEDS: Normal Saline Flush 10 ML SYR IVP ×2 (18:24→20:06)
[2020-03-18 23:44] VITALS: BP 120/80; PULSE 82; RESP 18; TEMP 36.6; O2SAT 98
[2020-03-19] MEDS: DEXTROSE 5%-0.9% SALINE 1,000 ML 125 ML IV ×2 (00:31→08:47)
[2020-03-19] MEDS: HYDROmorphone 2 MG/ML VIAL 0.5 MG IVP ×4 (02:06→21:22)
[2020-03-19] MEDS: Normal Saline Flush 10 ML SYR IVP ×6 (02:06→21:23)
[2020-03-19] MEDS: Levothyroxine 100 MCG TAB PO (05:14)
[2020-03-19 07:23] LABS: Abs Immature Grans 0.03 10^3/uL (0.0-0.06); Absolute Basophil Count 0.04 10^3/uL (0.0-0.2); Absolute Eosinophil Count 0.11 10^3/uL (0.0-0.7); Absolute Lymphocyte Count 1.52 10^3/uL (1.2-3.4); Absolute Monocyte Count 0.37 10^3/uL (0.1-0.8); Absolute Neutrophil Count 2.21 10^3/uL (1.2-6.7); Basophils % 0.9; Eosinophils % 2.6; HCT 43.7 % (36.0-46.0); HGB 14.6 g/dL (11.2-15.7); Immature Grans % 0.7; Lymphocytes % 35.5; MCH 36.6 pg (27.0-33.0); MCHC 33.4 % (32.0-36.0); MCV 109.5 fL (80-95); Monocytes % 8.6; Neutrophils % 51.7; Nucleated RBC 0 %; Platelet Count 229 10^3/uL (130-400); RBC 3.99 10^6/uL (3.93-5.22); RDW 12.3 % (11.7-14.6); RDW-SD 50.4 fL; WBC 4.28 10^3/uL (4.4-10.8)
[2020-03-19 07:30] VITALS: BP 147/100; PULSE 84; RESP 17; TEMP 37.4; O2SAT 98
[2020-03-19 07:36] LABS: Anion Gap 8.4 mmol/L (3-11); BUN 2 mg/dL (7-18); CO2 24.6 mmol/L (21.0-32.0); Calcium 8.5 mg/dL (8.5-10.1); Chloride 107 mmol/L (98-107); Glucose 81 mg/dL (74-106); Sodium 140 mmol/L (136-145)
[2020-03-19 07:47] LABS: Potassium 2.9 mmol/L (3.5-5.1)
[2020-03-19] MEDS: Nicotine 21 MG/24 HR PATCH TD (07:55)
[2020-03-19] MEDS: ARIPiprazole 5 MG TAB PO (07:56)
[2020-03-19] MEDS: Enoxaparin 80 MG/0.8 ML SYR SC ×2 (07:56→19:59)
[2020-03-19] MEDS: Sucralfate 1 GM TAB PO ×4 (07:56→21:22)
[2020-03-19] MEDS: Escitalopram 20 MG TAB PO (07:56)
[2020-03-19] MEDS: Pantoprazole 40 MG VIAL IVP ×2 (07:57→19:58)
--- NOTE | 2020-03-19 09:06 | DI.US_ITS ---
APPROVED REPORT EXAM: Comprehensive 2D, Doppler, and color-flow Echocardiogram Patient Location: In-Patient Room/Bed: 226 Audograph Operator: Annalisa Kenny RDCS (AE) Indications: r/o Pulmonary HTN, H/0 Pulmonary Embolism Other Information Study Quality: Fair Conclusion Left Ventricle : The left ventricle is normal size. The left ventricular systolic function is normal. The left ventricular ejection fraction is within the normal range. There is normal left ventricular wall thickness. There is normal LV segmental wall motion. The left ventricular diastolic function is normal. LVEF is 50%. Right Ventricle : The right ventricle is normal size. The right ventricular systolic function is norm al. Estimated RVSP is 21 mmHg. Atria : The left atrium size is normal. The right atrium size is normal. Valves: There are no hemodynamically significant valvular lesions. Please see remainder of study for further details. Compared to study from 08/30/2019, there is no significant change. Wall motion Left Ventricle The left ventricle is normal size. The left ventricular systolic function is normal. The left ventric ular ejection fraction is within the normal range. There is normal left ventricular wall thickness. T here is normal LV segmental wall motion. The left ventricular diastolic function is normal. There is no ventricular septal defect visualized. LVEF is 50%. Right Ventricle The right ventricle is normal size. The right ventricular systolic function is normal. Atria The left atrium size is normal. The right atrium size is normal. The interatrial septum is intact wit h no evidence for an atrial septal defect. Aortic Valve The aortic valve is normal in structure. Aortic valve is trileaflet. There is no aortic valvular sten osis. No aortic regurgitation is present. Mitral Valve The mitral valve is normal in structure. No evidence of mitral valve stenosis. Trace mitral regurgita tion. Tricuspid Valve The tricuspid valve is normal in structure. There is no tricuspid valve stenosis. Trace to mild tricu spid regurgitation. Pulmonic Valve The pulmonary valve is normal in structure. There is no pulmonic valvular stenosis. Trace pulmonic re gurgitation. Great Vessels The aortic root is normal in size. Estimated RVSP is 21 mmHg. The ascending aorta is mildly dilated. Aortic arch is normal in caliber. IVC is normal in size and collapses >50% with inspiration. Pericardium Trace pericardial effusion. 2D Dimensions IVSD d PLAX 0.96 cm F: 0.6-1.0 LV Vol A2C d MOD 55.0 mL LVPW d PLAX 0.92 cm F: 0.6 - 1.0 LV Vol A4C d MOD 56.1 mL LVID d PLAX 4.41 cm F: 3.8 - 5.2 LA vol/ BSA A2C s A-L 15.8 mL/m2 LVDs 3.30 cm F: 2.2 - 3.5 LA vol/ BSA A4C s A-L 19.3 mL/m2 Ao Root d 2.60 cm F: 2.7 - 3.3 LA Vol/ BSA Biplane s A-L 19.3 mL/m2 RA Area A4C 13.27 cm2 LA Area A4C s MOD 15.05 cm2 RA Vol/ BSA A4C s A-L 18.9 mL/m2 LA Area A2C s MOD 12.37 cm2 Ao Asc Diam d 3.31 cm F: 2.3 - 3.1 LV EF A4C MOD 51.3 % LV EF Teichholz 48.3 % LV EF A2C MOD 50.3 % LVEF (Hill's) 50.22 % F: 54 - 74 LV EF Biplane MOD 50.2 % LV Volume 42.89 mL F: 46 - 106 SV 28.06 mL LV Volume Index 22.93 mL/m2 F: 29 - 61 SV Index 15.01 mL/m2 LV Vol Biplane MOD 55.9 mL FS 24.15 % M-Mode TAPSE 1.28 cm (M/F) >1.7 LV Diastology MV E' medial 0.073 (>0.07 m/s) E/A Ratio 0.6 LV E/e MED 5.55 (<14) MV E Vmax 0.40 (0.4-1.3 m/s) MV E' lateral 0.060 (>0.1 m/s) MV A Vmax 0.65 (0.4-1.3 m/s) LV E/e LAT 6.65 (<14) MV E/A Ratio 0.58 MV E/E' medial 5.55 MV E/E' lateral 6.68 Aortic Valve LVOT Area 3.09 cm2 AoV Area Vmax 2.70 cm2 LVOT Vmax 0.97 m/s AoV Area/ BSA (Vmax) 1.44 cm2/m2 LVOT Mean Teddy. 0.59 m/s GARY Mean Teddy. 2.42 cm2 LVOT Peak Grad 3.7 mmHg GARY Mean Teddy. Index 1.30 cm2/m2 LVOT Mean Grad 1.7 mmHg LVOT VTI 0.156 m LVOT Diam s 1.95 cm AoV Vmax 1.11 m/s Velocity Ratio 0.87 AoV Mean Teddy. 0.75 m/s AoV Peak Grad 4.9 mmHg LVOT SV 48.08 mL AoV Mean Grad 2.6 mmHg AoV VTI 0.197 m AoV Area VTI 2.45 cm2 AoV Area/ BSA (VTI) 1.31 cm/m2 Mitral Valve MV DT 323 (160-240 msec) MV PHT 94 msec MV Area PHT 2.35 cm2 Pulmonary Valve PV Vmax 0.95 (0.5-1.5 m/s) RVOT Peak Gr. 3.49 mmHg PV Peak Grad 3.6 mmHg RVOT Mean Gr. 1.45 mmHg PV Mean Grad 1.9 mmHg RVOT VTI 0.152 m PV VTI 0.165 m RVOT Vmax 0.93 m/s Tricuspid Valve TR Peak Grad 18.3 mmHg TR Vmax 2.14 m/s RA Pressure 3.00 mmHg RVSP (TR) 21.4 mmHg
[2020-03-19] MEDS: cefTRIAXone 1 GM/50 ML BAG IVPB (10:04)
[2020-03-19] MEDS: POTASSIUM CHLORIDE 20 MEQ/100 ML BAG 50 MEQ IVPB ×4 (11:00→18:30)
[2020-03-19 11:45] VITALS: BP 123/83; PULSE 81; RESP 16; TEMP 36.6; O2SAT 98
--- NOTE | 2020-03-19 15:17 | PDOC.CMPRO ---
Care Management Progress Note S/O: Martina remains on the CIWA protocol, scoring low numbers through the day. She continues to be drowsy, and did not want to get for breakfast, but did ambulate in her room with a walker mid-morning. CM continues to follow. A: Martina is a 64 year old female admitted to [facility] 03/14/20 for Vomiting P: Anticipate Martina will be discharged home with no new services when medically cleared by provider. It is possible she may seek treatment for alcohol addiction-resources to be reviewed. She will follow up with her PCP, community providers, and discharge plan of care as directed. Martina will be driven home by [facility] to be coordinated by CM when ready. CM will continue to support Martina and assess for discharge planning needs.
--- NOTE | 2020-03-19 15:36 | CHAPLAIN ---
Martina was resting in bed when I visited. She said she hasn't thrown up recently and that is an improvement, but she still doesn't feel well. She was looking to take a nap, so I didn't stay long. I explained my role and offered support.
--- NOTE | 2020-03-19 15:56 | W.PM.PROGNOT ---
Date of Service Date of service: 03/19/20 Time of Service: 15:56 Assessment and Plan Assessment and plan (1) Alcohol withdrawal delirium: Status: Acute Assessment and plan: Continue monitoring on CIWA with prn ativan. Hallucinations stopped. Continue banana bag daily. (2) Pancreatitis: Status: Acute Assessment and plan: Likely acute on chronic, in addition to have alcoholic gastritis. Due to worsening abdominal pain, de-escalate diet to just water/nathan gale. (3) Abdominal pain, vomiting, and diarrhea: Status: Resolved Assessment and plan: Likely multifactorial: pancreatitis, constipation / obstipation, gastritis. Continue bowel regimen, PPI/carafate. (4) Hypokalemia: Status: Acute Assessment and plan: Replete and recheck in am. Monitor magnesium. (5) Hypomagnesemia: Status: Resolved Assessment and plan: Recheck in am (6) UTI (urinary tract infection): Status: Acute Assessment and plan: Present on admission. Mixed cx, with klebsiella growing. Continue ceftriaxone (7) History of pulmonary embolus (PE): Status: Chronic Assessment and plan: Continue anticoagulation (lovenox as not reliably tolerating PO). Echo without significant pulmonary hypertension, EF 50%, normal diastolic dysfunction, no valvular lesions. (8) DVT prophylaxis: Status: Acute Assessment and plan: full dose lovenox (9) Discharge planning issues: Status: Acute Assessment and plan: Full code Continues to require hospitalization. Subjective Subjective Interval history since last seen: Ms Kuhn is much more clear today - not hallucinating, not tremulous. However, she is now describing an 8/10 epigastric/r-sided abdominal pain. She didn't think that eating clear liquids for lunch made it worse, but we agreed that we will back track to just water and nathan gale for the rest of the day. She reports dizziness when she tries to get up, denies chest pain, shortness of breath. Nausea has resolved. Exam Narrative Exam Narrative: General: Middle-aged female, A&Ox3, very alert and appropriate HEENT: EOMI, MMM Heart: RRR, no m/r/g Lungs: coarse breath sounds, diminished at B bases Abdomen: soft, Tender in LUQ/epigastrium/RUQ Extremities:no edema BLE's. Objective Last Vital Signs Temp 36.6 C 03/19/20 11:45 Pulse 81 01/25/21 11:45 Resp 16 03/19/20 11:45 BP 123/83 03/19/20 11:45 Pulse Ox 98 03/19/20 11:45 Laboratory Results - last 24 hr 03/19/20 03/19/20 06:20 06:20 WBC 4.28 L RBC 3.99 Hgb 14.6 Hct 43.7 MCV 109.5 H MCH 36.6 H MCHC 33.4 RDW 12.3 Plt Count 229 MPV 10.0 Immature Gran % 0.7 Neutrophils % 51.7 Lymphocytes % 35.5 Monocytes % 8.6 Eosinophils % 2.6 Basophils % 0.9 Nucleated RBC % 0 Absolute Neutrophils 2.21 Absolute Lymphocytes 1.52 Absolute Monocytes 0.37 Absolute Eosinophils 0.11 Absolute Basophils 0.04 Sodium 140 Potassium 2.9 L* Chloride 107 Carbon Dioxide 24.6 Anion Gap 8.4 BUN 2 L Creatinine 0.80 Estimated GFR/1.73 m2 >= 60.00 Glucose 81 Calcium 8.5 Magnesium 2.0 Objective Narrative Objective Narrative: echo: Left Ventricle : The left ventricle is normal size. The left ventricular systolic function is normal. The left ventricular ejection fraction is within the normal range. There is normal left ventricular wall thickness. There is normal LV segmental wall motion. The left ventricular diastolic function is normal. LVEF is 50%. Right Ventricle : The right ventricle is normal size. The right ventricular systolic function is normal. Estimated RVSP is 21 mmHg. Atria : The left atrium size is normal. The right atrium size is normal. Valves: There are no hemodynamically significant valvular lesions. Please see remainder of study for further details. Compared to study from 08/30/2019, there is no significant change.
[2020-03-19 16:22] VITALS: BP 126/85; PULSE 82; RESP 18; TEMP 36.6; O2SAT 98
[2020-03-19 16:33] LABS: Anion Gap 6.9 mmol/L (3-11); BUN 1 mg/dL (7-18); CO2 23.1 mmol/L (21.0-32.0); CREATININE 0.74 mg/dL (0.55-1.02); Calcium 8.2 mg/dL (8.5-10.1); Chloride 107 mmol/L (98-107); Glucose 101 mg/dL (74-106); Potassium 3.6 mmol/L (3.5-5.1); Sodium 137 mmol/L (136-145)
[2020-03-20] MEDS: DEXTROSE 5%-0.9% SALINE 1,000 ML 125 ML IV ×3 (01:38→16:57)
[2020-03-20] MEDS: Normal Saline Flush 10 ML SYR IVP ×5 (03:18→22:17)
[2020-03-20] MEDS: HYDROmorphone 2 MG/ML VIAL 0.5 MG IVP ×5 (03:19→22:16)
[2020-03-20] MEDS: Levothyroxine 100 MCG TAB PO (06:10)
[2020-03-20 07:31] LABS: Abs Immature Grans 0.02 10^3/uL (0.0-0.06); Absolute Basophil Count 0.03 10^3/uL (0.0-0.2); Absolute Eosinophil Count 0.13 10^3/uL (0.0-0.7); Absolute Lymphocyte Count 1.29 10^3/uL (1.2-3.4); Absolute Monocyte Count 0.34 10^3/uL (0.1-0.8); Absolute Neutrophil Count 2.94 10^3/uL (1.2-6.7); Basophils % 0.6; Eosinophils % 2.7; HCT 40.3 % (36.0-46.0); HGB 13.6 g/dL (11.2-15.7); Immature Grans % 0.4; Lymphocytes % 27.2; MCH 36.2 pg (27.0-33.0); MCHC 33.7 % (32.0-36.0); MCV 107.2 fL (80-95); MPV 9.8 fL (8.0-11.0); Monocytes % 7.2; Neutrophils % 61.9; Nucleated RBC 0 %; Platelet Count 209 10^3/uL (130-400); RBC 3.76 10^6/uL (3.93-5.22); RDW 12.5 % (11.7-14.6); RDW-SD 50.1 fL; WBC 4.75 10^3/uL (4.4-10.8)
[2020-03-20 07:46] LABS: Anion Gap 8.5 mmol/L (3-11); BUN 2 mg/dL (7-18); CO2 22.5 mmol/L (21.0-32.0); CREATININE 0.66 mg/dL (0.55-1.02); Calcium 8.5 mg/dL (8.5-10.1); Chloride 110 mmol/L (98-107); Glucose 106 mg/dL (74-106); Magnesium 1.8 mg/dL (1.8-2.4); Potassium 3.4 mmol/L (3.5-5.1); Sodium 141 mmol/L (136-145)
[2020-03-20 07:48] VITALS: BP 145/86; PULSE 85; RESP 18; TEMP 36.5; O2SAT 98
[2020-03-20] MEDS: Enoxaparin 80 MG/0.8 ML SYR SC ×2 (08:18→19:47)
[2020-03-20] MEDS: Sucralfate 1 GM TAB PO ×4 (08:18→21:15)
[2020-03-20] MEDS: Nicotine 21 MG/24 HR PATCH TD (08:18)
[2020-03-20] MEDS: ARIPiprazole 5 MG TAB PO (08:18)
[2020-03-20] MEDS: Escitalopram 20 MG TAB PO (08:18)
[2020-03-20] MEDS: Pantoprazole 40 MG VIAL IVP ×2 (08:19→19:48)
[2020-03-20] MEDS: POTASSIUM CHLORIDE 20 MEQ/100 ML BAG 50 MEQ IVPB ×2 (09:26→11:13)
[2020-03-20] MEDS: MAGNESIUM SULFATE 2 GM/50 ML BAG IVPB (09:27)
--- NOTE | 2020-03-20 09:55 | PT.INIE ---
Date of service: 03/20/20 Time of Service: 09:55 PT Notes Visit Reasons: VOMITING Physical Therapy Inpatient Initial Evaluation Date: 03/20/2020 Referring Doctor: Carlyn Guerrero MD PT Orders: PT CONSULT: Limited ability Precautions: Fall. Standard. Activity as tolerated. Patient Profile/Admitting Diagnosis: Martina is a 64-year-old female who presented to the ED on 03/14/2020 with chief complaints of lower abdominal pain, nausea, vomiting, and diarrhea 10 days prior to hospital admission. Patient is diagnosed with EtOH withdrawal delirium, urinary tract infection, pancreatitis, hypokalemia, and hypomagnesemia. PMHX: Medical History Alcohol abuse Anxiety Depression Hypothyroidism Pulmonary emboli Ulcerative colitis Surgical History Hx of section Hx of colonoscopy Social History/Home Situation: Lives alone in an apartment building with 4 steps to enter and rails on both sides. Independent with community ambulation without an assistive device. Independent with meals, laundry, housekeeping, and grocery shopping prior to admission. Equipment Owned/DME: None Subjective: Agreeable to PT consult. Reports 7/10 abdominal pain that is constant. Reports increasing burning sensation in all the fingers in both hands as well as in the soles of her feet and her toes that started with this admission. Indicated that she had a restless night. Reports 1 episode of diarrhea early this morning. Objective: General Observation: IV in the left UE. Mental Status: Alert and oriented x 4 Pain: 7/10 pain in the abdominal area; significant burning and tingling fingers in bilateral hands and soles of feet ROM: Right Upper Extremity: Shoulder Flexion WFL. Shoulder abduction WFL. Elbow flexion WFL. Wrist flexion WFL. Opening and closing of hand WFL. Left Upper Extremity: Shoulder Flexion WFL. Shoulder abduction WFL. Elbow flexion WFL. Wrist flexion WFL. Opening and closing of hand WFL. Right Lower Extremity: Hip flexion WFL. Hip abduction WFL. Knee flexion WFL. Ankle dorsiflexion WFL. Ankle plantarflexion WFL. Left Lower Extremity: Hip flexion WFL. Hip abduction WFL. Knee flexion WFL. Ankle dorsiflexion WFL. Ankle plantarflexion WFL. Strength: Right Upper Extremity: Shoulder flexors 4/5. Shoulder abductors 4/5. Elbow flexors 5/5. Elbow extensors 5/5. [employer] strong. Left Upper Extremity: Shoulder flexors 4/5. Shoulder abductors 4/5. Elbow flexors 5/5. Elbow extensors 5/5. [employer] strong. Right Lower Extremity: Hip flexors 4-/5. Hip abductors 4-/5. Knee flexors 4-/5. Knee extensors 4-/5. Ankle dorsiflexors 4-/5. Ankle plantarflexors 4-/5. Left Lower Extremity: Hip flexors 4-/5. Hip abductors 4-/5. Knee flexors 4-/5. Knee extensors 4-/5. Ankle dorsiflexors 4-/5. Ankle plantarflexors 4-/5. Sensation: Burning and tingling in fingers of both hands and toes as well as soles of both feet. Bed Mobility/Transfers: Rolling standby assist Supine to sit standby assist with HOB at 45 degrees due to complaint of abdominal pain Sit to supine standby assist Sit to stand contact-guard assist Stand to sit contact-guard assist Bed to chair contact-guard assist Chair to bed contact-guard assist Gait: Guided patient through level surface ambulation of 100 feet using a front wheeled walker requiring contact-guard assist with full weight bearing with increased complaint of burning and bilateral soles as well as constant abdominal pain at 7/10. Poppy decreased due to pain complaint. No LOB. No SOB. Wheelchair follow was provided for safety. Balance: Static Sitting: Normal Dynamic Sitting: Normal Static Standing: Fair Dynamic Standing: Fair Special Tests: Mobility Limitations Standardized Measure [facility] 6 clicks Basic Mobility Inpatient Short Form: Raw Score: 18 CMS Score: 47% deficit Informed Consent/Education: Patient instructed in purpose of PT consult and plan of care. Assessment: Martina demonstrates functional mobility decline requiring the use of a front wheeled walker for all mobility ADL performance, decreased activity tolerance due to pain complaint, generalized weakness, impairment in balance due to sensory changes in bilateral soles of feet, and increased risk for falls. She will benefit from functional mobility training, progressive strengthening program time, and balance retraining in order to regain prior level of functional independence. Patient presents with clinical signs and symptoms consistent with current/admitting diagnoses that have resulted to mobility limitations, gait instability, generalized weakness, and impairment of motor control as demonstrated by the following impairment level findings: 1. Decreased strength to B LE major muscle groups 2. Impaired standing balance 3. Impaired activity tolerance 4. Stand burning and tingling sensation in bilateral hands and feet Impairments are contributing to the following functional limitations: 1. Dependent bed mobility skills 2. Increased dependence with transfers 3. Inability to safely ambulate without assistive device and physical assistance 4. Increase completion time for mobility ADL performance 5. Increased fall risk 6. Inability to negotiate steps alone safely Patient is assessed as a 53441 moderate complexity based on the following: History: 64-year-old female with impairment level findings, functional limitations, and past medical history as indicated above Examination: Demonstrable impairment in strength, balance, and mobility level with underlying impairments and functional limitations as documented above Presentation:Evolving Decision Makin moderate complexity Goals: Goals X1 week 1. Supine-Sit independent 2. Sit-Supine independent 3. Sit-Stand independent 4. Stand-Sit independent 5. Bed-Chair independent 6. Chair-Bed independent 7. Independent gait on level surface without the use of an assistive device for at least 300 feet without report of pain nor dyspnea 8. Independent stair negotiation while holding onto bilateral rails for at least 5 steps without report of pain nor dyspnea 9. Independent with home exercise program 10. Good static and dynamic standing balance/tolerance Plan of Care/Treatment Plan: 1-2x/day, 7 days/week x 1 week. Plan of care has been reviewed with the NYLON WINDER providing the service under Physical Therapy direction. Initiate Physical Therapy intervention for strengthening, bed mobility, transfers, gait, stairs, balance training, use of assistive device. DISCHARGE RECOMMENDATIONS: Patient will benefit from home health PT services in order to progress mobility level using least restrictive assistive ambulatory device, assess home safety, identify additional equipment needs, and establish a functional maintenance program that will increase ability of patient to remain at home. May continue to be in need of a front wheeled walker for community ambulation upon discharge to home. TREATMENT CODE/TIME: 76485 x 20 minutes, 36647 x 10 minutes beginning at 9:55 AM. Thank you for the opportunity to participate in the care of this patient. Toshia Buckley PT, DPT, CLT [facility] [place], [place]
--- NOTE | 2020-03-20 11:43 | W.PM.PROGNOT ---
Date of Service Date of service: 03/20/20 Time of Service: 11:43 Assessment and Plan Assessment and plan (1) Alcohol withdrawal delirium: Status: Acute Assessment and plan: Continue monitoring on CIWA with prn ativan. Hallucinations stopped. D/c banana bag and switch vitamins to PO. (2) Pancreatitis: Status: Acute Assessment and plan: Likely acute on chronic, in addition to have alcoholic gastritis. Abdominal pain changed in character and I do not believe that it can be attributed to pancreatitis anymore. Advance diet to low fat clears. If tolerates, trial soft bland low fat diet. Continue IVF. (3) Abdominal pain, vomiting, and diarrhea: Status: Resolved Assessment and plan: Likely multifactorial: pancreatitis, constipation / obstipation, gastritis. Continue bowel regimen, PPI/carafate. (4) Hypokalemia: Status: Acute Assessment and plan: Replete and recheck in am. Monitor magnesium. (5) Hypomagnesemia: Status: Acute Assessment and plan: Replete, Recheck in am (6) UTI (urinary tract infection): Status: Acute Assessment and plan: Present on admission. Mixed cx, with klebsiella growing. Repeat UA. Plan to d/c ceftriaxone today unless UA still positive. (7) History of pulmonary embolus (PE): Status: Chronic Assessment and plan: Continue anticoagulation (lovenox) Echo without significant pulmonary hypertension, EF 50%, normal diastolic dysfunction, no valvular lesions. (8) Peripheral neuropathy: Status: Acute Assessment and plan: H/o B12 deficiency (checking) as well as possibly due to EtOH. Replete B12, recheck level, start neurontin. (9) DVT prophylaxis: Status: Acute Assessment and plan: full dose lovenox (10) Discharge planning issues: Status: Acute Assessment and plan: Full code Nearing point of discharge Subjective Subjective Interval history since last seen: Ms Kuhn reports LLQ pain and urinary frequency without dysuria. Bladder scan is being checked. She also reports painful burning in her hands and feet, though they feel like they are cold to her (and they are warm). She denies dizziness, chest pain, shortness of breath, nausea. She is tolerating water/nathan gale. She has had a BM yesterday and today (small). Exam Narrative Exam Narrative: General: Middle-aged female, A&Ox3, very alert and appropriate, slightly tremulous HEENT: EOMI, MMM Heart: RRR, no m/r/g Lungs: diminished at B bases, using IS Abdomen: soft, Tender in LLQ today Extremities:no edema BLE's. Objective Last Vital Signs Temp 36.5 C 03/20/20 07:48 Pulse 85 03/20/20 07:48 Resp 18 03/20/20 07:48 BP 145/86 H 03/20/20 07:48 Pulse Ox 98 03/20/20 07:48 Laboratory Results - last 24 hr 03/19/20 03/20/20 03/20/20 16:05 07:00 07:00 WBC 4.75 RBC 3.76 L Hgb 13.6 Hct 40.3 MCV 107.2 H MCH 36.2 H MCHC 33.7 RDW 12.5 Plt Count 209 MPV 9.8 Immature Gran % 0.4 Neutrophils % 61.9 Lymphocytes % 27.2 Monocytes % 7.2 Eosinophils % 2.7 Basophils % 0.6 Nucleated RBC % 0 Absolute Neutrophils 2.94 Absolute Lymphocytes 1.29 Absolute Monocytes 0.34 Absolute Eosinophils 0.13 Absolute Basophils 0.03 Sodium 137 141 Potassium 3.6 D 3.4 L Chloride 107 110 H Carbon Dioxide 23.1 22.5 Anion Gap 6.9 8.5 BUN 1 L 2 L Creatinine 0.74 0.66 Estimated GFR/1.73 m2 >= 60.00 >= 60.00 Glucose 101 106 Calcium 8.2 L 8.5 Magnesium 1.8
[2020-03-20] MEDS: Thiamine 100 MG TAB PO (12:48)
[2020-03-20] MEDS: Gabapentin 100 MG CAP PO ×2 (14:29→19:48)
--- NOTE | 2020-03-20 14:46 | CHAPLAIN ---
Martina was resting in bed when I visited. She was cold so I offered to get a warm blanket for her and a prayer shawl which she seemed to appreciate. She does not seem interested in further conversation, but I will try again tomorrow.
[2020-03-20 16:16] VITALS: BP 142/90; PULSE 82; RESP 19; TEMP 36.4; O2SAT 97
--- NOTE | 2020-03-20 16:31 | PT.INTREAT ---
Date of service: 03/20/20 Time of Service: 16:31 PT Notes Visit Reasons: VOMITING Physical Therapy Inpatient Treatment Note Date: 03/20/2020 Precautions: Fall. Standard. Activity as tolerated. Subjective: Agreeable to PT consult. Continues to report 7/10 abdominal pain that is constant as well as of burning sensation in all the fingers in both hands and in the soles of her feet and toes. Denies nausea, vomiting, and diarrhea since last seen by this PT this morning. Objective: General Observation: IV in the left UE. Mental Status: Alert and oriented x 4 Pain: 7/10 pain in the abdominal area; significant burning and tingling fingers in bilateral hands and soles of feet Sensation: Burning and tingling in fingers of both hands and toes as well as soles of both feet. Bed Mobility/Transfers: Rolling independent Supine to sit independent with HOB at 45 degrees due to complaint of abdominal pain Sit to supine independent Sit to stand supervision Stand to sit supervision Bed to chair supervision Chair to bed supervision Gait: Guided patient through level surface ambulation of 250 feet using a front wheeled walker requiring standby assist with full weight bearing with continued complaint of burning in bilateral soles and hands but of less intensity as well as of constant abdominal pain at 7/10. Poppy decreased due to pain complaint. No LOB. No SOB. Wheelchair follow not needed. THERA EX: Instructed patient and performance of seated level exercises per exercise flow sheet with no increase in pain complaint. Balance: Static Sitting: Normal Dynamic Sitting: Normal Static Standing: Fair Dynamic Standing: Fair Assessment: Martina reports minimal improvement in sensory changes and by both hands and feet with intake of medication for peripheral neuropathy. Tolerated increased ambulation distance but remains limited by abdominal pain complaint at 7/10. She will continue to benefit from skilled services to facilitate return to home once medically cleared. DISCHARGE RECOMMENDATIONS: Patient will benefit from home health PT services in order to progress mobility level using least restrictive assistive ambulatory device, assess home safety, identify additional equipment needs, and establish a functional maintenance program that will increase ability of patient to remain at home. May continue to be in need of a front wheeled walker for community ambulation upon discharge to home. TREATMENT CODE/TIME: 29727 x 15 minutes, 68197 x 9 minutes beginning at 16:31 PM.
--- NOTE | 2020-03-20 17:07 | CMPROGNOTE_ITS ---
Care Management Progress Note S/O: Martina's diet is being advanced and she is making gains toward discharge, per MD. Martina reports she is feeling better and has an appetite, she shares that she is currently eating a popcicle and Jell-O. Martina shares that she resides alone in [facility]. She talks about her one year old grandson that she has been unable to hold for months, but shares that she gets to see pictures and do drive-bys. She states she is currently struggling with transportation as she need to coordinate trips for groceries and laundry. CM reviews community based supports, as well as sobriety supports. Martina shares that she has sought services before for her alcohol use including inpatient and outpatient supports. She states that she has done this within the last five years. She answers questions posed but is not fully forthcoming-and doesn't not offer additional information. When reviewing high school academic coach support, Martina states Sure, I'm open to anything. CM paged high school academic coach and provided case review including current social and environmental stressors and patient interest in possible service attachment. CM continues to follow. A: Martina is a 64 year old female admitted to [facility] 03/14/20 for Vomiting P: Anticipate Martina will be discharged home with no new services when medically cleared by provider. She will follow up with her PCP, community providers including high school academic coach, and discharge plan of care as directed. Martina will be driven home by [facility] to be coordinated by CM when ready.
[2020-03-20 19:33] LABS: Bilirubin Negative (Negative); Blood Negative (Negative); Clarity Clear (Clear); Glucose Negative (Negative); Ketones Negative (Negative); Leukocyte Esterase Small (Negative); Nitrite Negative (Negative); Urobilinogen 0.2 EU/dL (Up TO 0.2)
[2020-03-20 20:17] LABS: Bacteria Negative HPF (Negative); C & S Indicated? Yes; Casts Negative LPF (Negative); Crystals Negative HPF (Negative); Epithelial Cells Few HPF (Negative); Mucus Negative (Negative); Other Cells Negative (Negative); RBC Negative HPF (0-2); WBC 0-2 HPF (0-5)
[2020-03-20 22:41] VITALS: BP 110/69; PULSE 80; RESP 18; TEMP 36.9; O2SAT 96
[2020-03-21] MEDS: DEXTROSE 5%-0.9% SALINE 1,000 ML 125 ML IV ×3 (00:26→18:17)
[2020-03-21] MEDS: Levothyroxine 100 MCG TAB PO (05:14)
[2020-03-21] MEDS: HYDROmorphone 2 MG/ML VIAL 0.5 MG IVP (06:17)
[2020-03-21] MEDS: Normal Saline Flush 10 ML SYR IVP ×3 (06:18→19:55)
[2020-03-21 07:00] VITALS: BP 147/93; PULSE 84; RESP 18; TEMP 36.6; O2SAT 94
[2020-03-21 07:24] LABS: Anion Gap 5.5 mmol/L (3-11); BUN 1 mg/dL (7-18); CO2 22.5 mmol/L (21.0-32.0); CREATININE 0.64 mg/dL (0.55-1.02); Calcium 8.1 mg/dL (8.5-10.1); Chloride 110 mmol/L (98-107); Glucose 108 mg/dL (74-106); Magnesium 1.6 mg/dL (1.8-2.4); Potassium 3.3 mmol/L (3.5-5.1); Sodium 138 mmol/L (136-145)
[2020-03-21 07:53] LABS: Vitamin B12 629 pg/mL (193-986)
[2020-03-21] MEDS: Enoxaparin 80 MG/0.8 ML SYR SC ×2 (08:34→19:54)
[2020-03-21] MEDS: ARIPiprazole 5 MG TAB PO (08:35)
[2020-03-21] MEDS: Pantoprazole 40 MG VIAL IVP ×2 (08:35→19:55)
[2020-03-21] MEDS: Thiamine 100 MG TAB PO (08:35)
[2020-03-21] MEDS: Nicotine 21 MG/24 HR PATCH TD (08:35)
[2020-03-21] MEDS: Sucralfate 1 GM TAB PO ×4 (08:35→21:16)
[2020-03-21] MEDS: Escitalopram 20 MG TAB PO (08:35)
[2020-03-21] MEDS: Multivitamin w/Minerals TAB 1 TAB PO (08:35)
[2020-03-21] MEDS: Cyanocobalamin 500 MCG TAB 1000 MCG PO (08:35)
[2020-03-21] MEDS: Gabapentin 100 MG CAP PO ×3 (08:35→19:53)
--- NOTE | 2020-03-21 11:23 | DI.RAD_ITS ---
EXAM: 2D digital imaging was performed. CLINICAL HISTORY: pancreatitis, ?ileus. COMPARISON: CT CT CHEST PE ABD PELVIS W from 03/14/2020 TECHNIQUE: Supine views of the abdomen performed. FINDINGS: BOWEL GAS PATTERN: Mildly dilated loop of small bowel in the left mid abdomen. Mild amount of gas is seen in the colon which contains small air-fluid levels. There is no significant stool. Findings are consistent with a mild ileus. There is no free air. CALCIFICATIONS: No radiopaque calcifications. OSSEOUS STRUCTURES: Normal for age. OTHER FINDINGS: Lung bases are clear. IMPRESSION: Mild small bowel dilatation, consistent with mild ileus. DATA REPOSITORY: RADIATION DOSE DELIVERED:
[2020-03-21] MEDS: MAGNESIUM SULFATE 4 GM/100 ML BAG IVPB (11:34)
[2020-03-21] MEDS: oxyCODONE 5 mg/Acetaminophen 325 mg TAB 1 TAB PO ×2 (12:44→19:12)
--- NOTE | 2020-03-21 13:34 | PT.INTREAT ---
Date of service: 03/21/20 Time of Service: 13:34 PT Notes Visit Reasons: VOMITING Physical Therapy Inpatient Treatment Note Date: 03/21/2020 Precautions: Fall. Standard. Activity as tolerated. Subjective: Indicated that she did not have a good response to initial liquid diet at breakfast which resulted to vomiting episode and refusal for PT morning session. Is feeling a lot better this afternoon and is agreeable to PT session. Reported significantly decreased burning/tingling in bilateral hands and soles of feet this afternoon. Objective: General Observation: IV in the left UE. Mental Status: Alert and oriented x 4 Pain: None reported, minimal burning/tingling in B hands and soles of feet Sensation: Burning and tingling in fingers of both hands and toes as well as soles of both feet. Bed Mobility/Transfers: Rolling independent Supine to sit independent with HOB at 45 degrees due to complaint of abdominal pain Sit to supine independent Sit to stand independent Stand to sit independent Bed to chair independent Chair to bed independent Gait: Guided patient through level surface ambulation of 300 feet using a front wheeled walker requiring standby assist with full weight bearing with decreased complaint of paresthesias in bilateral hands and soles of feet. Poppy very much improved. No LOB. No SOB. No abdominal pain complaint. Stairs: Tolerated up-and-down 6 x 4 inch steps and 4 x 6 inch steps while holding onto 1 rail using step over step pattern with supervision assist with no increase in abdominal pain. THERA EX: Instructed patient and performance of seated level exercises per exercise flow sheet with no increase in pain complaint. Balance: Static Sitting: Normal Dynamic Sitting: Normal Static Standing: Good Dynamic Standing: Fair Assessment: Martina significant improvement with paresthesias in bilateral hands and bilateral soles of feet today. She demonstrates much improved activity tolerance for exercises and covered a longer distance this afternoon. Will assess readiness for assistive device upgrade to single-point cane or no AD tomorrow as appropriate. DISCHARGE RECOMMENDATIONS: Patient will benefit from home health PT services in order to progress mobility level using least restrictive assistive ambulatory device, assess home safety, identify additional equipment needs, and establish a functional maintenance program that will increase ability of patient to remain at home. May continue to be in need of a front wheeled walker for community ambulation upon discharge to home. TREATMENT CODE/TIME: 64890 x 20 minutes beginning at 13:34 PM.
--- NOTE | 2020-03-21 14:06 | PGE_ITS ---
Date of Service Date of service: 03/21/20 Time of Service: 14:06 Assessment and Plan Assessment and plan (1) Ileus: Status: Acute Assessment and plan: By acute abdominal series. Made NPO except ice chips and sips of water. Consult general surgery. Consider CT abdomen. (2) Alcohol withdrawal delirium: Status: Acute Assessment and plan: CIWA scores of 0 and 2. Near resolution. Continue monitoring on CIWA with prn ativan. Hallucinations stopped. Continue PO vitamins. (3) Pancreatitis: Status: Resolved Assessment and plan: No longer having epigastric pain. However, this is likely the cause of the ileus. (4) Abdominal pain, vomiting, and diarrhea: Status: Resolved Assessment and plan: Likely multifactorial: pancreatitis, constipation / obstipation, gastritis, and now ileus. Continue bowel regimen, PPI/carafate. (5) Hypokalemia: Status: Acute Assessment and plan: Replete and recheck in am. Monitor magnesium. (6) Hypomagnesemia: Status: Acute Assessment and plan: Replete, Recheck in am (7) UTI (urinary tract infection): Status: Resolved Assessment and plan: Present on admission. Mixed cx, with klebsiella growing. Completed abx. (8) History of pulmonary embolus (PE): Status: Chronic Assessment and plan: Continue anticoagulation (lovenox) Echo without significant pulmonary hypertension, EF 50%, normal diastolic dysfunction, no valvular lesions. (9) Peripheral neuropathy: Status: Acute Assessment and plan: H/o B12 deficiency (checking) as well as possibly due to EtOH. Continue B12 supplementation and neurontin. (10) DVT prophylaxis: Status: Acute Assessment and plan: full dose lovenox (11) Discharge planning issues: Status: Acute Assessment and plan: Full code Continues to require hospitalization. Subjective Subjective Interval history since last seen: Ms Kuhn states that she had jello and coffee this morning which was followed by emesis. She feels better now, but continues to have LLQ pain. No epigastric pain or nausea now. Denies dizziness, chest pain, shortness of breath. Exam Narrative Exam Narrative: General: Middle-aged female, A&Ox3, no tremors, very calm, cooperative HEENT: EOMI, MMM Heart: RRR, no m/r/g Lungs: diminished at B bases Abdomen: soft, Tender in LLQ, more so today Extremities:no edema BLE's. Objective Last Vital Signs Temp 36.6 C 03/21/20 07:00 Pulse 84 03/21/20 07:00 Resp 18 03/21/20 07:00 BP 147/93 H 03/21/20 07:00 Pulse Ox 94 03/21/20 07:00 Laboratory Results - last 24 hr 03/20/20 03/21/20 03/21/20 19:20 06:30 06:30 Sodium 138 Potassium 3.3 L Chloride 110 H Carbon Dioxide 22.5 Anion Gap 5.5 BUN 1 L Creatinine 0.64 Estimated GFR/1.73 m2 >= 60.00 Glucose 108 H Calcium 8.1 L Magnesium 1.6 L Vitamin B12 629 Folate Urine Color Yellow Urine Clarity Clear Urine pH 6.0 Ur Specific [place] 1.020 Urine Protein Negative Urine Ketones Negative Urine Blood Negative Urine Nitrite Negative Urine Bilirubin Negative Urine Urobilinogen 0.2 Ur Leukocyte Esterase Small H Urine RBC Negative Urine WBC 0-2 Ur Epithelial Cells Few Urine Crystals Negative Urine Bacteria Negative Urine Casts Negative Urine Mucus Negative Urine Other Negative Ur Culture Indicated? Yes Urine Glucose Negative 03/21/20 06:30 Sodium Potassium Chloride Carbon Dioxide Anion Gap BUN Creatinine Estimated GFR/1.73 m2 Glucose Calcium Magnesium Vitamin B12 Folate 9.0 Urine Color Urine Clarity Urine pH Ur Specific [place] Urine Protein Urine Ketones Urine Blood Urine Nitrite Urine Bilirubin Urine Urobilinogen Ur Leukocyte Esterase Urine RBC Urine WBC Ur Epithelial Cells Urine Crystals Urine Bacteria Urine Casts Urine Mucus Urine Other Ur Culture Indicated? Urine Glucose Objective Narrative Objective Narrative: CXR: Mild small bowel dilatation, consistent with mild ileus.
[2020-03-21] MEDS: POTASSIUM CHLORIDE 20 MEQ/100 ML BAG 50 MEQ IVPB ×2 (14:35→16:58)
[2020-03-21 15:52] VITALS: BP 130/88; PULSE 88; RESP 18; TEMP 37; O2SAT 97
--- NOTE | 2020-03-21 17:21 | PDOC.CMPRO ---
- If Service Date Differs Date of service: 03/21/20 Time of Service: 17:21 Care Management Progress Note S/O: Martina was sitting up in bed when CM met with her. She stated that she is feeling ok now, but she did vomit earlier today. Per RN, she will meet with general surgery regarding a possible ileus. She was made NPO again, which she understands, but is frustrated with, as she stated that she hasn't had a real meal in two weeks. CM will continue to follow. A: Martina is a 64 year old female admitted to [facility] 03/14/20 for Vomiting P: Anticipate Martina will be discharged home with no new services when medically cleared by provider. She will follow up with her PCP, community providers including recovery auditor, and discharge plan of care as directed. Martina will be driven home by [facility] to be coordinated by CM when ready.
--- NOTE | 2020-03-21 17:28 | SCONE_ITS ---
Date of service: 03/21/20 Time of Service: 17:28 Assessment and Plan Assessment and plan (1) Ileus: Status: Acute Assessment and plan: 64 year old female with normal CT scan but slight increase in lipase on admission. Known to abuse alcohol. Admitted for pancreatitis vs gastritis. Since admission pain had improved and she was started on a diet. Epigastric pain resolved. This morning she had a bout of LLQ pain and emesis. Pain has now resolved. ABDO XRay with mild dilatation of the small bowel. Ileus secondary to Pancreatitis/Gastritis due to alcohol abuse. She also has a Historey of UC which doesn't seem to be treated Recommend continued NPO status, and bowel rest. Once patient starts passing flatus again then would start her on clear liquids. If there is concern for alcoholic gastritis then I would recommend a low acid diet and increase of omeprazole to 40 mg BID. If patients condition doesn't improve over the next 48 hours then please give us a call. (2) Ulcerative colitis: Status: Chronic Qualifiers: Ulcerative colitis location: unspecified ulcerative colitis location Digestive disease complication type: without complication Qualified Code(s): K51.90 - Ulcerative colitis, unspecified, without complications (3) Pancreatitis: Status: Resolved Qualifiers: Pancreatitis type: alcohol induced Acute pancreatitis complication: no infection or necrosis Chronicity: acute Qualified Code(s): K85.20 - Alcohol induced acute pancreatitis without necrosis or infection History of Present Illness History of Present Illness Chief Complaint: ileus Narrative: Mrs. Kuhn is a pleasant 64 year old female with a PMHx significant for alcohol abuse, hx of PE, PTSD and depression who was admitted on 03/14 for mild alcoholic pancreatitis vs gastritis. She was complaining of epigastric abdominal pain andd nausea/ vomiting for 2 weeks prior to admission. She had been doing Ok and was on a clear liquid . This morning after drinking coffee and eating jello she had another bout of emesis. She also complained of LLQ pain which lasted for 20 minutes. Patient also tells me that she has a history of Ulcerative Colitis. CT scan showed fatty infiltration of the colon c/w chronic colitis. It doesn't look like she is being treated for that at the moment. This evening she is comfortable. She has been NPO since this morning. She has no LLq pain anymore. She has not passed any flatus today. She did pass flatus yesterday. I reviewed CT scans and Abdominal XRay CT Scan: FINDINGS: The examination is limited due to patient motion artifact. CHEST: Pulmonary Arteries: No new filling defects are seen to suggest acute pulmonary emboli. Stable thrombi are seen in the right lower lobe pulmonary artery and segmental branches of the left lower lobe pulmonary arteries. Tracheobronchial tree: Patent where visualized. Mediastinum and Eli: No dominant adenopathy or fluid collection. Pulmonary parenchyma: The right lower lobe pulmonary infarct has decreased in size. The remaining areas of pulmonary infarction are stable. No new consol idations or pulmonary nodules or opacities are present. No architectural distortion. Pleura: No effusion or pneumothorax. Heart: The heart is not dilated. No coronary artery calcifications are seen. No pericardial effusion. Aorta: Thoracic aorta non-dilated. No dissection. Bones: Normal. ABDOMEN: Liver: Diffuse fatty infiltration of the liver. No measurable mass. Portal, Superior Mesenteric, and Splenic Veins: Unremarkable. Gallbladder and Biliary Tract: No radiodense calculus or dilation. Pancreas: Normal density, no abnormal calcifications or inflammatory process. Spleen: Normal. Adrenals: No masses seen. Kidneys: Normal size, contour and axis. No radiodense stones or obstructive uropathy. No masses seen. Abdominal Aorta: Abdominal portion non-dilated. Atherosclerosis. Bowel: No obstruction or bowel wall thickening. Appendix is unremarkable. Diffuse fatty infiltration of the wall of the colon. This can be seen with chronic diseases such as inflammatory bowel disease. No evidence of an acute inflammatory process. Peritoneal Cavity: No ascites, collection or mesenteric inflammatory response. Lymph Nodes: Within normal limits. Bones: Unremarkable. Soft Tissues: Several soft tissue round densities within the subcutaneous fat of the anterior abdominal wall. These may reflect multiple sites of injections of medications. PELVIS: Bladder: Mild diffuse thickening and enhancement of the wall of the urinary bladder. This may be due to underdistention. An infectious or inflammatory process cannot be excluded. Reproductive Organs: Unremarkable as visualized. Lymph Nodes: Within normal limits. Bones: There is an old T12 compression deformity. There is a new compression d eformity seen of the L3 vertebral body. This is age indeterminate. There is loss of approximately 25 percent of the height of the vertebral body noted. IMPRESSION: 1. Stable old filling defects from patient's prior pulmonary embolism. No new filling defects to suggest acute pulmonary embolism are seen. 2. Stable and decrease in size of a old pulmonary infarcts. No new consolidations are seen. 3. Thickening and enhancement of the wall of the urinary bladder. This may reflect an inflammatory infectious cystitis. 4. Age-indeterminate L3 superior endplate compression deformity which is new since the prior CT scan of the abdomen and pelvis from 09/04/2018. There is loss of approximately 25 percent of the height of the vertebral body. ABdo XRay: RAD:XR abdomen flat & upright EXAM: 2D digital imaging was performed. CLINICAL HISTORY: pancreatitis, ?ileus. COMPARISON: CT CT CHEST PE ABD PELVIS W from 03/14/2020 TECHNIQUE: Supine views of the abdomen performed. FINDINGS: BOWEL GAS PATTERN: Mildly dilated loop of small bowel in the left mid abdomen. Mild amount of gas is seen in the colon which contains small air-fluid levels. There is no significant stool. Findings are consistent with a mild ileus. There is no free air. CALCIFICATIONS: No radiopaque calcifications. OSSEOUS STRUCTURES: Normal for age. OTHER FINDINGS: Lung bases are clear. IMPRESSION: Mild small bowel dilatation, consistent with mild ileus. Consults Consult date: 03/21/20 Requesting physician: aCrlyn Guerrero Review of Systems Constitutional Constitutional: Denies fever(s), Denies headache(s) and Denies weight loss Eyes Eyes: Denies change in vision ENT Ears, Nose, Mouth, and Throat: Denies change in voice, Denies headache(s) and Denies hoarseness Cardiovascular Cardiovascular: Denies chest pain, Denies chest pain at rest, Denies irregular heart rhythm, Denies palpitations and Denies dyspnea Respiratory Respiratory: Denies cough and Denies dyspnea Gastrointestinal Gastrointestinal: Reports as per HPI Genitourinary Genitourinary: Reports system reviewed and no additional complaints, except as documented Musculoskeletal Musculoskeletal: Reports system reviewed and no additional complaints, except as documented Integumentary/Breasts Skin/Breast: Reports system reviewed and no additional complaints, except as documented Neurologic Neurologic: Reports system reviewed and no additional complaints, except as documented and Denies headache(s) Psychiatric Psychiatric: Reports system reviewed and no additional complaints, except as documented Endocrine Endocrine: Denies palpitations [facility] Medical History Alcohol abuse Anxiety Depression Hypothyroidism Pulmonary emboli Ulcerative colitis Surgical History Hx of section Hx of colonoscopy Family History Father Heart disease Paternal Grandmother Cancer Maternal Grandmother Cancer Social History Smoking/Tobacco Use Status: Current every day Tobacco Type: cigarettes Years smoked: 46 Tobacco: How many years used: 46 Smoking risk assessment performed?: Yes Alcohol Intake: current Alcohol Intake frequency: 0-2 drinks per day Alcohol type: wine Drug use: Daily Substance use type: marijuana Current gender identity: female Do you feel safe at home: Yes Do you feel safe in your relationship?: Yes Exam Const General: cooperative, comfortable and no acute distress Orientation: alert and oriented x3 HENMT Head: normocephalic and atraumatic Resp Effort & Inspection: normal respiratory effort Auscultation: clear to auscultation bilaterally Cardio Rate: regular rate Rhythm: regular rhythm GI Inspection: normal to inspection Palpation: soft, no hepatosplenomegaly and tender (mild periumbilical tenderness, no guarding or rebound) Auscultation: normal bowel sounds Results Last Vital Signs Temp 98.6 F 03/21/20 15:52 Pulse 88 03/21/20 15:52 Resp 18 03/21/20 15:52 BP 130/88 03/21/20 15:52 Pulse Ox 97 03/21/20 15:52 Labs Result diagrams: 03/20/20 07:00 03/21/20 06:30 Labs: Laboratory Results - last 24 hr 03/20/20 03/21/20 03/21/20 19:20 06:30 06:30 Sodium 138 Potassium 3.3 L Chloride 110 H Carbon Dioxide 22.5 Anion Gap 5.5 BUN 1 L Creatinine 0.64 Estimated GFR/1.73 m2 >= 60.00 Glucose 108 H Calcium 8.1 L Magnesium 1.6 L Vitamin B12 629 Folate Urine Color Yellow Urine Clarity Clear Urine pH 6.0 Ur Specific [place] 1.020 Urine Protein Negative Urine Ketones Negative Urine Blood Negative Urine Nitrite Negative Urine Bilirubin Negative Urine Urobilinogen 0.2 Ur Leukocyte Esterase Small H Urine RBC Negative Urine WBC 0-2 Ur Epithelial Cells Few Urine Crystals Negative Urine Bacteria Negative Urine Casts Negative Urine Mucus Negative Urine Other Negative Ur Culture Indicated? Yes Urine Glucose Negative 03/21/20 06:30 Sodium Potassium Chloride Carbon Dioxide Anion Gap BUN Creatinine Estimated GFR/1.73 m2 Glucose Calcium Magnesium Vitamin B12 Folate 9.0 Urine Color Urine Clarity Urine pH Ur Specific [place] Urine Protein Urine Ketones Urine Blood Urine Nitrite Urine Bilirubin Urine Urobilinogen Ur Leukocyte Esterase Urine RBC Urine WBC Ur Epithelial Cells Urine Crystals Urine Bacteria Urine Casts Urine Mucus Urine Other Ur Culture Indicated? Urine Glucose
[2020-03-21] MEDS: Docusate Sodium 100 MG CAP PO (19:53)
[2020-03-21 20:02] VITALS: BP 147/83; PULSE 85; RESP 18; TEMP 36; O2SAT 96
[2020-03-22 00:40] VITALS: BP 144/84; PULSE 75; RESP 20; TEMP 36.2; O2SAT 94
[2020-03-22] MEDS: DEXTROSE 5%-0.9% SALINE 1,000 ML 125 ML IV ×2 (00:56→14:58)
[2020-03-22] MEDS: oxyCODONE 5 mg/Acetaminophen 325 mg TAB 1 TAB PO ×4 (01:11→20:31)
[2020-03-22] MEDS: Levothyroxine 100 MCG TAB PO (05:25)
[2020-03-22 07:19] LABS: Anion Gap 9.2 mmol/L (3-11); BUN 1 mg/dL (7-18); CO2 22.8 mmol/L (21.0-32.0); Calcium 8.6 mg/dL (8.5-10.1); Chloride 108 mmol/L (98-107); Glucose 112 mg/dL (74-106); Magnesium 1.9 mg/dL (1.8-2.4); Potassium 3.3 mmol/L (3.5-5.1); Sodium 140 mmol/L (136-145)
[2020-03-22] MEDS: Pantoprazole 40 MG VIAL IVP ×2 (07:47→20:33)
[2020-03-22] MEDS: Enoxaparin 80 MG/0.8 ML SYR SC ×2 (07:48→20:43)
[2020-03-22] MEDS: Nicotine 21 MG/24 HR PATCH TD (07:48)
[2020-03-22] MEDS: Normal Saline Flush 10 ML SYR IVP ×2 (07:48→20:32)
[2020-03-22] MEDS: Docusate Sodium 100 MG CAP PO (07:49)
[2020-03-22] MEDS: Cyanocobalamin 500 MCG TAB 1000 MCG PO (07:50)
[2020-03-22] MEDS: Sucralfate 1 GM TAB PO ×4 (07:50→21:50)
[2020-03-22] MEDS: Gabapentin 100 MG CAP PO ×3 (07:50→20:31)
[2020-03-22] MEDS: Folic Acid 1 MG TAB PO (07:50)
[2020-03-22] MEDS: Multivitamin w/Minerals TAB 1 TAB PO (07:50)
[2020-03-22] MEDS: ARIPiprazole 5 MG TAB PO (07:50)
[2020-03-22] MEDS: Escitalopram 20 MG TAB PO (07:50)
[2020-03-22] MEDS: Thiamine 100 MG TAB PO (07:52)
[2020-03-22 08:01] VITALS: BP 127/82; PULSE 98; RESP 20; TEMP 35.9; O2SAT 98
--- NOTE | 2020-03-22 09:09 | DI.RAD_ITS ---
EXAM: XR ABDOMEN FLAT UPRIGHT CLINICAL HISTORY: follow up ileus. TECHNIQUE: 2D digital imaging was performed. COMPARISON: CR XR ABDOMEN FLAT UPRIGHT from 03/21/2020 FINDINGS: On the upright view there is single air-fluid level in the right abdomen noted. Possibly within a sm all bowel loop versus mobile cecum. There is air seen in the transverse colon. Stomach is not diste nded. There is no free air. No abnormal calcifications noted over the right and left upper abdomen is. There is a right-sided oval calcification measuring 11 x 5 millimeters at the level of the right transverse process L4, not having the appearance of a typical ureteral calculus. Possibly calcified lymph node or other finding. Small phlebolith in the right side of the pelvis is noted. IMPRESSION: I ileus pattern Right-sided calcifications described above. This is doubtful for a urinary tract calculus given its appearance and position. DATA REPOSITORY: RADIATION DOSE DELIVERED:
[2020-03-22] MEDS: MAGNESIUM SULFATE 1 GM/100 ML BAG IVPB (10:22)
[2020-03-22] MEDS: POTASSIUM CHLORIDE 20 MEQ/100 ML BAG 50 MEQ IVPB ×2 (11:31→14:00)
--- NOTE | 2020-03-22 11:54 | PT.INTREAT ---
Date of service: 03/22/20 Time of Service: 09:50 PT Notes Visit Reasons: VOMITING Inpatient Physical Therapy Treatment Note [facility] Date: 03/22/2020 PRECAUTIONS: Fall SUBJECTIVE: Martina is pleasant and agreeable to participating in PT. She states that she has been getting light-headed at times, as she has been NPO and limited to clear liquids for several days. OBJECTIVE: PAIN: No c/o pain BED MOBILITY/TRANSFERS Supine-sit: I Sit-supine: I Sit-stand: I Stand-sit: I Bed-Chair: I Chair-bed: I GAIT: Assistive Device: No AD Weight bearing: Full Assist: SBA in a.m.; SBA-S in p.m. Distance: 300' in a.m.; 500' in p.m. Deviation: Path deviation x1 in both a.m. and p.m. THEREX: Patient was instructed in ankle pumps, LAQ, seated marches, and hip abduction exercises, as per flow sheet. STAIRS: Up/down 3x4 and 2x6 using U rail and a step-to pattern with supervision TOILETING: Patient toileted independently ASSESSMENT: Patient tolerated session well, without complaint. She was able to demonstrate steady gait and pacing without use of assitive device, although path deviation x1, self-corrected, was observed. PLAN: Continue with global strengthening and gait training with least restrictive/no device for improved mobility and activity tolerance. TREATMENT CODE/TIME: Session 1: 20 minutes; [id number] Session 2: 10 minutes; [id number]
--- NOTE | 2020-03-22 12:43 | CMPROGNOTE_ITS ---
Care Management Progress Note S/O: Martina remains NPO and on bowel rest. Surgical consult noted untreated ulcerative colitis and recommended continuing NPO status until she starts passing flatus again, at which time she will be started on clear liquids. Low acid diet and possible omeprazole increase noted if concern for alcoholic gastitis. CM will continue to follow. A: Martina is a 64 year old female admitted to [facility] 03/14/20 for Vomiting P: Anticipate Martina will be discharged home with no new services when medically cleared by provider. She will follow up with her PCP, community providers including resource recovery specialist, and discharge plan of care as directed. Martina will be driven home by [facility] to be coordinated by CM when ready.
--- NOTE | 2020-03-22 15:19 | W.PM.PROGNOT ---
Date of Service Date of service: 03/22/20 Time of Service: 15:19 Assessment and Plan Assessment and plan (1) Ileus: Status: Acute Assessment and plan: Persists by imaging today. Keep NPO except ice chips and sips of water. No indication for CT, per general surgery. R/o C.Diff. (2) Alcohol withdrawal delirium: Status: Resolved Assessment and plan: D/c CIWA. Continue PO vitamins. (3) Pancreatitis: Status: Resolved Assessment and plan: No longer having epigastric pain. However, this is likely the cause of the ileus. Qualifiers: Chronicity: acute Pancreatitis type: alcohol induced Acute pancreatitis complication: no infection or necrosis Qualified Code(s): K85.20 - Alcohol induced acute pancreatitis without necrosis or infection (4) Abdominal pain, vomiting, and diarrhea: Status: Resolved Assessment and plan: Likely multifactorial: pancreatitis, constipation / obstipation, gastritis, and now ileus. Continue bowel regimen, PPI/carafate. Check C.Diff. (5) Hypokalemia: Status: Acute Assessment and plan: Replete and recheck in am. Monitor magnesium. (6) Hypomagnesemia: Status: Acute Assessment and plan: Replete, Recheck in am (7) UTI (urinary tract infection): Status: Resolved Assessment and plan: Present on admission. Mixed cx, with klebsiella growing. Completed abx. (8) History of pulmonary embolus (PE): Status: Chronic Assessment and plan: Continue anticoagulation (lovenox) Echo without significant pulmonary hypertension, EF 50%, normal diastolic dysfunction, no valvular lesions. (9) Peripheral neuropathy: Status: Acute Assessment and plan: Painful, improved with initiation of neurontin. H/o B12 deficiency as well as due to EtOH. Continue B12 supplementation and neurontin. (10) Diarrhea: Status: Acute Assessment and plan: Could be part of ileus. R/o C.Diff which could also have caused an ileus. (11) DVT prophylaxis: Status: Acute Assessment and plan: full dose lovenox (12) Discharge planning issues: Status: Acute Assessment and plan: Full code Continues to require hospitalization. Subjective Subjective Interval history since last seen: Ms Kuhn continues to report LLQ pain. She denies dizziness, chest pain, shortness of breath, nausea. Had several bouts of diarrhea overnight. Oral pain meds work. Not withdrawing from alcohol. Exam Narrative Exam Narrative: General: Middle-aged female, A&Ox3, no tremors, very calm, cooperative HEENT: EOMI, MMM Heart: RRR, no m/r/g Lungs: diminished at B bases Abdomen: soft, Tender in LLQ, hyperactive bowel sounds Extremities:no edema BLE's. Objective Last Vital Signs Temp 35.9 C L 03/22/20 08:01 Pulse 98 H 03/22/20 08:01 Resp 20 03/22/20 08:01 BP 127/82 03/22/20 08:01 Pulse Ox 98 03/22/20 08:01 Laboratory Results - last 24 hr 03/22/20 06:49 Sodium 140 Potassium 3.3 L Chloride 108 H Carbon Dioxide 22.8 Anion Gap 9.2 BUN 1 L Creatinine 0.70 Estimated GFR/1.73 m2 >= 60.00 Glucose 112 H Calcium 8.6 Magnesium 1.9 Objective Narrative Objective Narrative: Acute abdominal series: ileus pattern Right-sided calcifications described above. This is doubtful for a urinary tract calculus given its appearance and position.
--- NOTE | 2020-03-22 15:54 | W.PM.PROGNOT ---
Documented by User: GRAYSON Chavira 03/22/20 15:57 Date of Service Date of service: 03/22/20 Time of Service: 15:54 Assessment and Plan Assessment and plan (1) Ileus: Status: Acute Assessment and plan: Patient expresses passing stool yesterday. Bowel sounds continue to be hypoactive. Encouraged her to continue with sips of water and ice chips along with ambulation. She is no passing flatus. Once passing flatus and stool, suggest slowly progressing her diet. Subjective Subjective Interval history since last seen: Patient reports that she had a bout of diarrhea last night. Denies passing any flatus. Expressed having abdominal pain in her LLQ. Denies having any nausea or vomiting. Exam Const General: cooperative, healthy appearing and comfortable Orientation: alert and oriented x3 Resp Effort & Inspection: normal respiratory effort, no audible wheezes and no cough GI Inspection: normal to inspection Palpation: soft, no guarding and tender in the LLQ and in the LUQ Auscultation: hypoactive bowel sounds Objective Last Vital Signs Temp 35.9 C L 03/22/20 08:01 Pulse 98 H 03/22/20 08:01 Resp 20 03/22/20 08:01 BP 127/82 03/22/20 08:01 Pulse Ox 98 03/22/20 08:01 Laboratory Results - last 24 hr 03/22/20 06:49 Sodium 140 Potassium 3.3 L Chloride 108 H Carbon Dioxide 22.8 Anion Gap 9.2 BUN 1 L Creatinine 0.70 Estimated GFR/1.73 m2 >= 60.00 Glucose 112 H Calcium 8.6 Magnesium 1.9 Documented by User: Sherlyn Balbuena DO 03/22/20 21:45 Assessment and Plan Assessment and plan (1) Chronic pulmonary embolism: Status: Acute (2) Pulmonary infarct: Status: Acute (3) Diarrhea: Status: Acute (4) LUQ abdominal pain: Status: Acute Assessment and plan: unclear etiology for A. pain. No signs of chronic pancreatitis on CT repeat lipase ileus vs SBO supportive care
[2020-03-22 17:43] VITALS: BP 144/82; PULSE 89; RESP 18; TEMP 36.5; O2SAT 98
[2020-03-22 19:10] LABS: C Diff PCR Negative (Negative)
[2020-03-22 23:09] VITALS: BP 131/80; PULSE 86; RESP 16; TEMP 36.8; O2SAT 97
--- NOTE | 2020-03-23 | DI.CT_ITS ---
EXAM: CT ABDOMEN PELVIS W CLINICAL HISTORY: LLQ pain, persistent, despite resolution of ileus. TECHNIQUE: Imaging Protocol: Axial computed tomography images with coronal and sagittal reformatted images were created and reviewed. CONTRAST MATERIAL: 100 cc Omnipaque 350. Oral contrast. COMPARISON: CT CT CHEST PE ABD PELVIS W from 03/14/[address] CHEST PE ABD PELVIS W from 03/14/2020 CR XR ABDOMEN FLAT UPRIGHT from 03/23/2020 FINDINGS: ABDOMEN: Lung Bases: Stable appearance of bilateral basilar opacities. Liver: Stable fatty infiltration.. No measurable mass. Gallbladder and biliary tract: No radiodense calculus or dilation. Pancreas: Normal density, no calcifications or inflammatory process. Spleen: Normal. Kidneys: Normal size, contour and axis. No radiodense stones or obstructive uropathy. No masses seen. Adrenal glands: No masses seen. Abdominal Aorta: Abdominal portion non-dilated. Mild calcification. Abdominal wall: Injection sites in the anterior subcutaneous fat. PELVIS: Bladder: Symmetric distention, no gross wall thickening. Bowel: The stomach, small bowel and colon are well opacified with oral contrast. No obstruction or b owel wall thickening. Normal appendix. No significant diverticulosis. Peritoneal cavity: No ascites, collection or mesenteric inflammatory response. Bones: Stable compression fractures of T12 and L3. Reproductive: Stable left ovarian calcification. IMPRESSION: No acute abnormality. Stable chronic findings as mentioned above. RADIATION DOSE DELIVERED: 791.48mGy.cm Total DLP DATA REPOSITORY: All CT scans at this facility are submitted to the National Radiology Data Registry (NRDR) Dose Index Registry (DIR) with the [employer] ([employer]). RADIATION OPTIMIZATION: All CT scans at this facility use at least one of these dose optimization te chniques: automated exposure control; mA and/or kV adjustment per patient size (includes targeted exa ms where dose is matched to clinical indication); or iterative reconstruction.
[2020-03-23] MEDS: DEXTROSE 5%-0.9% SALINE 1,000 ML 125 ML IV ×3 (00:30→16:41)
[2020-03-23] MEDS: Levothyroxine 100 MCG TAB PO (05:28)
[2020-03-23 07:21] LABS: Platelet Count 272 10^3/uL (130-400)
[2020-03-23 07:25] VITALS: BP 130/79; PULSE 88; RESP 17; TEMP 35.5; O2SAT 99
[2020-03-23 07:45] LABS: Anion Gap 10.2 mmol/L (3-11); BUN 1 mg/dL (7-18); CO2 21.8 mmol/L (21.0-32.0); CREATININE 0.8 mg/dL (0.55-1.02); Calcium 8.7 mg/dL (8.5-10.1); Chloride 108 mmol/L (98-107); Glucose 116 mg/dL (74-106); Potassium 3.2 mmol/L (3.5-5.1); Sodium 140 mmol/L (136-145)
[2020-03-23 07:46] LABS: Lipase 199 U/L (73-393); Magnesium 1.5 mg/dL (1.8-2.4)
[2020-03-23 08:06] LABS: D-Dimer 444 ng/mlFEU (<500)
[2020-03-23] MEDS: Escitalopram 20 MG TAB PO (08:58)
[2020-03-23] MEDS: Sucralfate 1 GM TAB PO ×4 (08:58→21:51)
[2020-03-23] MEDS: Multivitamin w/Minerals TAB 1 TAB PO (08:59)
[2020-03-23] MEDS: Folic Acid 1 MG TAB PO (08:59)
[2020-03-23] MEDS: Thiamine 100 MG TAB PO (08:59)
[2020-03-23] MEDS: Cyanocobalamin 500 MCG TAB 1000 MCG PO (08:59)
[2020-03-23] MEDS: Gabapentin 100 MG CAP PO ×2 (08:59→13:31)
[2020-03-23] MEDS: ARIPiprazole 5 MG TAB PO (08:59)
[2020-03-23] MEDS: Docusate Sodium 100 MG CAP PO (08:59)
--- NOTE | 2020-03-23 09:21 | DI.RAD_ITS ---
EXAM: XR ABDOMEN FLAT UPRIGHT CLINICAL HISTORY: ileus vs SBO. TECHNIQUE: 2D digital imaging was performed. COMPARISON: CR XR ABDOMEN FLAT UPRIGHT from 03/22/2020 FINDINGS: On the upright view there is no evidence of free air. Stomach is not distended. No obvious bowel ob struction evident on today's images. No abnormal calcifications in soft tissues. IMPRESSION: DATA REPOSITORY: RADIATION DOSE DELIVERED:
[2020-03-23] MEDS: Normal Saline Flush 10 ML SYR IVP ×3 (09:39→21:50)
[2020-03-23] MEDS: POTASSIUM CHLORIDE 20 MEQ/100 ML BAG 50 MEQ IVPB ×2 (09:40→12:14)
[2020-03-23] MEDS: Nicotine 21 MG/24 HR PATCH TD (09:41)
[2020-03-23] MEDS: Pantoprazole 40 MG VIAL IVP ×2 (09:41→21:51)
[2020-03-23] MEDS: MAGNESIUM SULFATE 4 GM/100 ML BAG IVPB (09:42)
[2020-03-23] MEDS: oxyCODONE 5 mg/Acetaminophen 325 mg TAB 1 TAB PO ×2 (09:51→16:41)
--- NOTE | 2020-03-23 10:33 | W.NUTRFU ---
Date of service: 03/23/20 Time of Service: 10:33 Nutritional Follow up NOTE: Martina admitted 9 days ago with alcohol induced pancreatitis, now resolved but complicated by ileus. Hx of ulcerative colitis, BMI indicates overweight status. Has had minimal intake on and off during hospital admission. IV hydration provided. Diet to be advanced today to clear liquids. Will continue to follow. Time Spent in Nutritional Counseling and Treatment: 5
[2020-03-23] MEDS: Enoxaparin 80 MG/0.8 ML SYR SC ×2 (10:47→21:52)
--- NOTE | 2020-03-23 13:53 | PT.INTREAT ---
Date of service: 03/23/20 Time of Service: 13:30 PT Notes Visit Reasons: VOMITING Inpatient Physical Therapy Treatment Note [facility] Date: 03/23/2020 PRECAUTIONS: Fall SUBJECTIVE: Martina is pleasant and agreeable to participating in PT. She reports a burning in B feet. She makes independent decision that using FWW with ambulation would improve safety and steadiness at times when she has this burning sensation in her feet. OBJECTIVE: PAIN: No c/o pain BED MOBILITY/TRANSFERS Sit-stand: I Stand-sit: I Bed-Chair: I Chair-bed: I GAIT: Assistive Device: FWW Weight bearing: Full Assist: I Distance: 500' Deviation: Gait unremarkable THEREX: Patient was issued and instructed in a LE strengthening HEP. ASSESSMENT: Patient tolerated session well, without complaint. She was able to demonstrate independence with gait training with use of FWW today. PLAN: Discontinue PT services. Patient to follow HEP for LE strengthening and complete daily ambulation with nursing staff/independently with FWW (without IV pole attachment). TREATMENT CODE/TIME: 20 minutes; [id number]
--- NOTE | 2020-03-23 16:39 | W.PM.PROGNOT ---
Date of Service Date of service: 03/23/20 Time of Service: 16:39 Assessment and Plan Assessment and plan (1) Ileus: Status: Resolved Assessment and plan: Likely ok to advance diet, but as pain in LLQ persists, obtain CT abdomen/pelvis. C.Diff negative. (2) Alcohol withdrawal delirium: Status: Resolved Assessment and plan: No longer on CIWA. Continue PO vitamins. (3) Pancreatitis: Status: Resolved Assessment and plan: No longer having epigastric pain. However, this is likely the cause of the ileus. Qualifiers: Chronicity: acute Pancreatitis type: alcohol induced Acute pancreatitis complication: no infection or necrosis Qualified Code(s): K85.20 - Alcohol induced acute pancreatitis without necrosis or infection (4) Abdominal pain, vomiting, and diarrhea: Status: Resolved Assessment and plan: Likely multifactorial: pancreatitis, constipation / obstipation, gastritis, and now ileus. Continue bowel regimen, PPI/carafate. C.diff negative. (5) Hypokalemia: Status: Acute Assessment and plan: Replete and recheck in am. Monitor magnesium. (6) Hypomagnesemia: Status: Acute Assessment and plan: Replete, Recheck in am (7) UTI (urinary tract infection): Status: Resolved Assessment and plan: Present on admission. Mixed cx, with klebsiella growing. Completed abx. (8) History of pulmonary embolus (PE): Status: Chronic Assessment and plan: Continue anticoagulation (lovenox) Echo without significant pulmonary hypertension, EF 50%, normal diastolic dysfunction, no valvular lesions. (9) Peripheral neuropathy: Status: Acute Assessment and plan: Painful, improved with initiation of neurontin. Increase neurontin as, though symptoms are better, they still persist. H/o B12 deficiency as well as due to EtOH. Continue B12 supplementation. (10) Diarrhea: Status: Resolved Assessment and plan: C.diff negative. (11) DVT prophylaxis: Status: Acute Assessment and plan: full dose lovenox (12) Discharge planning issues: Status: Acute Assessment and plan: Full code Continues to require hospitalization. Subjective Subjective Interval history since last seen: C/o persistent LLQ pain. Denies dizziness, chest pain, shortness of breath, nausea. Last diarrhea last night - no BM's today. C.diff negative. Exam Narrative Exam Narrative: General: Middle-aged female, A&Ox3, no tremors, very calm, cooperative HEENT: EOMI, MMM Heart: RRR, no m/r/g Lungs: diminished at B bases Abdomen: remains tender in LLQ Extremities:no edema BLE's. Objective Last Vital Signs Temp 35.5 C L 03/23/20 07:25 Pulse 88 03/23/20 07:25 Resp 17 03/23/20 07:25 BP 130/79 03/23/20 07:25 Pulse Ox 99 03/23/20 07:25 Laboratory Results - last 24 hr 03/22/20 03/23/20 03/23/20 17:57 06:33 06:33 Plt Count 272 D-Dimer Sodium Potassium Chloride Carbon Dioxide Anion Gap BUN Creatinine Estimated GFR/1.73 m2 Glucose Calcium Magnesium 1.5 L C-Reactive Protein 0.50 H Lipase 199 Stl C.difficile Tox PCR Negative 03/23/20 03/23/20 06:33 06:33 Plt Count D-Dimer 444 Sodium 140 Potassium 3.2 L Chloride 108 H Carbon Dioxide 21.8 Anion Gap 10.2 BUN 1 L Creatinine 0.8 Estimated GFR/1.73 m2 >= 60.00 Glucose 116 H Calcium 8.7 Magnesium C-Reactive Protein Lipase Stl C.difficile Tox PCR Objective Narrative Objective Narrative: XR abdomen: On the upright view there is no evidence of free air. Stomach is not distended. No obvious bowel obstruction evident on today's images. No abnormal calcifications in soft tissues.
--- NOTE | 2020-03-23 16:44 | PDOC.CMPRO ---
Care Management Progress Note S/O: Martina started on clear liquids advanced to fat restricted. 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 She continues to be closely monitored, up independently in room-PT reports she will be discharged from their service. CM will continue to follow. A: Martina is a 64 year old female admitted to [facility] 03/14/20 for Vomiting P: Anticipate Martina will be discharged home with no new services when medically cleared by provider. She will follow up with her PCP, community providers including tin recovery worker, and discharge plan of care as directed. Martina will be driven home by [facility] to be coordinated by CM when ready.
[2020-03-23] MEDS: Omnipaque 350 MG/ML 100 ML BTL IJ (18:56)
--- NOTE | 2020-03-23 19:21 | DI.VRAD_ITS ---
PROCEDURE INFORMATION: Exam: CT Abdomen And Pelvis With Contrast Exam date and time: 03/23/2020 4:40 PM Age: 64 years old Clinical indication: Abdominal pain; Other: Llq TECHNIQUE: Imaging protocol: Computed tomography of the abdomen and pelvis with contrast. Contrast material: PMNIPAQUE 350; Contrast volume: 100 ml; Contrast route: IV; COMPARISON: CT ABDOMEN PELVIS W 09/04/2018 11:[address] angiogram of the chest, abdomen and pelvis dated 03/14/2020. FINDINGS: Lungs: The previously described pulmonary opacities within the lung bases have decreased in size from the prior study. The largest is seen within the right lower lobe measuring 1.1 x 2.3 cm, previously 1.5 x 2.3 cm. No new pulmonary opacity within the imaged lung bases. Pleural spaces: No pleural effusion. Heart: The heart is upper limits of normal in size. No pericardial effusion. Mediastinal space: Mild circumferential wall thickening within the lower esophagus. Liver: The liver is mildly enlarged and moderately fatty infiltrated. The portal hepatic veins opacify normally with contrast. Gallbladder and bile ducts: The gallbladder is normal appearance. Pancreas: The pancreas is normal appearance. Spleen: The spleen is normal appearance. Adrenal glands: The bilateral adrenal glands are normal appearance. Kidneys and ureters: The bilateral kidneys are normal appearance. Stomach and bowel: Mild wall thickening within the gastric folds and gastric antrum. The small bowel is normal appearance. A few areas of mild wall thickening are seen within the colon. No bowel obstruction or perforation. Appendix: The appendix is normal appearance. Intraperitoneal space: Unremarkable. No free air. No significant fluid collection. Vasculature: Mild atherosclerotic calcifications are seen within the abdominal aorta without aneurysm. Lymph nodes: Unremarkable. No enlarged lymph nodes. Urinary bladder: Mild circumferential wall thickening within the urinary bladder. Reproductive: A coarsened thickened calcification is seen within the left ovary measuring 3 mm in width and 11 mm in length. This is unchanged when compared to prior studies dating back to 09/04/2018. The uterus and right ovary are normal appearance. Bones/joints: A chronic T12 compression fracture is seen, unchanged from studies dating back to 09/04/2018. A L3 compression fracture is seen resulting in 25% vertebral body height loss. This is unchanged when compared to 03/14/2020 but is new from 09/04/2018. Soft tissues: Multiple areas of subcutaneous stranding and air are seen throughout the ventral abdominal and pelvic wall. This is most consistent with injection sites. IMPRESSION: 1. Mild wall thickening within the urinary bladder, which may represent cystitis. 2. A few areas of mild wall thickening are seen scattered throughout the colon, which may represent mild colitis. No bowel obstruction. 3. Findings suggestive of mild gastroesophagitis. 4. Chronic compression fracture of the T12 vertebral body. A compression fracture is also seen within the L3 vertebral body, which is stable when compared to 03/14/2020, but is new when compared to 09/04/2018. 5. Mildly enlarged, fatty infiltrated liver. 6. Decreased pulmonary opacities within the lung bases, most consistent with a resolving infectious or inflammatory process. This may represent sequela of the prior pulmonary embolism. 7. Stable coarse calcification within the left ovary, which could represent an ovarian dermoid. Dictated and Authenticated by: Minoo Rasmussen MD. Ordering:LISS Alcocer MD
[2020-03-23] MEDS: Gabapentin 100 MG CAP 200 MG PO (21:51)
[2020-03-23] MEDS: LORazepam 2 MG/ML VIAL IVP (21:51)
[2020-03-23 23:43] VITALS: BP 116/67; PULSE 82; RESP 16; TEMP 36.7; O2SAT 97
[2020-03-24] MEDS: oxyCODONE 5 mg/Acetaminophen 325 mg TAB 1 TAB PO ×2 (00:28→08:05)
[2020-03-24] MEDS: DEXTROSE 5%-0.9% SALINE 1,000 ML 125 ML IV ×3 (02:35→20:46)
[2020-03-24] MEDS: Levothyroxine 100 MCG TAB PO (05:47)
[2020-03-24 07:21] LABS: Anion Gap 6.4 mmol/L (3-11); BUN 1 mg/dL (7-18); CO2 24.6 mmol/L (21.0-32.0); CREATININE 0.8 mg/dL (0.55-1.02); Calcium 8.2 mg/dL (8.5-10.1); Chloride 110 mmol/L (98-107); Glucose 100 mg/dL (74-106); Potassium 3.3 mmol/L (3.5-5.1); Sodium 141 mmol/L (136-145)
[2020-03-24 07:24] LABS: C-Reactive Protein 0.21 mg/dL (0.0-0.3); Lipase 203 U/L (73-393); Magnesium 1.9 mg/dL (1.8-2.4)
[2020-03-24 07:55] VITALS: BP 119/77; PULSE 86; RESP 18; TEMP 37.1; O2SAT 98
[2020-03-24] MEDS: Pantoprazole 40 MG VIAL IVP (08:04)
[2020-03-24] MEDS: Folic Acid 1 MG TAB PO (08:04)
[2020-03-24] MEDS: Nicotine 21 MG/24 HR PATCH TD (08:04)
[2020-03-24] MEDS: Escitalopram 20 MG TAB PO (08:05)
[2020-03-24] MEDS: Sucralfate 1 GM TAB PO ×4 (08:05→20:51)
[2020-03-24] MEDS: ARIPiprazole 5 MG TAB PO (08:05)
[2020-03-24] MEDS: Cyanocobalamin 500 MCG TAB 1000 MCG PO (08:05)
[2020-03-24] MEDS: Gabapentin 100 MG CAP 200 MG PO ×3 (08:05→20:40)
[2020-03-24] MEDS: Docusate Sodium 100 MG CAP PO ×2 (08:05→20:39)
[2020-03-24] MEDS: Thiamine 100 MG TAB PO (08:05)
[2020-03-24] MEDS: Multivitamin w/Minerals TAB 1 TAB PO (08:05)
[2020-03-24] MEDS: Enoxaparin 80 MG/0.8 ML SYR SC ×2 (08:19→20:51)
[2020-03-24] MEDS: Potassium Chloride 20 MEQ TABCR 40 MEQ PO (10:49)
--- NOTE | 2020-03-24 14:07 | W.PM.PROGNOT ---
Date of Service Date of service: 03/24/20 Time of Service: 13:08 Assessment and Plan Assessment and plan (1) Ileus: Status: Resolved Assessment and plan: Appears to have resolved. CT abdomen pelvis did not indicate ongoing obstruction. Advance diet. (2) Pancreatitis: Status: Resolved Assessment and plan: No longer having epigastric pain, secondary ileus also resolved. CRP and lipase normalized, but are not see a benefit of continuing daily testing. Advancing diet as above. Qualifiers: Chronicity: acute Pancreatitis type: alcohol induced Acute pancreatitis complication: no infection or necrosis Qualified Code(s): K85.20 - Alcohol induced acute pancreatitis without necrosis or infection (3) Abdominal pain, vomiting, and diarrhea: Status: Resolved Assessment and plan: Likely multifactorial: pancreatitis, constipation / obstipation, gastritis, and ileus. Patient also has a history of ulcerative colitis has not been active for many years. Some possible colitis seen on CT, but her stools are at baseline. Will monitor her symptoms back on her regular diet. Could consider treating colitis or getting colonoscopy if left lower quadrant pain worsens, I think this can likely be done as outpatient. Continue bowel regimen, PPI/carafate. C.diff negative. Stop as needed opiate medication. (4) Hypokalemia: Status: Acute Assessment and plan: Replete and recheck in am. Magnesium normal (5) UTI (urinary tract infection): Status: Resolved Assessment and plan: Present on admission. Mixed cx, with klebsiella growing. Completed abx. (6) History of pulmonary embolus (PE): Status: Chronic Assessment and plan: Continue anticoagulation (lovenox) Echo without significant pulmonary hypertension, EF 50%, normal diastolic dysfunction, no valvular lesions. (7) Peripheral neuropathy: Status: Acute Assessment and plan: Painful, improved with initiation of neurontin. Increase neurontin as, though symptoms are better, they still persist. H/o B12 deficiency as well as due to EtOH. Continue B12 supplementation. (8) DVT prophylaxis: Status: Acute Assessment and plan: full dose lovenox (9) Discharge planning issues: Status: Acute Assessment and plan: Full code Continues to require hospitalization, but may be able to go home tomorrow if tolerating advance diet without worsening of pain. Subjective Subjective Patient reports: denies no new complaints and shortness of breath Interval history since last seen: 24 hr: CT abdomen pelvis showed mild wall thickening of the urinary bladder and a few areas of mild wall thickening scattered throughout the colon and mild gastroesophagitis. See report for full details. Patient still getting some crampy pain and left lower quadrant. She has requested Percocet twice to treat this pain since last night, which does help. No epigastric pain or nausea or vomiting. She is still taking a clear liquid diet, but feels like she could eat. She would like to make sure she can eat solids before going home. She reports her stooling is at baseline, 1-2 small soft stools per day. She denies symptoms consistent with her previous ulcerative colitis, which cause much more frequent stools. She has not had blood in her stool. She denies dysuria, though she is urinating a lot. Exam Narrative Exam Narrative: General: Middle-aged female, A&Ox3, no tremors, very calm, cooperative, and up in bed and drinking clear fluids. HEENT: EOMI, MMM Heart: RRR, no m/r/g Lungs: Somewhat diminished at B bases, but otherwise clear to auscultation bilaterally. No wheezes or rales. Abdomen: Active bowel sounds, soft, nontender in epigastrium but remains very mildly tender in LLQ Extremities:no edema BLE's. Objective Last Vital Signs Temp 37.1 C 03/24/20 07:55 Pulse 86 03/24/20 07:55 Resp 18 03/24/20 07:55 BP 119/77 03/24/20 07:55 Pulse Ox 98 03/24/20 07:55 Laboratory Results - last 24 hr 03/24/20 03/24/20 06:40 06:40 Sodium 141 Potassium 3.3 L Chloride 110 H Carbon Dioxide 24.6 Anion Gap 6.4 BUN 1 L Creatinine 0.8 Estimated GFR/1.73 m2 >= 60.00 Glucose 100 Calcium 8.2 L Magnesium 1.9 C-Reactive Protein 0.21 Lipase 203
[2020-03-24 16:15] VITALS: BP 147/90; PULSE 86; RESP 17; TEMP 36.6; O2SAT 99
--- NOTE | 2020-03-24 18:10 | CMPROGNOTE_ITS ---
- If Service Date Differs Date of service: 03/24/20 Time of Service: 18:10 Care Management Progress Note S/O: Martina was sitting up in bed when CM met with her. She reported that she was feeling better today, and hopes that she is on the mend. She reported that she was encouraged to get up and walk around, which she plans to do later today when someone is free to assist. CM will continue to follow. A: Martina is a 64 year old female admitted to [facility] 03/14/20 for Vomiting P: Anticipate Mratina will be discharged home with no new services when medically cleared by provider. She will follow up with her PCP, community providers including manager of disaster recovery, and discharge plan of care as directed. Martina will be driven home by [facility] to be coordinated by CM when ready.
[2020-03-24] MEDS: Pantoprazole 40 MG TABCR PO (20:39)
[2020-03-24] MEDS: Potassium Chloride 20 MEQ TABCR PO (20:39)
[2020-03-24] MEDS: Normal Saline Flush 10 ML SYR IVP (20:40)
[2020-03-24] MEDS: LORazepam 1 MG TAB PO (20:52)
[2020-03-24 20:54] VITALS: BP 131/84; PULSE 89; RESP 18; TEMP 36.9; O2SAT 97
[2020-03-25] MEDS: Acetaminophen 325 MG TAB 650 MG PO (02:48)
[2020-03-25 03:30] VITALS: BP 145/83; PULSE 87; RESP 18; TEMP 37; O2SAT 97
[2020-03-25] MEDS: DEXTROSE 5%-0.9% SALINE 1,000 ML 125 ML IV (05:07)
[2020-03-25] MEDS: Levothyroxine 100 MCG TAB PO (05:16)
[2020-03-25 06:58] LABS: Anion Gap 8.3 mmol/L (3-11); BUN 2 mg/dL (7-18); CO2 24.7 mmol/L (21.0-32.0); CREATININE 0.8 mg/dL (0.55-1.02); Calcium 8.4 mg/dL (8.5-10.1); Chloride 111 mmol/L (98-107); Glucose 109 mg/dL (74-106); Potassium 3.8 mmol/L (3.5-5.1); Sodium 144 mmol/L (136-145)
[2020-03-25 07:55] VITALS: BP 150/90; PULSE 81; RESP 18; TEMP 36.8; O2SAT 96
[2020-03-25] MEDS: Docusate Sodium 100 MG CAP PO (08:32)
[2020-03-25] MEDS: Escitalopram 20 MG TAB PO (08:32)
[2020-03-25] MEDS: Cyanocobalamin 500 MCG TAB 1000 MCG PO (08:32)
[2020-03-25] MEDS: Thiamine 100 MG TAB PO (08:32)
[2020-03-25] MEDS: Pantoprazole 40 MG TABCR PO (08:32)
[2020-03-25] MEDS: ARIPiprazole 5 MG TAB PO (08:32)
[2020-03-25] MEDS: Folic Acid 1 MG TAB PO (08:32)
[2020-03-25] MEDS: Multivitamin w/Minerals TAB 1 TAB PO (08:32)
[2020-03-25] MEDS: Sucralfate 1 GM TAB PO ×2 (08:32→12:05)
[2020-03-25] MEDS: Nicotine 21 MG/24 HR PATCH TD (08:32)
[2020-03-25] MEDS: Potassium Chloride 20 MEQ TABCR PO (08:33)
[2020-03-25] MEDS: Gabapentin 100 MG CAP 200 MG PO (08:39)
--- NOTE | 2020-03-25 12:01 | W.PM.DS.N ---
Date of service: 03/25/20 Time of Service: 12:02 DS: Diagnosis Discharge Diagnosis (1) Pancreatitis: Status: Resolved (2) Abdominal pain, vomiting, and diarrhea: Status: Resolved (3) Hypokalemia: Status: Acute (4) Ileus: Status: Resolved (5) UTI (urinary tract infection): Status: Resolved (6) History of pulmonary embolus (PE): Status: Chronic (7) Peripheral neuropathy: Status: Acute Discharge Plan Disposition Patient Disposition: HOME Condition: Stable Discharge Details Reason For Visit: Pancreatitis Admit Date/Time: 03/14/20 20:38 Admit Provider: Marshall Rose Attending Provider: Marshall Rose Primary Care Provider: Genaro Bonilla Hospital Course Hospital Course: Patient admitted on the evening of March 14 with acute vomiting. Lipase was mildly elevated and she was treated for alcoholic pancreatitis. CT and ultrasound the abdomen were benign. She was also treated with higher doses of proton pump inhibitor for possible gastritis contributing. Diet was progressed slowly, and she ended up developing a mild ileus, which did resolve on its own. The last 3 days of her hospitalization she no longer had epigastric or diffuse pain, did have some left lower quadrant pain. CT of the abdomen pelvis showed some signs of mild patchy colitis. Patient did have some diarrhea, but C. difficile was negative and this resolved. There was a concern of some redness in the stool, but occult blood was negative and later stools were normal color. 3 of ulcerative colitis was noted, but her symptoms were not at the level they were when she had active ulcerative colitis. Plan was to follow-up for colonoscopy as outpatient, which had previously been scheduled. She was educated in low-fat diet following pancreatitis. Course was complicated by alcohol withdrawal which became evident 2 to 3 days into her hospitalization. She was treated with [facility] protocol. She did have some hallucinations at around day 5 consistent with delirium tremens. She did not have seizures. Her mental status was normal upon discharge. She was offered support for her alcohol use disorder. She was connected with a oil recovery operator. Medical therapy was reviewed and naltrexone was prescribed upon discharge, as she has tolerated this before. She was also started on gabapentin for neuropathy during her hospitalization, and this may help cravings related to alcohol use disorder. She was discharged on B12, folate, and thiamine as well. She was given Ativan at least twice for anxiety and sleep, and asked for this upon discharge. I felt outpatient prescription of benzodiazepines or other sedatives was not norman given her alcohol use disorder. She did have low magnesium and potassium which was replaced during hospitalization. Repeat BMP and magnesium levels ordered for outpatient labs prior to follow-up in about a week. Patient had a positive urine culture with Klebsiella and completed treatment with ceftriaxone. And pain on her anticoagulation with Lovenox for pulmonary emboli. She did have an echocardiogram without significant pulmonary hypertension with an ejection fraction of 50%. Patient was given for nicotine patches to aid in smoking cessation. Home Meds and New Rx's Prescriptions: New thiamine mononitrate (vit B1) [Vitamin B-1 (mononitrate)] 100 mg Tablet 100 mg PO DAILY Qty: 30 RF: 0 gabapentin 300 mg capsule 300 mg PO TID Qty: 90 RF: 1 naltrexone 50 mg tablet 50 mg PO DAILY Qty: 30 RF: 2 nicotine [Nicoderm CQ] 21 mg/24 hr patch 24 hour 1 patch transdermal DAILY Qty: 28 RF: 2 Therems-M 27-0.4 mg Tablet 1 tab PO DAILY Qty: 0 RF: 0 cyanocobalamin (vitamin B-12) [Vitamin B-12] 1,000 mcg tablet 1,000 mcg PO DAILY Qty: 90 RF: 3 Continued folic acid 1 mg tablet 1 mg PO DAILY RF: 0 escitalopram oxalate [Lexapro] 20 mg Tablet 20 mg PO DAILY RF: 0 aripiprazole [Abilify] 5 mg Tablet 5 mg PO DAILY RF: 0 omeprazole 20 mg capsule,delayed release(DR/EC) 20 mg PO DAILY RF: 0 enoxaparin 80 mg/0.8 mL Syringe 80 mg subcut Q12H Qty: 60 RF: 0 levothyroxine 100 mcg tablet 100 mcg PO DAILY RF: 0 Discharge Instructions Instructions: Pancreatitis (DC) Additional Instructions: You should have a folllow up appointment with Genaro Bonilla in the next week or so. Labs were ordered for the day prior to that appointment if possible. You should also follow up with the surgeons regarding the colonoscopy as you had planned Follow the low fat diet for pancreatitis. Of course it is very important to avoid alcohol Gabapentin was sent to help neuropathy pain, it may also help with alcohol cravings. Naltrexone was also prescribed for this purpose. Stand Alone Forms: Nursing Discharge Form Referrals: Genaro Bonilla FINISHED GOODS STOCK CLERK [Primary Care Provider] - (Please call the office on Thursday morning to schedule an appointment to be seen within 2 weeks) Sherlyn Balbuena DO [OSTEOPATHIC DOCTOR] - (64 yo F, h/o Alcohol use disorder with recent admission with pancreatitis. Also history of ulcerative colitis with mild LLQ pain and mild colitis on CT. Anticoagulated chornically for pulmonary emboli. Was previously scheduled for colonoscopy, please reschedule to consider this procedure.) Activity:: Activity as Tolerated Equipment/Supplies:: No Equipment Needed Diet:: Fat Restricted/Pancreatitis Diet Discharge Orders Discharge Orders: Discharge Order (Routine); Ordered 03/25/20 Ordered By: Evangelista Benjamin Other Ambulatory Orders: Basic Metabolic Panel (Routine) Location: None Selected Ordered By: Evangelista Benjamin Magnesium (Routine) Timeframe: 1 Week Location: None Selected Ordered By: Evangelista Benjamin DS: Summary Summary Time spent discussing smoking cessation with patient: 3 to 10 minutes Time Spent with Patient providing and/or coordinating discharge services: Greater than 30 minutes Status at Discharge Functional status at discharge: independent ambulation Overall status at discharge: patient is back to baseline Mental Status: mental status grossly normal Speech and Movement: speech and movement normal Mood: congruent mood Affect: normal affect Exam Narrative Exam Narrative: General: Middle-aged female, A&Ox3, no tremors, very calm, cooperative, and up in chair and drinking clear fluids. HEENT: EOMI, MMM Heart: RRR, no m/r/g Lungs: Clearr to auscultation bilaterally. No wheezes or rales. Abdomen: Active bowel sounds, soft, nontender in epigastrium but remains very mildly tender in LLQ Extremities:no edema BLE's. Psych Mental Status: mental status grossly normal Speech and Movement: speech and movement normal Mood: congruent mood Affect: normal affect DS: Data Vitals/I&O Vitals and I&O: Vital Signs Temperature 36.8 C 03/25/20 07:55 Temperature Source Tympanic 03/25/20 07:55 Pulse 81 03/25/20 07:55 Pulse Rhythm Regular 03/25/20 04:44 Respiratory Rate 18 03/25/20 07:55 Respiratory Effort Non-Labored 03/25/20 04:44 Respiratory Depth Normal 03/25/20 04:44 Respiratory Pattern Normal 03/25/20 04:44 Blood Pressure 150/90 H 03/25/20 07:55 Blood Pressure Position Sitting 03/14/20 16:53 Pulse Oximetry 96 03/25/20 07:55 Oxygen Delivery Method Room Air 03/25/20 07:55 Oxygen Flow Rate 0 03/25/20 07:55 Pain Level 5 03/25/20 07:55 Comment 03/17/20 15:23 Intake & Output 03/24/20 03/25/20 03/25/20 23:59 11:59 23:59 Intake Total 2720 / 4720 1570 / 1570 Output Total 500 / 500 500 / 500 Balance 2220 / 4220 1070 / 1070 Weight 78 kg Intake: IV 1010 / 3010 1010 / 1010 Oral 1710 / 1710 560 / 560 Output: Urine 500 / 500 500 / 500 Other: Urine Color Yellow Pale Yellow Urine Appearance Clear Clear Urine Odor Normal Normal Stool Occult Blood Negative Stool Size Moderate Moderate Stool Characteristics Soft Soft Voiding Methods Toilet Toilet Data Completed and Pending Labs on day of discharge: Labs from last 24 hours 03/25/20 06:30 Sodium 144 Potassium 3.8 Chloride 111 H Carbon Dioxide 24.7 Anion Gap 8.3 BUN 2 L Creatinine 0.8 Estimated GFR/1.73 m2 >= 60.00 Glucose 109 H Calcium 8.4 L PFSH Medical History (Updated 03/23/20 @ 16:43 by Carlyn Guerrero MD) Alcohol abuse Anxiety Depression Hypothyroidism Pulmonary emboli Ulcerative colitis Surgical History Hx of section Hx of colonoscopy Family History Father Heart disease Paternal Grandmother Cancer Maternal Grandmother Cancer Social History Smoking/Tobacco Use Status: Current every day Tobacco Type: cigarettes Years smoked: 46 Tobacco: How many years used: 46 Smoking risk assessment performed?: Yes Alcohol Intake: current Alcohol Intake frequency: 0-2 drinks per day Alcohol type: wine Drug use: Daily Substance use type: marijuana Current gender identity: female Do you feel safe at home: Yes Do you feel safe in your relationship?: Yes
--- NOTE | 2020-03-25 13:19 | PDOC.CMDIS ---
- If Service Date Differs Date of service: 03/25/20 Time of Service: 13:19 LACE Index Scoring Tool - Questions: Length of Stay (in days): 7 - 13 Acuity (Admit via E.D.?): Yes E.D. Visits: 9 - Answers: Total Score: 12 Risk of Readmission: High Risk Care Management Discharge Reason for Hospitalization: Vomiting. Discharge Plan: Martina will return home today with no additional services. She will receive support from the resource recovery specialist that she was connected to during this admission. LYNN coordinated a private vehicle by [facility] to drive her home, and to stop at [facility] prior to dropping her off at home. She will follow up with her PCP and discharge plan of care. She is happy to be going home. Patient/Family Education Needs: Review discharge instructions regarding activity levels and medications, discussion of self care needs including ask me three. Services Needed at Discharge: Transportation (ANATOLIY pv)
--- NOTE | 2020-03-26 09:00 | INDS_ITS ---
Date of service: 03/26/20 Time of Service: 09:01 PT Notes Visit Reasons: Pancreatitis PT Initial Evaluation PATIENT NAME:ZONIA HICKMAN #: [id number] ADMITTING PROVIDER: ALIA MONK DPT #: [id number] PRIMARY CARE PROVIDER: Genaro Bonilla NPDATE OF ADMIT : 03/14/20 : 1955 Physical Therapy Inpatient Discharge Summary Date: 03/26/2020 Date of service: 03/20/2020 through 03/23/2020 This is a clinical summary of care provided on the duration of dates listed above. No charge was made in the completion of this documentation. Precautions: Fall. Standard. Activity as tolerated. Patient Profile/Admitting Diagnosis: Martina is a 64-year-old female who presented to the ED on 03/14/2020 with chief complaints of lower abdominal pain, nausea, vomiting, and diarrhea 10 days prior to hospital admission. Patient is diagnosed with EtOH withdrawal delirium, urinary tract infection, pancreatitis, hypokalemia, and hypomagnesemia. PMHX: Medical History Alcohol abuse Anxiety Depression Hypothyroidism Pulmonary emboli Ulcerative colitis Surgical History Hx of section Hx of colonoscopy Social History/Home Situation: Lives alone in an apartment building with 4 steps to enter and rails on both sides. Independent with community ambulation without an assistive device. Independent with meals, laundry, housekeeping, and grocery shopping prior to admission. Equipment Owned/DME: None Subjective: NT. 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 Objective: General Observation: NT. 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 Mental Status: NT. 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 Pain: NT. 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 ROM: Right Upper Extremity: Shoulder Flexion WFL. Shoulder abduction WFL. Elbow flexion WFL. Wrist flexion WFL. Opening and closing of hand WFL. Left Upper Extremity: Shoulder Flexion WFL. Shoulder abduction WFL. Elbow flexion WFL. Wrist flexion WFL. Opening and closing of hand WFL. Right Lower Extremity: Hip flexion WFL. Hip abduction WFL. Knee flexion WFL. Ankle dorsiflexion WFL. Ankle plantarflexion WFL. Left Lower Extremity: Hip flexion WFL. Hip abduction WFL. Knee flexion WFL. Ankle dorsiflexion WFL. Ankle plantarflexion WFL. Strength: Right Upper Extremity: Shoulder flexors 4/5. Shoulder abductors 4/5. Elbow flexors 5/5. Elbow extensors 5/5. Brush Cutter strong. Left Upper Extremity: Shoulder flexors 4/5. Shoulder abductors 4/5. Elbow flexors 5/5. Elbow extensors 5/5. Brush Cutter strong. Right Lower Extremity: Hip flexors 4-/5. Hip abductors 4-/5. Knee flexors 4-/5. Knee extensors 4-/5. Ankle dorsiflexors 4-/5. Ankle plantarflexors 4-/5. Left Lower Extremity: Hip flexors 4-/5. Hip abductors 4-/5. Knee flexors 4-/5. Knee extensors 4-/5. Ankle dorsiflexors 4-/5. Ankle plantarflexors 4-/5. Sensation: Burning and tingling in fingers of both hands and toes as well as soles of both feet. Bed Mobility/Transfers: Rolling independent Supine to sit independent Sit to supine independent Sit to stand independent Stand to sit independent Bed to chair independent Chair to bed independent Gait: Modified independent with level surface ambulation using a front wheeled walker with full weightbearing for up to 500 feet without any gait deviations but with continued complaint of both feet burning. Nursing and MD currently managing symptoms of peripheral neuropathy. Balance: Static Sitting: Normal Dynamic Sitting: Normal Static Standing: Good Dynamic Standing: Fair Assessment: Martina has met all goals listed below and is discharged from [facility] therapy services as of 03/23/2020 with written list of exercises that she can accomplish on her own. She is modified independent with all ambulation activities using front wheeled walker. Goals: Goals X1 week 1. Supine-Sit independent MET 2. Sit-Supine independent MET 3. Sit-Stand independent MET 4. Stand-Sit independent MET 5. Bed-Chair independent MET 6. Chair-Bed independent MET 7. Independent gait on level surface without the use of an assistive device for at least 300 feet without report of pain nor dyspnea MET 8. Independent stair negotiation while holding onto bilateral rails for at least 5 steps without report of pain nor dyspnea MET 9. Independent with home exercise program MET 10. Good static and dynamic standing balance/tolerance MET DISCHARGE RECOMMENDATIONS: Patient will benefit from home health PT services in order to progress mobility level using least restrictive assistive ambulatory device, assess home safety, identify additional equipment needs, and establish a functional maintenance program that will increase ability of patient to remain at home. May continue to be in need of a front wheeled walker for community ambulation upon discharge to home. TREATMENT CODE/TIME: HI Thank you for the opportunity to participate in the care of this patient. Toshia Monk PT, DPT, CLT [facility] [place], [place]
== END 2020-03-25 12:43 | disposition home or self-care (01) | DRG 439 ==
LOC: ER 20:47 → MS 21:56
PROVIDERS: Family Medicine; Internal Medicine; Registered Nurse Emergency; Surgery; Admitting Provider General Practice; Emergency Provider Physician Assistant; PCP Nurse Practitioner Family; Visit Provider General Practice
DX: K85.20 Alcohol induced acute pancreatitis without necrosis or infection (principal); K56.7 Ileus, unspecified; N39.0 Urinary tract infection, site not specified; K51.90 Ulcerative colitis, unspecified, without complications; F10.188 Alcohol abuse with other alcohol-induced disorder; F10.131 Alcohol abuse with withdrawal delirium; E87.6 Hypokalemia; K29.70 Gastritis, unspecified, without bleeding; E83.42 Hypomagnesemia; B96.1 Klebsiella pneumoniae [K. pneumoniae] as the cause of diseases classified elsewhere; Z79.01 Long term (current) use of anticoagulants; F41.9 Anxiety disorder, unspecified; F32.9 Major depressive disorder, single episode, unspecified; E03.9 Hypothyroidism, unspecified; K59.00 Constipation, unspecified; G62.1 Alcoholic polyneuropathy; Z86.711 Personal history of pulmonary embolism
CPT/HCPCS: 36410; 36415; 71275; 74177; 80048; 80053; 80076; 83690; 87077; 87493; 87637; 90686; 93005; 96361; 96365; 96366; 96367; 96375; 97110; 97162; 97530; 99222; 99232; 99233; 99239; 99253; 99285; 74019; 76705; 81003; 81015; 82607; 82746; 83605; 83735; 84132; 84443; 84484; 85025; 85049; 85379; 86140; 87086; 87186; 93010; 93306; J0131; J0696; J1650; J2060; J2270; J2405; J3475; J3480; J3490; J7042

== ENCOUNTER 2020-04-05 14:04 | Outpatient (REF) | payer MEDICAID, SELFPAY ==
--- NOTE | 2020-04-05 13:30 | PAPFT_PTH ---
PATIENT: aMrtina Kuhn LOC: [facility]#:[id number] AGE/SX: 64/F ROOM: RE04/05/[address]: Genaro Bonilla : 1955 BED: DIS: 04/05/2020 SPEC #: [id number] RECD: 04/05/20 17:54 STATUS: RAMYA REZachery #: [id number] EVER: 04/05/20 13:[address]: Genaro Bonilla DEPT: [facility] Cytology RECD BY: Santa Hamilton Tissues: 1 - CX/ENDOCX FOR PAP SMEARS Procedures: PAP THIN PREP/UVM Screening HPV DNA PROBE Comments: [id number]
[2020-04-05 18:06] LABS: HGB 13.6 g/dL (11.2-15.7); MCH 36.1 pg (27.0-33.0); MCHC 33.2 % (32.0-36.0); MCV 108.8 fL (80-95); MPV 9.9 fL (8.0-11.0); Platelet Count 376 10^3/uL (130-400); RBC 3.77 10^6/uL (3.93-5.22); RDW 12.8 % (11.7-14.6); WBC 6.69 10^3/uL (4.4-10.8)
[2020-04-05 18:55] LABS: ALT 56 U/L (14-59); AST 59 U/L (15-37); Albumin 3.1 g/dL (3.4-5.0); Alkaline Phosphatase 108 U/L (46-116); Anion Gap 11.6 mmol/L (3-11); BUN 10 mg/dL (7-18); Bilirubin, Total 0.4 mg/dL (0.2-1.0); CO2 23.4 mmol/L (21.0-32.0); CREATININE 0.8 mg/dL (0.55-1.02); Calcium 9.4 mg/dL (8.5-10.1); Chloride 107 mmol/L (98-107); Glucose 98 mg/dL (74-106); Potassium 3.9 mmol/L (3.5-5.1); Sodium 142 mmol/L (136-145); Total Protein 6.4 g/dL (6.4-8.2)
[2020-04-05 18:59] LABS: Hemoglobin A1C 5.4 % (<5.7)
[2020-04-09 11:48] LABS: Hepatitis C Ab w Rflx HCV PCR Negative (Negative)
== END 2020-04-05 14:05 | disposition home or self-care (01) ==
LOC: NCHCN 14:04
PROVIDERS: PCP Nurse Practitioner Family; Visit Provider Nurse Practitioner Family
DX: Z12.4 Encounter for screening for malignant neoplasm of cervix (principal); Z11.51 Encounter for screening for human papillomavirus (HPV); Z00.00 Encounter for general adult medical examination without abnormal findings; G62.9 Polyneuropathy, unspecified; D75.1 Secondary polycythemia; Z51.81 Encounter for therapeutic drug level monitoring; E03.9 Hypothyroidism, unspecified; R87.610 Atypical squamous cells of undetermined significance on cytologic smear of cervix (ASC-US); R87.810 Cervical high risk human papillomavirus (HPV) DNA test positive; Z11.59 Encounter for screening for other viral diseases
CPT/HCPCS: 80053; 85027; 86803; 87389; 88142; 83036; 87624

== ENCOUNTER 2020-05-18 09:24 | Outpatient (REF) | payer MEDICAID, SELFPAY ==
--- NOTE | 2020-05-18 09:17 | ENDO_PTH ---
PATIENT: Martina Kuhn LOC: N U#:[id number] AGE/SX: 65/F ROOM: RE05/18/[address]: Delmy Walls MD : 1955 BED: DIS: 05/18/2020 SPEC #: [id number] RECD: 05/18/20 12:35 STATUS: RAMYA REQ #: [id number] EVER: 05/18/20 09:[address]: Delmy Walls DEPT: Surgical Specimen RECD BY: Santa Hamilton ENTERED: 05/18/20 12:36 SP TYPE: Endo OTHR DR: Genaro Bonilla Tissues: 1 - ENDOCERVICAL BX/CURRETTE Procedures: GROSS AND MICRO LEVEL 4 Comments: [id number]
--- NOTE | 2020-06-15 10:00 | PDOC.ANES ---
Date of service: 06/15/20 Time of Service: 10:00 Anesthesia Note Report Anesthesia Note: Reviewed chart per Dr. Casillas request. Most updated consult in the [facility] [place] discusses the patients recurrent PEs, one in 2018 and one July 2019 (while on rivaroxaban). 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 Pulmonology is aware of the plan for her to receive her colonoscopy here at [facility] with Dr. Balbuena and are comfortable with the level of risk versus reward. I consulted the patients particulars with Sanaz Levin and Lucas Gallardo and we feel that the patient is cleared to proceed.
== END 2020-05-18 09:25 | disposition home or self-care (01) ==
LOC: LBN 09:24
PROVIDERS: PCP Nurse Practitioner Family; Visit Provider Obstetrics & Gynecology
DX: R87.618 Other abnormal cytological findings on specimens from cervix uteri (principal); R87.610 Atypical squamous cells of undetermined significance on cytologic smear of cervix (ASC-US); R87.810 Cervical high risk human papillomavirus (HPV) DNA test positive
CPT/HCPCS: 88305

== ENCOUNTER 2020-06-22 10:31 | Outpatient (REF) | payer MEDICAID, SELFPAY ==
--- NOTE | 2020-06-22 09:38 | ENDO_PTH ---
PATIENT: Martina Kuhn LOC: [facility] U#:[id number] AGE/SX: 65/F ROOM: RE06/22/[address]: Delmy Walls MD : 1955 BED: DIS: 06/22/2020 SPEC #: [id number] RECD: 06/22/20 12:58 STATUS: RAMYA REQ #: [id number] EVER: 06/22/20 09:[address]: Delmy Walls DEPT: Surgical Specimen RECD BY: Santa Hamilton ENTERED: 06/22/20 12:59 SP TYPE: Endo OTHR DR: Genaro Bonilla Tissues: 1 - ENDOCERVICAL BX/CURRETTE Procedures: GROSS AND MICRO LEVEL 4 Comments: [id number]
== END 2020-06-22 10:32 | disposition home or self-care (01) ==
LOC: NCHCN 10:31
PROVIDERS: PCP Nurse Practitioner Family; Visit Provider Obstetrics & Gynecology
DX: N88.8 Other specified noninflammatory disorders of cervix uteri (principal); R87.610 Atypical squamous cells of undetermined significance on cytologic smear of cervix (ASC-US); R87.810 Cervical high risk human papillomavirus (HPV) DNA test positive
CPT/HCPCS: 88305

== ENCOUNTER 2020-07-02 12:36 | Outpatient (CLI) | payer MEDICAID, SELFPAY ==
--- NOTE | 2020-07-02 | DI.RAD_ITS ---
Exam(s) XR LUMBAR SPINE COMPLETE EXAM: XR LUMBAR SPINE COMPLETE CLINICAL HISTORY: BACK PAIN M54.9, H/O CHRONIC STEROIDS, NEW ACUTE MID LUMBAR BACK PAIN. TECHNIQUE: 2D digital imaging was performed. COMPARISON: CR XR LUMBAR SPINE AP, LAT from 01/04/[address] ABDOMEN PELVIS W from 03/23/2020 FINDINGS: There is concave superior endplate superior endplate compression fracture of L3 which is unchanged fr om CT scan 03/23/2020. However, there is also slight loss of height now evident in the superior endp late of L2 which was not evident previously. L1 appears unremarkable. T12 compression fracture was evident previously. No obvious osseous lesions. Mild disc space narrowing at L2-3 level noted. No scoliosis. Facets unremarkable. Sacroiliac joints unremarkable IMPRESSION: Compared to the abdominal CT scan of 03/23/2020 the previously present compression fractures of super ior endplates of T12 and L3 are unchanged but there is now slight loss of height of superior endplate of L2 which is a new finding. DATA REPOSITORY: RADIATION DOSE DELIVERED:
== END 2020-07-02 12:56 ==
PROVIDERS: PCP Nurse Practitioner Family; Visit Provider Family Medicine
DX: M54.5 Low back pain (principal); Z79.52 Long term (current) use of systemic steroids; M51.36 Other intervertebral disc degeneration, lumbar region; M48.55XD Collapsed vertebra, not elsewhere classified, thoracolumbar region, subsequent encounter for fracture with routine healing; M48.56XA Collapsed vertebra, not elsewhere classified, lumbar region, initial encounter for fracture
CPT/HCPCS: 72110

== ENCOUNTER 2020-07-10 16:32 | Inpatient (IN) | payer MEDICAID, SELFPAY ==
[2020-07-10] VITALS (7 sets, daily range): BP systolic 85–117; BP diastolic 47–79; PULSE 62–80; RESP 16–20; TEMP 36.2–36.7; O2SAT 96–99
--- NOTE | 2020-07-10 16:30 | DI.CT_ITS ---
Exam(s) CT THORACIC LUMBAR SPINE WO EXAM: CT THORACIC LUMBAR SPINE WO CLINICAL HISTORY: severe pain, hx of fx. TECHNIQUE: Imaging Protocol: Axial computed tomography images with coronal and sagittal reformatted images were created and reviewed. CONTRAST MATERIAL: Intravenous: None COMPARISON: CR XR LUMBAR SPINE COMPLETE from 07/02/2020 FINDINGS: CT LUMBAR SPINE: There is compression fracture of superior endplate of L2 with approximately 25 perce nt height loss and approximately 4-5 millimeter retropulsion posterior cortex with some impingement t he thecal sac with mild-moderate central canal stenosis. There is also a compression fracture superior endplate of L3 approximately 15 percent height loss and approximately 2-3 millimeter retropulsion of posterior cortex with mild central canal stenosis at th is level. There also compression fractures T9 and T12 as discussed below. Also with element of canal stenosis these levels. INTERVERTEBRAL DISCS: No large disk herniations are identified. FACET JOINTS: There is no significant facet arthropathy in the lumbosacral spinal column. VISUALIZED SACRUM: No evidence of fracture. No findings in the sacral canal. Sacroiliac joints unre markable. CT THORACIC SPINE: At the T12 level there is a superior endplate compression fracture with approximat ilan 40-50 percent height loss and approximately 4-5 millimeters retropulsion of the posterior cortex causing moderate central spinal canal stenosis. There is also an inferior endplate compression fracture at T9 level with approximately 25 percent hei ght loss and mild retropulsion of posterior cortex by approximately 3-4 millimeters resulting in mild central spinal canal stenosis. INTERVERTEBRAL DISCS: There are no disc herniations evident in the thoracic spinal column. No obviou s foraminal stenosis. There is generalized osteopenia. However, there are no discrete ominous focal hepatic lesions identi fied. IMPRESSION: 1. There are acute appearing compression fractures of L2 and L3 vertebral bodies as described above. Mild-moderate central canal stenosis noted at L2 level. 2. Compression fractures at T9-T12 with mild retropulsion-mild canal stenosis at these levels. 3. There is generalized osteopenia. No discrete ominous focal osseous lesions evident. 4. No evidence of sacral fracture. RADIATION DOSE DELIVERED: 1,057.1mGy.cm Total DLP DATA REPOSITORY: All CT scans at this facility are submitted to the National Radiology Data Registry (NRDR) Dose Index Registry (DIR) with the [employer] ([employer]). RADIATION OPTIMIZATION: All CT scans at this facility use at least one of these dose optimization te chniques: automated exposure control; mA and/or kV adjustment per patient size (includes targeted exa ms where dose is matched to clinical indication); or iterative reconstruction.
--- NOTE | 2020-07-10 16:38 | ED.GENADUL_ITS ---
Discharge Plan Disposition Patient Disposition: [facility] INPATIENT Condition: Improving Discharge Details Clinical Impression: Lumbar vertebral fracture Admit Date/Time: 07/10/20 20:55 Admit Provider: Marshall Iyer Attending Provider: Marshall Iyer Primary Care Provider: Genaro Bonilla ED Provider: Jigna Parker Discharge Data Discharge Date/Time-TO BE ENTERED AT DEPARTURE: 07/10/20 21:30 Medical Decision Making Patient is a pleasant 65 year old female presenting today with c/c of severe low back pain x 2 weeks. Reports that the pain came on incidously, awoke with the discomfort. Denies trauma. States that she was seen 1 week ago by PCP. XR ordered. Diagnosed with a pinched nerve and started on Vicodin. Has been using this but it has not helped with pain. Now out of medication, pain worsening and migrating. REports pain is now moving up the back. States that now she is having difficulties with ADLS secondary to pain. REports that when she was taking Vicodin, she was constipated but that she now has had BM. No abdominal pain. No change in urinary habits. No fevers/chills. PMH signifciant for chronic PE, UC, peripheral neuropathy, ETOH abuse, pancreatitis, PTSD, polycythemia, depression, anxiety. Patient is on enoxaparin and naltrexone. She has not taken her naltrexone in one week since starting the Vicodin. Last dose of Vicodin was 2 days ago. On exam, patient appears uncomfortable and in mild distress. She was able to transfer from the EMS stretcher to our stretcher with minimal assistance. No weakness noted. She has pain with palpation over the right side of thoracic and lumbar spine. Pain is fairly diffuse. No step off or midline deformtiy.Strength intact in BLE, 2+ distal pulses. Limited ROM of back secondary to pain. Reviewed notes. Patient was initially started on Flexeril x 5 days with no improvement. Was then seen by physician who started Vicodin and ordered XR. Advised that if pain persisted would get CT. Will give IV acetaminophen, IV fentanyl. XR from one week ago: FINDINGS: There is concave superior endplate superior endplate compression fracture of L3 which is unchanged from CT scan 03/23/2020.? However, there is also slight loss of height now evident in the superior endplate of L2 which was not evident previously.? L1 appears unremarkable.? T12 compression fracture was evident previously.? No obvious osseous lesions.? Mild disc space narrowing at L2-3 level noted.? No scoliosis.? Facets unremarkable.? Sacroiliac joints unremarkable IMPRESSION: Compared to the abdominal CT scan of 03/23/2020 the previously present compression fractures of superior endplates of T12 and L3 are unchanged but there is now slight loss of height of superior endplate of L2 which is a new finding Reevaluated the patient. She reports that he is unchanged. She is here much more comfortable. Will give another 50mcg Fentanyl as she is still unable to tolerate CT scan at this time. FINDINGS: Vertebrae: T9 inferior endplate compression deformity with roughly 30% loss of inferior height. Mild retropulsion of posterior T9 vertebral body impression upon the thoracic spinal thecal sac by 4 mm with mild canal stenosis. In addition, there is a superior T12 endplate compression fracture with roughly 50% loss of height and posterior retropulsion superior vertebral body by 5 mm with moderate canal stenosis. No spondylolisthesis or spondylolysis. Discs/Spinal canal/Neural foramina: No significant disc protrusion. No additional sites of severe spinal canal stenosis. No significant neural foraminal narrowing. Other bones/joints: Severe generalized osteopenia with mult ilevel insufficiency fractures. No lytic or blastic osseous lesion. Soft tissues: Unremarkable. Lungs: Posterolateral right lower lobe pleural-based internally calcified large pulmonary nodules likely reflect prior granulomatous disease. Inflammatory atelectasis in the superior segment and posterior juxtapleural inferior left lower lobe. IMPRESSION:1. T9 and T12 vertebral body endplate deformities with mild posterior retropulsion of vertebral bodies onto the thecal sac leading to [id number] canal stenosis at these levels, respectively. Severe generalized osteopenia leading to these insufficiency fractures. 2. Probable old calcified granulomas in the right lower lobe. Atelectasis in the posterior left lower lobe. FINDINGS: Vertebrae: Superior L2 endplate compression fracture with roughly 20% loss of height and anterior and posterior retropulsion of vertebral body. Posteriorly there is 5 mm of retropulsion at L2 with impingement upon the thecal sac and moderate lumbar spinal canal stenosis. Milder superior L3 endplate compression fracture of roughly 10-15% and posterior retropulsion vertebral body at the superior endplate by 2 mm. Mild canal stenosis at this level. No additio nal insufficiency fractures identified. No spondylolisthesis or spondylolysis. Discs/Spinal canal/Neural foramina: No significant disc protrusion. No additional sites of spinal canal stenosis. No significant neural foraminal narrowing. Other bones/joints: Severe generalized osteopenia. Appendix: Normal appendix. No appendicitis. Vasculature: Minimal atherosclerotic vascular disease in the aorta bi-iliac arteries. Soft tissues: Unremarkable. IMPRESSION: Acute insufficiency fractures involving the L2 and L3 vertebral bodies with L2 moderate spinal canal stenosis. Postvoid 100mL. No saddle paresthesias, no lower extremity weakness or focal neurological deficit. Consulted with Dr. Kevin. Reviewed the findings of his CT. He advised that the patient may find benefit with a brace to help support the acute fracture of the lumbar spine. Patient still in significant pain. Will give IV dilaudid. Discussed results with the patient. She seems upset with this. Discussed disposition. Pain has been difficult to control. She is unable to care for herself at home secondary to pain. Is able to get up to commode here without weakness but this causes significant pain. Consulted with Dr. Rahman who agrees to admission for pain cotnrol PT and bracing. HPI General Mode of arrival: EMS . Date/Time Provider Initiated Documentation: 07/10/20 16:37 . Limitations to Documentation: no limitations . Information obtained by: patient, RN notes reviewed and old records reviewed . History of Present Illness 65 year old F presents to the emergency department with the chief complaint of severe back pain, described as severe, with intensity rated at 10. Quality is described as aching, and is localized to the back. Patient reports no radiation. Patient started experiencing this week(s) (2) and it has been constant. Immobilization improves symptom(s), Movement worsens symptoms . Patient notes no other symptoms.. Patient did receive the following treatments prior to arrival, other (vicodin) Related Data Home Medications Medication Instructions Recorded Confirmed aripiprazole [Abilify] 5 mg PO DAILY 06/23/18 07/10/20 escitalopram oxalate [Lexapro] 20 mg PO DAILY 06/23/18 07/10/20 omeprazole 20 mg PO DAILY 08/12/19 07/10/20 enoxaparin 80 mg SUBCUT Q12H #60 ml 08/13/19 07/10/20 folic acid 1 mg PO DAILY 12/24/19 07/10/20 levothyroxine 100 mcg PO DAILY 03/14/20 07/10/20 cyanocobalamin (vitamin B-12) 1,000 mcg PO DAILY #90 tab 03/25/20 07/10/20 [Vitamin B-12] naltrexone 50 mg PO DAILY #30 tab 03/25/20 07/10/20 nicotine [Nicoderm CQ] 1 patch TRANSDERMAL DAILY #28 ea 03/25/20 07/10/20 thiamine mononitrate (vit B1) 100 mg PO DAILY #30 tab 03/25/20 07/10/20 [Vitamin B-1 (mononitrate)] pregabalin 150 mg PO BID 07/11/20 07/11/20 tizanidine 4 mg PO Q8H PRN 07/11/20 07/11/[address] DAILY PRN PRN #10 ea 07/13/20 calcium carbonate-vitamin D3 2 tab PO BID #60 tab 07/13/20 [Calcium 600 + D(3)] cyclobenzaprine 5 mg PO TID PRN PRN #60 tab 07/13/20 docusate sodium [Colace] 100 mg PO BID #30 cap 07/13/20 fentanyl [Duragesic] 50 mcg TRANSDERMAL Q72H #20 ea 07/13/20 tramadol 50 mg PO Q6H PRN PRN #20 tab 07/13/20 Previous Rx's Medication Instructions Recorded enoxaparin 80 mg SUBCUT Q12H #60 ml 08/13/19 cyanocobalamin (vitamin B-12) 1,000 mcg PO DAILY #90 tab 03/25/20 [Vitamin B-12] naltrexone 50 mg PO DAILY #30 tab 03/25/20 nicotine [Nicoderm CQ] 1 patch TRANSDERMAL DAILY #28 ea 03/25/20 thiamine mononitrate (vit B1) 100 mg PO DAILY #30 tab 03/25/20 [Vitamin B-1 (mononitrate)] bisacodyl [address] DAILY PRN PRN #10 ea 07/13/20 calcium carbonate-vitamin D3 2 tab PO BID #60 tab 07/13/20 [Calcium 600 + D(3)] cyclobenzaprine 5 mg PO TID PRN PRN #60 tab 07/13/20 docusate sodium [Colace] 100 mg PO BID #30 cap 07/13/20 fentanyl [Duragesic] 50 mcg TRANSDERMAL Q72H #20 ea 07/13/20 tramadol 50 mg PO Q6H PRN PRN #20 tab 07/13/20 Allergies Allergy/AdvReac Type Severity Reaction Status Date / Time Sulfa (Sulfonamide AdvReac Intermediate headache/ Unverified 07/10/20 16:43 Antibiotics) itching General ABIODUN: 2 Review of Systems Constitutional Constitutional: Reports as per HPI, Denies chills, Denies fatigue, Denies fever(s), Denies frequent falls and Denies headache(s) Eyes Eyes: Denies change in vision ENT Ears, Nose, Mouth, and Throat: Denies headache(s) Cardiovascular Cardiovascular: Denies chest pain, Denies dyspnea and Denies dyspnea on exertion Respiratory Respiratory: Denies cough, Denies dyspnea and Denies dyspnea on exertion Gastrointestinal Gastrointestinal: Denies abdominal pain, Denies change in bowel habits and Denies fecal incontinence Genitourinary Genitourinary: Reports as per HPI, Denies urinary incontinence and Denies urinary hesitancy Musculoskeletal Musculoskeletal: Reports as per HPI, Reports back pain, Denies muscle weakness, Denies numbness, Denies radiating pain into limb, Reports stiffness and Denies tingling Integumentary/Breasts Skin/Breast: Reports as per HPI and Denies rash Neurologic Neurologic: Reports as per HPI, Denies frequent falls, Denies headache(s), Denies localized weakness, Denies numbness, Denies radicular pain, Denies sensory deficit, Denies tingling and Denies paresthesias Endocrine Endocrine: Denies fatigue PFSH Medical History Alcohol abuse Anxiety ASCUS with positive high risk HPV Depression Hypothyroidism Pulmonary emboli Ulcerative colitis Surgical History Hx of section Hx of colonoscopy Family History Father Heart disease Paternal Grandmother Cancer Maternal Grandmother Cancer Social History Smoking/Tobacco Use Status: Current every day Tobacco Type: cigarettes Years smoked: 46 Tobacco: How many years used: 46 Smoking risk assessment performed?: Yes Alcohol Intake: former Drug use: Daily Substance use type: marijuana Current gender identity: female Do you feel safe at home: Yes Do you feel safe in your relationship?: Yes Exam Const General: cooperative, healthy appearing, uncomfortable, no acute distress, well developed and well groomed Nutritional Appearance: average body habitus and well nourished Orientation: alert and awake Eyes General: appearance normal, both eyes and all related structures Neck Neck: normal visual inspection, full ROM, no lymphadenopathy and no meningeal signs Resp Effort & Inspection: normal respiratory effort and able to speak in complete sentences Auscultation: clear to auscultation bilaterally, no rales, no rhonchi and no wheezes Cardio Rate: regular rate Rhythm: regular rhythm Heart Sounds: S1 normal and S2 normal GI Inspection: normal to inspection Palpation: soft, no hepatosplenomegaly, no guarding, not rigid and nontender Percussion: normal to percussion Auscultation: normal bowel sounds Back/Spine/Pelvis Back: CVA tenderness (right side) Cervical Spine: normal cervical lordosis and cervical ROM normal Thoracic/Lumbar Spine: thoracic and lumbar spine normal to inspection, No thoraco-lumbar ROM normal, No straight leg raise negative bilaterally, No thoracic spinal tenderness and lumbar spinal tenderness (indicates fairly diffuse pain but no focal area of pain) Pelvis: no pain with anterior-posterior compression and no pain with lateral compression Sacroiliac joints: bilaterally nontender Back/spine/pelvis image: 1. area of tenderness. No erythema, warmth, spasm Skin General skin exam: no rashes or lesions noted Neuro General: patient alert and patient awake Cognition: normal cognition Speech: speech normal Gait: antalgic Motor: muscle tone normal throughout, strength 5/5 throughout, no movement abnormalities noted and no fasciculations Sensory Exam: no sensory deficits noted (no saddle paresthesias) DTR's: Rt Patellar: 2+, Lt Patellar: 2+, Rt Ankle: 2+ and Lt Ankle: 2+ Extrem General: normal to inspection, full ROM, capillary refill normal, no joint enlargement, no pedal edema, no calf tenderness and normal gait Psych Appearance: grossly normal and well kempt Mental Status: mental status grossly normal Speech and Movement: speech and movement normal
[2020-07-10] MEDS: diazePAM 5 MG TAB PO (16:55)
[2020-07-10] MEDS: Normal Saline Flush 10 ML SYR IVP ×2 (17:00→23:04)
[2020-07-10] MEDS: ACETAMINOPHEN 1,000 MG/100 ML BTL 400 MG IVPB (17:10)
[2020-07-10 17:13] LABS: Abs Immature Grans 0.05 10^3/uL (0.0-0.06); Absolute Basophil Count 0.03 10^3/uL (0.0-0.2); Absolute Eosinophil Count 0.08 10^3/uL (0.0-0.7); Absolute Lymphocyte Count 1.69 10^3/uL (1.2-3.4); Absolute Monocyte Count 0.47 10^3/uL (0.1-0.8); Absolute Neutrophil Count 7.92 10^3/uL (1.2-6.7); Basophils % 0.3; Eosinophils % 0.8; HCT 44.4 % (36.0-46.0); HGB 14.8 g/dL (11.2-15.7); Immature Grans % 0.5; Lymphocytes % 16.5; MCH 32.9 pg (27.0-33.0); MCHC 33.3 % (32.0-36.0); MCV 98.7 fL (80-95); MPV 9.4 fL (8.0-11.0); Monocytes % 4.6; Neutrophils % 77.3; Nucleated RBC 0 %; Platelet Count 300 10^3/uL (130-400); RDW 13.3 % (11.7-14.6); RDW-SD 47.9 fL; WBC 10.24 10^3/uL (4.4-10.8)
[2020-07-10] MEDS: Lidocaine 5% Patch 1 PATCH TP (17:15)
[2020-07-10 17:27] LABS: ALT 21 U/L (14-59); AST 15 U/L (15-37); Albumin 3.6 g/dL (3.4-5.0); Alkaline Phosphatase 108 U/L (46-116); Anion Gap 8.2 mmol/L (3-11); BUN 11 mg/dL (7-18); Bilirubin, Total 0.4 mg/dL (0.2-1.0); CO2 28.8 mmol/L (21.0-32.0); CREATININE 0.8 mg/dL (0.55-1.02); Calcium 9.4 mg/dL (8.5-10.1); Chloride 105 mmol/L (98-107); Glucose 100 mg/dL (74-106); Potassium 3.8 mmol/L (3.5-5.1); Sodium 142 mmol/L (136-145); Total Protein 7.4 g/dL (6.4-8.2)
[2020-07-10 17:35] LABS: Bilirubin Negative (Negative); Blood Negative (Negative); Clarity Clear (Clear); Glucose Negative (Negative); Ketones Negative (Negative); Leukocyte Esterase Negative (Negative); Nitrite Negative (Negative); Specific Gravity 1.015 (1.005-1.025); Urobilinogen 0.2 EU/dL (Up TO 0.2); pH 6.5 (5-8)
[2020-07-10] MEDS: fentaNYL 100 MCG/2 ML VIAL 50 MCG IVP ×2 (17:45→18:28)
[2020-07-10] MEDS: Normal Saline 500 ML IV (18:07)
[2020-07-10] MEDS: HYDROmorphone 2 MG/ML VIAL 1 MG IVP ×2 (19:11→23:05)
--- NOTE | 2020-07-10 19:53 | DI.VRAD_ITS ---
PROCEDURE INFORMATION: Exam: CT Thoracic Spine Without Contrast Exam date and time: 07/10/2020 4:48 PM Age: 65 years old Clinical indication: Other: Severe pain, HX of FX, no recent trauma TECHNIQUE: Imaging protocol: Computed tomography images of the thoracic spine without contrast. Radiation optimization: All CT scans at this facility use at least one of these dose optimization techniques: automated exposure control; mA and/or kV adjustment per patient size (includes targeted exams where dose is matched to clinical indication); or iterative reconstruction. COMPARISON: No relevant prior studies available. FINDINGS: Vertebrae: T9 inferior endplate compression deformity with roughly 30% loss of inferior height. Mild retropulsion of posterior T9 vertebral body impression upon the thoracic spinal thecal sac by 4 mm with mild canal stenosis. In addition, there is a superior T12 endplate compression fracture with roughly 50% loss of height and posterior retropulsion superior vertebral body by 5 mm with moderate canal stenosis. No spondylolisthesis or spondylolysis. Discs/Spinal canal/Neural foramina: No significant disc protrusion. No additional sites of severe spinal canal stenosis. No significant neural foraminal narrowing. Other bones/joints: Severe generalized osteopenia with multilevel insufficiency fractures. No lytic or blastic osseous lesion. Soft tissues: Unremarkable. Lungs: Posterolateral right lower lobe pleural-based internally calcified large pulmonary nodules likely reflect prior granulomatous disease. Inflammatory atelectasis in the superior segment and posterior juxtapleural inferior left lower lobe. IMPRESSION: 1. T9 and T12 vertebral body endplate deformities with mild posterior retropulsion of vertebral bodies onto the thecal sac leading to [id number] canal stenosis at these levels, respectively. Severe generalized osteopenia leading to these insufficiency fractures. 2. Probable old calcified granulomas in the right lower lobe. Atelectasis in the posterior left lower lobe. PROCEDURE INFORMATION: Exam: CT Lumbar Spine Without Contrast Exam date and time: 07/10/2020 4:48 PM Age: 65 years old Clinical indication: Other: Severe pain, HX of FX, no recent trauma TECHNIQUE: Imaging protocol: Computed tomography images of the lumbar spine without contrast. Radiation optimization: All CT scans at this facility use at least one of these dose optimization techniques: automated exposure control; mA and/or kV adjustment per patient size (includes targeted exams where dose is matched to clinical indication); or iterative reconstruction. COMPARISON: No relevant prior studies available. FINDINGS: Vertebrae: Superior L2 endplate compression fracture with roughly 20% loss of height and anterior and posterior retropulsion of vertebral body. Posteriorly there is 5 mm of retropulsion at L2 with impingement upon the thecal sac and moderate lumbar spinal canal stenosis. Milder superior L3 endplate compression fracture of roughly 10-15% and posterior retropulsion vertebral body at the superior endplate by 2 mm. Mild canal stenosis at this level. No additional insufficiency fractures identified. No spondylolisthesis or spondylolysis. Discs/Spinal canal/Neural foramina: No significant disc protrusion. No additional sites of spinal canal stenosis. No significant neural foraminal narrowing. Other bones/joints: Severe generalized osteopenia. Appendix: Normal appendix. No appendicitis. Vasculature: Minimal atherosclerotic vascular disease in the aorta bi-iliac arteries. Soft tissues: Unremarkable. IMPRESSION: Acute insufficiency fractures involving the L2 and L3 vertebral bodies with L2 moderate spinal canal stenosis. Dictated and Authenticated by: Molly Paniagua MD. Ordering:VERONIKA Benito MD
--- NOTE | 2020-07-10 21:02 | HPE_ITS ---
Date of service: 07/10/20 Time of Service: 21:02 Assessment and Plan Assessment and plan (1) Lumbar vertebral fracture: Start date: 07/10/20 Status: Acute Assessment and plan: This is a 65-year-old lady who had increasing low back pain presented to the ED for evaluation with CT scan of the T-spine and LS- spine showing acute compression fracture with some spinal stenosis but no emergent neurological symptoms. She will be arranged for a back brace for suppo rt and PT/OT should evaluate her for home activity. Pain control for now with IV Dilaudid converting to oral therapy as tolerated. She is alcoholic and needs to be careful with addictive drugs and does understand risk-benefit of this treatment plan. Attack should be minimized for long-term care. Treatment of her osteoporosis may be helpful with pain control. Qualifiers: Encounter type: initial encounter Fracture morphology: other fracture Fracture type: closed Lumbar vertebra fracture level: unspecified lumbar sylvia tebra Qualified Code(s): S32.008A - Other fracture of unspecified lumbar v ertebra, initial encounter for closed fracture (2) Thoracic vertebral fracture: Start date: 07/10/20 Status: Acute Assessment and plan: Treatment plan as per lumbar vertebral fractures. Qualifiers: Encounter type: initial encounter Fracture morphology: other fracture Fracture type: closed Thoracic vertebra fracture level: unspecified thoracic vertebra Qualified Code(s): S22.008A - Other fracture of unspecified thoracic vertebra, initial encounter for closed fracture (3) Osteoporosis: Status: Chronic Assessment and plan: Patient to be evaluated for treatment to stabilize osteoporosis. Being off alcohol will be helpful. Eventual increase in weightbearing activity would be helpful as well. Review for vitamin D deficiency and calcium supplementation. Qualifiers: Encounter type: initial encounter Osteoporosis type: other Presence of current pathological fracture: with current pathological fracture Qualified Code(s): M80.80XA - Other osteoporosis with current pathological fracture, unspecified site, initial encounter for fracture (4) Alcohol abuse: Status: Chronic Assessment and plan: Patient has been abstinent from alcohol since March 2020 and this needs to be maintained as an outpatient with ongoing evaluation and treatment with her PCP. (5) Chronic pulmonary embolism: Status: Chronic Assessment and plan: Continue Lovenox watching closely for bleeding se quelae. Patient does see hematology for this problem. Qualifiers: Acute cor pulmonale presence: without acute cor pulmonale Pulmonary embolism type: other Qualified Code(s): I27.82 - Chronic pulmonary embolism History of Present Illness History of Present Illness Chief Complaint: Severe back pain Narrative: This is a 65-year-old female patient who has had problems with chronic alcoholism exacerbated in this last year and recently quitting drinking alcohol in March of this year after a bout of pancreatitis requiring hospitalization. She was on naltrexone but this was discontinued last week when she was placed on Vicodin fo r back pain which had been bothering her since the end of May but worsened over the last 2 weeks. She had no injury to the back but with imaging originally early June there were compression fractures in the lumbar and thoracic spine with osteoporosis. The patient had worsening pain the day of admission and reported to the ED for evaluation with CT of the T-spine and LS spine showing the same compression fracture seen on plain film with additional compression fractures appearing acute. There were some retropulsion of the compression fractures causing mild spinal stenosis but patient was cheryle rologically intact with orthopedic consultation in the ED recommending a brace with no other interventions. She is having no signs or symptoms of spinal cord stenosis progressing or causing cauda equina. Neurosurgery was not consulted. The patient was more comfortable lying on her left side with the head slightly elevated and the pain was controlled with IV Dilaudid. Time I saw the patient she was comfortable. She denies any recent falls. 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 She has had increased stress with COVID-19 pandemic this last year. Is also was a time where her drinking alcohol became more problematic. She is not on any medications for osteoporosis. She was a tobacco smoker, is and an alcoholic all the risk factors for osteoporosis. She currently is on Lovenox for recurrent pulmonary emboli failed oral anticoagulation. She does not take calcium supplements, biphosphonate's or vitamin D supplements. Review of Systems Narrative: 13 point review of systems otherwise unrevealing or stable. [facility] Medical History Alcohol abuse Anxiety ASCUS with positive high risk HPV Depression Hypothyroidism Pulmonary emboli Ulcerative colitis Surgical History Hx of section Hx of colonoscopy Family History Father Heart disease Paternal Grandmother Cancer Maternal Grandmother Cancer Social History Smoking/Tobacco Use Status: Current every day Tobacco Type: cigarettes Years s moked: 46 Tobacco: How many years used: 46 Smoking risk assessment performed?: Yes Alcohol Intake: former Drug use: Daily Substance use type: marijuana Current gender identity: female Do you feel safe at home: Yes Do you feel safe in your relationship?: Yes Meds Allergies and Home Medications Allergies Allergy/AdvReac Type Severity Reaction Status Date / Time Sulfa (Sulfonamide AdvReac Intermediate headache/ Unverified 07/10/20 16:43 Antibiotics) itching Home Medications Medication Instructions Recorded Confirmed Type aripiprazole [Abilify] 5 mg PO DAILY 06/23/18 07/10/20 History escitalopram oxalate [Lexapro] 20 mg PO DAILY 06/23/18 07/10/20 History omeprazole 20 mg PO DAILY 08/12/19 07/10/20 History enoxaparin 80 mg SUBCUT Q12H #60 ml 08/13/19 07/10/20 Rx folic acid 1 mg PO DAILY 12/24/19 07/10/20 History levothyroxine 100 mcg PO DAILY 03/14/20 07/10/20 History cyanocobalamin (vitamin B-12) 1,000 mcg PO DAILY #90 tab 03/25/20 07/10/20 Rx [Vitamin B-12] naltrexone 50 mg PO DAILY #30 tab 03/25/20 07/10/20 Rx nicotine [Nicoderm CQ] 1 patch TRANSDERMAL DAILY #28 ea 03/25/20 07/10/20 Rx thiamine mononitrate (vit B1) 100 mg PO DAILY #30 tab 03/25/20 07/10/20 Rx [Vitamin B-1 (mononitrate)] pregabalin 150 mg PO BID 07/11/20 07/11/20 History tizanidine 4 mg PO Q8H PRN 07/11/20 07/11/20 History Exam Narrative Exam Narrative: General: Patient appears older than stated age, moderately obese and disheveled. She is alert and oriented x3. She is in no acute distress when lying still but uncomfortable with movement. She is lying on her left side with head slightly elevated. HEENT: Normocephalic, eyes with pupils equal and react light symmetrically, extraocular movement intact and sclera anicteric. Oropharynx with moist mucosa. Neck: Supple without JVD. Back: Slightly kyphotic with loss of lumbar lordosis and tender to palpation over lumbar and lower thoracic spine. Increased paraspinal muscle tone with tenderness. Decreased range of motion. No CVA tenderness. Lungs: Clear to auscultation and percussion. Breast: Exam deferred. Heart: Regular rate and rhythm with no murmurs gallops appreciated. Abdomen: Obese contour, soft nontender to palpation with no palpable hepatosplenomegaly. Bowel sounds positive of blood. Genitalia/rectal: Exam deferred. Extremities: Without pitting edema, cyanosis or clubbing. Peripheral pulses intact. Skin: Normal color, warm and dry. Neuro: Cranial 2-12 gross intact, no focalizing motor deficits. No abnormal. Psych: Flattened affect with slight depressed mood, no abnormal thought processes. Remote and recent memory intact. Results Imaging Imaging Studies: Exam: CT Thoracic Spine Without Contrast Exam date and time: 07/10/2020 4:48 PM Age: 65 years old Clinical indication: Other: Severe pain, HX of FX, no recent trauma COMPARISON: No relevant prior studies available. FINDINGS: Vertebrae: T9 inferior endplate compression deformity with roughly 30% loss of inferior height. Mild retropulsion of posterior T9 vertebral body impression upon the thoracic spinal thecal sac by 4 mm with mild canal stenosis. In addition, there is a superior T12 endplate compression fracture with roughly 50% loss of height and posterior retropulsion superior vertebral body by 5 mm with moderate canal stenosis.? No spondylolisthesis or spondylolysis. Discs/Spinal canal/Neural foramina: No significant disc protrusion. No additional sites of severe spinal canal stenosis. No significant neural foraminal narrowing. Other bones/joints: Severe generalized osteopenia with multilevel insufficiency fractures. No lytic or blastic osseous lesion. Soft tissues: Unremarkable. Lungs: Posterolateral right lower lobe pleural-based internally calcified large pulmonary nodules likely reflect prior granulomatous disease. Inflammatory atelectasis in the superior segment and posterior juxtapleural inferior left lower lobe. IMPRESSION: 1. T9 and T12 vertebral body endplate deformities with mild posterior retropulsion of vertebral bodies onto the thecal sac leading to [id number] canal stenosis at these levels, respectively.? Severe generalized osteopenia leading to these insufficiency fractures. 2. Probable old calcified granulomas in the right lower lobe. Atelectasis in the posterior left lower lobe. Exam: CT Lumbar Spine Without Contrast Exam date and time: 07/10/2020 4:48 PM Age: 65 years old Clinical indication: Other: Severe pain, HX of FX, no recent trauma COMPARISON: No relevant prior studies available. FINDINGS: Vertebrae: Superior L2 endplate compression fracture with roughly 20% loss of height and anterior and posterior retropulsion of vertebral body. Posteriorly there is 5 mm of retropulsion at L2 with impingement upon the thecal sac and moderate lumbar spinal canal stenosis. Milder superior L3 endplate compression fracture of roughly 10-15% and posterior retropulsion vertebral body at the superior endplate by 2 mm. Mild canal stenosis at this level. No additional insufficiency fractures identified.? No spondylolisthesis or spondylolysis. Discs/Spinal canal/Neural foramina:? No significant disc protrusion.? No additional sites of spinal canal stenosis.? No significant neural foraminal narrowing. Other bones/joints: Severe generalized osteopenia. Appendix: Normal appendix. No appendicitis. Vasculature: Minimal atherosclerotic vascular disease in the aorta bi-iliac arteries. Soft tissues: Unremarkable. IMPRESSION: Acute insufficiency fractures involving the L2 and L3 vertebral bodies with L2 moderate spinal canal stenosis. EXAM:? XR LUMBAR SPINE COMPLETE CLINICAL HISTORY: ? BACK PAIN M54.9, H/O CHRONIC STEROIDS, NEW ACUTE MID LUMBAR BACK PAIN. ? TECHNIQUE:? 2D digital imaging was performed. COMPARISON:? CR XR LUMBAR SPINE AP, LAT from 01/04/[address] ABDOMEN ? PELVIS W from 03/23/2020 FINDINGS: There is concave superior endplate superior endplate compression fracture of L3 which is unchanged from CT scan 03/23/2020.? However, there is also slight loss of height now evident in the superior endplate of L2 which was not evident previously.? L1 appears unremarkable.? T12 compression fracture was evident previously.? No obvious osseous lesions.? Mild disc space narrowing at L2-3 level noted.? No scoliosis.? Facets unremarkable.? Sacroiliac joints unremarkable IMPRESSION: Compared to the abdominal CT scan of 03/23/2020 the previously present compression fractures of superior endplates of T12 and L3 are unchanged but there is now slight loss of height of superior endplate of L2 which is a new finding. Labs Result diagrams: 07/11/20 06:35 07/11/20 06:35 Labs: Laboratory Results - last 24 hr 07/10/20 07/10/20 07/10/20 17:05 17:05 17:25 WBC 10.24 RBC 4.50 Hgb 14.8 Hct 44.4 MCV 98.7 H MCH 32.9 MCHC 33.3 RDW 13.3 Plt Count 300 MPV 9.4 Immature Gran % 0.5 Neutrophils % 77.3 Lymphocytes % 16.5 Monocytes % 4.6 Eosinophils % 0.8 Basophils % 0.3 Nucleated RBC % 0 Absolute Neutrophils 7.92 H Absolute Lymphocytes 1.69 Absolute Monocytes 0.47 Absolute Eosinophils 0.08 Absolute Basophils 0.03 Sodium 142 Potassium 3.8 Chloride 105 Carbon Dioxide 28.8 Anion Gap 8.2 BUN 11 Creatinine 0.8 Estimated GFR/1.73 m2 >= 60.00 Glucose 100 Calcium 9.4 Total Bilirubin 0.4 AST 15 ALT 21 Alkaline Phosphatase 108 Total Protein 7.4 Albumin 3.6 Urine Color Yellow Urine Clarity Clear Urine pH 6.5 Ur Specific [place] 1.015 Urine Protein Negative Urine Ketones Negative Urine Blood Negative Urine Nitrite Negative Urine Bilirubin Negative Urine Urobilinogen 0.2 Ur Leukocyte Esterase Negative Urine Glucose Negative Last Vital Signs Temp 36.7 C 07/10/20 16:38 Pulse 79 07/10/20 18:43 Resp 16 07/10/20 18:43 BP 110/78 07/10/20 19:23 Pulse Ox 98 07/10/20 18:43 COVID-19 Screening Have you, or household traveled for leisure in last 14 days?: No Had IN PERSON contact w/suspected or confirmed C-19 person: No
[2020-07-10 21:06] LABS: Source Nasal/Nares
[2020-07-10 21:44] LABS: COVID-19 PCR Negative (Negative)
[2020-07-10] MEDS: Enoxaparin 80 MG/0.8 ML SYR SC (22:22)
[2020-07-10 22:45] LABS: TSH 6.16 uIU/mL (0.36-3.74)
[2020-07-11] MEDS: HYDROmorphone 2 MG/ML VIAL 1 MG IVP ×5 (04:10→22:17)
[2020-07-11 04:34] VITALS: BP 99/63; PULSE 61; RESP 17; TEMP 36.3; O2SAT 95
[2020-07-11] MEDS: Levothyroxine 100 MCG TAB PO (05:45)
[2020-07-11 06:52] LABS: Abs Immature Grans 0.03 10^3/uL (0.0-0.06); Absolute Basophil Count 0.02 10^3/uL (0.0-0.2); Absolute Eosinophil Count 0.14 10^3/uL (0.0-0.7); Absolute Lymphocyte Count 1.58 10^3/uL (1.2-3.4); Absolute Monocyte Count 0.54 10^3/uL (0.1-0.8); Absolute Neutrophil Count 5.17 10^3/uL (1.2-6.7); Basophils % 0.3; Eosinophils % 1.9; HCT 42.1 % (36.0-46.0); HGB 13.6 g/dL (11.2-15.7); Immature Grans % 0.4; Lymphocytes % 21.1; MCH 32.3 pg (27.0-33.0); MCHC 32.3 % (32.0-36.0); MPV 9.3 fL (8.0-11.0); Monocytes % 7.2; Neutrophils % 69.1; Nucleated RBC 0 %; Platelet Count 257 10^3/uL (130-400); RBC 4.21 10^6/uL (3.93-5.22); RDW 13.4 % (11.7-14.6); RDW-SD 49.1 fL; WBC 7.48 10^3/uL (4.4-10.8)
[2020-07-11 07:07] LABS: ALT 17 U/L (14-59); AST 12 U/L (15-37); Alkaline Phosphatase 89 U/L (46-116); Anion Gap 5.4 mmol/L (3-11); BUN 8 mg/dL (7-18); Bilirubin, Total 0.5 mg/dL (0.2-1.0); CO2 29.6 mmol/L (21.0-32.0); CREATININE 0.7 mg/dL (0.55-1.02); Calcium 9.2 mg/dL (8.5-10.1); Chloride 109 mmol/L (98-107); Glucose 85 mg/dL (74-106); Potassium 4.8 mmol/L (3.5-5.1); Sodium 144 mmol/L (136-145); Total Protein 6.3 g/dL (6.4-8.2)
[2020-07-11 07:40] VITALS: BP 101/65; PULSE 69; RESP 18; TEMP 36.5; O2SAT 100
[2020-07-11] MEDS: ARIPiprazole 5 MG TAB PO (08:04)
[2020-07-11] MEDS: Omeprazole 20 MG CAPCR PO (08:04)
[2020-07-11] MEDS: Cyanocobalamin 500 MCG TAB 1000 MCG PO (08:04)
[2020-07-11] MEDS: Folic Acid 1 MG TAB PO (08:04)
[2020-07-11] MEDS: Escitalopram 20 MG TAB PO (08:04)
[2020-07-11] MEDS: Normal Saline Flush 10 ML SYR IVP ×6 (08:04→22:18)
[2020-07-11] MEDS: Acetaminophen 325 MG TAB 650 MG PO ×4 (08:04→19:57)
[2020-07-11] MEDS: Thiamine 100 MG TAB PO (08:04)
[2020-07-11] MEDS: Nicotine 21 MG/24 HR PATCH TD (09:08)
--- NOTE | 2020-07-11 09:21 | OTIE_ITS ---
Occupational Therapy Notes Inpatient Occupational Therapy Evaluation Date: 07/11/20 Referring Doctor:Hiral OT Orders: Non-URgent Precautions: Fall, standard, Full PATIENT PROFILE/ADMITTING DIAGNOSIS: Pt is a 65 year old female admitted to [facility] surg with the following dx including thoracic vertebrae fx, lumbar vertebrae fx, osteoporosis, ASCUS + risk for HPV, pulmonary infarct, pulmonary embolism. Past Medical History: Medical History? Alcohol abuse Anxiety ASCUS with positive high risk HPV Depression Hypothyroidism Pulmonary emboli Ulcerative colitis Surgical History? Hx of section Hx of colonoscopy Social History/Home Situation: Pt lives alone, she has two grown sons and utilizes [employer] for transportation. She notes that otherwise her baseline level of function is (I) and that she does not need (A) at any time. Equipment owned/DME: FWW, cane SUBJECTIVE: Pt was lying in bed when OT arrived. She is agreeable to OT session and notes that she is in pain. OBJECTIVE: General Observation: Pleasant, closes eyes throughout session and notes fatigue, IV in (L) UE not connected Mental Status: A&Ox3 Pain: c/o pain in back and into upper legs ROM: RUE AROM WFL L UE AROM WFL STRENGTH: RUE 5/5 throughout LUE 5/5 throughout SENSATION: c/o numbness and tingling in (B) UE and LE occasionally FUNCTIONAL MOBILITY/ADLS: BATHING NT DRESSING with min vc Dressing UE min (A) [facility] and doing [facility] gown Dressing LE max (A), OT feels that pt would benefit from sock aide for increased (I) GROOMING Sitting in bed pt was able to (I) brush her hair TOILETING NT EATING NT BALANCE: Static sitting Good Dynamic Sitting Good SPECIAL TESTS: Daily Activity Limitations Standardized Measure [facility] AM -PAC ?6 clicks? Daily Activity Inpatient Short Form: Raw score: 14 Standardized score: 33.39 CMS score: 59.67% INFORMED CONSENT/EDUCATION: Pt instructed in purpose of OT Consult and plan of care. ASSESSMENT: Patient is a 65-year-old female referred to occupational therapy services with diagnosis of thoracic vertebrae fx, lumbar vertebrae fx, osteoporosis, ASCUS + risk for HPV, pulmonary infarct, pulmonary embolism. Patient presents with clinical signs and symptoms consistent with dx, as demonstrated by the following impairment level findings/functional limitations: Numbness in (B) UE which is chronic, pain in back and (B) LE, decreased functional activity tolerance, decreased LE ADLs, decreased functional mobility required for ADLs. AMPAC score 14 Patient is assessed as a Moderate 15915 complexity based on the following: History: see above Examination: see functional limitations as noted above Presentation: evolving Decision Making: AMPAC score 14 GOALS Goals x1 week 1. Transfers min (A) 2. Dressing seated in chair mod (I) LE and (I) UE 3. Bathing standing at sink (I) 4. Toileting on toilet (I) 5. Eating (I) PLAN OF CARE/TREATMENT PLAN: 1x/day, 5 days/ week x 1week Initiate Occupational Therapy Services for bathing, dressing, grooming, toileting, eating, transfer training. DISCHARGE RECOMMENDATIONS OT recommends that pt go SNF whem medically cleared per MD vs. Home with HH services TREATMENT TIME/MINUTES/CODES [id number], [id number], 30 minutes Li Cadet OTR/L [facility]
[2020-07-11] MEDS: Normal Saline 500 ML 30 ML IV (09:50)
--- NOTE | 2020-07-11 09:58 | W.PM.PROGNOT ---
Date of Service Date of service: 07/11/20 Time of Service: 16:00 Assessment and Plan Assessment and plan (1) Lumbar vertebral fracture: Status: Acute Assessment and plan: added fentanyl patch, titrate as needed scheduled tylenol PT/OT back brace bowel management Qualifiers: Encounter type: initial encounter Fracture morphology: other fracture Fracture type: closed Lumbar vertebra fracture level: unspecified lumbar vertebra Qualified Code(s): S32.008A - Other fracture of unspecified lumbar vertebra, initial encounter for closed fracture (2) Thoracic vertebral fracture: Status: Acute Assessment and plan: Treatment plan as per lumbar vertebral fractures. Qualifiers: Encounter type: initial encounter Fracture morphology: other fracture Fracture type: closed Thoracic vertebra fracture level: unspecified thoracic vertebra Qualified Code(s): S22.008A - Other fracture of unspecified thoracic vertebra, initial encounter for closed fracture (3) Osteoporosis: Status: Chronic Assessment and plan: Patient to be evaluated for treatment to stabilize osteoporosis. Being off alcohol will be helpful. Eventual increase in weightbearing activity would be helpful as well. added vitamin D deficiency and calcium supplementation and reclast infusion Qualifiers: Encounter type: initial encounter Osteoporosis type: other Presence of current pathological fracture: with current pathological fracture Qualified Code(s): M80.80XA - Other osteoporosis with current pathological fracture, unspecified site, initial encounter for fracture (4) Alcohol abuse: Status: Chronic Assessment and plan: Patient has been abstinent from alcohol since March 2020 and this needs to be maintained as an outpatient with ongoing evaluation and treatment with her PCP. (5) Chronic pulmonary embolism: Status: Chronic Assessment and plan: Continue Lovenox watching closely for bleeding sequelae. Patient does see hematology for this problem. Qualifiers: Pulmonary embolism type: other Acute cor pulmonale presence: without acute cor pulmonale Qualified Code(s): I27.82 - Chronic pulmonary embolism (6) DVT prophylaxis: Status: Acute Assessment and plan: lovenox (7) Discharge planning issues: Status: Acute Assessment and plan: case management following discussed with Dr Flynn Subjective Subjective Patient reports: pain is less, tolerating liquids well, tolerating a regular diet, voiding w/o difficulty, no bowel movement and afebrile Exam Narrative Exam Narrative: General: Patient appears older than stated age, obese and disheveled. She is alert and oriented x3. HEENT: Normocephalic, extraocular movement intact and sclera anicteric. Oropharynx with moist mucosa. Neck: Supple without JVD. Back: Slightly kyphotic Lungs: Clear to auscultation respirations even and unlabored Heart: Regular rate and rhythm Abdomen: Obese , soft nontender positive bowel sounds Extremities: Without edema l pulses intact. Skin: Normal color, warm and dry. Neuro: no focal deficits. Psych: Flattened affect with slight depressed mood, appropriate Objective Last Vital Signs Temp 36.5 C 07/11/20 07:40 Pulse 69 07/11/20 07:40 Resp 18 07/11/20 07:40 BP 101/65 07/11/20 07:40 Pulse Ox 100 07/11/20 07:40 Laboratory Results - last 24 hr 07/10/20 07/10/20 07/10/20 17:05 17:05 17:05 WBC 10.24 RBC 4.50 Hgb 14.8 Hct 44.4 MCV 98.7 H MCH 32.9 MCHC 33.3 RDW 13.3 Plt Count 300 MPV 9.4 Immature Gran % 0.5 Neutrophils % 77.3 Lymphocytes % 16.5 Monocytes % 4.6 Eosinophils % 0.8 Basophils % 0.3 Nucleated RBC % 0 Absolute Neutrophils 7.92 H Absolute Lymphocytes 1.69 Absolute Monocytes 0.47 Absolute Eosinophils 0.08 Absolute Basophils 0.03 Sodium 142 Potassium 3.8 Chloride 105 Carbon Dioxide 28.8 Anion Gap 8.2 BUN 11 Creatinine 0.8 Estimated GFR/1.73 m2 >= 60.00 Glucose 100 Calcium 9.4 Total Bilirubin 0.4 AST 15 ALT 21 Alkaline Phosphatase 108 Total Protein 7.4 Albumin 3.6 TSH 6.16 H Urine Color Urine Clarity Urine pH Ur Specific [place] Urine Protein Urine Ketones Urine Blood Urine Nitrite Urine Bilirubin Urine Urobilinogen Ur Leukocyte Esterase Urine Glucose COVID-19 Source SARS-CoV-2 (PCR) 07/10/20 07/10/20 07/11/20 17:25 20:56 06:35 WBC RBC Hgb Hct MCV MCH MCHC RDW Plt Count MPV Immature Gran % Neutrophils % Lymphocytes % Monocytes % Eosinophils % Basophils % Nucleated RBC % Absolute Neutrophils Absolute Lymphocytes Absolute Monocytes Absolute Eosinophils Absolute Basophils Sodium 144 Potassium 4.8 D Chloride 109 H Carbon Dioxide 29.6 Anion Gap 5.4 BUN 8 Creatinine 0.7 Estimated GFR/1.73 m2 >= 60.00 Glucose 85 Calcium 9.2 Total Bilirubin 0.5 AST 12 L ALT 17 Alkaline Phosphatase 89 Total Protein 6.3 L Albumin 3.0 L TSH Urine Color Yellow Urine Clarity Clear Urine pH 6.5 Ur Specific [place] 1.015 Urine Protein Negative Urine Ketones Negative Urine Blood Negative Urine Nitrite Negative Urine Bilirubin Negative Urine Urobilinogen 0.2 Ur Leukocyte Esterase Negative Urine Glucose Negative COVID-19 Source Nasal/nares SARS-CoV-2 (PCR) Negative 07/11/20 06:35 WBC 7.48 RBC 4.21 Hgb 13.6 Hct 42.1 MCV 100.0 H MCH 32.3 MCHC 32.3 RDW 13.4 Plt Count 257 MPV 9.3 Immature Gran % 0.4 Neutrophils % 69.1 Lymphocytes % 21.1 Monocytes % 7.2 Eosinophils % 1.9 Basophils % 0.3 Nucleated RBC % 0 Absolute Neutrophils 5.17 Absolute Lymphocytes 1.58 Absolute Monocytes 0.54 Absolute Eosinophils 0.14 Absolute Basophils 0.02 Sodium Potassium Chloride Carbon Dioxide Anion Gap BUN Creatinine Estimated GFR/1.73 m2 Glucose Calcium Total Bilirubin AST ALT Alkaline Phosphatase Total Protein Albumin TSH Urine Color Urine Clarity Urine pH Ur Specific [place] Urine Protein Urine Ketones Urine Blood Urine Nitrite Urine Bilirubin Urine Urobilinogen Ur Leukocyte Esterase Urine Glucose COVID-19 Source SARS-CoV-2 (PCR)
[2020-07-11] MEDS: Enoxaparin 80 MG/0.8 ML SYR SC ×2 (10:02→22:16)
[2020-07-11] MEDS: Calcium 600mg/Vit D 200U TAB 2 TAB PO ×2 (10:59→19:58)
[2020-07-11] MEDS: Cyclobenzaprine 10 MG TAB 5 MG PO ×3 (10:59→19:56)
[2020-07-11 11:03] VITALS: BP 102/66; PULSE 65; RESP 19; TEMP 36.5; O2SAT 96
--- NOTE | 2020-07-11 11:33 | PDOC.CMIN ---
- If Service Date Differs Date of service: 07/11/20 Time of Service: 11:33 Care Management Initial Assess REASON FOR HOSPITALIZATION:: Multiple vertebral compression fractures. PAST MEDICAL HISTORY/PAST SURGICAL HISTORY:: Medical History. Alcohol abuse. Anxiety. ASCUS with positive high risk HPV. Depression. Hypothyroidism. Pulmonary emboli. Ulcerative colitis. Surgical History. Hx of section. Hx of colonoscopy PREVIOUS FUNCTIONAL STATUS/SOCIAL/FAMILY SUPPORTS:: Martina is a 64 year old female who lives alone in an apartment in [facility]. She has two adult sons, one who resides in [place], [place], and one in [place]. She additionally has two grandchildren, one grandson and one granddaughter. Martina is retired but she previously worked at a variety of jobs. She does not drive but she is independent with her ADLs at baseline. Martina identifies her children and friends as a source of support for her. She spends her days reading and watching movies. CURRENT FUNCTIONAL STATUS:: Martina was lying in bed when CM met with her. She reported that she was in 8/10 pain, and stated that she had reported it to her RN. She stated that she has worked with PT, and expects to see them again today. CM discussed the plan with PT, who will be trying a brace with her to see if it improves her mobility. Martina stated that she is independent and does not forsee needing any services at this time. CM will continue to follow. ADVANCE DIRECTIVES:: None on file; CM offers the Advance Directives form and patient declines. Has patient been provided with info about the portal/API?: Yes Did the patient sign up for the portal?: No CODE STATUS:: Full Code INSURANCE COVERAGE / FINANCIAL ISSUES:: [employer] CURRENT HOME/COMMUNITY SERVICES/EQUIPMENT:: Utilizes [facility] for transportation needs. Denies any other services or equipment. PRIMARY CARE PHYSICIAN:: Genaro Henson DNP, SALES AND LEASING AGENT-C ([facility]) POTENTIAL DISCHARGE NEEDS:: Follow up appointment with PCP and discharge plan of care. PATIENT/FAMILY EDUCATION NEEDS:: Discharge instructions, limitations, follow up plan of care including Ask Me Three and self management. ANTICIPATED BARRIERS TO DISCHARGE:: None identified. TRANSPORTATION:: Via [facility] private vehicle. PLAN:: Anticipate Martina will be discharged home with no new services when medically cleared by provider. She will follow up with her PCP, community providers, and discharge plan of care as directed. Martina will be driven home by [facility] to be coordinated by CM when ready. CM will continue to support Martina and assess for discharge planning needs.
--- NOTE | 2020-07-11 11:45 | IN_ITS ---
Date of service: 07/11/20 Time of Service: 11:45 PT Notes Visit Reasons: multiple vertebral compression fractures Physical Therapy Inpatient Initial Evaluation Date: 07/11/2020 Referring Doctor: Marshall Iyer MD PT Orders: PT CONSULT: Eval/treat Precautions: Fall. Standard.? Activity as tolerated. Patient Profile/Admitting Diagnosis: Martina is a 65-year-old female who presented to the ED on 07/10/2020 with chief complaints of severe low back pain of 2 weeks duration and generalized weakness.? Patient is diagnosed L2-L3 compression fracture and T9-T12 compression fracture with central canal stenosis, osteoporosis, EtOH abuse, and chronic pulmonary embolism. PMHX: Medical History? Alcohol abuse Anxiety ASCUS with positive high risk HPV Depression Hypothyroidism Pulmonary emboli Ulcerative colitis Surgical History? Hx of section Hx of colonoscopy Social History/Home Situation: Lives alone in an apartment building with 4 steps to enter and rails on both sides.? Independent with community ambulation without an assistive device.? Independent with meals, laundry, housekeeping, and grocery shopping prior to admission. Equipment Owned/DME: Front wheel walker Subjective: Agreeable to PT consult.? Reports pain in the back shooting up to 10/10 with variable movement transition while in bed and getting out of bed.? Resting back pain is 6/10. Patient screamed due to sudden increase in pain level during sit<>supine movement transitions. Denies headache, chest pain, and dizziness throughout session. Objective: General Observation: IV access in the left UE.? Lidocaine patch on right lower thoracic/lumbar area. Electric heating pad under right lower thoracic lumbar area. Mental Status: Alert and oriented x 4 Pain: 6/10 back pain at rest, 10/10 with a variable movement transitions while in bed and during standing up ROM: Right Upper Extremity: ? Shoulder Flexion WFL. Shoulder abduction WFL. Elbow flexion WFL. Wrist flexion WFL. Opening and closing of hand WFL. Left Upper Extremity:? Shoulder Flexion WFL. Shoulder abduction WFL. Elbow flexion WFL. Wrist flexion WFL. Opening and closing of hand WFL. Right Lower Extremity: Hip flexion WFL. Hip abduction WFL. Knee flexion WFL. Ankle dorsiflexion WFL. Ankle plantarflexion WFL. Left Lower Extremity: Hip flexion WFL. Hip abduction WFL. Knee flexion WFL. Ankle dorsiflexion WFL. Ankle plantarflexion WFL. Strength: Right Upper Extremity: Shoulder flexors 4/5. Shoulder abductors 4/5. Elbow flexors 5/5. Elbow extensors 5/5. Day Care Assistant strong. Left Upper Extremity: Shoulder flexors 4/5. Shoulder abductors 4/5. Elbow flexors 5/5. Elbow extensors 5/5. Day Care Assistant strong. Right Lower Extremity: Hip flexors 4-/5. Hip abductors 4-/5. Knee flexors 4-/5. Knee extensors 4-/5. Ankle dorsiflexors 4-/5. Ankle plantarflexors 4-/5. Left Lower Extremity: Hip flexors 4-/5. Hip abductors 4-/5. Knee flexors 4-/5. Knee extensors 4-/5. Ankle dorsiflexors 4-/5. Ankle plantarflexors 4-/5. Sensation: Intact as to pain and light pressure in bilateral lower extremities Bed Mobility/Transfers: Rolling standby assist Supine to sit standby assist with HOB at 45 degrees due to complaint of abdominal pain Sit to supine minimal assist due to to BLE to minimize pain report Sit to stand standby assist Stand to sit standby assist Bed to chair standby assist Chair to bed standby assist Gait: Guided patient through level surface ambulation of 5?6 feet using a front wheeled walker requiring contact-guard assist with full weight bearing with increased complaint of pain at 7?8/10 with weight bearing.? Poppy decreased due to pain complaint.? No LOB.? No SOB.? Balance: Static Sitting: Normal Dynamic Sitting: Normal Static Standing: Fair Dynamic Standing: Fair Special Tests: Mobility Limitations Standardized Measure [facility] 6 clicks Basic Mobility Inpatient Short Form: Raw Score: 14 ? CMS Score: 61 % deficit? ? ? Informed Consent/Education:? Patient was instructed in purpose of PT consult and plan of care. Agreeable to established plan of care to achieve goals below. Assessment: Martina demonstrates functional mobility decline requiring the use of a front wheeled walker for all mobility ADL performance, decreased activity tolerance due to pain complaint, generalized weakness, impairment in balance, and increased risk for falls.? She will benefit from functional mobility training, progressive strengthening program time, and balance retraining in order to regain prior level of functional independence. Will coordinate with hospitalist regarding recommendation for the use of a TLSO in order to stabilize trunk and provide pain relief. Patient presents with clinical signs and symptoms consistent with current/adm itting diagnoses that have resulted to mobility limitations, gait instability, generalized weakness, and impairment of motor control as demonstrated by the following impairment level findings: 1.? Decreased strength to B LE major muscle groups 2.? Impaired standing balance 3.? Impaired activity tolerance 4.? Pain in low back due to multiple compression fractures Impairments are contributing to the following functional limitations: 1.? Dependent bed mobility skills 2.? Increased dependence with transfers 3.? Inability to safely ambulate without assistive device and physical assistance 4.? Increase completion time for mobility ADL performance 5.? Increased fall risk 6.? Inability to negotiate steps alone safely Patient is assessed as a 10257 moderate complexity based on the following: History: 64-year-old female with impairment level findings, functional limitations, and past medical history as indicated above Examination: Demonstrable impairment in strength, balance, and mobility level with underlying impairments and functional limitations as documented above Presentation:Evolving Decision Makin moderate complexity Goals: Goals X1 week 1. Supine-Sit independent 2. Sit-Supine independent 3. Sit-Stand independent 4. Stand-Sit independent 5. Bed-Chair independent 6. Chair-Bed independent 7. Independent gait on level surface without the use of an assistive device for at least 300 feet without report of pain nor dyspnea 8. Independent stair negotiation while holding onto bilateral rails for at least 5 steps without report of pain nor dyspnea 9. Independent with home exercise program 10. Good static and dynamic standing balance/tolerance Plan of Care/Treatment Plan: 1-2x/day, 7 days/week x 1 week. Plan of care has been reviewed with the [facility] SETTER providing the service under Physical Therapy direction. Initiate Physical Therapy intervention for strengthening, bed mobility, transfers, gait, stairs, balance training, use of assistive device. DISCHARGE RECOMMENDATIONS: Patient will benefit from home health PT services in order to progress mobility level using least restrictive assistive ambulatory device, assess home safety, identify additional equipment needs, and establish a functional maintenance program that will increase ability of patient to remain at home.? May continue to be in need of a front wheeled walker for community ambulation upon discharge to home. TREATMENT CODE/TIME: 29886 x 20 minutes, 01337 x 10 minutes beginning at 11:45 AM. Thank you for the opportunity to participate in the care of this patient. Toshia Buckley PT, DPT, CLT [facility] [place], [place]
--- NOTE | 2020-07-11 11:48 | PHA.REVIEW ---
Pharmacy Admission Review - Admission Clinical Review (Last Reviewed 07/10/20 @ 21:02 by Marshall Iyer) Thoracic vertebral fracture (Acute) Lumbar vertebral fracture (Acute) Chronic pulmonary embolism (Acute) Discharge planning issues (Acute) DVT prophylaxis (Acute) Sulfa (Sulfonamide Antibiotics) Adverse Reaction (Intermediate, Unverified 07/10/20 16:43) headache/ itching Height 5 ft 5 in Weight 76.4 kg - Renal Dosing Renal Dosing: BUN 8 mg/dL (7-18) 07/11/20 06:35 Creatinine 0.7 mg/dL (0.55-1.02) 07/11/20 06:35 Medications needing adjustments: Reviewed List of meds needing interventions: eCrCl using adjusted body weight is 84.1 ml/min - Anticoagulation Anticoagulation: Hgb 13.6 g/dL (11.2-15.7) 07/11/20 06:35 Hct 42.1 % (36.0-46.0) 07/11/20 06:35 Plt Count 257 10^3/uL (130-400) 07/11/20 06:35 Creatinine 0.7 mg/dL (0.55-1.02) 07/11/20 06:35 DVT Prohphylaxis: Reviewed Therapeutic Anticoagulation: Reviewed Medications: Enoxaparin - Opiate Usage Evaluate Pain Scale/Pains Meds: Intervened (started on dilauded 1mg IVP q4h without complete adequate pain control, I recommended started 50mcg fentanyl patch using an opioid equivalency conversion of 6mg IV dilaudid over 24 hours, will keep dilaudid PRN active for breakthrough pain and adjust fentanyl dose as needed) Scheduled Bowel Reg ordered if on Opiates?: Yes (PRN orders) - Relevant Labs Sodium 144 mmol/L (136-145) 07/11/20 06:35 Potassium 4.8 mmol/L (3.5-5.1) D 07/11/20 06:35 Chloride 109 mmol/L (98-107) H 07/11/20 06:35 Electrolytes, C-Reactive P, ESR: Reviewed - DM Control DM Control: Glucose 85 mg/dL (74-106) 07/11/20 06:35 Insulin Dosing: N/A - Heart Failure/MT EF%, MARY's, B-Blockers, Diuretics: N/A - BP Control BP Control: Blood Pressure 102/66 Blood Pressure 101/65 Blood Pressure 99/63 Blood Pressure 117/76 If elevated: Reviewed - Qtc Review If Elevated: N/A - IV to PO Switch IV Medications: Reviewed - Home Meds Home Med List reviewed: Intervened Relevent Home Meds Not ordered & why?: added tizanidine 4mg tabs and updated pregabalin dose; tizanidine not ordered and pregabalin ordered but at her previously lower dose -- will notify provider - Current meds Current Medication Order Review: Intervened (Recommended changing the bisphosphonate order to Reclast as its typically recommended over IV ibandronate -- better data and the once a year scheduling is more convenient, scheduled tylenol dosing to mitigate any flu-like reaction following the infusion) - Comments Comments/Follow Ups: monitor for adequate pain control and rec adjustments as needed
[2020-07-11] MEDS: fentaNYL 50 MCG PATCH TD (13:07)
[2020-07-11 15:54] VITALS: BP 100/62; PULSE 68; RESP 20; TEMP 36.5; O2SAT 93
[2020-07-11 19:44] VITALS: BP 112/68; PULSE 63; RESP 20; TEMP 36.4; O2SAT 93
[2020-07-11] MEDS: Polyethylene Glycol 3350 17 GM PACKET PO (19:53)
[2020-07-11] MEDS: Docusate Sodium 100 MG CAP PO (19:57)
[2020-07-11 23:12] VITALS: BP 103/68; PULSE 72; RESP 18; TEMP 36.1; O2SAT 95
[2020-07-12] VITALS (8 sets, daily range): BP systolic 86–127; BP diastolic 54–83; PULSE 72–88; RESP 16–18; TEMP 36.3–36.9; O2SAT 90–97
--- NOTE | 2020-07-12 | DI.RAD_ITS ---
Exam(s) XR ABDOMEN FLAT UPRIGHT EXAM: XR ABDOMEN FLAT UPRIGHT CLINICAL HISTORY: vomiting, constipation. TECHNIQUE: 2D digital imaging was performed. COMPARISON: [facility] XR ABDOMEN FLAT UPRIGHT from 03/23/2020 FINDINGS: Bowel gas pattern is nonspecific. No evidence of bowel obstruction or free air. No calcifications s een over the kidneys nor along the course of the ureters. Regional bones appear unremarkable with th e exception of slight loss of height at superior endplate levels of L2 and L3 vertebral bodies which appears to be new finding from 03/23/2020. IMPRESSION: DATA REPOSITORY: RADIATION DOSE DELIVERED:
[2020-07-12] MEDS: Normal Saline 500 ML 30 ML IV (02:37)
[2020-07-12] MEDS: Normal Saline Flush 10 ML SYR IVP ×5 (02:39→15:34)
[2020-07-12] MEDS: HYDROmorphone 2 MG/ML VIAL 1 MG IVP (02:39)
[2020-07-12] MEDS: Levothyroxine 100 MCG TAB PO (05:53)
--- NOTE | 2020-07-12 08:59 | CMPROGNOTE_ITS ---
- If Service Date Differs Date of service: 07/12/20 Time of Service: 08:59 Care Management Progress Note S/O:martina was sitting up in bed when CM met with her. She was pleasant and agreeable to conversation. When questioned, Martina indicated that there was no precipitating event that resulted in her multiple fractured vertebrae. She stated she did not fall or injure herself, her back just became more and more painful. Martina stated that the pain medicine she is getting, a Fentanyl patc h, is helping greatly to ease the pain as is the back brace she is wearing. She shared that she would be agreeable to home health PT if recommended at discharge. Martina vomited last night and again this morning. An abdominal xray was done and was negative, ruling out an obstruction or ileus. A: Martina is a 65 year old woman admitted on 07/10/20 with multiple vertebral fractures P:Anticipate Martina will be discharged home with new services for PT when medically cleared by provider. She will follow up with her PCP, community providers, and discharge plan of care as directed. Martina will be driven home by [facility] to be coordinated by CM when ready. CM will continue to support Martina and assess for discharge planning needs.
[2020-07-12] MEDS: Nicotine 21 MG/24 HR PATCH TD (09:13)
--- NOTE | 2020-07-12 09:33 | OT.INNT ---
Date of service: 07/12/20 Time of Service: 08:20 Occupational Therapy Notes 07/12/20 OT attempted to see pt who was lying in bed when OT arrived. OT attempted to wake pt up who refused performance of OT services this morning. OT will attempt to resume services tomorrow as pt tolerates. Li Cadet, OTR/L THELMA
[2020-07-12] MEDS: Ondansetron 4 MG/2 ML VIAL IVP (09:58)
[2020-07-12] MEDS: Enoxaparin 80 MG/0.8 ML SYR SC ×2 (09:59→21:12)
--- NOTE | 2020-07-12 10:55 | W.PM.PROGNOT ---
Date of Service Date of service: 07/12/20 Time of Service: 10:55 Assessment and Plan Assessment and plan (1) Vomiting: Status: Acute Assessment and plan: no evidence of bowel obstruction, possible d/t dilaudid which is being discontinued add ondansetron. continue bowel management as she is constipated. continue to monitor. (2) Lumbar vertebral fracture: Status: Acute Assessment and plan: pain better managed after added fentanyl patch, consider titrating down fentanyl patch in 1 week or so continue scheduled tylenol, stop IV dilaudid, add tramadol prn and 2 days of prn toradol. PT/OT back brace bowel management Qualifiers: Encounter type: initial encounter Fracture morphology: other fracture Fracture type: closed Lumbar vertebra fracture level: unspecified lumbar vertebra Qualified Code(s): S32.008A - Other fracture of unspecified lumbar vertebra, initial encounter for closed fracture (3) Thoracic vertebral fracture: Status: Acute Assessment and plan: Treatment plan as per lumbar vertebral fractures. Qualifiers: Encounter type: initial encounter Fracture morphology: other fracture Fracture type: closed Thoracic vertebra fracture level: unspecified thoracic vertebra Qualified Code(s): S22.008A - Other fracture of unspecified thoracic vertebra, initial encounter for closed fracture (4) Osteoporosis: Status: Chronic Assessment and plan: added vitamin D/calcium supplementation and received reclast infusion yesterday. Qualifiers: Encounter type: initial encounter Osteoporosis type: other Presence of current pathological fracture: with current pathological fracture Qualified Code(s): M80.80XA - Other osteoporosis with current pathological fracture, unspecified site, initial encounter for fracture (5) Alcohol abuse: Status: Chronic Assessment and plan: Patient has been abstinent from alcohol since March 2020 and this needs to be maintained as an outpatient with ongoing evaluation and treatment with her PCP. (6) Chronic pulmonary embolism: Status: Chronic Assessment and plan: Continue Lovenox watching closely for bleeding sequelae. Patient does see hematology for this problem. Qualifiers: Acute cor pulmonale presence: without acute cor pulmonale Pulmonary embolism type: other Qualified Code(s): I27.82 - Chronic pulmonary embolism (7) DVT prophylaxis: Status: Acute Assessment and plan: on full dose lovenox (8) Discharge planning issues: Status: Acute Assessment and plan: case management following discussed with Dr Flynn Subjective Subjective Patient reports: feels better, voiding w/o difficulty, no bowel movement, nausea, vomiting and afebrile Exam Narrative Exam Narrative: General: Patient appears older than stated age, obese and disheveled. She is alert and oriented x3. HEENT: Normocephalic, extraocular movement intact and sclera anicteric. Oropharynx with moist mucosa. Neck: Supple without JVD. Back: Slightly kyphotic Lungs: Clear to auscultation respirations even and unlabored Heart: Regular rate and rhythm Abdomen: Obese , soft nontender positive bowel sounds Extremities: Without edema, pulses intact. Skin: Normal color, warm and dry. Neuro: no focal deficits. Psych:normal mood and affect Objective Last Vital Signs Temp 36.9 C 07/12/20 08:31 Pulse 88 07/12/20 08:31 Resp 16 07/12/20 08:31 BP 127/83 07/12/20 08:31 Pulse Ox 95 07/12/20 08:31
[2020-07-12] MEDS: Polyethylene Glycol 3350 17 GM PACKET PO ×2 (11:07→19:47)
[2020-07-12] MEDS: ARIPiprazole 5 MG TAB PO (11:08)
[2020-07-12] MEDS: Cyclobenzaprine 10 MG TAB 5 MG PO (11:08)
[2020-07-12] MEDS: Docusate Sodium 100 MG CAP PO ×2 (11:09→19:47)
[2020-07-12] MEDS: Acetaminophen 325 MG TAB 650 MG PO ×3 (11:10→19:47)
[2020-07-12] MEDS: Escitalopram 20 MG TAB PO (11:10)
[2020-07-12] MEDS: Pantoprazole 40 MG VIAL IVP (11:31)
--- NOTE | 2020-07-12 14:56 | CHAPLAIN ---
Martina and I remembered each other from a previous admission. She is wearing a brace because of broken vertebrae. Moving is difficult, but she said she was able to sleep. She has some family in town, she said. I didn't get a sense of how supportive they are with Martina. I will continue to visit.
--- NOTE | 2020-07-12 15:13 | PTTR_ITS ---
Date of service: 07/12/20 Time of Service: 15:13 PT Notes Visit Reasons: multiple vertebral compression fractures Physical Therapy Inpatient Treatment Note Date: 07/12/2020 Precautions: Fall. Standard.? Activity as tolerated. Back precautions on. Subjective: Reports good stabilization of trunk from using thoracolumbosacral orthosis /TLSO with better ability to tolerate supine<>sit movement transitions since yesterday. Anxious of persistent inability to have a bowel movement, nursing and MD in the process of managing this issue. Reports highest pain at 6- 7/10 in the back this morning and 8/10 in the afternoon session. Objective: General Observation: Appears less distressed than she did yesterday. IV access in the left UE.?Electric heating pad under right lower thoracic lumbar area. TLSO on. Mental Status: Alert and oriented x 4 Pain: 6-7/10 in the AM , 8/10 in the PM Sensation: Intact as to pain and light pressure in bilateral lower extremities Bed Mobility/Transfers: Rolling supervision Supine to sit supervision Sit to supine supervision Sit to stand supervision Stand to sit supervision Bed to chair supervision Chair to bed supervision Gait: Guided patient through level surface ambulation of 300 feet in the a.m. session and another 300 feet in the p.m. session using a front wheeled walker requiring standby assist with full weight bearing. Poppy improving.? Standing rest x 2 needed due twinges of pain that resolves with momentary rest. Stairs: In the afternoon session patient tolerated up-and-down six 4 inch steps and four 6 inch steps while holding onto bilateral rails first and then transitioning to just holding onto 1 rail requiring standby assist and minimal verbal cueing for correct technique and safety. Balance: Static Sitting: Normal Dynamic Sitting: Normal Static Standing: Fair Dynamic Standing: Fair Assessment: Much improved mobility performance and activity tolerance have been noted with the use of a TLSO. Beginning anxiety over her inability to have a bowel movement observed. DISCHARGE RECOMMENDATIONS: Patient will benefit from home health PT services in order to progress mobility level using least restrictive assistive ambulatory device, assess home safety, identify additional equipment needs, and establish a functional maintenance program that will increase ability of patient to remain at home.? May continue to be in need of a front wheeled walker for community ambulation upon discharge to home. TREATMENT CODE/TIME: Session [id number] 0 x 23 minutes beginning at 11:47 AM Session [id number] 0 x 32 minutes beginning at 15:13 PM.
[2020-07-12] MEDS: Bisacodyl 10 MG SUPP PR (15:34)
[2020-07-12] MEDS: Ketorolac 15 MG/ML VIAL IVP (15:34)
[2020-07-12] MEDS: Milk of Magnesia 30 ML CUP PO (17:47)
[2020-07-12] MEDS: Calcium 600mg/Vit D 200U TAB 2 TAB PO (19:48)
[2020-07-13] MEDS: traMADol 50 MG TAB PO ×2 (02:43→09:09)
[2020-07-13 03:33] VITALS: BP 103/67; PULSE 72; RESP 17; TEMP 36.2; O2SAT 95
[2020-07-13] MEDS: Levothyroxine 100 MCG TAB PO (05:52)
[2020-07-13 07:27] VITALS: BP 104/69; PULSE 90; RESP 18; TEMP 36.7; O2SAT 95
[2020-07-13] MEDS: Docusate Sodium 100 MG CAP PO (08:21)
[2020-07-13] MEDS: Acetaminophen 325 MG TAB 650 MG PO ×2 (08:21→11:05)
[2020-07-13] MEDS: Pantoprazole 40 MG VIAL IVP (08:21)
[2020-07-13] MEDS: Folic Acid 1 MG TAB PO (08:21)
[2020-07-13] MEDS: Polyethylene Glycol 3350 17 GM PACKET PO (08:22)
[2020-07-13] MEDS: Calcium 600mg/Vit D 200U TAB 2 TAB PO (08:22)
[2020-07-13] MEDS: ARIPiprazole 5 MG TAB PO (08:22)
[2020-07-13] MEDS: Thiamine 100 MG TAB PO (08:22)
[2020-07-13] MEDS: Nicotine 21 MG/24 HR PATCH TD (08:22)
[2020-07-13] MEDS: Cyanocobalamin 500 MCG TAB 1000 MCG PO (08:22)
[2020-07-13] MEDS: Escitalopram 20 MG TAB PO (08:22)
[2020-07-13] MEDS: Normal Saline Flush 10 ML SYR IVP (08:23)
[2020-07-13] MEDS: Enoxaparin 80 MG/0.8 ML SYR SC (10:02)
[2020-07-13] MEDS: Bisacodyl 10 MG SUPP PR (10:31)
[2020-07-13 11:04] VITALS: BP 84/58; PULSE 72; RESP 17; TEMP 36.6; O2SAT 94
[2020-07-13] MEDS: Normal Saline 500 ML IV (11:31)
[2020-07-13 12:00] VITALS: BP 92/56
--- NOTE | 2020-07-13 12:17 | DSE_ITS ---
Date of service: 07/13/20 Time of Service: 12:17 DS: Diagnosis Discharge Diagnosis (1) Lumbar vertebral fracture: Start date: 07/13/20 Start time: 12:18 Status: Acute Asessment and Plan: Improved pain and movement with brace. She does well with this. Will discharge home with HH PT/OT and pain management F/u pcp in 1-2 weeks bowel regimen (2) Thoracic vertebral fracture: Start date: 07/13/20 Start time: 12:33 Status: Acute Asessment and Plan: as above (3) Osteoporosis: Start date: 07/13/20 Start time: 12:33 Status: Chronic Asessment and Plan: continue with vitamin d and calcium supplement (4) Alcohol abuse: Start date: 07/13/20 Start time: 12:34 Status: Chronic Asessment and Plan: abstain from alcohol (5) Chronic pulmonary embolism: Start date: 07/13/20 Start time: 12:35 Status: Chronic Asessment and Plan: continue enoxaparin above discussed with dr. chirinos Discharge Plan Disposition Patient Disposition: HOME W/HOME HEALTH SERVICE Condition: Improving Discharge Details Reason For Visit: multiple vertebral compression fractures Admit Date/Time: 07/10/20 20:55 Admit Provider: Marshall Iyer Attending Provider: Marshall Iyer Primary Care Provider: Genaro Bonilla Hospital Course Hospital Course: This is a 65-year-old female patient who has had problems with chronic alcoholism exacerbated in this last year and recently quitting drinking alcohol in March of this year after a bout of pancreatitis requiring hospitalization.? She was on naltrexone but this was discontinued last week when she was placed on Vicodin for back pain which had been bothering her since the end of May but worsened over the last 2 weeks.? She had no injury to the back but with imaging originally early May there were compression fractures in the lumbar and thoracic spine with osteoporosis.? The patient had worsening pain the day of admission and reported to the ED for evaluation with CT of the T-spine and LS spine showing the same compression fracture seen on plain film with additional compression fractures appearing acute.? There were some retropulsion of the compression fractures causing mild spinal stenosis but patient was neurologically intact with orthopedic consultation in the ED recommending a brace with no other interventions.? She is having no signs or symptoms of spinal cord stenosis progressing or causing cauda equina.? Neurosurgery was not consulted. She currently is on Lovenox for recurrent pulmonary emboli failed oral anticoagulation.? She does not take calcium supplements, biphosphonate's or vitamin D supplements. She was asked to be admitted to hospitalists services. Over course of hospitalization she worked with PT/OT. Brace was placed. Pain was managed with multiple analgesics. She was nauseated but since has resolved no vomiting or nausea in over 24 hours. She does tend to run lower bp. She was running in lower 80's today 500 cc bolus given up to 90's systolically. Asymptomatic. She tends to run lower. Fentynal patch added for pain for better pain management. This has helped. PT stated she would benefit from home HH pt/ot she feels much better with brace and feels up to being discharged. With discharge on bowel regimen Vitamin d/calcium and pain management. She denies CP, sOB, N/VD. F/U with PCP in 2 weeks. Continue Enoxaparin subcut Home Meds and New Rx's Prescriptions: New cyclobenzaprine 10 mg Tablet 5 mg PO TID PRN PRN (Reason: back spasm) Qty: 60 RF: 0 fentanyl [Duragesic] 50 mcg/hr Patch 72 Hour 50 mcg transdermal Q72H Qty: 20 RF: 0 calcium carbonate-vitamin D3 [Calcium 600 + D(3)] 600 mg(1,500mg) -200 unit Tablet 2 tab PO BID Qty: 60 RF: 0 tramadol 50 mg Tablet 50 mg PO Q6H PRN PRNQty: 20 RF: 0 bisacodyl 10 mg Suppository 10 mg CO DAILY PRN PRNQty: 10 RF: 0 docusate sodium [Colace] 100 mg Capsule 100 mg PO BID Qty: 30 RF: 0 Continued folic acid 1 mg tablet 1 mg PO DAILY RF: 0 tizanidine 4 mg tablet 4 mg PO Q8H PRNRF: 0 pregabalin 150 mg capsule 150 mg PO BID RF: 0 escitalopram oxalate [Lexapro] 20 mg Tablet 20 mg PO DAILY RF: 0 aripiprazole [Abilify] 5 mg Tablet 5 mg PO DAILY RF: 0 omeprazole 20 mg capsule,delayed release(DR/EC) 20 mg PO DAILY RF: 0 enoxaparin 80 mg/0.8 mL Syringe 80 mg subcut Q12H Qty: 60 RF: 0 levothyroxine 100 mcg tablet 100 mcg PO DAILY RF: 0 thiamine mononitrate (vit B1) [Vitamin B-1 (mononitrate)] 100 mg Tablet 100 mg PO DAILY Qty: 30 RF: 0 naltrexone 50 mg tablet 50 mg PO DAILY Qty: 30 RF: 2 nicotine [Nicoderm CQ] 21 mg/24 hr patch 24 hour 1 patch transdermal DAILY Qty: 28 RF: 2 cyanocobalamin (vitamin B-12) [Vitamin B-12] 1,000 mcg tablet 1,000 mcg PO DAILY Qty: 90 RF: 3 Discharge Instructions Instructions: Constipation (DC), Vertebral Compression Fracture (DC) Additional Instructions: Follow up with PCP in 1-2 weeks Take medications as prescribed Stand Alone Forms: Nursing Discharge Form Activity:: Activity as Tolerated Equipment/Supplies:: No Equipment Needed Diet:: As Tolerated Discharge Orders Discharge Orders: Discharge Order (Routine); Ordered 07/13/20 Ordered By: Brittnee Sands DS: Summary Time Spent with Patient providing and/or coordinating discharge services: Greater than 30 minutes (approx 45) Status at Discharge Functional status at discharge: independent ambulation Overall status at discharge: patient is progressing back to baseline Mental Status: mental status grossly normal Speech and Movement: speech and movement normal Mood: congruent mood Affect: normal affect Exam Narrative Exam Narrative: General: Patient appears older than stated age, obese and disheveled. She is alert and oriented x3. HEENT: Normocephalic, extraocular movement intact and sclera anicteric. Oropharynx with moist mucosa. Neck: Supple without JVD. Back: Slightly kyphotic Lungs: Clear to auscultation respirations even and unlabored Heart: Regular rate and rhythm Abdomen: Obese , soft nontender positive bowel sounds Extremities: Without edema, pulses intact. Skin: Normal color, warm and dry. Neuro: no focal deficits. Psych:normal mood and affect Psych Mental Status: mental status grossly normal Speech and Movement: speech and movement normal Mood: congruent mood Affect: normal affect DS: Data Vitals/I&O Vitals and I&O: Vital Signs Temperature 36.6 C 07/13/20 11:04 Temperature Source Temporal Artery Scan 07/13/20 11:04 Pulse 72 07/13/20 11:04 Pulse Rhythm Regular 07/13/20 03:59 Respiratory Rate 17 07/13/20 11:04 Respiratory Effort Non-Labored 07/13/20 03:59 Respiratory Depth Normal 07/13/20 03:59 Respiratory Pattern Normal 07/13/20 03:59 Blood Pressure 92/56 L 07/13/20 12:00 Blood Pressure Position Supine 07/10/20 16:38 Pulse Oximetry 94 07/13/20 11:04 Oxygen Delivery Method Room Air 07/13/20 11:04 Oxygen Flow Rate 0 07/13/20 11:04 Pain Level 5 07/13/20 11:05 Comment 07/13/20 11:04 Intake & Output 07/12/20 07/13/20 07/13/20 23:59 11:59 23:59 Intake Total 610 / 1060 950 / 950 Output Total 350 / 1675 200 / 600 400 / 600 Balance 260 / -615 750 / 350 -400 / 350 Weight 76.1 kg Intake: IV 470 / 470 Oral 610 / 610 480 / 480 Output: Urine 350 / 750 200 / 600 400 / 600 Other: Urine Color Yellow Dark Mery Yellow Urine Appearance Cloudy Clear Clear Urine Odor Normal Normal None Comment urine mixed with some stool Stool Size Smear Moderate Stool Characteristics Liquid Soft Brown Voiding Methods Toilet Toilet Toilet Data Completed and Pending Completed studies during hospitalization [Text1]: : 1955 Age: 65 ? Exam(s) a CT:CT thoracic & lumbar spine wo Exam(s) CT THORACIC ? LUMBAR SPINE WO EXAM: ? CT THORACIC ? LUMBAR SPINE WO CLINICAL HISTORY: ? severe pain, hx of fx. ? TECHNIQUE:? Imaging Protocol: Axial computed tomography images with coronal and sagittal reformatted images were created and reviewed. CONTRAST MATERIAL:? Intravenous: None COMPARISON:? CR XR LUMBAR SPINE COMPLETE from 07/02/2020 FINDINGS: CT LUMBAR SPINE: There is compression fracture of superior endplate of L2 with approximately 25 percent height loss and approximately 4-5 millimeter retropulsion posterior cortex with some impingement the thecal sac with mild- moderate central canal stenosis.? There is also a compression fracture superior endplate of L3 approximately 15 percent height loss and approximately 2-3 millimeter retropulsion of posterior cortex with mild central canal stenosis at this level.? There also compression fractures T9 and T12 as discussed below.? Also with element of canal stenosis these levels.? INTERVERTEBRAL DISCS: No large disk herniations are identified. FACET JOINTS: There is no significant facet arthropathy in the lumbosacral spinal column. VISUALIZED SACRUM: No evidence of fracture.? No findings in the sacral canal.? Sacroiliac joints unremarkable. CT THORACIC SPINE: At the T12 level there is a superior endplate compression fracture with approximately 40-50 percent height loss and approximately 4-5 millimeters retropulsion of the posterior cortex causing moderate central spinal canal stenosis. There is also an inferior endplate compression fracture at T9 level with approximately 25 percent height loss and mild retropulsion of posterior cortex by approximately 3-4 millimeters resulting in mild central spinal canal stenosis. INTERVERTEBRAL DISCS: There are no disc herniations evident in the thoracic spinal column.? No obvious foraminal stenosis. There is generalized osteopenia.? However, there are no discrete ominous focal hepatic lesions identified. IMPRESSION: 1. There are acute appearing compression fractures of L2 and L3 vertebral bodies as described above.? Mild-moderate central canal stenosis noted at L2 level. 2. Compression fractures at T9-T12 with mild retropulsion-mild canal stenosis at these levels. 3. There is generalized osteopenia.? No discrete ominous focal osseous lesions evident. 4. No evidence of sacral fracture. : 1955 Age: 65 ? Exam(s) PROCEDURE INFORMATION: Exam: CT Thoracic Spine Without Contrast Exam date and time: 07/10/2020 4:48 PM Age: 65 years old Clinical indication: Other: Severe pain, HX of FX, no recent trauma TECHNIQUE: Imaging protocol: Computed tomography images of the thoracic spine without contrast. Radiation optimization: All CT scans at this facility use at least one of these dose optimization techniques: automated exposure control; mA and/or kV adjustment per patient size (includes targeted exams where dose is matched to clinical indication); or iterative reconstruction. COMPARISON: No relevant prior studies available. FINDINGS: Vertebrae: T9 inferior endplate compression deformity with roughly 30% loss of inferior height. Mild retropulsion of posterior T9 vertebral body impression upon the thoracic spinal thecal sac by 4 mm with mild canal stenosis. In addition, there is a superior T12 endplate compression fracture with roughly 50% loss of height and posterior retropulsion superior vertebral body by 5 mm with moderate canal stenosis.? No spondylolisthesis or spondylolysis. Discs/Spinal canal/Neural foramina: No significant disc protrusion. No additional sites of severe spinal canal stenosis. No significant neural foraminal narrowing. Other bones/joints: Severe generalized osteopenia with multilevel insufficiency fractures. No lytic or blastic osseous lesion. Soft tissues: Unremarkable. Lungs: Posterolateral right lower lobe pleural-based internally calcified large pulmonary nodules likely reflect prior granulomatous disease. Inflammatory atelectasis in the superior segment and posterior juxtapleural inferior left lower lobe. IMPRESSION: 1. T9 and T12 vertebral body endplate deformities with mild posterior retropulsion of vertebral bodies onto the thecal sac leading to [id number] canal stenosis at these levels, respectively.? Severe generalized osteopenia leading to these insufficiency fractures. 2. Probable old calcified granulomas in the right lower lobe. Atelectasis in the posterior left lower lobe. Exam(s) XR ABDOMEN FLAT ? UPRIGHT EXAM:? XR ABDOMEN FLAT ? UPRIGHT CLINICAL HISTORY: ? vomiting, constipation. ? TECHNIQUE:? 2D digital imaging was performed. COMPARISON:? CR XR ABDOMEN FLAT ? UPRIGHT from 03/23/2020 FINDINGS: Bowel gas pattern is nonspecific.? No evidence of bowel obstruction or free air.? No calcifications seen over the kidneys nor along the course of the ureters.? Regional bones appear unremarkable with the exception of slight loss of height at superior endplate levels of L2 and L3 vertebral bodies which appears to be new finding from 03/23/2020. IMPRESSION: [facility] Medical History Alcohol abuse Anxiety ASCUS with positive high risk HPV Depression Hypothyroidism Pulmonary emboli Ulcerative colitis Surgical History Hx of section Hx of colonoscopy Family History Father Heart disease Paternal Grandmother Cancer Maternal Grandmother Cancer Social History Smoking/Tobacco Use Status: Current every day Tobacco Type: cigarettes Years smoked: 46 Tobacco: How many years used: 46 Smoking risk assessment performed?: Yes Alcohol Intake: former Drug use: Daily Substance use type: marijuana Current gender identity: female Do you feel safe at home: Yes Do you feel safe in your relationship?: Yes
[2020-07-13 12:40] VITALS: BP 90/64
--- NOTE | 2020-07-13 13:09 | OTTR_ITS ---
Date of service: 07/13/20 Time of Service: 09:30 Occupational Therapy Notes Occupational Therapy Inpatient Treatment Note Date: 07/13/20 PRECAUTIONS: Fall, standard, Full SUBJECTIVE: Pt was sitting in bed when OT arrived, she notes that she is tired but willing to participate in todays session. she has a back brace on and feels that this is helping. OBJECTIVE: PAIN:5/10 pain in back BATHING: sitting in bed as pt refuses moving from bed with max (A) set up/clean up Upper Body: (I) face, neck and (B) UE Lower Body: (I) rahel area DRESSING: sitting in bed with min vc Upper Extremity: min (A) [facility] gown Lower Extremity: Max (A) ASSESSMENT/PLAN: Pt states that she is not sure when she will be leaving, she appears to have less pain with her brace. TREATMENT CODES/TIME: 76434, 15 minutes (09:30) Li Cadet OTR/[facility]
--- NOTE | 2020-07-13 13:38 | PDOC.HHF2F ---
Home Health Certification Home Health Certification: 1. Encounter Date and Reason I certify that Martina Kuhn was seen by Brittnee Sands on 07/13/20 and that I had a [id number] encounter with this patient that meets the physician face to face encounter requirements. 2. Clinical Findings Supporting Skilled Need and Homebound Status I certify that home health services are medically necessary, include either intermittent nursing home and/or physical/speech therapy, and that this patient is homebound in that absences from the home require considerable and taxing effort and are infrequent or of short duration, or are attributable to the need to receive medical care. [X] (a) Attached documentation from encounter provides clinical findings supporting skilled need and homebound status (including what assistance patient requires to leave the home). The encounter with the patient was in whole, or in part, for the following medical condition, which is the primary reason for home health care: multiple vertebral compression fractures Physical Therapy: Pt would benefit from PT/OT for improved strength and balance and improved pain Patient would benefit from SERVICE PROVIDER Homebound: Unable to leave home without assistance. 3. Certification and Authentication I certify that I composed the above information based on my clinical judgement relating to this patient's medical condition and, if applicable, clinical findings communicated to me by the NPP or inpatient physician who performed the Home Health Referral. All further orders will be obtained through Genaro Bonilla (Community Based Physician - PCP)
--- NOTE | 2020-07-13 13:48 | PT.INTREAT ---
Date of service: 07/13/20 Time of Service: 10:15 PT Notes Visit Reasons: multiple vertebral compression fractures Inpatient Physical Therapy Treatment Note [facility] Date: 07/13/2020 PRECAUTIONS: Activity as tolerated, back precautions SUBJECTIVE: Martina is pleasant and agreeable to PT. She states that she is still having some back pain, but that the TLSO brace is supportive and helps decrease the back discomfort. OBJECTIVE: PAIN: Patient c/o back pain with gait training BED MOBILITY/TRANSFERS Supine-sit: I with HOB flat with verbal cueing for log roll technique Sit-supine: I with HOB flat with verbal cueing for log roll technique Sit-stand: I Stand-sit: I GAIT Assistive Device: FWW Weight bearing: WBAT B Assist: SBA Distance: 300' STAIRS: Refused additional stair training ASSESSMENT: Patient demonstrates independence with bed mobility, although did require minimal cueing for technique with log rolling. She would benefit from core strengthening for improved mobility and decreased back pain with movement. PLAN: Follow up with PT upon discharge for core strengthening and stabilization. TREATMENT CODE/TIME: 10 minutes; 69721 (10:15)
--- NOTE | 2020-07-13 16:05 | CMDISCH_ITS ---
- If Service Date Differs Date of service: 07/13/20 Time of Service: 16:05 LACE Index Scoring Tool - Questions: Length of Stay (in days): 3 Acuity (Admit via E.D.?): Yes E.D. Visits: 10 - Answers: Total Score: 10 Risk of Readmission: High Risk Care Management Discharge Reason for Hospitalization: Multiple vertebral compression fractures. 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 CM called [facility] to inform them of her discharge. CM coordinated her transportation home via private vehicle by [facility]. She was provided a back brace through [facility], coordinated by PT and CM. She will follow up with her PCP and discharge plan of care. Patient/Family Education Needs: Review discharge instructions regarding activity levels and medications, discussion of self care needs including ask me three. Services Needed at Discharge: Home Health Care Services (HH PT, OT, CASTING MACHINE OPERATOR), Transportation ([facility] private vehicle)
--- NOTE | 2020-07-16 12:20 | INDS_ITS ---
Date of service: 07/16/20 PT Notes Visit Reasons: multiple vertebral compression fractures Physical Therapy Inpatient Discharge Summary Date: 07/16/2020 Date of service: 07/11/2020 through 07/13/2020 This is a clinical summary of care provided on the duration of dates listed above. No charge was made in the completion of this documentation. Referring Doctor: Marshall Iyer MD PT Orders: PT CONSULT: Eval/treat Precautions: Fall. Standard.? Activity as tolerated. Patient Profile/Admitting Diagnosis: Martina is a 65-year-old female who presented to the ED on 07/10/2020 with chief complaints of severe low back pain of 2 weeks duration and generalized weakness.? Patient is diagnosed L2-L3 compression fracture and T9-T12 compression fracture with central canal stenosis, osteoporosis, EtOH abuse, and chronic pulmonary embolism. PMHX: Medical History? Alcohol abuse Anxiety ASCUS with positive high risk HPV Depression Hypothyroidism Pulmonary emboli Ulcerative colitis Surgical History? Hx of section Hx of colonoscopy Social History/Home Situation: Lives alone in an apartment building with 4 steps to enter and rails on both sides.? Independent with community ambulation without an assistive device.? Independent with meals, laundry, housekeeping, and grocery shopping prior to admission. Equipment Owned/DME: Front-wheeled walker Subjective: NT. See most recent LABORATORY MECHANICAL TECHNICIAN notes. Objective: General Observation: NT. See most recent LABORATORY MECHANICAL TECHNICIAN notes. Mental Status: NT. See most recent LABORATORY MECHANICAL TECHNICIAN notes. Pain: NT. See most recent LABORATORY MECHANICAL TECHNICIAN notes. ROM: Right Upper Extremity: ? Shoulder Flexion WFL. Shoulder abduction WFL. Elbow flexion WFL. Wrist flexion WFL. Opening and closing of hand WFL. Left Upper Extremity:? Shoulder Flexion WFL. Shoulder abduction WFL. Elbow flexion WFL. Wrist flexion WFL. Opening and closing of hand WFL. Right Lower Extremity: Hip flexion WFL. Hip abduction WFL. Knee flexion WFL. Ankle dorsiflexion WFL. Ankle plantarflexion WFL. Left Lower Extremity: Hip flexion WFL. Hip abduction WFL. Knee flexion WFL. Ankle dorsiflexion WFL. Ankle plantarflexion WFL. Strength: Right Upper Extremity: Shoulder flexors 4/5. Shoulder abductors 4/5. Elbow flexors 5/5. Elbow extensors 5/5. Trailer Truck Driver strong. Left Upper Extremity: Shoulder flexors 4/5. Shoulder abductors 4/5. Elbow flexors 5/5. Elbow extensors 5/5. Trailer Truck Driver strong. Right Lower Extremity: Hip flexors 4-/5. Hip abductors 4-/5. Knee flexors 4-/5. Knee extensors 4-/5. Ankle dorsiflexors 4-/5. Ankle plantarflexors 4-/5. Left Lower Extremity: Hip flexors 4-/5. Hip abductors 4-/5. Knee flexors 4-/5. Knee extensors 4-/5. Ankle dorsiflexors 4-/5. Ankle plantarflexors 4-/5. Sensation: Intact as to pain and light pressure in bilateral lower extremities Bed Mobility/Transfers: Rolling independent Supine to sit independent Sit to supine independent Sit to stand independent Stand to sit independent Bed to chair independent Chair to bed independent Gait: Can now tolerate up to 300 feet of level surfaces or wheeled walker with TLSO in place requiring standby assist. No LOB.? No SOB.? Stairs: Able to negotiate up and down six 4-inch steps and four 6-inch steps while holding onto bilateral rails requiring standby assist. Able to maintain 1 hand holding onto a rail requiring the same level of assistance. Balance: Static Sitting: Normal Dynamic Sitting: Normal Static Standing: Fair Dynamic Standing: Fair Assessment: Martina continues to demonstrate functional mobility decline requiring the use of a front wheeled walker for all mobility ADL performance, improving activity tolerance due to pain complaint, generalized weakness, impairment in balance, and increased risk for falls.? She will benefit from functional mobility training, progressive strengthening program time, and balance retraining in order to regain prior level of functional independence. Patient will benefit from shelter facility placement for continued skilled physical therapy services in order to progress mobility level, strength, and balance in preparation for a safe discharge to home. Patient continues to present with clinical signs and symptoms consistent with current/admitting diagnoses that have resulted to mobility limitations, gait instability, generalized weakness, and impairment of motor control as demonstrated by the following impairment level findings: 1.? Pain in low back due to multiple compression fractures 2. Need to wear TLSO for decreased pain levle during mobility performance Impairments are continuing to contribute to the following functional limitations: 1.? Inability to safely ambulate without assistive device 2.? Increase completion time for mobility ADL performance Goals: Goals X1 week 1. Supine-Sit independent MET 2. Sit-Supine independent MET 3. Sit-Stand independent MET 4. Stand-Sit independent MET 5. Bed-Chair independent MET 6. Chair-Bed independent MET 7. Independent gait on level surface without the use of an assistive device for at least 300 feet without report of pain nor dyspnea NOT MET 8. Independent stair negotiation while holding onto bilateral rails for at least 5 steps without report of pain nor dyspnea NOT MET 9. Independent with home exercise program NOT MET 10. Good static and dynamic standing balance/tolerance NOT MET DISCHARGE RECOMMENDATIONS: Patient will benefit from home health PT services in order to progress mobility level using least restrictive assistive ambulatory device, assess home safety, identify additional equipment needs, and establish a functional maintenance program that will increase ability of patient to remain at home.? May continue to be in need of a front wheeled walker for community ambulation upon discharge to home. TREATMENT CODE/TIME: FL Thank you for the opportunity to participate in the care of this patient. Toshia Buckley PT, DPT, CLT [facility] [place], [place]
== END 2020-07-13 15:09 | disposition home health service (06) | DRG 543 ==
LOC: ER 21:07 → MS 21:33
PROVIDERS: Admitting Provider Family Medicine; Emergency Provider Physician Assistant; PCP Nurse Practitioner Family; Visit Provider Family Medicine
DX: M80.08XA Age-related osteoporosis with current pathological fracture, vertebra(e), initial encounter for fracture (principal); I27.82 Chronic pulmonary embolism; K51.90 Ulcerative colitis, unspecified, without complications; F10.10 Alcohol abuse, uncomplicated; Z79.01 Long term (current) use of anticoagulants; F41.9 Anxiety disorder, unspecified; F32.9 Major depressive disorder, single episode, unspecified; E03.9 Hypothyroidism, unspecified; F17.210 Nicotine dependence, cigarettes, uncomplicated; R11.2 Nausea with vomiting, unspecified; T40.2X5A Adverse effect of other opioids, initial encounter; Z20.822 Contact with and (suspected) exposure to COVID-19
CPT/HCPCS: 36415; 80053; 87635; 96365; 96375; 97162; 97167; 97530; 97535; 99285; 72128; 72131; 74019; 81003; 84443; 85025; 99233; 99239; J0131; J1650; J1885; J2405; J3010; J3489

== ENCOUNTER 2020-07-14 19:07 | Emergency (ER) | payer MEDICAID, SELFPAY ==
[2020-07-14] VITALS (38 sets, daily range): BP systolic 89–132; BP diastolic 35–111; PULSE 95–115; RESP 1–33; TEMP 36.6; O2SAT 82–97
--- NOTE | 2020-07-14 19:00 | RT.EKG_ITS ---
APPROVED REPORT Exam: Resting ECG Reason for Exam: [facility] Patient Location: E HR:109 bpm ECG Measurements Heart Rate 109 AXIS MA 130 P 55 QRSd 81 QRS 81 QT 344 T 28 QTc 465 Conclusion Sinus tachycardia...rate> 99 Probable left atrial enlargement...P >50mS, <-0.10mV V1 Nonspecific T abnormalities, anterior leads...T <-0.10mV, V2-V4. 1mm ST depression and T wave inversion in V3. No significant change from previous. No STEMI. I have reviewed and interpreted ECG and agree with software generated interpretation.
--- NOTE | 2020-07-14 19:30 | DI.CT_ITS ---
Exam(s) CT HEAD WO EXAM: CT HEAD WO CLINICAL HISTORY: AMS, Drug overdose,. TECHNIQUE: Imaging Protocol: Axial computed tomography images with coronal and sagittal reformatted images were created and reviewed COMPARISON: CT CT HEAD WO from 02/10/2020 FINDINGS: The ventricular system is normal in appearance. No evidence of acute intracranial hemorrhage, mass effect, or midline shift. The orbital structures are unremarkable. The temporal bone structures appear intact. Calvarium: Normal. Visualized Paranasal sinuses/Mastoids: Mastoid air cells are clear. There is mucoperiosteal thickeni ng at a few sites in the paranasal sinuses and there is a small fluid collection and sphenoid sinus, nonspecific. IMPRESSION: No evidence of acute intracranial process. RADIATION DOSE DELIVERED: 740.61mGy.cm Total DLP 740.61mGy.cm Total DLP DATA REPOSITORY: All CT scans at this facility are submitted to the National Radiology Data Registry (NRDR) Dose Index Registry (DIR) with the [employer] (A[employer]). RADIATION OPTIMIZATION: All CT scans at this facility use at least one of these dose optimization te chniques: automated exposure control; mA and/or kV adjustment per patient size (includes targeted exa ms where dose is matched to clinical indication); or iterative reconstruction.
--- NOTE | 2020-07-14 19:33 | ED.GENADUL_ITS ---
Discharge Plan Disposition Patient Disposition: OTHER Condition: Critical Discharge Details Clinical Impression: Acute hyperkalemia, VLADIMIR (acute kidney injury), AMS (altered mental status), Non-ST elevation IL (NSTEMI), Rhabdomyolysis, Pneumonia Primary Care Provider: Genaro Bonilla ED Provider: Tanya Hardin Home Meds and New Rx's Prescriptions: No Action folic acid 1 mg tablet 1 mg PO DAILY RF: 0 tizanidine 4 mg tablet 4 mg PO Q8H PRNRF: 0 pregabalin 150 mg capsule 150 mg PO BID RF: 0 cyclobenzaprine 10 mg Tablet 5 mg PO TID PRN PRN (Reason: back spasm) Qty: 60 RF: 0 fentanyl [Duragesic] 50 mcg/hr Patch 72 Hour 50 mcg transdermal Q72H Qty: 20 RF: 0 calcium carbonate-vitamin D3 [Calcium 600 + D(3)] 600 mg(1,500mg) -200 unit Tablet 2 tab PO BID Qty: 60 RF: 0 tramadol 50 mg Tablet 50 mg PO Q6H PRN PRNQty: 20 RF: 0 bisacodyl 10 mg Suppository 10 mg OH DAILY PRN PRNQty: 10 RF: 0 docusate sodium [Colace] 100 mg Capsule 100 mg PO BID Qty: 30 RF: 0 escitalopram oxalate [Lexapro] 20 mg Tablet 20 mg PO DAILY RF: 0 aripiprazole [Abilify] 5 mg Tablet 5 mg PO DAILY RF: 0 omeprazole 20 mg capsule,delayed release(DR/EC) 20 mg PO DAILY RF: 0 enoxaparin 80 mg/0.8 mL Syringe 80 mg subcut Q12H Qty: 60 RF: 0 levothyroxine 100 mcg tablet 100 mcg PO DAILY RF: 0 thiamine mononitrate (vit B1) [Vitamin B-1 (mononitrate)] 100 mg Tablet 100 mg PO DAILY Qty: 30 RF: 0 naltrexone 50 mg tablet 50 mg PO DAILY Qty: 30 RF: 2 nicotine [Nicoderm CQ] 21 mg/24 hr patch 24 hour 1 patch transdermal DAILY Qty: 28 RF: 2 cyanocobalamin (vitamin B-12) [Vitamin B-12] 1,000 mcg tablet 1,000 mcg PO DAILY Qty: 90 RF: 3 Medical Decision Making <Tanya Hardin - Last Filed: 07/15/20 01:44> 55-year-old female presents to the ER via EMS with altered mental status and overdose. Patient was recently discharged from the hospital yesterday. She was noted to be in bed for approximately 24 hours was found unresponsive by family this evening. She did have a 50 mcg f[address]anyl patch in place without removed on scene prior to arrival. Patient began to be more arousable after fentanyl patch removal. She was 88% on room air initially. BGL is 146 per EMS. Upon initial exam she is urine soaked, awake, pupils are 2 mm bilaterally and sluggish, she is complaining of pain. She does have a recent history of some vertebral fractures. She does have a bottle of hydrocodone which was filled on July 04 with 28 tablets to be empty. She also has a bottle of tizanidine which was filled on July 04 4 mg #50 with only 3 left. Patient states that she gives herself her own medications. 1936: RT is at bedside at this time we will try decreasing the nonrebreather 10 L down. At this time patient is maintaining her airway. Labs ordered urinalysis urine drug screen. We will continue to observe closely. CT head will be ordered to rule out CVA. Patient was placed on 4 L nasal cannula by RT that has dropped down to 86%. Patient is still responsive to verbal. Patient placed on a simple mask at 6 L.. 2027: Patient has received 0.2 mg Narcan, immediate nausea vomiting patient was placed onto her right side. 4 mg Zofran ordered. 2139: Spoke with our local hospitalist on-call, here at [facility] Dr. Dominguez regarding patient case and details he was able to review the patient's chart and labs at this time he does recommend transfer to a tertiary facility. Questionable NSTEMI, rhabdomyolysis, possible upper GI bleed altered mental status and polysubstance overdose, differential also includes pneumonia 2146: Spoke with [facility] transfer center regarding patient case and details of transfer request. They will call back there is concern for bed capacity at this time. Patient is currently in diagnostic imaging. Prior to transfer she was 96% on [address] HEAD WO 02/10/2020 04:22 FINDINGS: Brain: Moderate cerebral atrophy. No edema or hemorrhage. Cerebral ventricles: No ventriculomegaly. Bones/joints: No acute fracture. Paranasal sinuses: Scattered mild sinus disease with an air-fluid level in the sphenoid sinus similar to prior. Mastoid air cells: No mastoid effusion. Soft tissues: No suspicious lesions. IMPRESSION: 1. No acute intracranial findings. 2. Sinus disease. 2215: Patient is back from diagnostic imaging, she is now having diarrhea. She is alert and oriented she does admit to using cocaine at home I did discuss plan of care for transfer she is in agreement with plan. At this time I am awaiting callback from [facility]. 00 22: Dr. Meng ER attending spoke with [facility] Dr. SLAUGHTER at the same time I was discussing patient case with [facility]. He will call us back 0033: Spoke with critical care team Dr. Bran Henderson at [facility] discussed patient case in detail accepting physician AL at [facility]. N o bed assignment at this time awaiting bed availability. 0100: Received a bed assignment from [facility] staff at [place] [id number] phone number to call report is [phone], they request fax of facesheet and Covid results. Oh 1:30 AM: At this time transport arranged by [facility], to [facility], at this time patient is hemodynamically stable. I spent greater than 35 minutes addressing this patient's acute life threatening illness. This time was spent engaged in actions directly related to the patient's care. Failure ti initiate these interventions would have likely resulted in clinically significant or life threatening deterioration in the patients condition. <Aris Meng, DO - Last Filed: 07/15/20 01:32> Patient was seen and assessed in conjunction with Nadia Elnea. Please refer to HPI, physical exam assessment and plan. Patient presents for altered mental status with hypoxemia. Recently discharged, on multiple pain medications and pain patches, in conjunction with a back brace for recent spinal fractures. Patient is not gotten up or moved much since being at home. Upon patient arrival she was hypoxic, started on 10 L of oxygen which brought her up to the low 90s. Patient's pupils are pinpoint, she demonstrates crackles in the lung tapia. She appears neurologically intact but somewhat out of it. No focal neurologic deficits, no pitting edema. Differential includes iatrogenic pharmacologic reason for her altered mental status and hypoxemia but also concerning for pneumonia, atelectasis, potential worsening of her chronic PE especially since she is taking her own medications at home including her Lovenox. Recommend CT imaging, Narcan, close monitoring and reassessment. I independently performed a history and physical examination of the patient and discussed the management with the midlevel provider. I agree with the current plan of management at the time of signing. 11:29 PM Patient's laboratory work-up has returned, troponin is elevated however EKG shows no evidence of STEMI. Patient UDS is returned and is positive for cocaine. CT scan shows evidence of pneumonia and infiltrate, potentially aspiration. Will start her on Vanco Zosyn and doxy. Symptoms appear clinically inconsistent with a dissection at this time. CPK elevated at 1700. Renal function notably worsening with a creatinine of 2.1. Patient's multiple medical comorbidities and current problem she will benefit from transfer. Potassium elevated at 5.5. tanya will give calcium, albuterol, insulin and dextrose. Patient remains hemodynamically stable here, oxygenation improving. HPI <Tanya Hardin - Last Filed: 07/15/20 01:44> General Mode of arrival: EMS . Date/Time Provider Initiated Documentation: 07/14/20 19:26 . Limitations to Documentation: altered mental status . Information obtained by: patient and EMS . HPI Narrative: 55-year-old female presents to the ER via EMS with altered mental status and overdose. Patient was recently discharged from the hospital yesterday. She was noted to be in bed for approximately 24 hours was found unresponsive by family this evening. She did have a 50 mcg f[address] patch in place without removed on scene prior to arrival. Patient began to be more arousable after fentanyl patch removal. She was 88% on room air initially. BGL is 146 per EMS. Upon initial exam she is urine soaked, awake, pupils are 2 mm bilaterally and sluggish, she is complaining of pain. She does have a recent history of some vertebral fractures. She does have a bottle of hydrocodone which was filled on July 04 with 28 tablets to be empty. She also has a bottle of tizanidine which was filled on July 04 4 mg #50 with only 3 left. Patient states that she gives herself her own medications. Related Data Home Medications Medication Instructions Recorded Confirmed aripiprazole [Krissy] 5 mg PO DAILY 06/23/18 07/14/20 escitalopram oxalate [Lexapro] 20 mg PO DAILY 06/23/18 07/14/20 omeprazole 20 mg PO DAILY 08/12/19 07/14/20 enoxaparin 80 mg SUBCUT Q12H #60 ml 08/13/19 07/14/20 folic acid 1 mg PO DAILY 12/24/19 07/14/20 levothyroxine 100 mcg PO DAILY 03/14/20 07/14/20 cyanocobalamin (vitamin B-12) 1,000 mcg PO DAILY #90 tab 03/25/20 07/14/20 [Vitamin B-12] naltrexone 50 mg PO DAILY #30 tab 03/25/20 07/14/20 nicotine [Nicoderm CQ] 1 patch TRANSDERMAL DAILY #28 ea 03/25/20 07/14/20 thiamine mononitrate (vit B1) 100 mg PO DAILY #30 tab 03/25/20 07/10/20 [Vitamin B-1 (mononitrate)] pregabalin 150 mg PO BID 07/11/20 07/14/20 tizanidine 4 mg PO Q8H PRN 07/11/20 07/14/20 bisacodyl 10 mg OH DAILY PRN PRN #10 ea 07/13/20 07/14/20 calcium carbonate-vitamin D3 2 tab PO BID #60 tab 07/13/20 [Calcium 600 + D(3)] cyclobenzaprine 5 mg PO TID PRN PRN #60 tab 07/13/20 07/14/20 docusate sodium [Colace] 100 mg PO BID #30 cap 07/13/20 07/14/20 fentanyl [Duragesic] 50 mcg TRANSDERMAL Q72H #20 ea 07/13/20 07/14/20 tramadol 50 mg PO Q6H PRN PRN #20 tab 07/13/20 07/14/20 Previous Rx's Medication Instructions Recorded enoxaparin 80 mg SUBCUT Q12H #60 ml 08/13/19 cyanocobalamin (vitamin B-12) 1,000 mcg PO DAILY #90 tab 03/25/20 [Vitamin B-12] naltrexone 50 mg PO DAILY #30 tab 03/25/20 nicotine [Nicoderm CQ] 1 patch TRANSDERMAL DAILY #28 ea 03/25/20 thiamine mononitrate (vit B1) 100 mg PO DAILY #30 tab 03/25/20 [Vitamin B-1 (mononitrate)] bisacodyl 10 mg OH DAILY PRN PRN #10 ea 07/13/20 calcium carbonate-vitamin D3 2 tab PO BID #60 tab 07/13/20 [Calcium 600 + D(3)] cyclobenzaprine 5 mg PO TID PRN PRN #60 tab 07/13/20 docusate sodium [Colace] 100 mg PO BID #30 cap 07/13/20 fentanyl [Duragesic] 50 mcg TRANSDERMAL Q72H #20 ea 07/13/20 tramadol 50 mg PO Q6H PRN PRN #20 tab 07/13/20 Allergies Allergy/AdvReac Type Severity Reaction Status Date / Time Sulfa (Sulfonamide AdvReac Intermediate headache/ Unverified 07/14/20 20:05 Antibiotics) itching General Stated Complaint: AMS/LOC ABIODUN: 2 Review of Systems <Tanya Hardin - Last Filed: 07/15/20 01:44> Unobtainable due to mental condition Neurologic Neurologic: Reports as per HPI and Reports confusion Psychiatric Psychiatric: Reports confusion PFSH <Tanya Hardin - Last Filed: 07/15/20 01:44> Medical History Alcohol abuse Anxiety ASCUS with positive high risk HPV Depression Hypothyroidism Pulmonary emboli Ulcerative colitis Surgical History Hx of section Hx of colonoscopy Family History Father Heart disease Paternal Grandmother Cancer Maternal Grandmother Cancer Social History Smoking/Tobacco Use Status: Current every day Tobacco Type: cigarettes Years smoked: 46 Tobacco: How many years used: 46 Smoking risk assessment performed?: Yes Alcohol Intake: former Drug use: Daily Substance use type: marijuana Current gender identity: female Do you feel safe at home: Yes Do you feel safe in your relationship?: Yes Exam <Tanya Hardin - Last Filed: 07/15/20 01:44> Const General: acute distress moderate, anxious, disheveled and intoxicated appearing Nutritional Appearance: well nourished Orientation: confused Limitations: altered mental status [facility] Head: no palpable skull fracture, normocephalic, cyanosis of lips/distal nose (Ashen) and no raccoon eyes Ears: external ears normal General nose exam: external nose normal and nares normal Mouth: mucous membranes dry, No mouth trauma and muffled voice Teeth and gingiva: poor dentition Throat: posterior oropharynx normal Eyes Pupils: PERRL, pinpoint (Sluggish) bilaterally and pupil size (2-3mm) bilaterally EOM: EOM intact bilaterally Chest Chest: normal inspection of the chest and normal palpation of entire chest wall Resp Effort & Inspection: cough, decreased respiratory effort, not labored, no nasal flaring and no retractions Auscultation: rhonchi left upper, right upper and right lower and wheezes e xpiratory wheezes and left upper Cardio Jugular venous pressure: no JVD Palpation: normal PMI Rate: tachycardic (109) Heart Sounds: S1 normal and S2 normal Pulses: radial pulses present and dorsalis pedis present GI Inspection: no abdominal wall ecchymosis Palpation: soft Auscultation: hypoactive bowel sounds Back/Spine/Pelvis Back: No ecchymosis, back tenderness (Patient is wearing a back brace, does have a history of vertebral lumbar ) and other Pelvis: no pain with anterior-posterior compression Neuro General: oriented Patient Orientation: Confused, no focal motor deficits and u nable to assess gait Cranial Nerves: EOM intact bilaterally, tongue midline, gag reflex normal and able to elevate shoulders bilaterally Cognition: abnormal cognition Speech: abnormal speech garbled and slurred Motor: no pronator drift and no fasciculations Sensory Exam: normal double simultaneous stimulation Pupils: Pinpoint: right, left and bilateral Course <Tanya Cliffordton - Last Filed: 07/15/20 01:44> Vital Signs Vital signs: Vital Signs Temperature 36.6 C 07/14/20 19:09 Pulse 110 H 07/14/20 19:09 Respiratory Rate 26 H 07/14/20 19:09 Blood Pressure 106/35 L 07/14/20 19:09 Pulse Oximetry 89 L 07/14/20 19:09 Temperature 36.6 C 07/14/20 19:09 Temperature Source Skin 07/14/20 19:09 Pulse 110 H 07/14/20 19:09 Respiratory Rate 26 H 07/14/20 19:09 Blood Pressure 106/35 L 07/14/20 19:09 Blood Pressure Position Right Lateral 07/14/20 19:09 Pulse Oximetry 89 L 07/14/20 19:09 Oxygen Delivery Method Non-Rebreather 07/14/20 19:09 Oxygen Flow Rate 15 07/14/20 19:09
[2020-07-14 19:56] LABS: Abs Immature Grans 0.08 10^3/uL (0.0-0.06); Absolute Basophil Count 0.03 10^3/uL (0.0-0.2); Absolute Lymphocyte Count 0.45 10^3/uL (1.2-3.4); Absolute Monocyte Count 0.43 10^3/uL (0.1-0.8); Basophils % 0.4; HCT 47.9 % (36.0-46.0); HGB 15.5 g/dL (11.2-15.7); Lymphocytes % 5.4; MCH 32.9 pg (27.0-33.0); MCHC 32.4 % (32.0-36.0); MCV 101.7 fL (80-95); MPV 9.5 fL (8.0-11.0); Monocytes % 5.2; Nucleated RBC 0 %; Platelet Count 256 10^3/uL (130-400); RBC 4.71 10^6/uL (3.93-5.22); RDW 13.7 % (11.7-14.6); RDW-SD 51.8 fL; WBC 8.29 10^3/uL (4.4-10.8)
--- NOTE | 2020-07-14 20:07 | DI.CT_ITS ---
Exam(s) CT CHEST WO EXAM: CT CHEST WO CLINICAL HISTORY: Hx PE, AMS, R/O Effusion, Pna TECHNIQUE: COMPARISON: CT CT ABDOMEN PELVIS W from 03/23/[address] THORACIC LUMBAR SPINE WO from 07/10/2020 FINDINGS: Noncontrast CT examination of the chest was performed. Images obtained through the upper abdomen zofia w unremarkable appearance of visualized portions of liver, spleen, pancreas, adrenals, and kidneys. No gross mediastinal or hilar adenopathy. No gross thoracic aortic aneurysm. No pleural effusion. There are patchy areas of ground-glass and consolidative opacity in the right l brandon highly suspicious for pneumonia. Mild underlying pulmonary scarring noted There are multiple vertebral compression fractures, no change from spine CT of 07/10/2020. IMPRESSION: Findings highly suggestive of right-sided pneumonia involving all 3 pulmonary lobes. Appropriate fol low-up studies requested. RADIATION DOSE DELIVERED: 699.31mGy.cm Total DLP RADIATION OPTIMIZATION: All CT scans at this facility use at least one of these dose optimization te chniques: automated exposure control; mA and/or kV adjustment per patient size (includes targeted exa ms where dose is matched to clinical indication); or iterative reconstruction.
[2020-07-14 20:11] LABS: BE (Venous) 1 mmol/L (-2-3); HCO3 (Venous) 27 mmol/L (23-28); O2 Sat (Venous) 79 %; TCO2 (Venous) 24 mmol/L (24-29); pCO2 (Venous) 54 mmHg (41-51); pH (Venous) 7.31 (7.31-7.41); pO2 (Venous) 44 mmHg
[2020-07-14] MEDS: Omnipaque 350 MG/ML 100 ML BTL 75 ML IJ (20:14)
[2020-07-14] MEDS: Normal Saline - Diluent 50 ML VIAL IV (20:15)
[2020-07-14] MEDS: Normal Saline 1,000 ML 150 ML IV (20:15)
[2020-07-14 20:18] LABS: Bilirubin Negative (Negative); Blood Negative (Negative); Clarity Clear (Clear); Glucose Negative (Negative); Ketones Negative (Negative); Leukocyte Esterase Negative (Negative); Nitrite Negative (Negative); Urobilinogen 0.2 EU/dL (Up TO 0.2)
[2020-07-14] MEDS: Naloxone 0.4 MG/ML VIAL 0.2 MG IVP (20:22)
[2020-07-14 20:30] LABS: Salicylate 4.9 mg/dL (<2.8)
[2020-07-14 20:41] LABS: ALT 217 U/L (14-59); AST 346 U/L (15-37); Albumin 3.3 g/dL (3.4-5.0); Alkaline Phosphatase 114 U/L (46-116); BUN 15 mg/dL (7-18); Bilirubin, Total 0.6 mg/dL (0.2-1.0); CREATININE 2.1 mg/dL (0.55-1.02); Chloride 101 mmol/L (98-107); Estimated GFR 23.79 (mL/min/1.73m2); Glucose 125 mg/dL (74-106); Magnesium 2.3 mg/dL (1.8-2.4); Potassium 5.5 mmol/L (3.5-5.1); Sodium 141 mmol/L (136-145); Total Protein 7.5 g/dL (6.4-8.2)
[2020-07-14 20:42] LABS: *AMPHETAMINES SCREEN URINE Negative (Negative); *BARBITURATES SCREEN URINE Negative (Negative); *BENZODIAZEPINES SCREEN URINE Positive (Negative); Cannabinoids THC Positive (Negative); Cocaine Screen,Urine Positive (Negative); METHADONE URINE SCREEN Negative (Negative); OPIATES URINE SCREEN Positive (Negative)
[2020-07-14] MEDS: Ondansetron 4 MG/2 ML VIAL (20:42)
[2020-07-14 20:45] LABS: Tricyclic Antidepressants Negative (Negative)
[2020-07-14 20:49] LABS: Acetaminophen < 2 ug/mL (10-30)
[2020-07-14 20:55] LABS: ETHANOL BLOOD < 3.0 mg/dL (<3)
[2020-07-14 20:56] LABS: Troponin I 0.11 ng/mL (<0.06)
[2020-07-14 21:12] LABS: Creatine Kinase 1785 U/L (26-192)
[2020-07-14 21:37] LABS: INR 1.1 (0.9-1.1)
--- NOTE | 2020-07-14 22:06 | DI.VRAD_ITS ---
PROCEDURE INFORMATION: Exam: CT Head Without Contrast Exam date and time: 07/14/2020 19:39 Age: 65 years old Clinical indication: Altered mental status/memory loss; Patient HX: AMS, drug overdose TECHNIQUE: Imaging protocol: Computed tomography of the head without contrast. COMPARISON: CT HEAD WO 02/10/2020 04:22 FINDINGS: Brain: Moderate cerebral atrophy. No edema or hemorrhage. Cerebral ventricles: No ventriculomegaly. Bones/joints: No acute fracture. Paranasal sinuses: Scattered mild sinus disease with an air-fluid level in the sphenoid sinus similar to prior. Mastoid air cells: No mastoid effusion. Soft tissues: No suspicious lesions. IMPRESSION: 1. No acute intracranial findings. 2. Sinus disease. Dictated and Authenticated by: Sanna Abarca MD. Ordering:BRANDON Martínez MD
[2020-07-14] MEDS: Albuterol/Ipratropium 3 ML UPD VIAL UPD (22:44)
--- NOTE | 2020-07-14 22:45 | RT.EKG_ITS ---
APPROVED REPORT Exam: Resting ECG Reason for Exam: elevated troponin Patient Location: E HR:99 bpm ECG Measurements Heart Rate 99 AXIS MD 121 P 52 QRSd 75 QRS 74 QT 362 T 33 QTc 466 Conclusion Sinus rhythm...normal P axis, V-rate 60- 99 Nonspecific T abnormalities, anterior leads...T <-0.10mV, V2-V4 Physician: No stemi, inverted t waves in V2/V3, no stemi, unchanged from [facility]
--- NOTE | 2020-07-14 22:50 | DI.VRAD_ITS ---
PROCEDURE INFORMATION: Exam: CT Chest Without Contrast; Diagnostic Exam date and time: 07/14/2020 9:47 PM Age: 65 years old Clinical indication: Patient HX: AMS, R/O effusion, pna; Additional info: HX pe TECHNIQUE: Imaging protocol: Diagnostic computed tomography of the chest without contrast. 3D rendering (Not supervised by radiologist): MIP and/or 3D reconstructed images were created by the technologist. COMPARISON: CT CHEST PE ABD PELVIS W 03/14/2020 6:55 PM FINDINGS: Lungs: Patchy reticulonodular pulmonary opacities are seen throughout the right upper, right middle and right lower lobes with additional areas of peripheral pulmonary consolidation. Minimal linear atelectasis or scarring within the left lower lobe, similar when compared to the prior study. The left upper lobe, lingula and left lower lobe are otherwise well aerated. Pleural spaces: No pleural effusion. No pneumothorax. Heart: The heart is mildly enlarged. No pericardial effusion. Mediastinal space: The esophagus is mildly dilated and patulous suggesting esophageal dysmotility. Tiny hiatal hernia. Aorta: The thoracic aorta is normal in caliber without aneurysm. Lymph nodes: Increased number of rounded small lymph nodes are seen within the mediastinum, measuring up to 7 x 12 mm. These are slightly increased in size from the prior study. Spleen: The imaged portions of the spleen are normal appearance. Adrenal glands: The bilateral adrenal glands are normal appearance. Kidneys and ureters: The bilateral superior renal poles are normal appearance. Stomach and bowel: Mild wall thickening within the gastric folds. The liver is mildly enlarged. Bones/joints: A chronic wedge compression fracture within the T1 vertebral body is seen. A chronic T12 compression fracture is seen, unchanged. A new, age-indeterminate compression fracture is seen within the T9 vertebral body resulting in 60-70% vertebral body height loss. No retropulsion. An age-indeterminate, likely chronic, fracture is seen within the superior L2 endplate. This was not imaged on the prior study. Overall, this has a chronic appearance, however. Soft tissues: Unremarkable. IMPRESSION: 1. Patchy reticulonodular pulmonary opacities throughout the right upper, right middle and right lower lobes, most consistent with an infectious or possibly inflammatory process. No pulmonary infiltrate involving the left lung. 2. Increased number of small rounded lymph nodes are seen throughout the mediastinum, which is slightly increased in size from the prior study, and are likely reactive. 3. Mild gastroesophagitis. Tiny hiatal hernia. 4. Age-indeterminate T9 compression fracture, new from 03/14/2020. Dictated and Authenticated by: Minoo Rasmussen MD. Ordering:BRANDON Martínez MD
[2020-07-14] MEDS: Insulin REGULAR-Human 100 UNITS/ML UNIT SC (23:02)
[2020-07-14 23:18] LABS: Troponin I 0.37 ng/mL (<0.06)
[2020-07-14] MEDS: PIPERACILLIN/TAZO 3.375 GM in Normal Saline 50 ML IVPB (23:54)
[2020-07-15] VITALS (66 sets, daily range): BP systolic 70–123; BP diastolic 11–94; PULSE 74–184; RESP 12–36; TEMP 36.6; O2SAT 78–94
[2020-07-15] MEDS: DOXYCYCLINE 100 MG in Normal Saline 100 ML IVPB (00:49)
[2020-07-15] MEDS: Aspirin 81 MG CHEW 162 MG CH (00:57)
[2020-07-15] MEDS: Dextrose 50%-Water 25 GM/50 ML SYR IVP (00:58)
[2020-07-15 02:02] LABS: COVID-19 PCR Negative (Negative)
[2020-07-15] MEDS: LORazepam 2 MG/ML VIAL 0.5 MG IVP (02:05)
[2020-07-15] MEDS: Normal Saline 1,000 ML 1000 ML IV (02:40)
[2020-07-15] MEDS: VANCOMYCIN 1,500 MG in Normal Saline 500 ML 333.3333 MG IVPB (02:45)
[2020-07-15 03:28] LABS: Anion Gap 12.7 mmol/L (3-11); BUN 20 mg/dL (7-18); CO2 25.3 mmol/L (21.0-32.0); CREATININE 1.7 mg/dL (0.55-1.02); Calcium 8.4 mg/dL (8.5-10.1); Chloride 105 mmol/L (98-107); Estimated GFR 30.36 (mL/min/1.73m2); Glucose 113 mg/dL (74-106); Potassium 4.4 mmol/L (3.5-5.1); Sodium 143 mmol/L (136-145)
[2020-07-15] MEDS: LORazepam 2 MG/ML VIAL (05:01)
== END 2020-07-15 07:29 | disposition other institution (70) ==
PROVIDERS: Student in an Organized Health Care Education/Training Program; Emergency Provider Registered Nurse Emergency; PCP Nurse Practitioner Family
DX: E87.5 Hyperkalemia (principal); N17.9 Acute kidney failure, unspecified; R41.82 Altered mental status, unspecified; I21.4 Non-ST elevation (NSTEMI) myocardial infarction; M62.82 Rhabdomyolysis; J18.9 Pneumonia, unspecified organism
CPT/HCPCS: 36415; 71250; 80048; 80053; 80307; 82550; 82805; 86850; 86900; 86901; 87635; 93005; 96361; 96365; 96367; 96372; 96375; 96376; 99291; 70450; 80320; 80329; 81003; 83735; 84484; 85025; 85610; 86870; 93010; 94640; J0610; J2060; J2310; J2405; J2543; J3490; J7620

== ENCOUNTER 2020-09-18 02:44 | Outpatient (CLI) | payer MEDICAID, SELFPAY ==
--- NOTE | 2020-09-18 | DI.DEXA_ITS ---
Exam(s) XR DEXA BONE DENSITY W/WO HEIDY EXAM: XR DEXA BONE DENSITY W/WO HEIDY CLINICAL HISTORY: OSTEOPENIA, WITH HIGH FX RISK,M85.80, SCREENING FOR OSTEOPOROSIS,Z13.820 TECHNIQUE: Routine DEXA evaluation of the lumbar spine, hip, or forearm. COMPARISON: CR XR LUMBAR SPINE COMPLETE from 07/02/2020 FINDINGS: Performed on a Hologic unit. Lateral image: Compression fractures of L2 and L3 again noted, as seen on plain films of 07/02/2020. Lumbar Spine total T-score: -2.3 Hip total T-score:-2.0 Independent reading at the femoral neck yields a T-score of -3.1 Forearm total T-score: IMPRESSION: Bone mineral density measures in the osteoporosis range. Fracture risk is high. Note: Any spine fracture indicates 5x risk for subsequent spine fracture and 2x risk for subsequent h ip fracture. World Health Organization criteria for BMD interpretation classify patients: Normal...... T- Score at or above -1.0 Osteopenic... T- Score between -1.0 and -2.5 Osteoporosis... T-Score at or below -2.5
== END 2020-09-18 03:04 ==
PROVIDERS: PCP Nurse Practitioner Family; Visit Provider Nurse Practitioner
DX: M85.88 Other specified disorders of bone density and structure, other site; M80.08XD Age-related osteoporosis with current pathological fracture, vertebra(e), subsequent encounter for fracture with routine healing; M48.56XD Collapsed vertebra, not elsewhere classified, lumbar region, subsequent encounter for fracture with routine healing; Z13.820 Encounter for screening for osteoporosis
CPT/HCPCS: 77080

== ENCOUNTER 2020-09-20 15:09 | Outpatient (REF) | payer MEDICAID, SELFPAY ==
[2020-09-20 19:27] LABS: HCT 45.7 % (36.0-46.0); HGB 14.8 g/dL (11.2-15.7); MCH 32.2 pg (27.0-33.0); MCHC 32.4 % (32.0-36.0); MCV 99.6 fL (80-95); MPV 9.5 fL (8.0-11.0); Platelet Count 341 10^3/uL (130-400); RBC 4.59 10^6/uL (3.93-5.22); RDW 16.9 % (11.7-14.6); RDW-SD 62.5 fL; WBC 7.65 10^3/uL (4.4-10.8)
[2020-09-20 19:52] LABS: ALT 17 U/L (14-59); AST 13 U/L (15-37); Albumin 3.9 g/dL (3.4-5.0); Alkaline Phosphatase 86 U/L (46-116); Anion Gap 11.9 mmol/L (3-11); BUN 8 mg/dL (7-18); Bilirubin, Total 0.4 mg/dL (0.2-1.0); CO2 26.1 mmol/L (21.0-32.0); CREATININE 0.9 mg/dL (0.55-1.02); Calcium 9.6 mg/dL (8.5-10.1); Calculated LDL 155 mg/dL (<100); Chloride 103 mmol/L (98-107); Cholesterol 245 mg/dL (<200); Glucose 81 mg/dL (74-106); HDL Cholesterol 68 mg/dL (40-60); Potassium 4.7 mmol/L (3.5-5.1); Sodium 141 mmol/L (136-145); Total Protein 6.8 g/dL (6.4-8.2); Triglyceride 112 mg/dL (<150)
== END 2020-09-20 15:10 | disposition home or self-care (01) ==
LOC: NCHCN 15:09
PROVIDERS: PCP Nurse Practitioner Family; Visit Provider Nurse Practitioner
DX: E03.9 Hypothyroidism, unspecified (principal); D75.1 Secondary polycythemia; R73.9 Hyperglycemia, unspecified; M81.0 Age-related osteoporosis without current pathological fracture; Z79.01 Long term (current) use of anticoagulants
CPT/HCPCS: 80053; 80061; 85027; 84443

== ENCOUNTER 2020-10-12 03:43 | Outpatient (CLI) | payer MEDICAID, SELFPAY ==
--- NOTE | 2020-10-12 | DI.MAMMO_ITS ---
Exam(s) MAMMO SCREENING EXAM: MAMMO SCREENING CLINICAL HISTORY: SCREENING, Z12.39 TECHNIQUE: Bilateral full field digital CC and MLO mammographic images were obtained with 3D tomosyn thesis and utilizing computer aided detection (CAD). COMPARISON: Available for comparison. FINDINGS: Masses/Architectural Distortion: Since the prior examination from 2019, there are now 3 biopsy clips in the left breast. There is a new ovoid 8 mm nodule in the upper inner quadrant of the left breast which contains a biopsy clip. The nodule is not present on the prior examination. The retroareolar nodule in the left breast now contains a biopsy clip. No other new nodules are present. Microcalcifications: No suspicious pleomorphic-type are seen. Skin Thickening/Nipple Retraction: None. IMPRESSION: 1. Interval placement of 3 biopsy clips in the left breast since the prior examination from 2019. If there are mammograms in the interim, they may be submitted and an addendum will be issued at that ti me. 2. New 8 mm nodule in the upper inner quadrant of the left breast. There does appear to be a biopsy clip within the nodule. Please correlate with patient's surgical procedures and prior films. Ultras ound may be considered if no history of mass or biopsy in this area is obtained. 3. Additional surgical and clinical history is requested on this patient prior to categorizing this m ammogram. BI-RADS Category 0 - Assessment Incomplete: Need additional imaging evaluation. Breast Density - Category B - Scattered areas of fibroglandular density Breast density category C or D implies that the patient has dense breast tissue. Dense breast tissue is very common and is not abnormal but dense breast tissue can make it harder to find cancer on a ma mmogram. Also, dense breast tissue may increase their breast cancer risk. This information about the result of the mammogram report was provided to the patient to raise their awareness. Use this report when you speak with the patient about their risks for breast cancer, which includes their family hist ory. At that time, you may recommend for more screening tests (Ultrasound or MRI) as they might be us eful based on their risk. A negative radiographic report should not delay biopsy if a dominant or clinically suspicious mass is present. Up to ten percent of cancers are not identified on mammography. A negative report may reinforce clinical impression. Adenosis and dense breasts may obscure an underlying neoplasm. False positive reports average 6 to 10%. Patient will receive a letter notifying them of these results.
== END 2020-10-12 04:03 ==
PROVIDERS: PCP Nurse Practitioner; Visit Provider Nurse Practitioner
DX: Z12.31 Encounter for screening mammogram for malignant neoplasm of breast (principal); R92.8 Other abnormal and inconclusive findings on diagnostic imaging of breast; N63.22 Unspecified lump in the left breast, upper inner quadrant
CPT/HCPCS: 77063; 77067

== ENCOUNTER 2020-10-12 03:52 | Outpatient (CLI) | payer MEDICAID, SELFPAY ==
--- NOTE | 2020-10-12 06:30 | DI.RAD_ITS ---
Exam(s) XR CHEST 2V PA LATERAL EXAM: XR CHEST 2V PA LATERAL CLINICAL HISTORY: PREOP,CAD,CHF,PNEUMONIA,PLEURITIC CHEST PAIN, LUNG MASS,CHRONIC PE,I50.9, TECHNIQUE: 2D digital imaging was performed. COMPARISON: CR XR CHEST 2V PA LATERAL from 09/07/[address] CHEST WO from 07/14/[address] CHEST WO from 07/14/2020 FINDINGS: MEDIASTINUM: Normal. HEART: Normal. PULMONARY VASCULATURE: Normal. LUNGS: There is a 2.4 cm opacity in the right lung base suspicious for pulmonary mass. The lungs elina ear hyperinflated with flattened diaphragms suggesting underlying COPD. PLEURAL SPACE: No pleural effusion or pneumothorax. BONE:Old thoracic compression fracture deformities are noted. OTHER FINDINGS:Normal. IMPRESSION: 2.4 cm spiculated mass in the right lung base. CT scan of the chest or PET CT should be considered f or further evaluation. DATA REPOSITORY: RADIATION DOSE DELIVERED:
== END 2020-10-12 04:12 ==
PROVIDERS: PCP Nurse Practitioner; Visit Provider Surgery
DX: Z01.818 Encounter for other preprocedural examination (principal); I25.10 Atherosclerotic heart disease of native coronary artery without angina pectoris; I27.82 Chronic pulmonary embolism; I50.9 Heart failure, unspecified; J18.9 Pneumonia, unspecified organism; R91.8 Other nonspecific abnormal finding of lung field; F12.10 Cannabis abuse, uncomplicated
CPT/HCPCS: 71046

== ENCOUNTER 2020-10-16 05:05 | Outpatient (CLI) | payer MEDICAID, SELFPAY ==
[2020-10-16 10:37] LABS: Abs Immature Grans 0.03 10^3/uL (0.0-0.06); Absolute Basophil Count 0.02 10^3/uL (0.0-0.2); Absolute Eosinophil Count 0.04 10^3/uL (0.0-0.7); Absolute Lymphocyte Count 1.45 10^3/uL (1.2-3.4); Absolute Monocyte Count 0.45 10^3/uL (0.1-0.8); Absolute Neutrophil Count 5.24 10^3/uL (1.2-6.7); Basophils % 0.3; Eosinophils % 0.6; HCT 48.1 % (36.0-46.0); HGB 15.6 g/dL (11.2-15.7); Immature Grans % 0.4; Lymphocytes % 20.1; MCH 33.5 pg (27.0-33.0); MCHC 32.4 % (32.0-36.0); MCV 103.2 fL (80-95); MPV 9.1 fL (8.0-11.0); Monocytes % 6.2; Neutrophils % 72.4; Nucleated RBC 0 %; Platelet Count 276 10^3/uL (130-400); RBC 4.66 10^6/uL (3.93-5.22); RDW-SD 62.4 fL; WBC 7.23 10^3/uL (4.4-10.8)
[2020-10-16 11:23] LABS: D-Dimer 240 ng/mlFEU (<500)
[2020-10-16 12:07] LABS: ALT 17 U/L (14-59); AST 12 U/L (15-37); Albumin 3.8 g/dL (3.4-5.0); Alkaline Phosphatase 68 U/L (46-116); Anion Gap 8.8 mmol/L (3-11); BUN 12 mg/dL (7-18); Bilirubin, Total 0.3 mg/dL (0.2-1.0); C-Reactive Protein 0.26 mg/dL (0.0-0.3); CO2 27.2 mmol/L (21.0-32.0); CREATININE 0.8 mg/dL (0.55-1.02); Calcium 8.8 mg/dL (8.5-10.1); Chloride 106 mmol/L (98-107); Glucose 93 mg/dL (74-106); NT-proBNP 188 pg/mL (<300); Potassium 4.4 mmol/L (3.5-5.1); Sodium 142 mmol/L (136-145); Total Protein 6.6 g/dL (6.4-8.2)
[2020-10-16 12:13] LABS: GGT 39 U/L (5-55)
== END 2020-10-16 05:06 | disposition home or self-care (01) ==
LOC: LBO 05:05
PROVIDERS: PCP Nurse Practitioner; Visit Provider Surgery
DX: E03.9 Hypothyroidism, unspecified (principal); F10.10 Alcohol abuse, uncomplicated; F41.9 Anxiety disorder, unspecified; F43.10 Post-traumatic stress disorder, unspecified; R10.12 Left upper quadrant pain; I50.9 Heart failure, unspecified; G62.9 Polyneuropathy, unspecified; Z86.711 Personal history of pulmonary embolism
CPT/HCPCS: 36415; 80053; 82977; 83880; 85025; 85379; 86140

== ENCOUNTER 2020-10-23 01:33 | Outpatient (CLI) | payer MEDICAID, SELFPAY ==
--- NOTE | 2020-10-23 11:45 | DI.CT_ITS ---
Exam(s) CT CHEST WO EXAM: CT CHEST WO CLINICAL HISTORY: spiculated mass right lung on CXR, R91.8. TECHNIQUE: Imaging protocol: Axial computed tomography images were obtained and coronal and sagittal reformatted images were created and reviewed. COMPARISON: CT RENAL COLIC WO CONTRAST from 08/08/[address] ABDOMEN PELVIS W from 09/04/[address] ABDOMEN PELVIS W from 09/04/[address] CHEST PE CTA from 10/07/[address] CHEST PE CTA from 10/07/[address] CHEST PE CTA from 08/12/[address] CHEST PE CTA from 08/12/[address] CHEST PE CTA from 09/21/[address] CHEST PE CTA from 09/21/[address] ABDOMEN PELVIS W from 03/23/[address] ABDOMEN PELVIS W from 03/23/[address] THORACIC LUMBAR SPINE WO from 07/10/[address] THORACIC LUMBAR SPINE WO from 07/10/[address] CHEST WO from 07/14/[address] CHEST WO from 07/14/2020 CR XR CHEST 2V PA LATERAL from 10/12/2020 CR XR CHEST 2V PA LATERAL from 10/12/2020 FINDINGS: Tracheobronchial tree: Patent where visualized. Pulmonary parenchyma: There is a small focal area of consolidation in the right lower lobe. There is a 2 cm nodular component along the posterior wall of the right lower lobe. There does appear to be associated calcification. This area has been present on prior examinations dating back to 2019. It has shown some decrease in size. No architectural distortion. Mediastinum and Eli: No dominant adenopathy or fluid collection. Pleura: No effusion or pneumothorax. Heart: The heart is not dilated. No coronary artery calcifications are seen. No pericardial effusion. Aorta: Thoracic aorta non-dilated. Mild atherosclerosis. Upper abdomen: Unremarkable. Lymph nodes: Within normal limits. Soft tissues: There is a nodule seen in the left breast measuring 9 mm. This was seen on the mammogr am from 10/12/2020. Please refer to the mammogram report for complete details. Bones:There are again seen compression fractures of T9-T12 and L2 the T9 compression fracture deformi ty has progressed since 07/10/2020. There is now loss of almost 2/3 of the height of the vertebral bernie dy. The T12 and L2 compression fractures appears stable. IMPRESSION: 1. 2 cm nodular density along the posterior wall of the right lower lobe. This has been present on p rior examinations dating back to 2019. Further imaging with PET-CT should be considered. 2. Thoracic and lumbar compression fracture deformities. There has been progression of the T9 compre ssion fracture since 07/10/2020. RADIATION DOSE DELIVERED: 599.16mGy.cm Total DLP 599.16mGy.cm Total DLP DATA REPOSITORY: All CT scans at this facility are submitted to the National Radiology Data Registry (NRDR) Dose Index Registry (DIR) with the [employer] (A[employer]). RADIATION OPTIMIZATION: All CT scans at this facility use at least one of these dose optimization te chniques: automated exposure control; mA and/or kV adjustment per patient size (includes targeted exa ms where dose is matched to clinical indication); or iterative reconstruction.
--- NOTE | 2020-11-02 13:14 | W.PM.PROGNOT ---
Date of Service Date of service: 11/02/20 Time of Service: 14:16 Assessment and Plan Assessment and plan (1) Right lower lobe lung mass: Status: Acute Assessment and plan: Did review the patient's CTs of the chest from 2020, 2019, and [address] Pedersen. The spiculated mass that Dr. Valencia referenced on her [address] does appear to be the same area that was previously noted in 2019. I do not think she has a new lung cancer. We will continue with the originally planned colonoscopy and EGD. Patient was notified and scheduled for 09 November.
== END 2020-10-23 01:53 ==
PROVIDERS: PCP Nurse Practitioner; Visit Provider Surgery
DX: R91.8 Other nonspecific abnormal finding of lung field (principal); R91.1 Solitary pulmonary nodule; M48.56XA Collapsed vertebra, not elsewhere classified, lumbar region, initial encounter for fracture; M48.54XA Collapsed vertebra, not elsewhere classified, thoracic region, initial encounter for fracture
CPT/HCPCS: 71250

== ENCOUNTER 2020-11-07 02:22 | Outpatient (CLI) | payer MEDICAID, SELFPAY ==
[2020-11-07 12:12] LABS: Source Nasal/Nares
[2020-11-07 14:28] LABS: COVID-19 PCR Negative (Negative)
== END 2020-11-07 02:23 | disposition home or self-care (01) ==
PROVIDERS: PCP Nurse Practitioner; Visit Provider Surgery
DX: Z20.822 Contact with and (suspected) exposure to COVID-19 (principal)
CPT/HCPCS: 87635

== ENCOUNTER 2020-11-19 01:20 | Outpatient (CLI) | payer MEDICAID, SELFPAY ==
--- NOTE | 2020-11-19 06:45 | DI.NM_ITS ---
APPROVED REPORT Exam: Exercise Treadmill Patient Location: Out-Patient Room/Bed: Stress Nurse: Nakia Reid RN; Pee Cannon RN Ordering Provider:COLE RICCO, Contact Number: [phone] BMI: 27.45 Baseline Rhythm: Sinus Rhythm Comment: T wave inversion lead V2 Indications: hx of NSTEMI, pre-op eval, bilat PE Medical History Medical History: ETOH, anxiety, depression, hypothyroidism, pulmonary embolism, CAD, peripheral neuro jacquelyn, CHF Cardiac Medications: omeprazole, nicotine patch, enoxaparin, atorvastatin Allergies: sulfa Cardiac Risk Factors: Family hx, smoker, HLD Previous Cardiac Procedures: none Pretest Chest Pain Characteristics: none Exercise History: Indeterminate Physical Disabilities: none Lung Sounds: Clear to auscultation Heart Sounds: Regular Stress Test Details Test: Exercise stress testing was performed using a Jose protocol. Nuclear Acquisition: Rest Tc-99m/Stress Tc-99m 1 day Rest Isotope: Tc-99m Sestamibi. Dose: 11 Date: 11/19/2020 Injection Time: 0900 Stress Isotope: Tc-99m Sestamibi. Dose: 36 Date: 11/19/2020 Injection Time: 1017 HR Resting HR Supine: 62 bpm Max Heart Rate (APMHR): 157.616839 bpm Resting HR Standin bpm Target HR (85% APMHR): 133.111031 bpm Max HR Achieved: 136 bpm % of APMHR: 86.62 Recovery HR: 92 bpm HR response to stress: Normal HR response to stress BP Resting BP Supine: 118/74 mmHg Resting BP Standin/74 mmHg Max BP: 188/90 mmHg Recovery BP: 130/74 mmHg BP response to stress: Normal blood pressure response to stress. ECG Resting ECG: Sinus Rhythm Ectopy: none Comment: T wave inversion lead V@ Stress ECG: Sinus Tachycardia ST Change: No significant ST segment changes noted Arrhythmia: None Recovery ECG: Sinus Rhythm Recovery ST Change: No significant ST segment changes noted Recovery Arrhythmia: APC, VPC, Non-sustained ventricular tachycardia Comment: 3-4 beat runs NSVT, T wave inversion lead V2 and V3 Clinical Reason for Termination: Fatigue Stress Symptoms: Dyspnea Exercise duration: 5 min14 sec Highest Stage Reached: Stage 2: 2.5 mph at 12% grade. Exercise capacity: 7.05 METs Rate Pressure Product: [id number] Stress ECG Conclusion 1. Resting electrocardiogram showed nondiagnostic anterior ST-T abnormalities 2. The patient exercised on the Jose protocol and completed a workload of 7 METS, limited by shortne ss of breath 3. Normal heart rate and blood pressure response to exercise. The patient achieved 86% of predicted heart rate for age 4. Electrocardiographically there was no evidence of myocardial ischemia 5. There was a 4 beat run of nonsustained ventricular tachycardia seen in early recovery Stress Test Summary STAGE Time (mins) Speed (mph) Grade (%) HR BP SYMPTOMS METS Supine 62 118/74 Standing 67 116/74 1 3 1.7 10 110 122/74 moderate dyspnea, 97% 4.6 2 6 2.5 12 120 moderate dyspnea, 97% 7 1 min recovery 94 188/90 dyspnea resolved, 97% 3 min recovery 93 152/74 6 min recovery 92 130/74 MPI Conclusion Normal myocardial perfusion without evidence of ischemia or prior infarction EF measured at 87% Radiologist Interpretation Radiologist Interpretation by: Owen Valencia MD Interpretation Date/Time: 11/20/2020 16:43:00
== END 2020-11-19 01:40 ==
PROVIDERS: PCP Nurse Practitioner; Visit Provider Surgery
DX: I25.2 Old myocardial infarction (principal); Z01.810 Encounter for preprocedural cardiovascular examination; I26.99 Other pulmonary embolism without acute cor pulmonale; Z82.49 Family history of ischemic heart disease and other diseases of the circulatory system; F17.210 Nicotine dependence, cigarettes, uncomplicated; I47.2 Ventricular tachycardia
CPT/HCPCS: 78452; 93017

== ENCOUNTER 2020-11-28 01:34 | Outpatient (CLI) | payer MEDICAID, SELFPAY ==
--- NOTE | 2020-11-28 | DI.US_ITS ---
Exam(s) US BREAST LT LIMITED EXAM: US BREAST LT LIMITED CLINICAL HISTORY: F/U MAMMO, NEW LT BREAST NODULE,R92.8 TECHNIQUE: Ultrasound left breast performed using standard protocol. COMPARISON: Comparison with prior ultrasound dated 12/15/2018 and prior mammograms from [facility] and [facility]. FINDINGS: There is a stable 1.3 x 1.2 x 0.4 cm hypoechoic nodule at the 12 o'clock position of the left breast 1 cm from the nipple. There is a biopsy clip within the nodule. There is a 0.4 x 0.4 x 0.6 cm nodul e at the 10 o'clock position of the left breast 4 cm from the nipple. A biopsy clip is noted. This corresponds to the biopsied nodule in the left breast. Comparison with outside examination from 2019 shows the presence of the nodule in the medial left breast with a biopsy clip present. It is sh own interval decrease in size on the mammogram from 10/12/2020 compared to the mammogram from 03/30/2019 . IMPRESSION: 1. No significant interval change with no specific features of malignancy noted. 2. Unless there is more urgent need, screening mammography is recommended, as per [place] [employer] guidelines. 3. Findings were discussed with the patient on the date of the examination. BI-RADS Category 2 - Benign Findings Breast Density - Category B - Scattered areas of fibroglandular density DATA REPOSITORY:
== END 2020-11-28 01:54 ==
PROVIDERS: PCP Nurse Practitioner; Visit Provider Nurse Practitioner
DX: R92.8 Other abnormal and inconclusive findings on diagnostic imaging of breast (principal); N63.25 Unspecified lump in the left breast, overlapping quadrants; N63.22 Unspecified lump in the left breast, upper inner quadrant
CPT/HCPCS: 76642

== ENCOUNTER 2020-11-28 02:17 | Outpatient (CLI) | payer MEDICAID, SELFPAY ==
[2020-11-28 10:40] LABS: Source Nasal/Nares
[2020-11-28 15:49] LABS: COVID-19 PCR Negative (Negative)
== END 2020-11-28 02:18 | disposition home or self-care (01) ==
LOC: LBO 02:17
PROVIDERS: PCP Nurse Practitioner; Visit Provider Surgery
DX: Z20.822 Contact with and (suspected) exposure to COVID-19 (principal); Z01.818 Encounter for other preprocedural examination
CPT/HCPCS: 87635

== ENCOUNTER 2020-11-30 10:42 | Day surgery (SDC) | payer MEDICAID, SELFPAY ==
--- NOTE | 2020-11-29 21:51 | W.COLOREPORT ---
Colonoscopy Report Date of procedure: 11/30/20 Pre-op diagnosis general: UC/rectal bleeding Post-op diagnosis procedure note: other (Polyps) Surgeon: Sherlyn Balbuena Anesthesia Type: General:No Airway Estimated blood loss (mL): 2 Pathology: other Complications: None Disposition: same day Prep: Miralax/Dulcolax Retraction Time: 15 Procedure Description: After informed consent was obtained the patient was taken to the procedure room and placed in a left decubitous position. Monitors were applied and a time out was done. The patients name, date of , procedure, allergies to medications and metal in their body was reviewed. The patient was then sedated. Once sedated and comfortable a rectal exam was done. External exam was normal. Internal exam revealed a normal sphincter tone and no palpable masses. The scope was then introduced and retrofelexed No internal hemorrhoids were identified. The scope was then advanced to the cecum w/out difficulty. The TI and appendiceal orifice were identified. The prep was adequaye there was still a very moderate amount of residual fecal matter. This was lavaged.. The scope was then slowly retracted over 15 minutes back into the rectum. 2 biopsies are taken every 10 cm, from the cecum to the rectum. She does not have any diverticular disease. She has no signs of acute or chronic ulcerative colitis. The Mucosa appears pink and healthy. She has a small 5 mm, flat polyp at 20 cm; that is removed with a cold biting forcep. She has a flat, 2 centimeter polyp that is removed with a hot snare at 40 cm. The specimen is retrieved and no bleeding was noted. A clip is placed over the defect. She has another 0.75 cm flat polyp at 30 cm. This is removed with 2 bites of the cold forcep. the scope was removed and the patient was woken up and taken back to Same day surgery in stable condition. The patient tolerated the procedure well and there were no immediate complications. Follow up: The patient should follow up in 2 years, pathology pending, and provided she is healthy enough for anesthesia, unless they develop changes in bowel habits or other new gastrointestinal complaints.
--- NOTE | 2020-11-29 21:52 | PDOC.DSDIS_ITS ---
Discharge Plan Disposition Patient Disposition: HOME Condition: Good Discharge Details Reason For Visit: stomach and colon scope Attending Provider: Sherlyn Balbuena Primary Care Provider: Nancy Shrestha Home Meds and New Rx's Prescriptions: Continued folic acid 1 mg tablet 1 mg PO DAILY RF: 0 pregabalin 150 mg capsule 150 mg PO BID RF: 0 bisacodyl 10 mg Suppository 10 mg VT DAILY PRN PRNQty: 10 RF: 0 docusate sodium [Colace] 100 mg Capsule 100 mg PO BID Qty: 30 RF: 0 escitalopram oxalate [Lexapro] 20 mg Tablet 20 mg PO DAILY RF: 0 aripiprazole [Abilify] 5 mg Tablet 5 mg PO DAILY RF: 0 enoxaparin 80 mg/0.8 mL Syringe 80 mg subcut Q12H Qty: 60 RF: 0 levothyroxine 100 mcg tablet 100 mcg PO DAILY RF: 0 thiamine mononitrate (vit B1) [Vitamin B-1 (mononitrate)] 100 mg Tablet 100 mg PO DAILY Qty: 30 RF: 0 naltrexone 50 mg tablet 50 mg PO DAILY Qty: 30 RF: 2 nicotine [Nicoderm CQ] 21 mg/24 hr patch 24 hour 1 patch transdermal DAILY Qty: 28 RF: 2 cyanocobalamin (vitamin B-12) [Vitamin B-12] 1,000 mcg tablet 1,000 mcg PO DAILY Qty: 90 RF: 3 Changed omeprazole 20 mg capsule,delayed release(DR/EC) 20 mg PO BID Qty: 60 RF: 13 Discontinued bisacodyl [Dulcolax (bisacodyl)] 5 mg tablet,delayed release (DR/EC) 5 mg PO ONCE Qty: 4 RF: 0 polyethylene glycol 3350 17 gram/dose powder 238 g PO ONCE Qty: 238 RF: 0 Discharge Instructions Additional Instructions: DSU Colonoscopy Post- Op Instructions Instructions for Everyone who is given Anesthesia: For your safety, please do the following for the next twenty-four (24) hours: *Do Not operate a motor vehicle (car, truck, motorcycle, etc.) *Do Not drink alcoholic beverages or use any recreational drugs for the first 24 hours or while taking pain medications. The medications in your body may have a reaction that can be dangerous. *Do Not make any important decisions or sign any important papers. Findings: reflux increase omeprazole BID colon polyps no signs of acute UC resume lovenox at 8am 10/9am Follow up: Dr. Balbuena in 2 weeks. 1. No lifting over 20 pounds or strenuous activity for the first 24 hours after your procedure. After 24 hours there are no restrictions on your activity but you may feel fatigued for a few days. 2. After you arrive home you may have a light meal and return to your normal di et as you can tolerate it without feeling sick to your stomach. 3. You may have a bloated, gaseous feeling in your belly (abdomen) after a colonoscopy. Passing gas and belching will help. Walking or lying down on your left side with your knees flexed may relieve the discomfort. Call the office at [phone] (Office) or [phone] (Hospital) right away if you notice any of the following: a.Vomiting of blood or ?coffee ground stools?. b.Rectal bleeding 1Tbsp, blood clots or continuous bleeding. c.Severe belly (abdominal) pain. d.A hard distended belly (abdomen) and an inability to pass gas. 4. Please don?t expect to have a normal BM (bowel movement) for 2-3 days after your procedure. 5. If there are questions regarding the findings of your procedure, please contact your doctor 6. If you are unable to contact your doctor with a problem, contact the hospital at [phone]. 7. Continue all your regular medications unless directed otherwise. I understand the above instructions and have no questions. Signature of Patient or Adult Escort Name of Responsible Adult Escort Signature of Nurse Date/Time Activity:: see above Diet:: see above Discharge Orders Discharge Orders: Discharge Order (Routine); Ordered 11/29/20 Ordered By: Sherlyn Balbuena DS: Diagnosis Discharge Diagnosis (1) Chronic GERD: Status: Acute (2) Colon polyp: Status: Acute
--- NOTE | 2020-11-29 21:52 | W.PM.ENDDOP ---
Date of service: 11/30/20 Endoscopy Report DATE OF PROCEDURE: 11/30/20 PRE-OP DIAGNOSIS: gerd POST-OP DIAGNOSIS: same SURGEON: hSerlyn Balbuena ANESTHESIA TYPE: General:No Airway ESTIMATED BLOOD LOSS: 1 PATHOLOGY: other COMPLICATIONS: None DISPOSITION: same day PROCEDURE DESCRIPTION: After informed consent was obtained the patient was take to the procedure room and placed in a supine position. Monitors were applied and a time out was done. The patients name, date of , procedure type, allergies to medications and metal in their body was reviewed. A bite block was placed and the patient was sedated. Once sedated and comfortable the gastroscope was advanced through the oropharynx which was grossly normal into the esophagus. The proximal and mid-esophagus were normal. In the distal esophagus there was no: Erosion, diverticula, hiatal hernia, varices or stricture.. The scope was advanced into the stomach and through the pylorus into the 3rd portion of the duodenum. The duodenum was noted to be normal. Biopsies were done all specimens are retrieved and no bleeding is noted. The scope was retracted back into the stomach and biopsies were done to rule out H. pylori. There were no ulcers, gastritis, or polyp. The scope was retroflexed. The cardia and fundus were noted to be normal. There is no hiatal hernia noted. The scope was retracted back into the esophagus and biopsies were done of the GE junction to rule out Alcala's. The Z line was regular. The scope was removed and the patient was woken up and taken back to [facility] in stable condition. Follow up: 2wks
[2020-11-30 10:56] VITALS: BP 100/73; PULSE 87; RESP 16; TEMP 36.3; O2SAT 99
[2020-11-30] MEDS: Lactated Ringers 1,000 ML 80 ML IV (11:30)
[2020-11-30 11:39] VITALS: BMI 28.6
--- NOTE | 2020-11-30 11:39 | ANES.PREOP_ITS ---
General Info Date of Service Date Performed: 11/30/20 Height: 5 ft 5 in Weight: 78.1 kg Body Mass Index (BMI): 28.6 Surgical Procedure: Operation Date: 11/30/20 11:35 Proposed Procedures Side Surgeon p Colonoscopy/Gastroscopy Sherlyn Balbuena, Meds Allergies and Home Medications Allergies Allergy/AdvReac Type Severity Reaction Status Date / Time Sulfa (Sulfonamide AdvReac Intermediate headache/ Unverified 11/30/20 11:14 Antibiotics) itching Home Medication Medication Instructions Recorded aripiprazole [Abilify] 5 mg PO DAILY 06/23/18 escitalopram oxalate [Lexapro] 20 mg PO DAILY 06/23/18 omeprazole 20 mg PO DAILY 08/12/19 enoxaparin 80 mg SUBCUT Q12H #60 ml 08/13/19 folic acid 1 mg PO DAILY 12/24/19 levothyroxine 100 mcg PO DAILY 03/14/20 cyanocobalamin (vitamin B-12) 1,000 mcg PO DAILY #90 tab 03/25/20 [Vitamin B-12] naltrexone 50 mg PO DAILY #30 tab 03/25/20 nicotine [Nicoderm CQ] 1 patch TRANSDERMAL DAILY #28 ea 03/25/20 thiamine mononitrate (vit B1) 100 mg PO DAILY #30 tab 03/25/20 [Vitamin B-1 (mononitrate)] pregabalin 150 mg PO BID 07/11/20 bisacodyl 10 mg [place] DAILY PRN PRN #10 ea 07/13/20 docusate sodium [Colace] 100 mg PO BID #30 cap 07/13/20 bisacodyl 5 mg tablet,delayed 5 mg PO ONCE #4 tab 11/07/20 release polyethylene glycol 3350 17 238 g PO ONCE #238 g 11/07/20 gram/dose oral powder Current Visit Medications: Current Medications Generic Name Dose Route Start Last Admin Trade Name Freq PRN Reason Stop Dose Admin Hyoscyamine Sulfate 0.125 mg 11/29/20 21:53 Hyoscyamine 0.125 Mg Sl/Oral/Chew SL DIRECTED PRN Ringer's Solution 1,000 mls @ 80 mls/hr 11/30/20 06:00 11/30/20 11:30 IV 12/29/20 23:59 80 mls/hr INFUSION COLTON Administration IV Miscellaneous Supplies 1 each 11/30/20 06:00 Iv Access IV 12/29/20 23:59 DIRECTED [facility] Ondansetron HCl 4 mg 11/29/20 21:53 Ondansetron 4 Mg/2 Ml Vial IVP Q4H PRN PRN Nausea / Vomiting Sodium Chloride 0 ml 11/30/20 06:00 Normal Saline Flush 10 Ml Syr IV 12/29/20 23:59 PRN PRN Sodium Chloride 0 ml 11/30/20 06:00 Normal Saline 10 Ml Vial IJ 12/29/20 23:59 DIRECTED PRN Sterile Water 0 ml 11/30/20 06:00 Water,Injection,Sterile 10 Ml Vial IJ 12/29/20 23:59 DIRECTED PRN PFSH Active Problems Active Problems: Problem Status Onset Code Right lower lobe pneumonia J18.1 Hypotension I95.9 Hypokalemia E87.6 DVT prophylaxis Z29.9 Discharge planning issues Z02.9 Nausea and vomiting R11.2 Ambulatory dysfunction R26.2 Hypomagnesemia E83.42 Bilateral pulmonary embolism I26.99 Pain and swelling of left upper extremity M79.602, M79.89 Lung mass R91.8 Pleuritic chest pain R07.81 Abnormal mammogram R92.8 Shortness of breath R06.02 Polycythemia D75.1 Chest pain R07.9 Urinary urgency R39.15 Breast lump N63.0 Cannabis use disorder, mild, abuse F12.10 Suicidal ideation R45.851 PTSD (post-traumatic stress disorder) F43.10 Abdominal pain, vomiting, and diarrhea R10.9, R11.10, R19.7 Hypokalemia E87.6 Abnormal EKG R94.31 Vomiting R11.10 Pancreatitis K85.90 UTI (urinary tract infection) N39.0 Alcohol withdrawal delirium F10.231 History of pulmonary embolus (PE) Z86.711 DVT prophylaxis Z29.9 Discharge planning issues Z02.9 Hypomagnesemia E83.42 Peripheral neuropathy G62.9 Ileus K56.7 Diarrhea R19.7 Chronic pulmonary embolism I27.82 Pulmonary infarct I26.99 LUQ abdominal pain R10.12 Osteoporosis M81.0 Lumbar vertebral fracture Thoracic vertebral fracture S22.009A Acute hyperkalemia E87.5 VLADIMIR (acute kidney injury) N17.9 AMS (altered mental status) R41.82 Non-ST elevation [place] (NSTEMI) I21.4 Rhabdomyolysis M62.82 Pneumonia J18.9 CHF (congestive heart failure) I50.9 CAD (coronary artery disease) I25.10 Right lower lobe lung mass R91.8 ASCUS with positive high risk HPV Ulcerative colitis K51.90 Pulmonary emboli I26.99 Depression F32.9 Anxiety F41.9 Hypothyroidism E03.9 Alcohol abuse F10.10 Medical History Medical History (Updated 11/30/20 @ 11:50 by Sherlyn Balbuena DO) Alcohol abuse Anxiety ASCUS with positive high risk HPV Depression Hx of myocardial infarction pt. states mild [place] in april 2020 Hypothyroidism Pulmonary emboli Ulcerative colitis Surgical History Surgical History Hx of section Hx of colonoscopy Tobacco Smoking/Tobacco Use Status: Current every day Tobacco Type: cigarettes Smoking cigarettes per day: 10 Years smoked: 46 Tobacco: How many years used: 46 Alcohol Alcohol Intake: current Alcohol intake frequency: holidays/special occasions only Alcohol type: wine Substance Use Substance use: Daily Substance use type: marijuana Details: states last used marijuana 11.29.20 Vital Signs and Lab Results Vital Signs Most Recent Vital Signs in EMR: Most Recent Vital Signs Temp Pulse Resp BP Pulse Ox 36.3 C L 87 16 100/73 99 11/30/20 10:56 11/30/20 10:56 11/30/20 10:56 11/30/20 10:56 11/30/20 10:56 Lab Results Blood Type / Crossmatch: No Data to Display Complete Blood Count: No Data to Display Complete Metabolic Panel: No Data to Display Liver Function Panel: No Data to Display Coagulation Panel: No Data to Display Cardiac Panel: No Data to Display Arterial Blood Gas: No Data to Display Venous Blood Gas: No Data to Display Pancreas Panel: No Data to Display Thyroid Panel: No Data to Display Infectious Disease: Coronavirus (COVID-19)(PCR) Negative (Negative) 11/28/20 10:24 11/28/20 Coronavirus 2019 Source Nasal/Nares 11/28/20 10:24 11/28/20 Blood Cultures: No Data to Display Toxicology Panel: No Data to Display Imaging and Studies Imaging and Studies EKG Summary: 10/12/2020: Exam: Resting ECG Reason for Exam: preOp Patient Location: O HR:67 bpm ECG Measurements Heart Rate 67 AXIS PA 149 P 64 QRSd 73 QRS 45 QT 401 T32 QTc 424 Conclusion Sinus rhythm...normal P axis, V-rate 60- 99 Stress Test Summary: 11/19/2020: Stress ECG Conclusion 1. Resting electrocardiogram showed nondiagnostic anterior ST-T abnormalities 2. The patient exercised on the Jose protocol and completed a workload of 7 METS, limited by shortness of breath 3. Normal heart rate and blood pressure response to exercise. The patient achieved 86% of predicted heart rate for age 4. Electrocardiographically there was no evidence of myocardial ischemia 5. There was a 4 beat run of nonsustained ventricular tachycardia seen in early recovery Echocardiogram Summary: 03/14/2020: Conclusion Left Ventricle : The left ventricle is normal size. The left ventricular systolic function is normal. The left ventricular ejection fraction is within the normal range. There is normal left ventricular wall thickness. There is normal LV segmental wall motion. The left ventricular diastolic function is normal. LVEF is 50%. Right Ventricle : The right ventricle is normal size. The right ventricular s ystolic function is normal. Estimated RVSP is 21 mmHg. Atria : The left atrium size is normal. The right atrium size is normal. Valves: There are no hemodynamically significant valvular lesions. Please see remainder of study for further details. Compared to study from 08/30/2019, there is no significant change. Anesthesia Assessment and Plan Anesthesia History Personal History: No History of Anesthesia Complications Family History: No Family History of Anesthesia Complications Exercise Tolerance Exercise Tolerance: Metabolic Equivalents>4 Cardiac & Pulmonary Exam Cardiac Exam: Normal S1/S2 Heart Sounds Pulmonary Exam: Clear Bilateral Breath Sounds Airway Exam Known Difficult Airway: Yes Mallampati Class: 1 Mouth Opening: Normal (> 3cm) Thyromental Distance: Greater than 3 cm Neck Range of Motion: Full ROM Neck Circumference: Normal Teeth Condition: Normal Dentition ASA Classification ASA Score: ASA 3 Emergency Case?: No NPO Status NPO Status: NPO Clears >2 hours, Solids >8 hours Anesthesia Plan Resuscitation Status: Full Code Anesthesia Technique: General Anesthesia Airway Planned: Endotracheal Tube Pain Management: Surgeon and patient request nerve block Monitors Used: Standard Monitors
--- NOTE | 2020-11-30 11:43 | W.PM.HP.N ---
Date of service: 11/30/20 Time of Service: 11:43 Assessment and Plan Assessment and plan (1) Ambulatory dysfunction: Status: Acute (2) Bilateral pulmonary embolism: Status: Acute Assessment and plan: Informed consent is obtained for the procedural (explained in simple layman's terms that the pt and/or family could understand) explaining risks vs benefits and alternatives to the procedure and consequences if we do not do the procedure and need/rational for the procedure. Risks include but are not limited to: bleeding, infection, perforation of esophagus, stomach, colon, small intestines, bronchus or trachea, or PTX. This would necessitate emergency surgery to repair the damage w/ possible ostomy; and other associated complications w/ the required surgery. Also complications of anesthesia including aspiration, ID/CVA/. (3) Cannabis use disorder, mild, abuse: Status: Acute (4) PTSD (post-traumatic stress disorder): Status: Acute (5) Peripheral neuropathy: Status: Acute (6) Chronic pulmonary embolism: Status: Chronic Qualifiers: Acute cor pulmonale presence: without acute cor pulmonale Pulmonary embolism type: other Qualified Code(s): I27.82 - Chronic pulmonary embolism (7) Pulmonary infarct: Status: Acute (8) Lumbar vertebral fracture: Status: Acute Qualifiers: Encounter type: initial encounter Fracture morphology: other fracture Fracture type: closed Lumbar vertebra fracture level: unspecified lumbar vertebra Qualified Code(s): S32.008A - Other fracture of unspecified lumbar vertebra, initial encounter for closed fracture (9) Thoracic vertebral fracture: Status: Acute Qualifiers: Encounter type: initial encounter Fracture morphology: other fracture Fracture type: closed Thoracic vertebra fracture level: unspecified thoracic vertebra Qualified Code(s): S22.008A - Other fracture of unspecified thoracic vertebra, initial encounter for closed fracture (10) VLADIMIR (acute kidney injury): Status: Acute (11) Non-ST elevation ID (NSTEMI): Status: Acute (12) CHF (congestive heart failure): Status: Chronic (13) CAD (coronary artery disease): Status: Chronic (14) ASCUS with positive high risk HPV: Status: Acute (15) Ulcerative colitis: Status: Chronic Qualifiers: Digestive disease complication type: without complication Ulcerative colitis location: unspecified ulcerative colitis location Qualified Code(s): K51.90 - Ulcerative colitis, unspecified, without complications (16) Pulmonary emboli: Status: Chronic (17) Hypothyroidism: Status: Chronic (18) Alcohol abuse: Status: Chronic (19) Pancreatitis: Status: Chronic History of Present Illness Her last dose of Lovenox was a.m. Narrative: pt is here today for EGD/CE. He has a hx of UC and needs to have a f/u CE. She has not been having any s/s. She has a hx of polysub abuse. SHe has a hx of pnacreatitis from ETOH abuse. She is still occ drinks. recent stress test was negative. She had recent NSTMI and a recent negative stress test. She has a hx of PE/pulm infarct and chronic PE. She has breakthrough on po anticoags and is being kept on lovenox. Her bowels have been regular. They have been once a day and formed but soft. She is not noticed any bleeding. She is not had any weight loss. She has not had any further shortness of breath or chest pain. She did have a stress test and this was negative. She does have a history of GERD. She is on omeprazole and feels her symptoms are pretty well controlled. She has no pain or difficulty swallowing. She has no abdominal pain. She occasionally drinks alcohol. She has not had any further problems with her pancreas. Review of Systems All systems reviewed & are unremarkable except as noted in HPI and below PFSH Medical History (Updated 11/30/20 @ 11:50 by Sherlyn Balbuena DO) Alcohol abuse Anxiety ASCUS with positive high risk HPV Depression Hx of myocardial infarction pt. states mild [place] in april 2020 Hypothyroidism Pulmonary emboli Ulcerative colitis Surgical History Hx of section Hx of colonoscopy Family History Father Heart disease Paternal Grandmother Cancer Maternal Grandmother Cancer Social History Smoking/Tobacco Use Status: Current every day Tobacco Type: cigarettes Years smoked: 46 Tobacco: How many years used: 46 Smoking risk assessment performed?: Yes Alcohol Intake: current Alcohol Intake frequency: holidays/special occasions only Alcohol type: wine Drug use: Daily Substance use type: marijuana Details: states last used marijuana 11.29.20 Current gender identity: female Do you feel safe at home: Yes Meds Allergies and Home Medications Allergies Allergy/AdvReac Type Severity Reaction Status Date / Time Sulfa (Sulfonamide AdvReac Intermediate headache/ Unverified 11/30/20 11:14 Antibiotics) itching Home Medications Medication Instructions Recorded Confirmed Type aripiprazole [Abilify] 5 mg PO DAILY 06/23/18 11/30/20 History escitalopram oxalate [Lexapro] 20 mg PO DAILY 06/23/18 11/30/20 History omeprazole 20 mg PO DAILY 08/12/19 11/30/20 History enoxaparin 80 mg SUBCUT Q12H #60 ml 08/13/19 11/30/20 Rx folic acid 1 mg PO DAILY 12/24/19 11/30/20 History levothyroxine 100 mcg PO DAILY 03/14/20 11/30/20 History cyanocobalamin (vitamin B-12) 1,000 mcg PO DAILY #90 tab 03/25/20 11/30/20 Rx [Vitamin B-12] naltrexone 50 mg PO DAILY #30 tab 03/25/20 11/30/20 Rx nicotine [Nicoderm CQ] 1 patch TRANSDERMAL DAILY #28 ea 03/25/20 11/30/20 Rx thiamine mononitrate (vit B1) 100 mg PO DAILY #30 tab 03/25/20 11/28/20 Rx [Vitamin B-1 (mononitrate)] pregabalin 150 mg PO BID 07/11/20 11/28/20 History bisacodyl 10 mg [place] DAILY PRN PRN #10 ea 07/13/20 11/30/20 Rx docusate sodium [Colace] 100 mg PO BID #30 cap 07/13/20 11/30/20 Rx bisacodyl 5 mg tablet,delayed 5 mg PO ONCE #4 tab 11/07/20 11/30/20 Rx release polyethylene glycol 3350 17 238 g PO ONCE #238 g 11/07/20 11/30/20 Rx gram/dose oral powder Exam Resp Effort & Inspection: normal respiratory effort and able to speak in complete sentences Auscultation: clear to auscultation bilaterally Cardio Rate: regular rate Rhythm: regular rhythm Results Last Vital Signs Temp 36.3 C L 11/30/20 10:56 Pulse 87 11/30/20 10:56 Resp 16 11/30/20 10:56 BP 100/73 11/30/20 10:56 Pulse Ox 99 11/30/20 10:56
--- NOTE | 2020-11-30 13:00 | BOWEL_PTH ---
PATIENT: Martina Kuhn LOC: [facility] U#:[id number] AGE/SX: 65/F ROOM: RE11/30/[address]: Sherlyn Balbuena : 1955 BED: DIS: 11/30/2020 SPEC #: [id number] RECD: 11/30/20 15:51 STATUS: RAMYA REZachery #: [id number] EVER: 11/30/20 13:[address]: Sherlyn Balbuena DEPT: Surgical Specimen RECD BY: [place] ENTERED: 11/30/20 16:04 SP TYPE: Bowel OTHR DR: Nancy Shrestha Tissues: 1 - BIOPSY BOWEL 2 - BIOPSY BOWEL 3 - STOMACH BIOPSY 4 - STOMACH BIOPSY 5 - ESOPHAGUS BIOPSY 6 - ESOPHAGUS BIOPSY 7 - BIOPSY BOWEL 8 - BIOPSY BOWEL 9 - BIOPSY BOWEL 10 - BIOPSY BOWEL 11 - BIOPSY BOWEL 12 - BIOPSY BOWEL 13 - BIOPSY BOWEL 14 - BIOPSY BOWEL 15 - BIOPSY BOWEL 16 - BIOPSY BOWEL 17 - BIOPSY BOWEL 18 - BIOPSY BOWEL Procedures: GROSS AND MICRO LEVEL 4 Comments: [id number]
[2020-11-30 14:00] VITALS: BP 113/50; PULSE 60; RESP 14; TEMP 36; O2SAT 94
[2020-11-30 14:05] VITALS: BP 123/78; PULSE 62; RESP 18; TEMP 36; O2SAT 97
[2020-11-30 14:10] VITALS: BP 123/78; PULSE 59; RESP 17; TEMP 36; O2SAT 98
[2020-11-30 14:15] VITALS: BP 118/78; BP 124/59; PULSE 56; PULSE 61; RESP 13; RESP 16; TEMP 36; O2SAT 98; O2SAT 99
[2020-11-30 14:20] VITALS: BP 113/64; PULSE 57; RESP 20; TEMP 36.1; O2SAT 98
--- NOTE | 2020-11-30 14:37 | W.ANESPOSTOP ---
Postoperative Evaluation Date, Time and Location Date Performed: 11/30/20 Time Performed: 14:37 Patient Location: Day Surgery Unit Vital Signs Most Recent Imported Vital Signs: Most Recent Vital Signs Temp Pulse Resp BP Pulse Ox 36.1 C L 57 L 20 113/64 98 11/30/20 14:20 11/30/20 14:20 11/30/20 14:20 11/30/20 14:20 11/30/20 14:20 Pain Score Most Recent Pain Score: Most Recent Pain Score Pain Level 0 11/30/20 14:20 Assessment Mental Status: Awake (Alert & Oriented to Patient Baseline) Airway and Respiratory Function: Patent airway with normal (patient baseline) respiratory exam Cardiovascular Function: Hemodynamically Stable Hydration Status: Adequately Hydrated Nausea & Vomiting: No Nausea or Vomiting Pain: Pt. Denies Any Pain Peripheral Nerve Block: Patient did not receive a nerve block
== END 2020-11-30 15:35 | disposition home or self-care (01) ==
PROVIDERS: PCP Nurse Practitioner; Visit Provider Surgery
PROC: (CPT 45385; principal; 2020-11-30 11:30)
DX: K21.9 Gastro-esophageal reflux disease without esophagitis (principal); K51.911 Ulcerative colitis, unspecified with rectal bleeding; K63.5 Polyp of colon; Z12.11 Encounter for screening for malignant neoplasm of colon; D12.5 Benign neoplasm of sigmoid colon
CPT/HCPCS: 45385; 45380; 43239; 88305; J2001; J2250; J2405; J2704

== ENCOUNTER 2021-06-11 15:23 | Outpatient (REF) | payer MEDICAID, SELFPAY | END 2021-06-11 15:24 | disposition home or self-care (01) | LOC: NCHCN 15:23 | PROVIDERS: PCP Nurse Practitioner; Visit Provider Nurse Practitioner Family | DX: R39.15 Urgency of urination (principal) | CPT/HCPCS: 87086 ==

== ENCOUNTER 2021-12-16 16:18 | Outpatient (REF) | payer MEDICAID, SELFPAY ==
[2021-12-16 19:11] LABS: Abs Immature Grans 0.03 10^3/uL (0.0-0.06); Absolute Basophil Count 0.04 10^3/uL (0.0-0.2); Absolute Eosinophil Count 0.08 10^3/uL (0.0-0.7); Absolute Lymphocyte Count 2.43 10^3/uL (1.2-3.4); Absolute Monocyte Count 0.58 10^3/uL (0.1-0.8); Basophils % 0.5; HCT 44.1 % (36.0-46.0); HGB 15.1 g/dL (11.2-15.7); Immature Grans % 0.4; Lymphocytes % 31.7; MCH 33.4 pg (27.0-33.0); MCHC 34.2 % (32.0-36.0); MCV 98 fL (80-95); Monocytes % 7.6; Neutrophils % 58.8; Platelet Count 310 10^3/uL (130-400); RBC 4.52 10^6/uL (3.93-5.22); RDW 13.2 % (11.7-14.6); RDW-SD 47.5 fL; WBC 7.66 10^3/uL (4.4-10.8)
[2021-12-16 20:23] LABS: Vitamin D 25 Total 27.8 ng/mL (30-100)
[2021-12-16 20:40] LABS: ALT 25 U/L (14-59); AST 16 U/L (15-37); Albumin 4.2 g/dL (3.4-5.0); Alkaline Phosphatase 69 U/L (46-116); Anion Gap 11.7 mmol/L (3-11); BUN 9 mg/dL (7-18); Bilirubin, Total 0.4 mg/dL (0.2-1.0); CO2 25.3 mmol/L (21.0-32.0); CREATININE 0.8 mg/dL (0.55-1.02); Calculated LDL 109 mg/dL (<100); Chloride 104 mmol/L (98-107); Cholesterol 249 mg/dL (<200); Estimated GFR 82.23 (mL/min/1.73m2); Glucose 98 mg/dL (74-106); HDL Cholesterol 67 mg/dL (40-60); Potassium 3.9 mmol/L (3.5-5.1); Sodium 141 mmol/L (136-145); TSH (W/Ref FT4) 5.65 uIU/mL (0.36-3.74); Total Protein 7.3 g/dL (6.4-8.2); Triglyceride 366 mg/dL (<150); Vitamin B12 374 pg/mL (193-986)
[2021-12-16 20:57] LABS: FREE T4 0.95 ng/dL (0.76-1.46)
== END 2021-12-16 16:19 | disposition home or self-care (01) ==
LOC: NCHCN 16:18
PROVIDERS: PCP Nurse Practitioner; Visit Provider Nurse Practitioner Family
DX: E03.9 Hypothyroidism, unspecified (principal); F41.8 Other specified anxiety disorders; E78.5 Hyperlipidemia, unspecified; F10.20 Alcohol dependence, uncomplicated; Z79.899 Other long term (current) drug therapy; M54.89 Other dorsalgia; M85.88 Other specified disorders of bone density and structure, other site
CPT/HCPCS: 80053; 80061; 82306; 82607; 84425; 84439; 84443; 85025

== ENCOUNTER 2022-03-18 19:37 | Outpatient (REF) | payer MEDICAID, SELFPAY ==
[2022-03-18 17:48] LABS: Abs Immature Grans 0.03 10^3/uL (0.0-0.06); Absolute Basophil Count 0.04 10^3/uL (0.0-0.2); Absolute Eosinophil Count 0.06 10^3/uL (0.0-0.7); Absolute Lymphocyte Count 1.56 10^3/uL (1.2-3.4); Absolute Monocyte Count 0.44 10^3/uL (0.1-0.8); Absolute Neutrophil Count 4.92 10^3/uL (1.2-6.7); Basophils % 0.6; Eosinophils % 0.9; HCT 45.4 % (36.0-46.0); HGB 15.2 g/dL (11.2-15.7); Immature Grans % 0.4; Lymphocytes % 22.1; MCH 34.2 pg (27.0-33.0); MCHC 33.5 % (32.0-36.0); MCV 102 fL (80-95); MPV 10.2 fL (8.0-11.0); Monocytes % 6.2; Neutrophils % 69.8; Platelet Count 307 10^3/uL (130-400); RBC 4.45 10^6/uL (3.93-5.22); RDW 13.8 % (11.7-14.6); RDW-SD 52.5 fL; WBC 7.05 10^3/uL (4.4-10.8)
[2022-03-18 18:54] LABS: Vitamin D 25 Total 21.5 ng/mL (30-100)
[2022-03-18 18:57] LABS: ALT 24 U/L (14-59); AST 20 U/L (15-37); Albumin 3.9 g/dL (3.4-5.0); Alkaline Phosphatase 82 U/L (46-116); BUN 13 mg/dL (7-18); Bilirubin, Total 0.6 mg/dL (0.2-1.0); CREATININE 0.8 mg/dL (0.55-1.02); Calcium 9.3 mg/dL (8.5-10.1); Calculated LDL 96 mg/dL (<100); Chloride 106 mmol/L (98-107); Cholesterol 202 mg/dL (<200); Estimated GFR 82.23 (mL/min/1.73m2); Glucose 98 mg/dL (74-106); HDL Cholesterol 84 mg/dL (40-60); Potassium 4.7 mmol/L (3.5-5.1); Sodium 141 mmol/L (136-145); TSH (W/Ref FT4) 2.67 uIU/mL (0.36-3.74); Total Protein 6.9 g/dL (6.4-8.2); Triglyceride 113 mg/dL (<150); Vitamin B12 381 pg/mL (193-986)
== END 2022-03-18 19:38 | disposition home or self-care (01) ==
LOC: NCHCN 19:37
PROVIDERS: PCP Nurse Practitioner; Visit Provider Nurse Practitioner Family
DX: D53.9 Nutritional anemia, unspecified (principal); E53.8 Deficiency of other specified B group vitamins; E78.5 Hyperlipidemia, unspecified; F41.8 Other specified anxiety disorders; F12.10 Cannabis abuse, uncomplicated; F17.210 Nicotine dependence, cigarettes, uncomplicated; E55.9 Vitamin D deficiency, unspecified
CPT/HCPCS: 80053; 80061; 82306; 82607; 82746; 84443; 85025

== ENCOUNTER 2022-12-03 15:45 | Outpatient (REF) | payer MEDICARE, MEDICAID, SELFPAY ==
[2022-12-03 15:55] LABS: Bilirubin Small (Negative); Blood Negative (Negative); Clarity Turbid (Clear); Glucose Negative (Negative); Ketones Negative (Negative); Leukocyte Esterase Negative (Negative); Nitrite Negative (Negative); Specific Gravity 1.025 (1.005-1.025); Urobilinogen 0.2 mg/dL (Up to 0.2); pH 5.5 (5-8)
== END 2022-12-03 15:46 | disposition home or self-care (01) ==
LOC: NCHCN 15:45
PROVIDERS: PCP Nurse Practitioner; Visit Provider Nurse Practitioner Family
DX: N39.41 Urge incontinence (principal)
CPT/HCPCS: 81003

== ENCOUNTER → 2022-12-23 01:57 | Outpatient (CLI) | payer MEDICARE, MEDICAID, SELFPAY ==
--- NOTE | 2022-12-23 | DI.MAMMO_ITS ---
Exam(s) MAMMO SCREENING EXAM: MAMMO SCREENING CLINICAL HISTORY: SCREENING, Z12.39 TECHNIQUE: Bilateral full field digital CC and MLO mammographic images were obtained with 3D tomosyn thesis and utilizing computer aided detection (CAD). COMPARISON: Available for comparison. FINDINGS: Masses/Architectural Distortion: The left retroareolar nodule containing the biopsy clip is stable in size. There are 2 other biopsy clip seen in the left breast. There has been continued decrease in size in the opacity around a biopsy clip in the medial left breast. There is a new 3 mm nodule in th e upper outer quadrant of the right breast. No new areas of architectural distortion are present. Microcalcifications: No suspicious pleomorphic-type are seen. Skin Thickening/Nipple Retraction: None. IMPRESSION: 1. New right breast 3 mm nodule. 2. This area should be further evaluated with spot compression view. Limited right breast ultrasound is recommended at that time. BI-RADS Category 0 - Assessment Incomplete: Need additional imaging evaluation Breast Density - Category B - Scattered areas of fibroglandular density Breast density category C or D implies that the patient has dense breast tissue. Dense breast tissue is very common and is not abnormal but dense breast tissue can make it harder to find cancer on a ma mmogram. Also, dense breast tissue may increase their breast cancer risk. This information about the result of the mammogram report was provided to the patient to raise their awareness. Use this report when you speak with the patient about their risks for breast cancer, which includes their family hist ory. At that time, you may recommend for more screening tests (Ultrasound or MRI) as they might be us eful based on their risk. A negative radiographic report should not delay biopsy if a dominant or clinically suspicious mass is present. Up to ten percent of cancers are not identified on mammography. A negative report may reinforce clinical impression. Adenosis and dense breasts may obscure an underlying neoplasm. False positive reports average 6 to 10%. Patient will receive a letter notifying them of these results.
== END ==
PROVIDERS: PCP Nurse Practitioner; Visit Provider Nurse Practitioner Family
DX: Z12.31 Encounter for screening mammogram for malignant neoplasm of breast (principal)
CPT/HCPCS: 77063; 77067

== ENCOUNTER → 2022-12-26 00:56 | Outpatient (CLI) | payer MEDICARE, MEDICAID, SELFPAY ==
--- NOTE | 2022-12-26 | DI.US_ITS ---
Exam(s) MG MAMMO SCREEN CALL BACK UNI US BREAST RT LIMITED EXAM: MG MAMMO SCREEN CALL BACK UNI CLINICAL HISTORY: F/U MAMMO, R92.8, NEW RT BREAST NODULE. TECHNIQUE: Craniocaudal and mediolateral oblique spot compression digital Mammography views of the r ight breast followed by Tomosynthesis and right breast ultrasound. COMPARISON: 2018 through 2020 mammograms MG MG MAMMO SCREENING from 12/23/2022 US US BREAST RT LIMITED from 12/26/2022 FINDINGS: Mammography/Tomosynthesis: Masses/Architectural Distortion: Tiny circumscribed nodule lateral right breast. No suspicious featu res. Microcalcifictions: No suspicious pleomorphic-type are seen. Skin Thickening/Nipple Retraction: None. Right breast US: Echotexture: Normal appearance of the glandular tissue. Shadowing: No suspicious foci. Cyst: None. Solid lesions: None seen. Ductal dilation: None. IMPRESSION: 1. No evidence of malignancy is noted. 2. Unless there is more urgent need, follow-up screening mammography is recommended, as per [employer] guidelines. 3. The findings were discussed with the patient on the date of the examination. BI-RADS Category 2 - Benign Findings Density: A negative radiographic report should not delay biopsy if a dominant or clinically suspicious mass is present. Up to ten percent of cancers are not identified on mammography. A negative report may reinforce clinical impression. Adenosis and dense breasts may obscure an underlying neoplasm. False positive reports average 6 to 10%. Patient will receive a letter notifying them of these results.
== END ==
PROVIDERS: PCP Nurse Practitioner; Visit Provider Nurse Practitioner Family
DX: R92.8 Other abnormal and inconclusive findings on diagnostic imaging of breast (principal); Z12.31 Encounter for screening mammogram for malignant neoplasm of breast
CPT/HCPCS: 76642; 77063; 77067

== ENCOUNTER → 2022-12-31 00:26 | Outpatient (CLI) | payer MEDICARE, MEDICAID, SELFPAY ==
--- NOTE | 2022-12-31 | DI.CT_ITS ---
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 TECHNIQUE: Imaging protocol: Axial computed tomography images were obtained and coronal and sagittal reformatted images were created and reviewed. COMPARISON: CT CT CHEST WO from 10/23/2020 FINDINGS: Tracheobronchial tree: Patent where visualized. Pulmonary parenchyma: There is stable scarring in the medial aspect of the left lower lobe. There is a stable 2 cm nodule in the posterior aspect of the right lower lobe. No new pulmonary nodules are seen. No focal consolidating infiltrates are present. Mediastinum and Eli: No dominant adenopathy or fluid collection. The esophagus is unremarkable. Thyroid gland: Unremarkable. Pleura: No effusion or pneumothorax. Heart: The heart is not dilated. Mild coronary artery calcification is present. No pericardial effus ion. Aorta: Thoracic aorta non-dilated. Atherosclerosis. Upper abdomen: No acute abnormality. Lymph nodes: Within normal limits. Soft tissues: The nodule in the left breast is stable. Bones:Within normal limits for the patient's age. There are stable thoracic and lumbar compression f racture deformities. No acute fracture is identified. IMPRESSION: 1. No change in appearance of the chest compared to the prior examination. Stable 2 cm right lower l obe pulmonary nodule. 2. No acute pulmonary process. 3. Stable incidental findings in the chest as described above. RADIATION DOSE DELIVERED: Total DLP Total DLP DATA REPOSITORY: All CT scans at this facility are submitted to the National Radiology Data Registry (NRDR) Dose Index Registry (DIR) with the [employer] ([employer]). RADIATION OPTIMIZATION: All CT scans at this facility use at least one of these dose optimization te chniques: automated exposure control; mA and/or kV adjustment per patient size (includes targeted exa ms where dose is matched to clinical indication); or iterative reconstruction.
== END ==
PROVIDERS: PCP Nurse Practitioner Family; Visit Provider Nurse Practitioner Family
DX: J84.10 Pulmonary fibrosis, unspecified (principal); R91.8 Other nonspecific abnormal finding of lung field; Z72.0 Tobacco use
CPT/HCPCS: 71250

== ENCOUNTER 2023-05-30 16:19 | Outpatient (REF) | payer OTHER, MEDICAID, SELFPAY | END 2023-05-30 16:20 | disposition home or self-care (01) | LOC: LBN 16:19 | PROVIDERS: PCP Nurse Practitioner Family; Visit Provider Nurse Practitioner Family | DX: L03.116 Cellulitis of left lower limb (principal) | CPT/HCPCS: 87077; 87070; 87205 ==

== ENCOUNTER 2023-06-06 12:07 | Day surgery (SDC) | payer OTHER, MEDICAID, SELFPAY ==
[2023-06-06 12:31] LABS: Abs Immature Grans 0.05 10^3/uL (0.0-0.06); Absolute Eosinophil Count 0.07 10^3/uL (0.0-0.7); Absolute Lymphocyte Count 1.58 10^3/uL (1.2-3.4); Absolute Monocyte Count 0.73 10^3/uL (0.1-0.8); Basophils % 0.3; Eosinophils % 0.5; HCT 46.9 % (36.0-46.0); Immature Grans % 0.3; Lymphocytes % 10.8; MCH 33.3 pg (27.0-33.0); MCHC 34.1 % (32.0-36.0); MCV 98 fL (80-95); MPV 8.7 fL (8.0-11.0); Neutrophils % 83.1; Platelet Count 395 10^3/uL (130-400); RBC 4.81 10^6/uL (3.93-5.22); RDW 14.5 % (11.7-14.6); WBC 14.63 10^3/uL (4.4-10.8)
[2023-06-06 12:36] LABS: Absolute Basophil Count 0.04 10^3/uL (0.0-0.2); Absolute Neutrophil Count 12.16 10^3/uL (1.2-6.7)
[2023-06-06] MEDS: MORPHine 4 MG/ML SYR IVP (12:41)
[2023-06-06] MEDS: Normal Saline 1,000 ML 1000 ML IV (12:42)
[2023-06-06] MEDS: Ondansetron 4 MG/2 ML VIAL IVP (12:42)
[2023-06-06] MEDS: Gelatin SPONGE 12-7 MM PKT 1 EACH TP (12:43)
[2023-06-06 12:44] LABS: Prothrombin Time 9.9 sec (9.1-11.1)
[2023-06-06 12:46] LABS: ALT 19 U/L (14-59); AST 17 U/L (15-37); Albumin 3.2 g/dL (3.4-5.0); Alkaline Phosphatase 74 U/L (46-116); Anion Gap 10.8 mmol/L (3-11); BUN 8 mg/dL (7-18); Bilirubin, Total 0.6 mg/dL (0.2-1.0); CO2 26.2 mmol/L (21.0-32.0); CREATININE 0.9 mg/dL (0.55-1.02); Calcium 9.3 mg/dL (8.5-10.1); Chloride 105 mmol/L (98-107); Estimated GFR 70.51 (mL/min/1.73m2); Glucose 91 mg/dL (74-106); Potassium 3.2 mmol/L (3.5-5.1); Sodium 142 mmol/L (136-145); Total Protein 7.5 g/dL (6.4-8.2)
[2023-06-06 12:54] VITALS: BP 107/84; PULSE 71; RESP 18; TEMP 36.8; O2SAT 98
[2023-06-06] MEDS: Lactated Ringers 1,000 ML 50 ML IV ×2 (13:00→16:04)
--- NOTE | 2023-06-06 13:44 | W.GYNCONSULT ---
Date of service: 06/06/23 Time of Service: 13:45 Assessment and Plan Assessment and plan (1) Postcoital bleeding: Status: Acute Assessment and plan: Patient is seen in the emergency department with an episode of postcoital bleeding from intercourse last night. She has stable vital signs, stable hemoglobin, persistent vaginal bleeding. She has significant intolerance of examination and discomfort with this. For this reason the plan will be that she will go to the operating room for exam under anesthesia, evaluation of the vaginal mucosa, repair of vaginal laceration if present. Risks, benefits, alternatives including infection, bleeding, injury to surrounding organs, risk of anesthesia were all explained to the patient in full informed consent was obtained. As of note, she does have a number of antibodies which is precluding type and crossmatch for her blood. Blood bank will be contacted. All questions answered. (2) Chronic pulmonary embolism: Status: Chronic Qualifiers: Pulmonary embolism type: other Acute cor pulmonale presence: without acute cor pulmonale Qualified Code(s): I27.82 - Chronic pulmonary embolism (3) Hx of myocardial infarction: History of Present Illness History of Present Illness Chief Complaint: Vaginal bleeding Narrative: Patient states that she had intercourse last night which was normal and on complex, however postcoitally, she noticed vaginal bleeding. She states that she placed toilet paper in her vaginal vault and in the night and this morning woke up with increased bleeding. She did pass an egg sized clot. She has had examinations in the emergency department and had her vagina packed with Surgicel, and trauma gauze. This is caused a significant amount of discomfort. Per the ER physician no discrete traumatic area was noted, however she did see pooling posterior to her cervix. Patient denies any other significant trauma. She denied the fact that the sexual relations were uncomfortable or unwanted. She has a fairly complex medical history and that she has a clotting disorder and is anticoagulated with Eliquis. This has been for a number of years and will remain lifelong. She denies fevers or chills. She has had no vaginal discharge. Otherwise she is in her usual state of health. Consults Consult date: 06/06/23 Requesting physician: Tom Vallejo Review of Systems All systems reviewed & are unremarkable except as noted in HPI and below Constitutional Constitutional: Reports as per HPI ENT Ears, Nose, Mouth, and Throat: Reports system reviewed and no additional complaints, except as documented Cardiovascular Cardiovascular: Reports system reviewed and no additional complaints, except as documented Respiratory Respiratory: Reports system reviewed and no additional complaints, except as documented, Denies chest congestion and Denies cough Gastrointestinal Gastrointestinal: Reports as per HPI, Reports system reviewed and no additional complaints, except as documented, Denies abdominal pain, Denies bloating, Denies constipation and Denies cramping Genitourinary Genitourinary: Reports system reviewed and no additional complaints, except as documented, Reports abnormal vaginal bleeding, Denies hematuria, Denies change in libido, Denies nocturia, Denies dysuria and Denies vaginal discharge Musculoskeletal Musculoskeletal: Reports system reviewed and no additional complaints, except as documented Integumentary/Breasts Skin/Breast: Reports system reviewed and no additional complaints, except as documented Psychiatric Psychiatric: Denies change in libido Endocrine Endocrine: Denies change in libido Hematologic/Lymphatic Hematologic/Lymphatic: Reports as per HPI, Reports easy bleeding and Reports easy bruising PFSH All Active Problems Postcoital bleeding (Acute) Pulmonary embolism with infarction (Acute) Tubular adenoma (Acute) repeat CE in 3 yrs time Chronic GERD (Acute) Pancreatitis (Chronic) Discharge planning issues (Acute) Ambulatory dysfunction (Acute) Bilateral pulmonary embolism (Acute) Pain and swelling of left upper extremity (Acute) Lung mass (Acute) Pleuritic chest pain (Acute) Abnormal mammogram (Acute) benign tissue Shortness of breath (Acute) Polycythemia (Acute) Chest pain (Acute) Urinary urgency (Acute) Breast lump (Acute) Cannabis use disorder, mild, abuse (Acute) Suicidal ideation (Acute) PTSD (post-traumatic stress disorder) (Acute) Hypokalemia (Acute) Abnormal EKG (Acute) History of pulmonary embolus (PE) (Chronic) DVT prophylaxis (Acute) Discharge planning issues (Acute) Hypomagnesemia (Acute) Peripheral neuropathy (Acute) Chronic pulmonary embolism (Chronic) Pulmonary infarct (Acute) LUQ abdominal pain (Acute) Osteoporosis (Chronic) Lumbar vertebral fracture (Acute) Thoracic vertebral fracture (Acute) Acute hyperkalemia (Acute) VLADIMIR (acute kidney injury) (Acute) AMS (altered mental status) (Acute) Non-ST elevation PA (NSTEMI) (Acute) Rhabdomyolysis (Acute) Pneumonia (Acute) CHF (congestive heart failure) (Chronic) CAD (coronary artery disease) (Chronic) ASCUS with positive high risk HPV (Acute) Ulcerative colitis (Chronic) Pulmonary emboli (Chronic) Depression (Chronic) Anxiety (Chronic) Hypothyroidism (Chronic) Alcohol abuse (Chronic) Medical History (Updated 06/06/23 @ 13:50 by Julisa Elena DO) Hx of myocardial infarction pt. states mild PA in april 2020 Surgical History (Updated 12/13/20 @ 10:24 by Lulú Quinones RN) History of esophagogastroduodenoscopy (EGD) (~11/30/20) History of colonoscopy with polypectomy (~11/30/20) Hx of colonoscopy Hx of section Family History Father Heart disease Paternal Grandmother Cancer Maternal Grandmother Cancer Social History Smoking/Tobacco Use Status: Current every day Tobacco Type: cigarettes Years smoked: 46 Tobacco: How many years used: 46 Smoking risk assessment performed?: Yes Alcohol Intake: current Alcohol Intake frequency: holidays/special occasions only Alcohol type: wine Drug use: Daily Substance use type: marijuana Details: states last used marijuana 11.29.20 Housing: house Current gender identity: female Do you feel safe at home: Yes Female Reproductive History Menstrual Menopause type: natural Exam Narrative Exam Narrative: Patient seen alert and oriented, uncomfortable due to pelvic examinations. Const Nutritional Appearance: average body habitus Eyes General: appearance normal, both eyes and all related structures Neck Neck: normal visual inspection, trachea midline and supple Resp Effort & Inspection: normal respiratory effort, no audible wheezes and no cough Auscultation: clear to auscultation bilaterally, no rales, no rhonchi and no wheezes Cardio Palpation: normal PMI Rate: regular rate Rhythm: regular rhythm Heart Sounds: S1 normal, S2 normal and no murmurs GI Inspection: normal to inspection and non-distended Other: Exam deferred to multiple examinations in the emergency department. Currently has a moderate amount of trauma gauze that was placed in her vagina per ER physician. Results Last Vital Signs Temp 98.2 F 06/06/23 12:54 Pulse 71 06/06/23 12:54 Resp 18 06/06/23 12:54 BP 107/84 06/06/23 12:54 Pulse Ox 98 04/13/24 12:54 Labs 06/06/23 12:15 06/06/23 12:15 Labs: Laboratory Results - last 24 hr 06/06/23 12:15 WBC 14.63 H RBC 4.81 Hgb 16.0 H Hct 46.9 H MCV 98 H MCH 33.3 H MCHC 34.1 RDW 14.5 Plt Count 395 MPV 8.7 Immature Gran % 0.3 Neutrophils % 83.1 Lymphocytes % 10.8 Monocytes % 5.0 Eosinophils % 0.5 Basophils % 0.3 Nucleated RBC % 0.0 Absolute Neutrophils 12.16 H Absolute Lymphocytes 1.58 Absolute Monocytes 0.73 Absolute Eosinophils 0.07 Absolute Basophils 0.04 PT 9.9 INR 1.0 Sodium 142 Potassium 3.2 L Chloride 105 Carbon Dioxide 26.2 Anion Gap 10.8 BUN 8 Creatinine 0.9 Est GFR (CKD-EPI 2020) 70.51 Glucose 91 Calcium 9.3 Total Bilirubin 0.6 AST 17 ALT 19 Alkaline Phosphatase 74 Total Protein 7.5 Albumin 3.2 L Patient ABO/Rh A Positive Antibody Screen POSITIVE
--- NOTE | 2023-06-06 13:51 | ANES.PREOP_ITS ---
General Info Date of Service Date Performed: 06/06/23 Height: 5 ft 3 in Weight: 53.184 kg Body Mass Index (BMI): 20.7 Meds Allergies and Home Medications Allergies Allergy/AdvReac Type Severity Reaction Status Date / Time Sulfa (Sulfonamide AdvReac Intermediate headache/ Unverified 06/06/23 14:19 Antibiotics) itching Home Medication Medication Instructions Recorded aripiprazole 5 mg tablet (Abilify) 5 mg PO DAILY 06/23/18 escitalopram oxalate 20 mg tablet 20 mg PO DAILY 06/23/18 (Lexapro) enoxaparin 80 mg/0.8 mL 80 mg (0.8 mL) subcut Q12H #60 mL 08/13/19 subcutaneous syringe folic acid 1 mg tablet 1 mg PO DAILY 12/24/19 levothyroxine 100 mcg tablet 100 mcg PO DAILY 03/14/20 cyanocobalamin (vitamin B-12) 1,000 mcg PO DAILY #90 tabs 03/25/20 1,000 mcg tablet (Vitamin B-12) naltrexone 50 mg tablet 50 mg PO DAILY #30 tabs 03/25/20 nicotine 21 mg/24 hr daily 1 patch transdermal DAILY #28 ea 03/25/20 transdermal patch (Nicoderm CQ) pregabalin 150 mg capsule 150 mg PO BID 07/11/20 bisacodyl 10 mg rectal suppository 10 mg OK DAILY PRN PRN #10 ea 07/13/20 docusate sodium 100 mg capsule 100 mg PO BID #30 caps 07/13/20 (Colace) omeprazole 20 mg capsule,delayed 20 mg PO BID #60 caps 11/30/20 release lovastatin 10 mg tablet 10 mg PO DAILY 12/13/20 [facility] Active Problems Active Problems: Problem Status Onset Code Postcoital bleeding N93.0 Pulmonary embolism with infarction I26.99 Tubular adenoma D36.9 Chronic GERD K21.9 Pancreatitis K85.90 Right lower lobe pneumonia J18.1 Hypotension I95.9 Hypokalemia E87.6 Discharge planning issues Z02.9 Nausea and vomiting R11.2 Ambulatory dysfunction R26.2 Hypomagnesemia E83.42 Bilateral pulmonary embolism I26.99 Pain and swelling of left upper extremity M79.602, M79.89 Lung mass R91.8 Pleuritic chest pain R07.81 Abnormal mammogram R92.8 Shortness of breath R06.02 Polycythemia D75.1 Chest pain R07.9 Urinary urgency R39.15 Breast lump N63.0 Cannabis use disorder, mild, abuse F12.10 Suicidal ideation R45.851 PTSD (post-traumatic stress disorder) F43.10 Abdominal pain, vomiting, and diarrhea R10.9, R11.10, R19.7 Hypokalemia E87.6 Abnormal EKG R94.31 Vomiting R11.10 Pancreatitis K85.90 UTI (urinary tract infection) N39.0 Alcohol withdrawal delirium F10.231 History of pulmonary embolus (PE) Z86.711 DVT prophylaxis Z29.9 Discharge planning issues Z02.9 Hypomagnesemia E83.42 Peripheral neuropathy G62.9 Ileus K56.7 Diarrhea R19.7 Chronic pulmonary embolism I27.82 Pulmonary infarct I26.99 LUQ abdominal pain R10.12 Osteoporosis M81.0 Lumbar vertebral fracture Thoracic vertebral fracture S22.009A Acute hyperkalemia E87.5 VLADIMIR (acute kidney injury) N17.9 AMS (altered mental status) R41.82 Non-ST elevation AR (NSTEMI) I21.4 Rhabdomyolysis M62.82 Pneumonia J18.9 CHF (congestive heart failure) I50.9 CAD (coronary artery disease) I25.10 ASCUS with positive high risk HPV Ulcerative colitis K51.90 Pulmonary emboli I26.99 Depression F32.9 Anxiety F41.9 Hypothyroidism E03.9 Alcohol abuse F10.10 Medical History Medical History (Updated 06/06/23 @ 13:50 by Julisa Elena DO) Hx of myocardial infarction pt. states mild AR in april 2020 Surgical History Surgical History (Updated 12/13/20 @ 10:24 by Lulú Quinones RN) History of esophagogastroduodenoscopy (EGD) (~11/30/20) History of colonoscopy with polypectomy (~11/30/20) Hx of colonoscopy Hx of section Tobacco Smoking/Tobacco Use Status: Current every day Tobacco Type: cigarettes Smoking cigarettes per day: 10 Years smoked: 46 Alcohol Alcohol Intake: current Alcohol intake frequency: holidays/special occasions only Alcohol type: wine Substance Use Substance use: Daily Substance use type: marijuana Details: states last used marijuana 10.7.21 Vital Signs and Lab Results Vital Signs Most Recent Vital Signs in EMR: Most Recent Vital Signs Temp Pulse Resp BP Pulse Ox 36.8 C 71 18 107/84 98 06/06/23 12:54 06/06/23 12:54 06/06/23 12:54 06/06/23 12:54 06/06/23 12:54 Lab Results 06/06/23 12:15 06/06/23 12:15 Blood Type / Crossmatch: 2 Patient ABO/Rh A Positive 06/06/23 Antibody Screen POSITIVE 06/06/23 Complete Blood Count: 2 White Blood Count 14.63 10^3/uL (4.4-10.8) H 06/06/23 12:15 Red Blood Count 4.81 10^6/uL (3.93-5.22) 06/06/23 12:15 Hemoglobin 16.0 g/dL (11.2-15.7) H 06/06/23 12:15 Hematocrit 46.9 % (36.0-46.0) H 06/06/23 12:15 Platelet Count 395 10^3/uL (130-400) 06/06/23 12:15 Complete Metabolic Panel: 2 Sodium 142 mmol/L (136-145) 06/06/23 12:15 Potassium 3.2 mmol/L (3.5-5.1) L 06/06/23 12:15 Chloride 105 mmol/L (98-107) 06/06/23 12:15 Carbon Dioxide 26.2 mmol/L (21.0-32.0) 06/06/23 12:15 BUN 8 mg/dL (7-18) 06/06/23 12:15 Creatinine 0.9 mg/dL (0.55-1.02) 06/06/23 12:15 Est GFR (CKD-EPI 2020) 70.51 (mL/min/1.73m2) 06/06/23 12:15 Calcium 9.3 mg/dL (8.5-10.1) 06/06/23 12:15 Albumin 3.2 g/dL (3.4-5.0) L 06/06/23 12:15 Glucose 91 mg/dL (74-106) 06/06/23 12:15 Liver Function Panel: 2 Alanine Aminotransferase (ALT/SGPT) 19 U/L (14-59) 06/06/23 12: 15 Aspartate Amino Transf (AST/SGOT) 17 U/L (15-37) 06/06/23 12:15 Coagulation Panel: 2 INR International Normalized Ratio 1.0 (0.9-1.1) 06/06/23 12:1 5 Prothrombin Time 9.9 sec (9.1-11.1) 06/06/23 12:15 Cardiac Panel: 2 No Data to Display Arterial Blood Gas: 2 No Data to Display Venous Blood Gas: 2 No Data to Display Pancreas Panel: 2 No Data to Display Thyroid Panel: 2 No Data to Display Infectious Disease: 2 No Data to Display Blood Cultures: 2 No Data to Display Toxicology Panel: 2 No Data to Display Imaging and Studies Imaging and Studies Study information below may be from another EMR and interpreted by another provider. Please see original notes in EMR for more complete details. EKG Summary: 10/12/2020: Exam: Resting ECG Reason for Exam: preOp Patient Location: O HR:67 bpm ECG Measurements Heart Rate 67 AXIS OK 149 P 64 QRSd 73 QRS 45 QT 401 T32 QTc 424 Conclusion Sinus rhythm...normal P axis, V-rate 60- 99 Stress Test Summary: 11/19/2020: Stress ECG Conclusion 1. Resting electrocardiogram showed nondiagnostic anterior ST-T abnormalities 2. The patient exercised on the Jose protocol and completed a workload of 7 METS, limited by shortness of breath 3. Normal heart rate and blood pressure response to exercise. The patient achieved 86% of predicted heart rate for age 4. Electrocardiographically there was no evidence of myocardial ischemia 5. There was a 4 beat run of nonsustained ventricular tachycardia seen in early recovery Echocardiogram Summary: 03/14/2020: Conclusion Left Ventricle : The left ventricle is normal size. The left ventricular systolic function is normal. The left ventricular ejection fraction is within the normal range. There is normal left ventricular wall thickness. There is normal LV segmental wall motion. The left ventricular diastolic function is normal. LVEF is 50%. Right Ventricle : The right ventricle is normal size. The right ventricular systolic function is normal. Estimated RVSP is 21 mmHg. Atria : The left atrium size is normal. The right atrium size is normal. Valves: There are no hemodynamically significant valvular lesions. Please see remainder of study for further details. Compared to study from 08/30/2019, there is no significant change. Anesthesia Assessment and Plan Anesthesia History Personal History: No History of Anesthesia Complications Family History: No Family History of Anesthesia Complications Exercise Tolerance Exercise Tolerance: Metabolic Equivalents>4 Pertinent Negatives Pertinent Negatives: No Symptoms of GERD and No History of CVA/TIA Cardiac & Pulmonary Exam Cardiac Exam: Normal S1/S2 Heart Sounds Pulmonary Exam: Clear Bilateral Breath Sounds Implantable Cardiac Device Does patient have a Pacemaker or an ICD?: No Airway Exam Known Difficult Airway: Yes Mallampati Class: 1 Mouth Opening: Normal (> 3cm) Thyromental Distance: Greater than 3 cm Neck Range of Motion: Full ROM Neck Circumference: Normal Teeth Condition: Normal Dentition ASA Classification ASA Score: ASA 3 Emergency Case?: Yes NPO Status NPO Status: NPO Clears >2 hours, Solids >8 hours Anesthesia Plan Resuscitation Status: Full Code Anesthesia Technique: General Anesthesia Airway Planned: Natural Airway Monitors Used: Standard Monitors
[2023-06-06 13:52] VITALS: BMI 20.7
--- NOTE | 2023-06-06 14:36 | ED.GENADUL_ITS ---
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: Postcoital bleeding, Anticoagulant long-term use Attending Provider: Julisa Elena Primary Care Provider: Bethanie Foss ED Provider: Tom Vallejo Home Meds and New Rx's Prescriptions: No Action lovastatin 10 mg tablet 10 mg PO DAILY folic acid 1 mg tablet 1 mg PO DAILY Patient Comments: TK 1 T PO D pregabalin 150 mg capsule 150 mg PO BID Patient Comments: TAKE ONE CAPSULE BY MOUTH TWICE DAILY bisacodyl 10 mg Suppository 10 mg CA DAILY PRN PRNQty: 10 0RF docusate sodium [Colace] 100 mg Capsule 100 mg PO BID Qty: 30 0RF escitalopram oxalate [Lexapro] 20 mg Tablet 20 mg PO DAILY aripiprazole [Abilify] 5 mg Tablet 5 mg PO DAILY enoxaparin 80 mg/0.8 mL Syringe 80 mg subcut Q12H Qty: 60 0RF levothyroxine 100 mcg tablet 100 mcg PO DAILY Patient Comments: TAKE 1 TABLET BY MOUTH DAILY naltrexone 50 mg tablet 50 mg PO DAILY Qty: 30 2RF nicotine [Nicoderm CQ] 21 mg/24 hr patch 24 hour 1 patch transdermal DAILY Qty: 28 2RF cyanocobalamin (vitamin B-12) [Vitamin B-12] 1,000 mcg tablet 1,000 mcg PO DAILY Qty: 90 3RF omeprazole 20 mg capsule,delayed release(DR/EC) 20 mg PO BID Qty: 60 13RF Patient Comments: TK 1 C PO D 30 MINUTES BEFORE FIRST MEAL HPI General Date/Time Provider Initiated Documentation: 06/06/23 12:17 . Limitations to Documentation: no limitations . Information obtained by: patient . HPI Narrative: 68-year-old female with past medical history of clotting disorder, pulmonary embolism, on chronic anticoagulation presents for evaluation of vaginal bleeding. She reports that symptoms started last night after intercourse. She reports that she was having normal intercourse with a new partner. She did not feel that there was any significant trauma at that time. No known penile piercings or other objects inserted into the vagina. The patient reports that bleeding started overnight. When she woke up this morning she had a large gush of blood and has been passing clots. She was seen by urgent care and referred to the emergency department for further evaluation. Related Data Home Medications Medication Instructions Recorded Confirmed aripiprazole 5 mg tablet (Abilify) 5 mg PO DAILY 06/23/18 12/17/20 escitalopram oxalate 20 mg tablet 20 mg PO DAILY 06/23/18 12/17/20 (Lexapro) enoxaparin 80 mg/0.8 mL 80 mg (0.8 mL) subcut Q12H #60 mL 08/13/19 12/17/20 subcutaneous syringe folic acid 1 mg tablet 1 mg PO DAILY 12/24/19 12/17/20 levothyroxine 100 mcg tablet 100 mcg PO DAILY 03/14/20 12/17/20 cyanocobalamin (vitamin B-12) 1,000 mcg PO DAILY #90 tabs 03/25/20 12/17/20 1,000 mcg tablet (Vitamin B-12) naltrexone 50 mg tablet 50 mg PO DAILY #30 tabs 03/25/20 12/17/20 nicotine 21 mg/24 hr daily 1 patch transdermal DAILY #28 ea 03/25/20 12/17/20 transdermal patch (Nicoderm CQ) pregabalin 150 mg capsule 150 mg PO BID 07/11/20 12/17/20 bisacodyl 10 mg rectal suppository 10 mg CA DAILY PRN PRN #10 ea 07/13/20 12/17/20 docusate sodium 100 mg capsule 100 mg PO BID #30 caps 07/13/20 12/17/20 (Colace) omeprazole 20 mg capsule,delayed 20 mg PO BID #60 caps 11/30/20 12/17/20 release lovastatin 10 mg tablet 10 mg PO DAILY 12/13/20 12/17/20 Previous Rx's Medication Instructions Recorded enoxaparin 80 mg/0.8 mL 80 mg (0.8 mL) subcut Q12H #60 mL 08/13/19 subcutaneous syringe cyanocobalamin (vitamin B-12) 1,000 mcg PO DAILY #90 tabs 03/25/20 1,000 mcg tablet (Vitamin B-12) naltrexone 50 mg tablet 50 mg PO DAILY #30 tabs 03/25/20 nicotine 21 mg/24 hr daily 1 patch transdermal DAILY #28 ea 03/25/20 transdermal patch (Nicoderm CQ) bisacodyl 10 mg rectal suppository 10 mg CA DAILY PRN PRN #10 ea 07/13/20 docusate sodium 100 mg capsule 100 mg PO BID #30 caps 07/13/20 (Colace) omeprazole 20 mg capsule,delayed 20 mg PO BID #60 caps 11/30/20 release Allergies Allergy/AdvReac Type Severity Reaction Status Date / Time Sulfa (Sulfonamide AdvReac Intermediate headache/ Unverified 06/06/23 14:19 Antibiotics) itching 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 Exam Narrative Exam Narrative: Review of Systems: All systems reviewed & are unremarkable except as noted in HPI and below Well-developed, no acute distress NCAT PERRL, normal conjunctiva RRR, slight hypotension Unlabored respiratory effort, and clear bilaterally Nondistended abdomen soft nontender exam performed with small animal caretaker, there are significant large clots, golf ball size in the vaginal vault, these were removed, I do not see any lacerations or injuries on the external perineum, she has significant tenderness around the introitus and significant tenderness with insertion of the speculum. I am able to visualize the cervix, does not appear abnormal, there are no masses or friability, there is blood pooling in the vaginal vault, I am unable to determine where the blood is pooling from. Extremities w/o deformity, no cyanosis, no edema No rashes or lesions. no focal neurologic deficits Appropriate mood and affect Course Vital Signs Vital signs: Vital Signs Temperature 36.8 C 06/06/23 12:54 Pulse 71 06/06/23 12:54 Respiratory Rate 18 06/06/23 12:54 Blood Pressure 107/84 06/06/23 12:54 Pulse Oximetry 98 06/06/23 12:54 Temperature 36.8 C 06/06/23 12:54 Temperature Source Temporal Artery Scan 06/06/23 12:54 Pulse 71 06/06/23 12:54 Respiratory Rate 18 06/06/23 12:54 Respiratory Effort Normal, Non-Labored 06/06/23 12:57 Blood Pressure 107/84 06/06/23 12:54 Blood Pressure Position Supine 06/06/23 12:54 Pulse Oximetry 98 06/06/23 12:54 Oxygen Delivery Method Room Air 06/06/23 12:54 Oxygen Flow Rate 0 06/06/23 12:54 Pain Level 8 06/06/23 12:57 Lab/Test Results Lab/Test Results: Laboratory Tests Range/Units 06/06/23 12:15 WBC (4.4-10.8) 10^3/uL 14.63 H RBC (3.93-5.22) 10^6/uL 4.81 Hgb (11.2-15.7) g/dL 16.0 H Hct (36.0-46.0) % 46.9 H MCV (80-95) fL 98 H MCH (27.0-33.0) pg 33.3 H MCHC (32.0-36.0) % 34.1 RDW (11.7-14.6) % 14.5 Plt Count (130-400) 10^3/uL 395 MPV (8.0-11.0) fL 8.7 Immature Gran % 0.3 Neutrophils % 83.1 Lymphocytes % 10.8 Monocytes % 5.0 Eosinophils % 0.5 Basophils % 0.3 Nucleated RBC % (0.0-0.3) % 0.0 Absolute Neutrophils (1.2-6.7) 10^3/uL 12.16 H Absolute Lymphocytes (1.2-3.4) 10^3/uL 1.58 Absolute Monocytes (0.1-0.8) 10^3/uL 0.73 Absolute Eosinophils (0.0-0.7) 10^3/uL 0.07 Absolute Basophils (0.0-0.2) 10^3/uL 0.04 PT (9.1-11.1) sec 9.9 INR (0.9-1.1) 1.0 Sodium (136-145) mmol/L 142 Potassium (3.5-5.1) mmol/L 3.2 L Chloride (98-107) mmol/L 105 Carbon Dioxide (21.0-32.0) mmol/L 26.2 Anion Gap (3-11) mmol/L 10.8 BUN (7-18) mg/dL 8 Creatinine (0.55-1.02) mg/dL 0.9 Est GFR (CKD-EPI 2020) (mL/min/1.73m2) 70.51 Glucose (74-106) mg/dL 91 Calcium (8.5-10.1) mg/dL 9.3 Total Bilirubin (0.2-1.0) mg/dL 0.6 AST (15-37) U/L 17 ALT (14-59) U/L 19 Alkaline Phosphatase (46-116) U/L 74 Total Protein (6.4-8.2) g/dL 7.5 Albumin (3.4-5.0) g/dL 3.2 L Patient ABO/Rh A Positive Antibody Screen POSITIVE Medical Decision Making Emergent evaluation of postcoital bleeding. The patient does not have any signs or symptoms of malignancy or other lesions on examination. She is continuing to have active bleeding, likely because she is on Eliquis. Her blood pressure is soft. I have attempted to locate the source of the bleeding, but I cannot. Packing with Surgicel was placed in the vagina. This did not help, on reevaluation, the patient had partially soaked a Chux pad and had clots the size of a golf ball in her vagina. These were again removed, blood was continuing to pull. I considered TXA, but given her clotting disorder I feel systemic TXA might be dangerous. Considered TXA soaked gauze, BUT I was able to get a quick clot gauze and packed this into the vagina. I discussed with FACE BURLER who will take the patient to the operating room for definitive source control. Medical Records Medical records reviewed: Yes I reviewed the patient's medical records. Lab Data Lab results reviewed: Yes I reviewed the patient's lab results. Quality:SDOH Health Related Social Needs: No Data to Display Critical Care Time Critical Care Time Critical Care Time: Yes Total Critical Care Time: 35 Attestation: CRITICAL CARE Upon my evaluation, this patient had a high probability of imminent or life- threatening deterioration due to active bleeding which required my direct attention, intervention, and personal management. I have personally provided 35 minutes of critical care time exclusive of time spent on separately billable procedures. Time includes review of laboratory data, radiology results, discussion with consultants, and monitoring for potential decompensation. Interventions were performed as documented above PFSH All Active Problems Anticoagulant long-term use (Acute) Postcoital bleeding (Acute) Pulmonary embolism with infarction (Acute) Tubular adenoma (Acute) repeat CE in 3 yrs time Chronic GERD (Acute) Pancreatitis (Chronic) Discharge planning issues (Acute) Ambulatory dysfunction (Acute) Bilateral pulmonary embolism (Acute) Pain and swelling of left upper extremity (Acute) Lung mass (Acute) Pleuritic chest pain (Acute) Abnormal mammogram (Acute) benign tissue Shortness of breath (Acute) Polycythemia (Acute) Chest pain (Acute) Urinary urgency (Acute) Breast lump (Acute) Cannabis use disorder, mild, abuse (Acute) Suicidal ideation (Acute) PTSD (post-traumatic stress disorder) (Acute) Hypokalemia (Acute) Abnormal EKG (Acute) History of pulmonary embolus (PE) (Chronic) DVT prophylaxis (Acute) Discharge planning issues (Acute) Hypomagnesemia (Acute) Peripheral neuropathy (Acute) Chronic pulmonary embolism (Chronic) Pulmonary infarct (Acute) LUQ abdominal pain (Acute) Osteoporosis (Chronic) Lumbar vertebral fracture (Acute) Thoracic vertebral fracture (Acute) Acute hyperkalemia (Acute) VLADIMIR (acute kidney injury) (Acute) AMS (altered mental status) (Acute) Non-ST elevation CA (NSTEMI) (Acute) Rhabdomyolysis (Acute) Pneumonia (Acute) CHF (congestive heart failure) (Chronic) CAD (coronary artery disease) (Chronic) ASCUS with positive high risk HPV (Acute) Ulcerative colitis (Chronic) Pulmonary emboli (Chronic) Depression (Chronic) Anxiety (Chronic) Hypothyroidism (Chronic) Alcohol abuse (Chronic) Medical History Hx of myocardial infarction pt. states mild CA in april 2020 Surgical History History of esophagogastroduodenoscopy (EGD) (~11/30/20) History of colonoscopy with polypectomy (~11/30/20) Hx of colonoscopy Hx of section Family History Father Heart disease Paternal Grandmother Cancer Maternal Grandmother Cancer Social History Smoking/Tobacco Use Status: Current every day Tobacco Type: cigarettes Years smoked: 46 Tobacco: How many years used: 46 Smoking risk assessment performed?: Yes Alcohol Intake: current Alcohol Intake frequency: holidays/special occasions only Alcohol type: wine Drug use: Daily Substance use type: marijuana Details: states last used marijuana 11.29.20 Housing: house Current gender identity: female Do you feel safe at home: Yes Female Reproductive History Menstrual Menopause type: natural
--- NOTE | 2023-06-06 15:45 | ROE_ITS ---
Date of service: 06/06/23 Time of Service: 15:45 Operative Note Operative Note DATE OF PROCEDURE: 06/06/23 PRE-OP DIAGNOSIS: Postcoital vaginal bleeding POST-OP DIAGNOSIS: same (Vaginal laceration) PROCEDURE: Repair of vaginal laceration SURGEON: Julisa Elena ANESTHESIA TYPE: General:No Airway Refer to Anesthesia Record ESTIMATED BLOOD LOSS: 50 COMPLICATIONS: None Patient was transported to: [facility] Patient's condition: stable Indications: Vaginal bleeding after intercourse Findings: 2 cm superficial vaginal laceration at the right vaginal sidewall to the cervical vaginal interface. Normal-appearing cervix. Atrophic vaginal mucosa. Procedure Description: After full informed consent was obtained, patient was taken the operating suite with an IV running. Monitored anesthesia care performed. She was then placed in the modified dorsolithotomy position in yellowfin stirrups and prepped and draped in the usual sterile fashion. Her bladder was drained for approximately 50 cc of concentrated urine. At this point, with appropriate analgesia, speculum was placed into the vaginal vault. The cervix was identified and appeared normal. There was noted to be a superficial right vaginal sidewall laceration ending at the cervical vaginal interface. This area was suture- ligated with 3-0 Vicryl suture in a running locked fashion and hemostasis achieved. In light of the fact that the patient is on Eliquis, Monsel solution placed over the suture line. She will resume her normal Eliquis dosing tomorrow. Patient tolerated the procedure without difficulty. EBL: 50 mL Findings: Vaginal sidewall laceration, repaired, hemostatic. Pathology: None Complications: None apparent Fluids: Crystalloid per anesthesia.
[2023-06-06 16:00] VITALS: BP 116/60; PULSE 60; RESP 18; TEMP 36.1; O2SAT 100
[2023-06-06 16:05] VITALS: BP 116/60; PULSE 60; RESP 18; TEMP 36.1; O2SAT 100
[2023-06-06] MEDS: Acetaminophen 325 MG TAB 650 MG PO (16:28)
[2023-06-06 16:30] VITALS: BP 86/59; PULSE 62; RESP 18; TEMP 36.6; O2SAT 100
--- NOTE | 2023-06-07 08:34 | W.ANESPOSTOP ---
Postoperative Evaluation Date, Time and Location Date Performed: 06/06/23 Time Performed: 16:30 Patient Location: Med/Surg Vital Signs Most Recent Imported Vital Signs: Most Recent Vital Signs Temp Pulse Resp BP Pulse Ox 36.6 C 62 18 86/59 L 100 06/06/23 16:30 06/06/23 16:30 06/06/23 16:30 06/06/23 16:30 06/06/23 16:30 Pain Score Most Recent Pain Score: Most Recent Pain Score Pain Level 6 06/06/23 16:30 Assessment Mental Status: Awake (Alert & Oriented to Patient Baseline) Airway and Respiratory Function: Patent airway with normal (patient baseline) respiratory exam Cardiovascular Function: Hemodynamically Stable Hydration Status: Adequately Hydrated Nausea & Vomiting: No Nausea or Vomiting Pain: Pain is Moderate or Severe Postoperative Pain Management: Ongoing pain, patient will be managed as an inpatient Peripheral Nerve Block: Patient did not receive a nerve block
== END 2023-06-06 18:00 | disposition home or self-care (01) ==
LOC: ER 13:44 → SUR 14:39 → MS 15:59
PROVIDERS: Emergency Provider Emergency Medicine; PCP Nurse Practitioner Family; Visit Provider Obstetrics & Gynecology
PROC: (CPT 57200; principal; 2023-06-06 14:25)
DX: N93.0 Postcoital and contact bleeding (principal); I25.2 Old myocardial infarction; Z79.01 Long term (current) use of anticoagulants; I27.82 Chronic pulmonary embolism; K21.9 Gastro-esophageal reflux disease without esophagitis; S31.41XA Laceration without foreign body of vagina and vulva, initial encounter; X58.XXXA Exposure to other specified factors, initial encounter
CPT/HCPCS: 57200; 80053; 86850; 86900; 86901; 85025; 85610; 86870; J2270; J2405; J2704

== ENCOUNTER 2023-06-25 09:05 | Outpatient (REF) | payer MEDICARE, MEDICAID, SELFPAY ==
[2023-06-26 14:42] LABS: Chlamydia Result Negative (Negative); GC Result Negative (Negative)
== END 2023-06-25 09:06 | disposition home or self-care (01) ==
LOC: LBN 09:05
PROVIDERS: PCP Nurse Practitioner Family; Visit Provider Obstetrics & Gynecology
DX: S31.41XD Laceration without foreign body of vagina and vulva, subsequent encounter; X58.XXXD Exposure to other specified factors, subsequent encounter; Z20.2 Contact with and (suspected) exposure to infections with a predominantly sexual mode of transmission; N95.2 Postmenopausal atrophic vaginitis; Z72.51 High risk heterosexual behavior
CPT/HCPCS: 87491; 87591; 87480; 87510; 87660

== ENCOUNTER 2023-12-08 14:49 | Outpatient (REF) | payer MEDICARE, MEDICAID, SELFPAY ==
--- OUTSIDE RECORDS SUMMARY | 2023-12-08 14:51 | XMS_ITS | Clinical Summary ---
Author Organization [facility] Address [address] [facility] [place] [address] Care Team Providers Care Fountain Attendant Name Role Phone Henrietta Nancy DREA Primary Care Provider [phone] Allergies Active Allergy Reactions Criticality Noted Date Comments Sulfa (Sulfonamide Antibiotics) Other (See Comments) Medium 11/12/2018 Caused chills and sweating Medications Medication Sig Dispensed Refills Start Date End Date Status ARIPiprazole (ABILIFY) 5 mg Tablet Daily 06/23/2018 Act leeann escitalopram (LEXAPRO) 20 mg Tablet take 1 tablet by mouth every morning 0 08/23/2018 Active levothyroxine (SYNTHROID) 50 mcg Tablet Take 100 mcg by mouth Daily. Active cyclobenzaprine (FLEXERIL) 10 mg Tablet TK 1 T PO HS PRN 1 01/14/2019 Active cyanocobalamin, Vitamin B-12, (Vitamin B-12) 1,000 mcg Tablet TAKE 1 TABLET BY MOUTH DAILY 03/25/2020 Active pregabalin (LYRICA) 150 mg Capsule 150 mg 2 times daily. 06/10/2020 Active omeprazole 20 mg Tablet, Delayed Release (E.C.) Take by mouth. BID Active naltrexone (Depade) 50 mg Tablet Take 50 mg by mouth daily. Active lovastatin (MEVACOR) 20 mg Tablet Take 20 mg by mouth nightly. Active albuteroL 90 mcg/actuation HFA Aerosol Inhaler Inhale 2 puffs into the lungs every 4 hours as needed for Wheezing. Use with spacer Active folic acid (Folvite) 1 mg Tablet TAKE 1 TABLET BY MOUTH DAILY 90 tablet 03/28/2021 Active Active Problems Problem Noted Date Diagnosed Date Compression fracture of lumbar vertebra, non-tra umatic 08/31/2020 Alcohol-induced acute pancreatitis 06/14/2020 Other pulmonary embolism without acute cor pulmo nale 11/11/2019 Breast mass 11/11/2019 Hypothyroidism 11/11/2019 Folic acid deficiency 11/11/2019 Lung mass 03/02/2019 Family History Medical History Relation Comments Breast Cancer Neg Hx Social History Tobacco Use Types Packs/Day Years Used Date Smoking Tobacco: Every Day Cigarettes 0.5 40 Smokeless Tobacco: Never Sex and Gender Information Value Date Recorded Sex Assigned at Not on file Gender Identity Not on file Sexual Orientation Not on file Last Filed Vital Signs Vital Sign Reading Time Taken Comments Blood Pressure 105/67 06/13/2020 10:28 AM EDT Pulse 80 06/13/2020 10:28 AM EDT Temperature 37.2 ??C (99 ??F) 06/13/2020 10:28 AM EDT Respiratory Rate 18 11/08/2019 10:10 AM EDT Oxygen Saturation 100% 06/13/2020 10:28 AM EDT Inhaled Oxygen Concentration - - Weight 75.8 kg (167 lb 1.7 oz) 06/13/2020 10:28 AM EDT Height 163.3 cm (5' 4.29) 06/13/2020 10:28 AM E DT Body Mass Index 28.43 06/13/2020 10:28 AM EDT Plan of Treatment Health Maintenance Due Date Last Done Comments CT Colonography 1957 Colonoscopy 1957 Colorectal Cancer Screening 1957 FIT DNA 1957 FIT 1957 Sigmoidoscopy (10 year) with FIT yearly 1957 Sigmoidoscopy 1957 Pneumoccocal Vaccine: 65+ (1 of 2 - PCV) 1963 Hepatitis C Screening 1975 Tetanus/Diphtheria/Pertussis Vaccines (1 - Tdap) 1976 HPV test 1987 PAP Smear 1987 Breast Cancer Share Decision Needed 1997 Breast Cancer screening 1997 Zoster vaccine (1 of 2) 2007 Advance Directive 2012 Bone Density Scan 2022 Covid-19 Vaccine (1 - season) 2023 Influenza (Flu) vaccine (1 o f 1 - Influenza standard series) 10/25/2023 Diabetes Screening (HgbA1C or Glucose) Discontinued , 11/12/2018 Medical Devices Implanted Type Area Feed Research Aide Device Identifier Shelf Expiration Date Model / Serial / Lot Breast Clip-03/30/2019 Implanted:Qty: 1 on 03/30/2019 by Kenzie Cevallos MD Breast Clip Left: Breast [id number] / / [id number] Description:ANIA Procedures Procedure Name Priority Date/Time Associated Diagnosis Comments COMPREHENSIVE METABOLIC PANEL Routine 06/13/2020 12:37 PM EDT Necrotizing granulomatous inflammation of lung from Last 3 Months or Most Recently Relevant to Health Maintenance Results * (ABNORMAL) Comprehensive metabolic panel (non-fasting) (06/13/2020 12:37 PM EDT) Glucose 94 65 - 199 mg/dL [facility] Comment:Diabetes: >=200 mg/d L plus symptoms Blood Urea Nitrogen 9 8 - 18 mg/dL [facility] Creatinine 0.67(L) 0.70 - 1.20 mg/dL [facility] Sodium 141 135 - 145 mmol/L [facility] Potassium 3.6 3.5 - 5.0 mmol/L [facility] Comment: Please note: ??Patients with WBC >100,000 may have falsely elevated Potassium levels. ??For accurate Potassium quantification in these patients send serum separator tube (gold top) for subsequent determinations. ??Contact the Clinical Chemistry Laboratory if there are any questions. Chloride 108(H) 98 - 107 mmol/L [facility] Carbon Dioxide 24 22 - 31 mmol/L [facility] Anion Gap 9 5 - 15 mmol/L [facility] Calcium 9.7 8.5 - 10.5 mg/dL [facility] Protein, Total 6.6 6.1 - 8.0 gm/dL [facility] Albumin 4.2 3.2 - 5.2 gm/dL [facility] Aspartate Aminotransferase 15 0 - 30 unit/L [facility] Alanine Aminotransferase 12 0 - 30 unit/L [facility] Alkaline Phosphatase 69 35 - 105 unit/L [facility] Bilirubin, Total 0.3 0.2 - 1.3 mg/dL [facility] Est Glomerular Filtration Rate 94 >=60 mL/min/1. 73 m?? [facility] Comment: This patient? s estimated glomerular filtration rate (eGFR) is between 94 mL/min/1.73 m2 (patients with less muscle mass) and 108 mL/min/1.73 m2 (patients with more muscle mass) as determined by the CKD-EPI equation. Assessment of eGFR is not appropriate when creatinine concentrations are rapidly changing. For clinical decisions where creatinine clearance will affect therapy, a 24-hour urine creatinine clearance may be advised. Assignment of CKD stage 1 - 5 for patients with an eGFR near the transition point between stages may be based on clinical assessment of muscle mass and symptoms in addition to eGFR. Blood specimen (specimen) 06/13/2020 12:37 PM EDT 06/13/2020 12:49 PM EDT Narrative Resulting Agency Comment Spec In Lab Cameron Spence MD CHEMISTRY ORDERABLES [facility] [place] [address] from Last 3 Months or Most Recently Relevant to Health Maintenance Advance Directives Documents on File Type Date Recorded Patient Corporate Compliance Director Expl anation Personal Corporate Compliance Director 11/24/2018 4:09 PM abhi [email or web address] * Full Code (Latest Code Status on File) Date Activated Date Inactivated Comments 03/07/2019 8:46 AM 03/08/2019 4:42 AM Question Answer Comments Does patient have capacity to make decision: Yes Care Teams Fountain Attendant Relationship Specialty Start Date End Date Nancy Shrestha, DREA [address] [place] [address] PCP - General Family Medicine 10/04/20
--- OUTSIDE RECORDS SUMMARY | 2023-12-08 14:52 | XMS_ITS | Encounter Summary ---
[place] [address] Care Team Providers Care Clipper Automatic Name Role Phone Nancy Shrestha APRN Primary Care Provider Encounter Details Date Type Department Care Team (Late st Contact Info) Description 12/21/2020 [place] [phone] Yael Villagomez Social History Tobacco Use Types Packs/Day Years Used Date Smoking Tobacco: Every Day Cigarettes 0.5 40 Smokeless Tobacco: Never Sex and Gender Information Value Date Recorded Sex Assigned at Not on file Gender Identity Not on file Sexual Orientation Not on file documented as of this encounter Plan of Treatment Not on file documented as of this encounter Visit Diagnoses Not on filedocumented in this encounter Care Teams Clipper Automatic Relationship Specialty Start Date End Date Nancy Shrestha APRN [address] [place], [place] [id number] PCP - General Family Medicine 10/04/20 documented as of this encounter
--- OUTSIDE RECORDS SUMMARY | 2023-12-08 14:52 | XMS_ITS | Encounter Summary ---
Author Organization [facility] Address [facility] [place] [address] Care Team Providers Care Preschool Teacher'S Assistant Name Role Phone Nancy Shrestha APRN Primary Care Provider [phone] Reason for Visit * Reason Comments Medication Refill Encounter Details Date Type Department Care Team (Late st Contact Info) Description 03/27/2021 Refill Hematology [place] [address] Morenita Ingram MD [facility] [address] HEMATOLOGY [place] [address] Social History Tobacco Use Types Packs/Day Years [...] on filedocumented in this encounter Care Teams Preschool Teacher'S Assistant Relationship Specialty Start Date End Date Nancy Shrestha APRN [address] [place] [address] PCP - General Family Medicine 10/04/20 documented as of this encounter
--- OUTSIDE RECORDS SUMMARY | 2023-12-08 14:52 | XMS_ITS | Encounter Summary ---
[place] [address] Care Team Providers Care Water Pollution Control Technician Name Role Phone Nancy Shrestha APRN Primary Care Provider Encounter Details Date Type Department Care Team (Late st Contact Info) Description 12/20/2020 [place] [phone] Yael Villagomez Social History Tobacco Use Types [...] on filedocumented in this encounter Care Teams Water Pollution Control Technician Relationship Specialty Start Date End Date Nancy Shrestha APRN [address] [place], [place] [address] PCP - General Family Medicine 10/04/20 documented as of this encounter
--- OUTSIDE RECORDS SUMMARY | 2023-12-08 14:52 | XMS_ITS | Encounter Summary ---
Author Organization [facility] Address [facility] [place] [address] Care Team Providers Care Manager Valuation Name Role Phone Nancy Shrestha APRN Primary Care Provider [phone] Encounter Details Date Type Department Care Team (Late st Contact Info) Description 01/09/2021 Orders Only [place] [address] Morenita Ingram MD [facility] [place] [address] Recurrent pulmonary embolism (Primary Dx) Social History Tobacco Use Types Packs/Day Years Used Date Smoking Tobacco: Every Day Cigarettes 0.5 40 Smokeless Tobacco: Never Sex and Gender Information Value Date Recorded Sex Assigned at Not on file Gender Identity Not on file Sexual Orientation Not on file documented as of this encounter Progress Notes * Morenita Ingram MD - 01/09/2021 4:36 PM EST I called the patient. I discussed with Dr. Spence and his concern of malignancy is low. He agreed that I can switch her anticoagulant to DOAC. We will transition her to apixaban 5 mg PO BID. She can start apixaban at the next scheduled dose of enoxaparin and she can stop enoxaparin. I sent a script of apixaban 5 mg PO BID for 30 day supply to local pharmacy. If the co pay is too high, we can look into assistance program. I asked her to call us back and letus know. If she tolerates apixaban well, I will ask her PCP to tale over future refill. She will need to be on lifelong anticoagulation. Morenita Ingram MD documented in this encounter Plan of Treatment Not on file documented as of this encounter Visit Diagnoses Diagnosis Recurrent pulmonary embolism- Primary Other pulmonary embolism and infarction documented in this encounter Care Teams Manager Valuation Relationship Specialty Start Date End Date Nancy Shrestha, ALIGNER [employer] [address] [place] [address] PCP - General Family Medicine 10/04/20 documented as of this encounter
--- OUTSIDE RECORDS SUMMARY | 2023-12-08 14:52 | XMS_ITS | Encounter Summary ---
Author Organization [facility] Address [facility] [place] [address] Care Team Providers Care Imaging Administrator Name Role Phone Genaro Bonilla DNP Primary Care Provider [phone] Encounter Details Date Type Department Care Team (Late st Contact Info) Description 08/31/2020 Telephone [place] [address] Cameron Spence MD [facility] [place] [address] Social History Tobacco Use Types Packs/Day Years Used Date Smoking Tobacco: Every Day Cigarettes 0.5 40 Smokeless Tobacco: Never Sex and Gender Information Value Date Recorded Sex Assigned at Not on file Gender Identity Not on file Sexual Orientation Not on file documented as of this encounter Miscellaneous Notes * Telephone Encounter - Cameron Spence MD - 08/31/2020 1:45 PM EDT Pulmonary Phone Note I reached Ms. Aparicio on the telephone. We reviewed CT scan from June. We discussed that difficult tocomment on the stability of the nodule/mass her right lung base with intercurrent pneumonia. I recommend a repeat CT scan about 12 weeks after this initial [address] us in about mid September.She will be losing phone service due to financial hardship tonight and will not have phone access into September 12 again. I asked her to call [facility] and schedule the CT scan today and if she is not able todo that to call our office back immediately and we can take the necessary steps to get her study scheduled. Cameron Spence MD, PhD Staff Physician Pulmonary and Critical Care Medicine 1:45 PM 08/31/2020 documented in this encounter Plan of Treatment Not on file documented as of this encounter Visit Diagnoses Not on filedocumented in this encounter Care Teams Imaging Administrator Relationship Specialty Start Date End Date Genaro Bonilla DNP PCP - General Family Medicine 11/12/18 10/03/20 documented as of this encounter
--- OUTSIDE RECORDS SUMMARY | 2023-12-08 14:52 | XMS_ITS | Encounter Summary ---
Author Organization [facility] [place] [address] Care Team Providers Care Germination Testing Manager Name Role Phone Genaro Bonilla DNP Primary Care Provider Encounter Details Date Type Department Care Team (Latest Contact Info) Description 11/08/2019 11:06 AM EDT - 11/08/2019 11:59 PM EDT Hospital Encounter [place] [address] Polycythemia; Recurrent pulmonary embolism Discharge Disposition: Home Social History Tobacco Use Types Packs/Day Years Used Date Smoking Tobacco: Former Cigarettes 0.5 40 0 10/18/1978 - 10/18/2018 Smokeless Tobacco: Never Sex and Gender Information Value Date Recorded Sex Assigned at Not on file Gender Identity Not on file Sexual Orientation Not on file documented as of this encounter Medications at Time of Discharge Medication Sig Dispensed Refills Start Date End Date levothyroxine (SYNTHROID) 50 mcg Tablet Take 100 mcg by mouth Daily. cyclobenzaprine (FLEXERIL) 10 mg Tablet TK 1 T PO HS PRN 1 01/14/2019 ARIPiprazole (ABILIFY) 5 mg Tablet Daily 06/23/2018 escitalopram (LEXAPRO) 20 mg Tablet take 1 tablet by mouth every morning 0 08/23/2018 DAILY-KITTY Tablet take 1 tablet by mouth once daily 0 09/08/2018 06/13/2020 predniSONE (DELTASONE) 20 mg Tablet 40 mg by mouth daily x 7 days, then 30 mg by mouth daily x 7 days, then 20 mg by mouth x 7 days, then 10 mg by mouth x 7 days, then stop 36 tablet 11/23/2018 06/13/2020 HYDROcodone-acetaminoph en 10-300 mg/15 mL Solution 1 tablet. 10/09/2018 06/13/2020 enoxaparin (LOVENOX) 40 mg/0.4 mL Syringe Q12H 10/09/2018 12/04/2019 ibuprofen (ADVIL;MOTRIN) 600 mg Tablet Every 6 hours, as needed PRN For Pain 10/07/2018 06/13/2020 CIS Free Text Med - Albuterol 90 MC-2 Puff(s), Inh, PRN 09/09/2006 06/13/2020 azithromycin (ZITHROMAX) 250 mg tablet Taper/Titrate, POTaper/Titrate, PO. Take 2 (TWO)Tablet(s) (500 MG = 2 Tablet(s)) Once daily for 1 Day.Take 1 (ONE)Tablet(s) (250 MG = 1 Tablet(s)) Once daily for 4 Days. 09/09/2006 06/13/2020 documented as of this encounter Plan of Treatment Not on file documented as of this encounter Procedures Procedure Name Priority Date/Time Associated Diagnosis Comments MISCELLANEOUS LAB REQUEST Routine 11/08/2019 11:32 AM EDT Polycythemia SILICA CLOTTING TIME Routine 11/08/2019 11:32 AM EDT Recurrent pulmonary embolism DRVVT Routine 11/08/2019 11:32 AM EDT Recurrent pulmonary embolism TT Routine 11/08/2019 11:32 AM EDT Recurrent pulmonary embolism PTT Routine 11/08/2019 11:32 AM EDT Recurrent pulmonary embolism PT Routine 11/08/2019 11:32 AM EDT Recurrent pulmonary embolism PLAT Routine 11/08/2019 11:32 AM EDT Recurrent pulmonary embolism FIBR Routine 11/08/2019 11:32 AM EDT Recurrent pulmonary embolism HC PROTHROMBIN TIME Routine 11/08/2019 1 1:32 AM EDT Recurrent pulmonary embolism THS REPORT Routine 11/08/2019 11:32 AM EDT Recurrent pulmonary embolism SCAN, PERIPHERAL BLOOD Routine 0 11:32 AM EDT PROTEIN S ACTIVITY Routine 11/08/2019 11 :32 AM EDT HEMOGRAM Routine 11/08/2019 11:32 AM EDT Recurrent pulmonary embolism Polycythemia DIFFERENTIAL, AUTOMATED Routine 11/08/2019 11:32 AM EDT Recurrent pulmonary embolism Polycythemia HC PCH EPO (ERYTHROPOIETIN) Routine 11/08/2019 11:32 AM EDT Polycythemia APC RESISTANCE Routine 11/08/2019 11:32 AM EDT BETA-2 GLYCOPROTEIN ANTIBODIES Routine 11/08/2019 11:32 AM EDT Recurrent pulmonary embolism PROTEIN C ACTIVITY Routine 11/08/2019 11 :32 AM EDT CARDIOLIPIN ANTIBODY SCREEN Routine 11/08/2019 11:32 AM EDT Recurrent pulmonary embolism ANTITHROMBIN Routine 11/08/2019 11:32 AM EDT HC CBC,PLT & AUTO DIFF Routine 0 11:32 AM EDT Recurrent pulmonary embolism Polycythemia HOMOCYSTEINE TOTAL, PLASMA Routine 11/08/2019 11:32 AM EDT Recurrent pulmonary embolism THROMBOSIS SCREEN REPORT Routine 11/08/2019 11:13 AM EDT MYELOID SEQ PANEL Routine 11/08/2019 11: 12 AM EDT documented in this encounter Results * (ABNORMAL) Protein S Activity (11/08/2019 11:32 AM EDT) Protein S Act >150(H) 64 - 149 % activity [facility] Blood specimen (specimen) Venous Draw / Unknown 11/08/2019 11:32 AM EDT 11/08/2019 11:43 AM EDT Narrative Resulting Agency Comment Spec In Lab Morenita Ingram MD HEMATOLOGY ORDERABLE S Performing Organization Address City/[facility]/ZIP Co de Phone Number [facility] [place] [address] * Protein C activity (11/08/2019 11:32 AM EDT) Protein C Activity 113 70 - 140 % [facility] Blood specimen (specimen) Venous Draw / Unknown 11/08/2019 11:32 AM EDT 11/08/2019 11:43 AM EDT Narrative Resulting Agency Comment Spec In Lab Morenita Ingram MD HEMATOLOGY ORDERABLE S Performing Organization Address [facility] Co de Phone Number [facility] [place] [address] * Antithrombin (11/08/2019 11:32 AM EDT) Antithrombin III Assay 104 83 - 128 % [facility] Blood specimen (specimen) Venous Draw / Unknown 11/08/2019 11:32 AM EDT 11/08/2019 11:43 AM EDT Narrative Resulting Agency Comment Spec In Lab Morenita Ingram MD HEMATOLOGY ORDERABLE S Performing Organization Address [facility]/ZIP Co de Phone Number [facility] [place] [address] * APC resistance (11/08/2019 11:32 AM EDT) Activated Protein C Resistance 3.46 >=2.17 [facility] Blood specimen (specimen) Venous Draw / Unknown 11/08/2019 11:32 AM EDT 11/08/2019 11:43 AM EDT Narrative Resulting Agency Comment Spec In Lab Morenita Ingram MD HEMATOLOGY ORDERABLE S [facility] [place] [address] * Scan, Peripheral Blood (11/08/2019 11:32 AM EDT) Pathologist [facility] Plat estimate Normal [facility] RBC Morphology Abnormal [facility] Macrocyte gtr than 10 /HPF [facility] Blood specimen (specimen) 11/08/2019 11:32 AM EDT 11/08/2019 11:43 AM EDT Narrative Resulting Agency Comment Spec In Lab Morenita Ingram MD HEMATOLOGY ORDERABLE S [facility] [place] [address] * (ABNORMAL) Differential, Automated (11/08/2019 11:32 AM EDT) Pathologist [facility] Neutrophil % 70.3 % [facility] Neutrophil Absolute 4.87 1.70 - 6.10 x10(3)/mc L [facility] Lymph % 21.8 % [facility] Lymphocytes Abs 1.5 0.9 - 3.2 x10(3)/mc L [facility] Monocyte % 6.2 % [facility] Monocyte Abs 0.4 0.3 - 0.9 x10(3)/mc L [facility] Eos % 0.1 % [facility] Eosinophils Abs 0.0 0.0 - 0.4 x10(3)/mc L [facility] Basophil % 0.6 % [facility] Baso Absolute 0.0 0.0 - 0.1 x10(3)/mc L [facility] Immature Gran % 1.00 % [facility] Comment: Immature granulocytes(IG's)percentage and absolute count will include metamyelocytes, myelocytes, and promyelocytes. Blood smears from CBCs yielding IG's will be scanned manually for concordance. If this scan disagrees with the automated IG or if promyelocytes are noted, a manual differential will be performed. Immature Gran Absolute 0.07(H) 0.00 - 0.04 x10(3)/mc L [facility] Blood specimen (specimen) 11/08/2019 11:32 AM EDT 11/08/2019 11:43 AM EDT Narrative Resulting Agency Comment Spec In Lab Morenita Ingram MD HEMATOLOGY ORDERABLE S [facility] [place] [address] * (ABNORMAL) Hemogram (11/08/2019 11:32 AM EDT) White Blood Cell 6.9 4.0 - 9.5 x10(3)/mc L [facility] Red Blood Cell 3.95(L) 4.00 - 5.21 x10(6)/[facility] Hemoglobin 15.8(H) 11.7 - 15.5 gm/dL [facility] Hematocrit 45.9(H) 35.7 - 45.8 % [facility] Mean Cell Volume 116.2(H) 82.6 - 94.4 fL [facility] Mean Cell Hemoglobin 40.0(H) 27.1 - 32.0 pg [facility] Mean Cell Hemoglobin Concentration 34.4 31.7 - 35.0 gm/dL [facility] Platelet 358(H) 145 - 357 x10(3)/ L [facility] RDW Standard Deviation 60.1(H) 37.0 - 46.0 fL [facility] RDW coefficient of variation 13.8 11.5 - 14.1 % [facility] Mean Platelet Volume 8.6 7.6 - 12.9 fL [facility] NRBC% auto 0.0 % [facility] NRBC Absolute 0.000 0.000 - 0.000 x10(3)/ L [facility] Blood specimen (specimen) 11/08/2019 11:32 AM EDT 11/08/2019 11:43 AM EDT Narrative Resulting Agency Comment Spec In Lab Morenita Ingram MD HEMATOLOGY ORDERABLE S Performing Organization Address [facility] Co de Phone Number [facility] [place] [address] * Beta-2 glycoprotein antibodies (11/08/2019 11:32 AM EDT) Beta 2 Glycoprotein, IgG <9.4 <=20.0 unit(s) [facility] Beta 2 Glycoprotein, IgM <9.4 <=20.0 unit(s) [facility] B2GPI Interp See Thrombosis Screen Report [id number] Hematopatholo gy Reports. [facility] Blood specimen (specimen) 11/08/2019 11:32 AM EDT 11/08/2019 1:41 PM EDT Narrative Resulting Agency Comment Spec In Lab Morenita Ingram MD IMMUNOLOGY ORDERABLE S Performing Organization Address [facility] Co de Phone Number [facility] [place] [address] * (ABNORMAL) Homocysteine Total, Plasma (11/08/2019 11:32 AM EDT) Homocystine 41(H) <=15 mcmol/L [facility] Blood specimen (specimen) 11/08/2019 11:32 AM EDT 11/08/2019 11:43 AM EDT Narrative Resulting Agency Comment Spec In Lab Morenita Ingram MD CHEMISTRY ORDERABLES Performing Organization Address [facility]/ZIP Co de Phone Number [facility] [place] [address] * Cardiolipin Antibody Screen (11/08/2019 11:32 AM EDT) Cardiolipin Antibody IgG <9.4 <=14.9 GPL unit(s) [facility] Comment: Ranges ?? GPL ------ ?? --- Negative ?? <=14.9 Indeterminate ??15.0 - 20.0 Low/Medium Positive 20.1 - 80.0 High Positive ??>80.0 Cardiolipin Antibody IgM 10.9 <=12.5 MPL unit(s) [facility] Comment: Ranges ?? MPL ------ ?? --- Negative ?? <=12.5 Indeterminate ??12.6 - 20.0 Low/Medium Positive 20.1 - 80.0 High Positive ??>80.0 Blood specimen (specimen) 11/08/2019 11:32 AM EDT 11/08/2019 1:41 PM EDT Narrative Resulting Agency Comment Spec In Lab Morenita Ingram MD IMMUNOLOGY ORDERABLE S Performing Organization Address [facility]/ZIP Co de Phone Number [facility] [place] [address] * THS Report (11/08/2019 11:32 AM EDT) THS Report See Comment [facility] Comment:See Thrombosis Scree n Report [id number] under Hematopathology Reports. Blood specimen (specimen) 11/08/2019 11:32 AM EDT 11/08/2019 11:43 AM EDT Narrative Resulting Agency Comment Spec In Lab Morenita Ingram MD HEMATOLOGY ORDERABLE S Performing Organization Address City/[facility]/ZIP Co de Phone Number [facility] [place] [address] * (ABNORMAL) dRVVT (11/08/2019 11:32 AM EDT) dRVVT 1.26(H) <=1.20 IU/mL [facility] Comment: A result greater than 1.20 TR is consistent with the presence of lupus anticoagulant. Values of 1.20 to 1.30 in this assay are not definitively positive or negative for the presence of a lupus anticoagulant. The DRVVT ratio may be falsely elevated in patients on anticoagulants, especially heparins and direct oral anticoagulants. An abnormal test result in an anticoagulated patient must therefore be interpreted with caution, and repeat testing after discontinuing anticoagulation may be appropriate. Blood specimen (specimen) 11/08/2019 11:32 AM EDT 11/08/2019 11:43 AM EDT Narrative Resulting Agency Comment Spec In Lab Morenita Ingram MD HEMATOLOGY ORDERABLE S Performing Organization Address [facility] de Phone Number [facility] [place] [address] * Silica Clotting Time (11/08/2019 11:32 AM EDT) Silica Clotting Time 1.01 <=1.16 ratio [facility] Comment: A result greater than 1.16 TR is consistent with the presence of lupus anticoagulant. Values of 1.16 to 1.24 in this assay are not definitively positive or negative for the presence of a lupus anticoagulant. The SCT ratio may be falsely elevated in patients on anticoagulants, especially heparins and direct oral anticoagulants. An abnormal test result in an anticoagulated patient must therefore be interpreted with caution, and repeat testing after discontinuing anticoagulation may be appropriate. Blood specimen (specimen) 11/08/2019 11:32 AM EDT 11/08/2019 11:43 AM EDT Narrative Resulting Agency Comment Spec In Lab Morenita Ingram MD HEMATOLOGY ORDERABLE S Performing Organization Address [facility] de Phone Number [facility] [place] [address] * (ABNORMAL) Plat (11/08/2019 11:32 AM EDT) Platelet 358(H) 145 - 357 x10(3)/mc L [facility] Immature Plt % 1.8 0.0 - 7.4 % [facility] Comment: Limitation of the Immature Platelet Fraction (IPF)-May be less reliable when the platelet count is less than 57n368/uL due to statistical imprecision. The IPF value provides an assessment of the Bone Marrow production status. ??It is useful in differentiating Thrombocytopenia caused by platelet destruction/consumption versus decreased production. It also helps to determine the imminent release of platelets and can be therefore a helpful parameter in Chemotherapy and Bone marrow transplant patients. ELEVATED IPF value: ?? When the bone marrow is in a state of over production such as when increased destruction and consumption are the underlying issue. ?? When the marrow is recovering post chemotherapy or bone marrow transplant. LOW to NORMAL IPF value: ?? When the bone marrow in not responding and is in a decreased state of production. References: [employer] The Clinical Value of the Immature Platelet Fraction (IPF) in Cell Recovery Document Number 10-1143 07/2010 [employer] The Role of the Immature Platelet Fraction (IPF) in the Differential Diagnosis of Thrombocytopenia, Document [id number] V05 P007/06 Blood specimen (specimen) 11/08/2019 11:32 AM EDT 11/08/2019 11:43 AM EDT Narrative Resulting Agency Comment Spec In Lab Morenita Ingram MD HEMATOLOGY ORDERABLE S Performing Organization Address [facility]/ZIP Co de Phone Number [facility] [place] [address] * (ABNORMAL) TT (11/08/2019 11:32 AM EDT) Thrombin Time 27(H) 10 - 17 sec [facility] Comment: A prolongation in the thrombin time (>20 seconds) may be indicative of hypofibrinogenemia or dysfibrinogenemia. The thrombin time will be prolonged, often markedly so, by the presence of heparin or direct thrombin inhibitors (argatroban, bivalirudin, dabigatran) in the specimen. Blood specimen (specimen) 11/08/2019 11:32 AM EDT 11/08/2019 11:43 AM EDT Narrative Resulting Agency Comment Spec In Lab Morenita Ingram MD HEMATOLOGY ORDERABLE S Performing Organization Address City/[facility]/ZIP Co de Phone Number [facility] [place] [address] * FIBR (11/08/2019 11:32 AM EDT) Fibrinogen 251 200 - 393 mg/dL [facility] Comment: A fibrinogen level >100 mg/dL is adequate for hemostasis in most patients without underlying bleeding disorders. Blood specimen (specimen) 11/08/2019 11:32 AM EDT 11/08/2019 11:43 AM EDT Narrative Resulting Agency Comment Spec In Lab Morenita Ingram MD HEMATOLOGY ORDERABLE S Performing Organization Address [facility] de Phone Number [facility] [place] [address] * (ABNORMAL) PTT (11/08/2019 11:32 AM EDT) Partial Thromboplastin Time 40(H) 25 - 37 sec [facility] Comment: The PTT is NOT appropriate for heparin monitoring. Use the Anti-Xa level for heparin monitoring (HEP UFH) or LMWH monitoring (HEP LMW). A PTT less than 37 seconds generally indicates adequate hemostasis. Blood specimen (specimen) 11/08/2019 11:32 AM EDT 11/08/2019 11:43 AM EDT Narrative Resulting Agency Comment Spec In Lab Morenita Ingram MD HEMATOLOGY ORDERABLE S Performing Organization Address [facility] de Phone Number [facility] [place] [address] * PT (11/08/2019 11:32 AM EDT) Prothrombin Time 11.1 9.4 - 12.5 sec [facility] International Normalization Ratio 1.0 [facility] Comment: An INR <2.0 indicates adequate procoagulant activity for hemostasis in most patients without underlying bleeding disorders, though the INR may not adequately reflect hemostatic capacity in patients with liver disease and synthetic impairment. The recommended target INR range for therapeutic anticoagulation is 2.0 ? 3.0 for most applications, though lower and higher ranges may be appropriate depending on clinical circumstances. Blood specimen (specimen) 11/08/2019 11:32 AM EDT 11/08/2019 11:43 AM EDT Narrative Resulting Agency Comment Spec In Lab Morenita Ingram MD HEMATOLOGY ORDERABLE S Performing Organization Address [facility] Co de Phone Number [facility] [place] [address] * (ABNORMAL) Erythropoietin Level (11/08/2019 11:32 AM EDT) Erythropoietin (JUNE) 19.3(H) 2.6 - 18.5 mIU/mL [facility] Comment: Test Performed by: [facility] [address] [place] [address] Tire Maintenance Technician: Nader Brewster M.D. Ph.D.; CLIA# [id number] Blood specimen (specimen) 11/08/2019 11:32 AM EDT 11/08/2019 4:06 PM EDT Narrative Resulting Agency Comment Spec In Lab Morenita Ingram MD LAB SEND OUT ORDERAB LES Performing Organization Address [facility] Co de Phone Number [facility] [place] [address] * Miscellaneous Lab request (11/08/2019 11:32 AM EDT) Label Request received in lab. [facility] Blood specimen (specimen) 11/08/2019 11:32 AM EDT 11/08/2019 11:44 AM EDT Narrative Resulting Agency Comment Spec In Lab Morenita Ingram MD LAB SEND OUT ORDERAB LES Performing Organization Address [facility] Co de Phone Number [facility] [place] [address] * Thrombosis Screen Report (11/08/2019 11:13 AM EDT) Thrombosis Screen Report [id number] ? Location: 3K The signing pathologist has (i) examined the relevant preparation(s) for the specimen(s) and (ii) rendered or confirmed the diagnosis(es). . ? Thrombosis Screen DIAGNOSIS lupus anticoagulant test positive. Increased plasma homocysteine. Electronically signed by: ??Jem Gavin MD Verified: ??11/17/2019 ?Hematopathologis t Performed at: ??-[facility] Dept. of Pathology, [place], [place] ADDITIONAL STUDIES TEST ?? RESULT ?REFERENCE RANGE Platelet count ?? 358 ? (145-357k/mcL) PT ?? 11.1 ? ( 9.4 - 12.5 sec) PTT ?? 40 ? ( 25 - 37 seconds) Fibrinogen ?? 251 ? (200 ??- 393 mg/dL) TT ?? 27 ? (10 ??- 17 seconds) APC Resistance (normalized ratio) ? 3.46 ? (> 2.17) Anti-thrombin ?? 104 ? (83 ??- 128%) Protein C* ?? 113 ? (70 ??- 140%) Protein S* ?? >150 ? (64 ??- 149%) Lupus anticoagulant (DRVVT ratio) ?? 1.26 ?(<1.20) Lupus anticoagulant (SCT ratio) ? 1.01 ?(<1.16) Anticardiolipin antibodies(IGG) ?<9.4 ?<=14.9 GPL unit(s) Anticardiolipin antibodies(IGM) ?10.9 ?<=12.5 MPL units Beta-2 glycoprotein-1 antibody IgG ?<9.4 ?<=20.0 unit(s) Beta-2 glycoprotein-1 antibodyIgM ? <9.4 ? <=20.0 unit(s) Homocysteine, random, plasma ?41 ? (? to 15 mcmol/L) if APCR< 2.0 FV Leiden mutation ? NOT DONE ?(negative) Prothrombin (87793 G ? A) mutation ?NOT DONE ?(negative) ??* Functional assay for protein C and protein S DISCUSSION The lupus anticoagulant (LA-DRVVT) ?A result greater than 1.20 TR is consistent with the presence of lupus anticoagulant. Values of 1.20 to 1.30 in this assay are not definitively positive or negative for the presence of a lupus anticoagulant. The DRVVT ratio may be falsely elevated in patients on anticoagulants, especially heparins and direct oral anticoagulants. An abnormal test result in an anticoagulated patient must therefore be interpreted with caution, and repeat testing after discontinuing anticoagulation may be appropriate. Plasma Homocysteine may be elevated in the non-fasting state, or this could represent decreased folic acid intake. Suggest- Folic Acid supplementation (1mg/day) and repeat homocysteine (testing) after 4-6 weeks if clinically indicated PRothrombin gene mutation studies ?? Not performed ?? per provider request . The screening test for resistance to activated protein C (APC) is normal, DNA assay for Factor V Leiden mutation is not indicated. CLINICAL INFORMATION recurrent [facility] 11/08/2019 11:1 3 AM EDT Morenita Ingram MD PATHOLOGY/CYTOLOGY O RDERABLES Performing Organization Address [facility] Co de Phone Number [facility] [place] [address] * Myeloid Seq Panel (11/08/2019 11:12 AM EDT) Blood specimen (specimen) 11/08/2019 11:12 AM EDT 11/08/2019 3:27 PM EDT Narrative Resulting Agency Comment Spec In Lab Morenita Ingram MD CHEMISTRY ORDERABLES Performing Organization Address [facility] Co de Phone Number [facility] [place] [address] documented in this encounter Visit Diagnoses Diagnosis Polycythemia Polycythemia vera Recurrent pulmonary embolism Other pulmonary embolism and infarction documented in this encounter Care Teams Germination Testing Manager Relationship Specialty Start Date End Date Genaro Bonilla DNP PCP - General Family Medicine 11/12/18 10/03/20 documented as of this encounter
--- OUTSIDE RECORDS SUMMARY | 2023-12-08 14:52 | XMS_ITS | Encounter Summary ---
Author Organization [facility] Address [facility] [place] [address] Care Team Providers Care Multi Operation Forming Machine Setter Name Role Phone Genaro Bonilla DNP Primary Care Provider Encounter Details Date Type Department Care Team (Late st Contact Info) Description 12/08/2019 Telephone Hematology [place] [address] Morenita Ingram MD [facility] [address] [place] [address] Social History Tobacco Use Types Packs/Day Years Used Date Smoking Tobacco: Former Cigarettes 0.5 40 0 10/18/1978 - 10/18/2018 Smokeless Tobacco: Never Sex and Gender Information Value Date Recorded Sex Assigned at Not on file Gender Identity Not on file Sexual Orientation Not on file documented as of this encounter Miscellaneous Notes * Telephone Encounter - Morenita Ingram MD - 12/08/2019 3:52 PM EDT I called PCp's office and talked to the nurse that I recommended a repeat colonoscopy for evaluation of status of IBD and rule out colon cancer. I asked the office to fax the result to me. Morenita Ingram MD documented in this encounter Plan of Treatment Not on file documented as of this encounter Visit Diagnoses Not on filedocumented in this encounter Care Teams Multi Operation Forming Machine Setter Relationship Specialty Start Date End Date Genaro Bonilla DNP PCP - General Family Medicine 11/12/18 10/03/20 documented as of this encounter
--- OUTSIDE RECORDS SUMMARY | 2023-12-08 14:52 | XMS_ITS | Encounter Summary ---
Author Organization [facility] [place] [address] Care Team Providers Care Picket Labor Union Name Role Phone Genaro Bonilla DNP Primary Care Provider Encounter Details Date Type Department Care Team ([facility] st Contact Info) Description 07/14/2020 External [place] [address] Social History Tobacco Use Types Packs/Day Years [...] Procedure Name Priority Date/Time Associated Diagnosis Comments ECG SCAN Routine 07/14/2020 documented in this encounter Results * Scan Doc: ECG (07/14/2020) Historical Provider MD AVLLE MGR SCAN EX T ORDR/RSLT documented in this encounter Visit Diagnoses Not on filedocumented in this encounter Care Teams [employer]et [employer] Union Relationship Specialty Start Date End Date Genaro Bonilla DNP PCP - General Family Medicine 11/12/18 10/03/20 documented as of this encounter
--- OUTSIDE RECORDS SUMMARY | 2023-12-08 14:52 | XMS_ITS | Encounter Summary ---
[place] [address] Care Team Providers Care Student Outreach Coordinator Name Role Phone Genaro Bonilla DNP Primary Care Provider Encounter Details Date Type Department Care Team (Late st Contact Info) Description 04/25/2020 [place] [phone] Yael Villagomez Social History Tobacco Use Types [...] on filedocumented in this encounter Care Teams Student Outreach Coordinator Relationship Specialty Start Date End Date Genaro Bonilla DNP PCP - General Family Medicine 11/12/18 10/03/20 documented as of this encounter
--- OUTSIDE RECORDS SUMMARY | 2023-12-08 14:52 | XMS_ITS | Encounter Summary ---
[place] [address] Care Team Providers Care Staffing Program Manager Name Role Phone Nancy Shrestha APRN Primary Care Provider Encounter Details Date Type Department Care Team (Late st Contact Info) Description 03/14/2021 [place] [phone] Kimberley Lozano Social History Tobacco Use Types Packs/Day Years [...] on filedocumented in this encounter Care Teams Staffing Program Manager Relationship Specialty Start Date End Date Nancy Shrestha APRN [address] [place], [place] [id number] PCP - General Family Medicine 10/04/20 documented as of this encounter
--- OUTSIDE RECORDS SUMMARY | 2023-12-08 14:52 | XMS_ITS | Encounter Summary ---
Author Organization [facility], [facility]–1983 Address [facility] [place] [address] Care Team Providers Care Natural Resources Specialist Name Role Phone Genaro Bonilla DNP Primary Care Provider Encounter Details Date Type Department Care Team (Late st Contact Info) Description 06/20/2020 [place] [address] Cameron Spence MD [facility] [place] [address] Social History Tobacco Use Types Packs/Day Years Used Date Smoking Tobacco: Every Day Cigarettes 0.5 40 Smokeless Tobacco: Never Sex and Gender Information Value Date Recorded Sex Assigned at Not on file Gender Identity Not on file Sexual Orientation Not on file documented as of this encounter Miscellaneous Notes * Telephone Encounter - Cameron Spence MD - 06/20/2020 4:45 PM EDT Pulmonary Phone Note I have attempted to contact this patient by phone with the following results: left message to return my call on voice mail Cameron Spence MD, PhD Staff Physician Pulmonary and Critical Care Medicine 4:46 PM 06/20/2020 documented in this encounter Plan of Treatment Not on file documented as of this encounter Visit Diagnoses Not on filedocumented in this encounter Care Teams Natural Resources Specialist Relationship Specialty Start Date End Date Genaro Bonilla DNP PCP - General Family Medicine 11/12/18 10/03/20 documented as of this encounter
--- OUTSIDE RECORDS SUMMARY | 2023-12-08 14:52 | XMS_ITS | Encounter Summary ---
Author Organization [facility] Address [place] [address] Care Team Providers Care Automation Engineering Technician Name Role Phone Genaro Bonilla DNP Primary Care Provider Reason for Visit * Reason Onset Date Comments Other 09/30/2019 Faxed signed lab orders to [facility] fax number [phone]. called to let Ms. Kuhn know they had been faxed and confirmed. Encounter Details Date Type Department Care Team (Late st Contact Info) Description 09/30/2019 Telephone [place] [phone] Sarahi Martínez, RN Other (Faxed signed lab orders to [facility] fax number [phone]. called to let Ms. Kuhn know they had been faxed and confirmed. ) Social History Tobacco Use Types Packs/Day Years [...] on filedocumented in this encounter Care Teams Automation Engineering Technician Relationship Specialty Start Date End Date Genaro Bonilla DNP PCP - General Family Medicine 11/12/18 10/03/20 documented as of this encounter
--- OUTSIDE RECORDS SUMMARY | 2023-12-08 14:52 | XMS_ITS | Encounter Summary ---
Author Organization [facility] [place] [address] Care Team Providers Care Wordpress Developer Name Role Phone Genaro Bonilla DNP Primary Care Provider Encounter Details Date Type Department Care Team (Latest Contact Info) Description 06/13/2020 12:30 PM EDT Laboratory Appointment Lab [address] [place] [phone] Necrotizing granulomatous inflammation of lung; Acute pancreatitis, unspecified complication status, unspecified pancreatitis type; Folic acid deficiency; Neuropathy Social History Tobacco Use Types Packs/Day Years [...] Procedure Name Priority Date/Time Associated Diagnosis Comments HC C-REACTIVE PROTEIN Routine 06/13/2020 12:37 PM EDT Necrotizing granulomatous inflammation of lung HC PCH ANTINEUTROPHIL CYTOPLASMIC ABS Routine 06/13/2020 12:37 PM EDT Necrotizing granulomatous inflammation of lung PROTEINASE-3 ANTIBODY Routine 06/13/2020 12:37 PM EDT Necrotizing granulomatous inflammation of lung HC MYELOPEROXIDASE AUTOANTIBODIES Routine 06/13/2020 12:37 PM EDT Necrotizing granulomatous inflammation of lung HEMOGRAM Routine 06/13/2020 12:37 PM EDT Necrotizing granulomatous inflammation of lung DIFFERENTIAL, AUTOMATED Routine 06/14/19 12:37 PM EDT Necrotizing granulomatous inflammation of lung HC PCH IMMUNOGLOBULIN G SUBCLASS 4 (LGG4) Routine 06/13/2020 12:37 PM EDT Necrotizing granulomatous inflammation of lung HC VENIPUNCTURE Routine 06/13/2020 12:37 PM EDT Necrotizing granulomatous inflammation of lung HC LIPASE Routine 06/13/2020 12:37 PM EDT Acute pancreatitis, unspecified complication status, unspecified pancreatitis type HC FOLATE, SERUM Routine 06/13/2020 12:3 7 PM EDT Folic acid deficiency Neuropathy HC VITAMIN B12 SERUM Routine 06/13/2020 12:37 PM EDT Folic acid deficiency Neuropathy COMPREHENSIVE METABOLIC PANEL Routine 06/13/2020 12:37 PM EDT Necrotizing granulomatous inflammation of lung documented in this encounter Results * Differential, Automated (06/13/2020 12:37 PM EDT) Neutrophil % 64.1 % [facility] Neutrophil Absolute 4.46 1.70 - 6.10 x10(3)/[facility] Lymph % 29.2 % [facility] Lymphocytes Abs 2.0 0.9 - 3.2 x10(3)/[facility] Monocyte % 5.0 % [facility] Monocyte Abs 0.4 0.3 - 0.9 x10(3)/[facility] Eos % 0.9 % [facility] Eosinophils Abs 0.1 0.0 - 0.4 x10(3)/[facility] Basophil % 0.4 % [facility] Baso Absolute 0.0 0.0 - 0.1 x10(3)/[facility] Immature Gran % 0.40 % [facility] Comment: Immature granulocytes(IG's)percentage and absolute count will include metamyelocytes, myelocytes, and promyelocytes. Blood smears from CBCs yielding IG's will be scanned manually for concordance. If this scan disagrees with the automated IG or if promyelocytes are noted, a manual differential will be performed. Immature Gran Absolute 0.03 0.00 - 0.04 x10(3)/mcL [facility] Blood specimen (specimen) 06/13/2020 12:37 PM EDT 06/13/2020 12:49 PM EDT Narrative Resulting Agency Comment Spec In Lab Cameron Spence MD HEMATOLOGY ORDERABLE S [facility] [place] [address] * (ABNORMAL) Hemogram (06/13/2020 12:37 PM EDT) White Blood Cell 7.0 4.0 - 9.5 x10(3)/ L [facility] Red Blood Cell 4.06 4.00 - 5.21 x10(6)/ L [facility] Hemoglobin 13.5 11.7 - 15.5 gm/dL [facility] Hematocrit 39.8 35.7 - 45.8 % [facility] Mean Cell Volume 98.0(H) 82.6 - 94.[address] [facility] Mean Cell Hemoglobin 33.3(H) 27.1 - 32.[address] [facility] Mean Cell Hemoglobin Concentration 33.9 31.7 - 35.0 gm/dL [facility] Platelet 282 145 - 357 x10(3)/[facility] RDW Standard Deviation 46.5(H) 37.0 - 46.[address] [facility] RDW coefficient of variation 13.0 11.5 - 14.1 % [facility] Mean Platelet Volume 9.6 7.6 - 12.[address] [facility] NRBC% auto 0.0 % [facility] NRBC Absolute 0.000 0.000 - 0.000 x10(3)/mc L [facility] Blood specimen (specimen) 06/13/2020 12:37 PM EDT 06/13/2020 12:49 PM EDT Narrative Resulting Agency Comment Spec In Lab Cameron Spence MD HEMATOLOGY ORDERABLE S Performing Organization Address City/[facility]/ZIP Co de Phone Number [facility] [place] [address] * Vitamin B12 (06/13/2020 12:37 PM EDT) Vitamin B12 348 232 - 1,245 pg/mL [facility] Blood specimen (specimen) 06/13/2020 12:37 PM EDT 06/13/2020 12:48 PM EDT Narrative Resulting Agency Comment Spec In Lab Morenita Ingarm MD CHEMISTRY ORDERABLES Performing Organization Address [facility]/ZIP Co de Phone Number [facility] [place] [address] * Folate, serum (06/13/2020 12:37 PM EDT) Folate 16.4 4.8 - 24.2 ng/mL [facility] Blood specimen (specimen) 06/13/2020 12:37 PM EDT 06/13/2020 12:48 PM EDT Narrative Resulting Agency Comment Spec In Lab Morenita Ingram MD CHEMISTRY ORDERABLES Performing Organization Address [facility]/ZIP Co de Phone Number [facility] [place] [address] * Proteinase-3 Antibody (06/13/2020 12:37 PM EDT) Proteinase 3 Antibody <2.0 <=20.0 unit(s) [facility] Blood specimen (specimen) 06/13/2020 12:37 PM EDT 06/13/2020 2:56 PM EDT Narrative Resulting Agency Comment Spec In Lab Cameron Spence MD IMMUNOLOGY ORDERABLE S Performing Organization Address City/[facility]/ZIP Co de Phone Number [facility] [place] [address] * Myeloperoxidase Ab (06/13/2020 12:37 PM EDT) Myeloperoxidase Antibody 2.0 <=20.0 unit(s) [facility] Blood specimen (specimen) 06/13/2020 12:37 PM EDT 06/13/2020 2:56 PM EDT Narrative Resulting Agency Comment Spec In Lab Cameron Spence MD IMMUNOLOGY ORDERABLE S Performing Organization Address [facility] Co de Phone Number [facility] [place] [address] * Cytoplasmic Neutrophilic Ab (06/13/2020 12:37 PM EDT) C-Anca (JUNE) Negative Negative [facility] Comment: Test Performed by: [facility] [place] [address] Barrel Cap Setter: Nader Brewster M.D. Ph.D.; CLIA# [id number] P-Anca (JUNE) Negative Negative [facility] Comment: Negative for cANCA and pANCA patterns by immunofluorescence. ADDITIONAL INFORMATION This test was developed and its performance characteristics determined by [facility] in a manner consistent with CLIA requirements. This test has not been cleared or approved by the U.S. Food and Drug Administration. Test Performed by: [facility] [place] [address] Barrel Cap Setter: Nader Brewster M.D. Ph.D.; CLIA# [id number] Blood specimen (specimen) 06/13/2020 12:37 PM EDT 06/13/2020 2:18 PM EDT Narrative Resulting Agency Comment Spec In Lab Cameron Spence MD LAB SEND OUT ORDERAB LES Performing Organization Address [facility]/ZIP Co de Phone Number [facility] [place] [address] * (ABNORMAL) IgG 4 (06/13/2020 12:37 PM EDT) IgG 4 1.7(L) 4.0 - 86.0 mg/dL [facility] Comment: Test Performed by [employer], [facility], [address] [place] [address] Alex Keith M.D., Ph.D., Director of Laboratories , [place] [id number] Blood specimen (specimen) 06/13/2020 12:37 PM EDT 06/13/2020 2:39 PM EDT Narrative Resulting Agency Comment Spec In Lab Cameron Spence MD IMMUNOLOGY ORDERABLE S Performing Organization Address [facility] Co de Phone Number [facility] [place] [address] * (ABNORMAL) CRP, acute inflammation (06/13/2020 12:37 PM EDT) [facility] Signature C-Reactive Protein 5.5(H) <=4.9 mg/L [facility] Blood specimen (specimen) 06/13/2020 12:37 PM EDT 06/13/2020 12:49 PM EDT Narrative Resulting Agency Comment Spec In Lab Cameron Spence MD CHEMISTRY ORDERABLES Performing Organization Address [facility]/ZIP Co de Phone Number [facility] [place] [address] * (ABNORMAL) Lipase (06/13/2020 12:37 PM EDT) Lipase 74(H) 0 - 60 unit/L [facility] Blood specimen (specimen) 06/13/2020 12:37 PM EDT 06/13/2020 12:49 PM EDT Narrative Resulting Agency Comment Spec In Lab Cameron Spence MD CHEMISTRY ORDERABLES [facility] [place] [address] * (ABNORMAL) Comprehensive metabolic panel (non-fasting) (06/13/2020 12:37 PM EDT) Glucose 94 65 - 199 mg/dL [facility] Comment:Diabetes: >=200 mg/d L plus symptoms Blood Urea Nitrogen 9 8 - 18 mg/dL [facility] Creatinine 0.67(L) 0.70 - 1.20 mg/dL [facility] Sodium 141 135 - 145 mmol/L [facility] Potassium 3.6 3.5 - 5.0 mmol/L [facility] Comment: Please note: ??Patients with WBC >100,000 may have falsely elevated Potassium levels. ??For accurate Potassium quantification in these patients send serum separator tube (gold top) for subsequent determinations. ??Contact the Clinical Chemistry Laboratory if there are any questions. Chloride 108(H) 98 - 107 mmol/L [facility] Carbon Dioxide 24 22 - 31 mmol/L [facility] Anion Gap 9 5 - 15 mmol/L [facility] Calcium 9.7 8.5 - 10.5 mg/dL [facility] Protein, Total 6.6 6.1 - 8.0 gm/dL [facility] Albumin 4.2 3.2 - 5.2 gm/dL [facility] Aspartate Aminotransferase 15 0 - 30 unit/L [facility] Alanine Aminotransferase 12 0 - 30 unit/L [facility] Alkaline Phosphatase 69 35 - 105 unit/L [facility] Bilirubin, Total 0.3 0.2 - 1.3 mg/dL [facility] Est Glomerular Filtration Rate 94 >=60 mL/min/1. 73 m?? [facility] Comment: This patient? s estimated [...] In Lab Cameron Spence MD CHEMISTRY ORDERABLES [facility] [place] [address] documented in this encounter Visit Diagnoses Diagnosis Necrotizing granulomatous inflammation of lung Acute pancreatitis, unspecified complication status, unspecified pancreatitis type Folic acid deficiency Other B-complex deficiencies Neuropathy Mononeuritis of unspecified site documented in this encounter Care Teams Wordpress Developer Relationship Specialty Start Date End Date Genaro Bonilla DNP PCP - General Family Medicine 11/12/18 10/03/20 documented as of this encounter
--- OUTSIDE RECORDS SUMMARY | 2023-12-08 14:52 | XMS_ITS | Encounter Summary ---
Author Organization [facility] Address [facility] [place] [address] Care Team Providers Care Fruit Sprayer Name Role Phone Genaro Bonilla MARTIN Primary Care Provider [phone] Encounter Details Date Type Department Care Team (Late st Contact Info) Description 07/14/2020 Ancillary Procedure Radiology Library at [facility] [place] [address] Cameron Spence MD [facility] [place] [address] Social History Tobacco Use Types Packs/Day Years [...] Procedure Name Priority Date/Time Associated Diagnosis Comments FILM LIBRARY STORAGE ONLY CT CHEST Routine 07/14/2020 12:00 AM EDT documented in this encounter Results * Film Library- Storage Only CT Chest (07/14/2020 12:00 AM EDT) Narrative CHARISSA - 08/24/2020 12:52 PM EDT This exam is auto-finalizing. It's purpose is for storage only. Cameron Spence MD IMG FILM LIBRARY ORD ERABLES [facility] [place] documented in this encounter Visit Diagnoses Not on filedocumented in this encounter Care Teams Fruit Sprayer Relationship Specialty Start Date End Date Irene, Genaro Dege, DNP PCP - General Family Medicine 11/12/18 10/03/20 documented as of this encounter
--- OUTSIDE RECORDS SUMMARY | 2023-12-08 14:52 | XMS_ITS | Encounter Summary ---
[place] [address] Care Team Providers Care Paint Grinder Stone Mill Name Role Phone Nancy Shrestha APRN Primary Care Provider [phone] Encounter Details Date Type Department Care Team (Late st Contact Info) Description 12/25/2020 [place] [phone] Yael Villagomez Social History Tobacco Use Types [...] on filedocumented in this encounter Care Teams Paint Grinder Stone Mill Relationship Specialty Start Date End Date Nancy Shrestha APRN [address] [place], [place] [address] PCP - General Family Medicine 10/04/20 documented as of this encounter
--- OUTSIDE RECORDS SUMMARY | 2023-12-08 14:52 | XMS_ITS | Encounter Summary ---
[place] [address] Care Team Providers Care Fixing Carpenter Name Role Phone Genaro Bonilla DNP Primary Care Provider Encounter Details Date Type Department Care Team (Late st Contact Info) Description 09/29/2019 [place] [address] Brittnee Norton Social History Tobacco Use Types Packs/Day Years [...] on filedocumented in this encounter Care Teams Fixing Carpenter Relationship Specialty Start Date End Date Genaro Bonilla DNP PCP - General Family Medicine 11/12/18 10/03/20 documented as of this encounter
--- OUTSIDE RECORDS SUMMARY | 2023-12-08 14:52 | XMS_ITS | Encounter Summary ---
Author Organization [facility] [place] [address] Care Team Providers Care Flare Maker Name Role Phone Nancy Shrestha APRN Primary Care Provider Encounter Details Date Type Department Care Team (Latest Contact Info) Description 12/15/2022 Travel Social History Tobacco Use Types Packs/Day Years [...] on filedocumented in this encounter Care Teams Flare Maker Relationship Specialty Start Date End Date Nancy Shrestha APRN [address] [place] [address] PCP - General Family Medicine 10/04/20 documented as of this encounter
--- OUTSIDE RECORDS SUMMARY | 2023-12-08 14:52 | XMS_ITS | Encounter Summary ---
Author Organization [place] [address] Care Team Providers Care Carbide Powder Processor Name Role Phone Genaro Bonilla MARTIN Primary Care Provider [phone] Reason for Visit * Reason Onset Date Comments Other 08/24/2020 Notified Pt reag rding CT image request Encounter Details Date Type Department Care Team (Late st Contact Info) Description 08/24/2020 Telephone [place] [phone] Brittnee Pope RN Other (Notified Pt reagrding CT image request) Social History Tobacco Use Types Packs/Day Years Used Date Smoking Tobacco: Every Day Cigarettes 0.5 40 Smokeless Tobacco: Never Sex and Gender Information Value Date Recorded Sex Assigned at Not on file Gender Identity Not on file Sexual Orientation Not on file documented as of this encounter Miscellaneous Notes * Telephone Encounter - Brittnee Pope RN - 08/24/2020 12:31 PM EDT I have attempted to contact Pt, x3, per Dr. Spence request to notify her of the following information: This patient needs a CT at [facility]. ??I have ordered and asked [facility] to fax it. I have not been able to reach Ms. Kuhn to tell her I have been unable to get the old scans and that we need to repeat the imaging. ??She should be expecting this call. ??Are you able to let her know for me? Thanks, Pau Spence I have relayed this information to Pt on . I have requested Pt call my direct line back once scheduled or after she has gotten the scan so we are aware to look for the results. Brittnee Pope RN Department of Pulmonary 5C, [facility] [place] Pager: [phone] documented in this encounter Plan of Treatment Not on file documented as of this encounter Visit Diagnoses Not on filedocumented in this encounter Care Teams Carbide Powder Processor Relationship Specialty Start Date End Date Genaro Bonilla DNP PCP - General Family Medicine 11/12/18 10/03/20 documented as of this encounter
--- OUTSIDE RECORDS SUMMARY | 2023-12-08 14:52 | XMS_ITS | Encounter Summary ---
Author Organization [facility] Address [facility] [place] [address] Care Team Providers Care Mechanical Handyman Name Role Phone Genaro Bonilla DNP Primary Care Provider [phone] Encounter Details Date Type Department Care Team (Late st Contact Info) Description 08/24/2020 [place] [address] Cameron Spence MD [facility] [place] [address] Social History Tobacco Use Types Packs/Day Years [...] on filedocumented in this encounter Care Teams Mechanical Handyman Relationship Specialty Start Date End Date Genaro Bonilla DNP PCP - General Family Medicine 11/12/18 10/03/20 documented as of this encounter
--- OUTSIDE RECORDS SUMMARY | 2023-12-08 14:52 | XMS_ITS | Encounter Summary ---
Author Organization [facility] Address [facility] [place] [address] Care Team Providers Care Field Sales Trainer Name Role Phone Genaro Bonilla DNP Primary Care Provider [phone] Encounter Details Date Type Department Care Team (Late st Contact Info) Description 09/26/2019 Orders [place] [address] Cameron Spence MD [facility] [place] [address] Lung mass (Primary Dx) Social History Tobacco Use Types [...] as of this encounter Visit Diagnoses Diagnosis Lung mass- Primary Swelling, mass, or lump in chest documented in this encounter Care Teams Field Sales Trainer Relationship Specialty Start Date End Date Genaro Bonilla DNP PCP - General Family Medicine 11/12/18 10/03/20 documented as of this encounter
--- OUTSIDE RECORDS SUMMARY | 2023-12-08 14:52 | XMS_ITS | Encounter Summary ---
[place] [address] Care Team Providers Care Manager Security Name Role Phone Nancy Shrestha APRN Primary Care Provider Encounter Details Date Type Department Care Team (Late st Contact Info) Description 02/25/2021 Tele[place] [phone] Aleta Perkins Social History Tobacco Use Types Packs/Day Years [...] on filedocumented in this encounter Care Teams Manager Security Relationship Specialty Start Date End Date Nancy Shrestha APRN [address] [place], [place] [address] PCP - General Family Medicine 10/04/20 documented as of this encounter
--- OUTSIDE RECORDS SUMMARY | 2023-12-08 14:52 | XMS_ITS | Encounter Summary ---
Author Organization [facility] Address [facility] [place] [address] Care Team Providers Care Poultry Killer Name Role Phone Genaro Bonilla DNP Primary Care Provider Encounter Details Date Type Department Care Team (Late Contact Info) Description 08/30/2020 [place] [phone] Cameron Spence MD [facility] [place] [address] Social History Tobacco Use Types Packs/Day Years Used Date Smoking Tobacco: Every Day Cigarettes 0.5 40 Smokeless Tobacco: Never Sex and Gender Information Value Date Recorded Sex Assigned at Not on file Gender Identity Not on file Sexual Orientation Not on file documented as of this encounter Miscellaneous Notes * Telephone Encounter - Cameron Spence MD - 08/30/2020 1:09 PM EDT Pulmonary Phone Note I have attempted to contact this patient by phone with the following results: left message to return my call on voice mail, I will continue to try later. Outside imaging reviewed. Direct comparison is complicated by intercurrent pneumonialike changes. Recommendation repeat noncontrast CT scan of the chest in late September 2020, study as already ordered.This will allow for better assessment after resolution of changes related to her infectious pneumonia. Persistent nodular changes appear less concerning they did an prior scan from August 2019. Cameron Spence MD, PhD Staff Physician Pulmonary and Critical Care Medicine 1:09 PM 08/30/2020 * Telephone Encounter - Cameron Spence MD - 08/30/2020 1:05 PM EDT ----- Message from Cameron Spence MD sent at 08/30/2020 10:34 AM EDT ----- Regarding: Call about CTs documented in this encounter Plan of Treatment Not on file documented as of this encounter Visit Diagnoses Not on filedocumented in this encounter Care Teams Poultry Killer Relationship Specialty Start Date End Date Genaro Bonilla DNP PCP - General Family Medicine 11/12/18 10/03/20 documented as of this encounter
--- OUTSIDE RECORDS SUMMARY | 2023-12-08 14:52 | XMS_ITS | Encounter Summary ---
Author Organization [facility] Address [facility] [place] [address] Care Team Providers Care Legal Transcriptionist Name Role Phone Genaro Bonilla DNP Primary Care Provider Encounter Details Date Type Department Care Team (Late st Contact Info) Description 06/14/2020 Telephone Hematology [place] [phone] Yadi Kendall RN Social History Tobacco Use Types Packs/Day Years Used Date Smoking Tobacco: Every Day Cigarettes 0.5 40 Smokeless Tobacco: Never Sex and Gender Information Value Date Recorded Sex Assigned at Not on file Gender Identity Not on file Sexual Orientation Not on file documented as of this encounter Miscellaneous Notes * Telephone Encounter - Yadi Kendall RN - 06/14/2020 1:51 PM EDT TC to patient. Reviewed normal lab results for CBC, folic acid and vit B12. Advised to continue taking them. She's aware someone will reach out to her regarding the colonoscopy. She stated she had a PAP smear done with biopsy which needs to be repeated. Has not had a mammogram done yet. Stated secretary book keeper will be calling to schedule follow up elina't. Yadi Kendall RN MSN ===View-only below this line=== ----- Message ----- From: Marquita Quach Sent: 06/14/2020 1:58 PM EDT To: Yadi Kendall RN ----- Message ----- From: Morenita Ingram MD Sent: 06/14/2020 12:26 PM EDT To: Marquita Quach PS: f/u in 2 months. Can you coordinate appointment with Dr. Cameron Spence- pulmonary department? [place] on public transportation. Will be best to have same day. If we cannot make it happen, we manfred it as tele visit 6-8 weeks from now. Before her follow-up, I need result of colonoscopy, pap smear and mammogram. Thanks, Morenita Grullon: can you let her know that her CBC is normal and her folic acid/vitamin B12 are good. She should continue them. I will schedule a follow-up in 6-8 weeks. I talked to general surgery associate for her colonoscopy. They will reach out to her. I d like her to have PAP smear, colo and mammogram. Morenita Jaquez documented in this encounter Plan of Treatment Not on file documented as of this encounter Visit Diagnoses Not on filedocumented in this encounter Care Teams Legal Transcriptionist Relationship Specialty Start Date End Date Genaro Bonilla DNP PCP - General Family Medicine 11/12/18 10/03/20 documented as of this encounter
--- OUTSIDE RECORDS SUMMARY | 2023-12-08 14:52 | XMS_ITS | Encounter Summary ---
Author Organization [facility] Address [facility] [place] [address] Care Team Providers Care Card Services Specialist Name Role Phone Genaro Bonilla DNP Primary Care Provider [phone] Reason for Visit * Reason Comments Schedule Office Case * Consultation (Urgent) - Closed Specialty Diagnoses / Procedures Referred By Contac t Referred To Contact Hematology and Oncology Diagnoses Other pulmonary embolism without acute cor pulmonale PULMONARY EMBOLI Genaro Bonilla DNP [address] [place] [id number] [facility] [address] [place] [address] Referral ID Status Reason Start Date Expiration Date V isits Requested Visits Authorized [id number] Closed Consult, Test & Treat Connection Center PCP Updated and/or Approved 08/29/2019 02/29/2020 1 1 Encounter Details Date Type Department Care Team (Late st Contact Info) Description 11/08/2019 10:00 AM EDT Office Visit [place]ology [place] [phone] Morenita Ingram MD [facility] [place] [address] Recurrent pulmonary embolism (Primary Dx); Polycythemia; Folic acid deficiency Social History Tobacco Use Types Packs/Day Years Used Date Smoking Tobacco: Former Cigarettes 0.5 40 0 10/18/1978 - 10/18/2018 Smokeless Tobacco: Never Sex and Gender Information Value Date Recorded Sex Assigned at Not on file Gender Identity Not on file Sexual Orientation Not on file documented as of this encounter Last Filed Vital Signs Vital Sign Reading Time Taken Comments Blood Pressure 126/83 11/08/2019 10:10 AM EDT Pulse 79 11/08/2019 10:10 AM EDT Temperature 36.5 ??C (97.7 ??F) 11/08/2019 10:10 AM E DT Respiratory Rate 18 11/08/2019 10:10 AM EDT Oxygen Saturation 98% 11/08/2019 10:10 AM EDT Inhaled Oxygen Concentration - - Weight 81.9 kg (180 lb 9.6 oz) 11/08/2019 10:10 AM EDT Height 164.5 cm (5' 4.76) 11/08/2019 10:10 AM E DT Body Mass Index 30.27 11/08/2019 10:10 AM EDT documented in this encounter Progress Notes * Morenita Ingram MD - 11/08/2019 10:00 AM EDT Images from the original note were not included. [facility] [place] [id number] THROMBOSIS CONSULTATION DATE OF VISIT 11/08/2019 Patient Martina Kuhn 1955 REFERRING PHYSICIAN Genaro Bonilla APRN PRIMARY CARE PHYSICIAN Genaro Bonilla APRN REASON FOR CONSULTATION Evaluation of recurrent pulmonary embolism & polythemia and anticoagulation management HISTORY OF THE PRESENT ILLNESS Martina Kuhn is a 64 y.o. woman with history of benign lung and breast lesions, recurrent pulmonary embolism & polycythemia, who is seen in consultation at the request of Genaro Bonilla APRN for evaluation of recurrent PE and anticoagulation management.The history is obtained from the elisa kate, and I have reviewed extensive medical records provided by the referring physician and located in the electronic medical record to fill in gaps in the patient's recollection of events, treatments and outcomes. In September 2018 she initially presented with two day history of chest pain associated with dyspnea and also reported left lower extremity swelling since her hospitalization in August 2018 for pneumonia.Further work up revealed lung masses, concerning of malignancy and also bilateral pulmonary embolism with right pleural effusion. There was no evidence of right heart strain by echo. There was concern of malignancy, therefore patient was discharged home with enoxaparin. Doppler was negative for bilateral LE DVT, but positive for DVT involving left axillary vein, basilic and radial vein. In interim, she underwent lung biopsy which revealed no evidence of malignancy, but demonstrated necrotizing granulomatous inflammation with negative stains for organisms. She also had a breast biopsy which was also negative for malignancy. After completion of enoxaparin for 6 months, she was switched to rivaroxaban in June 2019. She usually takes rivaroxaban first thing in the morning with her other medication about 30 minutes before meal and she has been compliant with rivaroxaban. In July 2019 she presented to the ED with increased shortness of breath. CTA on 08/22/19 revealed large embolus in the right main pulmonary artery with extension into the lower lobe branches. small embolus in the left lower lobe. Her rivaroxaban was discontinued and she was switched back to enoxaparin 80 mg SQ twice daily. She denies any bleeding issues on enoxaparin except bruising at injection sites. Because of slow improvement of her dyspnea repeat CTA was performed on 09/20 which showed decreased burden of her PE. Of note, she was also found to have polycythemia since Dec 2018. Per pulmonary note, it was noted that her JAK2 mutation was negative,but I did not see official result of that. Currently she feels that her shortness of breath has improved. She denies any chest pain. She stillfeels overall fatigue. She used to smoke cig at least half pack per day in the past and quit last year for about 6months, but smokes again now 1-2 cig/day. She is willing to consider quit smoking again. She drinks alcohol 2-3 drinks/day. Used to drink more in the past and was sober for 11 years, and started drink alcohol again for 10 years now, but able to limit to 2-3 drink of wine/day. There is no family history of DVT, PE. She does not take any hormone replacement therapy at currenttime or recently. THROMBOSIS RISK FACTORS Risk Factor Comment Obesity (BMI >30 kg/m2) V/A Y Body mass index is 30.27 kg/m??. Diabetes V/A Current smoker V/A Y Estrogen or estrogen/progestin V/A V/A Inflammatory disease V/A Recent surgery (<3 months) V Recent hospitalization (<3 mo) V Y For PE in July 2019 Recent travel (<3 mo) V Period of immobility V Documented thrombophilia V Accident/Trauma V/A Cancer or treatment for cancer V/A Blood transfusion V/A Central venous catheter V Family history (1st degree) V/A Varicose veins/venous insuff. V Hypertension A Hyperlipidemia A Vascular disease A V: Risk factor for venous thrombosis; A: Risk factor for arterial thrombosis PAST MEDICAL HISTORY Patient Active Problem List Diagnosis Code ??? Lung mass R91.8 ??? Other pulmonary embolism without acute cor pulmonale I26.99 ??? Breast mass N63.0 ??? Hypothyroidism E03.9 Anxiety/derpession OPERATIVE PROCEDURES Past Surgical History: Procedure Laterality Date ??? BREAST BIOPSY Left 2019 [facility] B9 ??? BREAST BIOPSY Left 2019 [facility] B9 ??? CT GUIDED BIOPSY LUNG 03/07/2019 CT Guided Biopsy Lung 03/07/2019 [facility] RAD CAT SCAN ??? MAMMO US BIOPSY LEFT Left 03/30/2019 [facility] Us Biopsy Left 03/30/2019 Kenzie Cevallos MD [facility] RAD MAMMOGRAPHY OBSTETRIC HISTORY MEDICATIONS Current Outpatient Medications on File Prior to Visit Medication Sig Dispense Refill ??? levothyroxine (SYNTHROID) 50 mcg Tablet Take 50 mcg by mouth Daily. ??? ARIPiprazole (ABILIFY) 5 mg Tablet Daily ??? enoxaparin (LOVENOX) 40 mg/0.4 mL Syringe Q12H ??? escitalopram (LEXAPRO) 20 mg Tablet take 1 tablet by mouth every morning 0 ??? DAILY-KITTY Tablet take 1 tablet by mouth once daily 0 ??? cyclobenzaprine (FLEXERIL) 10 mg Tablet TK 1 T PO HS PRN 1 ??? [DISCONTINUED] VITAMIN B-1 100 mg Tablet take 1 tablet by mouth once daily 0 ??? [DISCONTINUED] pregabalin (LYRICA) 25 mg Capsule ??? [DISCONTINUED] omeprazole (PRILOSEC) 40 mg Capsule, Delayed Release(E.C.) Daily ??? [DISCONTINUED] naltrexone (DEPADE) 50 mg Tablet Take 50 mg by mouth Daily. ??? [DISCONTINUED] magnesium oxide (MAG-OX) 400 mg (241.3 mg magnesium) Tablet take 1 tablet by mouth twice a day 0 ??? [DISCONTINUED] buPROPion XL (WELLBUTRIN XL) 300 mg Tablet Extended Release 24 hr Take 300 mg bymouth Daily. ??? [DISCONTINUED] amitriptyline (ELAVIL) 10 mg Tablet Take 10 mg by mouth Three times a day. ??? [DISCONTINUED] ALPRAZolam (XANAX) 0.5 mg Tablet Take 0.5 mg by mouth Three times a day. ??? [DISCONTINUED] THIAMINE MONONITRATE, VIT B1, ORAL Daily ??? [DISCONTINUED] umeclidinium-vilanterol 62.5-25 mcg/actuation Disk with Device Inhale 1 puff into the lungs daily. 60 each 3 ??? predniSONE (DELTASONE) 20 mg Tablet 40 mg by mouth daily x 7 days, then 30 mg by mouth daily x 7 days, then 20 mg by mouth x 7 days, then 10 mg by mouth x 7 days, then stop (Patient not taking: Reported on 02/17/2019) 36 tablet 0 ??? HYDROcodone-acetaminophen 10-300 mg/15 mL Solution 1 tablet. ??? ibuprofen (ADVIL;MOTRIN) 600 mg Tablet Every 6 hours, as needed PRN For Pain ??? [DISCONTINUED] multivit with minerals/lutein (MULTIVITAMIN 50 PLUS ORAL) 1 tablet. ??? CIS Free Text Med - Albuterol 90 MC-2 Puff(s), Inh, PRN (Patient not taking: No sig reported) ??? azithromycin (ZITHROMAX) 250 mg tablet Taper/Titrate, POTaper/Titrate, PO. Take 2 (TWO)Tablet(s) (500 MG = 2 Tablet(s)) Once daily for 1 Day.Take 1 (ONE)Tablet(s) (250 MG = 1 Tablet(s)) Once daily for 4 Days. (Patient not taking: No sig reported) ??? [DISCONTINUED] CIS Free Text Med - Librium Taper/Titrate, POTaper/Titrate, PO. Take 2 (TWO)Capsule(s) (50 MG = 2 Capsule(s)) Three times daily for 2 Days.Take 2 (TWO)Capsule(s) (50 MG = 2 Capsule(s)) Twice daily for 2 Days.Take 1 (ONE)Capsule(s) (25 MG = 1 Capsule(s)) Three times daily for 2 Days.Take 1 (ONE)Capsule(s) (25 MG = 1 Capsule(s)) Twice daily for 2 Days. (Patient not taking: No sigreported) No current facility-administered medications on file prior to visit. ADVERSE DRUG REACTIONS Allergies as of 11/08/2019 - Review Complete 11/08/2019 Allergen Reaction Noted ??? Sulfa (sulfonamide antibiotics) Other (See Comments) 11/12/2018 FAMILY HISTORY No family history of VTE Dad of [place] in his 80. SOCIAL HISTORY Lives by herself Have 2 sons. Smoker, used to smoke 1/2 PPD for 40 years, now 1-2 cig/day Alcohol abuse in the past, now 2-3 drinks of wine/day REVIEW OF SYSTEMS Fevers/chills/sweats No Recent infections No Unexplained weight loss No Headache/lightheadedness/syncope No Sinus pain/pressure No Oral sores/lesions/bleeding No Sore throat/dysphagia No Nosebleeds No Cough/SOB/chest pain/heart racing Baseline dyspnea on exertion- but overall improved since PE Nausea/vomiting/dyspepsia No Abdominal pain No Diarrhea/constipation No Urinary pain, burning, incontinence No Hematuria No Vaginal discharge/bleeding No Skin rashes/ulcers No Back/joint pain/swelling No Leg swelling/pain/redness No Bruising/petechiae/bleeding/melena Bruising at enoxaparin injection site Sensory/motor No Polydipsia/polyuria/heat/cold intol No Lumps/bumps/swollen glands No Other Fatigue PHYSICAL EXAMINATION BP 126/83 (Patient Position: Sitting) Pulse 79 Temp 36.5 ??C (97.7 ??F) (Temporal) Resp 18 Ht 164.5 cm (5' 4.76) Wt 81.9 kg (180 lb 9.6 oz) SpO2 98% BMI 30.27 kg/m?? GENERAL: Well-appearing, articulate white female. HEENT: Wearing mask NECK: Supple; no cervical, supraclavicular or submental adenopathy. BREASTS: Exam deferred. CHEST/LUNGS: Clear to auscultation/percussion. No rales, rhonchi, wheezes. HEART: Regular rate and rhythm; no murmur, rub, gallop GASTROINTESTINAL: Abdomen soft, non-tender GENITOURINARY: Exam deferred. EXTREMITIES: No clubbing, cyanosis or edema. No erythema, tenderness or palpable cords. No venous varicosities. No skin discoloration or hemosiderin deposits. MUSCULOSKELETAL: Spine nontender. No acutely inflamed joints. SKIN: No ecchymoses, petechiae, ulcers or rashes. LYMPH: No palpable lymph nodes. NEUROLOGIC: Alert, oriented. Speech clear, coherent. No focal deficits noted. PSYCHIATRIC: Appropriate affect, no apparent distress. LABORATORY STUDIES Lab Results Component Value Date WBC 6.9 11/08/2019 RBC 3.95 (L) 11/08/2019 HGB 15.8 (H) 11/08/2019 HCT 45.9 (H) 11/08/2019 MCV 116.2 (H) 11/08/2019 MCH 40.0 (H) 11/08/2019 MCHC 34.4 11/08/2019 PLATELET 358 (H) 11/08/2019 PLATELET 358 (H) 11/08/2019 RDWCV 13.8 11/08/2019 Ref. Range 11/08/2019 11:32 Erythropoietin Latest Ref Range: 2.6 - 18.5 mIU/mL 19.3 (H) Ref. Range 11/08/2019 11:32 PT Latest Ref Range: 9.4 - 12.5 sec 11.1 INR Unknown 1.0 PTT Latest Ref Range: 25 - 37 sec 40 (H) Fibrinogen Latest Ref Range: 200 - 393 mg/dL 251 Thrombin Time Latest Ref Range: 10 - 17 sec 27 (H) dRVVT Latest Ref Range: <=1.20 IU/mL 1.26 (H) Silica Clotting Time Latest Ref Range: <=1.16 ratio 1.01 Antithrombin Latest Ref Range: 83 - 128 % 104 Protein C Act Latest Ref Range: 70 - 140 % 113 Protein S Act Latest Ref Range: 64 - 149 % activity >150 (H) Homocyst Tot Latest Ref Range: <=15 mcmol/L 41 (H) B2GPI IgG Latest Ref Range: <=20.0 unit(s) <9.4 B2GPI IgM Latest Ref Range: <=20.0 unit(s) <9.4 B2GPI Interp Unknown See Thrombosis Screen Report 10-TS- under Hematopathology Reports. Cardiolipin IgG Latest Ref Range: <=14.9 GPL unit(s) <9.4 Cardiolipin IgM Latest Ref Range: <=12.5 MPL unit(s) 10.9 APC resistance (screening test for factor V Leiden pending) Myeloid Seq panel pending to rule out myeloproliferative disorder (work up for polycythemia) Outside recent lab 10/17/19 : folic acid level low 4 ng/mL (8.6-20) Vitamin B12 310 pg/mL (193-986) Pathology result 03/07/2019 ? Surgical Pathology DIAGNOSIS A - Right lung, biopsy: ??- Pulmonary parenchyma with necrotizing granulomatous inflammation. ??- ??No malignancy is identified. ?(see Discussion.) Electronically signed by: ??MD Marisela, Alberto Zavala Verified: ??03/10/2019 ?Pathologist Performed at: ??-[facility] Dept. of Pathology, [place], [place] DISCUSSION AFB, GMS, OMAR, and Gram stains show no evidence of organism. Scattered yellow- pigmented fibrillary and refractile granular structures are seen within necrotic ??debris, which are favored to represent hematoidin (early heme breakdown product ??suggestive of recent hemorrhage). ??This case was also reviewed by Dr. Jauregui ??Rojelio (microbiology). ADDITIONAL STUDIES Whole slide scan: advertising representative slide(s) Immunohistochemistry Studies: Formalin-fixed, paraffin-embedded tissue sections are studied using the polymer ??technique with appropriate positive and negative controls. ?These IHC studies ??provide the pathologist with adjunctive diagnostic information. Antibody specificity ??has been verified by testing antibodies on a series of in-house tissues with known ??immunohistochemical performance characteristics. The clinical interpretation of ??any antibody positive staining or its absence is evaluated within the context of ??clinical presentation, morphology, histopathological criteria and other diagnostic ??tests. Block ? Antibody ?Result (Positive/Negative) A1 ? Treponema ?Negative CLINICAL INFORMATION Specimen Submitted: A - Right lung Clinical History and Diagnosis: Lung mass SPECIMEN PROCESSING A - Labeled/Fixative: Right lung, formalin. Quantity/Size: Three 0.7-1.2 cm. Tissue Description: Yellow-mitchell needle core biopsies. Sections/Processing: Breast biopsy 04/01/19 ? Surgical Pathology DIAGNOSIS Needle biopsies: ?Left breast Diagnosis: ?Benign breast tissue with scar, chronic lymphohistiocytic ??inflammation, hemosiderin deposition, and fat necrosis (see Discussion) Microcalcifications: ??N/A Electronically signed by: ??Tiffani Okeefe DO Verified: ??04/01/2019 ?Pathologist Performed at: ??-[facility] Dept. of Pathology, [place], [place] DISCUSSION The findings are likely related to the recent biopsy. Clinical and radiologic ??correlation is recommended. RADIOGRAPHIC STUDIES No new imaging today IMPRESSION Martina Kuhn is a 64 y.o. woman with history of anxiety/depression, hypothyroidism, smoker, benign lung and breast mass, recurrent pulmonary embolism, left upper extremity DVT who was referred to our Thrombosis clinic for evaluation of VTE, polycythemia and anticoagulation management. Her initial left UE DVT and bilateral pulmonary embolism occurred shortly after her hospitalizationfor pneumonia the month prior. It was not clear whether she had a catheter in her left arm or not. There was a concern that her VTE could be cancer associated because of the discovery of lung masses and breast mass. She was treated with enoxaparin for 6 months and underwent lung and breast biopsy an d pathology revealed benign finding. After completion of malignancy work up, she was switched from enoxaparin to rivaroxaban and less than a month after switching her anticoagulation she developed recurrent pulmonary embolism despite being compliant with her medication. Her anticoagulation was switched back from rivaroxaban to enoxaparin and follow-up CTA a month later showed improvement of her pulmonary embolism. Anticoagulation failure is generally rare. Usually it would occur in patient with active malignancyor acquired thrombophilia such as antiphospholipid syndrome. Her malignancy work up has been negative so far, but I am still concerned whether we have missed any malignancy on the lung biopsy. She does not appear to have any GI issue that would cause decreased oral absorption of rivaroxaban. We discussed that polycythemia vera which is a myeloproliferative disorder has been associated with risk for thrombosis. I think we should complete work up to rule out this. Her epo level is borderline highand not low which is suggestive of secondary polycythemia. We would expect low epo in patient with primary polycythemia). I sent out myeloid sequence panel to rule out JAK2, HYACINTH and MPL mutation which can be seen in MPD. I think that her polycythemia is more likely secondary to hypoxemia state (although her clinical law professor did not strongly think so based on her recent pulm testing). Her epo level is also not too high that I would expect epo producing tumor. If her lab testing did not suggest MPD, I still think that we need to consider CT abdomen/pelvis to rule out malignancy as potential causeof recurrent PE. I did not ask her today about her recent screening colonoscopy. Will need to double check when this was done. I will request the result of previous colonoscopy from PCP. We decided to proceed with thrombophilia testing today. There is no evidence of inherited thrombophilia. APC resistance which is a screening test for factor V Leiden mutation is still pending. Prothrombin gene mutation was not performed because the testing is generally not covered by insurance. We generally do not see anticoagulation failure in these patients. Her lab does not suggest an evidenceof antiphospholipid syndrome. Although her dRVVT was mildly elevated above ratio, this is less likely clinical relevant, richard that her other antiphospholipid antibodies are all negative. Her macrocytosis and elevated homocysteine is due to folic acid deficiency. We will recommend folic acid supplement. In the meantime, I asked her to continue enoxaparin 80 mg SQ twice daily until we have all result of lab testing back. I think she is now a candidate for long- term anticoagulation and I hope that we can transition her to oral anticoagulant at some point. PLAN/RECOMMENDATIONS 1. Continue enoxaparin 80 mg SQ twice daily for now 2. Thrombophilia testing today - still pending APC resistance result 3. Work up for polycythemia- pending myeloid sequence panel to rule out polycythemia vera 4. If all work up is negative, I would consider CT abdomen/pelvis if this has not been done recently. Will need to check with PCP. I also will request result of latest screening colonoscopy. 5. Recommend folic acid supplement 1 mg PO daily for folic acid deficiency with repeat lab in 3 months. 6. Discussed tobacco cessation Martina Kuhn had the opportunity to ask questions and indicated that all her questions were answered to her satisfaction. She will follow up with me in approximately three weeks to discuss the results of lab testing, and I will finalize my recommendations at that time. (OK for phone visit follow-up) Morenita Ingram MD documented in this encounter Plan of Treatment Not on file documented as of this encounter Results * Miscellaneous Lab request (11/08/2019 11:32 AM EDT) Label Request received in lab. [facility] Blood specimen (specimen) 11/08/2019 11:32 AM EDT 11/08/2019 11:44 AM EDT Narrative Resulting Agency Comment Spec In Lab Morenita Ingram MD LAB SEND OUT ORDERAB LES Performing Organization Address City/[facility] Co de Phone Number [facility] [place] [address] * (ABNORMAL) Erythropoietin Level (11/08/2019 11:32 AM EDT) Erythropoietin (JUNE) 19.3(H) 2.6 - 18.5 mIU/mL [facility] Comment: Test Performed by: [place] [address] Business Account Manager: Nader Brewster M.D. Ph.D.; CLIA# [id number] Blood specimen (specimen) 11/08/2019 11:32 AM EDT 11/08/2019 4:06 PM EDT Narrative Resulting Agency Comment Spec In Lab Morenita Ingram MD LAB SEND OUT ORDERAB LES Performing Organization Address City/[facility]/ZIP Co de Phone Number [facility] [place] [address] documented in this encounter Visit Diagnoses Diagnosis Recurrent pulmonary embolism- Primary Other pulmonary embolism and infarction Polycythemia Polycythemia vera Folic acid deficiency Other B-complex deficiencies documented in this encounter Care Teams Card Services Specialist Relationship Specialty Start Date End Date Genaro Bonilla DNP PCP - General Family Medicine 11/12/18 10/03/20 documented as of this encounter
--- OUTSIDE RECORDS SUMMARY | 2023-12-08 14:52 | XMS_ITS | Encounter Summary ---
Author Organization [facility] Address [facility] [place] [address] Care Team Providers Care Maori Liaison Adviser Name Role Phone Genaro Bonilla DNP Primary Care Provider Encounter Details Date Type Department Care Team (Late st Contact Info) Description 11/21/2019 [place] [phone] Keira Menard LNA Social History Tobacco Use Types Packs/Day Years Used Date Smoking Tobacco: Former Cigarettes 0.5 40 0 10/18/1978 - 10/18/2018 Smokeless Tobacco: Never Sex and Gender Information Value Date Recorded Sex Assigned at Not on file Gender Identity Not on file Sexual Orientation Not on file documented as of this encounter Miscellaneous Notes * Telephone Encounter - Keira Menard LNA - 11/21/2019 4:34 PM EDT Spoke with pt to schedule PFT and tele visit with Dr. Spence. Pt was confused and will call us tomorrow. documented in this encounter Plan of Treatment Not on file documented as of this encounter Visit Diagnoses Not on filedocumented in this encounter Care Teams Maori Liaison Adviser Relationship Specialty Start Date End Date Genaro Bonilla DNP PCP - General Family Medicine 11/12/18 10/03/20 documented as of this encounter
--- OUTSIDE RECORDS SUMMARY | 2023-12-08 14:52 | XMS_ITS | Encounter Summary ---
Author Organization [facility] Address [facility] [place] [address] Care Team Providers Care Clerical Aide Teacher Name Role Phone Genaro Bonilla DNP Primary Care Provider Encounter Details Date Type Department Care Team (Latest Contact Info) Description 11/28/2019 1:00 PM EDT TH Visit (TeleHealth) Hematology [place] [address] Morenita Ingram MD [facility] DR HEMATOLOGY [place] [address] Recurrent pulmonary embolism; Folic acid deficiency; Polycythemia Social History Tobacco Use Types Packs/Day Years Used Date Smoking Tobacco: Former Cigarettes 0.5 40 0 10/18/1978 - 10/18/2018 Smokeless Tobacco: Never Sex and Gender Information Value Date Recorded Sex Assigned at Not on file Gender Identity Not on file Sexual Orientation Not on file documented as of this encounter Progress Notes * Morenita Ingram MD - 11/28/2019 1:00 PM EDT Images from the original note were not included. [facility] [place], [place] [address] THROMBOSIS FOLLOW-UP DATE OF VISIT 11/28/2019 Patient Martina Kuhn 1955 REFERRING PHYSICIAN Genaro Bonilla APRN PRIMARY CARE PHYSICIAN Genaro Bonilla APRN REASON FOR CONSULTATION Evaluation of recurrent pulmonary embolism & polythemia and anticoagulation management Due to COVID-19 pandemic this office visit was converted to telephone visit. Patient verbally consents to this telephone visit and understands that the visit may be billed, similar to a clinic officevisit. THROMBOSIS PROBLEM LIST 1. September 2018 unprovoked acute bilateral pulmonary embolism and acute DVT of the left arm involving left axillary vein, basilic vein Tx: enoxaparin for 6 months - while complete work up for malignancy (both lung and breast lesions were benign) -> then switch to rivaroxaban in June 2019 2. July 2019 recurrent acute pulmonary embolism in the right main pulmonary artery with extension into the lower lobes branches. Small embolus in the left lower lobe (unprovoked) Tx: stopped rivaroxaban -> switched back to enoxaparin 80 mg SQ twice daily to current date Thrombophilia testing: negative Polycythemia work up: myeloid panel - neg for myeloproliferative disorder (neg JAK2, CALR, MPL mutation). Polycythemia is likely secondary to hypoxemia HISTORY OF THE PRESENT ILLNESS Martina Kuhn is a 64 y.o. woman with history of benign lung and breast lesions, recurrent pulmonary embolism & polycythemia, who is seen in consultation at the request of Genrao Bonilla APRN for evaluation of recurrent PE [...] did not see official result of that. She used to smoke cig at least [...] hormone replacement therapy at currenttime or recently. INTERIM HISTORY She is scheduled for follow-up to discuss her lab result and anticoagulation management. In interim, she went to the ED at [facility] for acute right sided chest pain, cough, SOB and was diagosed with bronchitis/pneumonia. Her shortness of breath has improved now and her cough has started to clear up. She still smokes 1 cig/day. Her chest pain has resolved. She denies any bleeding issues while on enoxaparin. No new leg pain/swelling. She has not started folic acid supplement yet. I asked her about her previous colonoscopy. She stated that her last colonoscopy was about 3 years ago. She was not certain when repeat colo is needed. She had history of ulcerative colitis. She denies any rectal bleeding,but occasional diarrhea. She used to take a medication for her ulcerative colitis, but could not afford the medication, therefore she stopped. THROMBOSIS RISK FACTORS Risk Factor Comment Obesity (BMI >30 kg/m2) V/A Y Diabetes V/A Current smoker V/A Y Estrogen or estrogen/progestin V/A V/A Inflammatory disease V/A ? Hx of ulcerative colitis Recent surgery (<3 months) V Recent hospitalization [...] ??? Breast mass N63.0 ??? Hypothyroidism E03.9 ??? Folic acid deficiency E53.8 Anxiety/derpession \ Ulcerative colitis OPERATIVE PROCEDURES Past Surgical History: Procedure Laterality Date ??? BREAST BIOPSY Left 2018 [facility] B9 ??? BREAST BIOPSY Left 2019 [facility] B9 ??? CT GUIDED BIOPSY LUNG 03/07/2019 CT Guided Biopsy Lung 03/07/2019 [facility] RAD CAT SCAN ??? MAMMO US BIOPSY LEFT Left 03/30/2019 Mammo Us Biopsy Left 03/30/2019 Kenzie Cevallos MD [facility] RAD MAMMOGRAPHY MEDICATIONS Outpatient Medications Marked as Taking for the 11/28/19 encounter (TH Visit (TeleHealth)) with Morenita Ingram MD Medication Sig Dispense Refill ??? enoxaparin (LOVENOX) 80 mg/0.8 mL Syringe Inject 80 mg subcutaneously 2 times daily. ??? DAILY-KITTY Tablet take 1 tablet by mouth once daily 0 ??? levothyroxine (SYNTHROID) 50 mcg Tablet Take 50 mcg by mouth Daily. ??? cyclobenzaprine (FLEXERIL) 10 mg Tablet TK 1 T PO HS PRN 1 ??? HYDROcodone-acetaminophen 10-300 mg/15 mL Solution 1 tablet. ??? ARIPiprazole (ABILIFY) 5 mg Tablet Daily ??? escitalopram (LEXAPRO) 20 mg Tablet take 1 tablet by mouth every morning 0 ADVERSE DRUG REACTIONS Allergies as of 11/28/2019 - Review Complete 11/08/2019 Allergen Reaction Noted ??? Sulfa (sulfonamide antibiotics) Other (See Comments) 11/12/2018 FAMILY HISTORY No family history of VTE Dad of [place] in his 80. SOCIAL HISTORY Lives by [...] on exertion- but overall improved since PE ->recent bronchitis/pneumonia with cough/SOB and chest pain -> better now Nausea/vomiting/dyspepsia No Abdominal pain No Diarrhea/constipation Occasional diarrhea depending on what she eats Urinary pain, burning, incontinence No Hematuria No Vaginal discharge/bleeding No Skin rashes/ulcers No Back/joint pain/swelling No Leg swelling/pain/redness No Bruising/petechiae/bleeding/melena Bruising at enoxaparin injection site Sensory/motor No Polydipsia/polyuria/heat/cold intol No Lumps/bumps/swollen glands No Other Fatigue PHYSICAL EXAMINATION None LABORATORY STUDIES Lab Results Component Value Date [...] Latest Ref Range: <=12.5 MPL unit(s) 10.9 Ref. Range 11/08/2019 11:32 APC Resistance Latest Ref Range: >=2.17 3.46 APC resistance (screening test for factor V Leiden) normal which ruled out presence of factor V Leiden mutation Myeloid Seq panel pending to rule out myeloproliferative disorder (work up for polycythemia) - normal Outside recent lab 10/17/19 : folic acid level low 4 ng/mL (8.6-20) Vitamin B12 310 pg/mL ([id number]) Pathology result 03/07/2019 ? Surgical Pathology DIAGNOSIS A - Right lung, biopsy: ??- Pulmonary parenchyma with necrotizing granulomatous inflammation. ??- ??No malignancy is identified. ?(see Discussion.) Electronically signed by: ??MD Marisela, Alberto Zavala Verified: ??03/10/2019 ?Pathologist Performed at: ??-[facility] Dept. of Pathology, [place], [place] DISCUSSION AFB, GMS, OMAR, and Gram stains show no evidence of organism. Scattered yellow- pigmented fibrillary and refractile granular structures are seen within necrotic ??debris, which are favored to represent hematoidin (early heme breakdown product ??suggestive of recent hemorrhage). ??This case was also reviewed by Dr. Jauregui ??Rojelio (microbiology). ADDITIONAL STUDIES Whole slide scan: assisted sales representative slide(s) Immunohistochemistry Studies: Formalin-fixed, paraffin-embedded tissue [...] Okeefe DO Verified: ??04/01/2019 ?Pathologist Performed at: ??-[facility] Dept. of Pathology, [place], [place] DISCUSSION The findings are likely related to the recent biopsy. Clinical and radiologic ??correlation is recommended. RADIOGRAPHIC STUDIES No new imaging today IMPRESSION Martina Kuhn is a 64 y.o. woman with history of anxiety/depression, hypothyroidism, smoker, benign lung and breast mass, recurrent pulmonary embolism, left upper extremity DVT, history of ? ulcerative colitis who was referred to our Thrombosis clinic for evaluation of VTE, polycythemia and anti coagulation management. Today she is scheduled for follow-up to discuss lab result. Her initial left UE DVT and bilateral [...] later showed improvement of her pulmonary embolism. We discussed that polycythemia vera which is a myeloproliferative disorder has been associated withrisk for thrombosis.Her epo level is borderline high and not low which is suggestive of secondary polycythemia. We would expect low epo in patient with primary polycythemia). I sent out myeloid sequence panel to rule out JAK2, HYACINTH and MPL mutation which can be seen in MPD and this was neg. I thinkthat her polycythemia is more likely secondary to hypoxemia state. Her epo level is also not too high that I would expect epo producing tumor. Her thrombophilia testing is negative for inherited thrombophilia. Lupus anticoagulant was weakly positive. A result greater than 1.20 TR is consistent with the presence of lupus anticoagulant. Values of 1.20 to 1.30 in this assay are not definitively positive or negative for the presence of a lupus anticoagulant. Her other antiphospholipid antibodies are neg. I do not think that she has an underlying antiphospholipid syndrome. Her homocysteine level is elevated secondary to folic acid deficiency. I sent a script of folic acid 1 mg PO daily to local pharmacy and asked her to start to take it. Anticoagulation failure is generally rare. Usually it would occur in patient with active malignancyor acquired thrombophilia such as antiphospholipid syndrome. Her malignancy work up has been negative so far, but I am still concerned whether we have missed any malignancy. I asked her about her previous colonoscopy. She stated that her last screening colonoscopy was about 3 years ago and I was not aware last time that she also has history of ulcerative colitis. Inflammatory bowel disease (IBD) patients are at two- to threefold higher risk of venous thromboembolism (VTE) compared with the general population. The absolute risk is highest during hospitalization for acute flares, but those who develop flares in the outpatient setting are also at substantiallyhigher risk of VTE. Relative to periods of remission, individuals during active flares have about aninefold increased risk of VTE (Tricia MJ, West J, Card TR. Venous thromboembolism during active disease and remission in inflammatory bowel disease: a cohort study. Lancet 2010;375:657-663.) I alsodiscussed that IBD is associated with risk for developing colon cancer, therefore I think we should follow-up on this and she should likely benefit of having her colonoscopy to address the status of her IBD and rule out colon cancer. If there is an evidence of active IBD, I would recommend to starttreatment and once her underlying inflammation is under control, then we can switch her anticoagulant to oral anticoagulant. I am willing to consider switching her to apixaban. In the meantime, I asked her to continue enoxaparin 80 mg SQ twice daily and I hope that we can transition her to oral anticoagulant after her GI evaluation. I will reach out to her primary care physician to help with further work up. PLAN/RECOMMENDATIONS 1. Continue enoxaparin 80 mg SQ twice daily for now 2. Tobacco cessation 3. Recommend GI evaluation - colonoscopy to evaluate status of ulcerative colitis and rule out malignancy - enoxaparin can be stopped 24 hours prior to colonoscopy and restart 12 hours after if there is nobleeding - If all work up is negative, I would consider CT abdomen/pelvis if this has not been done recently. 4. Recommend folic acid supplement 1 mg PO daily for folic acid deficiency with repeat lab in 3 months. She prefers to have this done locally. I will ask her to have this done with her PCP 5. Discussed tobacco cessation Martina Kuhn had the opportunity to ask questions and indicated that all her questions were answered to her satisfaction. She will follow up with me in approximately 6-8 weeks. (OK via phone follow-up) I provided care to the patient via telephone call. Total time of calls 25 minutes. Morenita Ingram MD documented in this encounter Plan of Treatment Not on file documented as of this encounter Visit Diagnoses Diagnosis Recurrent pulmonary embolism Other pulmonary embolism and infarction Folic acid deficiency Other B-complex deficiencies Polycythemia Polycythemia vera documented in this encounter Care Teams Clerical Aide Teacher Relationship Specialty Start Date End Date Genaro Bonilla DNP PCP - General Family Medicine 11/12/18 10/03/20 documented as of this encounter
--- OUTSIDE RECORDS SUMMARY | 2023-12-08 14:52 | XMS_ITS | Encounter Summary ---
[place] [address] Care Team Providers Care Metal Stud Framer Name Role Phone Genaro Bonilla DNP Primary Care Provider Encounter Details Date Type Department Care Team (Late st Contact Info) Description 04/25/2020 Telephone [place] [id number] Yael Villagomez Social History Tobacco Use Types [...] on filedocumented in this encounter Care Teams Metal Stud Framer Relationship Specialty Start Date End Date Genaro Bonilla DNP PCP - General Family Medicine 11/12/18 10/03/20 documented as of this encounter
--- OUTSIDE RECORDS SUMMARY | 2023-12-08 14:52 | XMS_ITS | Encounter Summary ---
Author Organization [facility] Address [facility] [place] [address] Care Team Providers Care Line Server Name Role Phone Genaro Bonilla DNP Primary Care Provider Encounter Details Date Type Department Care Team (Latest Contact Info) Description 08/17/2020 9:30 AM EDT TH Visit (TeleHealth) [place] [address] Cameron Spence MD [facility] [place] [address] Necrotizing granulomatous inflammation of lung (Primary Dx); History of pulmonary embolism; Cigarette nicotine dependence without complication Social History Tobacco Use Types Packs/Day Years Used Date Smoking Tobacco: Every Day Cigarettes 0.5 40 Smokeless Tobacco: Never Sex and Gender Information Value Date Recorded Sex Assigned at Not on file Gender Identity Not on file Sexual Orientation Not on file documented as of this encounter Progress Notes * Cameron Spence MD - 08/17/2020 9:30 AM EDT Images from the original note were not included. [facility] Section of Pulmonary and Critical Care Medicine Outpatient Consultation Date of Encounter: 08/17/2020 PCP: Genaro Bonilla APRN Reason for Evaluation: Ms. Martina Kuhn follows up with the [facility] today for this telephone visit for abnormal chest imaging. She was last seen 06/13/2020. I independently interviewed and examined the patient in the office and have reviewed available records. At the time of this encounter she was physically in [place]. She verbally consented to this telephone visit and understands that this visit may be billed, similar to a clinic office visit. This visit was originally scheduled as a telehealth encounter however Ms. Kuhn indicates she does not have the capacity to do a video visit. History of Present Illness: I was able to reach Ms. Kuhn by telephone today after she did not connect for her video visit. She tells me that since our last visit she had a rough day. She was diagnosed with three stressfractures in her back, likely vertebral compression fractures. She was prescribed transdermal fentanyl and on using it became obtunded and was ultimately admitted to the hospital where she was diagnosed with an unintentional fentanyl overdose, pneumonia and a heart attack. She was treated both at [facility] and [facility]. She reports she completed a course of antibiotics. While she was initially having some shortness ofbreath upon discharge she feels like she is back to her baseline now. She does not report any new respiratory symptoms. No fever or chills. She is still smoking about 5 or 6 cigarettes a day. She has nicotine replacement therapy available but indicated she did not yet have the motivation to quit. She declined further counseling on the topic today. She tells me that she is now fully vaccinated for COVID-19 and had no significant side effects. Despite multiple requests, have not yet received outside records or imaging that were requested in May. I reviewed medical, surgical family and social histories and updated the chart as indicated. Past Medical and Surgical History: Past Medical History: Diagnosis Date ??? Anxiety ??? Breast mass 11/11/2019 ??? Colitis ??? Depression ??? Hypothyroidism 11/11/2019 ??? Lung mass ??? Pulmonary embolism Past Surgical History: Procedure Laterality Date ??? BREAST BIOPSY Left [facility] B9 ??? BREAST BIOPSY Left 2019 [facility] B9 ??? CT GUIDED BIOPSY LUNG 03/07/2019 CT Guided Biopsy Lung 03/07/2019 [facility] RAD CAT SCAN ??? MAMMO US BIOPSY LEFT Left 03/30/2019 Mammo Us Biopsy Left 03/30/2019 Kenzie Cevallos MD [facility] RAD MAMMOGRAPHY Family History: Family History Negative family history of: Breast Cancer Social and Occupational History: Social History Socioeconomic History ??? Marital status: Spouse name: Not on file ??? Number of children: Not on file ??? Years of education: Not on file ??? Highest education level: Not on file Occupational History ??? Not on file Tobacco Use ??? Smoking status: Current Every Day Smoker Packs/day: 0.50 Years: 40.00 Pack years: 20.00 ??? Smokeless tobacco: Never Used Vaping Use ??? Vaping Use: Never used Substance and Sexual Activity ??? Alcohol use: Not on file ??? Drug use: Not on file ??? Sexual activity: Not on file Other Topics Concern ??? Not on file Social History Narrative ??? Not on file Social Determinants of Health Financial Resource Strain: ??? Difficulty of Paying Living Expenses: Food Insecurity: ??? Worried About Running Out of Food in the Last Year: ??? Ran Out of Food in the Last Year: Transportation Needs: ??? Lack of Transportation (Medical): ??? Lack of Transportation (Non-Medical): Physical Activity: ??? Days of Exercise per Week: ??? Minutes of Exercise per Session: Current Medications at Start of Encounter: Outpatient Medications Prior to Visit Medication Sig Dispense Refill ??? cyanocobalamin, Vitamin B-12, (Vitamin B-12) 1,000 mcg Tablet TAKE 1 TABLET BY MOUTH DAILY ??? pregabalin (LYRICA) 150 mg Capsule ??? enoxaparin (LOVENOX) 80 mg/0.8 mL Syringe Inject 80 mg subcutaneously 2 times daily. ??? folic acid (Folvite) 1 mg Tablet Take 1 tablet by mouth daily. 90 tablet 3 ??? levothyroxine (SYNTHROID) 50 mcg Tablet Take 50 mcg by mouth Daily. ??? cyclobenzaprine (FLEXERIL) 10 mg Tablet TK 1 T PO HS PRN 1 ??? ARIPiprazole (ABILIFY) 5 mg Tablet Daily ??? escitalopram (LEXAPRO) 20 mg Tablet take 1 tablet by mouth every morning 0 No facility-administered medications prior to visit. Adverse Drug Reactions: Allergies Allergen Reactions ??? Sulfa (Sulfonamide Antibiotics) Other (See Comments) Caused chills and sweating Review of Systems: An 11-point ROS was negative except per the HPI. Physical Examination: There were no vitals taken for this visit. Physical Exam Constitutional: General: She is not in acute distress. Appearance: She is well-developed. Interventions: Face mask in place. Neck: Trachea: Phonation normal. Cardiovascular: Rate and Rhythm: Normal rate and regular rhythm. Heart sounds: Normal heart sounds. Pulmonary: Effort: Pulmonary effort is normal. Breath sounds: Normal breath sounds. No wheezing, rhonchi or rales. Abdominal: Palpations: Abdomen is soft. Tenderness: There is no abdominal tenderness. Lymphadenopathy: Head: Right side of head: No submandibular, posterior auricular or occipital adenopathy. Left side of head: No submandibular, posterior auricular or occipital adenopathy. Cervical: No cervical adenopathy. Skin: General: Skin is warm and dry. Nails: There is no clubbing. Neurological: Mental Status: She is alert. Psychiatric: Speech: Speech normal. Behavior: Behavior normal. Behavior is cooperative. Labs: I reviewed blood work that was obtained 06/14/2019. CBC was notable for normal white blood cell count with normal differential. Hemoglobin was normal at 13.5 with a slightly increased MCV at 98 fL. Normal platelets of 282. Renal function was normal with BUN of 7 creatinine 0.67. Total plasma CO2 is normal at 24. Liver panel was normal with normal AST ALT and total bilirubin. Lipase was slightly elevated at 74 in the setting of recovery from pancreatitis. P-ANCA and c-ANCA were not detected nor MPO or MT-3. IgG class IV was low at 1.7. CRP was mildly elevated at 5.5. Past Pathology: DIAGNOSIS A - Right lung, biopsy: ??- Pulmonary parenchyma with necrotizing granulomatous inflammation. ??- ??No malignancy is identified. ?(see Discussion.) Electronically signed by: ??MD Marisela, Alberto Zavala Verified: ??03/10/2019 ?Pathologist Performed at: ??-[facility] Dept. of Pathology, [place], [place] DISCUSSION AFB, GMS, OMAR, and Gram stains show no evidence of organism. Scattered yellow- pigmented fibrillary and refractile granular structures are seen within necrotic ??debris, which are favored to represent hematoidin (early heme breakdown product ??suggestive of recent hemorrhage). ??This case was also reviewed by Dr. Jauregui ??Rojelio (microbiology). Imaging: There has been no new thoracic imaging. I reviewed the last CT scan of her chest from 09/21/2019 which demonstrated mass in the right lower lobe. Pulmonary Function Tests: Date FVC FEV1 Ratio TLC RV RV/TLC ERV DLCO 6MWT 11/19/18 3.38 107% 2.55 103% 0.75 21.26 105% 06/13/20 3.02 97% 2.23 92% 0.74 13.13 65% I personally reviewed flow-volume loops and other tests. Spirometry and diffusion capacity are global. Impression and Plan of Care: This is a middle-aged woman with history of pulmonary embolism and lung mass showing granulomatous inflammation with necrosis on biopsy. 1. Necrotizing granulomatous inflammation of lung 2. History of pulmonary embolism Unfortunately, without the previously requested imaging is difficult to comment further on stability of Ms. Kuhn's previously identified lung mass. Impression has been of granulomatous inflammation without a clear etiology, but concerning for malignancy still exists. I have again requested imaging from [facility] we agree H and Ms. Kuhn will follow up with the radiology department again today. Imaging is not received by Thursday of next week, we will repeat a CT scan of her chest to assess the stability of the lung mass. 3. Cigarette nicotine dependence without complication Behavioral support provided. We briefly discussed some strategies for cessation. Offered future support on this important health issue. Follow up office visit in 6 months Patient verbally consents to this telephone visit and understands that this visit may be billed, similar to a clinic office visit. I provided care to the patient today via telephone call. The total time associated with this visit was 30 minutes. Cameron Spence MD, PhD [facility] PULMONOLOGY AT [facility] [address] Dept: [phone] Loc: [phone] documented in this encounter Plan of Treatment Not on file documented as of this encounter Visit Diagnoses Diagnosis Necrotizing granulomatous inflammation of lung- Primary History of pulmonary embolism Personal history of pulmonary embolism Cigarette nicotine dependence without complication Tobacco use disorder documented in this encounter Care Teams Line Server Relationship Specialty Start Date End Date Genaro Bonilla DNP PCP - General Family Medicine 11/12/18 10/03/20 documented as of this encounter
--- OUTSIDE RECORDS SUMMARY | 2023-12-08 14:52 | XMS_ITS | Encounter Summary ---
Author Organization [facility] Address 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 [place] [address] Necrotizing granulomatous inflammation of lung (Primary Dx); Polycythemia; Dyspnea, unspecified type Social History Tobacco Use Types Packs/Day Years Used Date Smoking Tobacco: Former Cigarettes 0.5 40 0 10/18/1978 - 10/18/2018 Smokeless Tobacco: Never Sex and Gender Information Value Date Recorded Sex Assigned at Not on file Gender Identity Not on file Sexual Orientation Not on file documented as of this encounter Progress Notes * Cameron Spence MD - 09/30/2019 11:30 AM EDT Images from the original note were not included. [facility] Section of Pulmonary and Critical Care Medicine Outpatient Consultation Date of Encounter: 09/30/2019 Referring Provider: No referring provider defined for this encounter. PCP: Genaro Bonilla APRN Reason for Evaluation: Genaro Bonilla APRN referred Ms. Martina Kuhn to me to the [facility] to evaluate and manage lung masses. She was last seen 02/17/[address] Pool. I have not previously seen this patient. I independently interviewed and examined the patient in the office and have reviewed available records. This was a telephone visit. At the time of this encounter Ms. Kuhn was physically in [place]. History of Present Illness: I reached Ms. Kuhn by telephone today. We discussed prior work-up of her lung mass and breast mass. Biopsies have been benign. Her lung mass however demonstrated necrotizing granulomatous inflammation with negative stains for organisms. No further evaluation has been performed for her lung mass. She continues on enoxaparin for her pulmonary emboli which occurred while taking rivaroxaban (Xarelto). She does not have known active malignancy. She denies any fever, chills, night sweats, or weight loss. No hemoptysis. No hematuria. She is unaware of any kidney injury. She has not traveled to far [facility] recently. She continues to complain of significant dyspnea on exertion. She reports that last week she was quite short of breath with pleuritic chest pains and was admitted to [facility]. She understands that her electrolytes were off this was managed and she was discharged.She was negative for COVID-19. I reviewed medical, surgical family and social histories and updated the chart as indicated. Past Medical and Surgical History: Past Medical History: Diagnosis Date ??? Anxiety ??? Colitis ??? Depression ??? Lung mass Past Surgical History: Procedure Laterality Date ??? BREAST BIOPSY Left 2019 . B9 ??? BREAST BIOPSY Left 2019 [place] B9 ??? CT GUIDED BIOPSY LUNG 03/07/2019 CT Guided Biopsy Lung 03/07/2019 [facility] RAD CAT SCAN ??? MAMMO US BIOPSY LEFT Left 03/30/2019 Mammo Us Biopsy Left 03/30/2019 Kenzie Cevallos MD [facility] RAD MAMMOGRAPHY Family History: Family History Negative family history of: Breast Cancer Social and Occupational History: Social History Socioeconomic History ??? Marital status: Spouse name: None ??? Number of children: None ??? Years of education: None ??? Highest education level: None Occupational History ??? None Social Needs ??? Financial resource strain: None ??? Food insecurity Worry: None Inability: None ??? Transportation needs Medical: None Non-medical: None Tobacco Use ??? Smoking status: Former Smoker Packs/day: 0.50 Years: 40.00 Pack years: 20.00 Quit date: 10/18/2018 Years since quittin.9 ??? Smokeless tobacco: Never Used Substance and Sexual Activity ??? Alcohol use: None ??? Drug use: None ??? Sexual activity: None Lifestyle ??? Physical activity Days per week: None Minutes per session: None ??? Stress: None Relationships ??? Social connections Talks on phone: None Gets together: None Attends congregation service: None Active member of club or organization: None Attends meetings of clubs or organizations: None Relationship status: None ??? Intimate partner violence Fear of current or ex partner: None Emotionally abused: None Physically abused: None Forced sexual activity: None Other Topics Concern ??? None Social History Narrative ??? None Current Medications at Start of Encounter: Outpatient Medications Prior to Visit Medication Sig Dispense Refill ??? VITAMIN B-1 100 mg Tablet take 1 tablet by mouth once daily 0 ??? pregabalin (LYRICA) 25 mg Capsule ??? omeprazole (PRILOSEC) 40 mg Capsule, Delayed Release(E.C.) Daily ??? naltrexone (DEPADE) 50 mg Tablet Take 50 mg by mouth Daily. ??? DAILY-KITTY Tablet take 1 tablet by mouth once daily 0 ??? levothyroxine (SYNTHROID) 50 mcg Tablet Take 50 mcg by mouth Daily. ??? magnesium oxide (MAG-OX) 400 mg (241.3 mg magnesium) Tablet take 1 tablet by mouth twice a day 0 ??? cyclobenzaprine (FLEXERIL) 10 mg Tablet TK 1 T PO HS PRN 1 ??? buPROPion XL (WELLBUTRIN XL) 300 mg Tablet Extended Release 24 hr Take 300 mg by mouth Daily. ??? amitriptyline (ELAVIL) 10 mg Tablet Take 10 mg by mouth Three times a day. ??? ALPRAZolam (XANAX) 0.5 mg Tablet Take 0.5 mg by mouth Three times a day. ??? THIAMINE MONONITRATE, VIT B1, ORAL Daily ??? umeclidinium-vilanterol 62.5-25 mcg/actuation Disk with Device Inhale [...] 10-300 mg/15 mL Solution 1 tablet. ??? multivit with minerals/lutein (MULTIVITAMIN 50 PLUS ORAL) 1 tablet. ??? ARIPiprazole (ABILIFY) 5 mg Tablet Daily ??? enoxaparin (LOVENOX) 40 mg/0.4 mL Syringe Q12H ??? escitalopram (LEXAPRO) 20 mg Tablet take 1 tablet by mouth every morning 0 ??? ibuprofen (ADVIL;MOTRIN) 600 mg Tablet Every 6 hours, as needed PRN For Pain ??? CIS Free Text Med - Librium Taper/Titrate, POTaper/Titrate, PO. Take 2 (TWO)Capsule(s) (50 MG =2 Capsule(s)) Three times daily for 2 Days.Take 2 (TWO)Capsule(s) (50 MG = 2 Capsule(s)) Twice daily for 2 Days.Take 1 (ONE)Capsule(s) (25 MG = 1 Capsule(s)) Three times daily for 2 Days.Take 1 (ONE)Capsule(s) (25 MG = 1 Capsule(s)) Twice daily for 2 Days. (Patient not taking: No sig reported) ??? CIS Free Text Med - Albuterol 90 MC-2 Puff(s), Inh, PRN (Patient not taking: No sig reported) ??? azithromycin (ZITHROMAX) 250 mg tablet Taper/Titrate, POTaper/Titrate, PO. Take 2 (TWO)Tablet(s) (500 MG = 2 Tablet(s)) Once daily for 1 Day.Take 1 (ONE)Tablet(s) (250 MG = 1 Tablet(s)) Once daily for 4 Days. (Patient not taking: No sig reported) No facility-administered medications prior to visit. Adverse Drug Reactions: Allergies Allergen Reactions ??? Sulfa (Sulfonamide Antibiotics) Other (See Comments) Caused chills and sweating Review of Systems: An 11-point ROS was negative except per the HPI. Physical Examination: There were no vitals taken for this visit. 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 DIAGNOSIS A - Right lung, biopsy: ??- Pulmonary parenchyma with necrotizing granulomatous inflammation. ??- ??No malignancy is identified. ?(see Discussion.) Electronically signed by: ??MD Marisela, Albertolius Zavala Verified: ??03/10/2019 ?Pathologist Performed at: ??-[facility] [place], [place], [place] DISCUSSION AFB, GMS, OMAR, and Gram stains show no evidence of organism. Scattered yellow- pigmented fibrillary and refractile granular structures are seen within necrotic ??debris, which are favored to represent hematoidin (early heme breakdown product ??suggestive of recent hemorrhage). ??This case was also reviewed by Dr. Jauregui ??Rojelio (microbiology). Imaging: I personally reviewed the available chest imaging. Most recent CT scan shows stability to some resolution of the previously identified right lower lobe mass. Resolution of pulmonary infarctions a consideration but course has been quite prolonged. Uncertain what to make of the biopsy showing necrotizing granulomatous inflammation in the context of this. Of course is been relatively benign, GPA is a consideration. Pulmonary Function Tests: Date FVC FEV1 Ratio TLC RV RV/TLC ERV DLCO 6MWT 11/19/18 3.38 107% 2.55 103% 0.75 21.26 105% I personally reviewed flow-volume loops and other tests. Spirometry and diffusion capacity are global. Impression and Plan of Care: This is a middle-aged woman with history of pulmonary embolism and lung mass showing granulomatous inflammation with necrosis on biopsy. 1. Necrotizing granulomatous inflammation of lung 2. Polycythemia 3. Dyspnea, unspecified type Etiology of the lung mass is not entirely clear. Resolution of pulmonary infarction from pulmonary embolism is a consideration but resolution has been relatively slow and I feel that the tissue pathology is somewhat atypical. While it seems unlikely, granulomatosis with polyangiitis is a consideration. Perhaps even less likely is necrotizing sarcoidosis. Given her persistent symptoms feel limitedevaluation is appropriate. We will send labs to be drawn at [facility]. She is scheduled to see hematology in the near future and I will defer any further evaluation of her polycythemia until then. I think secondary polycythemia hypoxemia is unlikely given the available data, but further evaluation is certainly reasonable. We will plan to repeat pulmonary function testat follow-up and do a desaturation evaluation. Would also like to review recent discharge summary from [facility]. Ms. Kuhn expressed understanding and agreement of this plan. - Pulmonary Function Testing; Future - Cytoplasmic Neutrophilic Ab; Future - Myeloperoxidase Ab; Future - Proteinase-3 Antibody; Future - Protein/Creatinine Ratio, urine; Future - Urinalysis without microscopic; Future - CRP, acute inflammation; Future - Sedimentation rate; Future - Angiotensin Converting Enzyme; Future - Comprehensive metabolic panel (non-fasting); Future - CBC (with Diff); Future Follow up office visit in 4-8 weeks with PFTs. Labs faxed to [facility]. Patient verbally consents to this telephone visit and understands that this visit may be billed, similar to a clinic office visit. I provided care to the patient today via telephone call. The total time associated with this visit was 60 minutes, with much time spent reviewing prior imaging and work-up. Cameron Spence MD, PhD [facility] PULMONOLOGY AT [facility] [id number] Dept: [phone] Loc: [phone] documented in this encounter Plan of Treatment Not on file documented as of this encounter Results * Pulmonary Function Testing (06/13/2020 9:05 AM EDT) FVC Actual Pre-BD 3.02 L COMPAS PFT FVC Pre-BD % of Predicted 97 % COMPAS PFT FVC Predicted 3.10 L COMPAS PFT FVC Pre-BD Z-Score -0.17 COMPAS PFT FVC Lower Limits of Normal 2.32 L COMPAS PFT FEV1 Actual Pre-BD 2.23 L COMPAS PFT FEV1 Pre-BD % of Predicted 92 % COMPAS PFT FEV1 Predicted 2.43 L COMPAS PFT FEV1 Pre-BD Z-Score -0.54 COMPAS PFT FEV1 Lower Limits of Normal 1.82 L COMPAS PFT FEV1 / FVC Actual Pre-BD 74 % COMPAS PFT FEV1/FVC Pre-BD Z-Score -0.70 COMPAS PFT FEV1 / FVC LLN 67 % COMPAS PFT [id number] Actual Pre-BD 1.59 L/s COMPAS PFT [id number] Pre-BD % of Predicted 74 % COMPAS PFT [id number] Predicted 2.15 L/s COMPAS PFT [id number] Pre-BD Z-Score -0.78 COMPAS PFT DLCO Hb Actual Pre-BD 13.13 mL/min/mmHg COMPAS PFT DLCO Hb Pre-BD % of Predicted 65 % COMPAS PFT DLCO Hb Pre-BD Z-Score -2.62 COMPAS PFT DLCO Hb Predicted 20.18 mL/min/mmHg COMPAS PFT DLCO [facility] ACT PRE-BD 13.13 mL/min/mmHg COMPAS PFT DLCO [facility] PRE-BD % of PRED 65 % COMPAS PFT DLCO [facility] PRE-BD Z-SCORE -2.62 % COMPAS PFT DLCO [facility] Predicted 20.18 mL/min/mmHg COMPAS PFT DLCO/VA Actual Pre-BD 2.86 mL/min/mmHg /L COMPAS PFT DLCO/VA Pre-BD % of Predicted 68 % COMPAS PFT DLCO/VA Pre-BD Z-Score -2.37 COMPAS PFT DLCO/VA Predicted 4.22 mL/min/mmHg /L COMPAS PFT Narrative COMPAS PFT - 06/13/2020 9:05 AM EDT FINDINGS: FEV1, FVC, and FEV1/FVC are within normal limits. Diffusion capacity not adjusted for hemoglobin is reduced. IMPRESSION: Normal spirometry. ??The mild reduction in diffusing capacity (DLCO > 60% and < lower limit of normal) is a nonspecific finding consistent with a variety of cardiopulmonary disorders as well as anemia. ??Compared to the last study 11/19/2018, the FEV1 has decreased by 0.32 L and the FVC by 0.36 L, accompanied by a significant decrease in the diffusing capacity. Procedure Note NEW, GLATT - 06/13/2020 FINDINGS: FEV1, FVC, and FEV1/FVC are within normal limits. Diffusioncapacity not adjusted for hemoglobin is reduced. IMPRESSION: Normal spirometry. The mild reductionin diffusing capacity (DLCO > 60% and < lower limit of normal) is a nonspecific findingconsistent with a variety of cardiopulmonary disorders as well as anemia. Compared to thelast study 11/19/2018, the FEV1 has decreased by 0.32 L and the FVC by 0.36 L, accompanied by asignificant decrease in the diffusing capacity. 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
--- OUTSIDE RECORDS SUMMARY | 2023-12-08 14:52 | XMS_ITS | Encounter Summary ---
Author Organization [facility] Address [facility] [place] [address] Care Team Providers Care Mat Machine Operator Name Role Phone Genaro Bonilla DNP Primary Care Provider [phone] Encounter Details Date Type Department Care Team (Latest Contact Info) Description 08/29/2020 12:00 PM EDT TH Visit (TeleHealth) H[place] [address] Morenita Ingram MD [facility] [address] HEMATOLOGY [place] [address] Recurrent pulmonary emboli; Folic acid deficiency; Chronic low back pain without sciatica, unspecified back pain laterality Social History Tobacco Use Types Packs/Day Years Used Date Smoking Tobacco: Every Day Cigarettes 0.5 40 Smokeless Tobacco: Never Sex and Gender Information Value Date Recorded Sex Assigned at Not on file Gender Identity Not on file Sexual Orientation Not on file documented as of this encounter Progress Notes * Morenita Ingram MD - 08/29/2020 12:00 PM EDT Images from the original note were not included. [facility] [place], [place] [address] THROMBOSIS FOLLOW-UP DATE OF VISIT 08/29/2020 Patient Martina Kuhn 1955 REFERRING PHYSICIAN Genaro Bonilla APRN PRIMARY CARE PHYSICIAN Genaro Bonilla APRN MATERIAL WORKER Cameron Spence MD GENERAL SURGEON (for colonoscopy) Sherlyn Galvan DO REASON FOR CONSULTATION Evaluation of recurrent pulmonary embolism & polythemia and anticoagulation management THROMBOSIS PROBLEM LIST 1. September 2018 unprovoked [...] embolus in the left lower lobe (unprovoked) despite being compliant on rivaroxaban Tx: stopped rivaroxaban -> switched back to enoxaparin 80 mg SQ twice daily to current date Thrombophilia testing: negative Polycythemia work up: myeloid panel - neg for myeloproliferative disorder (neg JAK2, CALR, MPL mutation). Polycythemia is likely secondary to smoking. (latest CBC in 06/13- normalization of her Hg) Clinical risk factors for VTE: recent alcohol associated pancreatitis, hx of ulcerative colitis Due to COVID-19 pandemic this office visit was converted to telephone visit. Patient verbally consents to this telephone visit and understands that the visit may be billed, similar to a clinic officevisit. HISTORY OF THE PRESENT ILLNESS Martina Kuhn is a 65 y.o. woman with history of benign lung [...] her dyspnea repeat CTA was performed on 09/21/19 which showed decreased burden of her PE. Since then she has been on enoxaparin. At the time of recurrent PE there was no clear precipitated temporary risk factor such as surgery, hospitalization, immobility, trauma,travel. However, she smokes cig and drinks alcohol. There is no family history of DVT, PE. She does not take any hormone replacement therapy. She has history of ulcerative colitis, currently not on any medication. Previously she was on medication, but stopped because she could not afford the medication. She denies any rectal bleeding, but intermittent have diarrhea depending on the type of foot she eats. She did not recall when was her last colonoscopy - probably 4 years ago. In Mar 2020 she was admitted to [facility] for acute pancreatitis, likely alcohol associated. There was no evidence of gallbladder stone per her report. SHe was hospitalized for 1 1/2 week. Prior to admission for pancreatitis she drank 32 glasses of wine in 2 days for several months. Since last hospitalization she drank only a few beer. She knows that she has to quit drinking alcohol. I asked if she has enough support to help her quit drinking alcohol. She stated that she has adequate support and sheknows what to do to quit drinking alcohol. INTERIM HISTORY She is scheduled for a telephone follow-up today. Martina remains on enoxaparin and has not had any recurrent DVT or PE while on enoxaparin. She denies any bleeding issues other than bruising at enoxaparin injection sites. Previously I recommended a colonoscopy to rule out malignancy & also to check status of her IBD. She was not cleared to have her colonoscopy because of her PE. I personally called and left a message with Dr. Galvan's nurse in May 2020 that Martina is cleared to have her colonoscopy and would like her to have her colonoscopy done prior to consideration switching her anticoagulant to DOAC. In Mar 2020 she was admitted to [facility] for acute pancreatitis, likely alcohol associated. There was no evidence of gallbladder stone per her report. SHe was hospitalized for 1 1/2 week. Prior to admission for pancreatitis she drank 32 glasses of wine in 2 days for several months. Since last hospitalization she drinks 2-4 beer/day. No acute flare of pancreatitis sine last Mar 2020.She denies any abdominal pain at current time. She is an active cig smoker. She has tried to quit smoking last time I met her and went down to 4-5cig/day. She does have chronic shortness of breath on exertion. Sometimes she experiences wheezing at night. She is followed by Dr. Spence, pulmonary. Dr. Spence recently requested her outside CT for review. Previously she underwent a breast biopsy of the left breast which the result showed benign lesion. She has not had any mammogram or imaging since then. She recently has had her annual physical exam. Pap smear was done but the sample was inadequate. She will need another pap smear done the end of this month. She was recently admitted around end of June 2020 to [facility] for unresponsiveness. She was on fentanyl patch for her 3 compression fractures and she took cocaine with it and became lethargic/unresponsive. Her friend found her and she was brought to [facility], then transferred to [facility]. She is offfentanyl patch. She was also found to have mild heart attack during this hospitalization. She talked to her PCP recently about pain management. Flexeril was discussed, but not prescribed yet. She cannot take NSAIDs due to anticoagulation use. Lidocaine patch is not covered by her insurance. She has not tried tylenol. She reported 30 lbs weight loss since Mar 2020. Also could be due to change of diet to low fat dietafter pancreatitis. She denies any diarrhea/constipation or abdominal pain. Now current weight 165 lbs. THROMBOSIS RISK FACTORS Risk Factor Comment Obesity (BMI >30 kg/m2) V/A Y Diabetes V/A Current smoker V/A Y Estrogen or estrogen/progestin V/A V/A Inflammatory disease V/A y Hx of ulcerative colitis Recent surgery (<3 months) V Recent hospitalization (<3 mo) V Y For Pancreatitis Recent travel (<3 mo) V Period of [...] Hypothyroidism E03.9 ??? Folic acid deficiency E53.8 ??? Alcohol-induced acute pancreatitis K85.20 OPERATIVE PROCEDURES Past Surgical History: Procedure Laterality Date ??? BREAST BIOPSY Left 2019 [facility] B9 ??? BREAST BIOPSY Left 2019 [place] B9 ??? CT GUIDED BIOPSY LUNG 03/07/2019 CT Guided Biopsy Lung 03/07/2019 [facility] RAD CAT SCAN ??? MAMMO US BIOPSY LEFT Left 03/30/2019 Mammo Us Biopsy Left 03/30/2019 Kenzie Cevallos MD [facility] RAD MAMMOGRAPHY MEDICATIONS Outpatient Medications Marked as Taking for the 08/29/20 encounter (TH Visit (TeleHealth)) with Morenita Ingram MD Medication Sig Dispense Refill ??? naltrexone (Depade) 50 mg Tablet Take 50 mg by mouth daily. ??? omeprazole 20 mg Tablet, Delayed Release (E.C.) Take by mouth. ??? cyanocobalamin, Vitamin B-12, (Vitamin B-12) 1,000 mcg Tablet TAKE 1 TABLET BY MOUTH DAILY ??? pregabalin (LYRICA) 150 mg Capsule ??? enoxaparin (LOVENOX) 80 mg/0.8 mL Syringe Inject 80 mg subcutaneously 2 times daily. ??? folic acid (Folvite) 1 mg Tablet Take 1 tablet by mouth daily. 90 tablet 3 ??? levothyroxine (SYNTHROID) 50 mcg Tablet Take 100 mcg by mouth Daily. ??? cyclobenzaprine (FLEXERIL) 10 mg Tablet TK 1 T PO HS PRN 1 ??? ARIPiprazole (ABILIFY) 5 mg Tablet Daily ??? escitalopram (LEXAPRO) 20 mg Tablet take 1 tablet by mouth every morning 0 ADVERSE DRUG REACTIONS Allergies as of 08/29/2020 - Review Complete 08/17/2020 Allergen Reaction Noted ??? Sulfa (sulfonamide antibiotics) Other (See Comments) 11/12/2018 FAMILY HISTORY No family history of VTE Dad of [place] in his 80. SOCIAL HISTORY Lives by herself Have 2 sons. Smoker, used to smoke 1/2 PPD for 40 years,-> now 5 cig/day Alcohol use - up to 32 glasses of wine every 2 days prior to hospitalization for pancreatitis in Mar, now drinks beer 2-4 but not daily REVIEW OF SYSTEMS Fevers/chills/sweats No Recent infections No Unexplained weight loss No Headache/lightheadedness/syncope No Sinus pain/pressure No Oral sores/lesions/bleeding No Sore throat/dysphagia No Nosebleeds No Cough/SOB/chest pain/heart racing Baseline dyspnea on exertion Nausea/vomiting/dyspepsia No Abdominal pain No Diarrhea/constipation Occasional diarrhea depending on what she eats - but not recent Urinary pain, burning, incontinence No Hematuria No Vaginal discharge/bleeding No Skin rashes/ulcers No Back/joint pain/swelling Lower back pain due to compression fractures. Leg swelling/pain/redness No Bruising/petechiae/bleeding/melena Bruising at enoxaparin injection site Sensory/motor Neuropathy of hand/feet new since her pancreatitis episode Polydipsia/polyuria/heat/cold intol No Lumps/bumps/swollen glands No Other Fatigue PHYSICAL EXAMINATION Weight 165 lbs (75 kg) LABORATORY STUDIES None RADIOGRAPHIC STUDIES No new imaging today IMPRESSION Martina Kuhn is a 65 y.o. woman with history of anxiety/depression, hypothyroidism, smoker, benign lung and breast mass, recurrent pulmonary embolism, left upper extremity DVT, history of ? ulcerative colitis, alcohol induced pancreatitis (Apr 15), recent hospitalization for unresponsiveness due to fentanyl+ cocaine use, compression fractures, who is here for follow up to discuss anticoagulation management. Her initial left UE DVT [...] later showed improvement of her pulmonary embolism. Her work up for thrombosis so far is unrevealing. Her thrombophilia testing did not show any evidence of thrombophilia. We also completed work up for her polycythemia. Her myeloid seq panel did not show any evidence of mutation that would suggest myeloproliferative disorder. Her polycythemia was likely secondary to hypoxemia state. Last repeat CBC in June 13 which showed resolution of her polycythemia and her macrocytosis likely due to folic acid/vitamin B12 deficiency has resolved after folicacid supplement. She has history of IBD which is generally associated with higher risk for VTE and also associated with risk for colorectal cancer. Therefore,I recommend her to complete her colonoscopy sooner than later. I have personally called her general surgeon's office 3 months ago that she is cleared to have her colonoscopy done, but this has not scheduled yet. Martina said that sometimes her voicemail does not work if somebody left message for her. I told her to call their office today. Anticoagulation failure is generally rare. Usually it would occur in patient with active malignancyor acquired thrombophilia such as antiphospholipid syndrome which she does not have. Her malignancywork up has been negative so far, but I am still concerned whether we have missed any malignancy orany systemic inflammatory process. She is being followed by Dr. Spence for her lung lesion and she will need to have a repeat mammogram, repeat PAP, and screening colonoscopy to rule out malignancy prior consideration of switching her anticoagulant back to oral anticoagulant. If her work up is negative, I am still favor to switch her to DOAC over warfarin. I think warfarin management would be challenging with her given her history of alcohol use etc.Although there is no data to support that one DOAC is better than the other, but apixaban may be a better choice than rivaroxaban because apixaban does not rely on food absorption and also is safer to use if there is any issues with renal insufficiency. We also discussed about her alcohol intake and advised her not to drink alcohol. I explained to herthat pancreatitis is associated with thrombosis risk due to significant inflammation. She also should work on tobacco cessation. In the meantime, I asked her to continue enoxaparin 80 mg SQ twice daily and I hope that we can transition her to oral anticoagulant after her GI evaluation and complete work up to rule out malignancy. PLAN/RECOMMENDATIONS 1. Continue enoxaparin 80 mg SQ twice daily for now - Will consider switching back to oral anticoagulant (preferable apixaban 5 mg PO BID) after completion of several work up to rule out malignancy (pending mammogram, PAP smear, colonoscopy and followup CT of lung lesion). Will call PCP's office to discuss that Martina needs to complete age appropriate cancer screening. 2. Discussed tobacco & alcohol cessation 3. Recommend GI evaluation - colonoscopy to evaluate status of ulcerative colitis and rule out malignancy (personally discussed with Dr. Balbuena's office in May 2020) - I asked her to call Dr. Galvan's office to schedule her colonoscopy. We will also call Dr. Galvan's office again as well. - enoxaparin can be stopped 24 hours prior to colonoscopy and restart 12 hours after if there is nobleeding 4. She will meet with her new PCP and will discuss other routine screening testing. 5. Continue folic acid and vitamin B12 supplement 6. For pain management - can consider tylenol, diclofenac gel, lidocaine patch, flexeril, but I will defer this to her PCP. Martina Kuhn had the opportunity to ask questions and indicated that all her questions were answered to her satisfaction. Will arrange follow-up in 2-3 months. I provided care to the patient via telephone call. Total time of care: 20 minutes. Morenita Ingram MD documented in this encounter Plan of Treatment Not on file documented as of this encounter Visit Diagnoses Diagnosis Recurrent pulmonary emboli Other pulmonary embolism and infarction Folic acid deficiency Other B-complex deficiencies Chronic low back pain without sciatica, unspecified back pain laterality documented in this encounter Care Teams Mat Machine Operator Relationship Specialty Start Date End Date Genaro Bonilla DNP PCP - General Family Medicine 11/12/18 10/03/20 documented as of this encounter
--- OUTSIDE RECORDS SUMMARY | 2023-12-08 14:52 | XMS_ITS | Encounter Summary ---
Author Organization [facility] Address [facility] [place] [address] Care Team Providers Care Property Claims Manager Name Role Phone Nancy Shrestha APRN Primary Care Provider Encounter Details Date Type Department Care Team (Latest Contact Info) Description 03/11/2021 3:00 PM EST TH Visit (TeleHealth) [place] [address] Cameron Spence MD [facility] DR PULMONARY [place] [address] Necrotizing granulomatous inflammation of lung (Primary Dx); Cigarette nicotine dependence without complication Social History Tobacco Use Types Packs/Day Years Used Date Smoking Tobacco: Every Day Cigarettes 0.5 40 Smokeless Tobacco: Never Sex and Gender Information Value Date Recorded Sex Assigned at Not on file Gender Identity Not on file Sexual Orientation Not on file documented as of this encounter Progress Notes * Cameron Spence MD - 03/11/2021 3:00 PM EST Images from the original note were not included. [facility] Section of Pulmonary and Critical Care Medicine Outpatient Consultation Date of Encounter: 03/11/2021 PCP: Nancy Shrestha APRN Reason for Evaluation: Ms. Martina Kuhn follows up with the [facility] today for this telephone visit for abnormal chest imaging. She was last seen 08/17/2020. I independently interviewed and examined the patient in the office and have reviewed available records. At the time of this encounter she was physically in [place]. She verbally consented to this telephone visit and understands that this visit may be billed, similar to a clinic office visit. History of Present Illness: I was able to connect with Ms. Kuhn on a telephone call today. She tells me that she is done well since I saw her last. She has not had any significant medical setbacks in this period of time. She is working with the [employer] quit line to stop smoking. She followed up with a CT scan of her chest in September 2020. Unfortunately, results of the test had not been sent to me. While the radiologist comments on persistence of nodule and suggest PET scan, nodule has been present for extended interval of time is demonstrating evidence of calcification has previously been PET scanned and biopsied. She was prescribed albuterol by another provider and she is using periodically with some improvements in exertional dyspnea. She has been fully immunized for COVID-19 and had a booster immunization. I reviewed medical, surgical family and social histories and updated the chart as indicated. Assist light while you are taken shower and everything is. I do this and multitask Past Medical and Surgical History: Past Medical History: Diagnosis Date ??? Anxiety ??? Breast mass 11/11/2019 ??? Colitis ??? Depression ??? Hypothyroidism 11/11/2019 ??? Lung mass ??? Pulmonary embolism Past Surgical History: Procedure Laterality Date ??? BREAST BIOPSY Left 2019 [facility] B9 ??? BREAST BIOPSY Left 2019 [place] B9 ??? CT GUIDED BIOPSY LUNG 03/07/2019 CT Guided Biopsy Lung 03/07/2019 [facility] RAD CAT SCAN ??? MAMMO US BIOPSY LEFT Left 03/30/2019 Mammo Us Biopsy Left 03/30/2019 Kenzie Cevallos MD [facility] RAD MAMMOGRAPHY Family History: Family History Negative [...] Social Determinants of Health Financial Resource Strain: Not on file Food Insecurity: Not on file Transportation Needs: Not on file Physical Activity: Not on file Housing Stability: Not on file Current Medications at Start of Encounter: Outpatient Medications Prior to Visit Medication Sig Dispense Refill ??? lovastatin (MEVACOR) 20 mg Tablet Take 20 mg by mouth nightly. ??? naltrexone (Depade) 50 mg Tablet Take 50 mg by mouth daily. ??? omeprazole 20 mg Tablet, Delayed Release (E.C.) Take by mouth. BID ??? cyanocobalamin, Vitamin B-12, (Vitamin B-12) 1,000 mcg Tablet TAKE 1 TABLET BY MOUTH DAILY ??? pregabalin (LYRICA) 150 mg Capsule 150 mg 2 times daily. ??? folic acid (Folvite) [...] Other (See Comments) Caused chills and sweating Physical Examination: There were no vitals taken for this visit. No exam for this telehealth encounter Labs: No new blood work was available for my review. Past Pathology: DIAGNOSIS A - Right lung, biopsy: ??- Pulmonary parenchyma with necrotizing granulomatous inflammation. ??- ??No malignancy is identified. ?(see Discussion.) Electronically signed by: ??MD Marisela, Alberto Zavala Verified: ??03/10/2019 ?Pathologist Performed at: ??-[facility] [place] Dept. of Pathology, [place], [place] DISCUSSION AFB, GMS, OMAR, and Gram [...] demonstrated mass in the right lower lobe. Nodule, which was biopsied with tissue showing granulomatous change (see above) initially emerged from area of consolidative change identified on CT scan in September 2018. Since this time the nodule has decreased in size and appearance of calcific changes internally. 09/201810/23/2020 Pulmonary Function Tests: Date FVC FEV1 Ratio [...] biopsy. 1. Necrotizing granulomatous inflammation of lung We discussed the diagnostic possibilities for the nodule in her left lower lobe. Previous biopsy with granulomatous changes. We discussed that malignancy is a consideration but felt much less likely given decrease in size of the nodule over time but this cannot be excluded without additional biopsyor resection. I will review imaging with interventional pulmonary. At this point low dose CT screening annually is appropriate. 2. Cigarette nicotine dependence without complication I encouraged her efforts at tobacco cessation. She is working on starting nicotine replacement therapy with her PCP. Getting ongoing counseling from the state quit line. We reviewed the natural history of successful tobacco sensation which often requires multiple quit attempts. We discussed common event of relapse and managing a relapse with new attempt at cessation with minimal delay. We also discussed the importance of promoting habit change including reading at home of all smoking materials including ashtrays or other paraphernalia. Follow up office visit or telehealth visit in 3 months Cameron Spence MD, PhD [facility] [address] Dept: [phone] Loc: [phone] documented in this encounter Plan of Treatment Not on file documented as of this encounter Visit Diagnoses Diagnosis Necrotizing granulomatous inflammation of lung- Primary Cigarette nicotine dependence without complication Tobacco use disorder documented in this encounter Care Teams Property Claims Manager Relationship Specialty Start Date End Date Nancy Shrestha, [employer] [address] [place] [address] PCP - General Family Medicine 10/04/20 documented as of this encounter
--- OUTSIDE RECORDS SUMMARY | 2023-12-08 14:52 | XMS_ITS | Encounter Summary ---
[place] [address] Care Team Providers Care Scow Hand Name Role Phone Nancy Shrestha APRN Primary Care Provider [phone] Encounter Details Date Type Department Care Team (Late st Contact Info) Description 03/29/2021 Telephone [place] [phone] Kimberley Lozano Social History Tobacco Use Types [...] on filedocumented in this encounter Care Teams Scow Hand Relationship Specialty Start Date End Date Nancy Shrestha APRN [address] [place], [place] [address] PCP - General Family Medicine 10/04/20 documented as of this encounter
--- OUTSIDE RECORDS SUMMARY | 2023-12-08 14:52 | XMS_ITS | Encounter Summary ---
Author Organization [facility] Address [facility] [place] [address] Care Team Providers Care Securities Vault Supervisor Name Role Phone Nancy Shrestha APRN Primary Care Provider Encounter Details Date Type Department Care Team (Latest Contact Info) Description 12/18/2020 10:00 AM EDT TH Visit (TeleHealth) [place] [address] Morenita Ingram MD [facility] [address] [place] [address] Recurrent pulmonary embolism Social History Tobacco Use Types Packs/Day Years Used Date Smoking Tobacco: Every Day Cigarettes 0.5 40 Smokeless Tobacco: Never Sex and Gender Information Value Date Recorded Sex Assigned at Not on file Gender Identity Not on file Sexual Orientation Not on file documented as of this encounter Progress Notes * Morenita Ingram MD - 12/18/2020 10:00 AM EDT Images from the original note were not included. [facility] [place], [place] [address] THROMBOSIS FOLLOW-UP DATE OF VISIT 12/18/2020 Patient Martina Kuhn 1955 REFERRING PHYSICIAN Nancy Shrestha APRN PRIMARY CARE PHYSICIAN Nancy Shrestha APRN SHELLFISH SORTER Cameron Spence MD GENERAL SURGEON (for colonoscopy) Sherlyn Stoibert, DO REASON FOR CONSULTATION Evaluation of recurrent [...] risk factors for VTE: recent alcohol associated pancreatitis Due to COVID-19 pandemic this office visit [...] seen in consultation at the request of Nancy Shrestha APRN for evaluation of recurrent PE and anticoagulation management.The history is obtained from the patient, and I have reviewed extensive medical records [...] In Mar 2020 she was admitted to [facility] for acute pancreatitis, likely alcohol associated. There [...] what to do to quit drinking alcohol. She was admitted around end of June 2020 to [facility] for unresponsiveness. She was on fentanyl patch forher 3 compression fractures and she took cocaine with it and became lethargic/unresponsive. Her friend found her and she was brought to [facility], then transferred to [facility]. She is off fentanylpatch. She was also found to have mild heart attack during this hospitalization. INTERIM HISTORY She is scheduled for a telephone follow-up today. Martina remains on enoxaparin and has not had any recurrent DVT or PE while on enoxaparin. She denies any bleeding issues other than bruising at enoxaparin injection sites. Previously I recommended a colonoscopy to rule out malignancy & also to check status of her IBD. She underwent a screening colonoscopy and EGD on 12/04/20. I received the result of her colonoscopy. There was no evidence of malignancy nor active IBD. The pathology of one of the polyp was a tubular adenoma. Previously she underwent a breast biopsy of the left breast which the result showed benign lesion. She stated that she has an up to date mammogram and also had a PAP smear (previous pos + HPV ASCUS).She stated that there is no concern of malignancy. She is an active cig smoker. She has tried to quit smoking last time I met her and went down to 4-5cig/day. She does have chronic shortness of breath on exertion.She is followed by Dr. Spence, pulmonary. Last telephone note of Dr. Spence mentioned a repeat imaging. She believed that she has had a repeat imaging since then and thought that everything was stable, but I did not see the follow- up notefrom Dr. Spence in the chart. Since Mar 2020 she has not had a recurrent pancreatitis. She has cut down her alcohol intake, but admitted that she still drinks 2-3 drinks/week. THROMBOSIS RISK FACTORS Risk Factor Comment Obesity (BMI >30 kg/m2) V/A Y Diabetes V/A Current smoker V/A Y Estrogen or estrogen/progestin V/A V/A Inflammatory disease V/A Hx of ulcerative colitis - but not seen on recent colonoscopy. 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 Alcohol-induced acute pancreatitis K85.20 ??? Compression fracture of lumbar vertebra, non-traumatic M48.56XA OPERATIVE PROCEDURES Past Surgical History: Procedure Laterality Date ??? BREAST BIOPSY Left 2019 [facility] B9 ??? BREAST BIOPSY Left 2019 [place] B9 ??? CT GUIDED BIOPSY LUNG 03/07/2019 CT Guided Biopsy Lung 03/07/2019 [facility] RAD CAT SCAN ??? MAMMO US BIOPSY LEFT Left 03/30/2019 Mammo Us Biopsy Left 03/30/2019 Kenzie Cevallos MD [facility] RAD MAMMOGRAPHY MEDICATIONS No outpatient medications have been marked as taking for the 12/18/20 encounter (Appointment) with Morenita Ingram MD. ADVERSE DRUG REACTIONS Allergies as of 12/18/2020 - Review Complete 08/29/2020 Allergen Reaction Noted ??? Sulfa (sulfonamide antibiotics) Other (See Comments) 11/12/2018 FAMILY HISTORY No family history of VTE Dad of [place] in his 80. SOCIAL HISTORY Lives by herself Have 2 sons. Smoker, used to smoke 1/2 PPD for 40 years,-> now 5 cig/day Alcohol use - up to 32 glasses of wine every 2 days prior to hospitalization for pancreatitis in Mar, now drinks beer 2-3 drinks/week REVIEW OF SYSTEMS Fevers/chills/sweats No Recent infections [...] B12 deficiency has resolved after folicacid supplement. In interim, I have recommended her to complete work up to rule out malignancy. She has an up to date mammogram, PAP and recent EGD/colonoscopy which did not show any evidence of active malignancy. I will need to double check with Dr. Spence regarding her lung lesion. If there is no concern of activemalignancy, then we will switch her anticoagulant back to oral anticoagulant. I am still favor to switch her to DOAC over warfarin. I think warfarin management would be challenging with her given her history of alcohol use etc.Although there is no data to support that one DOACis better than the other, but apixaban may [...] She also should work on tobacco cessation. PLAN/RECOMMENDATIONS 1. Candidate for long-term anticoagulation - Continue enoxaparin 80 mg SQ twice daily for now - Will consider switching back to oral anticoagulant (preferable apixaban 5 mg PO BID) after discussing with Dr. Spence 2. Discussed tobacco & alcohol cessation Martina Kuhn had the opportunity to ask questions and indicated that all her questions were answered to her satisfaction. I will call her next week after discussing with Dr. Spence regarding her lung lesion. I provided care to the patient via telephone call. Total time of care: 20 minutes. Morenita Ingram MD documented in this encounter Plan of Treatment Not on file documented as of this encounter Visit Diagnoses Diagnosis Recurrent pulmonary embolism Other pulmonary embolism and infarction documented in this encounter Care Teams Securities Vault Supervisor Relationship Specialty Start Date End Date Nancy Shrestha, DREA [address] [place] [address] PCP - General Family Medicine 10/04/20 documented as of this encounter
--- OUTSIDE RECORDS SUMMARY | 2023-12-08 14:52 | XMS_ITS | Encounter Summary ---
Author Organization [facility] [address] Care Team Providers Care Truck Driving Instructor Name Role Phone Genaro Bonilla DNP Primary Care Provider Encounter Details Date Type Department Care Team (Late st Contact Info) Description 11/25/2019 Tele[place] [phone] Keira Menard LNA Social History Tobacco Use Types Packs/Day Years Used Date Smoking Tobacco: Former Cigarettes 0.5 40 0 10/18/1978 - 10/18/2018 Smokeless Tobacco: Never Sex and Gender Information Value Date Recorded Sex Assigned at Not on file Gender Identity Not on file Sexual Orientation Not on file documented as of this encounter Miscellaneous Notes * Telephone Encounter - Keira Menard LNA - 11/25/2019 1:06 PM EDT LM for pt to call us back to schedule pfts and tele visit with Dr. Spence next few weeks. documented in this encounter Plan of Treatment Not on file documented as of this encounter Visit Diagnoses Not on filedocumented in this encounter Care Teams Truck Driving Instructor Relationship Specialty Start Date End Date Genaro Bonilla DNP PCP - General Family Medicine 11/12/18 10/03/20 documented as of this encounter
--- OUTSIDE RECORDS SUMMARY | 2023-12-08 14:52 | XMS_ITS | Encounter Summary ---
Author Organization [facility] Address [facility] [place] [address] Care Team Providers Care Demonstrator Sewing Techniques Name Role Phone Genaro Bonilla DNP Primary Care Provider Encounter Details Date Type Department Care Team (Latest Contact Info) Description 06/13/2020 8:40 AM EDT - 06/13/2020 11:59 PM EDT Hospital [place] [phone] Necrotizing granulomatous inflammation of lung Discharge Disposition: Home Social History Tobacco Use Types Packs/Day Years Used Date Smoking Tobacco: Every Day Cigarettes 0.5 40 Smokeless Tobacco: Never Sex and Gender Information Value Date Recorded Sex Assigned at Not on file Gender Identity Not on file Sexual Orientation Not on file documented as of this encounter Medications at Time of Discharge Medication Sig Dispensed Refills Start Date End Date cyanocobalamin, Vitamin B-12, (Vitamin B-12) 1,000 mcg Tablet TAKE 1 TABLET BY MOUTH DAILY 03/25/2020 pregabalin (LYRICA) 150 mg Capsule 150 mg 2 times daily. 06/10/2020 levothyroxine (SYNTHROID) 50 mcg Tablet Take 100 mcg by mouth Daily. cyclobenzaprine (FLEXERIL) 10 mg Tablet TK 1 T PO HS PRN 1 01/14/2019 ARIPiprazole (ABILIFY) 5 mg Tablet Daily 06/23/2018 escitalopram (LEXAPRO) 20 mg Tablet take 1 tablet by mouth every morning 0 08/23/2018 enoxaparin (LOVENOX) 80 mg/0.8 mL Syringe Inject 80 mg subcutaneously 2 times daily. 01/09/2021 folic acid (Folvite) 1 mg Tablet Take 1 tablet by mouth daily. 90 tablet 3 11/28/2019 03/28/2021 documented as of this encounter Plan of Treatment Not on file documented as of this encounter Procedures Procedure Name Priority Date/Time Associated Diagnosis Comments COMMON PULMONARY FUNCTION TEST Routine 06/13/2020 9:05 AM EDT Necrotizing granulomatous inflammation of lung documented in this encounter Results * Pulmonary Function Testing [...] / FVC LLN 67 % COMPAS PFT NKO62-55 Actual Pre-BD 1.59 L/s COMPAS PFT EHC39-59 Pre-BD % of Predicted 74 % COMPAS PFT ZEL71-48 Predicted 2.15 L/s COMPAS PFT XPO68-94 Pre-BD Z-Score -0.78 COMPAS PFT DLCO Hb [...] Diagnoses Diagnosis Necrotizing granulomatous inflammation of lung documented in this encounter Care Teams Demonstrator Sewing Techniques Relationship Specialty Start Date End Date Genaro Bonilla DNP PCP - General Family Medicine 11/12/18 10/03/20 documented as of this encounter
--- OUTSIDE RECORDS SUMMARY | 2023-12-08 14:52 | XMS_ITS | Encounter Summary ---
[place] [address] Care Team Providers Care Linen Checker Name Role Phone Genaro Bonilla DNP Primary Care Provider Encounter Details Date Type Department Care Team (Late st Contact Info) Description 08/24/2020 Telephone [place] [phone] Minoo Cadet Social History Tobacco Use Types Packs/Day Years [...] on filedocumented in this encounter Care Teams Linen Checker Relationship Specialty Start Date End Date Genaro Bonilla DNP PCP - General Family Medicine 11/12/18 10/03/20 documented as of this encounter
--- OUTSIDE RECORDS SUMMARY | 2023-12-08 14:52 | XMS_ITS | Encounter Summary ---
Author Organization [facility] Address [facility] [place] [address] Care Team Providers Care Cut Out Operator Name Role Phone Genaro Bonilla DNP Primary Care Provider Encounter Details Date Type Department Care Team (Late st Contact Info) Description 10/18/2019 Telephone [place] [address] Cameron Spence MD [facility] [place] [address] Social History Tobacco Use Types Packs/Day Years Used Date Smoking Tobacco: Former Cigarettes 0.5 40 0 10/18/1978 - 10/18/2018 Smokeless Tobacco: Never Sex and Gender Information Value Date Recorded Sex Assigned at Not on file Gender Identity Not on file Sexual Orientation Not on file documented as of this encounter Miscellaneous Notes * Telephone Encounter - Cameron Spence MD - 10/18/2019 3:31 PM EDT Pulmonary Phone Note I reviewed blood work with Ms. Kuhn. ANCA and MARY normal. Mild elevation ins AST/ALT. Persistent elevation in hemoglobin with macrocytosis. Probably normal renal function without proteinuria and only a few RBC. She does not presently have follow up scheduled with me, tell me she cancelled the 10/25 visit that was scheduled. Cameron Spence MD, PhD Staff Physician Pulmonary and Critical Care Medicine 3:31 PM 10/18/2019 documented in this encounter Plan of Treatment Not on file documented as of this encounter Visit Diagnoses Not on filedocumented in this encounter Care Teams Cut Out Operator Relationship Specialty Start Date End Date Genaro Bonilla DNP PCP - General Family Medicine 11/12/18 10/03/20 documented as of this encounter
--- OUTSIDE RECORDS SUMMARY | 2023-12-08 14:52 | XMS_ITS | Encounter Summary ---
Author Organization [facility] Address [facility] [place] [place] [address] Care Team Providers Care Diamond Selector Name Role Phone Nancy Shrestha APRN Primary Care Provider Encounter Details Date Type Department Care Team (Late st Contact Info) Description 10/23/2020 Ancillary Procedure Radiology Library at [facility] [place] [address] Cameron Spence MD [facility] [place] [address] Social History Tobacco Use Types Packs/Day Years [...] FILM LIBRARY STORAGE ONLY CT CHEST Routine 10/23/2020 12:00 AM EDT documented in this encounter Results * Film Library- Storage Only CT Chest (10/23/2020 12:00 AM EDT) Narrative CHARISSA - 10/24/2020 3:26 AM EDT This exam is auto-finalizing. It's purpose is for storage only. Cameron Spence MD IMG FILM LIBRARY ORD ERABLES [facility] [place] documented in this encounter Visit Diagnoses Not on filedocumented in this encounter Care Teams Diamond Selector Relationship Specialty Start Date End Date Nancy Shrestha, DREA [address] [place] [address] PCP - General Family Medicine 10/04/20 documented as of this encounter
--- OUTSIDE RECORDS SUMMARY | 2023-12-08 14:52 | XMS_ITS | Encounter Summary ---
Author Organization [facility] Address [facility] [place] [address] Care Team Providers Care Assistant Sales Manager Name Role Phone Genaro Bonilla DNP Primary Care Provider Encounter Details Date Type Department Care Team (Late st Contact Info) Description 08/23/2020 Orders [place] [address] Cameron Spence MD [facility] [place] [address] Lung mass (Primary Dx) Social History Tobacco [...] chest documented in this encounter Care Teams Assistant Sales Manager Relationship Specialty Start Date End Date Genaro Bonilla DNP PCP - General Family Medicine 11/12/18 10/03/20 documented as of this encounter
--- OUTSIDE RECORDS SUMMARY | 2023-12-08 14:52 | XMS_ITS | Encounter Summary ---
Author Organization [facility] Address [facility] [place] [address] Care Team Providers Care Government Clerk Name Role Phone Genaro Bonilla DNP Primary Care Provider Encounter Details Date Type Department Care Team (Late st Contact Info) Description 11/11/2019 Telephone Hematology [place] [address] Yadi Kendall, RN Social History Tobacco Use Types Packs/Day Years Used Date Smoking Tobacco: Former Cigarettes 0.5 40 0 10/18/1978 - 10/18/2018 Smokeless Tobacco: Never Sex and Gender Information Value Date Recorded Sex Assigned at Not on file Gender Identity Not on file Sexual Orientation Not on file documented as of this encounter Miscellaneous Notes * Telephone Encounter - Yadi Kendall RN - 11/11/2019 11:38 AM EDT TC to patient. ?? Reviewed negative testing that was available, not all testing was completed to date ?? Relayed recommendations to start folic acid supplement. ?? Continue lovenox. ?? Patient in agreement to changing elina't on 11/28/19 to a phone elina't. Yadi Kendall MSN RN ===View-only below this line=== ----- Message ----- From: Morenita Ingram MD Sent: 11/11/2019 11:24 AM EDT To: Yadi Kendall RN PS: can you change f/u to phone f/u. Yadi: can you call her and recommend her to take folic acid 1 mg PO daily (she can get this over the counter) for folic acid deficiency? Most of the testing is neg, but not all are back. I am ok to switch her next appointment to phone f/u instead of in person. She should continue her enoxaparin. Thanks, Morenita PLAN/RECOMMENDATIONS 1. Continue enoxaparin 80 mg SQ [...] in 3 months. 6. Discussed tobacco cessation documented in this encounter Plan of Treatment Not on file documented as of this encounter Visit Diagnoses Not on filedocumented in this encounter Care Teams Government Clerk Relationship Specialty Start Date End Date Genaro Bonilla DNP PCP - General Family Medicine 11/12/18 10/03/20 documented as of this encounter
--- OUTSIDE RECORDS SUMMARY | 2023-12-08 14:52 | XMS_ITS | Encounter Summary ---
Author Organization [facility] Address [facility] [place] [address] Care Team Providers Care Boat Designer Name Role Phone Genaro Bonilla MARTIN Primary Care Provider [phone] Reason for Visit * Reason Onset Date Comments Other 08/24/[address] images are in from [facility] Encounter Details Date Type Department Care Team (Late st Contact Info) Description 08/24/2020 [place] [phone] Brittnee Pope RN Other (Chest CT images are in from [facility]) Social History Tobacco Use Types Packs/Day Years Used Date Smoking Tobacco: Every Day Cigarettes 0.5 40 Smokeless Tobacco: Never Sex and Gender Information Value Date Recorded Sex Assigned at Not on file Gender Identity Not on file Sexual Orientation Not on file documented as of this encounter Miscellaneous Notes * Telephone Encounter - Brittnee Pope RN - 08/24/2020 2:14 PM EDT I have called [facility] to retrieve chest CT images from ~06/2020. The images are now in Pts chart for Dr. Spence review. I have called Pt, LVM, instructing her to NOT get the chest CT until she has another discussion with Dr. Spence first, as well as, I have notified her that I was able to retrieve images from [facility]. Brittnee Pope RN Department of Pulmonary 5C, [facility] / Pager: [phone] documented in this encounter Plan of Treatment Not on file documented as of this encounter Visit Diagnoses Not on filedocumented in this encounter Care Teams Boat Designer Relationship Specialty Start Date End Date Genaro Bnoilla DNP PCP - General Family Medicine 11/12/18 10/03/20 documented as of this encounter
--- OUTSIDE RECORDS SUMMARY | 2023-12-08 14:52 | XMS_ITS | Encounter Summary ---
Author Organization [facility] Address [facility] [place] [address] Care Team Providers Care Gunite Nozzle Operator Name Role Phone Genaro Bonilla DNP Primary Care Provider [phone] Reason for Visit * Reason Comments Follow-up Encounter Details Date Type Department Care Team (Latest Contact Info) Description 06/13/2020 12:00 PM EDT Office Visit [place]ematology [place] [address] Morenita Ingram MD 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 [facility] [place], [place] [address] THROMBOSIS FOLLOW-UP DATE OF VISIT 06/13/2020 Patient Martina Kuhn 1955 REFERRING PHYSICIAN Genaro oBnilla APRN PRIMARY CARE PHYSICIAN Genaro Bonilla APRN REGISTERED DENTAL ASSISTANT RDA Cameron Spence MD GENERAL SURGEON (for colonoscopy) [...] mutation). Polycythemia is likely secondary to hypoxemia Clinical risk factors for VTE: recent alcohol associated pancreatitis, hx of ulcerative colitis HISTORY OF THE PRESENT ILLNESS Martina Kuhn [...] last colonoscopy - probably 4 years ago. INTERIM HISTORY She returns for follow-up today. She was seen by Dr. Spence, graphite grinder earlier. Martina remains on enoxaparin and has not had any recurrent DVT or PE while on enoxaparin. She denies any bleeding issues other than bruising at enoxaparin injection sites. Previously I recommended a colonoscopy to rule out malignancy & also to check status of her IBD. She was not cleared to have her colonoscopy because of her PE. In Mar 2020 she was admitted to [facility] for acute pancreatitis, likely alcohol associated. [...] what to do to quit drinking alcohol. Currently she denies any abdominal pain. Since dischargeshe experiences neuropathy in her hands/legs. She was prescribed Lyrica but did not feel that this works. She is an active cig smoker. She has tried to quit smoking last time I met her and went down to 1-2cig/day. She is now back to 1/2 PPD. She does have chronic shortness of breath on exertion. Sometimes she experiences wheezing at night. She recently has had her annual physical exam. Pap smear was done but the sample was inadequate. She will need another pap smear done the end of this month. Previously she underwent a breast biopsy of the left breast which the result showed benign lesion. She has not had any mammogram or imaging since then. THROMBOSIS RISK FACTORS Risk Factor Comment Obesity [...] LUNG 03/07/2019 CT Guided Biopsy Lung 03/07/2019 [facility] RAD CAT SCAN ??? MAMMO US BIOPSY LEFT Left 03/30/2019 Mammo Us Biopsy Left 03/30/2019 Kenzie Cevallos MD [facility] RAD MAMMOGRAPHY MEDICATIONS Current Outpatient Medications on File Prior [...] tablet by mouth every morning 0 No current facility-administered medications on file prior to visit. ADVERSE DRUG REACTIONS Allergies as of 06/13/2020 - Review Complete 06/13/2020 Allergen Reaction Noted ??? Sulfa (sulfonamide antibiotics) Other (See Comments) 11/12/2018 FAMILY HISTORY No family history of VTE Dad of [place] in his 80. SOCIAL HISTORY Lives by herself Have 2 sons. Smoker, used to smoke 1/2 PPD for 40 years, Alcohol use - up to 32 glasses of wine every 2 days prior to hospitalization for pancreatitis in Mar, now a few beer since discharge. REVIEW OF SYSTEMS Fevers/chills/sweats No Recent infections [...] glands No Other Fatigue PHYSICAL EXAMINATION BP 105/67 Pulse 80 Temp 37.2 ??C (99 ??F) (Temporal) Ht 163.3 cm (5' 4.29) Wt 75.8 kg (167lb 1.7 oz) SpO2 100% BMI 28.43 kg/m?? GENERAL: Well-appearing, articulate white female. HEENT: Wearing mask NECK: Supple; no cervical, supraclavicular or submental adenopathy. BREASTS: Exam deferred. CHEST/LUNGS: Clear to auscultation. No rales, rhonchi, wheezes. HEART: Regular rate and rhythm; no murmur, rub, gallop GASTROINTESTINAL: Abdomen soft, mild tenderness on palpation mid epigastric area GENITOURINARY: Exam deferred. EXTREMITIES: No clubbing, cyanosis or edema. No erythema, tenderness or palpable cords. No venous varicosities. MUSCULOSKELETAL: Spine nontender. No acutely inflamed joints. SKIN: ecchymoses At enoxaparin injeciotn sites. No, petechiae, ulcers or rashes. LYMPH: No palpable lymph nodes. NEUROLOGIC: Alert, oriented. Speech clear, coherent. No focal deficit PSYCHIATRIC: Appropriate affect, no apparent distress. LABORATORY STUDIES Ref. Range 11/08/2019 11:32 11/08/2019 11:32 06/13/2020 12:37 WBC Latest Ref Range: 4.0 - 9.5 x10(3)/mcL 6.9 7.0 RBC Latest Ref Range: 4.00 - 5.21 x10(6)/mcL 3.95 (L) 4.06 Hemoglobin Latest Ref Range: 11.7 - 15.5 gm/dL 15.8 (H) 13.5 Hematocrit Latest Ref Range: 35.7 - 45.8 % 45.9 (H) 39.8 MCV Latest Ref Range: 82.6 - 94.4 fL 116.2 (H) 98.0 (H) MCH Latest Ref Range: 27.1 - 32.0 pg 40.0 (H) 33.3 (H) MCHC Latest Ref Range: 31.7 - 35.0 gm/dL 34.4 33.9 RDWSD Latest Ref Range: 37.0 - 46.0 fL 60.1 (H) 46.5 (H) RDWCV Latest Ref Range: 11.5 - 14.1 % 13.8 13.0 Platelets Latest Ref Range: 145 - 357 x10(3)/mcL 358 (H) 358 (H) 282 Ref. Range 06/13/2020 12:37 Sodium Latest Ref Range: 135 - 145 mmol/L 141 Potassium Latest Ref Range: 3.5 - 5.0 mmol/L 3.6 Chloride Latest Ref Range: 98 - 107 mmol/L 108 (H) CO2 Latest Ref Range: 22 - 31 mmol/L 24 Anion Gap Latest Ref Range: 5 - 15 mmol/L 9 BUN Latest Ref Range: 8 - 18 mg/dL 9 Creatinine Latest Ref Range: 0.70 - 1.20 mg/dL 0.67 (L) Estimated GFR Latest Ref Range: >=60 mL/min/1.73 m?? 94 Calcium Latest Ref Range: 8.5 - 10.5 mg/dL 9.7 Glucose Lvl Latest Ref Range: 65 - 199 mg/dL 94 Total Protein Latest Ref Range: 6.1 - 8.0 gm/dL 6.6 Albumin Latest Ref Range: 3.2 - 5.2 gm/dL 4.2 Total Bilirubin Latest Ref Range: 0.2 - 1.3 mg/dL 0.3 Alk Phos Latest Ref Range: 35 - 105 unit/L 69 AST Latest Ref Range: 0 - 30 unit/L 15 ALT Latest Ref Range: 0 - 30 unit/L 12 Lipase Latest Ref Range: 0 - 60 unit/L 74 (H) Folate Lvl Latest Ref Range: 4.8 - 24.2 ng/mL 16.4 Vitamin B-12 Latest Ref Range: 232 - 1,245 pg/mL 348 Ref. Range 06/13/2020 12:37 CRP Latest Ref Range: <=4.9 mg/L 5.5 (H) Outside lab 10/17/19 : folic acid level low 4 ng/mL (8.6-20) Vitamin B12 310 pg/mL (193-986) RADIOGRAPHIC STUDIES No new imaging today IMPRESSION Martina Kuhn is a 65 y.o. woman with history of anxiety/depression, hypothyroidism, smoker, benign lung and breast mass, recurrent pulmonary embolism, left upper extremity DVT, history of ? ulcerative colitis who is here for follow up to [...] polycythemia was likely secondary to hypoxemia state. Today we repeated her CBC which showed resolution of her polycythemia and her macrocytosis likely due to folic acid deficiency has resolved after folic acid supplement. Neuropathy can sometimes be due to vitamin deficiency. I rechecked her folic and vitamin B12 level which were both normal today. She will continue her folic acid and vitamin B supplement. Anticoagulation failure is generally rare. Usually it would occur in patient with active malignancyor acquired thrombophilia such as antiphospholipid syndrome which she does not have. Her malignancywork up has been negative so far, but I am still concerned whether we have missed any malignancy orany systemic inflammatory process. As discussed previously inflammatory bowel disease (IBD) patients are at two- to threefold higher risk of venous thromboembolism (VTE) compared with the general population. The absolute risk is highest during hospitalization for acute flares, but those who develop flares in the outpatient setting are also at substantially higher risk of VTE. Relative to periods of remission, individuals during active flares have about a ninefold increased risk of VTE (Tricia MJ, West J, Keenan TR. Venous thromboembolism during active disease and remission in inflammatory bowel disease: a cohort study. Lancet 2010;375:657-663.) I also discussed that IBD is associated with risk for developing colon cancer, ther efore I think we should follow-up on this and she should likely benefit of having her colonoscopy to address the status of her IBD and rule out colon cancer. If there is an evidence of active IBD, I would recommend to start treatment and once her underlying inflammation is under control, then we can switch her anticoagulant to oral anticoagulant. I am willing to consider switching her to apixaban. I asked her to have a colonoscopy, but this was put on hold. I have personally called Dr. Blakely (general surgery associate in [facility]) . Per Dr. Balbuena's nurse, apparently the colonoscopy was put on hold because their office did not have any information about her pulmonary embolism. I will fax my previous note and my note from today to their office and I explained to their office, that she should be safe to come off anticoagulation for her colonoscopy and the result of colonoscopy will help identify the potential cause of her PE. We also discussed about her alcohol intake and advised her not to drink alcohol. I explained to herthat pancreatitis is associated with thrombosis risk due to significant inflammation. She should also complete her PAP smear. She is probably due to have a repeat mammogram as well. In the meantime, I asked her to continue enoxaparin 80 mg SQ twice daily and I hope that we can transition her to oral anticoagulant after her GI evaluation and complete work up to rule out malignancy. Dr. Spence is also requesting her recent medical record including CT to review & make sure that her lung lesion has now grown in size. PLAN/RECOMMENDATIONS 1. Continue enoxaparin 80 mg SQ twice daily for now - Will consider switching back to oral anticoagulant after her GI evaluation is completed and also age appropriate cancer screening ( Pending PAP smear and will also need yearly mammogram) 2. Discussed tobacco & alcohol cessation 3. Recommend GI evaluation - colonoscopy to evaluate status of ulcerative colitis and rule out malignancy (personally discussed with Dr. Balbuena's office and leave my contact number there if Dr. Balubena has any question) - enoxaparin can be stopped 24 hours prior to colonoscopy and restart 12 hours after if there is nobleeding 4. Continue folic acid and vitamin B12 supplement Martina Kuhn had the opportunity to ask questions and indicated that all her questions were answered to her satisfaction. Will arrange follow-up in 2 months. She relies on public transportation to come to . Will try to coordinate with pulmonology appointment. Morenita Ingram MD documented in this encounter Plan of Treatment Not on file documented as of this encounter Results * Vitamin B12 (06/13/2020 12:37 PM EDT) Vitamin B12 348 232 - 1,245 pg/mL [facility] Blood specimen (specimen) 06/13/2020 12:37 PM EDT 06/13/2020 12:48 PM EDT Narrative Resulting Agency Comment Spec In Lab Morenita Ingram MD CHEMISTRY ORDERABLES [facility] [place] [place] [address] * Folate, serum (06/13/2020 12:37 PM EDT) Folate 16.4 4.8 - 24.2 ng/mL [facility] Blood specimen (specimen) 06/13/2020 12:37 PM EDT 06/13/2020 12:48 PM EDT Narrative Resulting Agency Comment Spec In Lab Morenita Ingram MD CHEMISTRY ORDERABLES Performing Organization Address City/[facility]/ZIP Co de Phone Number [facility] [place] [address] documented in this encounter Visit Diagnoses Diagnosis Recurrent pulmonary emboli- Primary Other pulmonary embolism and infarction Folic acid deficiency Other B-complex deficiencies Neuropathy Mononeuritis of unspecified site care home current use of anticoagulant therapy documented in this encounter Care Teams Gunite Nozzle Operator Relationship Specialty Start Date End Date Genaro Bonilla DNP PCP - General Family Medicine 11/12/18 10/03/20 documented as of this encounter
--- OUTSIDE RECORDS SUMMARY | 2023-12-08 14:52 | XMS_ITS | Encounter Summary ---
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 [facility] [place], [place] [address] THROMBOSIS FOLLOW-UP DATE OF VISIT 2021 Patient Martina Kuhn 1955 REFERRING PHYSICIAN Nancy Shrestha APRN PRIMARY CARE PHYSICIAN Nancy Shrestha APRN EMBOSSING PRESS OPERATOR APPRENTICE Cameron Spence MD GENERAL SURGEON (for colonoscopy) [...] back to enoxaparin 80 mg SQ twice daily-> switched to apixaban 5 mg PO twice daily in Dec 2020 to current date Thrombophilia testing: negative Polycythemia work up: myeloid panel - neg for myeloproliferative disorder (neg JAK2, CALR, MPL mutation). Polycythemia is likely secondary to smoking. (latest CBC in 06/13- normalization of her Hg) Resolved risk factors for VTE: recent alcohol associated pancreatitis Ongoing risk factor for VTE: tobacco use (working on tobacco cessation) Due to COVID-19 pandemic this office visit was converted to telephone visit. Patient verbally consents to this telephone visit and understands that the visit may be billed, similar to a clinic officevisit. HISTORY OF THE PRESENT ILLNESS Martina Kuhn is a 66 y.o. woman with history of benign lung [...] In Mar 2020 she was admitted to [facility] for acute pancreatitis, likely alcohol associated. There [...] admitted around end of June 2020 to [facility] for unresponsiveness. She was on fentanyl patch forher 3 compression fractures and she took cocaine with it and became lethargic/unresponsive. Her friend found her and she was brought to [facility], then transferred to [facility]. She is off fentanylpatch. She was also found to have mild heart attack during this hospitalization. Previously I recommended a colonoscopy to rule [...] that there is no concern of malignancy. INTERIM HISTORY She is scheduled for a telephone follow-up today. I have switched her anticoagulant from enoxaparinto apixaban 5 mg PO twice daily in Dec 2020 and since then she has not had any recurrent thrombosis. She denies any bleeding issues while on apixaban and she is pleased that she no longer needs to inject herself. Her co pay of apixaban is only 1 dollar/month. Her bruising associated with enoxaparininjection has resolved. She has had a follow-up with Dr. Spence and her pulmonary lesion has been stable and likely decreased in size. This area was previously biopsied which showed necrotizing granulomatous inflammation of lung. He plans to follow-up this lung lesion annually with imaging. She is wo rking on tobacco cessation and is waiting for her nicotine patch to arrive. She cut down cig smoking to 3 cig/day. She has not had any recurrent pancreatitis since last year and cut down her alcohol intake - now to 3 glasses of wine/week. She is recently seen a law enforcement instructor at [facility] for osteoporosis and recent hx of compression fractures. She has a pending lab to check vitamin D level and other lab. She asked if she should have any other lab testing. She denies any COVID-19 infection and is vaccinated (Moderna). Today is her birthday. She celebrated her birthday with other friend over the weekend. She is happythat her son is moving sofa back upholsterer to her. THROMBOSIS RISK FACTORS Risk Factor Comment Obesity [...] Laterality Date ??? BREAST BIOPSY Left 2019 [facility] B9 ??? BREAST BIOPSY Left 2019 [facility] B9 ??? CT GUIDED BIOPSY LUNG 03/07/2019 CT Guided Biopsy Lung 03/07/2019 [facility] RAD CAT SCAN ??? MAMMO US BIOPSY LEFT Left 03/30/2019 Mammo Us Biopsy Left 03/30/2019 Kenzie Cevallos MD [facility] RAD MAMMOGRAPHY MEDICATIONS Outpatient Medications Marked as Taking for the 04/09/21 encounter (TH Visit (TeleHealth)) with Morenita Ingram MD Medication Sig Dispense Refill ??? folic acid (Folvite) 1 mg Tablet TAKE 1 TABLET BY MOUTH DAILY 90 tablet 0 ??? albuteroL 90 mcg/actuation HFA Aerosol Inhaler Inhale 2 puffs into the lungs every 4 hours as needed for Wheezing. Use with spacer ??? lovastatin (MEVACOR) 20 mg Tablet Take 20 mg by mouth nightly. ??? naltrexone (Depade) 50 mg Tablet Take 50 mg by mouth daily. ??? omeprazole 20 mg Tablet, Delayed Release (E.C.) Take by mouth. BID ??? cyanocobalamin, Vitamin B-12, (Vitamin B-12) 1,000 mcg Tablet TAKE 1 TABLET BY MOUTH DAILY ??? pregabalin (LYRICA) 150 mg Capsule 150 mg 2 times daily. ??? levothyroxine (SYNTHROID) 50 mcg Tablet Take 100 mcg by mouth Daily. ??? cyclobenzaprine (FLEXERIL) 10 mg Tablet TK 1 T PO HS PRN 1 ??? ARIPiprazole (ABILIFY) 5 mg Tablet Daily ??? escitalopram (LEXAPRO) 20 mg Tablet take 1 tablet by mouth every morning 0 ADVERSE DRUG REACTIONS Allergies as of 2021 - Review Complete 2021 Allergen Reaction Noted ??? Sulfa (sulfonamide antibiotics) Other (See Comments) 11/12/2018 FAMILY HISTORY No family history of VTE Dad of [place] in his 80. SOCIAL HISTORY Lives by herself Have 2 sons. Smoker, used to smoke 1/2 PPD for 40 years,-> now 3 cig/day Alcohol use - up to 32 glasses of wine every 2 days prior to hospitalization for pancreatitis in Mar, now drinks beer 2-3 drinks/week REVIEW OF SYSTEMS Fevers/chills/sweats No Recent infections No Unexplained weight loss No Headache/lightheadedness/syncope No Sinus pain/pressure No Oral sores/lesions/bleeding No Sore throat/dysphagia No Nosebleeds No Cough/SOB/chest pain/heart racing Baseline dyspnea on exertion Nausea/vomiting/dyspepsia No Abdominal pain No Diarrhea/constipation No Urinary pain, burning, incontinence No Hematuria No Vaginal discharge/bleeding No Skin rashes/ulcers No Back/joint pain/swelling Lower back pain due to compression fractures. Leg swelling/pain/redness No Bruising/petechiae/bleeding/melena No Sensory/motor Neuropathy of hand/feet new since her pancreatitis episode - Lyrica helps Polydipsia/polyuria/heat/cold intol No Lumps/bumps/swollen glands No Other Fatigue PHYSICAL EXAMINATION Weight 165 lbs (75 kg) LABORATORY STUDIES None RADIOGRAPHIC STUDIES No new imaging today IMPRESSION Martina Kuhn is a 66 y.o. woman with history of anxiety/depression, hypothyroidism, smoker, benign lung (necrotizing granuloma) and breast mass (biopsy- benign), recurrent pulmonary embolism, left upper extremity DVT, history of ? ulcerative colitis (no evidence of IBD with recent colonoscopy 1 , alcohol induced pancreatitis (Apr 15), who is scheduled for follow-up. Her initial left UE DVT and bilateral [...] B12 deficiency has resolved after folicacid supplement. We will repeat her CBC, folic acid and vitamin B12 levels - Will send order to be drawn at [facility]. When I saw her last in Nov 2020, we switched her anticoagulant from enoxaparin to apixaban 5 mg PO twice daily after all work up was negative for malignancy. She is in better health compared to last year and she has cut down smoking and alcohol. I encourage her to continue to do so because both tobacco & alcohol use impact her thrombosis risk. She has tolerated apixaban well so far without any evidence of recurrent thrombosis and bleeding complication. I recommend her to stay on long-term apixaban 5 mg PO twice daily and will ask her PCP to take over future refill. PLAN/RECOMMENDATIONS 1. Candidate for long-term anticoagulation - Continue apixaban 5 mg PO twice daily. Will ask PCP to refill future script 2. Discussed tobacco & alcohol cessation 3. Recheck CBC, folic acid and vitamin B12 level - lab order sent to [facility] and will call with result. Martina Kuhn had the opportunity to ask questions and indicated that all her questions were answered to her satisfaction. While I won't schedule a routine follow-up, she knows that she can call our office to schedule follow-up as needed. I provided care to the patient via telephone call. Total time of care including chart review, coordination of care, telephone call and documentation: 20 minutes. Morenita Ingram MD documented in this encounter Plan of Treatment Not on file documented as of this encounter Visit Diagnoses Diagnosis Recurrent pulmonary emboli Other pulmonary embolism and infarction retirement current use of anticoagulant therapy Folic acid deficiency Other B-complex deficiencies documented in this encounter Care Teams Hand Suture Winder Relationship Specialty Start Date End Date Nancy Shrestha, STOVE MECHANIC [address] [place] [address] PCP - General Family Medicine 10/04/20 documented as of this encounter
--- OUTSIDE RECORDS SUMMARY | 2023-12-08 14:52 | XMS_ITS | Encounter Summary ---
Author Organization [facility] Address [facility] [place] [address] Care Team Providers Care Line Erector Name Role Phone Genaro Bonilla DNP Primary Care Provider [phone] Encounter Details Date Type Department Care Team (Latest Contact Info) Description 06/13/2020 11:00 AM EDT Office [place] [phone] Cameron Spence MD [facility] [place] [address] Necrotizing granulomatous inflammation of lung (Primary Dx); SANDOVAL (dyspnea on exertion); Decreased diffusion capacity; History of pulmonary embolism; Acute pancreatitis, unspecified complication status, unspecified pancreatitis type; Other specified counseling Social History Tobacco Use Types Packs/Day Years [...] ??F) 06/13/2020 10:28 AM EDT Respiratory Rate - - Oxygen Saturation 100% 06/13/2020 10:28 AM EDT Inhaled Oxygen Concentration - - Weight 75.8 kg (167 lb 1.7 oz) 06/13/2020 10:28 AM EDT Height 163.3 cm (5' 4.29) 06/13/2020 10:28 AM E DT Body Mass Index 28.43 06/13/2020 10:28 AM EDT documented in this encounter Patient Instructions * Patient Instructions* Cameron Spence MD - 06/13/2020 11:00 AM EDT I will call you when I get results of tests from today and prior test from . . Don't go to the lab until you see Dr. Ingram today, she may want other tests. Cameron Saldana documented in this encounter Progress Notes * Cameron Spence MD - 06/13/2020 11:00 AM EDT Images from the original note were not included. [facility] Section of Pulmonary and Critical Care Medicine Outpatient Consultation Date of Encounter: 06/13/2020 PCP: Genaro Bonilla APRN Reason for Evaluation: Ms. Martina Kuhn follows up with the [facility] today for this [id number] office visit for abnormal chest imaging. She was last seen 09/30/2019 in a telehealth but did not follow up as planned. I independently interviewed and examined the patient in the office and have reviewed available records. History of Present Illness: I last saw Martina September 2019 in a telehealth encounter. We did scheduled and plan multiple follow-up visits since then but she had canceled these visits for variety of reasons and not followed up with imaging is reordered. In September 2019 she did follow-up with ANCA and MARY testing which were normal. There was mild proteinuria. Unfortunately she reports that in March/April of this year she was admitted to the hospital in [facility] with acute pancreatitis and was hospitalized for over a week. She is uncertain what the etiology of her pancreatitis is. She denies gallstones. She tells me she had been drinking a boxof wine every 2 to 2- 1/2 days prior to this event alcohol could have been a cause. In reviewing the chart it also appears that she was started on naltrexone in February 2019 and this agent is also associated with acute pancreatitis. She feels that her abdominal symptoms have largely resolved. She reports having residual neuropathic pain in her hands and feet since this episode the etiology of which is not clear to me. We have nodischarge summaries or imaging from this admission in our system. She will be following up with and hematology after her visit with me today. She continues on enoxaparin in light of her pulmonary embolism. She has not had a colonoscopy to evaluate for cancer active inflammatory bowel disease. She recently completed a Pap smear but studies were nondiagnostic and it needs to be repeated. Martina tells me that her respiratory symptoms are similar to the last time we spoke. This said, she had significant decrease in her lung function testing today especially with respect to the DLCO. She continues to smoke approximately half pack of cigarettes daily. She denies fevers and chills. She does have night sweats approximately once a week but they are notdrenching. I reviewed medical, surgical family and social [...] LUNG 03/07/2019 CT Guided Biopsy Lung 03/07/2019 [facility] RAD CAT SCAN ??? MAMMO US BIOPSY LEFT Left 03/30/2019 Mammo Us Biopsy Left 03/30/2019 Kenzie Cevallos MD [facility] RAD MAMMOGRAPHY Family History: Family History Negative [...] years: 20.00 ??? Smokeless tobacco: Never Used Substance and [...] Week: ??? Minutes of Exercise per Session: Stress: ??? Feeling of Stress : Social Connections: ??? Frequency of Communication with Friends and Family: ??? Frequency of Social Gatherings with Friends and Family: ??? Attends Protestant Services: ??? Active Member of Clubs or Organizations: ??? Attends Club or Organization Meetings: ??? Marital Status: Intimate Partner Violence: ??? Fear of Current or Ex-Partner: ??? Emotionally Abused: ??? Physically Abused: ??? Sexually Abused: Current Medications at Start of Encounter: Outpatient [...] tablet by mouth once daily 0 ??? predniSONE (DELTASONE) 20 mg Tablet 40 [...] Pain ??? CIS Free Text Med - Albuterol [...] negative except per the HPI. Physical Examination: BP 105/67 Pulse 80 Temp 37.2 ??C (99 ??F) (Temporal) Ht 163.3 cm (5' 4.29) Wt 75.8 kg (167lb 1.7 oz) SpO2 100% BMI 28.43 kg/m?? Physical Exam Constitutional: She appears well-developed. She is cooperative. No distress. Face mask in place. Neck: Phonation normal. Cardiovascular: Normal rate, regular rhythm and normal heart sounds. Pulmonary/Chest: Effort normal and breath sounds normal. She has no wheezes. She has no rhonchi. She has no rales. Abdominal: Soft. There is no hepatosplenomegaly. There is no abdominal tenderness. Musculoskeletal: General: No edema. Lymphadenopathy: Head (right side): No submandibular, no posterior auricular and no occipital adenopathy present. Head (left side): No submandibular, no posterior auricular and no occipital adenopathy present. She has no cervical adenopathy. Neurological: She is alert. Skin: Skin is warm and dry. No cyanosis. Nails show no clubbing. Psychiatric: She has a normal mood and affect. Her speech is normal and behavior is normal. Labs: Due to limited available blood work from today CBC was notable for white blood cell count which wasnormal and normal differential. 100 peripheral eosinophils. Hemoglobin was normal at 13.5 which is decreased from prior. The MCV is 98 which is mildly elevated but decreased from 116 prior. Basic chemistry notable for normal renal function with normal BUN the chloride is slightly elevated at 108 normal total plasma CO2 of 24. Liver function test are normal with normal AST and ALT. The lipase is slightly elevated at 74 folate and B12 were normal. Other studies including IgG class IV and ANCA in process. 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 DIAGNOSIS A - Right lung, biopsy: ??- Pulmonary parenchyma with necrotizing granulomatous inflammation. ??- ??No malignancy is identified. ?(see Discussion.) Electronically signed by: ??MD Marisela, Alberto Zavala Verified: ??03/10/2019 ?Pathologist Performed at: ??-[facility] [place], [place], [place] DISCUSSION AFB, GMS, OMAR, and Gram [...] 1. Necrotizing granulomatous inflammation of lung 2. SANDOVAL (dyspnea on exertion) 3. Decreased diffusion capacity 4. History of pulmonary embolism 5. Acute pancreatitis, unspecified complication status, unspecified pancreatitis type I had extensive discussion with Ms. Gan again today about clinical certainty regarding the unifying diagnosis for her various health disorders. I am concerned about an underlying systemic inflammatory disorder or malignancy as is Dr. Ingram based on our communications. It is difficult to know whether her recent episode of pancreatitis is or is not related to the constellation of problems shehas had over the last several years. I remain concerned about the unexplained granulomatous inflammation in her lung. Given her decrease in lung function, repeat imaging of the chest may be helpful, but given her recent hospitalization in [facility] I suspect cross-sectional imaging may already have been performed. Baseline labs today without profound abnormalities. The lipase is somewhat elevated which is not unexpected given recent course though in the absence of symptoms intervention is not required. Will screen for IgG class IV abnormalities as this disorder is occasionally associated with granulomatous inflammation as well as pancreatitis. We will also repeat ANCA testing which occasionally become positive later in the disease course. Due to her new neuropathic symptoms is not clear to me,but vasculitis is a consideration. I will follow up with Ms. Kuhn once I have been able to obtain and review records from [facility]. We discussed the need for regular follow-up to fully resolve these issues. Patient. Facial eye which clinician not recording is - CBC (with Diff); Future - Comprehensive metabolic panel (non-fasting); Future - CRP, acute inflammation; Future - IgG 4; Future - Cytoplasmic Neutrophilic Ab; Future - Myeloperoxidase Ab; Future - Proteinase-3 Antibody; Future - Lipase; Future -Pain records from [facility] 5. Other specified counseling She has not yet been immunized for COVID-19. We discussed effectiveness of the currently available set vaccines and the generally reassuring side effect profile. While the risk is low it is probably likely best that she avoid the [employer] Ulices vaccine until thrombogenicity is more fully evaluated. Follow up telehealth visit in 3 months Cameron Spence MD, PhD N [facility] PULMONOLOGY AT [facility] [address] Dept: [phone] Loc: [phone] documented in this encounter Plan of Treatment Not on file documented as of this encounter Results * Proteinase-3 Antibody (06/13/2020 12:37 PM EDT) Proteinase 3 Antibody <2.0 <=20.0 unit(s) [facility] Blood specimen (specimen) 06/13/2020 12:37 PM EDT 06/13/2020 2:56 PM EDT Narrative Resulting Agency Comment Spec In Lab Cameron Spence MD IMMUNOLOGY ORDERABLE S Performing Organization Address City/[facility]/ZIP Co de Phone Number [facility] [place] [address] * Myeloperoxidase Ab (06/13/2020 12:37 PM EDT) Myeloperoxidase Antibody 2.0 <=20.0 unit(s) [facility] Blood specimen (specimen) 06/13/2020 12:37 PM EDT 06/13/2020 2:56 PM EDT Narrative Resulting Agency Comment Spec In Lab Cameron Spence MD IMMUNOLOGY ORDERABLE S Performing Organization Address City/[facility]/ZIP Co de Phone Number [facility] [place] [address] * Cytoplasmic Neutrophilic Ab (06/13/2020 12:37 PM EDT) C-Anca (JUNE) Negative Negative [facility] Comment: Test Performed by: [facility] [place] [address] Site Identification Specialist: Nader Brewster M.D. Ph.D.; CLIA# [id number] P-Anca (JUNE) Negative Negative [facility] Comment: Negative for cANCA and pANCA patterns by immunofluorescence. ADDITIONAL INFORMATION This test was developed and its performance characteristics determined by [facility] in a manner consistent with CLIA requirements. This test has not been cleared or approved by the U.S. Food and Drug Administration. Test Performed by: [facility] [place] [address] Site Identification Specialist: Nader Brewster M.D. Ph.D.; CLIA# [id number] Blood specimen (specimen) 06/13/2020 12:37 PM EDT 06/13/2020 2:18 PM EDT Narrative Resulting Agency Comment Spec In Lab Cameron Spence MD LAB SEND OUT ORDERAB LES Performing Organization Address [facility]/ZIP Co de Phone Number [facility] [place] [address] * (ABNORMAL) IgG 4 (06/13/2020 12:37 PM EDT) IgG 4 1.7(L) 4.0 - 86.0 mg/dL [facility] Comment: Test Performed by [email or web address], [address] [place] [address] Alex Keith M.D., Ph.D., Director of Laboratories , [facility] [id number] Blood specimen (specimen) 06/13/2020 12:37 PM EDT 06/13/2020 2:39 PM EDT Narrative Resulting Agency Comment Spec In Lab Cameron Spence MD IMMUNOLOGY ORDERABLE S Performing Organization Address [facility]/ZIP Co de Phone Number [facility] [place] [address] * (ABNORMAL) CRP, acute inflammation (06/13/2020 12:37 PM EDT) [facility] Signature C-Reactive Protein 5.5(H) <=4.9 mg/L [facility] Blood specimen (specimen) 06/13/2020 12:37 PM EDT 06/13/2020 12:49 PM EDT Narrative Resulting Agency Comment Spec In Lab Cameron Spence MD CHEMISTRY ORDERABLES Performing Organization Address City/[facility]/ZIP Co de Phone Number [facility] [place] [address] * (ABNORMAL) Lipase (06/13/2020 12:37 PM EDT) Lipase 74(H) 0 - 60 unit/L [facility] Blood specimen (specimen) 06/13/2020 12:37 PM EDT 06/13/2020 12:49 PM EDT Narrative Resulting Agency Comment Spec In Lab Cameron Spence MD CHEMISTRY ORDERABLES [facility] [place] [address] * (ABNORMAL) Comprehensive metabolic panel (non-fasting) (06/13/2020 12:37 PM EDT) Glucose 94 65 - 199 mg/dL [facility] Comment:Diabetes: >=200 mg/d L plus symptoms Blood Urea Nitrogen 9 8 - 18 mg/dL [facility] Creatinine 0.67(L) 0.70 - 1.20 mg/dL [facility] Sodium 141 135 - 145 mmol/L [facility] Potassium 3.6 3.5 - 5.0 mmol/L [facility] Comment: Please note: ??Patients with WBC >100,000 may have falsely elevated Potassium levels. ??For accurate Potassium quantification in these patients send serum separator tube (gold top) for subsequent determinations. ??Contact the Clinical Chemistry Laboratory if there are any questions. Chloride 108(H) 98 - 107 mmol/L [facility] Carbon Dioxide 24 22 - 31 mmol/L [facility] Anion Gap 9 5 - 15 mmol/L [facility] Calcium 9.7 8.5 - 10.5 mg/dL [facility] Protein, Total 6.6 6.1 - 8.0 gm/dL [facility] Albumin 4.2 3.2 - 5.2 gm/dL [facility] Aspartate Aminotransferase 15 0 - 30 unit/L [facility] Alanine Aminotransferase 12 0 - 30 unit/L [facility] Alkaline Phosphatase 69 35 - 105 unit/L [facility] Bilirubin, Total 0.3 0.2 - 1.3 mg/dL [facility] Est Glomerular Filtration Rate 94 >=60 mL/min/1. 73 m?? [facility] Comment: This patient? s estimated glomerular [...] In Lab Cameron Spence MD CHEMISTRY ORDERABLES [facility] [place] [address] documented in this encounter Visit Diagnoses Diagnosis Necrotizing granulomatous inflammation of lung- Primary SANDOVAL (dyspnea on exertion) Other dyspnea and respiratory abnormality Decreased diffusion capacity Nonspecific abnormal results of pulmonary system function study History of pulmonary embolism Personal history of pulmonary embolism Acute pancreatitis, unspecified complication status, unspecified pancreatitis type Other specified counseling documented in this encounter Care Teams Line Erector Relationship Specialty Start Date End Date Genaro Bonilla DNP PCP - General Family Medicine 11/12/18 10/03/20 documented as of this encounter
--- OUTSIDE RECORDS SUMMARY | 2023-12-08 14:53 | XMS_ITS | Encounter Summary ---
Author Organization [facility] Address [facility] [place] [address] Care Team Providers Care Grain Elevator Man Name Role Phone Genaro Bonilla DNP Primary Care Provider Encounter Details Date Type Department Care Team (Latest Contact Info) Description 03/30/2019 9:00 AM EST - 03/30/2019 9:09 AM EST Hospital En[place] [address] Yissel Rahman MD [facility] [place] [address] Breast lump in female Discharge Disposition: Home Social History Tobacco Use [...] tablet by mouth every morning 0 08/23/2018 VITAMIN B-1 100 mg Tablet take 1 tablet by mouth once daily 0 09/08/2018 11/08/2019 pregabalin (LYRICA) 25 mg Capsule 02/11/2019 11/08/2019 omeprazole (PRILOSEC) 40 mg Capsule, Delayed Release(E.C.) Daily 10/09/2018 11/08/2019 naltrexone (DEPADE) 50 mg Tablet Take 50 mg by mouth Daily. 11/08/2019 DAILY-KITTY Tablet take 1 tablet by mouth once daily 0 09/08/2018 06/13/2020 magnesium oxide (MAG-OX) 400 mg (241.3 mg magnesium) Tablet take 1 tablet by mouth twice a day 0 09/08/2018 11/08/2019 buPROPion XL (WELLBUTRIN XL) 300 mg Tablet Extended Release 24 hr Take 300 mg by mouth Daily. 11/08/2019 amitriptyline (ELAVIL) 10 mg Tablet Take 10 mg by mouth Three times a day. 11/08/2019 ALPRAZolam (XANAX) 0.5 mg Tablet Take 0.5 mg by mouth Three times a day. 11/08/2019 THIAMINE MONONITRATE, VIT B1, ORAL Daily 09/08/2018 11/08/2019 umeclidinium-vilanterol 62.5-25 mcg/actuation Disk with Device Inhale 1 puff into the lungs daily. 60 each 3 02/17/2019 11/08/2019 predniSONE (DELTASONE) 20 mg Tablet 40 mg by mouth daily x 7 days, then 30 mg by mouth daily x 7 days, then 20 mg by mouth x 7 days, then 10 mg by mouth x 7 days, then stop 36 tablet 11/23/2018 06/13/2020 HYDROcodone-acetaminoph en 10-300 mg/15 mL Solution 1 tablet. 10/09/2018 06/13/2020 multivit with minerals/lutein (MULTIVITAMIN 50 PLUS ORAL) 1 tablet. 09/08/2018 11/08/2019 enoxaparin (LOVENOX) 40 mg/0.4 mL Syringe Q12H 10/09/2018 12/04/2019 ibuprofen (ADVIL;MOTRIN) 600 mg Tablet Every 6 hours, as needed PRN For Pain 10/07/2018 06/13/2020 CIS Free Text Med - Librium Taper/Titrate, POTaper/Titrate, PO. Take 2 (TWO)Capsule(s) (50 MG = 2 Capsule(s)) Three times daily for 2 Days.Take 2 (TWO)Capsule(s) (50 MG = 2 Capsule(s)) Twice daily for 2 Days.Take 1 (ONE)Capsule(s) (25 MG = 1 Capsule(s)) Three times daily for 2 Days.Take 1 (ONE)Capsule(s) (25 MG = 1 Capsule(s)) Twice daily for 2 Days. 09/09/2006 11/08/2019 CIS Free Text Med - Albuterol 90 [...] Procedure Name Priority Date/Time Associated Diagnosis Comments MAMMO DIAGNOSTIC CAD AND STEVE LEFT Routine 03/30/2019 9:20 AM EST Breast lump in female documented in this encounter Results * (ABNORMAL) Mammo Diagnostic Cad and Steve Left (03/30/2019 9:20 AM EST) Anatomical Region Laterality Modality Breast Left Mammography Impressions 03/30/2019 10:32 AM EST Interval progression from 0.7 cm to 1.2 cm of a highly suspicious spiculated mass at the 10:00 radian sonographically 5 cm from the nipple. The biopsy result and core clip locations suggest sampling failure. Recommend ultrasound-guided core biopsy, performed and dictated separately on the day of the patient's visit. BI-RADS Category 5: Highly Suggestive of Malignancy - Appropriate Action Should Be Taken Thank you for letting us participate in the care of this patient. For questions regarding this report, please contact the number below. ? Narrative 03/30/2019 10:32 AM EST EXAMINATION: MAMMO DIAGNOSTIC CAD AND STEVE LEFT, US ??BREAST LIMITED LEFT CLINICAL HISTORY: Unexpected findings on CT scan TECHNIQUE: CC and MLO views were obtained of the left breast. 2-D direct digital capture, 3-D tomosynthesis and computer aided detection (CAD) were used.. I performed high-resolution ultrasound following the technologist. COMPARISON: This study was compared with prior images. FINDINGS: There are scattered areas of fibroglandular density. There is a 1.2 cm spiculated mass in the left upper slightly inner quadrant 6 cm from the nipple. There is a ribbon-shaped clip in the left upper outer quadrant anterior third 2.5 cm from the nipple and there is a cylinder shaped core biopsy clip mammographically 1 cm medial to the spiculated mass. There is no evidence of axillary adenopathy. High-resolution ultrasound confirms the irregular heterogeneously hypoechoic mass with posterior shadowing at the left breast 10:00 radian sonographically 5 cm from the nipple measuring 1.1 cm. This is 2 cm sonographically medial to a hydro-Spencer core biopsy clip. Resulting Agency Comment Unexpected Finding Yissel Rahman MD IMG MAMMO ORDERABLE S documented in this encounter Visit Diagnoses Diagnosis Breast lump in female Lump or mass in breast documented in this encounter Care Teams Grain Elevator Man Relationship Specialty Start Date End Date Genaro Bonilla DNP PCP - General Family Medicine 11/12/18 10/03/20 documented as of this encounter
--- OUTSIDE RECORDS SUMMARY | 2023-12-08 14:53 | XMS_ITS | Encounter Summary ---
[place] [address] Care Team Providers Care Registration Coordinator Name Role Phone Genaro Bonilla DNP Primary Care Provider [phone] Encounter Details Date Type Department Care Team (Late st Contact Info) Description 01/14/2019 Telephone [place] [phone] Brittnee Norton Social History Tobacco Use Types Packs/Day Years Used Date Smoking Tobacco: Former Cigarettes 0.5 40 Smokeless Tobacco: Never Sex and Gender Information Value Date Recorded Sex Assigned at Not on file Gender Identity Not on file Sexual Orientation Not on file documented as of this encounter Plan of Treatment Not on file documented as of this encounter Visit Diagnoses Not on filedocumented in this encounter Care Teams Registration Coordinator Relationship Specialty Start Date End Date Genaro Bonilla DNP PCP - General Family Medicine 11/12/18 10/03/20 documented as of this encounter
--- OUTSIDE RECORDS SUMMARY | 2023-12-08 14:53 | XMS_ITS | Encounter Summary ---
Author Organization [facility] Address [facility] [place] [address] Care Team Providers Care Lock Expert Name Role Phone Genaro Bonilla MARTIN Primary Care Provider Encounter Details Date Type Department Care Team (Latest Contact Info) Description 03/30/2019 9:51 AM EST Hospital [place] [phone] Kenzie Cevallos MD [facility] [place] [address] Abnormal finding on breast imaging Discharge Disposition: Home Social History Tobacco Use [...] Name Priority Date/Time Associated Diagnosis Comments MAMMO US BIOPSY LEFT Routine 03/30/2019 10:12 AM EST Abnormal finding on breast imaging SPECIMEN TO PATHOLOGY Routine 03/30/2019 10:08 AM EST SURGICAL PATHOLOGY REPORT Routine 03/30/2019 10:06 AM EST documented in this encounter Results * Mammo Us Biopsy Left (03/30/2019 10:12 AM EST) Anatomical Region Laterality Modality Breast Left Mammography Impressions 04/01/2019 3:46 PM EST Concordant filling usual benign result RECOMMENDATION: Annual mammographic screening. I discussed these results and recommendations with the patient on 04/01/2019. REVIEW PATH CONFERENCE?: Yes, second case of progression of spiculated mass status post core biopsy. Thank you for letting us participate in the care of this patient. For questions regarding this report, please contact the number below. ? Electronically signed by: Kenzie Cevallos [facility] ([phone]), at 04/01/2019 3:46 PM Narrative 04/01/2019 3:46 PM EST LEFT BREAST ULTRASOUND GUIDED AUTOMATED CORE BIOPSY CLINICAL HISTORY: abnormal finding. 1.2 cm spiculated mass left breast 10:00 radian 5 cm from the nipple. PROCEDURAL DETAILS: Informed consent was obtained and a timeout procedure was performed per protocol. Using local anesthetic (less than 5 cc of 1% lidocaine), sterile technique, and ultrasound guidance the lesion in the left breast was localized and sampled. Multiple satisfactory core biopsy specimens were obtained using a 14-gauge automated device. A BalconyTV 14G marker clip was placed. The clip was in satisfactory position both sonographically and at follow-up cranio-caudal and true lateral digital mammography. COMPLICATIONS: None. PROCEDURAL ATTESTATION: Resident: None I performed the procedure without a resident. IMAGING DIFFERENTIAL DIAGNOSIS: Invasive carcinoma PATHOLOGIC DIAGNOSIS: Benign breast tissue with scar, chronic lymph nodes histiocytic inflammation Kenzie Cevallos MD IMG MAMMO ORDERABL ES * Specimen to Pathology (03/30/2019 10:08 AM EST) AP Specimen 03/30/2019 10:0 8 AM EST 03/30/2019 10:08 AM EST Narrative [facility] - 03/30/2019 10:08 AM EST Specimen requisition ordered. ??Separate Pathology report to follow Kenzie Cevallos MD PATHOLOGY/CYTOLOGY ORDERABLES [facility] [place] [address] * Surgical Pathology Report (03/30/2019 10:06 AM EST) Final Diagnosis [id number] ? Location: 3L The signing pathologist has (i) examined the relevant preparation(s) for the specimen(s) and (ii) rendered or confirmed the diagnosis(es). . ?Surgical Pathology DIAGNOSIS Needle biopsies: ?Left breast Diagnosis: ?Benign breast tissue with scar, chronic lymphohistiocytic inflammation, hemosiderin deposition, and fat necrosis (see Discussion) Microcalcifications: ??N/A Electronically signed by: ??Tiffani Okeefe DO Verified: ??04/01/2019 ?Pathologist Performed at: ??-[facility] [place], [place], [place] DISCUSSION The findings are likely related to the recent biopsy. Clinical and radiologic correlation is recommended. ADDITIONAL STUDIES Immunohistochemistry Studies: Formalin-fixed, paraffin-embedded tissue sections are studied using the polymer technique with appropriate positive and negative controls. ?These IHC studies provide the pathologist with adjunctive diagnostic information. Antibody specificity has been verified by testing antibodies on a series of in-house tissues with known immunohistochemical performance characteristics. The clinical interpretation of any antibody positive staining or its absence is evaluated within the context of clinical presentation, morphology, histopathological criteria and other diagnostic tests. Block ? Antibody ?Result (Positive/Negative) A2 ? CKAE1/3 ?Negative A2 ? CK5 ?Negative A2 ? p63 ?Negative A2 ? B-catenin ?Nonspecific cytoplasmic staining A Congo Red stain is negative for amyloid. CLINICAL INFORMATION Specimen Submitted: A - Left breast US guided bx 14g Clinical History and Diagnosis: Mass 1. IDC 2. ILC SPECIMEN PROCESSING A - Labeled/Fixative: Left breast US guided BX, formalin. Quantity/Size: Four Ranging from 0.4 x 0.1 cm to 1.5 x 0.1 cm. Tissue Description: Yellow-white fibrofatty needle core biopsies. Sections/Processing: Entirely submitted in 2 cassettes labeled A1-A2. Ischemic Time: 2 minutes ??sns 04/01/2019 2:43 PM EST [facility] BREAST STRUCTURE / Unknown 03/30/2019 10:06 AM EST 03/30/2019 10:06 AM EST Kenzie Cevallos MD PATHOLOGY/CYTOLOGY ORDERABLES [facility] [place] [address] documented in this encounter Visit Diagnoses Diagnosis Abnormal finding on breast imaging Other (abnormal) findings on radiological examination of breast documented in this encounter Administered Medications Inactive Administered Medications - up to 3 most recent administrations Medication Order MAR Action Action Date Dose Rate Site lidocaine (XYLOCAINE) 10 mg/mL (1 %) injection 10 mg 10 mg, Intradermal, ONCE, 1 dose, On Thu03/30/19 at 1030, Routine Given 03/30/2019 10:03 AM EST 10 mg documented in this encounter Care Teams Lock Expert Relationship Specialty Start Date End Date Genaro Bonilla DNP PCP - General Family Medicine 11/12/18 10/03/20 documented as of this encounter
--- OUTSIDE RECORDS SUMMARY | 2023-12-08 14:53 | XMS_ITS | Encounter Summary ---
Author Organization [facility] Address [facility] [place] [address] Care Team Providers Care Cell Preparer Name Role Phone Genaro Bonilla DNP Primary Care Provider Encounter Details Date Type Department Care Team (Latest Contact Info) Description 03/30/2019 9:52 AM EST - 03/30/2019 11:59 PM EST Hospital [place] [address] Kenzie Cevallos MD [facility] [place] [address] Abnormal finding on breast imaging Discharge Disposition: [...] Priority Date/Time Associated Diagnosis Comments MAMMO DIAGNOSTIC WITHOUT CAD LEFT Routine 03/30/2019 10:17 AM EST Abnormal finding on breast imaging documented in this encounter Results * Mammo Diagnostic Without Cad Left (03/30/2019 10:17 AM EST) Anatomical Region Laterality Modality Breast [...] please contact the number below. ? Narrative 04/01/2019 3:46 PM EST LEFT BREAST [...] obtained using a 14-gauge automated device. A travelfox 14G marker clip was placed. The clip was in satisfactory position both sonographically and at follow-up cranio-caudal and true lateral digital mammography. COMPLICATIONS: None. PROCEDURAL ATTESTATION: Resident: None I performed the procedure without a resident. IMAGING DIFFERENTIAL DIAGNOSIS: Invasive carcinoma PATHOLOGIC DIAGNOSIS: Benign breast tissue with scar, chronic lymph nodes histiocytic inflammation Kenzie Cevallos MD IMG MAMMO ORDERABL ES documented in this encounter Visit Diagnoses Diagnosis Abnormal finding on breast imaging Other (abnormal) findings on radiological examination of breast documented in this encounter Care Teams Cell Preparer Relationship Specialty Start Date End Date Genaro Bonilla DNP PCP - General Family Medicine 11/12/18 10/03/20 documented as of this encounter
--- OUTSIDE RECORDS SUMMARY | 2023-12-08 14:53 | XMS_ITS | Encounter Summary ---
Author Organization [facility] Address [facility] [place] [address] Care Team Providers Care Twisting Department End Finder Name Role Phone Genaro Bonilla DNP Primary Care Provider Encounter Details Date Type Department Care Team (Late st Contact Info) Description 02/17/2019 [place] [address] Owen Sparks MD [facility] [place] [address] Social History Tobacco Use Types Packs/Day Years Used Date Smoking Tobacco: Former Cigarettes 0.5 40 0 10/18/1978 - 10/18/2018 Smokeless Tobacco: Never Sex and Gender Information Value Date Recorded Sex Assigned at Not on file Gender Identity Not on file Sexual Orientation Not on file documented as of this encounter H&P Notes * Owen Sparks MD - 02/17/2019 1:43 PM EST Images from the original note were not included. INTERVENTIONAL RADIOLOGY FOCUSED H&P and PRE-PROCEDURE NOTE: PCP: Genaro Bonilla APRN Referring Provider: Deo Pool V Planned Procedure: Planned procedure: image guided Right lung biopsy Procedure Indication: RLL mass Presenting Diagnosis/ Complaint: Martina Kuhn is a 63 y.o. female with RLL mass/consolidation initially found on August 2018 CXR when presenting with productive cough. Patient also developed PE inAugust. SHe has a 40 [address] year [address]. PET CT in [place] showed nonspecific peripherally avid lesion in the RLL and breast lesion. Repeat CT 02/17 showed persistent RLL mass/consolidation unchanged c/wSept PET/CT. 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 umeclidinium-vilanterol 62.5-25 mcg/actuation Disk with Device [...] (Patient not taking: No sig reported) No current facility-administered medications on file prior to visit. Allergies: Sulfa (sulfonamide antibiotics) Social History and Habits: Social History Socioeconomic History ??? Marital status: Spouse name: Not on file ??? Number of children: Not on file ??? Years of education: Not on file ??? Highest education level: Not on file Occupational History ??? Not on file Social Needs ??? Financial resource strain: Not on file ??? Food insecurity: Worry: Not on file Inability: Not on file ??? Transportation needs: Medical: Not on file Non-medical: Not on file Tobacco Use ??? Smoking status: Former Smoker Packs/day: 0.50 Years: 40.00 Pack years: 20.00 Last attempt to quit: 10/18/2018 Years since quittin.3 ??? Smokeless tobacco: Never Used Substance and Sexual Activity ??? Alcohol use: Not on file ??? Drug use: Not on file ??? Sexual activity: Not on file Lifestyle ??? Physical activity: Days per week: Not on file Minutes per session: Not on file ??? Stress: Not on file Relationships ??? Social connections: Talks on phone: Not on file Gets together: Not on file Attends advent service: Not on file Active member of club or organization: Not on file Attends meetings of clubs or organizations: Not on file Relationship status: Not on file ??? Intimate partner violence: Fear of current or ex partner: Not on file Emotionally abused: Not on file Physically abused: Not on file Forced sexual activity: Not on file Other Topics Concern ??? Not on file Social History Narrative ??? Not on file Significant Family History: No family history on file. Pertinent ROS: as per HPI Labs: Lab Results Component Value Date WBC 5.0 11/12/2018 HCT 51.6 (H) 11/12/2018 PLATELET 325 11/12/2018 BUN 8 11/12/2018 CREATININE 0.71 11/12/2018 ALKPHOS 77 11/12/2018 AST 26 11/12/2018 ALBUMIN 4.3 11/12/2018 BILITOT 0.4 11/12/2018 ALT 22 11/12/2018 PROT 7.4 11/12/2018 Imaging: Physical Exam: Pending (to be performed in angio the day of procedure) ASA: Pending (to be assessed in angio the day of procedure) Mallampati Class: Pending (to be assessed in angio the day of procedure) Assessment: 63 y.o. female with RLL lung mass/consolidation. PLan to HOLD lovenox prior evening and am day of procedure Plan: Plan Planned procedure: image guided Right lung biopsy Labs to be performed day of procedure: PLT, Coags Sedation: moderate (conscious sedation) Prophylactic antibiotic : None Contrast: No contrast Additional medications for procedure: Lidocaine Planned access site: right posterior chest Position: Prone, Left Decub Consent: Pending 02/17/2019 documented in this encounter Plan of Treatment Not on file documented as of this encounter Visit Diagnoses Not on filedocumented in this encounter Care Teams Twisting Department End Finder Relationship Specialty Start Date End Date Genaro Bonilla DNP PCP - General Family Medicine 11/12/18 10/03/20 documented as of this encounter
--- OUTSIDE RECORDS SUMMARY | 2023-12-08 14:53 | XMS_ITS | Encounter Summary ---
Author Organization [facility] Address [facility] [place] [address] Care Team Providers Care Analyst Microbiology Lab Name Role Phone Genaro Bonilla DNP Primary Care Provider Encounter Details Date Type Department Care Team (Late st Contact Info) Description 12/15/2018 Ancillary Procedure Radiology Library at [facility] [place] [place] [address] Genaro Bonilla DNP [address] [place] [address] [id number] Social History Tobacco Use Types Packs/Day Years [...] Name Priority Date/Time Associated Diagnosis Comments FILM LIBRARY-STORAGE ONLY US BREAST Routine 12/15/2018 12:00 AM EDT documented in this encounter Results * Film Library Storage Only US Breast (12/15/2018 12:00 AM EDT) Narrative [facility] - 12/16/2018 12:40 PM EDT This exam is auto-finalizing. It's purpose is for storage only. Genaro Bonilla DNP IMG FILM LIBRARY OR DERABLES [facility] [place] documented in this encounter Visit Diagnoses Not on filedocumented in this encounter Care Teams Analyst Microbiology Lab Relationship Specialty Start Date End Date Genaro Bonilla DNP PCP - General Family Medicine 11/12/18 10/03/20 documented as of this encounter
--- OUTSIDE RECORDS SUMMARY | 2023-12-08 14:53 | XMS_ITS | Encounter Summary ---
Author Organization [facility] Address [facility] [place] [address] Care Team Providers Care Fish Frog Or Oyster Farmer Name Role Phone Genaro Bonilla DNP Primary Care Provider Encounter Details Date Type Department Care Team (Late st Contact Info) Description 12/15/2018 12:05 AM EDT Ancillary Procedure Radiology Library at [facility] [place] [address] Genaro Bonilal DNP [address] [place] [address] [id number] Social History Tobacco Use Types Packs/Day Years [...] Associated Diagnosis Comments FILM LIBRARY STORAGE ONLY MAMMO Routine 12/15/2018 12:05 AM EDT documented in this encounter Results * Film Library- Storage Only Mammo (12/15/2018 12:05 AM EDT) Narrative [facility] - 12/16/2018 12:41 PM EDT This exam is auto-finalizing. It's purpose is for storage only. Genaro Bonilla DNP IMG FILM LIBRARY OR DERABLES [facility] [place] documented in this encounter Visit Diagnoses Not on filedocumented in this encounter Care Teams Fish Frog Or Oyster Farmer Relationship Specialty Start Date End Date Genaro Bonilla DNP PCP - General Family Medicine 11/12/18 10/03/20 documented as of this encounter
--- OUTSIDE RECORDS SUMMARY | 2023-12-08 14:53 | XMS_ITS | Encounter Summary ---
[place] [address] Care Team Providers Care Tyre Builder Name Role Phone Genaro Bonilla DNP Primary Care Provider [phone] Encounter Details Date Type Department Care Team (Late st Contact Info) Description 04/01/2019 [place] [phone] Lisa Tristan Social History Tobacco Use Types Packs/Day Years Used Date Smoking Tobacco: Former Cigarettes 0.5 40 0 10/18/1978 - 10/18/2018 Smokeless Tobacco: Never Sex and Gender Information Value Date Recorded Sex Assigned at Not on file Gender Identity Not on file Sexual Orientation Not on file documented as of this encounter Miscellaneous Notes * Telephone Encounter - Lisa Tristan - 04/01/2019 4:52 PM EST Spoke with kaycee was able to reschedule her 04/22 appointment also let her know that it would be with dr kaiser documented in this encounter Plan of Treatment Not on file documented as of this encounter Visit Diagnoses Not on filedocumented in this encounter Care Teams Tyre Builder Relationship Specialty Start Date End Date Genaro Bonilla DNP PCP - General Family Medicine 11/12/18 10/03/20 documented as of this encounter
--- OUTSIDE RECORDS SUMMARY | 2023-12-08 14:53 | XMS_ITS | Encounter Summary ---
Author Organization [facility] Address [facility] [place] [address] Care Team Providers Care Building Mechanic Name Role Phone Genaro Bonilla DNP Primary Care Provider Encounter Details Date Type Department Care Team (Late st Contact Info) Description 06/22/2019 [place] [phone] Keira Menard LNA Social History Tobacco Use Types Packs/Day Years Used Date Smoking Tobacco: Former Cigarettes 0.5 40 0 10/18/1978 - 10/18/2018 Smokeless Tobacco: Never Sex and Gender Information Value Date Recorded Sex Assigned at Not on file Gender Identity Not on file Sexual Orientation Not on file documented as of this encounter Miscellaneous Notes * Telephone Encounter - Keira Menard LNA - 06/22/2019 8:55 AM EDT Spoke with pt re appt on 06/[address] Stratton. Let her know Dr. Stratton is no longer with the practice and we aren't seeing pts in clinic right now. Offered to schedule pt with a new provider for telehealth. Pt states she is feeling well and if she needs to be seen she will call us. documented in this encounter Plan of Treatment Not on file documented as of this encounter Visit Diagnoses Not on filedocumented in this encounter Care Teams Building Mechanic Relationship Specialty Start Date End Date Genaro Bonilla DNP PCP - General Family Medicine 11/12/18 10/03/20 documented as of this encounter
--- OUTSIDE RECORDS SUMMARY | 2023-12-08 14:53 | XMS_ITS | Encounter Summary ---
Author Organization [facility] [place] [address] Care Team Providers Care Type Inspector Name Role Phone Genaro Bonilla DNP Primary Care Provider Encounter Details Date Type Department Care Team (Latest Contact Info) Description 03/07/2019 8:00 AM EST Laboratory Appointment Lab [address] [place] [phone] Pre-op testing; Lung mass Social History Tobacco Use Types Packs/Day Years [...] Name Priority Date/Time Associated Diagnosis Comments HC PROTHROMBIN TIME STAT 03/07/2019 8 :01 AM EST Pre-op testing Lung mass HC PLATELET COUNT STAT 03/07/2019 8:0 1 AM EST Pre-op testing Lung mass documented in this encounter Results * (ABNORMAL) Platelet count (03/07/2019 8:01 AM EST) Platelet 394(H) 145 - 357 x10(3)/mc L [facility] Immature Plt % 1.1 0.0 - 7.4 % [facility] Comment: Limitation of the Immature Platelet Fraction (IPF)-May be less reliable when the platelet count is less than 81t724/uL due to statistical imprecision. The IPF value [...] in a decreased state of production. References: [employer] The Clinical Value of the Immature Platelet Fraction (IPF) in Cell Recovery Document Number 10-1143 07/2010 [employer] The Role of the Immature Platelet Fraction (IPF) in the Differential Diagnosis of Thrombocytopenia, Document MKT-[id number] V007/04/13 Blood specimen (specimen) 03/07/2019 8:01 AM EST 03/07/2019 8:04 AM EST Narrative Resulting Agency Comment Spec In Lab Deo Rebolledo MD HEMATOLOGY ORDERA BLES [facility] [place] [address] * Prothrombin Time (03/07/2019 8:01 AM EST) Prothrombin Time 11.0 9.4 - 12.5 sec [facility] International Normalization Ratio 1.0 [facility] Comment: An INR <2.0 [...] depending on clinical circumstances. Blood specimen (specimen) 03/07/2019 8:01 AM EST 03/07/2019 8:04 AM EST Narrative Resulting Agency Comment Spec In Lab Deo Rebolledo MD HEMATOLOGY ORDERA BLES [facility] [place] [address] documented in this encounter Visit Diagnoses Diagnosis Pre-op testing Preoperative examination, unspecified Lung mass Swelling, mass, or lump in chest documented in this encounter Care Teams Type Inspector Relationship Specialty Start Date End Date Genaro Bonilla DNP PCP - General Family Medicine 11/12/18 10/03/20 documented as of this encounter
--- OUTSIDE RECORDS SUMMARY | 2023-12-08 14:53 | XMS_ITS | Encounter Summary ---
Author Organization [facility] Address [facility] [place] [place] [address] Care Team Providers Care Muleser Name Role Phone Genaro Bonilla DNP Primary Care Provider Encounter Details Date Type Department Care Team (Latest Contact Info) Description 11/19/2018 10:57 AM EDT - 11/19/2018 12:10 PM EDT Hospital [place] [phone] Lung mass Discharge Disposition: Home Social History Tobacco Use Types Packs/Day Years Used Date Smoking Tobacco: Former Cigarettes 0.5 40 Smokeless Tobacco: Never Sex and Gender Information Value Date Recorded Sex Assigned at Not on file Gender Identity Not on file Sexual Orientation Not on file documented as of this encounter Medications at Time of Discharge Medication Sig Dispensed Refills Start Date End Date ARIPiprazole (ABILIFY) 5 mg Tablet Daily 06/23/2018 escitalopram (LEXAPRO) 20 mg Tablet take 1 tablet by mouth every morning 0 08/23/2018 VITAMIN B-1 100 mg Tablet take 1 tablet by mouth once daily 0 09/08/2018 11/08/2019 omeprazole (PRILOSEC) 40 mg Capsule, Delayed Release(E.C.) Daily 10/09/2018 11/08/2019 DAILY-KITTY Tablet take 1 tablet by mouth once daily 0 09/08/2018 06/13/2020 magnesium oxide (MAG-OX) 400 mg (241.3 mg magnesium) Tablet take 1 tablet by mouth twice a day 0 09/08/2018 11/08/2019 THIAMINE MONONITRATE, VIT B1, ORAL Daily 09/08/2018 11/08/2019 HYDROcodone-acetaminophe n 10-300 mg/15 mL Solution 1 tablet. 10/09/2018 [...] 09/09/2006 06/13/2020 documented as of this encounter Procedure Notes * Mahin Mills Jr., MD - 11/19/2018 4:00 PM EDTAssociated Order(s): PULMONARY FUNCTION TEST Pulmonary Function Testing Spirometry is normal. Diffusing capacity (corrected for hemoglobin) is normal. Oxygen saturation isnormal. Mahin Mills MD Pulmonary Medicine documented in this encounter Plan of Treatment Not on file documented as of this encounter Procedures Procedure Name Priority Date/Time Associated Diagnosis Comments COMMON PULMONARY FUNCTION TEST Routine 11/19/2018 4:00 PM EDT Lung mass documented in this encounter Results * Pulmonary Function Testing (11/19/2018 4:00 PM EDT) Narrative Mahin Mills Jr., MD - 11/19/2018 4:00 PM EDT Mahin Mills Jr., MD ? 11/19/2018 ??4:00 PM Pulmonary Function Testing Spirometry is normal. Diffusing capacity (corrected for hemoglobin) is normal. Oxygen saturation is normal. Mahin Mills MD Pulmonary Medicine Deo Rebolledo MD PFT ORDERABLES documented in this encounter Visit Diagnoses Diagnosis Lung mass Swelling, mass, or lump in chest documented in this encounter Care Teams Muleser Relationship Specialty Start Date End Date Genaro Bonilla DNP PCP - General Family Medicine 11/12/18 10/03/20 documented as of this encounter
--- OUTSIDE RECORDS SUMMARY | 2023-12-08 14:53 | XMS_ITS | Encounter Summary ---
Author Organization [facility] [place] [address] Care Team Providers Care Waiter/Waitress Tourist Class Name Role Phone Genaro Bonilla Henrysam DNP Primary Care Provider [phone]- [phone] Reason for Visit * Reason Onset Date Comments Other 11/29/2018 issue with dispe nsing prednisone rx Encounter Details Date Type Department Care Team (Late st Contact Info) Description 11/29/2018 Telephone [place] [phone] Lorraine Pope, RN Other (issue with dispensing prednisone rx) Social History Tobacco Use Types Packs/Day Years Used Date Smoking Tobacco: Former Cigarettes 0.5 40 Smokeless Tobacco: Never Sex and Gender Information Value Date Recorded Sex Assigned at Not on file Gender Identity Not on file Sexual Orientation Not on file documented as of this encounter Miscellaneous Notes * Telephone Encounter - Lorraine Pope RN - 11/29/2018 10:04 AM EDT Martina left voicemail on pulmonary member of congress line stating that she was unable to knot picker cloth her rx for prednisone this weekend because the [facility] said that the rx was filled in [place] so the pulm clinic needed to call to cancel the rx in [place]. Called the [facility] to investigate and they stated they had no way of seeing where the otherrx was sent but that when they tried to submit a claim for it they got the message that it was being filled too soon. When asked why it couldn't be [facility] so that the patient didn't have a delay in care the pharmacy staff stated they had no way of knowing where ithad been filled. Called the [facility] in [place] to cancel the original prednisone rx. The pharmacy staff in [place] were very apologetic regarding the staff in [facility], and they report that all the [facility] office had to do was to hit a button to transfer the prescription to their location. They agreed to cancel the rx now. Called Martina back and relayed the message from [place] and [facility]. Encouraged her to call backif she had any more difficulty obtaining this rx. Martina then mentioned that she is having a mamogram today, which was ordered by her PMD but Dr. Pool had wanted her to have. She asked if the results should be sent to Dr. Pool, instructed her to ask when she checks in to her mammogram today in [facility] that she ask them to route the results to Dr. Pool as well as to her PMD. Martina denies further questions at this time. Lorraine Pope RN, BSN Pulmonary Department [email or web address] Phone: [phone] Pager: [phone] documented in this encounter Plan of Treatment Not on file documented as of this encounter Visit Diagnoses Not on filedocumented in this encounter Care Teams Waiter/Waitress Tourist Class Relationship Specialty Start Date End Date Genaro Bonilla DNP PCP - General Family Medicine 11/12/18 10/03/20 documented as of this encounter
--- OUTSIDE RECORDS SUMMARY | 2023-12-08 14:53 | XMS_ITS | Encounter Summary ---
Author Organization [facility] Address [facility] [place] [address] Care Team Providers Care Adoption Manager Name Role Phone Genaro Bonilla DNP Primary Care Provider Encounter Details Date Type Department Care Team (Late st Contact Info) Description 08/12/2019 3:20 PM EDT Ancillary Procedure Radiology Library at [facility] [place] [phone] Genaro Bonilla DNP [address] [place] [id number] Social History Tobacco Use Types Packs/Day Years [...] FILM LIBRARY STORAGE ONLY CT CHEST Routine 08/12/2019 3:17 PM EDT documented in this encounter Results * Film Library- Storage Only CT Chest (08/12/2019 3:17 PM EDT) Narrative CHARISSA - 08/12/2019 3:17 PM EDT This exam is auto-finalizing. It's purpose is for storage only. Genaro Bonilla DNP IM FILM LIBRARY OR DERABLES [place] documented in this encounter Visit Diagnoses Not on filedocumented in this encounter Care Teams Adoption Manager Relationship Specialty Start Date End Date Genaro Bonilla DNP PCP - General Family Medicine 11/12/18 10/03/20 documented as of this encounter
--- OUTSIDE RECORDS SUMMARY | 2023-12-08 14:53 | XMS_ITS | Encounter Summary ---
Author Organization Count Includes [facility] Address [facility] [place] [address] Care Team Providers Care Pci Security Consultant Name Role Phone Genaro Bonilla DNP Primary Care Provider Encounter Details Date Type Department Care Team (Late st Contact Info) Description 03/30/2019 Notes [place] [address] River Ramirez MD [facility] [place] [address] Social History Tobacco Use Types Packs/Day Years Used Date Smoking Tobacco: Former Cigarettes 0.5 40 0 10/18/1978 - 10/18/2018 Smokeless Tobacco: Never Sex and Gender Information Value Date Recorded Sex Assigned at Not on file Gender Identity Not on file Sexual Orientation Not on file documented as of this encounter Progress Notes * River Ramirez MD - 03/30/2019 9:43 AM EST Pre-procedure note for needle breast biopsies performed in radiology. Procedure date: Today Procedure type: left breast ultrasound guided biopsy Allergies: Sulfa (sulfonamide antibiotics) Medications: Current Outpatient Medications: ??? VITAMIN B-1 100 mg Tablet, take 1 tablet by mouth once daily, Disp: , Rfl: 0 ??? pregabalin (LYRICA) 25 mg Capsule, , Disp: , Rfl: ??? omeprazole (PRILOSEC) 40 mg Capsule, Delayed Release(E.C.), Daily, Disp: , Rfl: ??? naltrexone (DEPADE) 50 mg Tablet, Take 50 mg by mouth Daily., Disp: , Rfl: ??? DAILY-KITTY Tablet, take 1 tablet by mouth once daily, Disp: , Rfl: 0 ??? levothyroxine (SYNTHROID) 50 mcg Tablet, Take 50 mcg by mouth Daily., Disp: , Rfl: ??? magnesium oxide (MAG-OX) 400 mg (241.3 mg magnesium) Tablet, take 1 tablet by mouth twice a day, Disp: , Rfl: 0 ??? cyclobenzaprine (FLEXERIL) 10 mg Tablet, TK 1 T PO HS PRN, Disp: , Rfl: 1 ??? buPROPion XL (WELLBUTRIN XL) 300 mg Tablet Extended Release 24 hr, Take 300 mg by mouth Daily.,Disp: , Rfl: ??? amitriptyline (ELAVIL) 10 mg Tablet, Take 10 mg by mouth Three times a day., Disp: , Rfl: ??? ALPRAZolam (XANAX) 0.5 mg Tablet, Take 0.5 mg by mouth Three times a day., Disp: , Rfl: ??? THIAMINE MONONITRATE, VIT B1, ORAL, Daily, Disp: , Rfl: ??? umeclidinium-vilanterol 62.5-25 mcg/actuation Disk with Device, Inhale 1 puff into the lungs daily., Disp: 60 each, Rfl: 3 ??? predniSONE (DELTASONE) 20 mg Tablet, 40 mg by mouth daily x 7 days, then 30 mg by mouth daily x7 days, then 20 mg by mouth x 7 days, then 10 mg by mouth x 7 days, then stop (Patient not taking: Reported on 02/17/2019), Disp: 36 tablet, Rfl: 0 ??? HYDROcodone-acetaminophen 10-300 mg/15 mL Solution, 1 tablet., Disp: , Rfl: ??? multivit with minerals/lutein (MULTIVITAMIN 50 PLUS ORAL), 1 tablet., Disp: , Rfl: ??? ARIPiprazole (ABILIFY) 5 mg Tablet, Daily, Disp: , Rfl: ??? enoxaparin (LOVENOX) 40 mg/0.4 mL Syringe, Q12H, Disp: , Rfl: ??? escitalopram (LEXAPRO) 20 mg Tablet, take 1 tablet by mouth every morning, Disp: , Rfl: 0 ??? ibuprofen (ADVIL;MOTRIN) 600 mg Tablet, Every 6 hours, as needed PRN For Pain, Disp: , Rfl: ??? CIS Free Text Med - Librium, Taper/Titrate, POTaper/Titrate, PO. Take 2 (TWO)Capsule(s) (50 MG = 2 Capsule(s)) Three times daily for 2 Days.Take 2 (TWO)Capsule(s) (50 MG = 2 Capsule(s)) Twice daily for 2 Days.Take 1 (ONE)Capsule(s) (25 MG = 1 Capsule(s)) Three times daily for 2 Days.Take 1 (ONE) Capsule(s) (25 MG = 1 Capsule(s)) Twice daily for 2 Days. (Patient not taking: No sig reported), Disp: , Rfl: ??? CIS Free Text Med - Albuterol, 90 MC-2 Puff(s), Inh, PRN (Patient not taking: No sig reported), Disp: , Rfl: ??? azithromycin (ZITHROMAX) 250 mg tablet, Taper/Titrate, POTaper/Titrate, PO. Take 2 (TWO)Tablet(s) (500 MG = 2 Tablet(s)) Once daily for 1 Day.Take 1 (ONE)Tablet(s) (250 MG = 1 Tablet(s)) Once daily for 4 Days. (Patient not taking: No sig reported), Disp: , Rfl: Anticoagulation status: none stopped on: N/A Imaging reviewed and procedural plan approved by Dr. RIVER RAMIREZ MD documented in this encounter Plan of Treatment Not on file documented as of this encounter Visit Diagnoses Not on filedocumented in this encounter Care Teams Pci Security Consultant Relationship Specialty Start Date End Date Genaro Bonilla DNP PCP - General Family Medicine 11/12/18 10/03/20 documented as of this encounter
--- OUTSIDE RECORDS SUMMARY | 2023-12-08 14:53 | XMS_ITS | Encounter Summary ---
[place] [address] Care Team Providers Care Sharepoint Designer Developer Name Role Phone Genaro Bonilla DNP Primary Care Provider Encounter Details Date Type Department Care Team (Late st Contact Info) Description 05/05/2019 [place] [phone] Keira Menard, PLASTIC ROLLER Social History Tobacco Use Types Packs/Day Years [...] on filedocumented in this encounter Care Teams Sharepoint Designer Developer Relationship Specialty Start Date End Date Genaro Bonilla DNP PCP - General Family Medicine 11/12/18 10/03/20 documented as of this encounter
--- OUTSIDE RECORDS SUMMARY | 2023-12-08 14:53 | XMS_ITS | Encounter Summary ---
Author Organization [facility] [place] [address] Care Team Providers Care Hvac/R Service Technician Name Role Phone Genaro Bonilla DNP Primary Care Provider Encounter Details Date Type Department Care Team (Late st Contact Info) Description 02/10/2019 [place] [phone] Evangelista Marquez II Social History Tobacco Use Types Packs/Day Years Used Date Smoking Tobacco: Former Cigarettes 0.5 40 Smokeless Tobacco: Never Sex and Gender Information Value Date Recorded Sex Assigned at Not on file Gender Identity Not on file Sexual Orientation Not on file documented as of this encounter Miscellaneous Notes * Telephone Encounter - Evangelista Marquez II - 02/10/2019 9:02 AM EST Spoke to Martina to reschedule her bumped appt w/ Yashira. Rescheduled to 02/17 10a/11a documented in this encounter Plan of Treatment Not on file documented as of this encounter Visit Diagnoses Not on filedocumented in this encounter Care Teams Hvac/R Service Technician Relationship Specialty Start Date End Date Genaro Bonilla DNP PCP - General Family Medicine 11/12/18 10/03/20 documented as of this encounter
--- OUTSIDE RECORDS SUMMARY | 2023-12-08 14:53 | XMS_ITS | Encounter Summary ---
Author Organization [facility] Address [facility] [place] [address] Care Team Providers Care Repair Order Clerk Name Role Phone Genaro Bonilla DNP Primary Care Provider [phone]- [phone] Reason for Referral * Diagnostic Test (Routine) - Closed Specialty Diagnoses / Procedures Referred By Contac t Referred To Contact Radiology Diagnoses Cryptogenic organizing pneumonia Procedures CT Chest wo Contrast (Generic) Deo Pool MD [facility] [place] [address] [facility] [place] [address] Referral ID Status Reason Start Date Expiration Date V [facility] Requested Visits Authorized [id number] Closed Specialty Service Requested 1 1 Encounter Details Date Type Department Care Team (Late st Contact Info) Description 11/19/2018 [place] [phone] Deo Pool MD [facility] [place] [address] Social History Tobacco Use Types Packs/Day Years Used Date Smoking Tobacco: Former Cigarettes 0.5 40 Smokeless Tobacco: Never Sex and Gender Information Value Date Recorded Sex Assigned at Not on file Gender Identity Not on file Sexual Orientation Not on file documented as of this encounter Miscellaneous Notes * Telephone Encounter - Deo Pool MD - 11/19/2018 2:42 PM EDT Call patient regarding PET/CT results. Presence of only mildly FDG avid consolidative mass in the right lower lobe that actually decreased in size since last CT. This is now considered an inflammatory/benign etiology and therefore such conditions such as cryptogenic organizing pneumonia are suspected. Patient is placed on prednisone taper of 40 mg for 7 days, 30 mg for 7 days, 20 mg for 7 days, 10 mg for 7 days. Risk-benefit and alternative medications were discussed with the patient and she isready to proceed. She is actually tolerated this in the past due to her previous history of colitis. For now, I would like for her to return to see me in December with a repeat CT chest at that time. documented in this encounter Plan of Treatment Not on file documented as of this encounter Results * (ABNORMAL) CT Chest wo Contrast (Generic) (02/17/2019 10:12 AM EST) Anatomical Region Laterality Modality Chest Computed Tomogra phy Addenda Addendum by Bree Perkins MD on 02/17/2019 11:55 AM EST --------ADDENDUM #1-------- At 10:50am on 02/17/2019 the workflow coordinator spoke with Deo Pool MD to read the impression/unexpected finding on this exam. Thank you for letting us participate in the care of this patient. For questions regarding this report, please contact the number below. ? --------ORIGINAL REPORT -------- EXAMINATION: CT CHEST WO CONTRAST (GENERIC) CLINICAL HISTORY: buffer copper TECHNIQUE: 3.75mm thick axial contiguous sections were obtained through the chest via helical acquisition without intravenous contrast administration. Thin-section reconstructions as well as coronal and sagittal reformatted images were generated. COMPARISON: 10/07/2018 CT and PET/CT from 11/19/2018 FINDINGS: Pulmonary parenchyma: The RIGHT lower lobe pleurally based mass has further decreased in size from the PET CT (previously 4.9 x 2.6 cm, now 3.7 x 2.1 cm) the remainder of both lungs are clear Airways: No significant findings. Pleura: No significant findings. Lymph nodes:No significant findings. Heart, pericardium, and great vessels: No significant findings. Other mediastinal structures: No hernia Lower neck: No significant findings. Upper abdomen: No significant findings. Body wall soft tissues: There is a 2.7 cm mass in the upper inner LEFT breast which is a significant change compared to the patient's CT from 11/19/2018 Skeletal structures: Unchanged T10 compression fracture IMPRESSION: Continued gradual decrease in the RIGHT lower lobe mass, now 3.7 cm 2.7 cm mass in the LEFT breast. Note this was worked up by an outside institution in November but has further significantly increased since that time. A biopsy was performed, however the findings were nonspecific and I would highly recommend repeat diagnostic mammography and ultrasound at [facility]. Unexpected finding Thank you for letting us participate in the care of this patient. For questions regarding this report, please contact the number below. ? Addendum by Bree Perkins MD on 02/17/2019 10:58 AM EST --------ADDENDUM #1-------- At 10:50am on 02/17/2019 the workflow coordinator spoke with Deo Pool MD to read the impression/unexpected finding on this exam. --------ORIGINAL REPORT -------- EXAMINATION: CT CHEST WO CONTRAST (GENERIC) CLINICAL HISTORY: buffer copper TECHNIQUE: 3.75mm thick axial contiguous sections were obtained through the chest via helical acquisition without intravenous contrast administration. Thin-section reconstructions as well as coronal and sagittal reformatted images were generated. COMPARISON: 10/07/2018 CT and PET/CT from 11/19/2018 FINDINGS: Pulmonary parenchyma: The RIGHT lower lobe pleurally based mass has further decreased in size from the PET CT (previously 4.9 x 2.6 cm, now 3.7 x 2.1 cm) the remainder of both lungs are clear Airways: No significant findings. Pleura: No significant findings. Lymph nodes:No significant findings. Heart, pericardium, and great vessels: No significant findings. Other mediastinal structures: No hernia Lower neck: No significant findings. Upper abdomen: No significant findings. Body wall soft tissues: There is a 2.7 cm mass in the upper inner LEFT breast which is a significant change compared to the patient's CT from 11/19/2018 Skeletal structures: Unchanged T10 compression fracture IMPRESSION: Continued gradual decrease in the RIGHT lower lobe mass, now 3.7 cm 2.7 cm mass in the LEFT breast. Note this was worked up by an outside institution in November but has further significantly increased since that time. A biopsy was performed, however the findings were nonspecific and I would highly recommend repeat diagnostic mammography and ultrasound at [facility]. Unexpected finding Thank you for letting us participate in the care of this patient. For questions regarding this report, please contact the number below. ? Impressions 02/17/2019 10:47 AM EST Continued gradual decrease in the RIGHT lower lobe mass, now 3.7 cm 2.7 cm mass in the LEFT breast. Note this was worked up by an outside institution in November but has further significantly increased since that time. A biopsy was performed, however the findings were nonspecific and I would highly recommend repeat diagnostic mammography and ultrasound at [facility]. Unexpected finding Thank you for letting us participate in the care of this patient. For questions regarding this report, please contact the number below. ? Narrative 02/17/2019 10:47 AM EST EXAMINATION: CT CHEST WO CONTRAST (GENERIC) CLINICAL HISTORY: buffer copper TECHNIQUE: 3.75mm thick axial contiguous sections were obtained through the chest via helical acquisition without intravenous contrast administration. Thin-section reconstructions as well as coronal and sagittal reformatted images were generated. COMPARISON: 10/07/2018 CT and PET/CT from 11/19/2018 FINDINGS: Pulmonary parenchyma: The RIGHT lower lobe pleurally based mass has further decreased in size from the PET CT (previously 4.9 x 2.6 cm, now 3.7 x 2.1 cm) the remainder of both lungs are clear Airways: No significant findings. Pleura: No significant findings. Lymph nodes:No significant findings. Heart, pericardium, and great vessels: No significant findings. Other mediastinal structures: No hernia Lower neck: No significant findings. Upper abdomen: No significant findings. 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
--- OUTSIDE RECORDS SUMMARY | 2023-12-08 14:53 | XMS_ITS | Encounter Summary ---
Author Organization [facility] Address [facility] [place] [address] Care Team Providers Care Decorative Engraver Apprentice Name Role Phone IreneGenarosam MARTIN Primary Care Provider Reason for Referral * Diagnostic Test (Routine) - Closed Specialty Diagnoses / Procedures Referred By Contac t Referred To Contact Radiology Diagnoses Lung mass Procedures CT Guided Biopsy Deo Henderson MD [facility] [place] [address] [facility] [place] [address] Referral ID Status Reason Start Date Expiration Date V isits Requested Visits Authorized [id number] Closed Specialty Service Requested 02/17/2019 08/18/2020 1 1 Reason for Visit * Diagnostic Test (Routine) - Closed Specialty Diagnoses / Procedures Referred By Contac t Referred To Contact Radiology Diagnoses Lung mass Procedures CT Guided Biopsy Lung Deo Pool [place] [facility] [place] [address] [facility] [place] [address] Referral ID Status Reason Start Date Expiration Date V isits Requested Visits Authorized [id number] Closed Specialty Service Requested 02/17/2019 08/18/2020 1 1 Encounter Details Date Type Department Care Team (Latest Contact Info) Description 03/07/2019 8:09 AM EST - 03/07/2019 10:37 AM EST Hospital Encounter CT Scan at [facility] [place] [address] Deo Pool MD [facility] [place] [address] Pre-op testing; Lung mass Discharge Disposition: Home Social History [...] Sign Reading Time Taken Comments Blood Pressure 131/73 03/07/2019 10:20 AM EST Pulse 95 03/07/2019 10:20 AM EST Temperature - - Respiratory Rate 20 03/07/2019 10:20 AM EST Oxygen Saturation 99% 03/07/2019 10:20 AM EST Inhaled Oxygen Concentration - - Weight - - Height - - Body Mass Index - - documented in this encounter Discharge Instructions * Discharge Instructions* Pushpa Witt RN - 03/07/2019 10:[address] [facility] Vascular and Interventional Radiology Biopsy Discharge Instructions ??? Liver, kidney or bone biopsy: call your doctor immediately if you develop a sudden onset of weakness, increased pain or swelling at the biopsy site or heavy bleeding at the biopsy site. ??? Lung biopsy: coughing up a little blood is common during the next 24 hours. If large blood clots come up, or if the bleeding gets worse, you should contact us or your doctor immediately. The mostcommon complication is collapse of the lung. The symptoms of lung collapse are increasing pain on breathing, often extending into the shoulder on the side of the biopsy, and increasing difficulty breathing. If these symptoms occur after you leave the hospital, have someone drive you to the nearest Emergency Department as it must be treated promptly or call 911. Activity And Diet: ??? Go home and rest quietly for the remainder of the day. You may resume your normal activities tomorrow. ??? Resume your usual diet after the procedure. ??? Do not drive, sign any important/legal documents, or make any important decisions for 24 hours following sedation medications. When to call your healthcare provider: ??? If you see any redness, swelling or drainage at the biopsy site. ??? If you develop chills. ??? If you have a fever greater than or equal to 101 degrees Fahrenheit. ??? If you develop pain around the biopsy site. Bandage: ??? Check the dressing/bandaid throughout the day for an increase in drainage. Keep the biopsy sitedry for 24 hours. Replace the bandaid as needed. You may shower 24 hours after the biopsy. Medication: ??? DO NOT take aspirin-containing products, ibuprofen, or blood-thinning medication for the next 24 hours unless your clinician says you may do so. ??? Generally you may use acetaminophen as needed for discomfort unless you have liver disease and are instructed not to take acetaminophen. Biopsy Results ??? The results of your biopsy should be available within 5 business days and will be reported to you by your primary health and social care teacher or the clinician who ordered the biopsy. Please do not call us forresults as we will not have them. ??? If you have not been contacted by your clinician within 5 business days you should call that office for further information. When to call the Interventional Radiology Department: Please call with any questions or concerns. If it is during regular office hours, please call [phone]. If it is after regular office hours, or on weekends or holidays, please call [phone] and ask to speak to the Liaison Engineer grounds person for Interventional Radiology. You have received medication during your procedure to help lessen anxiety and keep you comfortable.These medications affect judgement and reaction time. We recommend that you do not drive, operate equipment, sign any important documents, or smoke unattended for 24 hours following your procedure. Because of the sedation, be careful on stairs, as you may be unsteady on your feet. You may resume your regular diet as tolerated. IV site -- slight redness, or tenderness is normal, you can use a warm compress. If tenderness and redness increases or foul drainage occurs, please contact your M. D. Revised 12/09/18 documented in this encounter Medications at Time of Discharge [...] 09/09/2006 06/13/2020 documented as of this encounter Progress Notes * Yocasta Dewey RN - 03/07/2019 10:37 AM EST Interventional and Vascular Radiology Post-Procedure Call Name: Martina Kuhn Age: 63 y.o. Sex; Female Date of : 1955 (home) Telephone Information: PCP Genaro Bonilla APRN [phone] Date/Time of call: March 08, 2019/10:19 AM Procedure: CT guided lung biopsy Procedural Provider: Chicho Contact with patient or if not, with whom? Message left on answering machine? Yes on cell phone listed Provider notified via phone or email if unable to contact pt: (yes/no) Are you having pain related to your procedure now? Lung bx: Any shortness of breath, coughing up blood or chest pain? Are you having any swelling or bleeding from the site? Are there any improvement in your symptoms? Are you having any other problems related to your procedure? Comments: Did you understand the discharge instructions given and do you have any questions? Comments: Do you have any comments about your Nurse or Provider or the care you received? Nurse Comments: * Pushpa Witt RN - 03/07/2019 9:41 AM EST To procedure room c scan 2 via stretcher. Onto table prone All monitors, O2, safety strap in place.Med's per protocol. * Pushpa Witt RN - 03/02/2019 2:09 PM EST ANGIO NURSING DATABASE Name: MARTINA KUHN Date of : 1955 AGE: 63 y.o. Address: [address] [place] [address] (home) Mobile: Telephone Information: Referring Provider: Deo Pool V REASON FOR VISIT: Order Questions Answers Where will study be performed? [facility] Radiology [120] Laterality Right Is the patient on anticoagulant / anitplatelet therapy ? Low Molecular Weight Heparin Does the patient have any pertinent outside imaging? No Reason for exam and clinical history: Can stop Lovenox without bridiging Stat read required? No Does patient require sedation? None Allergies Allergen Reactions ??? Sulfa (Sulfonamide Antibiotics) Other (See Comments) Caused chills and sweating Pertinent PMH: There is no problem list on file for this patient. Pertinent PSH: No past surgical history on file. Date/Procedure Meds given/comments 03/07/2019 lung biospy Fentanyl 150mcg Versed 1.5 mg Laboratory Results: Lab Results Component Value Date CREATININE 0.71 11/12/2018 Lab Results Component Value Date K 4.5 11/12/2018 Lab Results Component Value Date PLATELET 325 11/12/2018 Medications: Prior to Admission medications Medication Sig Start Date End Date Taking? Authorizing Provider umeclidinium-vilanterol 62.5-25 mcg/actuation Disk with Device Inhale 1 puff into the lungs daily. 02/17/19 Deo Pool MD predniSONE (DELTASONE) 20 mg Tablet 40 mg by mouth daily x 7 days, then 30 mg by mouth daily x 7 days, then 20 mg by mouth x 7 days, then 10 mg by mouth x 7 days, then stop Patient not taking: Reported on 02/17/2019 11/23/18 Deo Pool MD HYDROcodone-acetaminophen 10-300 mg/15 mL Solution 1 tablet. 10/09/18 PROVIDER, HISTORICAL multivit with minerals/lutein (MULTIVITAMIN 50 PLUS ORAL) 1 tablet. 09/08/18 PROVIDER, HISTORICAL ARIPiprazole (ABILIFY) 5 mg Tablet Daily 06/23/18 PROVIDER, HISTORICAL enoxaparin (LOVENOX) 40 mg/0.4 mL Syringe Q12H 10/09/18 PROVIDER, HISTORICAL escitalopram (LEXAPRO) 20 mg Tablet take 1 tablet by mouth every morning 08/23/18 PROVIDER, HISTORICAL ibuprofen (ADVIL;MOTRIN) 600 mg Tablet Every 6 hours, as needed PRN For Pain 10/07/18 PROVIDER, HISTORICAL CIS Free Text Med - Librium Taper/Titrate, POTaper/Titrate, PO. Take 2 (TWO)Capsule(s) (50 MG = 2 Capsule(s)) Three times daily for 2 Days.Take 2 (TWO)Capsule(s) (50 MG = 2 Capsule(s)) Twice daily for 2 Days.Take 1 (ONE)Capsule(s) (25 MG = 1 Capsule(s)) Three times daily for 2 Days.Take 1 (ONE)Capsule(s) (25 MG = 1 Capsule(s)) Twice daily for 2 Days. Patient not taking: No sig reported 09/09/06 CIS Free Text Med - Albuterol 90 MC-2 Puff(s), Inh, PRN Patient not taking: No sig reported 09/09/06 azithromycin (ZITHROMAX) 250 mg tablet Taper/Titrate, POTaper/Titrate, PO. Take 2 (TWO)Tablet(s) (500 MG = 2 Tablet(s)) Once daily for 1 Day.Take 1 (ONE)Tablet(s) (250 MG = 1 Tablet(s)) Once daily for 4 Days. Patient not taking: No sig reported 09/09/06 documented in this encounter H&P Notes * Andi La DO - 03/07/2019 8:45 AM EST INTERVENTIONAL RADIOLOGY FOCUSED H&P: Procedure: CT-guided RIGHT lung biopsy The patient's history and physical exam have been reviewed and completed. There has been no interval change from that of the pre-operative history and physical exam done within the last 30 days. Physical Exam: Cardiovascular: Regular, Normal Pulmonary: Breath sounds clear to auscultation The planned procedure (and sedation plan if appropriate) , its benefits and risks, and alternativeswere discussed with the patient. The patient consented to the procedure. PRE-SEDATION ASSESSMENT: Sedation Plan: moderate (conscious sedation) ASA: 2: Patient with mild systemic disease Mallampati: I: soft palate, fauces, tonsillar pillars and uvula can be seen Confirm NPO status: Yes History of anesthetic complications: No Current medications reviewed: Yes Allergies reviewed: Yes Source Note - Owen Sparks MD - 02/17/2019 1:43 PM [...] 40 pack year history. PET CT in [facility] showed nonspecific peripherally avid lesion in the RLL and breast lesion. Repeat CT 02/17 showed persistent RLL mass/consolidation unchanged c/wSept PET/CT. Request for biopsy to determine if the represents primary lung cancer, metastasis vs [employer] [facility] historyL NO Prior [facility] [place] Past Medical/Surgical History: Medications: Current [...] file Gets together: Not on file Attends restorationist service: Not on file Active member of [...] Procedure Name Priority Date/Time Associated Diagnosis Comments XR CHEST ONE VIEW Routine 03/07/2019 12: 09 PM EST XR CHEST ONE VIEW Routine 03/07/2019 10: [address] GUIDED BIOPSY LUNG Routine 03/07/2019 10:34 AM EST Lung mass SURGICAL PATHOLOGY REPORT Routine 03/07/2019 10:15 AM EST SPECIMEN TO PATHOLOGY Routine 03/07/2019 9:32 AM EST documented in this encounter Results * XR Chest One View (03/07/2019 12:09 PM EST) Anatomical Region Laterality Modality Chest N/A Digital Radiogra phy Impressions 03/07/2019 1:16 PM EST Small right apical pneumothorax. Thank you for letting us participate in the care of this patient. For questions regarding this report, please contact the number below. ? Narrative 03/07/2019 1:16 PM EST EXAMINATION: XR CHEST ONE VIEW CLINICAL HISTORY: s/p right lung biopsy with pneumo eval progression TECHNIQUE: PA chest radiograph 03/07/2019 at 1209 hours. COMPARISON: 03/07/2019 at 1040 hours. FINDINGS: Small pneumothorax is now visible at the right lung apex. Biopsied right lung lesion largely obscured by right hemidiaphragm. No new opacity in either lung. Unchanged cardia mediastinal silhouette. Procedure Note Halley Miller MD - 03/07/2019 EXAMINATION: XR CHEST ONE VIEW CLINICAL HISTORY: s/p right lung biopsy with pneumo eval progression TECHNIQUE: PA chest radiograph 03/07/2019 at 1209 hours. COMPARISON: 03/07/2019 at 1040 hours. FINDINGS: Small pneumothorax is now visible at the right lung apex.Biopsied right lung lesion largely obscured by right hemidiaphragm. No new opacityin either lung. Unchanged cardia mediastinal silhouette. IMPRESSION Small right apical pneumothorax. Thank you for letting us participate in the care of this patient. Forquestions regarding this report, please contact the number below. Lemuel Valentino MD IMG DX ORDERABLES * XR Chest One View (03/07/2019 10:41 AM EST) Anatomical Region Laterality Modality Chest N/A Digital Radiogra phy Impressions 03/07/2019 10:53 AM EST No appreciable postbiopsy pneumothorax. Thank you for letting us participate in the care of this patient. For questions regarding this report, please contact the number below. ? Narrative 03/07/2019 10:53 AM EST EXAMINATION: XR CHEST ONE VIEW CLINICAL HISTORY: s/p right lung biopsy with pneumo, eval progression TECHNIQUE: Portable AP chest radiograph on ??03/07/2019 at 1040 hours. COMPARISON: 09/07/2018. FINDINGS: Biopsied right lung lesion seen at the right base, partially obscured by right hemidiaphragm. No appreciable pneumothorax at the right apex. No pleural fluid seen. Left lung appears clear. Unchanged cardiomediastinal silhouette and vascular markings. Procedure Note Halley Miller MD - 03/07/2019 EXAMINATION: XR CHEST ONE VIEW CLINICAL HISTORY: s/p right lung biopsy with pneumo, eval progression TECHNIQUE: Portable AP chest radiograph on 03/07/2019 at 1040 hours. COMPARISON: 09/07/2018. FINDINGS: Biopsied right lung lesion seen at the right base, partiallyobscured by right hemidiaphragm. No appreciable pneumothorax at the right apex.No pleural fluid seen. Left lung appears clear. Unchanged cardiomediastinal silhouette and vascular markings. IMPRESSION No appreciable postbiopsy pneumothorax. Thank you for letting us participate in the care of this patient. Forquestions regarding this report, please contact the number below. Lemuel Valentino MD IMG DX ORDERABLES * CT Guided Biopsy Lung (03/07/2019 10:34 AM EST) Anatomical Region Laterality Modality Computed Tomogra phy Impressions 03/07/2019 12:39 PM EST Impression: 1. ??Technically successful CT-guided core needle biopsy of the right lower lobe mass. 2. ??Trace right pneumothorax, likely self-limited. This will be followed with short-term chest radiographs. Harness Rigger(s): Resident/Fellow: Andi La DO Attending: Lemuel Valentino MD Procedure/Teaching Attestation: I was present for the procedure. Moderate Sedation Attestation: I was present during the intra-service time as documented by IR nurse. Preliminary report signed by: Andi La at 03/07/2019 10:44 AM I have personally reviewed the image(s) and the resident's interpretation and agree with the findings, Lemuel Valentino at 03/07/2019 12:39 PM Thank you for letting us participate in the care of this patient. For questions regarding this report, please contact the number below. ? Narrative 03/07/2019 12:39 PM EST RADIOLOGY PROCEDURE NOTE Procedure: CT-guided biopsy of right lower lobe pulmonary mass. Indication for Procedure: Right lower lobe mass. Consent: After discussing the risks (including infection, hemorrhage, damage to surrounding structures, respiratory depression, and pneumothorax) and benefits, the patient consented to the procedure. Method of Sedation: Due to the painful nature of the procedure, patient received split doses of intravenous fentanyl and versed from the IR nurse while pulse, pressure, and oxygen saturation were continuously monitored. 1% lidocaine was used for local analgesia. Technique: Prior to beginning the procedure, a standard time out Moment of Truth was performed. The patient was positioned prone on the CT table. ??An initial planning non-contrast localizing CT scan of the chest was obtained. The site for biopsy was identified and marked on the skin with the assistance of the CT laser lights. The skin was prepped and draped in the usual sterile fashion. Local anesthesia provided with 1% lidocaine. A 19 ga introducer needle was directed to the target lesion with the assistance of CT fluoroscopy. Coaxially, 4 core biopsies were taken. The needle was removed. Petroleum gauze and sterile gauze dressing was applied. A post-procedure noncontrast CT scan was obtained. Medications: Please see EMR Contrast: None EBL: <5 cc Complications: Trace right pneumothorax Specimens: 4 core biopsy samples of the right lower lobe mass. Findings: Pre-procedure planning CT exam of the chest showed no significant interval change of the right lower lobe pulmonary mass compared to the 02/17/[address] Intra-procedural CT showed the biopsy needle in the target lesion. Post-biopsy CT showed no hematoma, however, there was a trace right pneumothorax. ??No significant change in size on 5 minute follow-up chest CT. Procedure Note Lemuel Valentino MD - 03/07/2019 RADIOLOGY PROCEDURE NOTE Procedure: CT-guided biopsy of right lower lobe pulmonary mass. Indication for Procedure: Right lower lobe mass. Consent: After discussing the risks (including infection, hemorrhage,damage to surrounding structures, respiratory depression, and pneumothorax) andbenefits, the patient consented to the procedure. Method of Sedation: Due to the painful nature of the procedure, patientreceived split doses of intravenous fentanyl and versed from the IR nurse whilepulse, pressure, and oxygen saturation were continuously monitored. 1% lidocainewas used for local analgesia. Technique: Prior to beginning the procedure, a standard time out Momentof Truth was performed. The patient was positioned prone on the CT table.An initial planning non-contrast localizing CT scan of the chest wasobtained. The site for biopsy was identified and marked on the skin with the assistanceof the CT laser lights. The skin was prepped and draped in the usual sterilefashion. Local anesthesia provided with 1% lidocaine. A 19 ga introducer needlewas directed to the target lesion with the assistance of CT fluoroscopy.Coaxially, 4 core biopsies were taken. The needle was removed. Petroleum gauze andsterile gauze dressing was applied. A post-procedure noncontrast CT scan wasobtained. Medications: Please see EMR Contrast: None EBL: <5 cc Complications: Trace right pneumothorax Specimens: 4 core biopsy samples of the right lower lobe mass. Findings: Pre-procedure planning CT exam of the chest showed nosignificant interval change of the right lower lobe pulmonary mass compared to the 02/17/[address] Intra-procedural CT showed the biopsy needle in thetarget lesion. Post-biopsy CT showed no hematoma, however, there was a traceright pneumothorax. No significant change in size on 5 minute follow-up chestCT. IMPRESSION Impression: 1. Technically successful CT-guided core needle biopsy of the right lowerlobe mass. 2. Trace right pneumothorax, likely self-limited. This will be followedwith short-term chest radiographs. Harness Rigger(s): Resident/Fellow: Andi La DO Attending: Lemuel Valentino MD Procedure/Teaching Attestation: I was present for the procedure. Moderate Sedation Attestation: I was present during the intra-service timeas documented by IR nurse. Preliminary report signed by: Andi La at 03/07/2019 10:44 AM I have personally reviewed the image(s) and the resident's interpretationand agree with the findings, Lemuel Valentino at 03/07/2019 12:39 PM Thank you for letting us participate in the care of this patient. Forquestions regarding this report, please contact the number below. Deo Rebolledo MD IMG CT ORDERABLES * Surgical Pathology Report (03/07/2019 10:15 AM EST) Final Diagnosis [id number] ? Location: [facility] The signing pathologist has (i) examined the relevant preparation(s) for the specimen(s) and (ii) rendered or confirmed the diagnosis(es). . 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 - ??No malignancy is identified. ?? (see Discussion.) Electronically signed by: ??MD Marisela, Alberto Zavala Verified: ??03/10/2019 ?Pathologist Performed at: ??[facility] [place], [place], [place] DISCUSSION AFB, GMS, OMAR, and Gram stains show no evidence of organism. Scattered yellow- pigmented fibrillary and refractile granular structures are seen within necrotic debris, which are favored to represent hematoidin (early heme breakdown product suggestive of recent hemorrhage). ??This case was also reviewed by Dr. Shania Serrato (microbiology). ADDITIONAL STUDIES Whole slide scan: patient relations representative slide(s) Immunohistochemistry Studies: Formalin-fixed, paraffin-embedded tissue [...] diagnostic tests. Block ? Antibody ?Result (Positive/Negative) A1 ? Treponema ?Negative CLINICAL INFORMATION Specimen Submitted: A - Right lung Clinical History and Diagnosis: Lung mass SPECIMEN PROCESSING A - Labeled/Fixative: Right lung, formalin. Quantity/Size: Three 0.7-1.2 cm. Tissue Description: Yellow-mitchell needle core biopsies. Sections/Processing: Entirely submitted in 1 cassette labeled A1. ??ejr 03/10/2019 9:06 AM EST [facility] LUNG STRUCTURE / Unknown 03/07/2019 10:15 AM EST 03/07/2019 10:15 AM EST Deo Rebolledo MD PATHOLOGY/CYTOLOG Y ORDERABLES [facility] [place] [address] * Specimen to Pathology (03/07/2019 9:32 AM EST) AP Specimen 03/07/2019 9:32 AM EST 03/07/2019 9:32 AM EST Narrative [facility] - 03/07/2019 9:32 AM EST Specimen requisition ordered. ??Separate Pathology report to follow Deo Rebolledo MD PATHOLOGY/CYTOLOG Y ORDERABLES Performing Organization Address [facility] de Phone Number [facility] [place] [address] * Prothrombin Time (03/07/2019 8:01 AM EST) Prothrombin Time 11.0 9.4 - 12.5 sec [facility] International Normalization Ratio 1.0 [facility] Comment: An INR <2.0 indicates adequate [...] Lab Deo Rebolledo MD HEMATOLOGY ORDERA BLES Performing Organization Address [facility] de Phone Number [facility] [place] [address] * (ABNORMAL) Platelet count (03/07/2019 8:01 AM EST) Platelet 394(H) 145 - 357 x10(3)/mc L [facility] Immature Plt % 1.1 0.0 - 7.4 % [facility] Comment: Limitation of the Immature Platelet Fraction (IPF)-May be less reliable when the platelet count is less than 48g701/uL due to statistical imprecision. The IPF value [...] in a decreased state of production. References: [employer] The Clinical Value of the Immature Platelet Fraction (IPF) in Cell Recovery Document Number [id number] 07/2010 [employer] The Role of the Immature Platelet Fraction (IPF) in the Differential Diagnosis of Thrombocytopenia, Document [id number] V007/04/13 P007/06 Blood specimen (specimen) 03/07/2019 8:01 AM EST 03/07/2019 8:04 AM EST Narrative Resulting Agency Comment Spec In Lab Deo Rebolledo MD HEMATOLOGY ORDERA BLES [facility] [place] [address] documented in this encounter Visit Diagnoses Diagnosis Pre-op testing Preoperative examination, unspecified Lung mass Swelling, mass, or lump in chest documented in this encounter Administered Medications Inactive Administered Medications - up to 3 most recent administrations Medication Order MAR Action Action Date Dose Rate Site fentaNYL 50 mcg/mL multi-dose injection 25-50 mcg, Intravenous, EVERY 3 MIN PRN, Starting on Thu03/07/19 at 0857, Until Thu03/07/19 at 1149, Pain, per unit protocol, - Start dose 50 mcg (reduce dose to 25 mcg if history of sedation sensitivity). - Titration dose 25-50 mcg IV, (based on patient response) every 3 minutes PRN, to maintain procedural pain less than 2 per pain Scale. Maximum dose: 50 mcg/dose, 250 mcg/hour For use in Interventional Radiology (IR) only for procedural sedation with direct provider supervision and verbal order., Angio/IR (Intra-Procedure), Routine Given 03/07/2019 10:08 AM EST 50 mcg Given 03/07/2019 9:55 AM EST 50 mcg Given 03/07/2019 9:00 AM EST 50 mcg lidocaine (XYLOCAINE) 10 mg/mL (1 %) injection 10 mg 10 mg, Subcutaneous, ONCE, 1 dose, On Thu03/07/19 at 0915, For use in Interventional Radiology (IR) only for procedure with direct provider supervision and verbal order., Angio/IR (Intra-Procedure), Routine Given 03/07/2019 9:15 AM EST 10 mg midazolam (PF) (VERSED) multi-dose injection 0.5-1 mg 0.5-1 mg, Intravenous, EVERY 3 MIN PRN, Starting on Thu03/07/19 at 0857, Until Thu03/07/19 at 1149, Sleep, - Start dose; 1 mg (Reduce dose to 0.5 mg if history of sedation sensitivity). - Titration dose: 0.5 mg - 1 mg (based on patient response) every 3 minutes PRN to obtain RASS score of -3. Maximum dose: 1 mg per dose, 5 mg/hour. For use in Interventional Radiology (IR) only for procedural sedation with direct provider supervision and verbal order., Angio/IR (Intra-Procedure), Routine Given 03/07/2019 10:12 AM EST 0.5 mg Given 03/07/2019 9:55 AM EST 0.5 mg Given 03/07/2019 9:00 AM EST 0.5 mg documented in this encounter Care Teams Decorative Engraver Apprentice Relationship Specialty Start Date End Date Genaro Bonilla DNP PCP - General Family Medicine 11/12/18 10/03/20 documented as of this encounter
--- OUTSIDE RECORDS SUMMARY | 2023-12-08 14:53 | XMS_ITS | Encounter Summary ---
Author Organization [facility] Address [facility] [place] [address] Care Team Providers Care Information Systems Security Specialist Name Role Phone Genaro Bonilla MARTIN Primary Care Provider Reason for Visit * Reason Comments Advice Only * Consultation (Urgent) - Closed Specialty Diagnoses / Procedures Referred By Contac t Referred To Contact Hematology and Oncology Diagnoses Breast mass Deo Pool MD [facility] [place] [address] [facility]c [address] [place] [address] Referral ID Status Reason Start Date Expiration Date V isits Requested Visits Authorized [id number] Closed Consult, Test & Treat 02/17/2019 02/17/2020 1 1 Encounter Details Date Type Department Care Team (Late st Contact Info) Description 03/30/2019 10:45 AM EST Office Visit [place] [address] Yissel Rahman MD [facility] [place] [address] Breast mass, left Social History Tobacco Use Types Packs/Day Years Used Date Smoking Tobacco: Former Cigarettes 0.5 40 0 10/18/1978 - 10/18/2018 Smokeless Tobacco: Never Sex and Gender Information Value Date Recorded Sex Assigned at Not on file Gender Identity Not on file Sexual Orientation Not on file documented as of this encounter Last Filed Vital Signs Vital Sign Reading Time Taken Comments Blood Pressure 125/73 03/30/2019 10:38 AM EST Pulse 85 03/30/2019 10:38 AM EST Temperature 36.8 ??C (98.2 ??F) 03/30/2019 10:[address] Respiratory Rate 18 03/30/2019 10:38 AM EST Oxygen Saturation 97% 03/30/2019 10:38 AM EST Inhaled Oxygen Concentration - - Weight 85.3 kg (188 lb) 03/30/2019 10:38 AM EST with shoes Height 167 cm (5' 5.75) 03/30/2019 10:38 AM EST with shoes Body Mass Index 30.58 03/30/2019 10:38 AM EST documented in this encounter Progress Notes * Yissel Rahman MD - 03/30/2019 10:45 AM EST Subjective: Patient ID: Martina Kuhn is a 63 y.o. female. HPI Ms. Kuhn is seen today in surgical consultation at the request of Dr. Pool. She presents to discuss a pet avid left breast mass. Martina had pneumonia last summer (September,). She was treated but ultimately underwent extensive work up for pulmonary nodules/ infiltrate. During this evaluation, pet scan was obtained (oct, 2018) which revealed a pet avid mass in the upper central left breast. Biopsy of the area was obtained twice but was benign. The lesion continued to grow and repeat imaging was recommended. On evaluation today with ultrasound and mammogram which confirmed a 12mm solid mass which is interpreted as a category V lesion. Biopsy was obtained today. Results are pending. Nodes were normal on ultrasound. Martina does not appreciate any breast masses. 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 No nipple discharge or skin change. FH: maternal and paternal grandmothers with ovarian cancer. No history of breast cancer. SH: quit smoking in last few months. Has 2 sons. Has 2 sisters who are alive and well. PMH: Depression DJD History of tobacco abuse Hypothyroidism GERD H/o PE (recently completed 5 months of lovenox) Review of Systems Constitutional: Positive for fatigue. HENT: Negative. Eyes: Negative. Respiratory: Positive for shortness of breath (able to walk distances but sob after one flight of stairs. recovers quickly). Cardiovascular: Negative. Gastrointestinal: Negative. Endocrine: Negative. Genitourinary: Negative. Musculoskeletal: Positive for arthralgias and back pain. Skin: Negative. Allergic/Immunologic: Negative. Neurological: Negative. Hematological: Negative. Psychiatric/Behavioral: Positive for dysphoric mood. The patient is nervous/anxious. Objective: Physical Exam Constitutional: Appearance: Normal appearance. Skin: Capillary Refill: Capillary refill takes less than 2 seconds. Neurological: General: No focal deficit present. Mental Status: She is alert. Psychiatric: Mood and Affect: Mood normal. Imaging: mammogram and u/s as in HPI. 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 We discussed thesequence of surgery, possible radiation and medical oncology consult. Martina is a candidate for BCT and I think minimizing surgical risk/ OR time would be prudent given ongoing pulmonary issues. Wedid discuss genetic testing if malignancy confirmed. Martina has intact ovaries which may be at risk given FH. I provided a brochure for Martina to review. I will call her once we have tissue diagnosis and we will plan next steps at that time. documented in this encounter Plan of Treatment Scheduled Referrals Name Type Priority Associated Diagnoses Orde r Schedule Referral to Surgical Oncology Outpatient Referral Routine Breast mass Ordered: 02/17/2019 documented as of this encounter Visit Diagnoses Diagnosis Breast mass, left Lump or mass in breast documented in this encounter Care Teams Information Systems Security Specialist Relationship Specialty Start Date End Date Genaro Bonilla DNP PCP - General Family Medicine 11/12/18 10/03/20 documented as of this encounter
--- OUTSIDE RECORDS SUMMARY | 2023-12-08 14:53 | XMS_ITS | Encounter Summary ---
[place] [address] Care Team Providers Care Drywall Sprayer Name Role Phone Genaro Bonilla DNP Primary Care Provider Encounter Details Date Type Department Care Team (Late st Contact Info) Description 11/22/2018 Unscheduled [place] [id number] Anni Gutierrez Social History Tobacco Use Types Packs/Day Years [...] on filedocumented in this encounter Care Teams Drywall Sprayer Relationship Specialty Start Date End Date Genaro Bonilla DNP PCP - General Family Medicine 11/12/18 10/03/20 documented as of this encounter
--- OUTSIDE RECORDS SUMMARY | 2023-12-08 14:53 | XMS_ITS | Encounter Summary ---
Author Organization [facility] Address [facility] [place] [address] Care Team Providers Care Icing Machine Operator Name Role Phone Genaro Bonilla DNP Primary Care Provider Encounter Details Date Type Department Care Team (Late st Contact Info) Description 11/29/2018 Ancillary Procedure Radiology Library at [facility] [place] [address] Genaro Bonilla DNP [address] [place] [id number] Social History Tobacco Use Types Packs/Day Years [...] Comments FILM LIBRARY STORAGE ONLY MAMMO Routine 11/29/2018 12:00 AM EDT documented in this encounter Results * Film Library- Storage Only Mammo (11/29/2018 12:00 AM EDT) Narrative [facility] - 12/16/2018 12:41 PM EDT This exam is auto-finalizing. It's purpose is for storage only. Genaro Bonilla DNP IMG FILM LIBRARY OR DERABLES [facility] [place] documented in this encounter Visit Diagnoses Not on filedocumented in this encounter Care Teams Icing Machine Operator Relationship Specialty Start Date End Date Genaro Bonilla DNP PCP - General Family Medicine 11/12/18 10/03/20 documented as of this encounter
--- OUTSIDE RECORDS SUMMARY | 2023-12-08 14:53 | XMS_ITS | Encounter Summary ---
Author Organization [facility] Address [facility] [place] [address] Care Team Providers Care Ground Operations Superintendent Name Role Phone Genaro Bonilla DNP Primary Care Provider Encounter Details Date Type Department Care Team (Latest Contact Info) Description 01/17/2019 2:57 PM EST - 01/17/2019 11:59 PM EST Hospital [place] [phone] Discharge Disposition: Home Social History Tobacco Use Types Packs/Day Years Used Date Smoking Tobacco: Former Cigarettes 0.5 40 Smokeless Tobacco: Never Sex and Gender Information Value Date Recorded Sex Assigned at Not on file Gender Identity Not on file Sexual Orientation Not on file documented as of this encounter Medications at Time of Discharge Medication Sig Dispensed Refills Start Date End Date cyclobenzaprine (FLEXERIL) 10 mg Tablet TK 1 [...] MONONITRATE, VIT B1, ORAL Daily 09/08/2018 11/08/2019 predniSONE (DELTASONE) 20 mg Tablet 40 [...] Procedure Name Priority Date/Time Associated Diagnosis Comments SURGICAL PATHOLOGY REPORT Routine 01/17/2019 3:01 PM EST documented in this encounter Results * Surgical Pathology Report (01/17/2019 3:01 PM EST) Final Diagnosis [id number] ? Location: [facility] The signing pathologist has (i) examined the relevant preparation(s) for the specimen(s) and (ii) rendered or confirmed the diagnosis(es). . ?Surgical Pathology DIAGNOSIS CONSULTATION CASE Outside slide(s) labeled [id number], collection date 12/31/2018. Needle biopsies: ?Left breast Diagnosis: ?- Benign breast tissue with dense hyalin ?fibrosis (see Discussion) ?- Minute fragment of benign skin Microcalcificatio ns: ??N/A Electronically signed by: ??Tiffani Okeefe DO Verified: ??01/17/2019 ?Pathologist Performed at: ??-[facility] [place] Dept. of Pathology, [place], [place] DISCUSSION I am in agreement with Dr. Aaron's interpretation. The biopsy cores show benign breast tissue with focal atrophic ducts. The stroma shows dense hyalin fibrosis. A few fragments of mature adipose tissue are also present, some of which show focal loss of nuclear detail, raising the possibility of remote fat necrosis. Clinical and radiologic correlation is recommended. CLINICAL INFORMATION Specimen Submitted: CONSULTATION CASE A - 2 slide(s) labeled [id number], collection date 12/31/2018. [id number] Report to: [facility] Surgical Pathology Department [facility], 2nd Floor [address], [place] ??[address] SPECIMEN PROCESSING [facility] ([facility]) pathology slide(s) are reviewed. ??Refer to Diagnosis and Specimen Submitted for specific case information. For the full text of the [facility] report(s) please refer to Non-DH Documentation Pathology in the electronic health record (eDH). 01/17/2019 4:07 PM EST [facility] Consult Case 01/17/2019 3:01 PM EST 01/17/2019 3:01 PM EST Yissel Rahman MD PATHOLOGY/CYTOLOGY ORDERABLES [facility] [place] [address] documented in this encounter Visit Diagnoses Not on filedocumented in this encounter Care Teams Ground Operations Superintendent Relationship Specialty Start Date End Date Genaro Bonilla DNP PCP - General Family Medicine 11/12/18 10/03/20 documented as of this encounter
--- OUTSIDE RECORDS SUMMARY | 2023-12-08 14:53 | XMS_ITS | Encounter Summary ---
Author Organization [facility] Address [facility] [place] [address] Care Team Providers Care Licensed Sales Assistant Name Role Phone Genaro Bonilla DNP Primary Care Provider Encounter Details Date Type Department Care Team (Late st Contact Info) Description 09/15/2019 External Results Radiology Library at [facility] [place] [address] Ramsey Santana MD [facility] [place] [address] Social History Tobacco Use Types Packs/Day Years [...] Procedure Name Priority Date/Time Associated Diagnosis Comments ULTRASOUND SCAN (SCAN) Routine 08/30/2019 documented in this encounter Results * Scan Doc: Ultrasound (08/30/2019) Anatomical Region Laterality Modality Other Ramsey Santana MD [facility] MGR SCAN EXT O RDR/RSLT documented in this encounter Visit Diagnoses Not on filedocumented in this encounter Care Teams Licensed Sales Assistant Relationship Specialty Start Date End Date Genaro Bonilla DNP PCP - General Family Medicine 11/12/18 10/03/20 documented as of this encounter
--- OUTSIDE RECORDS SUMMARY | 2023-12-08 14:53 | XMS_ITS | Encounter Summary ---
Author Organization [facility] Address [facility] [place] [address] Care Team Providers Care Information Systems Technician Name Role Phone Genaro Bonilla DNP Primary Care Provider [phone] Encounter Details Date Type Department Care Team (Late st Contact Info) Description 09/21/2019 Ancillary Procedure Radiology Library at [facility] [place] [address] Morenita Ingram MD [facility] [place] [address] Social History Tobacco Use Types Packs/Day Years [...] FILM LIBRARY STORAGE ONLY CT CHEST Routine 09/21/2019 12:00 AM EDT documented in this encounter Results * Film Library- Storage Only CT Chest (09/21/2019 12:00 AM EDT) Narrative CHARIS[facility] - 09/26/2019 8:29 PM EDT This exam is auto-finalizing. It's purpose is for storage only. Morenita Ingram MD [facility] [place]M LIBRARY ORD ERABLES [facility] documented in this encounter Visit Diagnoses Not on filedocumented in this encounter Care Teams Information Systems Technician Relationship Specialty Start Date End Date Genaro Bonilla DNP PCP - General Family Medicine 11/12/18 10/03/20 documented as of this encounter
--- OUTSIDE RECORDS SUMMARY | 2023-12-08 14:53 | XMS_ITS | Encounter Summary ---
Author Organization [facility] [place] [address] Care Team Providers Care Flotation Operator Name Role Phone Genaro Bonilla DNP Primary Care Provider Encounter Details Date Type Department Care Team (Late st Contact Info) Description 02/28/2019 Telephone [place] [phone] Evangelista Marquez II Social History Tobacco Use Types Packs/Day Years Used Date Smoking Tobacco: Former Cigarettes 0.5 40 0 10/18/1978 - 10/18/2018 Smokeless Tobacco: Never Sex and Gender Information Value Date Recorded Sex Assigned at Not on file Gender Identity Not on file Sexual Orientation Not on file documented as of this encounter Miscellaneous Notes * Telephone Encounter - Evangelista Marquez II - 02/28/2019 3:39 PM EST Spoke to Martina to give her prep instructions and info for her CT guided BX documented in this encounter Plan of Treatment Not on file documented as of this encounter Visit Diagnoses Not on filedocumented in this encounter Care Teams Flotation Operator Relationship Specialty Start Date End Date Genaro Bonilla DNP PCP - General Family Medicine 11/12/18 10/03/20 documented as of this encounter
--- OUTSIDE RECORDS SUMMARY | 2023-12-08 14:53 | XMS_ITS | Encounter Summary ---
Author Organization [facility] Address [facility] [place] [address] Care Team Providers Care Associate Designer Name Role Phone IreneGenaro conn DNP Primary Care Provider [phone] Encounter Details Date Type Department Care Team (Latest Contact Info) Description 03/07/2019 10:38 AM EST - 03/07/2019 11:59 AM EST Hospital Encounter XRay at [address] [place] [address] Lemuel Valentino MD [facility] [address] Discharge Disposition: Home Social History Tobacco Use [...] Comments XR CHEST ONE VIEW Routine 03/07/2019 10: 41 AM EST documented in this encounter Results * XR Chest One View (03/07/2019 10:41 [...] this report, please contact the number below. Electronically signed by: Halley Miller [facility]([phone]), at 03/07/2019 10:53 AM Lemuel Valentino MD IMG DX ORDERABLES documented in this encounter Visit Diagnoses Not on filedocumented in this encounter Care Teams Associate Designer Relationship Specialty Start Date End Date Genaro Bonilla DNP PCP - General Family Medicine 11/12/18 10/03/20 documented as of this encounter
--- OUTSIDE RECORDS SUMMARY | 2023-12-08 14:53 | XMS_ITS | Encounter Summary ---
Author Organization [facility] Address [facility] [place] [address] Care Team Providers Care Business Analytics Faculty Member Name Role Phone Genaro Bonilla DNP Primary Care Provider Encounter Details Date Type Department Care Team (Latest Contact Info) Description 02/22/2019 3:24 PM EST - 02/22/2019 11:59 PM EST Hospital [place] [address] Discharge Disposition: Home Social History Tobacco Use [...] Associated Diagnosis Comments SURGICAL PATHOLOGY REPORT Routine 02/22/2019 3:24 PM EST documented in this encounter Results * Surgical Pathology Report (02/22/2019 3:24 PM EST) Final Diagnosis [id number] ? Location: [facility] The signing pathologist has (i) examined the relevant preparation(s) for the specimen(s) and (ii) rendered or confirmed the diagnosis(es). . ?Surgical Pathology DIAGNOSIS CONSULTATION CASE Outside slide(s) labeled [id number], collection date 02/02/2019. Needle biopsies: ?Left breast Diagnosis: ?Fibrocystic changes including stromal fibrosis, cysts, adenosis, focal usual ductal hyperplasia, columnar cell change, and apocrine metaplasia (see Discussion) Microcalcificatio ns: ??Focal, associated with atrophic and sclerotic lobules Electronically signed by: ??Tiffani Okeefe DO Verified: ??02/24/2019 ?Pathologist Performed at: ??-[facility] [place] Dept. of Pathology, [place], [place] DISCUSSION Focally in one core, the architecture of the stromal fibrosis and cysts/adenosis resembles a sclerosing lesion. Radiologic correlation is recommended. CLINICAL INFORMATION Specimen Submitted: CONSULTATION CASE A - 9 slide(s) labeled [id number], collection date 02/02/2019. [id number] Report to: [facility] Department of Pathology [address], [place] ??[address] Ph: ??[phone] SPECIMEN PROCESSING [facility] ([facility] [place] [facility]) pathology slide(s) are reviewed. ??Refer to Diagnosis and Specimen Submitted for specific case information. For the full text of the [facility] [place] [facility] report please refer to Non-DH Documentation Pathology in the electronic health record (eDH). 02/24/2019 2:23 PM EST [facility] Consult Case 02/22/2019 3:24 PM EST 02/22/2019 3:24 PM EST Yissel Rahman MD PATHOLOGY/CYTOLOGY ORDERABLES Performing Organization Address City/State/[facility] Co de Phone Number [facility] [place] [address] documented in this encounter Visit Diagnoses Not on filedocumented in this encounter Care Teams Business Analytics Faculty Member Relationship Specialty Start Date End Date Genaro Bonilla DNP PCP - General Family Medicine 11/12/18 10/03/20 documented as of this encounter
--- OUTSIDE RECORDS SUMMARY | 2023-12-08 14:53 | XMS_ITS | Encounter Summary ---
Author Organization [facility] Address [facility] [place] [address] Care Team Providers Care Television Repairman Name Role Phone Genaro Bonilla MARTIN Primary Care Provider Reason for Visit * Reason Onset Date Comments Medication Refill 11/19/2018 Encounter Details Date Type Department Care Team (Late st Contact Info) Description 11/19/2018 Refill Pulmonology at [facility] [place] [address] Deo Pool MD [facility] [place] [address] Social History Tobacco Use Types Packs/Day Years Used Date Smoking Tobacco: Former Cigarettes 0.5 40 Smokeless Tobacco: Never Sex and Gender Information Value Date Recorded Sex Assigned at Not on file Gender Identity Not on file Sexual Orientation Not on file documented as of this encounter Miscellaneous Notes * Telephone Encounter - Deo Pool MD - 11/19/2018 1:00 PM EDT Called patient regarding findings of the PET/Ct. The previously noted mass appears to be shrinking in size which is great and is only poorly defined by FDG. Inflammatory etiology is most suspected and hence I will cancel CT guided biopsy of lung and initiate treatment with prednisone therapy for the next 4 weeks. I was not able to reach the patient and hence left a message for a call back documented in this encounter Plan of Treatment Not on file documented as of this encounter Visit Diagnoses Not on filedocumented in this encounter Care Teams Television Repairman Relationship Specialty Start Date End Date Genaro Bonilla DNP PCP - General Family Medicine 11/12/18 10/03/20 documented as of this encounter
--- OUTSIDE RECORDS SUMMARY | 2023-12-08 14:53 | XMS_ITS | Encounter Summary ---
Author Organization [facility] Address [facility] [place] [address] Care Team Providers Care Non Categorical Preschool Teacher Name Role Phone Genaro Bonilla DNP Primary Care Provider Encounter Details Date Type Department Care Team (Late st Contact Info) Description 11/23/2018 Telephone Pulmonology at [facility] [place] [address] Deo Pool MD [facility] [place] [address] Social History Tobacco Use Types Packs/Day Years Used Date Smoking Tobacco: Former Cigarettes 0.5 40 Smokeless Tobacco: Never Sex and Gender Information Value Date Recorded Sex Assigned at Not on file Gender Identity Not on file Sexual Orientation Not on file documented as of this encounter Miscellaneous Notes * Telephone Encounter - Deo Pool MD - 11/23/2018 2:14 PM EDT Called patient regarding finding of hte PET/Ct to answer questions related to the previous call. Apparently prednisone was not prescribed to the correct pharmacy. A new rx directed to the preferred pharmacy in [facility] [place] [facility]. Next, we also disused presence of a L breast soft tissue mass that was noted as an unexpected finding on the PET/CT. Apparently it was previously seen on imaging in 2000. Patient states that she has a mammogram scheduled for next week and will alert her PCP of the finding. Clinically she has no breast related complaints. All questions answered documented in this encounter Plan of Treatment Not on file documented as of this encounter Visit Diagnoses Not on filedocumented in this encounter Care Teams Non Categorical Preschool Teacher Relationship Specialty Start Date End Date Genaro Bonilla DNP PCP - General Family Medicine 11/12/18 10/03/20 documented as of this encounter
--- OUTSIDE RECORDS SUMMARY | 2023-12-08 14:53 | XMS_ITS | Encounter Summary ---
Author Organization [facility] Address [facility] [place] [address] Care Team Providers Care Home Restoration Service Supervisor Name Role Phone Genaro Bonilla DNP Primary Care Provider Encounter Details Date Type Department Care Team (Late st Contact Info) Description 02/09/2019 [place] [phone] Evangelista Marquez II Social History Tobacco Use Types Packs/Day Years Used Date Smoking Tobacco: Former Cigarettes 0.5 40 Smokeless Tobacco: Never Sex and Gender Information Value Date Recorded Sex Assigned at Not on file Gender Identity Not on file Sexual Orientation Not on file documented as of this encounter Miscellaneous Notes * Telephone Encounter - Evangelista Marquez II - 02/09/2019 3:41 PM EST Spoke to Martina to reschedule her bumped appt. I offered her a 3p opening on 02/11, but she refused as we were unable to get CT on Thursday documented in this encounter Plan of Treatment Not on file documented as of this encounter Visit Diagnoses Not on filedocumented in this encounter Care Teams Home Restoration Service Supervisor Relationship Specialty Start Date End Date Genaro Bonilla DNP PCP - General Family Medicine 11/12/18 10/03/20 documented as of this encounter
--- OUTSIDE RECORDS SUMMARY | 2023-12-08 14:53 | XMS_ITS | Encounter Summary ---
Author Organization [facility] Address [facility] [place] [address] Care Team Providers Care Truck Hop Name Role Phone Genaro Bonilla DNP Primary Care Provider Encounter Details Date Type Department Care Team (Late st Contact Info) Description 02/24/2019 Orders [place] [address] Yissel Rahman MD [facility] [place] [address] Breast lump in female Social History Tobacco Use Types Packs/Day Years [...] as of this encounter Results * (ABNORMAL) US Breast Limited Left (03/30/2019 9:48 AM EST) Anatomical Region Laterality Modality Breast [...] AM EST EXAMINATION: MAMMO DIAGNOSTIC CAD AND ADRIAN LEFT, US ??BREAST LIMITED LEFT CLINICAL HISTORY: [...] medial to a hydro-Spencer core biopsy clip. Yissel Rahman MD IMG MAMMO ORDERABLE S * (ABNORMAL) Mammo Diagnostic Cad and Adrian Left (03/30/2019 9:20 AM EST) Anatomical Region [...] below. ? Electronically signed by: Kenzie Cevallos [facility] ([phone]), at 03/30/2019 10:32 AM Narrative 03/30/2019 10:32 AM EST EXAMINATION: MAMMO DIAGNOSTIC CAD AND ADRIAN LEFT, US ??BREAST LIMITED LEFT CLINICAL HISTORY: [...] in female Lump or mass in breast Breast lump in female Lump or mass in breast Breast lump in female Lump or mass in breast documented in this encounter Care Teams Truck Hop Relationship Specialty Start Date End Date Genaro Bonilla DNP PCP - General Family Medicine 11/12/18 10/03/20 documented as of this encounter
--- OUTSIDE RECORDS SUMMARY | 2023-12-08 14:53 | XMS_ITS | Encounter Summary ---
Author Organization [facility] Address [facility] [place] [address] Care Team Providers Care Geodetic Advisor Name Role Phone Genaro Bonilla DNP Primary Care Provider Encounter Details Date Type Department Care Team (Late st Contact Info) Description 02/22/2019 External [place] [address] Provider, Scanning Social History Tobacco Use Types Packs/Day Years [...] Priority Date/Time Associated Diagnosis Comments SURGICAL PATHOLOGY SCAN Routine 02/22/2019 documented in this encounter Results * Scan Doc: Surgical Pathology (02/22/2019) Yissel Rahman MD MEDIA MGR SCAN EXT ORDR/RSLT documented in this encounter Visit Diagnoses Not on filedocumented in this encounter Care Teams Geodetic Advisor Relationship Specialty Start Date End Date Genaro Bonilla DNP PCP - General Family Medicine 11/12/18 10/03/20 documented as of this encounter
--- OUTSIDE RECORDS SUMMARY | 2023-12-08 14:53 | XMS_ITS | Encounter Summary ---
Author Organization [facility] Address [facility] [place] [address] Care Team Providers Care Special Makeup Fx Artist Instructor Name Role Phone Irene, Genaro Figueroasam MARTIN Primary Care Provider Reason for Referral * Consultation (Urgent) - Closed Specialty Diagnoses / Procedures Referred By Contac t Referred To Contact Hematology and Oncology Diagnoses Breast mass Deo Pool MD [facility] [place] [address] [facility] [address] [place] [address] Referral ID Status Reason Start Date Expiration Date V isits Requested Visits Authorized [id number] Closed Consult, Test & Treat 02/17/2019 02/17/2020 1 1 * Diagnostic Test (Routine) - Closed Specialty Diagnoses / Procedures Referred By Contac t Referred To Contact Radiology Diagnoses Lung mass Procedures CT Guided Biopsy Lung Deo Pool MD [facility] [place] [address] [facility] [place] [address] Referral ID Status Reason Start Date Expiration Date V isits Requested Visits Authorized [id number] Closed Specialty Service Requested 02/17/2019 08/18/2020 1 1 Reason for Visit * Reason Comments Follow-up Encounter Details Date Type Department Care Team (Late st Contact Info) Description 02/17/2019 11:00 AM EST Office Visit Pulmonology at [facility] [place] [address] Deo Pool MD [facility] [place] [id number] Breast mass (Primary Dx); Lung mass; COPD, mild Social History Tobacco Use Types Packs/Day Years Used Date Smoking Tobacco: Former Cigarettes 0.5 40 0 10/18/1978 - 10/18/2018 Smokeless Tobacco: Never Sex and Gender Information Value Date Recorded Sex Assigned at Not on file Gender Identity Not on file Sexual Orientation Not on file documented as of this encounter Last Filed Vital Signs Vital Sign Reading Time Taken Comments Blood Pressure 134/82 02/17/2019 10:35 AM EST Pulse 99 02/17/2019 10:35 AM EST Temperature - - Respiratory Rate 18 02/17/2019 10:35 AM EST Oxygen Saturation 98% 02/17/2019 10:35 AM EST Inhaled Oxygen Concentration - - Weight 83.9 kg (185 lb) 02/17/2019 10:35 AM EST Height 165.1 cm (5' 5) 02/17/2019 10:35 AM EST Body Mass Index 30.79 02/17/2019 10:35 AM EST documented in this encounter Progress Notes * Deo Pool MD - 02/17/2019 11:00 AM EST Images from the original note were not included. [facility] Section of Pulmonary and Critical Care Medicine Follow-Up Visit Date of Encounter: 02/17/2019 Location: Office Referring Provider: Deo Pool Md [facility] [place] [address] Pulmonary Problem List: CLINIC PHYSICIAN Hx of L breast nodule, currently under workup Hx of bilateral PEs, on Lovenox therapy Interval History: Ms Kuhn is a 63 yo female that presented to us secondary to non resolving CT chest with presence of bilateral infiltrates. This was first discovered, when she presented to the ER, at outpatient hospital for presence of bilateral DVTs. The CT chest was repeated 2 months or after with ongoing infiltrate and therefore she was referred to the pulmonary clinic for further evaluation. At that time, PET/CT was repeated approximately 2 months after her second CT, which actually demonstrated shrinkage as well as delineation in size of bilateral infiltrates most consistent with inflammatory etiology. Patient was prescribed prednisone taper for approximately 5 weeks and was asked to follow-up in December with repeat CT chest. She returns today for scheduled follow-up. She states that overall she has been feeling unwell. Shemostly describes progressive dyspnea on exertion, especially while walking inclines. She denies anysignificant cough, sputum production or hemoptysis hematemesis. She continues to be on Lovenox for unprovoked PEs and the previously noted left breast mass has been under work-up. She did undergo 2 different biopsies of her left breast mass with 1 of the pathology is being available here for review, which is consistent with some fat necrosis and benign breast tissue. In addition, patient also reports progressive fatigue as well as some intermittent nausea and vomiting that started occurring in the last 2 weeks or so. She denies any weight loss and actually gained another 5to 10 pounds. She is no longer smoker. Past Medical History: No past medical history on file. Past Surgical History: No past surgical history on file. Updated Social History: Current Medications: Medications 11/12/18 1010 Medication Sig Taking? predniSONE (DELTASONE) 20 mg Tablet 40 mg by mouth daily x 7 days, then 30 mg by mouth daily x 7 days, then 20 mg by mouth x 7 days, then 10 mg by mouth x 7 days, then stop HYDROcodone-acetaminophen 10-300 mg/15 mL Solution 1 tablet. multivit with minerals/lutein (MULTIVITAMIN 50 PLUS ORAL) 1 tablet. ARIPiprazole (ABILIFY) 5 mg Tablet Daily enoxaparin (LOVENOX) 40 mg/0.4 mL Syringe Q12H escitalopram (LEXAPRO) 20 mg Tablet take 1 tablet by mouth every morning ibuprofen (ADVIL;MOTRIN) 600 mg Tablet Every 6 hours, as needed PRN For Pain CIS Free Text Med - Librium Taper/Titrate, [...] Days. Patient not taking: No sig reported CIS Free Text Med - Albuterol 90 MC-2 Puff(s), Inh, PRN Patient not taking: No sig reported azithromycin (ZITHROMAX) 250 mg tablet Taper/Titrate, POTaper/Titrate, PO. Take 2 (TWO)Tablet(s) (500 MG = 2 Tablet(s)) Once daily for 1 Day.Take 1 (ONE)Tablet(s) (250 MG = 1 Tablet(s)) Once daily for 4 Days. Patient not taking: No sig reported Adverse Drug Reactions: Allergies Allergen Reactions ??? Sulfa (Sulfonamide Antibiotics) Other (See Comments) Caused chills and sweating Review of Systems: Review of Systems Physical Examination: Ht 165.1 cm (5' 5) Wt 83.9 kg (185 lb) BMI 30.79 kg/m?? AO x3, NAD, however patient appears very nervous No evidence of respiratory distress No neck masses , no lymphadenopathy Mallampati 2 CTAB no crackles auscultated S2 and S2 regular, query P2 present Abd soft, bruising noted Ext; no edema Skin no rashes IMAGING: EXAMINATION: CT CHEST WO CONTRAST (GENERIC) ?? 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 TECHNIQUE: 3.75mm thick axial contiguous sections were obtained through the chest via helical acquisition without intravenous contrast administration. Thin-section reconstructions as well as coronal and sagittal reformatted images were generated. ?? COMPARISON: 10/07/2018 CT and PET/CT from 11/19/2018 ?? FINDINGS: Pulmonary parenchyma: The RIGHT lower lobe pleurally based mass has further decreased in size from the PET CT (previously 4.9 x 2.6 cm, now 3.7 x 2.1 cm) the remainder of both lungs are clear ?? Airways: No significant findings. Pleura: No significant [...] 11/19/2018 Skeletal structures: Unchanged T10 compression fracture ?? IMPRESSION: Continued gradual decrease in the RIGHT lower lobe mass, now 3.7 cm ?? 2.7 cm mass in the LEFT breast. Note this was worked up by an outside institution in November but has further significantly increased since that time. A biopsy was performed, however the findings were nonspecific and I would highly recommend repeat diagnostic mammography and ultrasound at [facility]. Unexpected finding ?? Thank you for letting us participate in the care of this patient. For questions regarding this report, please contact the number below. Addended by Bree Perkins MD on 02/17/2019 10:58 AM Study Result EXAMINATION: CT CHEST WO CONTRAST (GENERIC) ?? 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 TECHNIQUE: 3.75mm thick axial contiguous sections were obtained through the chest via helical acquisition without intravenous contrast administration. Thin-section reconstructions as well as coronal and sagittal reformatted images were generated. ?? COMPARISON: 10/07/2018 CT and PET/CT from 11/19/2018 ?? FINDINGS: Pulmonary parenchyma: The RIGHT lower lobe pleurally based mass has further decreased in size from the PET CT (previously 4.9 x 2.6 cm, now 3.7 x 2.1 cm) the remainder of both lungs are clear ?? Airways: No significant findings. Pleura: No significant [...] 11/19/2018 Skeletal structures: Unchanged T10 compression fracture ?? IMPRESSION Continued gradual decrease in the RIGHT lower lobe mass, now 3.7 cm ?? 2.7 cm mass in the LEFT breast. Note this was worked up by an outside institution in November but has further significantly increased since that time. A biopsy was performed, however the findings were nonspecific and I would highly recommend repeat diagnostic mammography and ultrasound at [facility]. Unexpected finding ?? Thank you for letting us participate in the care of this patient. For questions regarding this report, please contact the number below. OMETRY: CULTURES: PERTINENT LABS: Metabolic Parameters Lab Results Component Value Date NA 141 11/12/2018 K 4.5 11/12/2018 CL 104 11/12/2018 CO2 22 11/12/2018 ANIONGAP 15 11/12/2018 BUN 8 11/12/2018 CREATININE 0.71 11/12/2018 GLUCOSE 102 11/12/2018 CALCIUM 9.3 11/12/2018 Hematologic Parameters Lab Results Component Value Date WBC 5.0 11/12/2018 NEUTOPHILPCT 60.7 11/12/2018 IMMGRANPCT 0.40 11/12/2018 LYMPHOPCT 29.3 11/12/2018 MONOPCT 8.2 11/12/2018 BASOPCT 0.8 11/12/2018 EOSPCT 0.6 11/12/2018 HGB 16.9 (H) 11/12/2018 HCT 51.6 (H) 11/12/2018 RBC 4.71 11/12/2018 MCV 109.6 (H) 11/12/2018 MCHC 32.8 11/12/2018 RDWSD 64.8 (H) 11/12/2018 PLATELET 325 11/12/2018 LFT and Associated Parameters Lab Results Component Value Date AST 26 11/12/2018 ALT 22 11/12/2018 ALKPHOS 77 11/12/2018 BILITOT 0.4 11/12/2018 ALBUMIN 4.3 11/12/2018 Coagulation Parameters Diabetes Laboratory Tests Immunology Laboratory Tests Impression / Plan of Care: Problem List Items Addressed This Visit None Ms Kuhn is a former smoker of 50 pack years, who presented to hospital in September with unprovoked bilateral PEs, now with ongoing presence of right lower lobe mass/consolidation concerning for cryptogenic organizing pneumonia versus metastases versus primary lung CA as well as enlarging left breast mass, status post biopsy x2, question nondiagnostic 1. Right lower lobe mass--today on the repeat CT chest, that allows for a 5 months interval from her first imaging which showed an ongoing decrease in size, however the mass continues to remain at 3.7 cm. Given presence of an enlarging left breast mass which is currently in question of potentially being primary breast malignancy as well as previous smoking status I remain concerned for the right lower lobe mass containing primary cancer cells. Therefore I would like to go forward and recommend CT-guided biopsy of the right lower lesion to ensure that we are only dealing with cryptogenic organizing pneumonia/inflammatory disease and not a malignant process. CT-guided lung biopsy is ordered and patient is instructed that she can actually stop her Lovenox without bridging for the CT-guided biopsy as she had had at least 4 months of treatment with Lovenox for her unprovoked PEs 2. Unprovoked PEs--patient with presence of pneumonia prior to her diagnosis of unprovoked PEs. In the setting of possible breast malignancy or possible lung malignancy I would still recommend ongoing anticoagulation treatment until we are able to rule out both breast and lung primary malignancies as an underlying cause. If that is performed and she does not clearly have any evidence of breast orlung cancer, then cautiously I think anticoagulation may potentially be stopped at 6 months, albeitsome experts would recommend lifelong anticoagulation given the unprovoked nature of bilateral PEs.TTE performed in October as a follow-up did not show any evidence of pulmonary arterial hypertension, although in the future if patient is continues to have dyspnea on exertion this may need to be repeated to rule out development of secondary PAH due to previous PEs 3. Breast mass--at this point in time, patient was notified of the PET avid lesion in the left breast back in November. She did have an ultrasound guided biopsy in [facility] as well as [facility] biopsy in [place], [place] which essentially yielded benign breast tissue and dense fat. Unfortunately,her left breast mass continues to enlarge and therefore I would like for her to be seen by a specialist and referral to a surgical oncologist, Dr. Muro is placed urgently. Again, I would be very reassuring if we already have a CT-guided lung biopsy to ensure that there is no evidence of metastatic spread and therefore I strongly believe that CT-guided lung biopsy as well as evaluation by surgical oncologist are necessary steps going forward 4. Presumed CLINIC PHYSICIAN-patient did complete therapy of 5 weeks of prednisone taper. She did not particularly feel significantly improved after this, nor was she able to tolerate prednisone without any side effects. She typically does have severe anxiety as well as lack of sleep on the prednisone and it aswell as weight gain. For now I will await results of surgical biopsy to provide any further treatment or management. Patient will be contacted 3 business days after this biopsy is available for review to the pathologist. 5. COPD- presence of mild COPD/emphysema. Rx for Anoro given today and instructions provided All of her questions were answered. Patient is being referred for CT-guided lung biopsy as well as surgical oncology given presence of enlarging breast mass. documented in this encounter Plan of Treatment Scheduled Referrals Name Type Priority Associated Diagnoses Orde r Schedule Referral to Surgical Oncology Outpatient Referral Routine Breast mass Ordered: 02/17/2019 documented as of this encounter Results * CT Guided Biopsy Lung (03/07/2019 10:34 AM EST) Anatomical Region Laterality Modality Computed Tomogra phy Impressions 03/07/2019 12:39 PM EST Impression: 1. ??Technically successful CT-guided core needle biopsy of the right lower lobe mass. 2. ??Trace right pneumothorax, likely self-limited. This will be followed with short-term chest radiographs. Concrete Rod Buster(s): Resident/Fellow: Andi La DO Attending: Lemuel Valentino [...] the number below. ? Electronically signed by: Lemuel Valentino [facility] ([phone]), at 03/07/2019 12:39 PM Narrative 03/07/2019 12:39 PM EST RADIOLOGY PROCEDURE [...] This will be followedwith short-term chest radiographs. Concrete Rod Buster(s): Resident/Fellow: Andi La DO Attending: Lemuel Valentino [...] below. Deo Rebolledo MD IMG CT ORDERABLES documented in this encounter Visit Diagnoses Diagnosis Breast mass- Primary Lump or mass in breast Lung mass Swelling, mass, or lump in chest COPD, mild Chronic airway obstruction, not elsewhere classified Pre-op testing Preoperative examination, unspecified Lung mass Swelling, mass, or lump in chest documented in this encounter Care Teams Special Makeup Fx Artist Instructor Relationship Specialty Start Date End Date Genaro Bonilla DNP PCP - General Family Medicine 11/12/18 10/03/20 documented as of this encounter
--- OUTSIDE RECORDS SUMMARY | 2023-12-08 14:53 | XMS_ITS | Encounter Summary ---
Author Organization [facility] Address [facility] [place] [address] Care Team Providers Care Acquisitions Librarian Name Role Phone Genaro Bonilla DNP Primary Care Provider Encounter Details Date Type Department Care Team (Late st Contact Info) Description 01/26/2019 2:15 PM EST Ancillary Procedure Radiology Library at [facility] [place] [phone] Sherlyn Balbuena, [address] [place], [place] [id number] Pain Social History Tobacco Use Types Packs/Day Years [...] Procedure Name Priority Date/Time Associated Diagnosis Comments REQUEST FOR 2ND READ MAMMO Routine 01/26/2019 2:13 PM EST Pain documented in this encounter Results * Request for 2nd read Mammo (01/26/2019 2:13 PM EST) Anatomical Region Laterality Modality SO Impressions 01/26/2019 3:08 PM EST Highly suspicious 0.7 cm mass left breast 9:00 radian 7 cm from the nipple spanning 0.7 cm. This does not correspond to the (benign) sonographic finding. RECOMMENDATION: Recommend redirected ultrasound with ultrasound-guided core biopsy and if still sonographically inapparent then chantell biopsy could be performed. Our facility will coordinate this follow-up. Left breast BI-RADS Category 5: Highly Suggestive of Malignancy - Appropriate Action Should Be Taken right breast BI-RADS Category 1: Negative Please note: The interpretation of the [facility] Breast Imaging Radiologist subspecialist may differ from the original radiologist's interpretation. This is usually not due to a deficiency of the original interpreting radiologist, rather due to the greater skill level afforded by sub-specialization in the field and/or reasonable variations in interpretations. If you have a concern regarding the [facility] interpretation you may contact the [facility] Breast Youth Teacher Office at . Thank you for letting us participate in the care of this patient. For questions regarding this report, please contact the number below. ? Electronically signed by: Kenzie Cevallos [facility] ([phone]), at 01/26/2019 3:08 PM Narrative 01/26/2019 3:08 PM EST INTERPRETATION OF OUTSIDE BREAST IMAGING I have been asked to consult on this patient by Dr. Sherlyn Balbuena because he/she believes a review of this study may change or alter the care of this patient. STUDIES FROM: [facility] DATES: 11/29/2018, 12/15/2018 CLINICAL HISTORY: L br mass; CAT 4, Pt wants to be seen at [facility]; ? Rebiopsy; What Modality is the exam? Mammography; Body Part (please add comments as necessary): Breast; I believe a reinterpretation of this exam may alter care of Patient. Yes. ?? COMPARISONS: 11/02/2012, 02/04/2011, 12/14/2006, 12/12/2005, 06/11/2005, 06/02/2005 FINDINGS: CC and MLO views were obtained of each breast. 2-D and 3- D tomosynthesis images were obtained. Computer aided detection was used. There is a highly suspicious 0.7 cm spiculated mass in the left medial breast quadrant 9:00 radian The outside ultrasound was submitted. Please note: Breast ultrasound is fuel yard operator dependent. Complete assessment of the breast tissue is not possible through static images or cine loops. Because breast ultrasound is a dynamic process the interpretive value of outside images is limited. This does not depict the highly suspicious mammographic finding in the left medial breast. The radiologist does, however, document an unrelated oval mass which corresponds to a long-term stable mammographic finding in the lateral left breast 1:00 radian. . Procedure Note Kenzie Cevallos MD - 01/26/2019 INTERPRETATION OF OUTSIDE BREAST IMAGING I have been asked to consult on this patient by Dr. Sherlyn Balbuena becausehe/she believes a review of this study may change or alter the care of thispatient. STUDIES FROM: [facility] DATES: 11/29/2018, 12/15/2018 CLINICAL HISTORY: L br mass; CAT 4, Pt wants to be seen at [facility]; ?Rebiopsy; What Modality is the exam? Mammography; Body Part (please add commentsas necessary): Breast; I believe a reinterpretation of this exam may altercare of Patient. Yes. COMPARISONS: 11/02/2012, 02/04/2011, 12/14/2006, 12/12/2005, 06/11/2005, 06/02/2005 FINDINGS: CC and MLO views were obtained of each breast. 2-D and 3- D tomosynthesisimages were obtained. Computer aided detection was used. There is a highlysuspicious 0.7 cm spiculated mass in the left medial breast quadrant 9:00 radian The outside ultrasound was submitted. Please note: Breast ultrasound isoperator dependent. Complete assessment of the breast tissue is not possiblethrough static images or cine loops. Because breast ultrasound is a dynamicprocess the interpretive value of outside images is limited. This does not depict thehighly suspicious mammographic finding in the left medial breast. The radiologistdoes, however, document an unrelated oval mass which corresponds to a long-termstable mammographic finding in the lateral left breast 1:00 radian. . IMPRESSION Highly suspicious 0.7 cm mass left breast 9:00 radian 7 cm from thenipple spanning 0.7 cm. This does not correspond to the (benign) sonographicfinding. RECOMMENDATION: Recommend redirected ultrasound with ultrasound-guided core biopsy and ifstill sonographically inapparent then chantell biopsy could be performed. Our facility will coordinate this follow-up. Left breast BI-RADS Category 5: Highly Suggestive of Malignancy -Appropriate Action Should Be Taken right breast BI-RADS Category 1: Negative Please note: The interpretation of the [facility] BreastImaging Radiologist subspecialist may differ from the original radiologist's interpretation. This is usually not due to a deficiency of the original interpreting radiologist, rather due to the greater skill level affordedby sub-specialization in the field and/or reasonable variations ininterpretations. If you have a concern regarding the [facility] interpretation you may [facility] at . Thank you for letting us participate in the care of this patient. Forquestions regarding this report, please contact the number below. Sherlyn Balbuena DO IMG OUTSIDE INTERPRE TATION ORDERABLES documented in this encounter Visit Diagnoses Diagnosis Pain Generalized pain documented in this encounter Care Teams Acquisitions Librarian Relationship Specialty Start Date End Date Genaro Bonilla DNP PCP - General Family Medicine 11/12/18 10/03/20 documented as of this encounter
--- OUTSIDE RECORDS SUMMARY | 2023-12-08 14:53 | XMS_ITS | Encounter Summary ---
Author Organization [facility] Address [facility] [place] [address] Care Team Providers Care Pipe Recovery Specialist Name Role Phone Genaro Bonilla DNP Primary Care Provider Encounter Details Date Type Department Care Team (Late st Contact Info) Description 01/17/2019 External Results Medical Records [facility] [place] [address] Provider, Scanning Social History Tobacco Use Types [...] Associated Diagnosis Comments SURGICAL PATHOLOGY SCAN Routine 01/17/2019 documented in this encounter Results * Scan Doc: Surgical Pathology (01/17/2019) Yissel Rahman MD MEDIA MGR SCAN EXT ORDR/RSLT documented in this encounter Visit Diagnoses Not on filedocumented in this encounter Care Teams Pipe Recovery Specialist Relationship Specialty Start Date End Date Genaro Bonilla DNP PCP - General Family Medicine 11/12/18 10/03/20 documented as of this encounter
--- OUTSIDE RECORDS SUMMARY | 2023-12-08 14:53 | XMS_ITS | Encounter Summary ---
Author Organization [facility] Address [facility] [place] [address] Care Team Providers Care Lathe Operator Name Role Phone Genaro Bonilla DNP Primary Care Provider Encounter Details Date Type Department Care Team (Late st Contact Info) Description 03/14/2019 Telephone Pulmonology at [facility] [place] [address] Deo Pool [place] [address] Social History Tobacco Use Types Packs/Day Years Used Date Smoking Tobacco: Former Cigarettes 0.5 40 0 10/18/1978 - 10/18/2018 Smokeless Tobacco: Never Sex and Gender Information Value Date Recorded Sex Assigned at Not on file Gender Identity Not on file Sexual Orientation Not on file documented as of this encounter Miscellaneous Notes * Telephone Encounter - Deo Pool MD - 03/14/2019 8:31 AM EST Called Ms Kuhn regarding biopsy of lung results. She was sent for an IR guided biopsy of a known lesion given presence of persistent RLL infiltrate and despite its mild appearance and actual milddecrease in size between two follow up CT scans, patient also has a hx of PE as well as a growing Breast lesion, hence the decision was made to ensure that she does not have metastatic vs malignant lung disease. I spoke with hte patient and reassured her that the pathology of the lung is benign scar/atelectasis. This is c/w with probablyCaP and PE related round atelectasis. I do think that she needs another CT chest in 6 months to ensure complete resolution or envolution into a complete scar. In addition, we spoke about her growing L breast lesion. I have referred her to a breast surgeon here at , to have a conversation with an trained expert regarding biopsy results and next steps. Lastly, we discussed her Lovenox schedule. She has been on this for about 5 months since her PE. Although currently she has not hx of cancer, it seems that her PE was provoked from the episode of severe CAP. Hence given no other risk factors, it would be safe for her to stop at 6 months and hence patient will stop in Feburary. She will RTC with us in 6 months with a repeat CT chest. Orders placed documented in this encounter Plan of Treatment Not on file documented as of this encounter Visit Diagnoses Diagnosis Lung nodule- Primary Solitary pulmonary nodule documented in this encounter Care Teams Lathe Operator Relationship Specialty Start Date End Date Genaro Bonilla DNP PCP - General Family Medicine 11/12/18 10/03/20 documented as of this encounter
--- OUTSIDE RECORDS SUMMARY | 2023-12-08 14:53 | XMS_ITS | Encounter Summary ---
Author Organization [facility] Address [facility] [place] [place] [address] Care Team Providers Care Manager Of Construction Name Role Phone IreneGenarosam MARTIN Primary Care Provider Reason for Referral * Diagnostic Test (Routine) - Closed Specialty Diagnoses / Procedures Referred By Contac t Referred To Contact Radiology Diagnoses Cryptogenic organizing pneumonia Procedures CT Chest wo Contrast (Generic) Deo Pool MD [facility] [place] [address] [facility] [place] [address] Referral ID Status Reason Start Date Expiration Date V isits Requested Visits Authorized [id number] Closed Specialty Service Requested 1 1 Reason for Visit * Diagnostic Test (Routine) - Closed Specialty Diagnoses / Procedures Referred By Contac t Referred To Contact Radiology Diagnoses Cryptogenic organizing pneumonia Procedures CT Chest wo Contrast (Generic) Deo Pool MD [facility] [address] [facility] [place] [address] Referral ID Status Reason Start Date Expiration Date V isits Requested Visits Authorized [id number] Closed Specialty Service Requested 1 1 Encounter Details Date Type Department Care Team (Latest Contact Info) Description 02/17/2019 10:00 AM EST - 02/17/2019 11:59 PM EST Hospital [place] [address] Deo Pool [place] [address] Cryptogenic organizing pneumonia Discharge Disposition: Home Social History Tobacco Use [...] Procedure Name Priority Date/Time Associated Diagnosis Comments CT CHEST WO CONTRAST (GENERIC) Routine 02/17/2019 10:12 AM EST Cryptogenic organizing pneumonia documented in this encounter Results * (ABNORMAL) CT Chest [...] the number below. ? Electronically signed by: Bree Perkins [facility] ([phone]), at 02/17/2019 11:50 AM --------ORIGINAL REPORT -------- EXAMINATION: CT CHEST WO CONTRAST (GENERIC) CLINICAL HISTORY: coper hand TECHNIQUE: 3.75mm thick axial contiguous sections were [...] recommend repeat diagnostic mammography and ultrasound at [facility]. Unexpected finding Thank you for letting us participate in the care of this patient. For questions regarding this report, please contact the number below. ? Electronically signed by: ELIZABETH Lambert [facility] ([phone]), at 02/17/2019 10:47 AM Addendum by Bree Perkins MD on 02/17/2019 10:58 AM EST --------ADDENDUM #1-------- At 10:50am on 02/17/2019 the workflow coordinator spoke with Deo Pool MD to read the impression/unexpected finding on this exam. --------ORIGINAL REPORT -------- EXAMINATION: CT CHEST WO CONTRAST (GENERIC) CLINICAL HISTORY: coper hand TECHNIQUE: 3.75mm thick axial contiguous sections were [...] recommend repeat diagnostic mammography and ultrasound at [facility]. Unexpected finding Thank you for letting us participate in the care of this patient. For questions regarding this report, please contact the number below. ? Electronically signed by: Bree Perkins [facility] ([phone]), at 02/17/2019 10:47 AM Impressions 02/17/2019 10:47 AM EST Continued gradual decrease in the RIGHT lower lobe mass, now 3.7 cm 2.7 cm mass in the LEFT breast. Note this was worked up by an outside institution in November but has further significantly increased since that time. A biopsy was performed, however the findings were nonspecific and I would highly recommend repeat diagnostic mammography and ultrasound at [facility]. Unexpected finding Thank you for letting us participate in the care of this patient. For questions regarding this report, please contact the number below. ? Electronically signed by: ELIZABETH Lambert [facility] ([phone]), at 02/17/2019 10:47 AM Narrative 02/17/2019 10:47 AM EST EXAMINATION: CT CHEST WO CONTRAST (GENERIC) CLINICAL HISTORY: coper hand TECHNIQUE: 3.75mm thick axial contiguous sections were [...] this encounter Visit Diagnoses Diagnosis Cryptogenic organizing pneumonia documented in this encounter Care Teams Manager Of Construction Relationship Specialty Start Date End Date Genaro Bonilla DNP PCP - General Family Medicine 11/12/18 10/03/20 documented as of this encounter
--- OUTSIDE RECORDS SUMMARY | 2023-12-08 14:53 | XMS_ITS | Encounter Summary ---
Author Organization [facility] Address [facility] [place] [address] Care Team Providers Care Executive Pilot Name Role Phone Irene Genaro Henrysam MARTIN Primary Care Provider [phone] Reason for Visit * Diagnostic Test (Routine) - Closed Specialty Diagnoses / Procedures Referred By Contac t Referred To Contact Radiology Diagnoses Lung mass Procedures NM PET CT Skull Base to Mid-thigh Deo Pool MD [facility] [place] [address] [facility] [place] [address] Referral ID Status Reason Start Date Expiration Date V isits Requested Visits Authorized [id number] Closed Specialty Service Requested 11/12/2018 02/10/2019 1 1 Encounter Details Date Type Department Care Team (Latest Contact Info) Description 11/19/2018 7:27 AM EDT - 11/19/2018 10:56 AM EDT Hospital En[place] [phone] Deo Pool MD [facility] [place] [address] Discharge Disposition: Home Social History Tobacco Use [...] Procedure Name Priority Date/Time Associated Diagnosis Comments NM PET CT SKULL BASE TO MID-THIGH ([facility]) Routine 11/19/2018 8:46 AM EDT Lung mass POCT GLUCOSE Routine 11/19/2018 7:35 AM EDT documented in this encounter Results * POCT Glucose (11/19/2018 7:35 AM EDT) Glucose, POC 91 65 - 199 mg/dL [facility] Comment: Supplemental ranges: <140 mg/dL before meals <180 mg/dL all other times of the day Blood specimen (specimen) 11/19/2018 7:35 AM EDT 11/19/2018 7:35 AM EDT Deo Rebolledo MD POINT OF CARE HALEY T ORDERABLES [facility] [place] [address] documented in this encounter Visit Diagnoses Not on filedocumented in this encounter Care Teams Executive Pilot Relationship Specialty Start Date End Date Genaro Bonilla DNP PCP - General Family Medicine 11/12/18 10/03/20 documented as of this encounter
--- OUTSIDE RECORDS SUMMARY | 2023-12-08 14:53 | XMS_ITS | Encounter Summary ---
Author Organization [facility] Address [facility] [place] [address] Care Team Providers Care Printed Circuit Board Layout Designer Name Role Phone Genaro Bonilla DNP Primary Care Provider Encounter Details Date Type Department Care Team (Latest Contact Info) Description 03/30/2019 9:10 AM EST - 03/30/2019 9:50 AM EST Hospital [place] [address] Yissel Rahman MD [facility] [place] [address] Breast lump in female Discharge Disposition: Home [...] Name Priority Date/Time Associated Diagnosis Comments MAMMO BREAST US LIMITED LEFT Routine 03/30/2019 9:48 AM EST Breast lump in female documented in this encounter Results * (ABNORMAL) US Breast [...] breast documented in this encounter Care Teams Printed Circuit Board Layout Designer Relationship Specialty Start Date End Date Genaro Bonilla DNP PCP - General Family Medicine 11/12/18 10/03/20 documented as of this encounter
--- OUTSIDE RECORDS SUMMARY | 2023-12-08 14:53 | XMS_ITS | Encounter Summary ---
Author Organization [facility] Address [facility] [place] [address] Care Team Providers Care Grades 1 Thru 6 Home Teacher Name Role Phone Genaro Bonilla DNP Primary Care Provider Encounter Details Date Type Department Care Team (Latest Contact Info) Description 03/07/2019 12:00 PM EST - 03/07/2019 11:59 PM EST Hospital Encounter XRay at [address] [place] [address] Lemuel Valentino MD [facility] [place] [address] Discharge Disposition: Home Social History Tobacco Use [...] VIEW Routine 03/07/2019 12: 09 PM EST documented in this encounter Results [...] number below. Electronically signed by: Halley Miller [facility]([phone]), at 03/07/2019 1:16 PM Lemuel Valentino MD IMG DX ORDERABLES documented in this encounter Visit Diagnoses Not on filedocumented in this encounter Care Teams Grades 1 Thru 6 Home Teacher Relationship Specialty Start Date End Date Genaro Bonilla DNP PCP - General Family Medicine 11/12/18 10/03/20 documented as of this encounter
--- OUTSIDE RECORDS SUMMARY | 2023-12-08 14:54 | XMS_ITS | Clinical Summary ---
Author Organization [facility] Address [address] [place] [address] Care Team Providers Care Cafeteria Helper Name Role Phone John Blackmon MD Primary Care Provider [phone] Allergies Active Allergy Reactions Criticality Noted Date Comments Sulfa (Sulfonamide Antibiotics) 02/23 Hives/ headache Medications Medication Sig Dispensed Refills Start Date End Date Status polyethylene glycol (GOLYTELY) 236-22.74-6.74 gram suspensionIndicatio ns:UC (ulcerative colitis) ([facility]) Follow instructions on 'colonoscopy preparation instructions' sheet. 1 Bottle 0 02/04/2011 Active buPROPion (WELLBUTRIN XL) 300 mg XL tablet Take 300 mg by mouth daily. Active naltrexone (REVIA) 50 mg tablet Take 50 mg by mouth daily. Active alprazolam (XANAX) 0.5 mg tablet Take 0.5 mg by mouth 3 times daily. Active levothyroxine (SYNTHROID) 50 mcg tablet Take 50 mcg by mouth daily. Active amitriptyline (ELAVIL) 10 mg tablet Take 10 mg by mouth 3 times daily. Active Surgical History Surgery Date Site/Laterality Comments SECTION x 2 Medical History Medical History Date Comments Inflammatory bowel disease u c Mental disorder Family History Medical History Relation Comments Breast Cancer Sister Colon Cancer Neg Hx Colon Polyps Neg Hx Endometrial Cancer Neg Hx Esophageal Cancer Neg Hx Ovarian Cancer Neg Hx Pancreatic Cancer Neg Hx Rectal Cancer Neg Hx Stomach Cancer Neg Hx Relation Status Comments Sister Social History Tobacco Use Types Packs/Day Years Used Date Smoking Tobacco: Never Assessed Alcohol Use Standard Drinks/Week Comments Yes 0 (1 standard drink = 0.6 oz pur e alcohol) occ Interpersonal Safety Answer Date Record ed Physically Hurt Never 09/25/2019 Verbally Threaten Not on file 09/25/2019 Sex and Gender Information Value Date Recorded Sex Assigned at Not on file Gender Identity Not on file Sexual Orientation Not on file Obstetrics History Last Filed Vital Signs Vital Sign Reading Time Taken Comments Blood Pressure 98/60 03/05/2011 1104 EST Pulse - - Temperature 36.1 ??C (97 ??F) 03/05/2011 0906 EST Respiratory Rate 16 03/05/2011 1104 EST Oxygen Saturation 97% 03/05/2011 1104 EST Inhaled Oxygen Concentration - - Weight 63.5 kg (140 lb) 03/05/2011 0903 EST Height 165.1 cm (5' 5) 03/05/2011 0903 EST Body Mass Index 23.3 03/05/2011 0903 EST Plan of Treatment Health Maintenance Due Date Last Done Comments RSV Immunization ( o r 60+ Years) (1 - 1-dose 60+ series) 2017 Fall Risk Screening 2022 COVID-19 Vaccine (2022-24 season) 2022 Hepatitis C Screen Completed 04/05/2020 Procedures Procedure Name Priority Date/Time Associated Diagnosis Comments HEPATITIS C AB W REFLEX TO HCV RNA BY PCR Routine 04/05/2020 13:20 EST from Last 3 Months or Most Recently Relevant to Health Maintenance Results * HEPATITIS C AB W REFLEX TO HCV RNA BY PCR (04/05/2020 13:20 EST) Hep C Antibody Negative Negative 2020 11:43 EST [facility] Blood VENOUS BLOOD / Unknown 04/05/2020 13:20 EST 04/06/2020 16:29 EST Provider Outr Resulting Lab CHEMISTRY & BLOOD GAS ORDERABLES [facility] [address] [place] [address] from Last 3 Months or Most Recently Relevant to Health Maintenance Care Teams Cafeteria Helper Relationship Specialty Start Date End Date John Blackmon MD PCP - General General Surgery 02/02/19
--- OUTSIDE RECORDS SUMMARY | 2023-12-08 14:54 | XMS_ITS | Encounter Summary ---
Author Organization [facility] Address [facility] [place] [address] Care Team Providers Care Solvent Mixer Name Role Phone Unavailable Primary Care Provider Unavailabl e Encounter Details Date Type Department Care Team (Late st Contact Info) Description 12/12/2005 Ancillary Procedure Radiology Library at [facility] [place] [address] Genaro Bonilla DNP [address] [place], [place] [id number] Social History Tobacco Use Types Packs/Day Years Used Date Smoking Tobacco: Never Assessed Sex and Gender Information Value Date Recorded Sex Assigned at Not on file Gender Identity Not on file Sexual Orientation Not on file documented as of this encounter Plan of Treatment Not on file documented as of this encounter Procedures Procedure Name Priority Date/Time Associated Diagnosis Comments FILM LIBRARY-STORAGE ONLY US BREAST Routine 12/12/2005 12:00 AM EDT documented in this encounter Results * Film Library Storage Only US Breast (12/12/2005 12:00 AM EDT) Narrative [facility] - 01/26/2019 1:58 PM EST This exam is auto-finalizing. It's purpose is for storage only. Genaro Bonilla DNP IMG FILM LIBRARY OR DERABLES [place] documented in this encounter Visit Diagnoses Not on filedocumented in this encounter
--- OUTSIDE RECORDS SUMMARY | 2023-12-08 14:54 | XMS_ITS | Encounter Summary ---
Author Organization [facility] Address [address] [place] [address] Care Team Providers Care Director Video Name Role Phone John Blackmon MD Primary Care Provider [phone] Encounter Details Date Type Department Care Team ([facility] st Contact Info) Description 02/02/[address] [facility] - Main [place] [address] [place] [address] John Blackmon MD [address] [place] [address] [address] [place] [address] Social History Tobacco Use Types Packs/Day Years Used Date Smoking Tobacco: Never Assessed Alcohol Use Standard Drinks/Week Comments Yes 0 (1 standard drink = 0.6 oz pur e alcohol) occ Sex and Gender Information Value Date Recorded Sex Assigned at Not on file Gender Identity Not on file Sexual Orientation Not on file documented as of this encounter Plan of Treatment Not on file documented as of this encounter Procedures Procedure Name Priority Date/Time Associated Diagnosis Comments SURGICAL PATHOLOGY Routine 02/02/2019 documented in this encounter Results * SURGICAL PATHOLOGY (02/02/2019) 02/02/2019 02/02/2019 10: 59 EST Narrative [facility] - 02/03/2019 14:30 EST ----- ------- Name: ALPA KUHN ?: 59 ?Age/Sex: 63/F ?Unit#: [id number] ? Loc: SDS ? Status: DEP SDC ?? Reg Date: 02/02/19 ? Pt.Phone Number: ? ----- ------- Specimen: [id number] ? STATUS: SOUT ?Spec Date:02/02/19 ? Physician Copies: ?John Blackmon MD ? Tissues: A ?? Breast Stereotactic (LEFT) ? Genaro Bonilla, DNP CPT: 31175 ?? Units: ??1 ?FINAL DIAGNOSIS ? BREAST, LEFT, STEREOTACTIC CORE BIOPSY; ? - Fibrocystic changes including mild stromal fibrosis and duct dilatation, ? adenosis, focal usual ductal hyperplasia, columnar cell change and apocrine ? metaplasia. ? - Involutional changes of lobular tissue noted. ? GROSS DESCRIPTION ? Received in formalin labeled Alpa Kuhn and left ??breast is a ? collection device labeled A-L, stereotactic cores of yellow-mitchell fibrofatty ? tissue is present in all channels, however, it is not indicated which channels ? contain microcalcifications. Cores present in channels A-D which aggregate 1.5 ? x 1.5 x 0.3 cm are submitted in cassette #1. ??Cores from E-H are submitted in ? cassette #2 and aggregate 1.5 x 1.5 x 0.3 cm. ??The remaining needle cores ? aggregate 1.3 x 1.3 x 0.3 cm and are submitted in cassette #3. es 3. KF ?? PREOP DX/CLINICAL HISTORY ?Category 4 mammogram, left breast. Signed ____(signature on file)____ Yu Staley M.D. 02/03/19 ? By the signature above, the attending physician certifies that he/she has personally conducted a gross and/or microscopic examination of the described specimens and rendered or confirmed the above diagnosis. Test Performed by [facility], [address] [place] [address] Gun Stocker: Tawanna Das MD PHD ----- ------- John Blackmon MD PATHOLOGY ORDERABLES [facility] documented in this encounter Visit Diagnoses Not on filedocumented in this encounter Care Teams Director Video Relationship Specialty Start Date End Date John Blackmon MD PCP - General General Surgery 02/02/19 documented as of this encounter
--- OUTSIDE RECORDS SUMMARY | 2023-12-08 14:54 | XMS_ITS | Encounter Summary ---
Author Organization [facility] Address [address] [place] [address] Care Team Providers Care Supervisor [employer] Name Role Phone John Blackmon MD Primary Care Provider Encounter Details Date Type Department Care Team (Late st Contact Info) Description 06/25/2023 Lab Requisition [facility] Pathology & Laboratory Medicine - [facility] [address] [place], [place] [address] Outr Resulting Lab, Provider Social History Tobacco Use Types Packs/Day Years [...] Procedure Name Priority Date/Time Associated Diagnosis Comments CHLAMYDIA/N. GONORRHOEAE AMPLIFIED NUCLEIC ACID Routine 06/25/2023 8:30 EDT documented in this encounter Results * CHLAMYDIA/N. GONORRHOEAE AMPLIFIED RNA (06/25/2023 8:30 EDT) Neisseria gonorrhoeae Result Negative Negative 06/26/2023 14:37 EDT [facility] Chlamydia trachomatis Result Negative Negative 06/26/2023 14:37 EDT [facility] Swab ENDOCERVICAL STRUCTURE / Unknown 06/25/2023 8:30 EDT 06/25/2023 18:24 EDT Provider Outr Resulting Lab MICROBIOLOGY - GENERAL ORDERABLES [facility] [address] [place] [address] documented in this encounter Visit Diagnoses Not on filedocumented in this encounter Care Teams Supervisor [employer] Relationship Specialty Start Date End Date John Blackmon MD PCP - General General Surgery 02/02/19 documented as of this encounter
--- OUTSIDE RECORDS SUMMARY | 2023-12-08 14:54 | XMS_ITS | Encounter Summary ---
Author Organization [facility] Address [address] [place] [address] Care Team Providers Care Housefellow Name Role Phone John Blackmon MD Primary Care Provider [phone] Encounter Details Date Type Department Care Team ([facility] Contact Info) Description 02/02/2019 Results Only Imaging [facility] Radiology Results [address] [place] [address] John Blackmon MD [address] [facility] [address] [place] [address] Social History Tobacco Use Types [...] Procedure Name Priority Date/Time Associated Diagnosis Comments MA STEREO BREAST BIOPSY 02/02/2019 11:39 EST MA BREAST POST BIOPSY CLIP LEFT 02/02/2019 11:39 EST documented in this encounter Results * MA BREAST POST BIOPSY CLIP LEFT (02/02/2019 11:39 EST) Anatomical Region Laterality Modality Breast Left Mammography 02/02/2019 11:3 9 EST Narrative 02/02/2019 11:39 EST ? EXAM: MAMMOGRAM/DIGITAL MAMMO UNI LT POST EX. D/ (1006) ? CLINICAL INFORMATION: ? (L) BREAST ASYMMETRY ? DIGITAL MAMMO UNI LT POST BX, STEREOTACTIC BREAST BIOPSY ? Signs and Symptoms/Comments: ??(L) BREAST ASYMMETRY ? Comparisons: Outside mammography on 12/15/2018, 11/29/2018, 11/02/2012. ? Outside ultrasound breast on 12/29/2018, 12/15/2018. ? FINDINGS: ? LEFT BREAST: ? Specimen Mammogram: Tissue is visible within the specimen. ? Post Stereotactic Biopsy Mammography: 2-D CC, ML and MLO views were ? performed with CAD. There are scattered areas of fibroglandular ? density. ? Expected postbiopsy changes are present in the central, somewhat ? upper inner breast, at the site of the targeted architectural ? distortion/spiculated mass. A new cylindrical marker clip is in ? grossly expected position. ? In addition, a ribbon-shaped marker is present in the anterior outer ? breast, adjacent to a previously biopsied lobulated mass. ? LEFT BREAST IMPRESSION: BI-RADS Category 0: Additional imaging ? required. ? FINAL ASSESSMENT: ??LEFT BREAST - Category 0 - Post procedure ? mammogram for marker placement. ? RECOMMENDATION: Pending pathology results. ? These results will be communicated to your patient via a lay letter ? from Radiology. ??If any additional imaging is needed we will contact ? your patient directly. ? REPORT SIGNED IN OTHER VENDOR SYSTEM 02/02/2019 ?Reported By: Kun Arteaga MD ? CC: ? Transcribed Date/Time: 02/02/2019 (1139) ? Rehabilitation Therapy Technician: ? Printed Date/Time: 02/02/2019 (1143) ? PAGE 1 ? Signed Report ? Procedure Note Kun Arteaga MD - 02/02/2019 EXAM: MAMMOGRAM/DIGITAL MAMMO UNI LT POST EX. D/ (1006) CLINICAL INFORMATION: (L) BREAST ASYMMETRY DIGITAL MAMMO UNI LT POST BX, STEREOTACTIC BREAST BIOPSY Signs and Symptoms/Comments: (L) BREAST ASYMMETRY Comparisons: Outside mammography on 12/15/2018, 11/29/2018,11/02/2012. Outside ultrasound breast on 12/29/2018, 12/15/2018. FINDINGS: LEFT BREAST: Specimen Mammogram: Tissue is visible within the specimen. Post Stereotactic Biopsy Mammography: 2-D CC, ML and MLO views were performed with CAD. There are scattered areas of fibroglandular density. Expected postbiopsy changes are present in the central, somewhat upper inner breast, at the site of the targeted architectural distortion/spiculated mass. A new cylindrical marker clip is in grossly expected position. In addition, a ribbon-shaped marker is present in the anteriorouter breast, adjacent to a previously biopsied lobulated mass. LEFT BREAST IMPRESSION: BI-RADS Category 0: Additional imaging required. FINAL ASSESSMENT: LEFT BREAST - Category 0 - Post procedure mammogram for marker placement. RECOMMENDATION: Pending pathology results. These results will be communicated to your patient via a lay letter from Radiology. If any additional imaging is needed we willcontact your patient directly. REPORT SIGNED IN OTHER VENDOR SYSTEM 02/02/2019 Reported By: Kun Arteaga MD CC: Transcribed Date/Time: 02/02/2019 (8450) Rehabilitation Therapy Technician: Printed Date/Time: 02/02/2019 (1143) PAGE 1 Signed Report John Blackmon MD IMG MAMMOGRAPHY MILY MELVIN * COLLETTE STEREO BREAST BIOPSY (02/02/2019 11:39 EST) Anatomical Region Laterality Modality Breast Mammography 02/02/2019 11:3 9 EST Narrative 02/02/2019 11:39 EST ? EXAM: MAMMOGRAM/STEREOTACTIC BREAST BIOPS EX. D/ (1020) ? CLINICAL INFORMATION: ? (L) BREAST ASYMMETRY ? DIGITAL MAMMO UNI LT POST BX, STEREOTACTIC BREAST BIOPSY ? Signs and Symptoms/Comments: ??(L) BREAST ASYMMETRY ? Comparisons: Outside mammography on 12/15/2018, 11/29/2018, 11/02/2012. ? Outside ultrasound breast on 12/29/2018, 12/15/2018. ? FINDINGS: ? LEFT BREAST: ? Specimen Mammogram: Tissue is visible within the specimen. ? Post Stereotactic Biopsy Mammography: 2-D CC, ML and MLO views were ? performed with CAD. There are scattered areas of fibroglandular ? density. ? Expected postbiopsy changes are present in the central, somewhat ? upper inner breast, at the site of the targeted architectural ? distortion/spiculated mass. A new cylindrical marker clip is in ? grossly expected position. ? In addition, a ribbon-shaped marker is present in the anterior outer ? breast, adjacent to a previously biopsied lobulated mass. ? LEFT BREAST IMPRESSION: BI-RADS Category 0: Additional imaging ? required. ? FINAL ASSESSMENT: ??LEFT BREAST - Category 0 - Post procedure ? mammogram for marker placement. ? RECOMMENDATION: Pending pathology results. ? These results will be communicated to your patient via a lay letter ? from Radiology. ??If any additional imaging is needed we will contact ? your patient directly. ? REPORT SIGNED IN OTHER VENDOR SYSTEM 02/02/2019 ?Reported By: Kun Arteaga MD ? CC: ? Transcribed Date/Time: 02/02/2019 (1139) ? Rehabilitation Therapy Technician: ? Printed Date/Time: 02/02/2019 (7843) ? PAGE 1 ? Signed Report ? Procedure Note Kun Arteaga MD - 02/02/2019 EXAM: MAMMOGRAM/STEREOTACTIC BREAST BIOPS EX. D/ (1020) CLINICAL INFORMATION: (L) BREAST ASYMMETRY DIGITAL MAMMO UNI LT POST BX, STEREOTACTIC BREAST BIOPSY Signs and Symptoms/Comments: (L) BREAST ASYMMETRY Comparisons: Outside mammography on 12/15/2018, 11/29/2018,11/02/2012. Outside ultrasound breast on 12/29/2018, 12/15/2018. FINDINGS: LEFT BREAST: Specimen Mammogram: Tissue is visible within the specimen. Post Stereotactic Biopsy Mammography: 2-D CC, ML and MLO views were performed with CAD. There are scattered areas of fibroglandular density. Expected postbiopsy changes are present in the central, somewhat upper inner breast, at the site of the targeted architectural distortion/spiculated mass. A new cylindrical marker clip is in grossly expected position. In addition, a ribbon-shaped marker is present in the anteriorouter breast, adjacent to a previously biopsied lobulated mass. LEFT BREAST IMPRESSION: BI-RADS Category 0: Additional imaging required. FINAL ASSESSMENT: LEFT BREAST - Category 0 - Post procedure mammogram for marker placement. RECOMMENDATION: Pending pathology results. These results will be communicated to your patient via a lay letter from Radiology. If any additional imaging is needed we willcontact your patient directly. REPORT SIGNED IN OTHER VENDOR SYSTEM 02/02/2019 Reported By: Kun Arteaga MD CC: Transcribed Date/Time: 02/02/2019 (5861) Rehabilitation Therapy Technician: Printed Date/Time: 02/02/2019 (6088) PAGE 1 Signed Report John Blackmon MD IMG MAMMOGRAPHY MILY MELVIN documented in this encounter Visit Diagnoses Not on filedocumented in this encounter Care Teams Housefellow Relationship Specialty Start Date End Date John Blackmon MD PCP - General General Surgery 02/02/19 documented as of this encounter
--- OUTSIDE RECORDS SUMMARY | 2023-12-08 14:54 | XMS_ITS | Encounter Summary ---
Author Organization [facility] Address [facility] [place] [address] Care Team Providers Care Sales And Marketing Administrator Name Role Phone Evangelista Staley MD Primary Care Provider [phone] Encounter Details Date Type Department Care Team (Late st Contact Info) Description 02/04/2011 12:05 AM EST Ancillary Procedure Radiology Library at [facility] [place] [place] [address] Genaro Bonilla DNP [address] [place] [id number] Social History Tobacco Use Types Packs/Day Years [...] Comments FILM LIBRARY STORAGE ONLY MAMMO Routine 02/04/2011 12:05 AM EST documented in this encounter Results * Film Library- Storage Only Mammo (02/04/2011 12:05 AM EST) Narrative RAD - 01/26/2019 1:52 PM EST This exam is auto-finalizing. It's purpose is for storage only. Genaro GONCALVESG FILM LIBRARY OR DERABLES [place], [place] documented in this encounter Visit Diagnoses Not on filedocumented in this encounter Care Teams Sales And Marketing Administrator Relationship Specialty Start Date End Date Evangelista Staley MD PCP - General 01/15/10 06/13/18 documented as of this encounter
--- OUTSIDE RECORDS SUMMARY | 2023-12-08 14:54 | XMS_ITS | Encounter Summary ---
Author Organization [facility] Address [address] [place] [address] Care Team Providers Care Habilitation Assistant Name Role Phone Evangelista Staley MD Primary Care Provider [phone] Encounter Details Date Type Department Care Team (Latest Contact Info) Description 02/04/2011 Orders Only [facility] - [address] [id number] Rangel Carlson MD UC (ulcerative colitis) ([facility]) ([facility]) (Primary Dx) Social History Tobacco Use Types Packs/Day Years Used Date Smoking Tobacco: Never Assessed Sex and Gender Information Value Date Recorded Sex Assigned at Not on file Gender Identity Not on file Sexual Orientation Not on file documented as of this encounter Ordered Prescriptions Prescription Sig Dispensed Refills Start Date End Da te polyethylene glycol (GOLYTELY) 236-22.74-6.74 gram suspensionIndications:U C (ulcerative colitis) ([facility]) Follow instructions on 'colonoscopy preparation instructions' sheet. 1 Bottle 0 02/04/2011 documented in this encounter Plan of Treatment Not on file documented as of this encounter Visit Diagnoses Diagnosis UC (ulcerative colitis) ([facility])- Primary Ulcerative colitis, unspecified documented in this encounter Care Teams Habilitation Assistant Relationship Specialty Start Date End Date Evangelista Staley MD [address] [place] [phone] PCP - General 10/17/10 03/02/11 documented as of this encounter
--- OUTSIDE RECORDS SUMMARY | 2023-12-08 14:54 | XMS_ITS | Encounter Summary ---
Author Organization [facility] Address [facility] [place] [address] Care Team Providers Care Shoe Turner Name Role Phone Unavailable Primary Care Provider Unavailabl e Encounter Details Date Type Department Care Team (Late st Contact Info) Description 06/02/2005 Ancillary Procedure Radiology Library at [facility] [place] [address] Genaro Bonilla DNP [address] [place], [place] [id number] Social History Tobacco Use Types Packs/Day Years [...] Comments FILM LIBRARY STORAGE ONLY MAMMO Routine 06/02/2005 12:00 AM EDT documented in this encounter Results * Film Library- Storage Only Mammo (06/02/2005 12:00 AM EDT) Narrative [facility] - 01/26/2019 2:04 PM EST This exam is auto-finalizing. It's purpose is for storage only. Genaro Bonilla DNP IMG FILM LIBRARY OR DERABLES [facility] [place] documented in this encounter Visit Diagnoses Not on filedocumented in this encounter
--- OUTSIDE RECORDS SUMMARY | 2023-12-08 14:54 | XMS_ITS | Encounter Summary ---
Author Organization [facility] Address [facility] [place] [address] Care Team Providers Care Debt Management Counselor Name Role Phone Evangelista Staley MD Primary Care Provider [phone] Encounter Details Date Type Department Care Team (Late st Contact Info) Description 02/04/2011 Ancillary Procedure Radiology Library at [facility] [place] [address] Genaro Bonilla DNP [address] [place] [id number] Social History Tobacco Use Types Packs/Day Years [...] FILM LIBRARY STORAGE ONLY MAMMO Routine 02/04/2011 12:00 AM EST documented in this encounter Results * Film Library- Storage Only Mammo (02/04/2011 12:00 AM EST) Narrative RAD - 01/26/2019 10:32 AM EST This exam is auto-finalizing. It's purpose is for storage only. Genaro Bonilla DNP IMG FILM LIBRARY OR DERABLES [place], [place] documented in this encounter Visit Diagnoses Not on filedocumented in this encounter Care Teams Debt Management Counselor Relationship Specialty Start Date End Date Evangelista Staley MD PCP - General 01/15/10 06/13/18 documented as of this encounter
--- OUTSIDE RECORDS SUMMARY | 2023-12-08 14:54 | XMS_ITS | Encounter Summary ---
Author Organization [facility] Address [address] [place] [address] Care Team Providers Care Rolls Baker Name Role Phone Unavailable Primary Care Provider Unavailabl e Encounter Details Date Type Department Care Team ([facility] st Contact Info) Description 03/18/2007 Results Only [facility] Gastroenterology - [facility] [address] [place], [place] [address] Rangel Carlson MD Social History Tobacco Use Types Packs/Day Years Used Date Smoking Tobacco: Never Assessed Sex and Gender Information Value Date Recorded Sex Assigned at Not on file Gender Identity Not on file Sexual Orientation Not on file documented as of this encounter Plan of Treatment Not on file documented as of this encounter Procedures Procedure Name Priority Date/Time Associated Diagnosis Comments TPMT AND NUDIX HYDROLASE GENOTYPING, BLOOD Routine 03/18/2007 10:05 EST COMPLETE BLOOD COUNT Routine 03/18/2007 10:05 EST C REACTIVE PROTEIN Routine 03/18/2007 10 :05 EST HEPATIC FUNCTION PANEL (ALB,ALK PHOS,ALT,AST,DBIL,T OT CUAUHTEMOC,TOT PROT) Routine 03/18/2007 10:05 EST documented in this encounter Results * [facility] TPMT GENETICS (03/18/2007 10:05 EST) [facility] TPMT Genetics TPMT/TPMT1 Reference range: TPMT*1/TPMT*1(Note) Alleles present are associated with NORMAL ENZYME ACTIVITY ? Report Reviewed by the Laboratory Agency Service Representative. ? [facility] TPMT Genetic assessment is an analysis to de- ? termine an ability to produce thiopurine methyltransferase ? (TPMT) activity. It is a method to identify patients at ? risk for acute toxicity from 6-MP or azathioprine. This ? profile provides a breakdown of a patient's genetics. The ? distribution of TPMT activity is trimodal; homozygous ? normal (89%), heterozygous (11%) and homozygous recessive ? (0.3%) (1). Approximately 1 in 1213 individuals may have a ? low TPMT enzyme activity (homozygous low) resulting from ? known and theoretical mutations that are not included in ? this panel. ? Notes: Genetic testing results are reported above as the ? individual allele present on each chromosome for three ? different polymorphisms; G238C, G460A, and A719G within the ? TPMT gene on chromosome 6. The alleles are numbered based ? on order of discovery. ? A combination of Cepheid Smart Mix Reagents with [place] ? (Applied Biosystems Sequence Detection System) Prism 7000 ? allelic discrimination was used in determining the presence ? or absence of 3 polymorphisms of the TPMT gene located on ? chromosome 6. Included are 3 separate PCR reactions, 3 dif- ? ferent sets of probes and primers. This test was developed ? and its performance characteristics determined by [facility] ? [employer] It has not been cleared or approved by the ? U.S. Food and Drug Administration (FDA). The FDA has deter- ? mined that such clearance or approval is not necessary. ? This test is used for clinical purposes. It should not be ? regarded as investigational or for research. This laboratory ? is certified under the Clinical Laboratory Improvement ? Amendments of 1988 (CLIA) as qualified to perform high ? complexity clinical laboratory testing. ? The homozygous recessive genotype predicts a deficient ? capacity to produce TPMT enzyme activity. TPMT enzyme act- ? ivity is essential for normal metabolism of azathioprine or ? 6-mercaptopurine (2). ? Our genotyping procedures will not distinguish between ? TPMT*1/TPMT*3A from the rare TPMT*3B/TPMT*3C which has a ? frequency of 1:120,890. This rare genotype is associated ? with low enzyme activity. Enzyme activity evaluation or ? sequencing is necessary to definitively identify this rare ? genotype. ? References: ? (1) Abdiel Ellison al., The Clinical Pharmacology of ? 6-Mercaptopurine, Journal of Clinical Pharm- ? acology, Vol.43, 1992, p 328-339. ? (2) Mahamed Calhoun., Molecular Diagnosis of Thio- ? purine S-Methyltransferase Deficiency: Genetic Basis for ? Azathioprine and Mercaptopurine Intolerance, Annals of ? Internal Medicine, Vol 126, No. 8, May 1996, p [phone]. ? Test Performed By: ??[facility] ?[employer] ?[place], [place] ??[phone] ? [facility] 03/18/2007 10:0 5 EST 03/18/2007 10:07 EST Rangel Carlson MD CHEMISTRY & BLOOD GA S ORDERABLES [facility] [address] [place] [address] * LIVER FUNCTION TESTS (03/18/2007 10:05 EST) Albumin 4.2 3.4 - 4.9 g/dl [facility] Total Protein 7.3 6.5 - 8.3 g/dl [facility] Total Alkaline Phosphatase 97 38 - 126 U/L [facility] ALT 19 9 - 52 U/L [facility] AST 23 15 - 46 U/L [facility] Unconjugated Bilirubin 0.5 0.1 - 1.1 mg/dl [facility] Conjugated Bilirubin 0.0 0.0 - 0.3 mg/dl [facility] Bilirubin, Total <0.5 0.2 - 1.3 mg/dl [facility] 03/18/2007 10:0 5 EST 03/18/2007 10:07 EST Rangel Carlson MD CHEMISTRY & BLOOD GA S ORDERABLES Performing Organization Address [facility] Co de Phone Number [facility] [address] [place] [address] * (ABNORMAL) C-REACTIVE PROTEIN (03/18/2007 10:05 EST) C-Reactive Protein 1.3(H) <1.0 mg/dl [facility] 03/18/2007 10:0 5 EST 03/18/2007 10:07 EST Rangel Carlson MD CHEMISTRY & BLOOD GA S ORDERABLES Performing Organization Address [facility] Co de Phone Number [facility] [address] [place] [address] * HEMAGRAM (03/18/2007 10:05 EST) WBC 9.67 4.0 - 12.4 K/cmm [facility] RBC 4.55 3.86 - 5.04 M/cmm [facility] Hemoglobin 15.1 11.6 - 15.2 gm/dl [facility] HCT 44.2 34.9 - 44.4 % [facility] MCV 97 81 - 98 fl [facility] MCH 33.2 26.7 - 33.3 pg [facility] MCHC 34.2 32.1 - 35.9 gm/dl [facility] PLT 293 141 - 320 K/cmm [facility] RDW-CV 13.8 11.7 - 14.6 % [facility] 03/18/2007 10:0 5 EST 03/18/2007 10:07 EST Rangel Carlson MD HEMATOLOGY & PF4 ORD ERABLES [facility] Organization Address City/State/[facility] Co de Phone Number [facility] [address] [address] documented in this encounter Visit Diagnoses Not on filedocumented in this encounter
--- OUTSIDE RECORDS SUMMARY | 2023-12-08 14:54 | XMS_ITS | Encounter Summary ---
Author Organization [facility]ly [facility] Address [facility] [place] [address] Care Team Providers Care Assembly Line Supervisor Name Role Phone Evangelista Staley MD Primary Care Provider [phone] Encounter Details Date Type Department Care Team (Late st Contact Info) Description 04/13/2016 Ancillary Procedure Radiology Library at [facility] [place] [address] Baldomero Machado MD [address] [place] [address] Social History Tobacco Use Types Packs/Day Years [...] Associated Diagnosis Comments FILM LIBRARY STORAGE ONLY DX CHEST Routine 04/13/2016 12:00 AM EST documented in this encounter Results * Film Library- Storage Only DX Chest (04/13/2016 12:00 AM EST) Narrative RAD - 10/15/2018 10:27 AM EDT This exam is auto-finalizing. It's purpose is for storage only. Baldomero Machado MD IMG FILM LIBRARY ORD ERABLES [place], [place] documented in this encounter Visit Diagnoses Not on filedocumented in this encounter Care Teams Assembly Line Supervisor Relationship Specialty Start Date End Date Evangelista Staley MD PCP - General 01/15/10 06/13/18 documented as of this encounter
--- OUTSIDE RECORDS SUMMARY | 2023-12-08 14:54 | XMS_ITS | Encounter Summary ---
Author Organization [facility] Address [address] [place] [address] Care Team Providers Care Individualized Education Plan Aide Name Role Phone John Blackmon MD Primary Care Provider [phone] Encounter Details Date Type Department Care Team (Latest Contact Info) Description 04/06/2020 Lab Requisition [facility] Pathology & Laboratory Medicine - [facility] [address] [place] [address] Genaro Cavazos, [address] [place] [phone] Encounter for general adult medical examination without abnormal findings; Encounter for screening for malignant neoplasm of cervix; Encounter for screening for human papillomavirus (HPV) Social History Tobacco Use Types Packs/Day Years [...] Procedure Name Priority Date/Time Associated Diagnosis Comments PAP TEST Today 04/05/2020 13:30 EST Encounter for general adult medical examination without abnormal findings Encounter for screening for malignant neoplasm of cervix Encounter for screening for human papillomavirus (HPV) HPV DNA DETECTION WITH GENOTYPING, PCR Today 04/05/2020 13:30 EST Encounter for general adult medical examination without abnormal findings Encounter for screening for malignant neoplasm of cervix Encounter for screening for human papillomavirus (HPV) documented in this encounter Results * (ABNORMAL) HUMAN PAPILLOMAVIRUS (HPV) DETECTION-HIGH RISK TYPES (04/05/2020 13:30 EST) HPV other High Risk types, PCR Positive( A) Negative 04/17/2020 7:56 [facility] Comment:E6 OR E7 mRNA from o ne or more types of HPV types 16,18,31,33,35,39,45,51,52,56,58,59,66, and 68 is detected by supervisor type photography mediated amplification. High and intermediate risk HPV types are associated with most squamous intraepithelial lesions and cervical cancers. Papanicolaou smear specimen (specimen) CERVIX UTERI STRUCTURE / Unknown 04/05/2020 13:30 EST 04/13/2020 9:52 EST Genaro Bonilla [facility] MICROBIOLOGY - [facility] ORDERABLES Performing Organization Address City/State/[facility] Co de Phone Number [facility] [address] [place] [address] * PAP TEST (04/05/2020 13:30 EST) Specimens A. Cervix and/or Endocervix , ThinPrep Imaging System with Manual Evaluation 04/17/2020 7:56 [facility] Specimen Adequacy Satisfactory for Evaluation - transformation zone component absent 04/17/2020 7:56 [facility] General Categorization Epithelial Cell Abnormality 04/17/2020 7:56 [facility] Descriptive Diagnosis Squamous Cell Abnormality - Atypical squamous cells, undetermined significance (ASC-US). 04/17/2020 7:56 [facility] Educational Comments [facility] recommends following ASCCP's 2012 Updated Consensus Guidelines for the Management of Abnormal Cervical Cancer Screening Tests and Cancer Precursors (JLGTD, 2013; 17(5):S1-S27). Consensus guidelines are available online at www.asccp.org. 04/17/2020 7:56 [facility] Attestation By the signature below, the attending physician certifies that they have personally conducted a gross and/or microscopic examination of the described specimens and rendered or confirmed the above diagnosis. 04/17/2020 7:56 [facility] at 0756 Clinical History See below 04/17/19 7:56 [facility] HPV The result for the Human Papillomavirus (HPV) Detection-High Risk Types is Positive . E6 OR E7 mRNA from one or more types of HPV types 16,18,31,33,35,39 ,45,51,52,56,58,5 9,66, and 68 is detected by supervisor type photography mediated amplification. High and intermediate risk HPV types are associated with most squamous intraepithelial lesions and cervical cancers. Testing was performed on specimen [id number] and was resulted on 04/17/2020 0756 EST by BRYN, LAB INSTRUMENT RESULTS IN 04/17/2020 7:56 [facility] Performing Lab [facility] 04/17/2020 7:56 [facility] Scanned Images 04/17/2020 7:56 [facility] Papanicolaou smear specimen (specimen) CERVIX UTERI STRUCTURE / Unknown 04/05/2020 13:30 EST 04/06/2020 15:46 EST Genaro Bonilla [facility] PATHOLOGY ORDERAB LES [facility] [address] [place] [address] documented in this encounter Visit Diagnoses Diagnosis Encounter for general adult medical examination without abnormal findings Unspecified general medical examination Encounter for screening for malignant neoplasm of cervix Screening for malignant neoplasm of the cervix Encounter for screening for human papillomavirus (HPV) Special screening examination for human papillomavirus (HPV) documented in this encounter Care Teams Individualized Education Plan Aide Relationship Specialty Start Date End Date John Blackmon MD PCP - General General Surgery 02/02/19 documented as of this encounter
--- OUTSIDE RECORDS SUMMARY | 2023-12-08 14:54 | XMS_ITS | Encounter Summary ---
Author Organization [facility] Address [address] [place] [address] Care Team Providers Care Motor Hotel Manager Name Role Phone Sophia Carmichael TRAINING EXECUTIVE Primary Care Provider [phone] Encounter Details Date Type Department Care Team ([facility] st Contact Info) Description 12/29/2018 Results Only [facility]- [facility] [phone] Cole Chacko, DO [address] [place] [address] Social History Tobacco Use Types [...] Date/Time Associated Diagnosis Comments SURGICAL PATHOLOGY Routine 12/29/2018 22 :40 EST documented in this encounter Results * SURGICAL PATHOLOGY (12/29/2018 22:40 EST) Pathology Report: SURGICAL PATHOLOGY REPORT Reports generated via electronic interface contain original data; however they are lacking the format of the original report. Caution should be taken when reading/interpret ing unformatted reports. Name: ? ALPA KUHN ? Accession #: ? [id number] ? : ? 1955 (Age: 63) ??F ? Collect Date: ? 12/29/2018 ? Location: ? [facility] ? Receive Date: ? 12/29/2018 ? Provider: COLE CHACKO DO Copy to: GARCIA DEJESUS DNP ? Final Pathologic Diagnosis: BREAST, LEFT, SITE NOT FURTHER SPECIFIED, NEEDLE CORE BIOPSY: - Benign breast tissue with dense hyalin interlobular fibrosis. See comment. - Minute fragment of skin. Comment: The needle core biopsy is composed of benign breast tissue. There are a few atrophic ducts entrapped within extremely dense hyalin fibrosis. There is also a small amount of adipose entrapped within the fibrosis. The appearance of the adipose and its relationship to the fibrous tissue raises the possibility that this could represent a focus of remote and resolved fat necrosis. Alternatively, this may represent nodular periductal and interlobular fibrosis. The largest measurable region of fibrosis is 5.0 mm. Clinical correlation is suggested. Dr. Aaron 12/31/2018 10:13 AM Document reviewed and electronically signed by: JEFF AARON MD Report ??Date: 12/31/2018 15:45 By the signature above, the attending physician certifies that he/she has personally conducted a gross and/or microscopic examination of the described specimens and rendered or confirmed the above diagnosis. Specimen(s) Received: Core needle bx of left breast lesion Clinical History: Left breast lesion bx Gross Description: ? Received in formalin labelled with proper patient identification (initials M, K) and left breast core needle BX are three yellow and white fibrofatty tissue cores (0.4 cm to 1.0 cm in length, and each 0.1 cm in diameter). Entirely submitted in 1. Time removed from patient: 1:20 PM 12/29/2018 Time placed in formalin: Not provided Time out of formalin: 10:30 AM 12/30/2018 GRAYSON Galeano (ASCP) 12/30/2018 9:55 AM End of Report [facility] 12/29/2018 22:4 0 EST 12/29/2018 22:40 EST Cole Chacko DO PATHOLOGY ORDERABLES [facility] [address] [place] [address] documented in this encounter Visit Diagnoses Not on filedocumented in this encounter Care Teams Motor Hotel Manager Relationship Specialty Start Date End Date Sophia Carmichael, KLAUS [address] [place] [phone] PCP - General 03/03/11 02/01/19 documented as of this encounter
--- OUTSIDE RECORDS SUMMARY | 2023-12-08 14:54 | XMS_ITS | Encounter Summary ---
Author Organization [facility] Address [address] [place] [address] Care Team Providers Care Site Administrator Name Role Phone Sophia Carmichael BAR SUPERVISOR Primary Care Provider [phone] Encounter Details Date Type Department Care Team (Late st Contact Info) Description 07/10/2015 Results Only [facility] [phone] Samira Peoples APRN [address] [place], [place] [address] Social History Tobacco Use Types Packs/Day Years [...] Name Priority Date/Time Associated Diagnosis Comments PAP TEST- RESULT ONLY Routine 07/10/2015 0:00 EDT documented in this encounter Results * PAP TEST- RESULT ONLY (07/10/2015 0:00 EDT) Pathology Report: CYTOPATHOLOGY REPORT Reports generated via electronic interface contain original data; however they are lacking the format of the original report. Caution should be taken when reading/interpreti ng unformatted reports. Name: ? ALPA KUHN ? Accession #: ? [id number] ? : ? 1955 (Age: 60) ??F ?Collect Date: ? 07/10/2015 ? Location: ? [facility] ? Receive Date: ? 07/11/2015 ? Provider: SAMIRA PEOPLES APRN Copy to: SOPHIA CARMICHAEL BAR SUPERVISOR ? Final Report SPECIMEN ADEQUACY ? Satisfactory for Evaluation - transformation zone component absent GENERAL CATEGORIZATION ? Negative for Intraepithelial Lesion or Malignancy INTERPRETATION ? Shift in froy present suggestive of bacterial vaginosis. Specimen/Source: ??Pap Test, Cervix/Endocervix, ThinPrep Imaging System with manual evaluation Document reviewed and electronically signed by: ? Joie Anthony, [place](ASCP) ? Report ??Date: 07/18/2015 13:12 HPV with Pap Test ? Date Ordered: ? 07/18/2015 ? Status: ?? Signed Out ?Date Complete: ? 07/20/2015 ? By: ??System Interface ? Date Reported: ? 07/20/2015 ? Interpretation RESULT: Negative for HPV. No E6 or E7 mRNA is detected from HPV types 16,18,31,33,35, 39,45,51,52,56,58, 59,66, and 68 by word processing machine operator mediated amplification. Comments Document reviewed and electronically signed by: ? System Interface ? Report date: 07/20/2015 By the signature above, the attending physician certifies that he/she has personally conducted a gross and/or microscopic examination of the described specimens and rendered or confirmed the above diagnosis. End of Report [facility] 07/10/2015 07/11/2015 Samira Peoples APRN PATHOLOGY ORDERABLES [facility] [address] [place] [address] documented in this encounter Visit Diagnoses Not on filedocumented in this encounter Care Teams Site Administrator Relationship Specialty Start Date End Date Sophia Carmichael, BAR SUPERVISOR [address] [place] [phone] PCP - General 03/03/11 02/01/19 documented as of this encounter
--- OUTSIDE RECORDS SUMMARY | 2023-12-08 14:54 | XMS_ITS | Encounter Summary ---
Author Organization [facility] Address [address] [place] [address] Care Team Providers Care Sewing Machine Mechanic Name Role Phone Sophia Carmichael NP Primary Care Provider [phone] John Blackmon MD Primary Care Provider [phone] Encounter Details Date Type Department Care Team (Latest Contact Info) Description 03/10/2011 Documentation Visit [facility] Gastroenterology - [address] [phone] Rangel Carlson MD Social History Tobacco Use [...] as of this encounter Progress Notes * Rangel Carlson MD - 03/11/2011 0811 EST DIVISION OF GASTROENTEROLOGY March 10, 2011 ALPA KUHN [address] [place] [address] Dear Alpa: There is active inflammation in the descending colon and rectum on the biopsies obtained during your recent colonoscopy. I would be happy to speak with you or Sophia Carmichael if I can be helpful in any way going forward. Sincerely, Electronically Signed by Rangel Carlson MD, FACG 03/11/2011 10:38 Estuardo Carlson MD, [phone] L Moses, MD, FACG - Rangel Carlson MD, FACG - LINA Job ID: SM Doc ID: [id number] Ext Doc ID: [id number] cc: Sophia Carmichael NP The Patient documented in this encounter Plan of Treatment Not on file documented as of this encounter Visit Diagnoses Not on filedocumented in this encounter Care Teams Sewing Machine Mechanic Relationship Specialty Start Date End Date Sophia Carmichael NP [address] [phone] PCP - General 03/03/11 02/01/19 John Blackmon MD [address] [phone] PCP - General General Surgery 02/02/19 documented as of this encounter
--- OUTSIDE RECORDS SUMMARY | 2023-12-08 14:54 | XMS_ITS | Encounter Summary ---
Author Organization [facility] Address [facility] [place] [address] Care Team Providers Care Pet Trainer Name Role Phone Evangelista Staley MD Primary Care Provider [phone] Encounter Details Date Type Department Care Team (Late st Contact Info) Description 11/02/2012 Ancillary Procedure Radiology Library at [facility] [place] [address] Genaro Bonilla DNP [address] [place] [id number] Social History Tobacco Use Types Packs/Day Years [...] Comments FILM LIBRARY STORAGE ONLY MAMMO Routine 11/02/2012 12:00 AM EDT documented in this encounter Results * Film Library- Storage Only Mammo (11/02/2012 12:00 AM EDT) Narrative RAD - 01/26/2019 10:26 AM EST This exam is auto-finalizing. It's purpose is for storage only. Genaro Bonilla DNP IMG FILM LIBRARY OR DERABLES [place], [place] documented in this encounter Visit Diagnoses Not on filedocumented in this encounter Care Teams Pet Trainer Relationship Specialty Start Date End Date Evangelista Staley MD PCP - General 01/15/10 06/13/18 documented as of this encounter
--- OUTSIDE RECORDS SUMMARY | 2023-12-08 14:54 | XMS_ITS | Encounter Summary ---
Author Organization [facility] Address [facility] Tamie [place] [address] Care Team Providers Care Manufacturer Agent Name Role Phone Evangelista Staley MD Primary Care Provider [phone] Encounter Details Date Type Department Care Team (Late st Contact Info) Description 07/07/2013 Ancillary Procedure Radiology Library at [facility] [place] [address] Badlomero Machado MD [address] [place] [address] Social History Tobacco Use Types [...] FILM LIBRARY STORAGE ONLY DX CHEST Routine 07/07/2013 12:00 AM EDT documented in this encounter Results * Film Library- Storage Only DX Chest (07/07/2013 12:00 AM EDT) Narrative [facility] - 10/15/2018 10:28 AM EDT This exam is auto-finalizing. It's purpose is for storage only. Baldomero Machado MD IMG FILM LIBRARY ORD ERABLES [place], [place] documented in this encounter Visit Diagnoses Not on filedocumented in this encounter Care Teams Manufacturer Agent Relationship Specialty Start Date End Date Evangelista Staley MD PCP - General 01/15/10 06/13/18 documented as of this encounter
--- OUTSIDE RECORDS SUMMARY | 2023-12-08 14:54 | XMS_ITS | Encounter Summary ---
Author Organization [facility] Address [address] [place] [address] Care Team Providers Care Recycling Collections Driver Name Role Phone John Blackmon MD Primary Care Provider [phone] Encounter Details Date Type Department Care Team ([facility] st Contact Info) Description 08/12/2019 Lab Requisition [facility] Pathology & Laboratory Medicine - [address] [phone] Outr Resulting Lab, Provider Social History Tobacco [...] Procedure Name Priority Date/Time Associated Diagnosis Comments ZZCOVID-19 TEST [facility] PCR Today 08/12/2019 15:20 EDT COVID-19 TESTING Routine 08/12/2019 15:2 0 EDT documented in this encounter Results * COVID-19 TEST [facility] PCR (08/12/2019 15:20 EDT) Swab ENTIRE NASOPHARYNX / Unknown 08/12/2019 15:20 EDT 08/12/2019 20:32 EDT Provider Outr Resulting Lab MICROBIOLOGY - GENERAL ORDERABLES [facility] [address] [place] [address] * COVID-19 TESTING (08/12/2019 15:20 EDT) COVID-19 rt-PCR Result Negative Negative 08/13/2019 0:36 EDT [facility] Comment: This test has not been FDA cleared or approved. This test has been authorized by FDA under an EUA for use by authorized laboratories. This test has been authorized only for detection of nucleic acid from 2019-nCoV, not for any other viruses or pathogens. This test is only authorized for the duration of the declaration that circumstances exist justifying the authorization of emergency use of in vitro diagnostic tests for detection and/or diagnosis of 2019-nCoV under section 564(b)(1) of Act, 21 U.S.C ?? 360bbb-3(b) (1), unless the authorization is terminated or revoked sooner. Negative results do not preclude 2019-nCoV infection and should not be used as the sole basis for treatment or other patient management decisions. Negative results must be combined with clinical observations, patient history, and epidemiological information. Performed on the SafeNet Fusion instrument Performing Lab [place] [facility] 08/13/2019 0:36 EDT [facility] Swab 08/12/2019 15:2 0 EDT 08/12/2019 20:32 EDT Provider Outr Resulting Lab MICROBIOLOGY - GENERAL ORDERABLES [facility] [address] [place] [address] documented in this encounter Visit Diagnoses Not on filedocumented in this encounter Care Teams Recycling Collections Driver Relationship Specialty Start Date End Date John Blackmon MD PCP - General General Surgery 02/02/19 documented as of this encounter
--- OUTSIDE RECORDS SUMMARY | 2023-12-08 14:54 | XMS_ITS | Encounter Summary ---
Author Organization [facility] Address [facility] [place] [address] Care Team Providers Care Biomedical Equipment Specialist Name Role Phone Unavailable Primary Care Provider Unavailabl e Encounter Details Date Type Department Care Team (Late st Contact Info) Description 06/11/2005 Ancillary Procedure Radiology Library at [facility] [place] [address] Genaro Bonilla DNP [address] [place], [place] [phone] Social History Tobacco Use Types Packs/Day Years [...] Comments FILM LIBRARY STORAGE ONLY MAMMO Routine 06/11/2005 12:00 AM EDT documented in this encounter Results * Film Library- Storage Only Mammo (06/11/2005 12:00 AM EDT) Narrative [facility] - 01/26/2019 2:03 PM EST This exam is auto-finalizing. It's purpose is for storage only. Genaro Bonilla DNP IMG FILM LIBRARY OR DERABLES [place] documented in this encounter Visit Diagnoses Not on filedocumented in this encounter
--- OUTSIDE RECORDS SUMMARY | 2023-12-08 14:54 | XMS_ITS | Encounter Summary ---
Author Organization [facility] Address [address] [place] [address] Care Team Providers Care Manager Qa Name Role Phone Sophia Carmichael SHIFT SUPERVISOR MELTING Primary Care Provider [phone] Encounter Details Date Type Department Care Team ([facility] Contact Info) Description 03/05/2011 Results Only [facility] Gastroenterology - Main [place] [address], [place] [id number] Dottie Banegas MD Social History Tobacco Use Types Packs/Day [...] Date/Time Associated Diagnosis Comments SURGICAL PATHOLOGY Routine 03/05/2011 0:00 EST documented in this encounter Results * SURGICAL PATHOLOGY (03/05/2011 0:00 EST) Pathology Report: SURGICAL PATHOLOGY REPORT Reports generated via electronic interface contain original data; however they are lacking the format of the original report. Caution should be taken when reading/interpreti ng unformatted reports. Name: ? ALPA KUHN ? Accession #: ? [id number] ? : ? 1955 (Age: 55) ??F ? Collect Date: ? 03/05/2011 ? Location: ? ENDO ? Receive Date: ? 03/05/2011 ? Provider: DOTTIE BANEGAS MD Copy to: SOPHIA CARMICHAEL SHIFT SUPERVISOR MELTING ? Final Pathologic Diagnosis: A. ?Colon, ascending, biopsy: ? 1. ??Colonic mucosa with no specific pathologic features. ??See comment. B. ?Colon, descending, biopsy: ? 1. ??Colonic mucosa with no specific pathologic features. ??See comment. ? C. ??Rectum, biopsy: ? 1. ?? Chronic mildly active proctitis. ??See comment. Comment: ? The previous lower GI biopsy series ([id number]) is reviewed in conjunction with this case with the histologic features of inflammatory bowel disease in the descending and rectum biopsies(specimens (C) and (D)) are confirmed. ??(Dr. Wilson)/[facility] Document reviewed and electronically signed by: RIVER AMADOR MD Report ??Date: 03/07/2011 16:08 By the signature above, the attending physician certifies that he/she has personally conducted a gross and/or microscopic examination of the described specimens and rendered or confirmed the above diagnosis. Specimen(s) Received: A. ?Ascending colon B. ? Descending colon C. ? Rectum Clinical History: ? Previous history and findings c/w U.C. Now on no medications for IBD. A, B. r/o colitis; C.r/o proctitis Gross Description: ? Received in formalin labelled Alpa Kuhn and bx ascending colon are two mitchell-pink irregular soft tissue fragments measuring 1.0 x 0.3 x 0.1 cm and 1.2 x 0.3 x 0.1 cm. ??The specimen is entirely submitted as (A). ?? Received in formalin labelled PriteshliYashira murguiahleen and bx descending colon are two mitchell-pink irregular soft tissue fragments measuring 0.6 x 0.2 by less than 0.1 cm and 0.8 x 0.2 x 0.2 cm. ??The specimen is entirely submitted as (B). Received in formalin labelled Mulligan Alpa and bx rectum is a mitchell-pink irregular soft tissue fragment measuring 0.6 x 0.3 x 0.1 cm. ??The specimen is entirely submitted as (C). (Sanaz Benites)/mpl End of Report [facility] 03/05/2011 03/05/2011 13: 58 EST Dottie Banegas MD PATHOLOGY ORDERABLES Performing Organization Address City/State/[facility] Co de Phone Number [facility] [address] [place] [address] documented in this encounter Visit Diagnoses Not on filedocumented in this encounter Care Teams Manager Qa Relationship Specialty Start Date End Date Sophia Carmichael NP [address] [place] [address] [phone] PCP - General 03/03/11 02/01/19 documented as of this encounter
--- OUTSIDE RECORDS SUMMARY | 2023-12-08 14:54 | XMS_ITS | Encounter Summary ---
Author Organization [facility] Address [address] [place] [address] Care Team Providers Care Customer Assistance Associate Name Role Phone Unavailable Primary Care Provider Unavailabl e Encounter Details Date Type Department Care Team (Latest Contact Info) Description 03/18/2007 8:37 EST - 03/18/2007 11:59 EST Hospital Encounter [facility] [address] [place] [address] Rangel Carlson MD Discharge Disposition: Auto Discharge Social History Tobacco Use Types Packs/Day Years Used Date Smoking Tobacco: Never Assessed Sex and Gender Information Value Date Recorded Sex Assigned at Not on file Gender Identity Not on file Sexual Orientation Not on file documented as of this encounter Discharge Disposition Disposition Code Departure Means Destination Auto Discharge documented in this encounter Plan of Treatment Not on file documented as of this encounter Visit Diagnoses Not on filedocumented in this encounter
--- OUTSIDE RECORDS SUMMARY | 2023-12-08 14:54 | XMS_ITS | Encounter Summary ---
Author Organization [facility] Address [address] [place] [address] Care Team Providers Care Latex Dipper Name Role Phone Unavailable Primary Care Provider Unavailabl e Encounter Details Date Type Department Care Team (Late st Contact Info) Description 03/18/2007 Before PRISM Converted Visit (Debord) [facility] - [facility] conversion [address] [place] [address] Rangel Carlson MD Social History Tobacco Use Types Packs/Day Years Used Date Smoking Tobacco: Never Assessed Sex and Gender Information Value Date Recorded Sex Assigned at Not on file Gender Identity Not on file Sexual Orientation Not on file documented as of this encounter Progress Notes * Rangel Carlson MD - 01/02/20092052 EST DIVISION OF GASTROENTEROLOGY March 26, 2007 MS. ALPA KUHN [address] [place] [address] Dear Alpa: It is my understanding that you are weaning your steroids more quickly than what we planned and I think that is fine as long as you continue to do well. Please keep me posted regarding your progress. Sincerely, Signed by Rangel Carlson MD, FACG 04/04/2007 12:52 Estuardo Carlson MD, [id number] L Moses, MD, FACG - Rangel Carlson MD, FACG - [place]ONIA Job ID: [id number] Doc ID: [id number] cc: Evangelista Staley MD *Patient * Rangel Carlson MD - 12/31/20082023 EST DIVISION OF GASTROENTEROLOGY March 18, 2007 Aníbal Copeland M.D. [address] [place] [address] [place] [address] Dear Michele: Thanks for sending Alpa Kuhn back to me for consultation. Alpa and I spent 30 minutes together today. Our entire visit consisted of counseling, discussion, decision making and planning a therapeutic regimen that makes sense for her in the short term and the foreseeable future. Alpa and I have spoken on a number of occasions about the importance of maintenance therapy forulcerative colitis and the natural history of the disorder, particularly without treatment. Ultimately, she knows that the success of a treatment plan is predicated on how she decides to follow it. I have written for her a seven-week taper of prednisone and restarted her oral 5-ASA medication. I will follow up with lApa by phone or e-mail unless she needs to drive to [place] for some reason. She scheduled a followup colonoscopy with me electively in April. I see no reason to re-endoscope her while her colitis is so active, but she is overdue for surveillance and that should be done in the relatively near future. Sincerely, Signed by Rangel Carlson MD, FACG 03/22/2007 18:15 Rangel Carlson MD, FACG [phone] - Rangel Carlson MD, FACG - deepthi Job ID: [id number] Doc ID: [id number] cc: MD Aníbal Zhu MD documented in this encounter Plan of Treatment Not on file documented as of this encounter Visit Diagnoses Not on filedocumented in this encounter
--- OUTSIDE RECORDS SUMMARY | 2023-12-08 14:54 | XMS_ITS | Encounter Summary ---
Author Organization [facility] Address [address] [place] [address] Care Team Providers Care Braze Operator Name Role Phone Sophia Carmichael PROFESSIONAL DEVELOPMENT INSTRUCTOR Primary Care Provider Encounter Details Date Type Department Care Team (Late st Contact Info) Description 12/21/2012 Results Only [facility] Laboratory Services - [facility] ([facility] [address] [place], [place] [address] Sophia Carmichael, PROFESSIONAL DEVELOPMENT INSTRUCTOR [address] [facility] [address] [place] [phone] Social History Tobacco Use Types Packs/Day Years [...] Diagnosis Comments PAP TEST- RESULT ONLY Routine 12/21/2012 0:00 EDT documented in this encounter Results * PAP TEST- RESULT ONLY (12/21/2012 0:00 EDT) Pathology Report: CYTOPATHOLOGY REPORT Reports generated via electronic interface contain original data; however they are lacking the format of the original report. Caution should be taken when reading/interpreti ng unformatted reports. Name: ? LILIANADAVIDALPA THOMAS ? Accession #: ? [id number] ? : ? 1955 (Age: 57) ??F ?Collect Date: ? 12/21/2012 ? Location: ? [facility] ? Receive Date: ? 12/23/2012 ? Provider: SOPHIA CARMICHAEL PROFESSIONAL DEVELOPMENT INSTRUCTOR Copy to: ? Final Report SPECIMEN ADEQUACY ? Satisfactory for Evaluation - transformation zone component present GENERAL CATEGORIZATION ? Negative for Intraepithelial Lesion or Malignancy INTERPRETATION ? Shift in froy present suggestive of bacterial vaginosis. Menstrual/Pregnanc y Status: ??Post Menopausal Previous Gynecologic Pathology: HPV: + 2011 Specimen/Source: ??Pap Test, Cervix/Endocervix, ThinPrep Imaging System with manual evaluation Document reviewed and electronically signed by: ? Colette Romero, [place](ASCP) ? Report ??Date: 12/30/2012 11:02 HPV with Pap Test ? Date Ordered: ? 12/29/2012 ? Status: ?? Signed Out ?Date Complete: ? 12/31/2012 ? By: ??System Interface ? Date Reported: ? 12/31/2012 ? Interpretation RESULT: Negative for HPV. No E6 or E7 mRNA is detected from HPV types 16,18,31,33,35, 39,45,51,52,56,58, 59,66, and 68 by mangle catcher mediated amplification. Comments Document reviewed and electronically signed by: ? System Interface ? Report date: 12/31/2012 By the signature above, the attending physician certifies that he/she has personally conducted a gross and/or microscopic examination of the described specimens and rendered or confirmed the above diagnosis. End of Report [facility] 12/21/2012 12/23/2012 Sophia Carmichael NP PATHOLOGY ORDERABLES Performing Organization Address City/State/[facility] Co de Phone Number [facility] [address] [place] [address] documented in this encounter Visit Diagnoses Not on filedocumented in this encounter Care Teams Braze Operator Relationship Specialty Start Date End Date Sophia Carmichael, KLAUS [address] [place] [phone] PCP - General 03/03/11 02/01/19 documented as of this encounter
--- OUTSIDE RECORDS SUMMARY | 2023-12-08 14:54 | XMS_ITS | Encounter Summary ---
Author Organization [facility] Address [facility] [place] [address] Care Team Providers Care Maintenance Clerk Name Role Phone Unavailable Primary Care Provider Unavailabl e Encounter Details Date Type Department Care Team (Late st Contact Info) Description 12/12/2005 12:05 AM EDT Ancillary Procedure Radiology Library at [facility] [place] [phone] Genaro Bonilla DNP [facility] [place] [id number] Social History Tobacco Use Types Packs/Day Years [...] Comments FILM LIBRARY STORAGE ONLY MAMMO Routine 12/12/2005 12:05 AM EDT documented in this encounter Results * Film Library- Storage Only Mammo (12/12/2005 12:05 AM EDT) Narrative RAD - 01/26/2019 1:59 PM EST This exam is auto-finalizing. It's purpose is for storage only. Genaro Bonilla DNP IMG FILM LIBRARY OR DERABLES [place] documented in this encounter Visit Diagnoses Not on filedocumented in this encounter
--- OUTSIDE RECORDS SUMMARY | 2023-12-08 14:54 | XMS_ITS | Encounter Summary ---
Author Organization [facility] Address [facility] [place] [address] Care Team Providers Care Paper And Pulp Mill Worker Name Role Phone Evangelista Staley MD Primary Care Provider [phone] Encounter Details Date Type Department Care Team (Late st Contact Info) Description 09/04/2018 Ancillary Procedure Radiology Library at [facility] [place] [address] Baldomero Machado MD [address] [place], [place] [id number] Social History Tobacco Use Types Packs/Day Years [...] FILM LIBRARY STORAGE ONLY DX CHEST Routine 09/04/2018 12:00 AM EDT documented in this encounter Results * Film Library- Storage Only DX Chest (09/04/2018 12:00 AM EDT) Narrative [facility] - 10/15/2018 10:26 AM EDT This exam is auto-finalizing. It's purpose is for storage only. Baldomero Machado MD IMG FILM LIBRARY ORD ERABLES [place], [place] documented in this encounter Visit Diagnoses Not on filedocumented in this encounter Care Teams Paper And Pulp Mill Worker Relationship Specialty Start Date End Date Evangelista Staley MD [address] [place] [address] PCP - General 06/14/18 11/11/18 documented as of this encounter
--- OUTSIDE RECORDS SUMMARY | 2023-12-08 14:54 | XMS_ITS | Encounter Summary ---
Author Organization [facility] Address [address] [place] [address] Care Team Providers Care Automatic Print Developer Name Role Phone John Blackmon MD Primary Care Provider [phone] Encounter Details Date Type Department Care Team (Late st Contact Info) Description 10/12/2019 Lab Requisition [facility] Pathology & Laboratory Medicine - Main [address] [id number] Outr Resulting Lab, Provider Social History Tobacco [...] Procedure Name Priority Date/Time Associated Diagnosis Comments ANCA, IFA Routine 10/12/2019 8:50 EDT documented in this encounter Results * ANCA, IFA (10/12/2019 8:50 EDT) Lab ANCA Interpretation Negative Negative 10/13/2019 15:19 EDT [facility] Comment: JONAH Positive, suggest follow-up JONAH testing if clinically indicated. Cannot rule out Atypical ANCA (A-ANCA). Results were obtained with the INOVA NOVA Lite ANCA kit by indirect immunofluorescence. Blood VENOUS BLOOD / Unknown 10/12/2019 8:50 EDT 10/12/2019 16:16 EDT Provider Outr Resulting Lab IMMUNOLOGY A ND SEROLOGY ORDERABLES [facility] [address] [place] [address] documented in this encounter Visit Diagnoses Not on filedocumented in this encounter Care Teams Automatic Print Developer Relationship Specialty Start Date End Date John Blackmon MD PCP - General General Surgery 02/02/19 documented as of this encounter
--- OUTSIDE RECORDS SUMMARY | 2023-12-08 14:54 | XMS_ITS | Encounter Summary ---
Author Organization [facility] Address [facility] [place] [address] Care Team Providers Care School Psychologist Assistant Name Role Phone IreneGenaro conn Henrysam MARTIN Primary Care Provider [phone] Reason for Referral * Diagnostic Test (Routine) - Closed Specialty Diagnoses / Procedures Referred By Contac t Referred To Contact Radiology Diagnoses Lung mass Procedures NM PET CT Skull Base to Mid-thigh Deo Pool MD [facility] [place] [address] [place] [address] Referral ID Status Reason Start Date Expiration Date V isits Requested Visits Authorized [id number] Closed Specialty Service Requested 11/12/2018 02/10/2019 1 1 * Diagnostic Test (Routine) - Closed Specialty Diagnoses / Procedures Referred By Contac t Referred To Contact Cardiology Diagnoses Lung mass Procedures Echocardiogram Transthoracic([facility]) Deo Pool MD [facility] [place] [address] [facility] [place] [address] Referral ID Status Reason Start Date Expiration Date V isits Requested Visits Authorized [id number] Closed Specialty Service Requested 11/12/2018 02/10/2019 1 1 Reason for Visit * Reason Comments Referral * Consultation (Routine) - Closed Specialty Diagnoses / Procedures Referred By Ulices buitrago Referred To Contact Pulmonology Diagnoses Lung mass lung mass Procedures consultation Baldomero Machado MD [address] [place] [address] [facility] Pulmonology [address] [place] [phone] Referral ID Status Reason Start Date Expiration Date V isits Requested Visits Authorized [id number] Closed Consult, Test & Treat 10/13/2018 10/13/2019 1 1 Encounter Details Date Type Department Care Team (Late st Contact Info) Description 11/12/2018 10:00 AM EDT Office [place] [address] Deo Pool MD [facility] [place] [address] Lung mass (Primary Dx); Iatrogenic pulmonary embolism, initial encounter; Anticoagulation management encounter; Tobacco abuse, in remission Social History Tobacco Use Types Packs/Day Years Used Date Smoking Tobacco: Former Cigarettes 0.5 40 Smokeless Tobacco: Never Sex and Gender Information Value Date Recorded Sex Assigned at Not on file Gender Identity Not on file Sexual Orientation Not on file documented as of this encounter Last Filed Vital Signs Vital Sign Reading Time Taken Comments Blood Pressure 135/70 11/12/2018 10:01 AM EDT Pulse 77 11/12/2018 10:01 AM EDT Temperature - - Respiratory Rate 16 11/12/2018 10:01 AM EDT Oxygen Saturation 94% 11/12/2018 10:01 AM EDT Inhaled Oxygen Concentration - - Weight 74.8 kg (165 lb) 11/12/2018 10:01 AM EDT Height 165.1 cm (5' 5) 11/12/2018 10:01 AM EDT Body Mass Index 27.46 11/12/2018 10:01 AM EDT documented in this encounter Progress Notes * Deo Pool MD - 11/12/2018 10:00 AM EDT Images from the original note were not included. [facility] Outpatient Consultation Date of Encounter: 11/12/2018 Referring Provider: Baldomero Machado MD [address] [place] [address] Reason for Evaluation: Genaro Bonilla APRN referred Ms. Martina Garcia to me to evaluate and manage lung infiltrate. I independently interviewed and examined the patient in the office and have reviewed available records. History of Present Illness: Mrs Kuhn is a 63 yo female that is referred to us due to presence of an unresolved RLL base infiltrate. This was initially discovered in August on a CXR when patient initially presented due to presence of cough and pleuritic chest pain. At that time she was diagnosed with CAP and started on an oral antibiotic therapy. She subsequently presented to the ED in early September with LLE swelling and worsening cough and chest tightness. At [facility], she underwent an US of her legs as well as CT PE that re demonstrated a RLL infiltrate/mass with presence of subsegmental PE's and small amount of pleural effusion. She was started on therapeutic, injectable Lovenox and referred to pulmonary medicine for further follow up. She presents to pulmonary medicine as a new patient. She states that she continues to have pleuritic chest pain. She denies any hemoptysis or hematemesis. She states that she has gained about 30 lbs in the last 2 years but adds that she has a hx of depression and anxiety. In terms of the treatment for PE's, she is tolerating Lovenox well except for minor skin bruising. She has not had any repeat imaging since September. Denies any fevers or chills. Does have some, non productive cough. Former smoker of 40 pack years. Weight gain of 30 lbs. No hx of AMI, CVA or DM. Hx of colitis Has had colonoscopies in the past Past Medical and Surgical History: Depression Anxiety Hx of Etoh abuse? Previous hx of tobacco inhalation Hx of colitis, not currently on treatment, in remission No past medical history on file. No past surgical history on file. Family History: No personal hx of cancer. Up to date on colonoscopies and did have a mammogram that was reportedly normal within the last 5 years. Social Hx; patient is . She has two sons, one of them accompanies her to the appt today. She is a former smoker of 40 pack years. She quit approximately 2 months ago. She denies any history of illicits. She does use alcohol relatively frequently although denies any withdrawal symptoms or history of seizures Social and Occupational History: Social History Socioeconomic History ??? Marital status: Spouse name: None ??? Number of children: None ??? Years of education: None ??? Highest education level: None Occupational History ??? None Social Needs ??? Financial resource strain: None ??? Food insecurity: Worry: None Inability: None ??? Transportation needs: Medical: None Non-medical: None Tobacco Use ??? Smoking status: Former Smoker Packs/day: 0.50 Years: 40.00 Pack years: 20.00 ??? Smokeless tobacco: Never Used Substance and Sexual Activity ??? Alcohol use: None ??? Drug use: None ??? Sexual activity: None Lifestyle ??? Physical activity: Days per week: None Minutes per session: None ??? Stress: None Relationships ??? Social connections: Talks on phone: None Gets together: None Attends baptism service: None Active member of club or organization: None Attends meetings of clubs or organizations: None Relationship status: None ??? Intimate partner violence: Fear of current or ex partner: None Emotionally abused: None Physically abused: None Forced sexual activity: None Other Topics Concern ??? None Social History Narrative ??? None Social narrative: Ms. Hwang lives by herself Current Medications at Start of Encounter: Outpatient Medications Prior to Visit Medication Sig Dispense Refill ??? HYDROcodone-acetaminophen 10-300 mg/15 mL Solution 1 [...] except per the HPI. Physical Examination: BP 135/70 Pulse 77 Resp 16 Ht 165.1 cm (5' 5) Wt 74.8 kg (165 lb) SpO2 94% BMI 27.46 kg/m?? AO x3, NAD, however patient appears very nervous No evidence of respiratory distress No neck masses , no lymphadenopathy Mallampati 2 CTAB no crackles auscultated S2 and S2 regular, query P2 present Abd soft, bruising noted Ext; no edema Skin no rashes Labs: I personally reviewed relevant laboratory results which were significant for: Normal renal and liver function, normal CBc Metabolic Parameters Hematologic Parameters LFT and Associated Parameters Coagulation Parameters Diabetes Laboratory Tests Autoantibodies No results for input(s): JONAH, ANATITER, NIXON, DNAABDS, DNAABDSTITER, SMANTIBODY, HISTONEAB, CANCA, PR3AB, PANCA, MYELOP, SSAROAB, SSBLAAB, CYCCITPEP, RF, SCL70, CENTSCR, F7WUUHB, JO1, MYOSITISAB in the last 7068 hours. Acute Phase Reactants No results for input(s): CRP, SEDRATE, IRON, IRONSAT, FERRITIN, FIBRINOGEN, INTERLEUKIN6, [id number], CALPROTECTIN in the last 7068 hours. Imaging: I personally reviewed imaging from presence of mass like consolidation in the RLL that persists since August of 2018, small amount of R sided pleural effusion. Some infiltrate also noted in the NICOLE CT Scan of the Chest for Pulmonary Embolism (PE) No results found for this or any previous visit. Contrast-enhanced CT Scan of the Chest No results found for this or any previous visit. High-Resolution (non-contrast) CT Scan of the Chest No results found for this or any previous visit. PA and lateral (2-view) CXR No results found for this or any previous visit. AP CXR (1-view) No results found for this or any previous visit. Echocardiogram: None available Pulmonary Function Tests: ordered Impression and Plan of Care: This is a 63 yo female with certainly high risk profile for development of primary lung malignancy due to extensive hx of smoking who presents with unprovoked PEs in a setting of an abnormal CT chest 1. CT chest- patient with an evidence of clearly abnormal CT chest however presence of multiple consolidated areas raises a question of potentially inflammatory Involvement. Although this would be the best case scenario, certainly malignancy cannot be completely ruled out, especially this patient pr esents with unprovoked bilateral PEs. Therefore, essentially to answer the question biopsy most likely will need to be achieved. To that extent I am ordering a PET/CT which will provide an interim image of the patient's chest to see if any significant change has taken place between an image a monthago and now as well as ordering a CT-guided lung biopsy from radiology. At this point in time, I amthere would like to await the results of the PET scan, which I think is reasonable prior to proceeding with any biopsies. 2. Bilateral subsegmental PEs-patient with presence of what appears to be an unprovoked PE with evidence of a DVT. She did not, according to herself undergo an echocardiogram and therefore I would like to obtain one to rule out presence of new onset pulmonary arterial hypertension with right ventricular involvement. Her blood pressure does seem to be well controlled and she does not exhibit any evidence of significant hypoxia, nor require supplemental oxygen at this time. However, this will need to be performed prior to any procedural involvement 3. Anticoagulation--patient with presence of anticoagulation with Lovenox due to suspected malignancy. At this point in time, I have asked patient to remain on Lovenox until both the PET scan as wellas the biopsy take place. Thereafter, once we have pathology results or any change that is significant radiographically, we can decide what type of oral anticoagulant therapy patient may need going forward. CT guided lung biopsy Hold Lovenox 24 hours prior ot the procedure PET/CT chest PFT TTE given known presence of PE and decreased room air oxygen Deo Pool MD, MPH [facility] PULMONOLOGY AT [facility] [phone] Dept: [phone] Loc: [phone] documented in this encounter Plan of Treatment Not on file documented as of this encounter Procedures Procedure Name Priority Date/Time Associated Diagnosis Comments SCAN, PERIPHERAL BLOOD Routine 11/12/2018 11:35 AM EDT HEMOGRAM Routine 11/12/2018 11:35 AM EDT Lung mass DIFFERENTIAL, AUTOMATED Routine 11/12/2018 11:35 AM EDT Lung mass HC CBC,PLT & AUTO DIFF Routine 11/12/2018 11:35 AM EDT Lung mass HC VENIPUNCTURE Routine 11/12/2018 11:35 AM EDT Lung mass documented in this encounter Results * Pulmonary Function Testing (11/19/2018 4:00 PM EDT) Narrative Mahin Mills Jr., MD - 11/19/2018 4:00 PM EDT Mahin Mills Jr., MD ? 11/19/2018 ??4:00 PM Pulmonary Function Testing Spirometry is normal. Diffusing capacity (corrected for hemoglobin) is normal. Oxygen saturation is normal. Mahin Mills MD Pulmonary Medicine Deo Rebolledo MD PFT ORDERABLES * ECHO COMPLETE W CONTRAST (11/19/2018 2:22 PM EDT) EF 65 HEARTLAB SYSTEM Anatomical Region Laterality Modality Other 11/19/2018 Narrative 11/19/2018 3:21 PM EDT Procedure: ?Transthoracic Echocardiogram Patient: ?MARYLOU YUEN ? (Age): 1955(63y) Med Rec#: ? [id number] ?Sex: ?F ? Site Loc: ? [facility] ?Ht / Wt: ??165(cm)/75(kg) Pt. Loc: ?Echo Lab ?BSA: ?1.82 Study Date: ?? 11/19/2018 ?Pt. Type: Outpatient Tape: ? Referring: MARI Reading: Khanh Robertson ([id number]) Community Coordinator For High School: Karla Lisa [facility] Interpreting Fellow: Bhupinder Heller ([id number]) Diagnosis: *Other nonspecific abnormal finding of lung field (R91.8) BP: ? 126/69 SUMMARY: 1. The left ventricular chamber size is normal. There is normal global left ventricular systolic function, 65% by biplane Hill's method. Left ventricular diastolic function is normal. 2. The right ventricle is normal in size and function. 3. There is no hemodynamically significant valve disease. 4. See remainder of report for additional findings. Findings ? : Study Quality: ? Technically limited Left Ventricle: ? The left ventricular chamber size is normal. ?Left ventricular wall thickness is normal. ?There is normal global left ventricular systolic function. ?The quantitative left ventricular ejection fraction by biplane Hill's method is 65%. ?There are no left ventricular segmental wall motion abnormalities. ?Left ventricular diastolic function is normal. ?Doppler assessment is consistent with normal left sided filling pressure. Left Atrium: ? The left atrium is normal in size. ?No atrial septal defect is visualized. Right Ventricle: ? The right ventricle is normal in size. ?Right ventricular global systolic function is probably normal. ?Pulmonary artery hypertension could not be assessed due to inadequate tricuspid regurgitation jet. Right Atrium: ? The right atrium is normal in size. Aortic Valve: ? The aortic valve is tricuspid. ?There is no evidence of aortic valve thickening. ?Systolic excursion of the aortic valve is normal. ?There is no evidence of aortic valve stenosis. ?There is no evidence of aortic regurgitation. Mitral Valve: ? The mitral valve leaflets appear normal. ?There is trace mitral regurgitation present. Tricuspid Valve: ? The tricuspid valve leaflets are morphologically normal. ?There is trace tricuspid regurgitation present. Pulmonic Valve: ? The pulmonic valve is not well visualized. ?There is no evidence of pulmonic regurgitation. Pericardium: ? There is no pericardial effusion. ?No pleural effusion is present. Aorta: ? The aortic root is normal in size. ?The ascending aorta is normal in size. Pulmonary Artery: ? The main pulmonary artery is not well visualized. Venous: ? The inferior vena cava appears normal in size. ?There is a greater than 50% respiratory change in the inferior vena cava dimension. Misc: ? There is no hemodynamically significant valve disease. ?See remainder of report for additional findings. ?Two-dimensional echo, spectral Doppler and color Doppler performed. ?Definity contrast (one 1.5 ml vial)was used to enhance endocardial definition. Excess contrast was discarded. Chambers 2D ?Value ?Units (Range) ? IVSd (2D) ? 0.9 ?cm ? LVPWd (2D) ?0.7 ?cm ? IVS:LVPW ratio (2D) 1.3 ?ratio ? RWT (2D) ?0.4 ?ratio ? RWT PW (2D) ? 0.4 ?ratio ? LVIDd (2D) ?4 ?cm ? LVIDs (2D) ?2.2 ?cm ? LVIDd (2D) index ?2.2 ?cm/m2 ? LVIDs (2D) index ?1.2 ?cm/m2 ? LV FS (2D) ?45 ? % ? EF Teichholz (2D) ?? 77 ? % ? Ao root diameter (2D2.8 ?cm (2.1 - 3.6) ? Ascending Ao ?3.3 ?cm (2 - 3.5) ? Volumes/Mass ?Value ?Units (Range) ? LA Area 4 CH ?12 ? cm2 (<21) ? LA ESV BP (A/L) inde15.4 ? ml/m2 ? RA AREA 4CH ? 10 ? cm2 ? LV ESV SP 4CH (MOD) 13.9 ? ml ? LV ESV SP 2CH (MOD) 12.6 ? ml ? LV EDV BP ? 37.2 ? ml ? LV ESV BP ? 13.1 ? ml ? LV EDV BP index ? 20.4 ? ml/m2 ? LV ESV BP index ? 7.2 ?ml/m2 ? BP EF (MOD) ? 65 ? % ? LV mass (2D) ?96.9 ? g ? LV mass (2D) index ??53.3 ? g/m2 ? Diastolic/Systolic Function ?Value ?Units (Range) ? MV E-wave Vmax ?0.6 ?m/sec ? MV deceleration [id number] ?msec ? MV A-wave Vmax ?0.7 ?m/sec ? MV E:A ratio ?0.8 ?ratio ? LV septal e' Vmax ?? 0.1 ?m/sec ? LV lateral e' Vmax ??0.1 ?m/sec ? LV average e' Vmax ??0.1 ?m/sec ? LV E:e' septal ratio7.6 ?ratio ? LV E:e' lateral rati5.5 ?ratio ? LV average E:e' rati6.1 ?ratio ? Wall Motion: Segment Name ?Rest ? Base-Anteroseptal ?? Normal ? Base-Anterior ? Normal ? Base-Anterolateral ??Normal ? Base-Posterolateral Normal ? Base-Inferior ? Normal ? Base-Inferoseptal ?? Normal ? Mid-Anteroseptal ?Normal ? Mid-Anterior ?Normal ? Mid-Anterolateral ?? Normal ? Mid-Posterolateral ??Normal ? Mid-Inferior ?Normal ? Mid-Inferoseptal ?Normal ? Martin-Septal ? Normal ? Martin-Anterior ? Normal ? Martin-Lateral ?Normal ? Martin-Inferior ? Normal ? Martin-Tip ?Normal ? This report has been electronically signed by: Khanh Robertson M.D. ? 11/19/2018 15:20:37 Images reviewed and interpretation verified [facility] Procedure Note Khanh Robertson MD - 11/19/2018 Procedure: Transthoracic Echocardiogram Patient: MARYLOU KINGSTON(Age): 1955(63y) Med Rec#: [id number] Sex: F Site Loc: [facility] Ht / Wt: 165(cm)/75(kg) Pt. Loc: Echo Lab BSA: 1.82 Study Date: 11/19/2018 Pt. Type: Outpatient Tape: Referring: MARI Reading: Khanh Robertson ([id number]) Community Coordinator For High School: Karla Lisa [facility] Interpreting Fellow: Bhupinder Heller ([id number]) Diagnosis: *Other nonspecific abnormal finding of lung field (R91.8) BP: 126/69 SUMMARY: 1. The left ventricular chamber size is normal. There is normal global left ventricular systolic function, 65% by biplane Hill's method. Left ventricular diastolic function is normal. 2. The right ventricle is normal in size and function. 3. There is no hemodynamically significant valve disease. 4. See remainder of report for additional findings. Findings : Study Quality: Technically limited Left Ventricle: The left ventricular chamber size is normal. Left ventricular wall thickness is normal. There is normal global left ventricular systolic function. The quantitative left ventricular ejection fraction by biplane Hill's method is 65%. There are no left ventricular segmental wall motion abnormalities. Left ventricular diastolic function is normal. Doppler assessment is consistent with normal left sided filling pressure. Left Atrium: The left atrium is normal in size. No atrial septal defect is visualized. Right Ventricle: The right ventricle is normal in size. Right ventricular global systolic function is probably normal. Pulmonary artery hypertension could not be assessed due to inadequate tricuspid regurgitation jet. Right Atrium: The right atrium is normal in size. Aortic Valve: The aortic valve is tricuspid. There is no evidence of aortic valve thickening. Systolic excursion of the aortic valve is normal. There is no evidence of aortic valve stenosis. There is no evidence of aortic regurgitation. Mitral Valve: The mitral valve leaflets appear normal. There is trace mitral regurgitation present. Tricuspid Valve: The tricuspid valve leaflets are morphologically normal. There is trace tricuspid regurgitation present. Pulmonic Valve: The pulmonic valve is not well visualized. There is no evidence of pulmonic regurgitation. Pericardium: There is no pericardial effusion. No pleural effusion is present. Aorta: The aortic root is normal in size. The ascending aorta is normal in size. Pulmonary Artery: The main pulmonary artery is not well visualized. Venous: The inferior vena cava appears normal in size. There is a greater than 50% respiratory change in the inferior vena cava dimension. Misc: There is no hemodynamically significant valve disease. See remainder of report for additional findings. Two-dimensional echo, spectral Doppler and color Doppler performed. Definity contrast (one 1.5 ml vial)was used to enhance endocardial definition. Excess contrast was discarded. Chambers 2D Value Units (Range) IVSd (2D) 0.9 cm LVPWd (2D) 0.7 cm IVS:LVPW ratio (2D) 1.3 ratio RWT (2D) 0.4 ratio RWT PW (2D) 0.4 ratio LVIDd (2D) 4 cm LVIDs (2D) 2.2 cm LVIDd (2D) index 2.2 cm/m2 LVIDs (2D) index 1.2 cm/m2 LV FS (2D) 45 % EF Teichholz (2D) 77 % Ao root diameter (2D2.8 cm (2.1 - 3.6) Ascending Ao 3.3 cm (2 - 3.5) Volumes/Mass Value Units (Range) LA Area 4 CH 12 cm2 (<21) LA ESV BP (A/L) inde15.4 ml/m2 RA AREA 4CH 10 cm2 LV ESV SP 4CH (MOD) 13.9 ml LV ESV SP 2CH (MOD) 12.6 ml LV EDV BP 37.2 ml LV ESV BP 13.1 ml LV EDV BP index 20.4 ml/m2 LV ESV BP index 7.2 ml/m2 BP EF (MOD) 65 % LV mass (2D) 96.9 g LV mass (2D) index 53.3 g/m2 Diastolic/Systolic Function Value Units (Range) MV E-wave Vmax 0.6 m/sec MV deceleration izbf089.8 msec MV A-wave Vmax 0.7 m/sec MV E:A ratio 0.8 ratio LV septal e' Vmax 0.1 m/sec LV lateral e' Vmax 0.1 m/sec LV average e' Vmax 0.1 m/sec LV E:e' septal ratio7.6 ratio LV E:e' lateral rati5.5 ratio LV average E:e' rati6.1 ratio Wall Motion: Segment Name Rest Base-Anteroseptal Normal Base-Anterior Normal Base-Anterolateral Normal Base-Posterolateral Normal Base-Inferior Normal Base-Inferoseptal Normal Mid-Anteroseptal Normal Mid-Anterior Normal Mid-Anterolateral Normal Mid-Posterolateral Normal Mid-Inferior Normal Mid-Inferoseptal Normal Martin-Septal Normal Martin-Anterior Normal Martin-Lateral Normal Martin-Inferior Normal Martin-Tip Normal This report has been electronically signed by: Khanh Robertson M.D. 11/19/2018 15:20:37 Images reviewed and interpretation verified [facility] Deo Rebolledo MD ECHO ORDERABLES * (ABNORMAL) NM PET CT Skull Base to Mid-thigh (11/19/2018 8:46 AM EDT) Anatomical Region Laterality Modality Positron Emissio n Tomography (PET) Impressions 11/19/2018 11:54 AM EDT 1. ??Peripherally FDG avid 6 cm right lower lobe consolidation, indeterminate finding. This is favored to represent a benign etiology such as a pulmonary infarct given the recent prior embolism, or other inflammatory process such as organizing pneumonia, however a cavitary primary pulmonary malignancy cannot be excluded. 2. ??Ill-defined FDG avid 1.4 cm nodular consolidation in the anterior left upper lobe, with an appearance more suggestive of an inflammatory etiology. 3. ??FDG avid subcentimeter lymph nodes in the right hilar and right lower paratracheal, nonspecific and may be inflammatory related to the right lower lobe process. 4. ??Unexpected Finding. Mildly FDG avid left breast upper-outer quadrant 1.2 cm soft tissue density. 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 I have personally reviewed the image(s) and the residents interpretation and agree with the findings, Spencer Cardoza at 11/19/2018 11:54 AM Thank you for letting us participate in the care of this patient. For questions regarding this report, please contact the number below. ? Narrative 11/19/2018 11:54 AM EDT EXAMINATION: NM PET CT SKULL BASE TO MID-THIGH ? CLINICAL HISTORY: RLL lung mass TECHNIQUE: Following IV injection of 80-bcqfan-2-deoxyglucose (FDG) a standard uptake of approximately 60 minutes, a noncontrast CT scan followed by a PET scan were acquired from the base of the skull to mid thighs. The noncontrast CT was used for anatomic localization and photon attenuation correction of the PET scan. Blood glucose level: 91 (mg/dL) FDG dose: 11 mCi COMPARISON: Chest CT 10/07/2018 FINDINGS: HEAD/NECK: Mildly FDG avid small bilateral cervical lymph nodes, most likely reactive. Normal activity in all remaining soft tissue regions of the neck and visualized lower head. Non-FDG avid mucosal thickening and air-fluid level in the right maxillary sinus. CHEST: Peripherally FDG avid right posterior lower lobe consolidation, which has decreased in size compared to CT 10/07/2018, now measuring 4.7 x 2.4 x 5.8 cm, from previously 7.3 x 3.2 x 6.0 cm. Additional ill-defined FDG avid nodular consolidation in the anterior left upper lobe (axial image 68), which has slightly decreased in size compared to the prior CT, now measuring 1.4 x 0.7 cm, from previously 1.6 x 1.0 cm. Small FDG avid right hilar adenopathy and small cluster of FDG avid right lower paratracheal lymph nodes, which appear to have decreased in size compared to the prior CT (axial image 57). Small FDG avid bilateral axillary lymph nodes with a benign CT appearance, consistent with benign reactive lymph nodes. Mildly FDG avid soft tissue density in the upper outer left breast, which measures 1.2 x 1.1 cm (axial image 69). ABDOMEN/PELVIS: Multiple small FDG avid subcutaneous nodules with scattered foci of air in the anterior abdominal wall consistent with injection sites. Normal activity in all remaining soft tissue regions. SKELETON/EXTREMITIES: Focal FDG activity adjacent to a lower cervical spine spinous process, consistent with muscle/ligamentous inflammation. Normal activity in all remaining regions of the axial and visualized appendicular skeleton. Unchanged T12 compression deformity with approximately 50% height loss and no significant retropulsion of fracture fragments. Resulting Agency Comment Unexpected Finding Deo Rebolledo MD IMG PET ORDERABLE S * Scan, Peripheral Blood (11/12/2018 11:35 AM EDT) Pathologist [facility] Plat estimate Normal [facility] RBC Morphology Abnormal [facility] Macrocyte 6-10 /HPF [facility] Blood specimen (specimen) 11/12/2018 11:35 AM EDT 11/12/2018 11:49 AM EDT Narrative Resulting Agency Comment Spec In Lab Deo Rebolledo MD HEMATOLOGY ORDERA BLES [facility] [place] [address] * Differential, Automated (11/12/2018 11:35 AM EDT) Pathologist [facility] Neutrophil % 60.7 % [facility] Neutrophil Absolute 3.05 1.70 - 6.10 x10(3)/[facility] Lymph % 29.3 % [facility] Lymphocytes Abs 1.5 0.9 - 3.2 x10(3)/[facility] Monocyte % 8.2 % [facility] Monocyte Abs 0.4 0.3 - 0.9 x10(3)/[facility] Eos % 0.6 % [facility] Eosinophils Abs 0.0 0.0 - 0.4 x10(3)/[facility] Basophil % 0.8 % [facility] Baso Absolute 0.0 0.0 - 0.1 x10(3)/[facility] Immature Gran % 0.40 % [facility] Comment: Immature granulocytes(IG's)percentage and absolute count will include metamyelocytes, myelocytes, and promyelocytes. Blood smears from CBCs yielding IG's will be scanned manually for concordance. If this scan disagrees with the automated IG or if promyelocytes are noted, a manual differential will be performed. Immature Gran Absolute 0.02 0.00 - 0.04 x10(3)/[facility] Blood specimen (specimen) 11/12/2018 11:35 AM EDT 11/12/2018 11:49 AM EDT Narrative Resulting Agency Comment Spec In Lab Deo Rebolledo MD HEMATOLOGY ORDERA BLES [facility] [place] [address] * (ABNORMAL) Hemogram (11/12/2018 11:35 AM EDT) White Blood Cell 5.0 4.0 - 9.5 x10(3)/ L [facility] Red Blood Cell 4.71 4.00 - 5.21 x10(6)/[facility] Hemoglobin 16.9(H) 11.7 - 15.5 gm/dL [facility] Hematocrit 51.6(H) 35.7 - 45.8 % [facility] Mean Cell Volume 109.6(H) 82.6 - 94.4 fL [facility] Mean Cell Hemoglobin 35.9(H) 27.1 - 32.0 pg [facility] Mean Cell Hemoglobin Concentration 32.8 31.7 - 35.0 gm/dL [facility] Platelet 325 145 - 357 x10(3)/mc L [facility] RDW Standard Deviation 64.8(H) 37.0 - 46.0 fL [facility] RDW coefficient of variation 15.7(H) 11.5 - 14.1 % [facility] Mean Platelet Volume 9.3 7.6 - 12.9 [facility] NRBC% auto 0.0 % [facility] NRBC Absolute 0.000 0.000 - 0.000 x10(3)/mc L [facility] Blood specimen (specimen) 11/12/2018 11:35 AM EDT 11/12/2018 11:49 AM EDT Narrative Resulting Agency Comment Spec In Lab Deo Rebolledo MD HEMATOLOGY ORDERA BLES [facility] [place] [address] * Comprehensive metabolic panel (non-fasting) (11/12/2018 11:35 AM EDT) Glucose 102 65 - 199 mg/dL [facility] Comment:Diabetes: >=200 mg/d L plus symptoms Blood Urea Nitrogen 8 8 - 18 mg/dL [facility] Creatinine 0.71 0.70 - 1.20 mg/dL [facility] Sodium 141 135 - 145 mmol/L [facility] Potassium 4.5 3.5 - 5.0 mmol/L [facility] Comment: Please note: ??Patients with WBC >100,000 may have falsely elevated Potassium levels. ??For accurate Potassium quantification in these patients send serum separator tube (gold top) for subsequent determinations. ??Contact the Clinical Chemistry Laboratory if there are any questions. Chloride 104 98 - 107 mmol/L [facility] Carbon Dioxide 22 22 - 31 mmol/L [facility] Anion Gap 15 5 - 15 mmol/L [facility] Calcium 9.3 8.5 - 10.5 mg/dL [facility] Protein, Total 7.4 6.1 - 8.0 gm/dL [facility] Albumin 4.3 3.2 - 5.2 gm/dL [facility] Aspartate Aminotransferase 26 0 - 30 unit/L [facility] Alanine Aminotransferase 22 0 - 30 unit/L [facility] Alkaline Phosphatase 77 35 - 105 unit/L [facility] Bilirubin, Total 0.4 0.2 - 1.3 mg/dL [facility] Est Glomerular Filtration Rate 92 >=60 mL/min/1. 73 m?? [facility] Comment: The eGFR was calculated using the CKD-EPI equation. As with all creatinine based estimates of kidney function, eGFR values calculated with the CKD-EPI equation are not accurate in patients with acute kidney failure, extremes of body mass or the acutely ill. http://[employer]/DHnkf eGFR 107 >=60 mL/min/1. 73 m?? [facility] Comment: The eGFR was calculated using the CKD-EPI equation. As with all creatinine based estimates of kidney function, eGFR values calculated with the CKD-EPI equation are not accurate in patients with acute kidney failure, extremes of body mass or the acutely ill. [email or web address]://[employer]/DHnkf Blood specimen (specimen) 11/12/2018 11:35 AM EDT 11/12/2018 11:49 AM EDT Narrative Resulting Agency Comment Spec In Lab Deo Rebolledo MD CHEMISTRY ORDERAB LES [facility] [place] [address] documented in this encounter Visit Diagnoses Diagnosis Lung mass- Primary Swelling, mass, or lump in chest Iatrogenic pulmonary embolism, initial encounter Anticoagulation management encounter Encounter for therapeutic drug monitoring Tobacco abuse, in remission Personal history of tobacco use, presenting hazards to health Lung mass Swelling, mass, or lump in chest Lung mass Swelling, mass, or lump in chest Lung mass Swelling, mass, or lump in chest documented in this encounter Care Teams School Psychologist Assistant Relationship Specialty Start Date End Date Genaro Bonilla DNP PCP - General Family Medicine 11/12/18 10/03/20 documented as of this encounter
--- OUTSIDE RECORDS SUMMARY | 2023-12-08 14:54 | XMS_ITS | Encounter Summary ---
[facility] Organization [facility] [place] [address] Care Team Providers Care Web Page Designer Name Role Phone Genaro Bonilla DNP Primary Care Provider Reason for Referral * Diagnostic Test (Routine) - Closed Specialty Diagnoses / Procedures Referred By Contac t Referred To Contact Radiology Diagnoses Lung mass Procedures NM PET CT Skull Base to Mid-thigh Deo Pool MD [facility] [place] [address] [place] [address] Referral ID Status Reason Start Date Expiration Date V isits Requested Visits Authorized [id number] Closed Specialty Service Requested 11/12/2018 02/10/2019 1 1 Reason for Visit * Diagnostic Test (Routine) - Closed Specialty Diagnoses / Procedures Referred By Contac t Referred To Contact Radiology Diagnoses Lung mass Procedures NM PET CT Skull Base to Mid-thigh Deo Pool MD [facility] [place] [address] [place] [address] Referral ID Status Reason Start Date Expiration Date V isits Requested Visits Authorized [id number] Closed Specialty Service Requested 11/12/2018 02/10/2019 1 1 Encounter Details Date Type Department Care Team (Latest Contact Info) Description 11/19/2018 7:25 AM EDT - 11/19/2018 7:26 AM EDT Hospital Encounter Nuclear Medicine at [facility] [place] [id number] Deo Pool MD [facility] [address] [place], [place] [address] Lung mass Discharge Disposition: Home Social History [...] Routine 11/19/2018 8:46 AM EDT Lung mass documented in this encounter Results * (ABNORMAL) NM PET CT Skull Base [...] lung mass TECHNIQUE: Following IV injection of 27-craosm-8-deoxyglucose (FDG) a standard uptake of approximately 60 [...] Deo Rebolledo MD IMG PET ORDERABLE S documented in this encounter Visit Diagnoses Diagnosis Lung mass Swelling, mass, or lump in chest documented in this encounter Administered Medications Inactive Administered Medications - up to 3 most recent administrations Medication Order MAR Action Action Date Dose Rate Site fludeoxyglucose (F-18) FDG injection 11 mCi 11 mCi, Intravenous, ONCE PRN, 1 dose, Starting on Thu11/19/18 at 0740, Until Thu11/19/18 at 0737, Per Protocol, Routine Given 11/19/2018 7:37 AM EDT 11 mCi documented in this encounter Care Teams Web Page Designer Relationship Specialty Start Date End Date Genaro Bonilla DNP PCP - General Family Medicine 11/12/18 10/03/20 documented as of this encounter
--- OUTSIDE RECORDS SUMMARY | 2023-12-08 14:54 | XMS_ITS | Encounter Summary ---
Author Organization [facility] Address [address] [place] [address] Care Team Providers Care Bus Girl Name Role Phone John Blackmon MD Primary Care Provider [phone] Encounter Details Date Type Department Care Team (Late st Contact Info) Description 05/18/2020 Lab Requisition [facility] Pathology & Laboratory Medicine - [address] [address] Delmy Walls MD [address] [place] [address], [address] [place] [address] Encounter for other general examination Social History Tobacco Use Types Packs/Day Years [...] Priority Date/Time Associated Diagnosis Comments SURGICAL PATHOLOGY Today 05/18/2020 9: 17 EDT Encounter for other general examination documented in this encounter Results * SURGICAL PATHOLOGY (05/18/2020 9:17 EDT) Final Diagnosis A. ENDOCERVIX, CURETTAGE: - Scant degenerative squamous cell; not further diagnostic. 05/22/2020 10:43 EDT [facility] Diagnosis Comment Deeper sections have been examined of the block. Extremely rare degenerative squamous cells are seen; there is not evaluable endocervical glands/tissue present. 05/22/2020 10:43 [facility] Attestation By the signature below, the attending physician certifies that they have 1) personally conducted a gross and/or microscopic examination of the described specimen(s), and/or personally interpreted the results of laboratory testing of the described specimen(s), and 2) personally rendered or confirmed the above diagnosis. 05/22/2020 10:43 [facility] at 1043 Clinical History ASCUS, (+) HPV on Pap 03/2020; (no history) 05/22/2020 10:43 [facility] Gross Description A. Received in formalin labelled with proper patient identification (initials M, K) and endocervical is an aggregate of a scant amount of white soft tissue (less than 0.1 by less than 0.1 by less than 0.1 cm). Entirely submitted in A1. Jorge Weaver 05/19/2020 7:29 05/22/2020 10:43 [facility] Performing Lab [facility] 05/22/2020 10:43 [facility] Scanned Images 05/22/2020 10:43 [facility] Tissue ENTIRE ENDOCERVIX / Unknown 05/18/2020 9:17 EDT 05/18/2020 16:31 EDT Delmy Walls MD PATHOLOGY ORDERAB LES [facility] [address] [place] [address] documented in this encounter Visit Diagnoses Diagnosis Encounter for other general examination documented in this encounter Care Teams Bus Girl Relationship Specialty Start Date End Date John Blackmon MD PCP - General General Surgery 02/02/19 documented as of this encounter
--- OUTSIDE RECORDS SUMMARY | 2023-12-08 14:54 | XMS_ITS | Encounter Summary ---
Author Organization [facility] Address [facility] [place] [address] Care Team Providers Care Barrel Bander Name Role Phone Evangelista Staley MD Primary Care Provider [phone] Encounter Details Date Type Department Care Team (Late st Contact Info) Description 09/07/2018 Ancillary Procedure Radiology Library [place] [facility] [place] [address] Baldomero Machado MD [address] [place], [place] [id number] Social History Tobacco Use Types Packs/Day Years [...] FILM LIBRARY STORAGE ONLY DX CHEST Routine 09/07/2018 12:00 AM EDT documented in this encounter Results * Film Library- Storage Only DX Chest (09/07/2018 12:00 AM EDT) Narrative [facility] - 10/15/2018 10:24 AM EDT This exam is auto-finalizing. It's purpose is for storage only. Baldomero Machado MD IMG FILM LIBRARY ORD ERABLES [place], [place] documented in this encounter Visit Diagnoses Not on filedocumented in this encounter Care Teams Barrel Bander Relationship Specialty Start Date End Date Evangelista Staley MD [address] [place] [address] PCP - General 06/14/18 11/11/18 documented as of this encounter
--- OUTSIDE RECORDS SUMMARY | 2023-12-08 14:54 | XMS_ITS | Encounter Summary ---
Author Organization [facility] Address [address] [place] [address] Care Team Providers Care Advertising Coordinator Name Role Phone Sophia Carmichael KAI WHAKARURUHAU Primary Care Provider Encounter Details Date Type Department Care Team (Late st Contact Info) Description 05/14/2011 Results Only [facility] Services - [facility] [address] [place], [place] [address] Sophia Carmichael, KAI WHAKARURUHAU [address] [facility] [address] [place] [address] Social History Tobacco Use Types [...] Diagnosis Comments PAP TEST- RESULT ONLY Routine 05/14/2011 0:00 EDT documented in this encounter Results * PAP TEST- RESULT ONLY (05/14/2011 0:00 EDT) Pathology Report: CYTOPATHOLOGY REPORT Reports generated via electronic interface contain original data; however they are lacking the format of the original report. Caution should be taken when reading/interpreti ng unformatted reports. Name: ? LEIWILLIAM ALPA ? Accession #: ? [id number] ? : ? 1955 (Age: 56) ??F ?Collect Date: ? 05/14/2011 ? Location: ? [facility] ? Receive Date: ? 05/16/2011 ? Provider: SOPHIA CARMICHAEL NP Copy to: ? Final Report SPECIMEN ADEQUACY ? Satisfactory for Evaluation - transformation zone component present GENERAL CATEGORIZATION ? Negative for Intraepithelial Lesion or Malignancy INTERPRETATION ? Reactive cellular changes associated with inflammation present (includes repair). Shift in froy present suggestive of bacterial vaginosis. Last Menstural Period: 1 1/2 yrs ago Previous Gynecologic Pathology: Yes: Abnormal pap x 1 30 yrs ago Specimen/Source: ??Pap Test, Cervix/Endocervix, ThinPrep Imaging System with manual evaluation Document reviewed and electronically signed by: ? TUAN SHANE MD ? Report ??Date: 05/21/2011 15:40 HPV with Pap Test ? Date Ordered: ? 05/21/2011 ? Status: ?? Signed Out ?Date Complete: ? 05/26/2011 ? By: ??System Interface ? Date Reported: ? 05/26/2011 ? Interpretation RESULT: Positive for one or more of HPV types 16,18,31,33,35,39, 45, 51,52,56,58,59, or 68. These high/intermediate risk HPV types are associated with some squamous intraepithelial lesions and cervical cancers. Comments Document reviewed and electronically signed by: ? System Interface ? Report date: 05/26/2011 By the signature above, the attending physician certifies that he/she has personally conducted a gross and/or microscopic examination of the described specimens and rendered or confirmed the above diagnosis. End of Report LAW KENNEDY 05/14/2011 05/16/2011 Sophia Carmichael NP PATHOLOGY ORDERABLES Performing Organization Address City/State/[facility] Co de Phone Number [facility] [address] [place] [address] documented in this encounter Visit Diagnoses Not on filedocumented in this encounter Care Teams Advertising Coordinator Relationship Specialty Start Date End Date Sophia Carmichael NP [address] [place] [phone] PCP - General 03/03/11 02/01/19 documented as of this encounter
--- OUTSIDE RECORDS SUMMARY | 2023-12-08 14:54 | XMS_ITS | Encounter Summary ---
Author Organization [facility] Address [address] [place] [address] Care Team Providers Care Box Annealer Name Role Phone John Blackmon MD Primary Care Provider [phone] Encounter Details Date Type Department Care Team (Late st Contact Info) Description 06/22/2020 Lab Requisition [facility] Pathology & Laboratory Medicine - [address] [id number] Delmy Walls MD [address] [place] [address], [address] [place] [phone] Encounter for other general examination Social History [...] Date/Time Associated Diagnosis Comments SURGICAL PATHOLOGY Today 06/22/2020 9: 38 EDT Encounter for other general examination documented in this encounter Results * SURGICAL PATHOLOGY (06/22/2020 9:38 EDT) Final Diagnosis A. ENDOCERVIX, CURETTAGE: - Fragments of superficial degenerative squamous epithelium. See comment. 06/26/2020 11:39 [facility] Diagnosis Comment The curettage specimen consists of degenerative superficial squamous epithelial cells. Extremely scant (3) benign endocervical cells are seen. Cotton Ball Machine Tender slides of this case were reviewed at the intradepartmental consultation conference. 06/26/2020 11:39 [facility] Attestation There was significant resident/fellow involvement in the diagnostic evaluation of this case. By the signature below, the attending physician certifies that they have personally conducted a gross and/or microscopic examination of the described specimens and rendered or confirmed the above diagnosis. 06/26/2020 11:39 [facility] at 1139 Clinical History ASCUS, HPV positive 06/26/2020 11:39 [facility] Gross Description A. Received in formalin labelled with proper patient identification (initials M, K) and ECC is a scant amount of cloudy tissue (0.3 x 0.1 by less than 0.1 cm). The specimen is filtered and submitted in A1. GRAYSON VALLEJO(ASCP) 06/22/2020 16:08 06/26/2020 11:39 [facility] Resident/Fell ow: Pardeep Carlson MD 06/26/2020 11:39 [facility] Performing Lab [facility] 06/26/2020 11:39 [facility] Scanned Images 06/26/2020 11:39 [facility] Tissue ENTIRE ENDOCERVIX / Unknown 06/22/2020 9:38 EDT 06/22/2020 15:48 EDT Delmy Walls MD PATHOLOGY ORDERAB LES [facility] [address] [place] [address] documented in this encounter Visit Diagnoses Diagnosis Encounter for other general examination documented in this encounter Care Teams Box Annealer Relationship Specialty Start Date End Date John Blackmon MD PCP - General General Surgery 02/02/19 documented as of this encounter
--- OUTSIDE RECORDS SUMMARY | 2023-12-08 14:54 | XMS_ITS | Encounter Summary ---
Author Organization [facility] Address [facility] [place] [address] Care Team Providers Care Dental Technologist Name Role Phone IreneGenaro conn Henrysam MARTIN Primary Care Provider Reason for Referral * Diagnostic Test (Routine) - Closed Specialty Diagnoses / Procedures Referred By Contac t Referred To Contact Cardiology Diagnoses Lung mass Procedures Echocardiogram Transthoracic([facility]) Deo Pool MD [facility] [place] [address] [facility] [place] [address] Referral ID Status Reason Start Date Expiration Date V isits Requested Visits Authorized [id number] Closed Specialty Service Requested 11/12/2018 02/10/2019 1 1 Reason for Visit * Diagnostic Test (Routine) - Closed Specialty Diagnoses / Procedures Referred By Contac t Referred To Contact Cardiology Diagnoses Lung mass Procedures Echocardiogram Transthoracic([facility]) Deo Pool MD [facility] [place] [address] [facility] [place] [address] Referral ID Status Reason Start Date Expiration Date V isits Requested Visits Authorized [id number] Closed Specialty Service Requested 11/12/2018 02/10/2019 1 1 Encounter Details Date Type Department Care Team (Latest Contact Info) Description 11/19/2018 12:11 PM EDT - 11/19/2018 11:59 PM EDT Hospital Encounter Non-Invasive Cardiology Lab [facility] [place] [address] Deo Pool MD [facility] [place] [address] Lung mass Discharge Disposition: Home Social History [...] 09/08/2018 11/08/2019 predniSONE (DELTASONE) 20 mg Tablet Take 40 mg by mouth x 7 days, then 30 mg by mouth x 7 days, then 20 mg by mouth x 7 days, then 10 mg by mouth x 7 days, then stop 35 tablet 11/19/2018 11/23/2018 HYDROcodone-acetaminoph en 10-300 mg/15 mL Solution 1 [...] Procedure Name Priority Date/Time Associated Diagnosis Comments ECHO COMPLETE W CONTRAST Routine 11/19/2018 2:22 PM EDT Lung mass documented in this encounter Results * ECHO COMPLETE W CONTRAST (11/19/2018 2:22 PM EDT) EF 65 HEARTLAB SYSTEM Anatomical Region Laterality Modality Other 11/19/2018 Narrative 11/19/2018 3:21 PM EDT Procedure: ?Transthoracic Echocardiogram Patient: ?MARYLOU ALPA ? (Age): 1955(63y) Med Rec#: ? [id number] ?Sex: ?F ? Site Loc: ? [facility] ?Ht / Wt: ??165(cm)/75(kg) Pt. Loc: ?Echo Lab ?BSA: ?1.82 Study Date: ?? 11/19/2018 ?Pt. Type: Outpatient Tape: ? Referring: MARI Reading: Khanh Robertson ([id number]) It Account Manager: Karla Lisa [facility] Interpreting Fellow: Bhupinder Heller ([id number]) Diagnosis: *Other nonspecific abnormal finding of lung [...] E-wave Vmax ?0.6 ?m/sec ? MV deceleration oooe393.8 ?msec ? MV A-wave Vmax ?0.7 ?m/sec [...] ? Mid-Inferior ?Normal ? Mid-Inferoseptal ?Normal ? Holland-Septal ? Normal ? Holland-Anterior ? Normal ? Holland-Lateral ?Normal ? Holland-Inferior ? Normal ? Holland-Tip ?Normal ? This report has been electronically signed by: Khanh Robertson M.D. ? 11/19/2018 15:20:37 Images reviewed and interpretation verified [facility] Cardiac Ultrasound Laboratory Procedure Note Khanh Robertson MD - 11/19/2018 Procedure: Transthoracic Echocardiogram Patient: MARYLOU KINGSTON(Age): 1955(63y) Med Rec#: [id number] Sex: F Site Loc: [facility] Ht / Wt: 165(cm)/75(kg) Pt. Loc: Echo Lab BSA: 1.82 Study Date: 11/19/2018 Pt. Type: Outpatient Tape: Referring: MARI Reading: Khanh Robertson ([id number]) It Account Manager: Karla Lisa [facility] [place] Interpreting Fellow: Bhupinder Heller ([id number]) Diagnosis: *Other nonspecific abnormal finding of lung [...] MV E-wave Vmax 0.6 m/sec MV deceleration mynn417.8 msec MV A-wave Vmax 0.7 m/sec MV [...] Normal Mid-Posterolateral Normal Mid-Inferior Normal Mid-Inferoseptal Normal Holland-Septal Normal Holland-Anterior Normal Holland-Lateral Normal Holland-Inferior Normal Holland-Tip Normal This report has been electronically signed by: Khanh Robertson M.D. 11/19/2018 15:20:37 Images reviewed and interpretation verified [facility] Cardiac Ultrasound Laboratory Deo Rebolledo MD ECHO ORDERABLES documented in this encounter Visit Diagnoses Diagnosis Lung mass Swelling, mass, or lump in chest documented in this encounter Administered Medications Inactive Administered Medications - up to 3 most recent administrations Medication Order MAR Action Action Date Dose Rate Site perflutren lipid microspheres (DEFINITY) injection 1.1 mL 1.1 mL (rounded from 1.05 mL), Intravenous, ONCE PRN, 1 dose, Starting on Thu11/19/18 at 1400, Until Thu11/19/18 at 1400, Other, for enhancement of sub-optimal echo images, Echo Lab (Intra-Procedure), Routine Given 11/19/2018 2:00 PM EDT 1.1 mLs documented in this encounter Care Teams Dental Technologist Relationship Specialty Start Date End Date Genaro Bonilla DNP PCP - General Family Medicine 11/12/18 10/03/20 documented as of this encounter
--- OUTSIDE RECORDS SUMMARY | 2023-12-08 14:54 | XMS_ITS | Encounter Summary ---
Author Organization [facility] Address [address] [place] [address] Care Team Providers Care Fire Department Marine Engineer Name Role Phone John Blackmon MD Primary Care Provider [phone] Encounter Details Date Type Department Care Team (Late st Contact Info) Description 09/21/2019 Lab Requisition [facility] Pathology & Laboratory Medicine - [facility] [address] [place], [place] [address] Outr Resulting Lab, Provider Social History Tobacco [...] Comments ZZCOVID-19 TEST [facility] PCR Today 09/21/2019 21:35 EDT COVID-19 TESTING Routine 09/21/2019 21:3 5 EDT documented in this encounter Results * COVID-19 TEST [facility] PCR (09/21/2019 21:35 EDT) Swab ENTIRE NASOPHARYNX / Unknown 09/21/2019 21:35 EDT 09/22/2019 8:37 EDT Provider Outr Resulting Lab MICROBIOLOGY - GENERAL ORDERABLES [facility] [address] [place] [address] * COVID-19 TESTING (09/21/2019 21:35 EDT) COVID-19 rt-PCR Result Negative Negative 09/22/2019 13:19 EDT [facility] Comment: This test has not [...] history, and epidemiological information. Performed on the [employer] [place] Fusion instrument Performing Lab [place] [facility] Lab 09/22/2019 13:19 EDT [facility] Swab 09/21/2019 21:3 5 EDT 09/22/2019 8:37 EDT Provider Outr Resulting Lab MICROBIOLOGY - GENERAL ORDERABLES Performing Organization Address [facility] Co de Phone Number [facility] [address] [place] [address] documented in this encounter Visit Diagnoses Not on filedocumented in this encounter Care Teams Fire Department Marine Engineer Relationship Specialty Start Date End Date John Blackomn MD PCP - General General Surgery 02/02/19 documented as of this encounter
--- OUTSIDE RECORDS SUMMARY | 2023-12-08 14:54 | XMS_ITS | Encounter Summary ---
Author Organization [facility] Address [address] [place] [address] Care Team Providers Care Logistics And Planning Manager Name Role Phone Sophia Carmichael AQUACULTURE PROGRAM DIRECTOR Primary Care Provider [phone] Encounter Details Date Type Department Care Team (Late st Contact Info) Description 12/29/2018 10:09 [facility] Hospital Encounter [facility]- [address] [address] Unknown, Provider, Social History Tobacco Use Types Packs/Day Years [...] on filedocumented in this encounter Care Teams Logistics And Planning Manager Relationship Specialty Start Date End Date Sophia Carmichael AQUACULTURE PROGRAM DIRECTOR [address] [place] [phone] PCP - General 03/03/11 02/01/19 documented as of this encounter
--- OUTSIDE RECORDS SUMMARY | 2023-12-08 14:54 | XMS_ITS | Encounter Summary ---
Author Organization [facility] Address [facility] [place] [address] Care Team Providers Care Comb Tender Name Role Phone Evangelista Staley MD Primary Care Provider [phone] Encounter Details Date Type Department Care Team (Late st Contact Info) Description 10/07/2018 Ancillary Procedure Radiology Library at [facility] [place] [address] Baldomero Machado MD [address] [place], [place] [id number] Social History Tobacco Use Types Packs/Day Years [...] FILM LIBRARY STORAGE ONLY CT CHEST Routine 10/07/2018 12:00 AM EDT documented in this encounter Results * Film Library- Storage Only CT Chest (10/07/2018 12:00 AM EDT) Narrative [facility] - 10/15/2018 10:22 AM EDT This exam is auto-finalizing. It's purpose is for storage only. Baldomero Machado MD IMG FILM LIBRARY ORD ERABLES [place], [place] documented in this encounter Visit Diagnoses Not on filedocumented in this encounter Care Teams Comb Tender Relationship Specialty Start Date End Date Evangelista Staley MD [address] [place] [address] PCP - General 06/14/18 11/11/18 documented as of this encounter
--- OUTSIDE RECORDS SUMMARY | 2023-12-08 14:54 | XMS_ITS | Referral Summary ---
Author Organization [facility] Address [address] [place] [address] Care Team Providers Care Neuropsychologist Name Role Phone John Blackmon MD Primary Care Provider [phone] Allergies Active Allergy Reactions Criticality Noted Date Comments Sulfa (Sulfonamide Antibiotics) 02/23 Hives/ headache Medications Medication Sig Dispensed Refills Start Date End Date Status polyethylene glycol (GOLYTELY) 236-22.74-6.74 gram suspensionIndicatio ns:UC (ulcerative colitis) ([facility]) Follow instructions on 'colonoscopy preparation instructions' [...] mg by mouth 3 times daily. Active Social History Tobacco Use Types Packs/Day Years [...] 23.3 03/05/2011 0903 EST Plan of Treatment Not on file Procedures Procedure Name Priority Date/Time Associated Diagnosis Comments HEPATITIS C AB W REFLEX TO HCV RNA BY PCR Routine 04/05/2020 13:20 EST from Last 3 Months or Most Recently Relevant to Health Maintenance Results * HEPATITIS C AB W REFLEX TO HCV RNA BY PCR (04/05/2020 13:20 EST) Hep C Antibody Negative Negative 2020 11:43 EST [facility] Blood VENOUS BLOOD / Unknown 04/05/2020 13:20 EST 04/06/2020 16:29 EST Provider Outr Resulting Lab CHEMISTRY & BLOOD GAS ORDERABLES [facility] [address] [place] [address] from Last 3 Months or Most Recently Relevant to Health Maintenance Care Teams Neuropsychologist Relationship Specialty Start Date End Date John Blackmon MD PCP - General General Surgery 02/02/19
--- OUTSIDE RECORDS SUMMARY | 2023-12-08 14:54 | XMS_ITS | Encounter Summary ---
[place] [address] Care Team Providers Care Chief Vendor Quality Name Role Phone Genaro Bonilla DNP Primary Care Provider Encounter Details Date Type Department Care Team (Late st Contact Info) Description 11/12/2018 Orders [place] [address] Yu Hernandez Social History Tobacco Use Types Packs/Day Years [...] on filedocumented in this encounter Care Teams Chief Vendor Quality Relationship Specialty Start Date End Date Genaro Bonilla DNP PCP - General Family Medicine 11/12/18 10/03/20 documented as of this encounter
--- OUTSIDE RECORDS SUMMARY | 2023-12-08 14:54 | XMS_ITS | Encounter Summary ---
Author Organization [facility] Address [address] [place] [address] Care Team Providers Care Retail Special Event Associate Name Role Phone John Blackmon MD Primary Care Provider [phone] Encounter Details Date Type Department Care Team ([facility] st Contact Info) Description 02/07/2020 Lab Requisition [facility] Pathology & Laboratory Medicine - [facility] [address] [place], [place] [address] Outr Resulting Lab, Provider Social History Tobacco [...] Procedure Name Priority Date/Time Associated Diagnosis Comments DO NOT ORDER STANDALONE - BROAD COVID TEST Today 02/06/2020 16:00 EST COVID-19 TESTING Routine 02/06/2020 16:0 0 EST documented in this encounter Results * DO NOT ORDER STANDALONE - BROAD COVID TEST (02/06/2020 16:00 EST) COVID-19 rt-PCR Result NEGATIVE Negative 02/09/2020 20:27 EST [facility] Comment: 2019-novel Coronavirus (2019-nCoV) not detected by the qRT-PCR assay. Consider testing for other respiratory viruses or re-collecting for 2019-nCoV testing. Note: Optimum timing for peak viral levels during infections caused by 2019-nCoV have not been determined. Collection of multiple specimens from the same patient may be necessary to detect the virus. Limitations Positive results are indicative of active infection with SARS-CoV-2 but do not rule out bacterial infection or co-infection with other viruses. The agent detected may not be the definite cause of disease. In addition, detection of viral RNA may not indicate the presence of infectious virus or that SARS-CoV-2 is the causative agent for clinical symptoms. Negative results do not preclude SARS-CoV-2 infection and should not be used as the sole basis for patient management decisions. Negative results must be combined with clinical observations, patient history, and epidemiological information. False negative results may also occur if amplification inhibitors are present in the specimen or if inadequate numbers of organisms are present in the specimen. Optimum specimen types and timing for peak viral levels during infections caused by SARS-CoV-2 have not been fully determined. Collection of multiple specimens (types and time points) from the same patient may be necessary to detect the virus. The test was validated for use with upper respiratory specimens obtained via nasopharyngeal or oropharyngeal swabs in VTM, UTM, M4, M5, M6, saline, and MTM media. The performance of this test has not been established for other specimens. Specimens collected using other FDA recommended Specimen Collection Materials listed in the FDA COVID-19 Diagnostic [employer] communication (May 19, 2019) are processed with the caveat that they were not all validated for use with this test and the result must be interpreted in this context. Furthermore, a false negative results may occur if a specimen is improperly collected, transported or handled. If the virus mutates in the RT-PCR target region, SARS-CoV-2 may not be detected or may be detected less predictably. Inhibitors or other types of interference may produce a false negative result. An interference study evaluating the effect of common cold medications was not performed. This test is not FDA-cleared but its performance characteristics were established by our CLIA-certified, CAP-accredited, high complexity laboratory in accordance with CLIA regulations, [employer] [place] Pathologists (CAP) guidelines (May 12, 2019), and FDA guidance (Apr 23, 2019). This test is only for use under the Food and Drug Administration's Emergency Use Authorization. Swab ENTIRE NASOPHARYNX / Unknown 02/06/2020 16:00 EST 02/07/2020 16:14 EST Provider Outr Resulting Lab MICROBIOLOGY - GENERAL ORDERABLES [facility] [place], [place] * COVID-19 TESTING (02/06/2020 16:00 EST) COVID-19 rt-PCR Result NEGATIVE Negative 02/09/2020 21:19 EST [facility] Comment: 2019-novel Coronavirus (2019-nCoV) not detected by the qRT-PCR assay. Consider testing for other respiratory viruses or re-collecting for 2019-nCoV testing. Note: Optimum timing for peak viral levels during infections caused by 2019-nCoV have not been determined. Collection of multiple specimens from the same patient may be necessary to detect the virus. Limitations Positive results are indicative of active infection with SARS-CoV-2 but do not rule out bacterial infection or co-infection with other viruses. The agent detected may not be the definite cause of disease. In addition, detection of viral RNA may not indicate the presence of infectious virus or that SARS-CoV-2 is the causative agent for clinical symptoms. Negative results do not preclude SARS-CoV-2 infection and should not be used as the sole basis for patient management decisions. Negative results must be combined with clinical observations, patient history, and epidemiological information. False negative results may also occur if amplification inhibitors are present in the specimen or if inadequate numbers of organisms are present in the specimen. Optimum specimen types and timing for peak viral levels during infections caused by SARS-CoV-2 have not been fully determined. Collection of multiple specimens (types and time points) from the same patient may be necessary to detect the virus. The test was validated for use with upper respiratory specimens obtained via nasopharyngeal or oropharyngeal swabs in VTM, UTM, M4, M5, M6, saline, and MTM media. The performance of this test has not been established for other specimens. Specimens collected using other FDA recommended Specimen Collection Materials listed in the FDA COVID-19 [employer] communication (May 19, 2019) are processed with the caveat that they were not all validated for use with this test and the result must be interpreted in this context. Furthermore, a false negative results may occur if a specimen is improperly collected, transported or handled. If the virus mutates in the RT-PCR target region, SARS-CoV-2 may not be detected or may be detected less predictably. Inhibitors or other types of interference may produce a false negative result. An interference study evaluating the effect of common cold medications was not performed. This test is not FDA-cleared but its performance characteristics were established by our CLIA-certified, CAP-accredited, high complexity laboratory in accordance with CLIA regulations, College [employer] Of [place] Pathologists (CAP) guidelines (May 12, 2019), and FDA guidance (Apr 23, 2019). This test is only for use under the Food and Drug Administration's Emergency Use Authorization. Performing Lab [facility] 02/09/2020 21:[address] [facility] Swab 02/06/2020 16:0 0 EST 02/07/2020 16:14 EST Provider Outr Resulting Lab MICROBIOLOGY - GENERAL ORDERABLES [facility] [address] [place], [place] [id number] [place] [address] LABORATORY [place], [place] documented in this encounter Visit Diagnoses Not on filedocumented in this encounter Care Teams Retail Special Event Associate Relationship Specialty Start Date End Date John Balckmon MD PCP - General General Surgery 02/02/19 documented as of this encounter
--- OUTSIDE RECORDS SUMMARY | 2023-12-08 14:54 | XMS_ITS | Encounter Summary ---
Author Organization [facility] Address [address] [place] [address] Care Team Providers Care Physician Specialist Name Role Phone John Blackmon MD Primary Care Provider [phone] Encounter Details Date Type Department Care Team (Late st Contact Info) Description 04/06/2020 Lab Requisition [facility] Pathology & Laboratory Medicine - [address] [address] Outr Resulting Lab, Provider Social History Tobacco [...] RNA BY PCR Routine 04/05/2020 13:20 EST documented in this encounter Results * HEPATITIS C AB W REFLEX TO HCV RNA BY PCR (04/05/2020 13:20 EST) Hep C Antibody Negative Negative 2020 11:43 EST [facility] Blood VENOUS BLOOD / Unknown 04/05/2020 13:20 EST 04/06/2020 16:29 EST Provider Outr Resulting Lab CHEMISTRY & BLOOD GAS ORDERABLES [facility] [address] [place] [address] documented in this encounter Visit Diagnoses Not on filedocumented in this encounter Care Teams Physician Specialist Relationship Specialty Start Date End Date John Blackmon MD PCP - General General Surgery 02/02/19 documented as of this encounter
--- OUTSIDE RECORDS SUMMARY | 2023-12-08 14:54 | XMS_ITS | Encounter Summary ---
Author Organization [facility] Address [address] [place] [address] Care Team Providers Care Platform Attendant Name Role Phone Sophia Carmichael NP Primary Care Provider [phone] John Blackmon MD Primary Care Provider [phone] Encounter Details Date Type Department Care Team (Late st Contact Info) Description 01/14/2019 Lab Requisition [facility] Pathology & Laboratory Medicine - [facility] [address] [place] [address] Unknown, Provider, Social History Tobacco Use Types [...] Procedure Name Priority Date/Time Associated Diagnosis Comments CELIAC DISEASE PANEL Routine 01/14/2019 9:45 EST documented in this encounter Results * CELIAC DISEASE PANEL (01/14/2019 9:45 EST) Tissue Transglutaminase Antibody IGA <1.2 <4.0 U/mL 01/17/2019 16:03 EST [facility] Comment: A negative result may be due to IgA deficiency and does not rule out celiac disease. ? Negative: ??<4.0 U/mL ? Weak Positive: ??4.0 - 10.0 U/mL ? Positive: ??>10.0 U/mL Results were obtained with the [employer] QUANTA Lite R h-tTG IgA MALIA assay on the [employer] DSX. IgA 214 85 - 499 mg/dL 01/17/2019 16:03 EST [facility] Comment:This is an appended report. These results have been appended to a previously preliminary verified report. Celiac Disease Interpretation Negative Serology. Celiac disease unlikely. Approximately 10% of patients with celiac disease are seronegative. Patients who are already adhering to a gluten-free diet may also be seronegative. If celiac disease is highly clinically suspected, referral to gastroenterology for additional evaluation is recommended. 01/17/2019 16:03 EST [facility] Blood VENOUS BLOOD / Unknown 01/14/2019 9:45 EST 01/14/2019 21:48 EST Provider Unknown IMMUNOLOGY AND SEROL CHRISSIE ORDERABLES Performing Organization Address City/State/[facility] Co de Phone Number [facility] [address] [place] [address] documented in this encounter Visit Diagnoses Not on filedocumented in this encounter Care Teams Platform Attendant Relationship Specialty Start Date End Date Sophia Carmichael NP [address] [phone] PCP - General 03/03/11 02/01/19 John Blackmon MD [address] [phone] PCP - General General Surgery 02/02/19 documented as of this encounter
--- OUTSIDE RECORDS SUMMARY | 2023-12-08 14:54 | XMS_ITS | Encounter Summary ---
Author Organization [facility] Address [address] [place] [address] Care Team Providers Care Editor Department Name Role Phone JasonalciraSophia ROAD SIGN INSTALLER Primary Care Provider [phone] Encounter Details Date Type Department Care Team (Latest Contact Info) Description 03/05/2011 8:19 EST - 03/05/2011 21:53 EST Hospital Encounter [facility] [place] - [address] [id number] Rangel Carlson MD Discharge Disposition: Home or Self Care Social History Tobacco Use Types Packs/Day Years [...] Body Mass Index 23.3 03/05/2011 0903 EST documented in this encounter Medications at Time of Discharge Medication Sig Dispensed Refills Start Date End Date alprazolam (XANAX) 0.5 mg tablet Take 0.5 mg by mouth 3 times daily. amitriptyline (ELAVIL) 10 mg tablet Take 10 mg by mouth 3 times daily. buPROPion (WELLBUTRIN XL) 300 mg XL tablet Take 300 mg by mouth daily. levothyroxine (SYNTHROID) 50 mcg tablet Take 50 mcg by mouth daily. naltrexone (REVIA) 50 mg tablet Take 50 mg by mouth daily. polyethylene glycol (GOLYTELY) 236-22.74-6.74 gram suspensionIndications: UC (ulcerative colitis) ([facility]) Follow instructions on 'colonoscopy preparation instructions' sheet. 1 Bottle 0 02/04/2011 documented as of this encounter Discharge Disposition Disposition Code Departure Means Destination Home or Self Care documented in this encounter H&P Notes * Rangel Carlson MD - 03/05/2011 0910 EST Sedation for Procedure History & Physical Date: 03/05/2011 Time: 9:10 Location: [address] Planned Procedure: Colonoscopy Chief Complaint/Indications for Procedure: IBD History Previous Complication with Sedation and/or Anesthesia? No Allergies: Allergies Allergen Reactions ??? Sulfa (Sulfonamide Antibiotics) Hives/ headache Current Medications: Prescriptions prior to admission Medication Sig Dispense Refill ??? buPROPion (WELLBUTRIN XL) 300 mg XL tablet Take 300 mg by mouth daily. ??? naltrexone (REVIA) 50 mg tablet Take 50 mg by mouth daily. ??? alprazolam (XANAX) 0.5 mg tablet Take 0.5 mg by mouth 3 times daily. ??? levothyroxine (SYNTHROID) 50 mcg tablet Take 50 mcg by mouth daily. ??? amitriptyline (ELAVIL) 10 mg tablet Take 10 mg by mouth 3 times daily. ??? polyethylene glycol (GOLYTELY) 236-22.74-6.74 gram suspension Follow instructions on 'colonoscopy preparation instructions' sheet. 1 Bottle 0 Past Medical History: Past Medical History Diagnosis Date ??? Inflammatory bowel disease u c ??? Mental disorder Social History: Past Surgical History Procedure Date ??? section x 2 History Substance Use Topics ??? Smoking status: Not on file ??? Smokeless tobacco: Not on file ??? Alcohol Use: Yes occ Family History: Family History Problem Relation Age of Onset ??? Breast Cancer Sister ??? Colon Cancer Neg Hx ??? Colon Polyps Neg Hx ??? Endometrial Cancer Neg Hx ??? Esophageal Cancer Neg Hx ??? Ovarian Cancer Neg Hx ??? Pancreatic Cancer Neg Hx ??? Rectal Cancer Neg Hx ??? Stomach Cancer Neg Hx Review of Systems as pertinent: Physical Exam Vital Signs: BP 107/72 Temp(Src) 36.1 ??C (97 ??F) (Tympanic) Resp 16 Ht 165.1 cm (65) Wt 63.504 kg (140 lb) BMI 23.30 kg/m2 SpO2 99% Heart Examination: Cardiac Regularity: Regular Respiratory Examination: Respiratory Pattern: Regular Breath Sounds Right: Clear Breath Sounds Left: Clear Additional physical exam related to the proposed procedure, patient activity, disease state and treatment as pertinent: Assessment Previous complications with sedation or anesthesia?: No Airway Concerns: None Anesthesia Classification: ASA 2 Fasting Time: Time of last liquid intake: 0445 Date of Last Liquid Intake: 03/05/11 Time of last solid intake: 1800 Date of last solid intake: 03/03/11 Patient Appropriate Candidate for Planned Sedation?: Yes documented in this encounter Procedure Notes * Feed Weigher, Scan - 03/06/2011 1341 ESTAssociated Order(s): ORDERS - SCANNED * Feed Weigher, Scan - 03/06/2011 0801 ESTAssociated Order(s): PROCEDURE REPORTS - SCANNED documented in this encounter OR Notes * Anesthesia Procedure Notes - PE ELECTRICAL ENGINEER, SCAN 2 - 10/20/2012 1238 EDT * Anesthesia Preprocedure Evaluation - Feed Weigher, Scan - 03/06/2011 1341 EST documented in this encounter Miscellaneous Notes * Scanned Note-Null - Feed Weigher, Scan - 03/06/2011 1341 EST * Scanned Note-Null - Feed Weigher, Scan - 03/06/2011 1341 EST * Anesthesia Post-Eval - Marshall Sue - 03/05/2011 1159 EST Post Anesthesia Evaluation Note Date of Service: 03/05/2011 Martina Kuhn, a 55 y.o. year old female has received General Anesthesia today. She has been evaluated, assessed and discharged from anesthesia care with stable cardiorespiratory function and alert mental status. The last set of recorded vital signs and pain rating were reviewed: BP: 98/60 mmHg (03/05/11 1104), Resp: 16 (03/05/11 1104), SpO2: 97 % (03/05/11 1104),Numeric Pain Level (Scale 1-10): 0 Martina Kuhn participated in this evaluation unless otherwise noted. Her pain, nausea and vomiting have been managed and her body temperature and fluid balance have been restored. Additional monitoring and assessment needs have been addressed. If present, any postoperative events are documented below. MARSHALL SUE MD 03/05/2011 11:59 documented in this encounter Plan of Treatment Not on file documented as of this encounter Procedures Procedure Name Priority Date/Time Associated Diagnosis Comments ORDERS - SCANNED 03/06/2011 13:4 1 EST PROCEDURE REPORTS - SCANNED 03/06/2011 8:01 EST documented in this encounter Results * ORDERS - SCANNED (03/06/2011 13:41 EST) 03/06/2011 13:4 1 EST Narrative POINT OF CARE - 03/12/2011 8:08 EST A scan was deleted from the Results section by Ron Hall [[email or web address]] on 03/12/2011 at ??8:08 (File: [id number]) Transcriptions Feed Weigher, Scan - 03/06/2011 13:41 EST Scan Feed Weigher ADMISSION ORDERABLES POINT OF CARE * PROCEDURE REPORTS - SCANNED (03/06/2011 8:01 EST) 03/06/2011 8:01 EST Narrative Transcriptions Feed Weigher, Scan - 03/06/2011 8:01 EST Scan Feed Weigher PROCEDURE/MINOR SURG ICAL ORDERABLES documented in this encounter Visit Diagnoses Not on filedocumented in this encounter Administered Medications Inactive Administered Medications - up to 3 most recent administrations Medication Order MAR Action Action Date Dose Rate Site lactated ringers (LR) infusion 30 mL/hr, intravenous, CONTINUOUS, Starting on Thu03/05/11 at 0930, Until Thu03/05/11 at 2353, Routine, Preprocedure New Bag 03/05/2011 9:21 EST 30 mL/hr 30 mL/hr documented in this encounter Historical Medications * This list may reflect changes made after this encounter. Medication Sig Dispensed Refills Start Date End Date amitriptyline (ELAVIL) 10 mg tablet Take 10 mg by mouth 3 times daily. levothyroxine (SYNTHROID) 50 mcg tablet Take 50 mcg by mouth daily. alprazolam (XANAX) 0.5 mg tablet Take 0.5 mg by mouth 3 times daily. naltrexone (REVIA) 50 mg tablet Take 50 mg by mouth daily. buPROPion (WELLBUTRIN XL) 300 mg XL tablet Take 300 mg by mouth daily. added in this encounter Active and Recently Administered Medications Times are shown in EST. Continuous Medication Order 03/03/2011 03/04/2011 03/05/2011 lactated ringers (LR) infusion (CANCELED) 30 mL/hr, intravenous, CONTINUOUS, Starting on Thu03/05/11 at 0930, Until Thu03/05/11 at 2353, Routine, Preprocedure 0921 (New Bag - Prov ider: Evelia Tsang RN)1119 (Completed - Provider: Magali Darnell RN) documented in this encounter Orders Medications Ordered That Chester ht Not Have Been Administered Count Last Ordered Date First Ordered Date fentanyl citrate (PF) 50 mcg /mL injection 100-250 mcg 1 03/05/2011 flumazenil (ROMAZICON) injection 0.2 mg 1 0 03/05/2011 meperidine (PF) (DEMEROL) 10 0 mg/mL injection 25-200 mg 1 03/05/2011 midazolam (VERSED) injection 1-10 mg 1 02/23 naloxone (NARCAN) injection 0.4 mg 1 2011 ondansetron (PF) (ZOFRAN) injection 2-4 mg 1 03/05/2011 Discharge Count Last Ordered Date First Orde red Date DISCHARGE PATIENT 2 03/05/2011 documented in this encounter Care Teams Editor Department Relationship Specialty Start Date End Date Sophia Carmichael NP [address] [place] [id number] PCP - General 03/03/11 02/01/19 documented as of this encounter
--- OUTSIDE RECORDS SUMMARY | 2023-12-08 14:54 | XMS_ITS | Encounter Summary ---
Author Organization [facility] Address [facility] [place] [address] Care Team Providers Care Greenhouse Assistant Name Role Phone Evangelista Staley MD Primary Care Provider [phone] Encounter Details Date Type Department Care Team (Late st Contact Info) Description 09/05/2018 Ancillary Procedure Radiology Library at [facility] [place] [id number] Baldomero Machado MD [address] [place], [place] [id number] Social History Tobacco Use Types Packs/Day Years [...] FILM LIBRARY STORAGE ONLY DX CHEST Routine 09/05/2018 12:00 AM EDT documented in this encounter Results * Film Library- Storage Only DX Chest (09/05/2018 12:00 AM EDT) Narrative [facility] - 10/15/2018 10:25 AM EDT This exam is auto-finalizing. It's purpose is for storage only. Baldomero Machado MD IMG FILM LIBRARY ORD ERABLES [place], [place] documented in this encounter Visit Diagnoses Not on filedocumented in this encounter Care Teams Greenhouse Assistant Relationship Specialty Start Date End Date Evangelista Staley MD [address] [place] [address] PCP - General 06/14/18 11/11/18 documented as of this encounter
--- OUTSIDE RECORDS SUMMARY | 2023-12-08 14:54 | XMS_ITS | Encounter Summary ---
Author Organization [facility] Address [facility] [place] [address] Care Team Providers Care Postdoctoral Fellow Name Role Phone Unavailable Primary Care Provider Unavailabl e Encounter Details Date Type Department Care Team (Late st Contact Info) Description 12/14/2006 Ancillary Procedure Radiology Library at [facility] [place] [phone] Genaro Bonilla DNP [address] [place], [place] [id number] Social History Tobacco Use Types Packs/Day Years [...] Comments FILM LIBRARY STORAGE ONLY MAMMO Routine 12/14/2006 12:00 AM EDT documented in this encounter Results * Film Library- Storage Only Mammo (12/14/2006 12:00 AM EDT) Narrative [facility] - 01/26/2019 1:56 PM EST This exam is auto-finalizing. It's purpose is for storage only. Genaro Bonilla DNP IMG FILM LIBRARY OR DERABLES [facility] [place] documented in this encounter Visit Diagnoses Not on filedocumented in this encounter
--- OUTSIDE RECORDS SUMMARY | 2023-12-08 14:54 | XMS_ITS | Encounter Summary ---
Author Organization [facility] Address [facility] [place] [address] Care Team Providers Care Entry Driver Operator Name Role Phone Evangelista Staley MD Primary Care Provider [phone] Encounter Details Date Type Department Care Team (Late st Contact Info) Description 11/02/2012 Ancillary Procedure Radiology Library [place] [facility] [place] [phone] Genaro Bonilla DNP [address] [place] [phone] Social History Tobacco Use Types Packs/Day Years [...] Only Mammo (11/02/2012 12:00 AM EDT) Narrative [facility] - 12/16/2018 12:42 PM EDT This exam is auto-finalizing. It's purpose is for storage only. Genaro Bonilla DNP IMG FILM LIBRARY OR DERABLES [place], [place] documented in this encounter Visit Diagnoses Not on filedocumented in this encounter Care Teams Entry Driver Operator Relationship Specialty Start Date End Date Evangelista Staley MD PCP - General 01/15/10 06/13/18 documented as of this encounter
--- OUTSIDE RECORDS SUMMARY | 2023-12-08 14:54 | XMS_ITS | Encounter Summary ---
Author Organization [facility] Address [address] [place] [address] Care Team Providers Care Furnace Caretaker Name Role Phone John Blackmon MD Primary Care Provider [phone] Encounter Details Date Type Department Care Team (Late st Contact Info) Description 12/01/2020 Lab Requisition [facility] Pathology & Laboratory Medicine - [facility] [address] [place] [address] Sherlyn Balbuena, DO [address] [place], [place] [id number] Ulcerative colitis, unspecified, without complications (HCC-CMS) ([facility]) ([facility]) Social History Tobacco Use Types Packs/Day Years [...] Date/Time Associated Diagnosis Comments SURGICAL PATHOLOGY Today 11/30/2020 13 :00 EDT Ulcerative colitis, unspecified, without complications (HCC-CMS) (HCC) documented in this encounter Results * SURGICAL PATHOLOGY (11/30/2020 13:00 EDT) Note to Patient The following pathology results have been interpreted by your pathologist and may be available to you before your health provider has had the opportunity to review them. Please allow time for your provider to receive these results and explore management options, if applicable. 12/03/2020 15:25 [facility] Final Diagnosis A. JEJUNUM, PROXIMAL, BIOPSY: - Enteric mucosa with no significant diagnostic abnormality. B. DUODENUM, BULB, BIOPSY: - Enteric mucosa with no significant diagnostic abnormality. C. STOMACH, ANTRUM, BIOPSY: - Antral-type mucosa with no significant diagnostic abnormality. D. STOMACH, GREATER CURVE, BIOPSY: - Oxyntic-type mucosa with no significant diagnostic abnormality. E. GASTROESOPHAGEAL JUNCTION, BIOPSY: - Columnar mucosa with no significant diagnostic abnormality. - Negative for intestinal metaplasia. - Negative for dysplasia. F. ESOPHAGUS, DISTAL, BIOPSY: - Squamous mucosa with no significant diagnostic abnormality. G. COLON, CECUM, BIOPSY: - Colonic mucosa with no significant diagnostic abnormality. - Negative for dysplasia. H. COLON, 90 CM, BIOPSY: - Colonic mucosa with no significant diagnostic abnormality. - Negative for dysplasia. I. COLON, 80 CM, BIOPSY: - Colonic mucosa with no significant diagnostic abnormality. - Negative for dysplasia. J. COLON, 70 CM, BIOPSY: - Colonic mucosa with no significant diagnostic abnormality. - Negative for dysplasia. K. COLON, 60 CM, BIOPSY: - Colonic mucosa with no significant diagnostic abnormality. - Negative for dysplasia. L. COLON, 50 CM, BIOPSY: - Colonic mucosa with no significant diagnostic abnormality. - Negative for dysplasia. M. COLON, 40 CM, BIOPSY: - Colonic mucosa with no significant diagnostic abnormality. - Negative for dysplasia. N. COLON, POLYP, 30 CM, BIOPSY: - Tubular adenoma. O. COLON, POLYP, 40 CM, BIOPSY: - Polypoid colonic mucosa with mild regenerative changes. P. COLON, 30 CM, BIOPSY: - Colonic mucosa with no significant diagnostic abnormality. - Negative for dysplasia. Q. COLON, 20 CM, BIOPSY: - Colonic mucosa with no significant diagnostic abnormality. - Negative for dysplasia. R. RECTUM, BIOPSY: - Colonic mucosa with no significant diagnostic abnormality. - Negative for dysplasia. 12/03/2020 15:25 [facility] Attestation By the signature below, the attending physician certifies that they have 1) personally conducted a gross and/or microscopic examination of the described specimen(s), and/or personally interpreted the results of laboratory testing of the described specimen(s), and 2) personally rendered or confirmed the above diagnosis. 12/03/2020 15:25 [facility] at 1525 Clinical History GERD, weight loss, history of ulcerative colitis 12/03/2020 15:25 [facility] Gross Description A. Received in formalin labelled with proper patient identification (initials M, K) and proximal jejunum is a single fragment of mitchell soft tissue (0.4 x 0.3 x 0.2 cm). The specimen is entirely submitted in A1. B. Received in formalin labelled with proper patient identification (initials M, K) and duodenal bulb Bx is a single fragment of mitchell soft tissue (0.4 x 0.2 x 0.2 cm). The specimen is entirely submitted in B1. C. Received in formalin labelled with proper patient identification (initials M, K) and antrum Bx is a single fragment of mitchell soft tissue (0.3 x 0.3 x 0.2 cm). The specimen is entirely submitted in C1. D. Received in formalin labelled with proper patient identification (initials M, K) and greater curve Bx is a single fragment of mitchell soft tissue (0.4 x 0.3 x 0.2 cm). The specimen is entirely submitted in D1. E. Received in formalin labelled with proper patient identification (initials M, K) and GE junction Bx is a single fragment of mitchell soft tissue (0.3 x 0.3 x 0.2 cm). The specimen is entirely submitted in E1. F. Received in formalin labelled with proper patient identification (initials M, K) and distal esophagus Bx is a single fragment of mitchell-parsons soft tissue (0.3 x 0.3 x 0.2 cm). The specimen is entirely submitted in F1. G. Received in formalin labelled with proper patient identification (initials M, K) and cecum Bx are 2 fragments of mitchell-yellow soft tissue (0.2 x 0.2 x 0.2 cm and 0.4 x 0.3 x 0.2 cm). The specimen is entirely submitted in G1. H. Received in formalin labelled with proper patient identification (initials M, K) and biopsy at 90 cm are 2 fragments of mitchell soft tissue (0.2 x 0.2 x 0.2 cm and 0.6 x 0.3 x 0.2 cm). The specimen is entirely submitted in H1. I. Received in formalin labelled with proper patient identification (initials M, K) and Bx at 80 cm are 2 fragments of mitchell soft tissue (0.2 x 0.2 x 0.2 cm and 0.4 x 0.2 x 0.2 cm). The specimen is entirely submitted in I1. J. Received in formalin labelled with proper patient identification (initials M, K) and Bx at 70 cm is a single fragment of mitchell soft tissue (0.4 x 0.3 x 0.2 cm). The specimen is entirely submitted in J1. K. Received in formalin labelled with proper patient identification (initials M, K) and biopsy at 60 cm are 2 fragments of mitchell soft tissue (0.2 x 0.2 x 0.2 cm and 0.4 x 0.3 x 0.2 cm). The specimen is entirely submitted in K1. L. Received in formalin labelled with proper patient identification (initials M, K) and biopsy at 50 cm are 2 fragments of mitchell soft tissue (0.2 x 0.2 x 0.2 cm and 0.4 x 0.3 x 0.2 cm). The specimen is entirely submitted in L1. M. Received in formalin labelled with proper patient identification (initials M, K) and biopsy at 40 cm are 2 fragments of mitchell soft tissue (each averaging 0.4 x 0.3 x 0.2 cm). The specimen is entirely submitted in M 1. N. Received in formalin labelled with proper patient identification (initials M, K) and polyp at 30 cm is a 0.6 x 0.6 x 0.4 cm polypoid fragment of mitchell-red soft tissue. The specimen is bisected and entirely submitted in N 1. O. Received in formalin labelled with proper patient identification (initials M, K) and polyp at 40 cm is a 0.3 x 0.2 x 0.2 cm fragment of mitchell soft tissue. The specimen is entirely submitted in O 1. P. Received in formalin labelled with proper patient identification (initials M, K) and Bx at 30 cm is a single fragment of mitchell soft tissue (0.5 x 0.3 x 0.2 cm). The specimen is entirely submitted in P 1. Q. Received in formalin labelled with proper patient identification (initials M, K) and Bx at 20 cm is a single fragment of mitchell soft tissue (0.6 x 0.3 x 0.2 cm). The specimen is entirely submitted in Q 1. R. Received in formalin labelled with proper patient identification (initials M, K) and rectum Bx is a single fragment of mitchell soft tissue (0.6 x 0.3 x 0.2 cm). The specimen is entirely submitted in R 1. GRAYSON GARCIA(ASCP) 12/03/2020 7:49 12/03/2020 15:25 EDT [facility] Performing Lab [facility] 15:25 EDT [facility] Scanned Images 12/03/2020 15:25 EDT [facility] Tissue SPECIMEN FROM RECTUM / Unknown 11/30/2020 13:00 EDT 12/01/2020 8:34 EDT Tissue specimen (specimen) STRUCTURE OF SMALL INTESTINE / Unknown 11/30/2020 13:00 EDT 12/01/2020 8:34 EDT Tissue specimen (specimen) STOMACH STRUCTURE / Unknown 11/30/2020 13:00 EDT 12/01/2020 8:34 EDT Tissue specimen (specimen) STOMACH STRUCTURE / Unknown 11/30/2020 13:00 EDT 12/01/2020 8:34 EDT Tissue specimen (specimen) CARDIOESOPHAGEAL JUNCTION STRUCTURE / Unknown 11/30/2020 13:00 EDT 12/01/2020 8:34 EDT Tissue specimen (specimen) ESOPHAGEAL STRUCTURE / Unknown 11/30/2020 13:00 EDT 12/01/2020 8:34 EDT Tissue specimen (specimen) CECUM STRUCTURE / Unknown 11/30/2020 13:00 EDT 12/01/2020 8:34 EDT Tissue specimen (specimen) COLON STRUCTURE / Unknown 11/30/2020 13:00 EDT 12/01/2020 8:34 EDT Tissue specimen (specimen) COLON STRUCTURE / Unknown 11/30/2020 13:00 EDT 12/01/2020 8:34 EDT Tissue specimen (specimen) COLON STRUCTURE / Unknown 11/30/2020 13:00 EDT 12/01/2020 8:34 EDT Tissue specimen (specimen) COLON STRUCTURE / Unknown 11/30/2020 13:00 EDT 12/01/2020 8:34 EDT Tissue specimen (specimen) COLON STRUCTURE / Unknown 11/30/2020 13:00 EDT 12/01/2020 8:34 EDT Tissue specimen (specimen) COLON STRUCTURE / Unknown 11/30/2020 13:00 EDT 12/01/2020 8:34 EDT Tissue specimen (specimen) COLON STRUCTURE / Unknown 11/30/2020 13:00 EDT 12/01/2020 8:34 EDT Tissue specimen (specimen) COLON STRUCTURE / Unknown 11/30/2020 13:00 EDT 12/01/2020 8:34 EDT Tissue specimen (specimen) COLON STRUCTURE / Unknown 11/30/2020 13:00 EDT 12/01/2020 8:34 EDT Tissue specimen (specimen) COLON STRUCTURE / Unknown 11/30/2020 13:00 EDT 12/01/2020 8:34 EDT Tissue specimen (specimen) SPECIMEN FROM RECTUM / Unknown 11/30/2020 13:00 EDT 12/01/2020 8:34 EDT Sherlyn Balbuena DO PATHOLOGY ORDERABLES [facility] [address] [place] [address] documented in this encounter Visit Diagnoses Diagnosis Ulcerative colitis, unspecified, without complications (HCC-CMS) documented in this encounter Care Teams Furnace Caretaker Relationship Specialty Start Date End Date John Blackmon MD PCP - General General Surgery 02/02/19 documented as of this encounter
--- OUTSIDE RECORDS SUMMARY | 2023-12-08 14:55 | XMS_ITS | Encounter Summary ---
Author Organization [facility] Address [address] [place] [address] Care Team Providers Care Seasonal Package Handler Name Role Phone Unavailable Primary Care Provider Unavailabl e Encounter Details Date Type Department Care Team ([facility] st Contact Info) Description 08/17/2006 Results Only [facility] conversion [address] [place] [address] Kristal Cordova, KLAUS Social History Tobacco Use Types Packs/Day Years Used Date Smoking Tobacco: Never Assessed Sex and Gender Information Value Date Recorded Sex Assigned at Not on file Gender Identity Not on file Sexual Orientation Not on file documented as of this encounter Plan of Treatment Not on file documented as of this encounter Procedures Procedure Name Priority Date/Time Associated Diagnosis Comments CYTOPATHOLOGY Routine 08/17/2006 0:00 EDT documented in this encounter Results * CYTOPATHOLOGY (08/17/2006 0:00 EDT) Pathology Report: CYTOPATHOLOGY REPORT Reports generated via electronic interface contain original data; however they are lacking the format of the original report. Caution should be taken when reading/interpreti ng unformatted reports. Name: ? ALPA KUHN ? Accession #: ? [id number] : ? 1955 (Age: 51) ??F ?Collect Date: ? 08/17/2006 Location: ? [facility] ? Receive Date: ? 08/19/2006 Provider: ?KRISTAL CORDOVA PLUMBING ENGINEER Copy to: ? [facility] [facility] ?[address] ?[place], [place] [address] ? Specimen/Source: ?ThinPrep Pap Test, Cervix/Endocervix, processed on [employer]eticaPrep Imaging System, with manual evaluation Last Menstrual Period: ? 07/24/06 Previous Gynecologic Pathology: ? LSIL: 12/25 Yes: 2003, 2005 paps neg. Treatment History: ? Colposcopy: 01/24 Miscellaneous treatment: ECC neg 01/24 Other: ? HPVA - HPV testing requested if ASC-US on the current ThinPrep Pap test. ? SPECIMEN ADEQUACY ? Satisfactory for Evaluation - transformation zone component absent GENERAL CATEGORIZATION ? Negative for Intraepithelial Lesion or Malignancy ? Document reviewed and electronically signed by: ? QUITA Vance(ASCP) ? Report Date: ??08/27/2006 14:17 End of Report [facility] 08/17/2006 08/19/2006 Kristal Cordova NP PATHOLOGY ORDERABLES [facility] [address] [place] [address] documented in this encounter Visit Diagnoses Not on filedocumented in this encounter
--- OUTSIDE RECORDS SUMMARY | 2023-12-08 14:55 | XMS_ITS | Encounter Summary ---
Author Organization [facility] Address [address] [place] [address] Care Team Providers Care Dish Machine Operator Name Role Phone Unavailable Primary Care Provider Unavailabl e Encounter Details Date Type Department Care Team ([facility] st Contact Info) Description 01/12/2002 Results Only [facility] conversion [address] [place] [address] Kristal Cordova, KLUAS Social History Tobacco Use Types Packs/Day Years Used Date Smoking Tobacco: Never Assessed Sex and Gender Information Value Date Recorded Sex Assigned at Not on file Gender Identity Not on file Sexual Orientation Not on file documented as of this encounter Plan of Treatment Not on file documented as of this encounter Procedures Procedure Name Priority Date/Time Associated Diagnosis Comments CYTOPATHOLOGY Routine 01/12/2002 0:00 EST documented in this encounter Results * CYTOPATHOLOGY (01/12/2002 0:00 EST) Pathology Report: CYTOPATHOLOGY REPORT Reports generated via electronic interface contain original data; however they are lacking the format of the original report. Caution should be taken when reading/interpreti ng unformatted reports. Name: ? ALPA KUHN ? Accession #: ? [id number] : ? 1955 (Age: 46) ??F ?Collect Date: ? 01/12/2002 Location: ? [facility] ? Receive Date: ? 01/13/2002 Provider: ?KRISTAL CORDOVA MANAGER OF HOSPITAL Copy to: ? Specimen/Source: ?ThinPrep Pap Test, Cervix/Endocervix Last Menstrual Period: ? 12/28/01 Hormonal/Contracep tive Status: ? Oral contraceptives Other: ? Additional clinical information: Paps WNL ? SPECIMEN ADEQUACY ? Satisfactory for Evaluation - transformation zone component present GENERAL CATEGORIZATION ? Epithelial Cell Abnormality INTERPRETATION ? Squamous Cell Abnormality - Low grade squamous intraepithelial lesion (LSIL). EDUCATIONAL NOTES/RECOMMENDATI ONS ? [facility] recommends following the 2001 Consensus Guidelines for the Management of Women with Cervical Cytological Abnormalities (LULI,2002;287:212 0-9). Management algorithms have been distributed by [facility] and are available online at www.[email or web address]. ? Document reviewed and electronically signed by: ? ALEXEI KC MD ? Report Date: ??01/19/2002 15:26 End of Report [facility] 01/12/2002 01/13/2002 Kristal Cordova NP PATHOLOGY ORDERABLES Performing Organization Address City/State/[facility] Co de Phone Number [facility] [address] [place] [address] documented in this encounter Visit Diagnoses Not on filedocumented in this encounter
--- OUTSIDE RECORDS SUMMARY | 2023-12-08 14:55 | XMS_ITS | Encounter Summary ---
Author Organization [facility] Address [address] [place] [address] Care Team Providers Care Animal Attendant Name Role Phone Unavailable Primary Care Provider Unavailabl e Encounter Details Date Type Department Care Team (Latest Contact Info) Description 11/01/2001 11:55 EDT - 11/01/2001 11:59 EDT Hospital Encounter [facility] [address] [place] [address] Dottie Banegas MD Discharge Disposition: Auto Discharge Social History [...] Date/Time Associated Diagnosis Comments SURGICAL PATHOLOGY Routine 11/01/2001 0:00 EDT documented in this encounter Results * SURGICAL PATHOLOGY (11/01/2001 0:00 EDT) Pathology Report: SURGICAL PATHOLOGY REPORT Reports generated via electronic interface contain original data; however they are lacking the format of the original report. Caution should be taken when reading/interpreti ng unformatted reports. Name: ? ALPA KUHN ? Accession #: ? [id number] ? : ? 1955 (Age: 46) ??F ? Collect Date: ? 11/01/2001 ? Location: ? [facility] ? Receive Date: ? 11/01/2001 ? Provider: DOTTIE BANEGAS MD Copy to: ERICA CARTER MD ? Final Pathologic Diagnosis: A. ?Terminal ileum, biopsy: 1. ?Intestinal mucosa with prominent lymphoid follicles (Peyer' s patches); no specific pathologic features. B. ?Colon, ascending, biopsy: 1. ?Colonic mucosa; no specific pathologic features. C. ?Colon, descending, biopsy: 1. ?Chronic colitis, consistent with inflammatory bowel disease (IBD), with mild to moderate inflammatory activity. 2. ?No evidence of dysplasia. D. ?Colon, rectum, biopsy: 1. ?Chronic proctitis, consistent with inflammatory bowel disease (IBD), with moderate inflammatory activity. 2. ?No evidence of dysplasia. Comment: ? The features and distribution of the inflammatory process are consistent with inflammatory bowel disease, favor ulcerative colitis. ??(Dr. Mina)/[facility] Document reviewed and electronically signed by: Alina Mina MD Report ??Date: 11/02/2001 19:17 By the signature above, the attending physician certifies that he/she has personally conducted a gross and/or microscopic examination of the described specimens and rendered or confirmed the above diagnosis. Specimen(s) Received: A. ?TI B. ?Ascending C. ?Descending D. ?Rectum Clinical History: ? IBD, CD vs UC Gross Description: ? Received in Hollande' s fixative labelled Mulligan and TI are two mitchell-pink irregular soft tissues fragments measuring 0.2 x 0.2 x 0.2 cm and 0.5 x 0.2 x 0.2 cm. ??The specimen is entirely submitted as (A). Received in Hollande' s fixative labelled Mulligan and AC are two mitchell-pink irregular soft tissue fragments measuring 0.3 x 0.2 x 0.2 cm. ??The specimen is entirely submitted as (B). Received in Hollande' s fixative labelled Mulligan and DC are two mitchell-pink irregular soft tissue fragments measuring 0.4 x 0.3 x 0.2 cm and 0.6 x 0.2 x 0.2 cm. ??The specimen is entirely submitted as (C). Received in Hollande' s fixative labelled Mulligan and rectum are two mitchell-pink 0.6 x 0.2 x 0.2 cm soft tissue fragments. ??The specimen is entirely submitted as (D). ??(Cammie Cruz)/[facility] [place] [place] End of Report [facility] 11/01/2001 11/01/2001 13: 31 EDT Dottie Banegas MD PATHOLOGY ORDERABLES [facility] [address] [place] [address] documented in this encounter Visit Diagnoses Not on filedocumented in this encounter
--- OUTSIDE RECORDS SUMMARY | 2023-12-08 14:55 | XMS_ITS | Encounter Summary ---
Author Organization [facility] Address [address] [place] [address] Care Team Providers Care Degreaser Name Role Phone Unavailable Primary Care Provider Unavailabl e Encounter Details Date Type Department Care Team ([facility] st Contact Info) Description 05/07/2005 Results Only [facility] conversion [address] [place] [address] Kristal Cordova, KLAUS Social History Tobacco Use [...] Priority Date/Time Associated Diagnosis Comments CYTOPATHOLOGY Routine 05/07/2005 0:00 EST documented in this encounter Results * CYTOPATHOLOGY (05/07/2005 0:00 EST) Pathology Report: CYTOPATHOLOGY REPORT Reports generated via electronic interface contain original data; however they are lacking the format of the original report. Caution should be taken when reading/interpreti ng unformatted reports. Name: ? ALPA KUHN ? Accession #: ? [id number] : ? 1955 (Age: 50) ??F ?Collect Date: ? 05/07/2005 Location: ? [facility] ? Receive Date: ? 05/09/2005 Provider: ?KRISTAL CORDOVA MAINTENANCE GROUNDMAN Copy to: ? Specimen/Source: ?ThinPrep Pap Test, Cervix/Endocervix, processed on [employer] ThinPrep Imaging System, with manual evaluation Last Menstrual Period: ? 04/16/05 Previous Gynecologic Pathology: ? LSIL: 01/12/02 Treatment History: ? Colposcopy: 01/24 Miscellaneous treatment: ECC 01/24 neg. Other: ? Additional clinical information: 05/01/03 pap neg. HPVA - HPV testing requested if ASC-US on the current ThinPrep Pap test. ? SPECIMEN ADEQUACY ? Satisfactory for Evaluation - transformation zone component absent GENERAL CATEGORIZATION ? Negative for Intraepithelial Lesion or Malignancy ? Document reviewed and electronically signed by: ? HILARIO Villasenor(ASCP) ? Report Date: ??05/13/2005 13:50 End of Report [facility] 05/07/2005 05/09/2005 Kristal Cordova NP PATHOLOGY ORDERABLES Performing Organization Address City/State/[facility] Co de Phone Number [facility] [address] [place] [address] documented in this encounter Visit Diagnoses Not on filedocumented in this encounter
--- OUTSIDE RECORDS SUMMARY | 2023-12-08 14:55 | XMS_ITS | Encounter Summary ---
Author Organization [facility] Address [address] [place] [address] Care Team Providers Care Gun Mechanic Name Role Phone Unavailable Primary Care Provider Unavailabl e Encounter Details Date Type Department Care Team (Late st Contact Info) Description 11/09/2000 Results Only [facility] conversion [address] [place] [address] Kristal Cordova, KLAUS Social History Tobacco Use [...] Priority Date/Time Associated Diagnosis Comments CYTOPATHOLOGY Routine 11/09/2000 0:00 EDT documented in this encounter Results * CYTOPATHOLOGY (11/09/2000 0:00 EDT) Pathology Report: CYTOPATHOLOGY REPORT Reports generated via electronic interface contain original data; however they are lacking the format of the original report. Caution should be taken when reading/interpreti ng unformatted reports. Name: ? ALPA KUHN ? Accession #: ? [id number] : ? 1955 (Age: 45) ??F ?Collect Date: ? 11/09/2000 Location: ? [facility] ? Receive Date: ? 11/10/2000 Provider: ?KRISTAL CORDOVA LOGISTICS PLANNING MANAGER Copy to: ? Specimen/Source: ?ThinPrep Pap Test, Cervix/Endocervix Last Menstrual Period: ? 10/15/00 ? SPECIMEN ADEQUACY ? Satisfactory for evaluation. GENERAL CATEGORIZATION ? Within Normal Limits ? Document reviewed and electronically signed by: ? QUITA Romero(ASCP) ? Report Date: ??11/11/2000 10:30 End of Report [facility] 11/09/2000 11/10/2000 Kristal Cordova NP PATHOLOGY ORDERABLES [facility] [address] [place] [address] documented in this encounter Visit Diagnoses Not on filedocumented in this encounter
--- OUTSIDE RECORDS SUMMARY | 2023-12-08 14:55 | XMS_ITS | Encounter Summary ---
Author Organization [facility] Address [address] [place] [address] Care Team Providers Care Laborer Ammunition Assembly Name Role Phone Unavailable Primary Care Provider Unavailabl e Encounter Details Date Type Department Care Team ([facility] st Contact Info) Description 05/01/2003 Results Only [facility] conversion [address] [place] [address] Kristal Cordova, KLAUS Social History Tobacco Use [...] Priority Date/Time Associated Diagnosis Comments CYTOPATHOLOGY Routine 05/01/2003 0:00 EST documented in this encounter Results * CYTOPATHOLOGY (05/01/2003 0:00 EST) Pathology Report: CYTOPATHOLOGY REPORT Reports generated via electronic interface contain original data; however they are lacking the format of the original report. Caution should be taken when reading/interpreti ng unformatted reports. Name: ? ALPA KUHN ? Accession #: ? [id number] : ? 1955 (Age: 48) ??F ?Collect Date: ? 05/01/2003 Location: ? [facility] ? Receive Date: ? 05/03/2003 Provider: ?KRISTAL CORDOVA MICROFICHE DUPLICATOR Copy to: ? Specimen/Source: ?ThinPrep Pap Test, Cervix/Endocervix Last Menstrual Period: ? 04/13/2003 ? SPECIMEN ADEQUACY ? Satisfactory for Evaluation - transformation zone component present GENERAL CATEGORIZATION ? Negative for Intraepithelial Lesion or Malignancy ? Document reviewed and electronically signed by: ? Lashae Hardwick, SCT(ASCP) ? Report Date: ??05/08/2003 11:34 End of Report [facility] 05/01/2003 05/03/2003 Kristal Cordova NP PATHOLOGY ORDERABLES [facility] [address] [place] [address] documented in this encounter Visit Diagnoses Not on filedocumented in this encounter
--- OUTSIDE RECORDS SUMMARY | 2023-12-08 14:55 | XMS_ITS | Encounter Summary ---
Author Organization [facility] Address [address] [place] [address] Care Team Providers Care Magazine Designer Name Role Phone Unavailable Primary Care Provider Unavailabl e Encounter Details Date Type Department Care Team (Late st Contact Info) Description 11/04/1999 Results Only [facility] [address] [place] [address] Kristal Cordova, KLAUS Social History Tobacco Use [...] Priority Date/Time Associated Diagnosis Comments CYTOPATHOLOGY Routine 11/04/1999 0:00 EDT documented in this encounter Results * CYTOPATHOLOGY (11/04/1999 0:00 EDT) Pathology Report: CYTOPATHOLOGY REPORT Reports generated via electronic interface contain original data; however they are lacking the format of the original report. Caution should be taken when reading/interpreti ng unformatted reports. Name: ? ALPA KUHN ? Accession #: ? [id number] : ? 1955 (Age: 44) ??F ?Collect Date: ? 11/04/1999 Location: ? [facility] ? Receive Date: ? 11/05/1999 Provider: ?KRISTAL CORDOVA ACQUISITIONS LIBRARIAN Copy to: ? Specimen/Source: ?Conventional Pap Test, Cervix/Endocervix Last Menstrual Period: ? 10/19/99 Previous Gynecologic Pathology: ? Yes: 16 years ago. Treatment History: ? Cryotherapy Other: ? Additional clinical information: WNL since prev abn pap, wnl. ? SPECIMEN ADEQUACY ? Satisfactory for evaluation. GENERAL CATEGORIZATION ? Within Normal Limits ? Document reviewed and electronically signed by: ? Kianna Foss, QUITA(ASCP) ? Report Date: ??11/06/1999 15:03 End of Report [facility] 11/04/1999 11/05/1999 Kristal Cordova NP PATHOLOGY ORDERABLES [facility] [address] [place] [address] documented in this encounter Visit Diagnoses Not on filedocumented in this encounter
--- OUTSIDE RECORDS SUMMARY | 2023-12-08 14:55 | XMS_ITS | Encounter Summary ---
Author Organization [facility] Address [address] [place] [address] Care Team Providers Care Loading Supervisor Name Role Phone Unavailable Primary Care Provider Unavailabl e Encounter Details Date Type Department Care Team (Late st Contact Info) Description 09/08/2001 Results Only [facility] [place] conversion [address] [place] [address] Aníbal Carter MD [address] [place] [id number] Social History Tobacco Use Types Packs/Day Years Used Date Smoking Tobacco: Never Assessed Sex and Gender Information Value Date Recorded Sex Assigned at Not on file Gender Identity Not on file Sexual Orientation Not on file documented as of this encounter Plan of Treatment Not on file documented as of this encounter Procedures Procedure Name Priority Date/Time Associated Diagnosis Comments SURGICAL PATHOLOGY Routine 09/08/2001 0:00 EDT documented in this encounter Results * SURGICAL PATHOLOGY (09/08/2001 0:00 EDT) Pathology Report: SURGICAL PATHOLOGY REPORT Reports generated via electronic interface contain original data; however they are lacking the format of the original report. Caution should be taken when reading/interpreting unformatted reports. Name: ? ALPA KUHN ? Accession #: ? [id number] ? : ? 1955 (Age: 46) ??F ? Collect Date: ? 09/08/2001 ? Location: ? [facility] ? Receive Date: ? 09/09/2001 ? Provider: ANÍBAL CARTER MD Copy to: MONICA CRANDALL MD ? Final Pathologic Diagnosis: A. ?Colon, transverse, biopsy: 1. ?Active chronic colitis, consistent with inflammatory bowel disease, favor ulcerative colitis. ??See comment. B. ?Colon, descending, biopsy: 1. ?Active chronic colitis, consistent with inflammatory bowel disease, favor ulcerative colitis. C. ?Colon, rectum, biopsy: 1. ?Active chronic proctitis, consistent with inflammatory bowel disease, favor ulcerative ? colitis. Comment: ? All biopsies show severe lymphoplasmacytic inflammatory infiltrate in the lamina propria with a dense area located at the lower half of the mucosa. Multiple areas of acute cryptitis and crypt abscesses are identified. ?? The pictures are consistent with inflammatory bowel disease favoring ulcerative colitis. There is no evidence of dysplasia. ??(Dr. Rubio)/[facility] Document reviewed and electronically signed by: Alina Mina MD Report ??Date: 09/13/2001 18:01 By the signature above, the attending physician certifies that he/she has personally conducted a gross and/or microscopic examination of the described specimens and rendered or confirmed the above diagnosis. Specimen(s) Received: A. ?Bx transverse colon (#1) B. ?Bx descending colon (#2) C. ?Bx rectum (#3) Clinical History: ? Diarrhea; rectal bleeding Gross Description: ? Received in Hollande' s fixative labelled Mulligan and biopsy, transverse colon are two, yellow, soft tissue fragments measuring 0.3 x 0.1 x 0.1 cm and 0.2 x 0.2 x 0.1 cm. ??The specimen is entirely submitted as (A). Received in Hollande' s fixative labelled Mulligan and biopsy, descending colon is an aggregate of soft tissue fragments measuring 1.3 x 0.8 x 0.3 cm. The ??specimen is entirely submitted as (B). Received in Hollande' s fixative labelled Mulligan and biopsy, rectum is an aggregate of yellow, soft tissue fragments measuring 1.0 x 0.4 x 0.1 cm. ??The specimen is entirely submitted as (C). ??(Dr. Rubio)/[facility] End of Report [facility] 09/08/2001 09/09/2001 15: 32 EDT Aníbal Carter MD PATHOLOGY ORDERABLE S [facility] [address] [place] [address] documented in this encounter Visit Diagnoses Not on filedocumented in this encounter
--- OUTSIDE RECORDS SUMMARY | 2023-12-08 14:55 | XMS_ITS | Encounter Summary ---
Author Organization [facility] Address [address] [place] [address] Care Team Providers Care Head Waiter/Waitress Name Role Phone Unavailable Primary Care Provider Unavailabl e Encounter Details Date Type Department Care Team (Late st Contact Info) Description 02/08/2002 Results Only [facility] conversion [address] [place] [address] Malena Yi MD [address] [place] [address] [place] [address] Social History Tobacco Use Types Packs/Day Years Used Date Smoking Tobacco: Never Assessed Sex and Gender Information Value Date Recorded Sex Assigned at Not on file Gender Identity Not on file Sexual Orientation Not on file documented as of this encounter Plan of Treatment Not on file documented as of this encounter Procedures Procedure Name Priority Date/Time Associated Diagnosis Comments SURGICAL PATHOLOGY Routine 02/08/2002 0:00 EST documented in this encounter Results * SURGICAL PATHOLOGY (02/08/2002 0:00 EST) Pathology Report: SURGICAL PATHOLOGY REPORT Reports generated via electronic interface contain original data; however they are lacking the format of the original report. Caution should be taken when reading/interpreti ng unformatted reports. Name: ? ALPA KUHN ? Accession #: ? [id number] ? : ? 1955 (Age: 46) ??F ? Collect Date: ? 02/08/2002 ? Location: ? [facility] ? Receive Date: ? 02/09/2002 ? Provider: MALENA YI MD Copy to: MONICA CRANDALL MD ? Final Pathologic Diagnosis: ? Endocervix, curettage: - Scant fragments of superficial squamous epithelium with acute inflammation. See comment. Comment: ? Glandular epithelium is absent, precluding adequate evaluation of endocervix. ??Deeper sections have been examined. ??The referring Pap smear ([id number]), which demonstrated cells compatible with low grade squamous intraepithelial lesion, has been reviewed. ?(Dr. Meier)/[facility] Document reviewed and electronically signed by: BERNARDO EASLEY MD Report ??Date: 02/14/2002 11:14 By the signature above, the attending physician certifies that he/she has personally conducted a gross and/or microscopic examination of the described specimens and rendered or confirmed the above diagnosis. Specimen(s) Received: ? ECC Clinical History: ? Pap ([id number]) ??L TERI Gross Description: ? Received in formalin labeled Mulligan and ECC are multiple very scant fragments of tissue which measure 0.1 x 0.1 x 0.1 cm in aggregate. ??The specimen is submitted entirely in one cassette. ??(Dr. Meier)/[facility] End of Report [facility] 02/08/2002 02/09/2002 15: 27 EST Malena Yi MD PATHOLOGY ORDERABLES [facility] [address] [place] [address] documented in this encounter Visit Diagnoses Not on filedocumented in this encounter
== END 2023-12-08 14:50 | disposition home or self-care (01) ==
LOC: LBN 14:49
PROVIDERS: Visit Provider Nurse Practitioner Family
DX: L08.9 Local infection of the skin and subcutaneous tissue, unspecified (principal)
CPT/HCPCS: 87077; 87070; 87186; 87205

== ENCOUNTER 2024-07-12 18:47 | Outpatient (REF) | payer MEDICARE, MEDICAID, SELFPAY | END 2024-07-12 18:48 | disposition home or self-care (01) | LOC: LBN 18:47 | PROVIDERS: Visit Provider Nurse Practitioner Family | DX: S81.802A Unspecified open wound, left lower leg, initial encounter (principal) | CPT/HCPCS: 87077; 87070; 87205 ==

== ENCOUNTER 2024-10-04 12:22 | Inpatient (IN) | payer MEDICARE, MEDICAID, SELFPAY ==
[2024-10-04] VITALS (33 sets, daily range): BP systolic 88–149; BP diastolic 40–81; PULSE 86–112; RESP 16–38; TEMP 36.4–38.6; O2SAT 85–99
--- NOTE | 2024-10-04 12:30 | DI.US_ITS ---
Exam(s) US LOWER EXTREMITY VENOUS LT EXAM: US LOWER EXTREMITY VENOUS LT CLINICAL HISTORY: hx DVT, recurrent pain. TECHNIQUE: Lower extremity venous ultrasound performed using grayscale, color- flow, and spectral Doppler analysis. COMPARISON: No exams were available for comparison FINDINGS: The exam is limited. The patient was in pain in requested the exam to be stopped. The common femoral vein, profundus femoral vein and femoral vein through the proximal thigh was well-visualized there is no evidence of thrombus. The femoral vein in the mid thigh also appears patent. The veins distal to this area were not imaged due to patient request. IMPRESSION: No evidence of deep venous thrombosis from the common femoral vein through the femoral vein in the mid thigh. DATA REPOSITORY:
--- NOTE | 2024-10-04 12:38 | W.ED.GENAD ---
Discharge Plan Disposition Patient Disposition: Admit to [facility] Condition: Fair Discharge Details Clinical Impression: Sepsis, Anticoagulant long-term use Primary Care Provider: Unknown,Unknown ED Provider: Maricruz Maciel Home Meds and New Rx's Prescriptions: No Action Eliquis 5 mg tablet 5 mg PO BID Patient Comments: TAKE ONE TABLET BY MOUTH TWICE A DAY escitalopram oxalate [Lexapro] 20 mg Tablet 20 mg PO DAILY levothyroxine 100 mcg tablet 100 mcg PO DAILY Patient Comments: TAKE 1 TABLET BY MOUTH DAILY HPI General Mode of arrival: EMS. Date/Time Provider Initiated Documentation: 10/04/24 12:30. Limitations to Documentation: no limitations. Information obtained by: patient, EMS and old records reviewed. HPI Narrative: This is a 69-year-old female patient with a past medical history significant for recurrent thromboembolic disease, with a history of both DVT and PE now on Eliquis, history of GERD, PTSD, peripheral neuropathy, NSTEMI, CHF, CAD, history of MRSA with multiple skin lesions, and hypothyroidism, who is presenting for evaluation of worsening pain in her left lower extremity. She states that this pain has been worsening over the past several weeks and feels very similar to when she has had clots in the past. She states that the pain is located in her medial upper thigh. She has numerous skin lesions due to her MRSA, reports that the 2 on her anterior shins have become quite worse despite her attempts at wound care at home. She has noted weeping, surrounding redness, warmth and pain. She reports some shortness of breath, no chest pain, took some Tylenol for pain this morning but states that she is feeling excessively uncomfortable, which prompted her to call EMS. Last dose of Eliquis was last night. Related Data Home Medications ?Medication ?Instructions ?Recorded ?Confirmed escitalopram oxalate 20 mg tablet 20 mg PO DAILY 06/23/18 10/04/24 (Lexapro) levothyroxine 100 mcg tablet 100 mcg PO DAILY 03/14/20 10/04/24 apixaban 5 mg tablet (Eliquis) 5 mg PO BID 10/04/24 10/04/24 Allergies Allergy/AdvReac Type Severity Reaction Status Date / Time Sulfa (Sulfonamide AdvReac Intermediate headache/ Unverified 10/04/24 13:03 Antibiotics) itching General Stated Complaint: GenMedical ABIODUN: 3 Exam Narrative Exam Narrative: Gen: Awake and alert, in no apparent distress HEENT: Non-icteric sclera Neck: Supple Lungs: No increased work of breathing but the patient is notably tachypneic, no wheezing or rhonchi CV: Appears well perfused, heart with tachycardic rate but regular rhythm, strong distal pulses. Abdomen: Non-distended, soft, nontender to palpation without rigidity, rebound, or guarding MSK: Moves 4 extremities without apparent limitation in ROM. Tenderness to palpation along the medial aspect of the left thigh, no unilateral leg swelling Skin: Visualized skin with extensive areas of small crusted over abscesses, with 2 larger areas of swelling, with surrounding redness, induration, and a small amount of fluctuance over the anterior aspect of the bilateral shins. The area on the left is spontaneously draining a largely serosanguineous fluid Neuro: Normal Gait, no obvious focal deficits or facial asymmetry. Speaks in full, clear sentences. Psych: Appropriate for situation. Course Vital Signs Vital signs: Vital Signs Temperature 38.0 C H 10/04/24 12:28 Pulse 104 H 10/04/24 12:28 Respiratory Rate 21 10/04/24 12:28 Blood Pressure 126/44 L 10/04/24 12:28 Pulse Oximetry 97 10/04/24 12:28 Temperature 38.0 C H 10/04/24 12:28 Temperature Source Oral 10/04/24 12:28 Pulse 104 H 10/04/24 12:28 Respiratory Rate 21 10/04/24 12:28 Blood Pressure 126/44 L 10/04/24 12:28 Blood Pressure Position Supine 10/04/24 12:28 Pulse Oximetry 97 10/04/24 12:28 Oxygen Delivery Method Room Air 10/04/24 12:28 Oxygen Flow Rate 0 10/04/24 12:28 Pain Level 10 10/04/24 12:28 Lab/Test Results Lab/Test Results: 10/04/24 12:32 Blood Blood Culture - Pending 10/04/24 12:32 Blood Blood Culture - Pending Medical Decision Making This is a 69-year-old female patient presenting for evaluation of leg pain, skin lesions, and tachypnea. Of note, the patient does have a low-grade temperature, tachycardia, and tachypnea and meets criteria at this time for sepsis with a presumed skin and soft tissue source. Differential also includes but is not limited to bacteremia, UTI, pneumonia, bronchitis. Certainly considered breakthrough pulmonary embolism and DVT despite the patient's appropriate anticoagulation. Considered metabolic and electrolyte derangement, anemia, dehydration, kidney injury, liver disease. We will obtain an extensive laboratory workup to include blood cultures, CBC, CMP, magnesium, troponin, procalcitonin, lactate, and urinalysis. I will obtain a duplex ultrasound of the left lower extremity as well as a CT pulmonary embolism study. I will provide the patient with a liter of IV fluids, and provide her with a dose of ceftriaxone and vancomycin for initial antibiotic coverage. -I reviewed her laboratory studies, which note a leukocytosis to 16, no anemia or thrombocytopenia. Chemistry panel reveals no significant electrolyte derangements, no evidence of kidney dysfunction, nor liver disease, other than a slightly low magnesium at 1.5 which was repleted intravenously. Initial troponin was negative, lactate is not significantly elevated at 1.7. Duplex ultrasound performed, limited by pain but no DVTs appreciated in the proximal thigh. The CT PE was reviewed by myself and shows no pulmonary embolism or other acute abnormalities. I am most concerned for sepsis secondary to a skin and soft tissue source. The patient did become nauseated after Dilaudid, received Zofran. She requested a nicotine patch which was provided. I reached out to the hospitalist who has graciously accepted this patient for admission. While under my care the patient remained hemodynamically appropriate, she was transferred from our department without incident. Maricruz Maciel MD [facility] All Active Problems Sepsis (Acute) Vaginal atrophy (Acute) Exposure to trichomonas (Acute) Prescription for metronidazole sent to the pharmacy 06/25/2023. Traumatic vaginal laceration (Acute) Repaired in the OR Anticoagulant long-term use (Acute) Postcoital bleeding (Acute) Pulmonary embolism with infarction (Acute) Tubular adenoma (Acute) repeat CE in 3 yrs time Chronic GERD (Acute) Pancreatitis (Chronic) Discharge planning issues (Acute) Ambulatory dysfunction (Acute) Bilateral pulmonary embolism (Acute) Pain and swelling of left upper extremity (Acute) Lung mass (Acute) Pleuritic chest pain (Acute) Abnormal mammogram (Acute) benign tissue Shortness of breath (Acute) Polycythemia (Acute) Chest pain (Acute) Urinary urgency (Acute) Breast lump (Acute) Cannabis use disorder, mild, abuse (Acute) Suicidal ideation (Acute) PTSD (post-traumatic stress disorder) (Acute) Hypokalemia (Acute) Abnormal EKG (Acute) History of pulmonary embolus (PE) (Chronic) DVT prophylaxis (Acute) Discharge planning issues (Acute) Hypomagnesemia (Acute) Peripheral neuropathy (Acute) Chronic pulmonary embolism (Chronic) Pulmonary infarct (Acute) LUQ abdominal pain (Acute) Osteoporosis (Chronic) Lumbar vertebral fracture (Acute) Thoracic vertebral fracture (Acute) Acute hyperkalemia (Acute) VLADIMIR (acute kidney injury) (Acute) AMS (altered mental status) (Acute) Non-ST elevation [place] (NSTEMI) (Acute) Rhabdomyolysis (Acute) Pneumonia (Acute) CHF (congestive heart failure) (Chronic) CAD (coronary artery disease) (Chronic) ASCUS with positive high risk HPV (Acute) Ulcerative colitis (Chronic) Pulmonary emboli (Chronic) Depression (Chronic) Anxiety (Chronic) Hypothyroidism (Chronic) Alcohol abuse (Chronic) Medical History Hx of myocardial infarction pt. states mild [place] in april 2020 Surgical History History of esophagogastroduodenoscopy (EGD) (~11/30/20) History of colonoscopy with polypectomy (~11/30/20) Hx of colonoscopy Hx of section Family History Father Heart disease Paternal Grandmother Cancer Maternal Grandmother Cancer Social History Smoking/Tobacco Use Status: Current every day Tobacco Type: cigarettes Years smoked: 46 Tobacco: How many years used: 46 Smoking risk assessment performed?: Yes Alcohol Intake: current Alcohol Intake frequency: holidays/special occasions only Alcohol type: wine Drug use: Daily Substance use type: marijuana Details: states last used marijuana 11.29.20 Housing: house Current gender identity: female Do you feel safe at home: Yes Female Reproductive History Menstrual Menopause type: natural
[2024-10-04] MEDS: cefTRIAXone 1 GM/50 ML BAG IVPB (13:00)
[2024-10-04] MEDS: Lactated Ringers 500 ML 1000 ML IV (13:00)
[2024-10-04] MEDS: HYDROmorphone 2 MG/ML SYR 0.5 MG IVP ×2 (13:01→14:03)
[2024-10-04] MEDS: Lactated Ringers 500 ML IV (13:11)
[2024-10-04 13:12] LABS: Abs Immature Grans 0.08 10^3/uL (0.0-0.06); HCT 40.0 % (36.0-46.0); HGB 13.0 g/dL (11.2-15.7); Immature Grans % 0.5 %; MCH 30.7 pg (27.0-33.0); MCHC 32.5 % (32.0-36.0); MCV 94 fL (80-95); MPV 9.1 fL (8.0-11.0); Platelet Count 373 10^3/uL (130-400); RBC 4.24 10^6/uL (3.93-5.22); RDW 14.1 % (11.7-14.6); RDW-SD 48.5 fL; WBC 16.00 10^3/uL (4.4-10.8)
[2024-10-04 13:36] LABS: ALT 11 U/L (14-59); AST 14 U/L (15-37); Albumin 2.9 g/dL (3.4-5.0); Alkaline Phosphatase 85 U/L (46-116); Anion Gap 8.3 mmol/L (3-11); BUN 14 mg/dL (7-18); Bilirubin, Total 0.6 mg/dL (0.2-1.0); CO2 25.7 mmol/L (21.0-32.0); Calcium 9.1 mg/dL (8.5-10.1); Chloride 102 mmol/L (98-107); Estimated GFR 70.07 (mL/min/1.73m2); Glucose 129 mg/dL (74-106); Magnesium 1.5 mg/dL (1.8-2.4); Potassium 3.6 mmol/L (3.5-5.1); Sodium 136 mmol/L (136-145); Total Protein 7.5 g/dL (6.4-8.2); Troponin I 5 ng/L (<or=51)
[2024-10-04] MEDS: Omnipaque 350 MG/ML 100 ML BTL IJ (13:51)
[2024-10-04] MEDS: Normal Saline - Diluent 50 ML VIAL IJ (13:52)
--- NOTE | 2024-10-04 14:00 | DI.CT_ITS ---
Exam(s) CT CHEST PE CTA EXAM: CT CHEST PE CTA CLINICAL HISTORY: tachypnea and tachycardia, hx PE. TECHNIQUE: Imaging Protocol: Axial CT angiography was performed with multi- slice acquisition and multi-planar and/or 3D reconstructions. Lung Computer Aided Detection (CAD) was utilized. CONTRAST MATERIAL: Intravenous: Omnipaque 350 contrast volume:75 mL COMPARISON: CT CT CHEST PE ABD PELVIS W from 03/14/[address] CHEST WO from 10/23/2020 FINDINGS: Tracheobronchial tree: Patent where visualized. No bronchiectasis. Pulmonary parenchyma: There is dependent atelectasis in the lung bases. Calcified granulomas are seen in the right lower lobe. There is scarring or atelectasis seen in the lung bases. No focal consolidating infiltrates are present. Pulmonary Arteries: There is a stable area of decreased attenuation within or adjacent to a right lower lobe pulmonary artery branch. This is unchanged since 2019. There is no evidence of acute pulmonary artery emboli. Mediastinum and Eli: No dominant adenopathy or fluid collection. The esophagus is unremarkable. Stable mediastinal lymph nodes. Visualized thyroid gland: Unremarkable. Pleura: No effusion or pneumothorax. Heart: The heart is not dilated. Mild single-vessel coronary artery calcification is present. No pericardial effusion. Aorta: Thoracic aorta non-dilated. No evidence of dissection. Atherosclerotic calcification is present. Upper abdomen: Unremarkable. Soft tissues: Unremarkable. Bones: Within normal limits for the patient's age.There are stable compression fracture deformities of T9, T12 and L2. There is also stable mild compression of the superior endplate of L3. IMPRESSION: 1. No evidence of acute pulmonary embolism, thoracic aortic dissection or aneurysm. 2. There are no focal consolidating infiltrates. 3. Stable lower thoracic and upper lumbar spine compression deformities. RADIATION DOSE DELIVERED: 390.14mGy.cm Total DLP DATA REPOSITORY: All CT scans at this facility are submitted to the National Radiology Data Registry (NRDR) Dose Index Registry (DIR) with the [employer] (ACR). RADIATION OPTIMIZATION: All CT scans at this facility use at least one of these dose optimization techniques: automated exposure control; mA and/or kV adjustment per patient size (includes targeted exams where dose is matched to clinical indication); or iterative reconstruction.
[2024-10-04 14:02] LABS: INR 1.0 (0.9-1.1); Prothrombin Time 10.4 sec (9.1-11.1)
[2024-10-04] MEDS: VANCOMYCIN/WATER (PEG) 1.5 GM/300 ML BAG IVPB (14:02)
[2024-10-04 14:03] LABS: Procalcitonin 0.17 ng/mL
[2024-10-04] MEDS: Ondansetron 4 MG/2 ML VIAL IVP (14:09)
[2024-10-04] MEDS: MAGNESIUM SULFATE 2 GM/50 ML BAG IV_INF (14:12)
[2024-10-04 15:05] LABS: Troponin I 5 ng/L (<or=51)
--- NOTE | 2024-10-04 15:43 | HPE_ITS ---
Date of service: 10/04/24 Time of Service: 15:43 Assessment and Plan Assessment and plan (1) Sepsis: Status: Acute Assessment and plan: Presumed source: worsening bilateral anterior fulton skin lesions with fluctuance and drainage. Plan: * Admit to hospital for IV antibiotic therapy (started ceftriaxone + vancomycin). * Obtained blood cultures x2 sets before antibiotics. * Monitor vital signs and labs closely (CBC, CMP, lactate, procalcitonin). * Wound care consult and surgical evaluation for possible incision and drainage if needed. * Continue pain management, avoid opioids if possible due to nausea. * Monitor for clinical improvement or deterioration. * IV fluids initiated to maintain hydration and support circulation. * Oxygen saturation adequate on room air; monitor for respiratory status. 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 Worsening leg pain concerning for possible DVT, plus mild shortness of breath. : Duplex ultrasound of left lower extremity (performed, negative for proximal DVT). CT pulmonary embolism study (performed, negative). Continue anticoagulation with Eliquis as per hematology guidance. (2) Wound of lower extremity: Status: Acute Assessment and plan: Severe pain (10/10) in left thigh and skin lesions. * Continue Tylenol and consider non-opioid analgesics if tolerated. * Avoid opioids if nausea present; administer antiemetics as needed (Zofran given after Dilaudid-induced nausea). (3) Skin infection: Status: Acute Assessment and plan: Admit to hospital for IV antibiotic therapy (started ceftriaxone + vancomycin). Obtain blood cultures x2 sets before antibiotics. Monitor vital signs and labs closely (CBC, CMP, lactate, procalcitonin). Wound care consult and surgical evaluation for possible incision and drainage if needed. Continue pain management, avoid opioids if possible due to nausea. Monitor for clinical improvement or deterioration. (4) Anxiety: Status: Chronic Assessment and plan: Continue home meds Lorazepam prn (5) Hypothyroidism: Status: Chronic Assessment and plan: Continue home meds (6) Alcohol abuse: Status: Chronic Assessment and plan: Last alcohol (7) Depression: Status: Chronic Assessment and plan: Continue home meds (8) CAD (coronary artery disease): Status: Chronic (9) CHF (congestive heart failure): Status: Chronic (10) Hypomagnesemia: Status: Resolved Assessment and plan: Mild hypomagnesemia (1.5 mg/dL) noted. * IV magnesium repletion administered. * Monitor electrolyte levels daily and replete as needed. 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 The pain is localized to the medial upper thigh and resembles prior clot-related pain. She also reports worsening skin lesions on anterior shins, characterized by increased weeping, redness, warmth, and pain. Additionally, she notes some shortness of breath but denies chest pain. She took Tylenol this morning with minimal relief and presented with a temperature of 38.0?C, tachycardia, and tachypnea. Last dose of Eliquis was the previous night. Review of Systems Narrative: Constitutional: Fever, malaise Cardiovascular: Palpitations, no chest pain Respiratory: Mild shortness of breath, no cough or wheezing Skin: Multiple MRSA-related skin lesions with new weeping and redness Neurologic: No focal deficits Gastrointestinal: No nausea, vomiting, or abdominal pain Psychiatric: History of PTSD; currently appropriate mood and affect PFSH All Active Problems Skin infection (Acute) Wound of lower extremity (Acute) Sepsis (Acute) Vaginal atrophy (Acute) Exposure to trichomonas (Acute) Prescription for metronidazole sent to the pharmacy 06/25/2023. Traumatic vaginal laceration (Acute) Repaired in the OR Anticoagulant long-term use (Acute) Postcoital bleeding (Acute) Pulmonary embolism with infarction (Acute) Tubular adenoma (Acute) repeat CE in 3 yrs time Chronic GERD (Acute) Pancreatitis (Chronic) Discharge planning issues (Acute) Ambulatory dysfunction (Acute) Bilateral pulmonary embolism (Acute) Pain and swelling of left upper extremity (Acute) Lung mass (Acute) Pleuritic chest pain (Acute) Abnormal mammogram (Acute) benign tissue Shortness of breath (Acute) Polycythemia (Acute) Chest pain (Acute) Urinary urgency (Acute) Breast lump (Acute) Cannabis use disorder, mild, abuse (Acute) Suicidal ideation (Acute) PTSD (post-traumatic stress disorder) (Acute) Hypokalemia (Acute) Abnormal EKG (Acute) History of pulmonary embolus (PE) (Chronic) DVT prophylaxis (Acute) Discharge planning issues (Acute) Hypomagnesemia (Acute) Peripheral neuropathy (Acute) Chronic pulmonary embolism (Chronic) Pulmonary infarct (Acute) LUQ abdominal pain (Acute) Osteoporosis (Chronic) Lumbar vertebral fracture (Acute) Thoracic vertebral fracture (Acute) Acute hyperkalemia (Acute) VLADIMIR (acute kidney injury) (Acute) AMS (altered mental status) (Acute) Non-ST elevation [place] (NSTEMI) (Acute) Rhabdomyolysis (Acute) Pneumonia (Acute) CHF (congestive heart failure) (Chronic) CAD (coronary artery disease) (Chronic) ASCUS with positive high risk HPV (Acute) Ulcerative colitis (Chronic) Pulmonary emboli (Chronic) Depression (Chronic) Anxiety (Chronic) Hypothyroidism (Chronic) Alcohol abuse (Chronic) Medical History Hx of myocardial infarction pt. states mild [place] in april 2020 Surgical History History of esophagogastroduodenoscopy (EGD) (~11/30/20) History of colonoscopy with polypectomy (~11/30/20) Hx of colonoscopy Hx of section Family History Father Heart disease Paternal Grandmother Cancer Maternal Grandmother Cancer Social History Smoking/Tobacco Use Status: Current every day Tobacco Type: cigarettes Years smoked: 46 Tobacco: How many years used: 46 Smoking risk assessment performed?: Yes Alcohol Intake: current Alcohol Intake frequency: holidays/special occasions only Alcohol type: wine Drug use: Daily Substance use type: marijuana Details: states last used marijuana 11.29.20 Housing: apartment Current gender identity: female Do you feel safe at home: Yes Female Reproductive History Menstrual Menopause type: natural Meds Allergies and Home Medications Allergies Allergy/AdvReac Type Severity Reaction Status Date / Time Sulfa (Sulfonamide AdvReac Intermediate headache/ Unverified 10/04/24 13:03 Antibiotics) itching Home Medications ?Medication ?Instructions ?Recorded ?Confirmed ?Type escitalopram oxalate 20 mg tablet 20 mg PO DAILY 06/2310/04/24 History (Lexapro) levothyroxine 100 mcg tablet 100 mcg PO DAILY 03/14/20 10/04/24 History apixaban 5 mg tablet (Eliquis) 5 mg PO BID 10/04/24 History Exam Narrative Exam Narrative: General: Awake, alert, in no apparent distress HEENT: Non-icteric sclera Neck: Supple, no lymphadenopathy Lungs: Tachypneic , no wheezing or rhonchi, no increased work of breathing Cardiovascular: Tachycardic, regular rhythm, strong distal pulses, well perfused Abdomen: Soft, non-tender, non-distended, no guarding or rebound Musculoskeletal: Tenderness to palpation medial left thigh, no unilateral swelling or deformity, full range of motion Skin: Extensive small crusted abscesses, two larger erythematous, indurated, swollen areas over bilateral anterior shins; left fulton lesion draining serosanguineous fluid Neurologic: Normal gait, no focal deficits Psychiatric: Appropriate mood and affect Results Labs 10/04/24 12:05 10/04/24 12:05 Labs: Laboratory Results - last 24 hr 10/04/24 10/04/24 10/04/24 12:05 12:45 14:42 WBC 16.00 H RBC 4.24 Hgb 13.0 Hct 40.0 MCV 94 MCH 30.7 MCHC 32.5 RDW 14.1 Plt Count 373 MPV 9.1 Immature Gran % 0.5 Neutrophils % 92.7 Lymphocytes % 3.8 Monocytes % 2.8 Eosinophils % 0.0 Basophils % 0.2 Nucleated RBC % 0.0 Absolute Neutrophils 14.83 H Absolute Lymphocytes 0.61 L Absolute Monocytes 0.45 Absolute Eosinophils 0.00 Absolute Basophils 0.03 PT 10.4 INR 1.0 VBG Lactate 1.7 Sodium 136 Potassium 3.6 Chloride 102 Carbon Dioxide 25.7 Anion Gap 8.3 BUN 14 Creatinine 0.9 Est GFR (CKD-EPI 2020) 70.07 Glucose 129 H Calcium 9.1 Magnesium 1.5 L Total Bilirubin 0.6 AST 14 L ALT 11 L Alkaline Phosphatase 85 Troponin I 5 5 Total Protein 7.5 Albumin 2.9 L Procalcitonin 0.17 Last Vital Signs Temp 38.0 C H 10/04/24 12:38 Pulse 100 H 10/04/24 15:10 Resp 33 H 10/04/24 15:10 BP 140/67 10/04/24 15:01 Pulse Ox 91 L 08/12/25 15:10 PAWSS Have you Been Recently Intoxicated or Drunk Within the Last 30 days?: No Have you Ever Experienced Previous Episodes of Alcohol Withdrawal?: No Have you ever Experienced Withdrawal Seizures?: No Have you ever Experienced Delirium Tremens(DT)s?: No Have you ever undergone Alcohol Rehabilitation Treatment (i.e, inpt ot outpatient treatment programs)?: No Have you ever Experienced Blackouts?: No Have you ever Combined Alcohol with other Downers within the last 90 days?: No Have you ever Combined Alcohol with any other Substance of Abuse during the last 90 days?: No Positive Blood Alcohol level on Presentation? [PCS.BAL]: No Evidence of Increased Autonomic Activity (i.e. HR>120, tremor, sweating, agitation, nausea)?: No Result: 0 Time Spent Time spent with Patient: 55-74 minutes Time was spent: preparing to see the patient(eg.review tests), obtaining and/or reviewing separately otained hiistory, ordering medications,tests, procedures, referring, communicating with other health home care chaplain, indepentently interpreting results, counseling the patient and care coordination
--- NOTE | 2024-10-04 16:07 | W.PC.ACHO ---
Registration Status: ADM IN Primary Language: Preferred Language: Bulgarian ED Information & Data Chief Complaint GenMedical 10/04/24 12:38 Other Complaint Cellulitis 10/04/24 12:28 Triage Note Patient is currently on 10/04/24 12:28 Eliquis for left leg blood clots and worsening of her MRSA lesions in her legs and arms. Progressive consistent pain for the past coupe of weeks Medical / Surgical History (Last Reviewed 06/06/23 @ 14:38 by Tom Vallejo MD) Hx of myocardial infarction (Last Reviewed 06/06/23 @ 14:38 by Tom Vallejo MD) History of esophagogastroduodenoscopy (EGD) (~11/30/20) History of colonoscopy with polypectomy (~11/30/20) Hx of colonoscopy Hx of section Most Recent Vital Signs Temperature 37.7 C H 10/04/24 15:39 Temperature Source Oral 10/04/24 12:38 Pulse 100 H 10/04/24 15:39 Pulse 100 H 10/04/24 15:10 Respiratory Rate 25 H 10/04/24 15:39 Respiratory Effort Labored 10/04/24 15:39 Respiratory Depth Shallow 10/04/24 15:39 Respiratory Pattern Tachypnea 10/04/24 15:39 Blood Pressure 109/60 10/04/24 15:39 Blood Pressure Mean 90 10/04/24 15:01 Blood Pressure Position Supine 10/04/24 12:38 Pulse Oximetry 97 10/04/24 15:39 Oxygen Delivery Method Room Air 10/04/24 15:39 Oxygen Flow Rate 0 10/04/24 15:39 Pain Level 8 10/04/24 15:39 Allergies Sulfa (Sulfonamide Antibiotics) Adverse Reaction (Intermediate, Unverified 10/04/24 13:03) headache/ itching IV IV Catheter Type [Right Wrist] Peripheral IV IV Catheter Type [Left diffusic Antecubital] IV Catheter Gauge [Right Wrist 18 ] IV Catheter Gauge [Left 20 Antecubital] Diet Orders Category Date Time Status Heart Healthy Eating [DIET] Nutrition 10/04/24 Dinner Active Diagnostics 10/04/24 10/04/24 10/04/24 Range/Units 15:32 14:42 12:45 WBC (4.4-10.8) 10^3/uL RBC (3.93-5.22) 10^6/uL Hgb (11.2-15.7) g/dL Hct (36.0-46.0) % MCV (80-95) fL MCH (27.0-33.0) pg MCHC (32.0-36.0) % RDW (11.7-14.6) % Plt Count (130-400) 10^3/uL MPV (8.0-11.0) fL Immature Gran % % Neutrophils % % Lymphocytes % % Monocytes % % Eosinophils % % Basophils % % Nucleated RBC % (0.0-0.3) % Absolute Neutrophils (1.2-6.7) 10^3/uL Absolute Lymphocytes (1.2-3.4) 10^3/uL Absolute Monocytes (0.1-0.8) 10^3/uL Absolute Eosinophils (0.0-0.7) 10^3/uL Absolute Basophils (0.0-0.2) 10^3/uL PT (9.1-11.1) sec INR (0.9-1.1) VBG Lactate 1.7 (<or=2.0) mmol/L Sodium (136-145) mmol/L Potassium (3.5-5.1) mmol/L Chloride (98-107) mmol/L Carbon Dioxide (21.0-32.0) mmol/L Anion Gap (3-11) mmol/L BUN (7-18) mg/dL Creatinine (0.55-1.02) mg/dL Est GFR (CKD-EPI 2020) (mL/min/1.73m2) Glucose (74-106) mg/dL Calcium (8.5-10.1) mg/dL Magnesium (1.8-2.4) mg/dL Total Bilirubin (0.2-1.0) mg/dL AST (15-37) U/L ALT (14-59) U/L Alkaline Phosphatase (46-116) U/L Troponin I Pending 5 (<or=51) ng/L Total Protein (6.4-8.2) g/dL Albumin (3.4-5.0) g/dL Procalcitonin ng/mL 10/04/24 Range/Units 12:05 WBC 16.00 H (4.4-10.8) 10^3/uL RBC 4.24 (3.93-5.22) 10^6/uL Hgb 13.0 (11.2-15.7) g/dL Hct 40.0 (36.0-46.0) % MCV 94 (80-95) fL MCH 30.7 (27.0-33.0) pg MCHC 32.5 (32.0-36.0) % RDW 14.1 (11.7-14.6) % Plt Count 373 (130-400) 10^3/uL MPV 9.1 (8.0-11.0) fL Immature Gran % 0.5 % Neutrophils % 92.7 % Lymphocytes % 3.8 % Monocytes % 2.8 % Eosinophils % 0.0 % Basophils % 0.2 % Nucleated RBC % 0.0 (0.0-0.3) % Absolute Neutrophils 14.83 H (1.2-6.7) 10^3/uL Absolute Lymphocytes 0.61 L (1.2-3.4) 10^3/uL Absolute Monocytes 0.45 (0.1-0.8) 10^3/uL Absolute Eosinophils 0.00 (0.0-0.7) 10^3/uL Absolute Basophils 0.03 (0.0-0.2) 10^3/uL PT 10.4 (9.1-11.1) sec INR 1.0 (0.9-1.1) VBG Lactate (<or=2.0) mmol/L Sodium 136 (136-145) mmol/L Potassium 3.6 (3.5-5.1) mmol/L Chloride 102 (98-107) mmol/L Carbon Dioxide 25.7 (21.0-32.0) mmol/L Anion Gap 8.3 (3-11) mmol/L BUN 14 (7-18) mg/dL Creatinine 0.9 (0.55-1.02) mg/dL Est GFR (CKD-EPI 2020) 70.07 (mL/min/1.73m2) Glucose 129 H (74-106) mg/dL Calcium 9.1 (8.5-10.1) mg/dL Magnesium 1.5 L (1.8-2.4) mg/dL Total Bilirubin 0.6 (0.2-1.0) mg/dL AST 14 L (15-37) U/L ALT 11 L (14-59) U/L Alkaline Phosphatase 85 (46-116) U/L Troponin I 5 (<or=51) ng/L Total Protein 7.5 (6.4-8.2) g/dL Albumin 2.9 L (3.4-5.0) g/dL Procalcitonin 0.17 ng/mL 10/04/24 12:50 Blood Culture - Pending Blood 10/04/24 12:05 Blood Culture - Pending Blood Intake and Output - 24 Hour Total 10/04/24 12:18 thru 10/04/24 15:39 Intake Total 1060 Balance 1060 Weight 68.9 kg Intake: IV 1060 Falls Risk Assessment History of Falls No History 10/04/24 15:39 Contributing Factors Unstable 10/04/24 14:46 Ambulatory Aids Independent 10/04/24 15:39 Tubes/Lines None 10/04/24 15:39 Gait Evaluation No gait disturbance 10/04/24 15:39 Cognition No cognitive impairment 10/04/24 15:39 Fall Total Score 0 10/04/24 15:39 Level of Risk Standard/Low Risk 10/04/24 15:39 Problems Sepsis (Acute) Cannabis use disorder, mild, abuse (Acute) CHF (congestive heart failure) (Chronic) CAD (coronary artery disease) (Chronic) Depression (Chronic) Anxiety (Chronic) Hypothyroidism (Chronic) Alcohol abuse (Chronic) v v v v v v v v v Sending and/or Receiving Nurses: Please use comment section below to note any information pertinent to the patient hand-off not included above. Information / Comments: This nurse received report from ED patient oriented, very anxious, MRSA in wounds, she has it all around the body, consult with wound care nurse, patient incontinent, wounds covered with bandages. Report received from: LISA CANCHOLA
[2024-10-04] MEDS: Acetaminophen 325 MG TAB 650 MG PO ×2 (16:59→23:47)
[2024-10-04] MEDS: Ketorolac 15 MG/ML VIAL IVP (17:55)
[2024-10-04 17:57] LABS: Troponin I 13 ng/L (<or=51)
[2024-10-04 18:35] LABS: Glucose Negative (Negative)
[2024-10-04 18:43] LABS: C & S Indicated? No; RBC 0-2 HPF (0-2); WBC 0-2 HPF (0-5)
[2024-10-04] MEDS: Normal Saline Flush 10 ML SYR IVP (20:19)
[2024-10-05] VITALS (38 sets, daily range): BP systolic 82–106; BP diastolic 38–59; PULSE 72–90; RESP 16–35; TEMP 36.4–39; O2SAT 92–98
[2024-10-05] MEDS: Levothyroxine 100 MCG TAB PO (05:36)
[2024-10-05] MEDS: Acetaminophen 325 MG TAB 650 MG PO ×2 (05:36→15:53)
[2024-10-05] MEDS: Ondansetron 4 MG/2 ML VIAL IVP ×4 (06:41→21:56)
[2024-10-05] MEDS: HYDROmorphone 2 MG/ML SYR 0.5 MG IVP ×4 (06:41→21:56)
[2024-10-05 06:44] LABS: Abs Immature Grans 0.06 10^3/uL (0.0-0.06); HCT 36.8 % (36.0-46.0); HGB 12.5 g/dL (11.2-15.7); Immature Grans % 0.5 %; MCH 32.0 pg (27.0-33.0); MCHC 34.0 % (32.0-36.0); MCV 94 fL (80-95); MPV 8.7 fL (8.0-11.0); Platelet Count 318 10^3/uL (130-400); RBC 3.91 10^6/uL (3.93-5.22); RDW 14.5 % (11.7-14.6); RDW-SD 50.1 fL; WBC 11.73 10^3/uL (4.4-10.8)
[2024-10-05 06:59] LABS: Anion Gap 9.7 mmol/L (3-11); BUN 13 mg/dL (7-18); CO2 24.3 mmol/L (21.0-32.0); Calcium 8.4 mg/dL (8.5-10.1); Chloride 101 mmol/L (98-107); Estimated GFR 94.73 (mL/min/1.73m2); Glucose 86 mg/dL (74-106); Magnesium 2.0 mg/dL (1.8-2.4); Potassium 3.4 mmol/L (3.5-5.1); Sodium 135 mmol/L (136-145)
[2024-10-05 07:44] LABS: C-Reactive Protein > 25.00 mg/dL (<or=0.5)
[2024-10-05] MEDS: Folic Acid 1 MG TAB PO (08:04)
[2024-10-05] MEDS: Escitalopram 20 MG TAB PO (08:04)
[2024-10-05] MEDS: Thiamine 100 MG TAB PO (08:04)
[2024-10-05] MEDS: Normal Saline Flush 10 ML SYR IVP ×5 (08:05→21:58)
[2024-10-05] MEDS: Multivitamin TAB 1 TAB PO (08:05)
[2024-10-05] MEDS: Potassium Chloride 20 MEQ TABCR 40 MEQ PO (09:31)
[2024-10-05] MEDS: Prochlorperazine 10 MG/2 ML VIAL 5 MG IVP (09:57)
[2024-10-05] MEDS: Apixaban 5 MG TAB PO (09:57)
[2024-10-05] MEDS: Normal Saline 1,000 ML 125 ML IV ×2 (09:58→21:57)
[2024-10-05] MEDS: VANCOMYCIN/WATER (PEG) 1 GM/200 ML BAG IVPB (10:07)
[2024-10-05] MEDS: Normal Saline 500 ML 1000 ML IV (10:11)
--- NOTE | 2024-10-05 11:38 | INITIAL_ITS ---
Date of service: 10/05/24 Time of Service: 11:38 Care Management Initial Assmt Initial Assessment Reason for Hospitalization: Sepsis, infected skin lesions Functional Status/Living Situation Patient Presentation: Martina is a 69 year old female residing alone in an apartment in [facility]. She has two adult sons, one living in [facility], and the other in [place]. She identifies her children as her primary supports, also has a few close friends who live locally. Martina uses [facility] for transportation and is independent with her ADLs at baseline. Martina has been followed by Bethanie Foss at [facility]. She reports plans to transfer her care to [facility] in the near future, as Bethanie is leaving the practice. Martina reports that she does not have any community needs and is familar with [facility] should something come up in the future. Town of Residence: [facility] [place] [facility] Resides with: Alone Significant Other/Family: Local (two adult sons, one living in [place] [facility] [place] [facility] [place], and the other in [place]) Natural Supports: Sons and close friends Employment Status: Retired Instrumental Activities of Daily Living (ADLs): Independent (ADLSs) and Requires support with Transportation Medications Medication Management: No Issues/Barriers identified Physical Functioning/Mobility Assistive Device: None Advance Directives Advance Directives: Do you have an Advance Directive: N , 13:05 AD On File at [facility]: N 06/07/12, 09:01 Date Asked 10/04/24 10/04/24, 12:29 AD Date Reviewed COLST On File at [facility] No 03/14/20, 16:59 COLST Date Scanned Code Status Resuscitation Status Full Code Portal Pt does not currently have a portal and education provided: Yes Insurance Coverage/Financial Issues Insurance: AARP/UN.[facility] - [id number] Medicaid of [place] - [id number] Care Team Visit Care Team Role Provider Type Letty Resendiz NP MD [facility] STAFF PHYSICIAN Unknown Unknown Primary Care Provider STAFF PHYSICIAN Cate Argueta MD Other Providers [facility] STAFF PHYSICIAN Maricruz Maciel MD Emergency Provider [facility] STAFF PHYSICIAN Ron Beyer MD Admit Provider [facility] STAFF PHYSICIAN Attending Provider Discharge Potential Discharge Needs: PCP F/U Appt Anticipated Barriers to Discharge: None Identified Patient/Family Education Needs: Review discharge instructions, discuss Ask Me Three Transportation: [facility] Plan: Anticipate Martina will be discharged home once medically cleared by provider. She will follow up with her PCP, community providers, and discharge plan of care as directed. Martina will be driven home by [facility] to be coordinated by CM when ready. CM will continue to support Martina and assess for discharge planning needs. Social Determinants of Health Screening Social Determinants of health last assessed in clinic: 10/05/24 Will the Patient Participate in the Screening?: Yes Do you worry about having a steady place to live?: choose not to answer Problems where you live: no known problems In the past 12 months, have you had to go without electric, gas, oil or water in your home?: choose not to answer 1. Within the past 12 months, we worried whether our food would run out before we got money to buy more.: Never true 2. Within the past 12 months, the food we bought just didn't last and we didn't have money to get more.: Never true Has lack of transportation kept you from medical appointments or from doing things needed for daily living?: choose not to answer Has anyone in your life made you feel unsafe or unsupported?: choose not to answer How hard is it for you to pay for the very basics like food, housing, medical care, and heating? Would you say it is:: Somewhat hard Do you want help finding or keeping work or a job?: Yes, help keeping work If for any reason you need help with day-to-day activities such as bathing, preparing meals, shopping, managing finances, etc., do you get the help you need?: I could use a little more help How often do you feel lonely or isolated from those around you?: Sometimes Do you speak a language other than [place]ore[place] at home?: No Does the patient want assistance with any of the above?: No Health Related Social Needs Health related social needs: material hardship(utilities) (Z59.12), problems related to housing/economic circumstances (Z59.89), problems finding work (Z56.9), problems with daily activities (Z73.9) and feeling lonely/isolated (Z60.8) Health related social needs details: wound care PFSH All Active Problems Skin infection (Acute) Wound of lower extremity (Acute) Sepsis (Acute) Vaginal atrophy (Acute) Exposure to trichomonas (Acute) Prescription for metronidazole sent to the pharmacy 06/25/2023. Traumatic vaginal laceration (Acute) Repaired in the OR Anticoagulant long-term use (Acute) Postcoital bleeding (Acute) Pulmonary embolism with infarction (Acute) Tubular adenoma (Acute) repeat CE in 3 yrs time Chronic GERD (Acute) Pancreatitis (Chronic) Discharge planning issues (Acute) Ambulatory dysfunction (Acute) Bilateral pulmonary embolism (Acute) Pain and swelling of left upper extremity (Acute) Lung mass (Acute) Pleuritic chest pain (Acute) Abnormal mammogram (Acute) benign tissue Shortness of breath (Acute) Polycythemia (Acute) Chest pain (Acute) Urinary urgency (Acute) Breast lump (Acute) Cannabis use disorder, mild, abuse (Acute) Suicidal ideation (Acute) PTSD (post-traumatic stress disorder) (Acute) Hypokalemia (Acute) Abnormal EKG (Acute) History of pulmonary embolus (PE) (Chronic) DVT prophylaxis (Acute) Discharge planning issues (Acute) Hypomagnesemia (Acute) Peripheral neuropathy (Acute) Chronic pulmonary embolism (Chronic) Pulmonary infarct (Acute) LUQ abdominal pain (Acute) Osteoporosis (Chronic) Lumbar vertebral fracture (Acute) Thoracic vertebral fracture (Acute) Acute hyperkalemia (Acute) VLADIMIR (acute kidney injury) (Acute) AMS (altered mental status) (Acute) Non-ST elevation MN (NSTEMI) (Acute) Rhabdomyolysis (Acute) Pneumonia (Acute) CHF (congestive heart failure) (Chronic) CAD (coronary artery disease) (Chronic) ASCUS with positive high risk HPV (Acute) Ulcerative colitis (Chronic) Pulmonary emboli (Chronic) Depression (Chronic) Anxiety (Chronic) Hypothyroidism (Chronic) Alcohol abuse (Chronic) Medical History Hx of myocardial infarction pt. states mild MN in april 2020 Surgical History History of esophagogastroduodenoscopy (EGD) (~11/30/20) History of colonoscopy with polypectomy (~11/30/20) Hx of colonoscopy Hx of section Family History Father Heart disease Paternal Grandmother Cancer Maternal Grandmother Cancer Social History Smoking/Tobacco Use Status: Current every day Tobacco Type: cigarettes Years smoked: 46 Tobacco: How many years used: 46 Smoking risk assessment performed?: Yes Alcohol Intake: current Alcohol Intake frequency: holidays/special occasions only Alcohol type: wine Drug use: Daily Substance use type: marijuana Details: states last used marijuana 10.7.21 Housing: apartment Current gender identity: female Do you feel safe at home: Yes Female Reproductive History Menstrual Menopause type: natural
--- NOTE | 2024-10-05 11:39 | PHA.REVIEW2 ---
Pharmacy Admission Review Admission Clinical Review Admission Pharmacy Review: Skin infection (Acute) Wound of lower extremity (Acute) Sepsis (Acute) Sulfa (Sulfonamide Antibiotics) Adverse Reaction (Intermediate, Unverified 10/04/24 13:03) headache/ itching Resuscitation Status Full Code Height 5 ft 4 in Weight 70.2 kg Pharmacy Admission Review Renal Dosing Renal Dosing: BUN 13 mg/dL (7-18) 10/05/24 06:23 Creatinine 0.7 mg/dL (0.55-1.02) 10/05/24 06:23 Medications needing adjustments: Reviewed (CrCl 52.48 mL/min) List of meds needing interventions: Current medications are okay Anticoagulation Anticoagulation: Hgb 12.5 g/dL (11.2-15.7) 10/05/24 06:23 Hct 36.8 % (36.0-46.0) 10/05/24 06:23 Plt Count 318 10^3/uL (130-400) 10/05/24 06:23 INR 1.0 (0.9-1.1) 10/04/24 12:05 Creatinine 0.7 mg/dL (0.55-1.02) 10/05/24 06:23 DVT Prophylaxis: Intervened (Has Eliquis on home med list but wasn't ordered, reached out to provider who put in order) Medications: Apixaban (5mg BID) Opiate Usage Evaluate Pain Scale/Pains Meds: Reviewed (hydromorphone 0.5mg IVP q4h PRN - 1.5mg/24hrs) Scheduled Bowel Reg ordered if on Opiates?: No (PRN Miralax) Relevant Labs Relevant Labs: Sodium 135 mmol/L (136-145) L 10/05/24 06:23 Potassium 3.4 mmol/L (3.5-5.1) L 10/05/24 06:23 Chloride 101 mmol/L (98-107) 10/05/24 06:23 Magnesium 2.0 mg/dL (1.8-2.4) 10/05/24 06:23 C-Reactive Protein > 25.00 mg/dL (<or=0.5) H 10/05/24 06:23 Electrolytes, C-Reactive P, ESR: Reviewed (potassium 40mEq PO now one given this morning) Cardiac Review Cardiac Review: Troponin I 13 ng/L (<or=51) 10/04/24 17:20 Blood Pressure 105/39 1129 Blood Pressure 89/56 0803 Blood Pressure 82/40 0746 Blood Pressure 100/53 0332 Blood Pressure 92/38 0056 BP, HR, EF%: Reviewed (HR WNL) QTc Review QTc: Reviewed (424 from 10/12/20 - most recent EKG on file) IV to PO Switch IV Medications: Reviewed (ceftriaxone, hydromorphone, ondansetron and vancomycin) Home Meds Home Med List reviewed: Reviewed Current Meds Current Medication Order Review: Reviewed Comments: Lorazepam PRN for CIWA - no doses given CIWA 2 @ 0400 Pharmacy Antibiotic Review Relevant Labs: Relevant Labs 10/05/24 10/04/24 06:23 12:05 C-Reactive Protein > 25.00 H Procalcitonin 0.17 WBC 11.73 10^3/uL (4.4-10.8) H 10/05/24 06:23 Procalcitonin 0.17 ng/mL 10/04/24 12:05 Temperature 36.6 C Temperature 37.0 C Temperature 36.7 C Temperature 37 C Pharmacy Antibiotic Activity: Abx regimen adjustment and C/S review Comments: Patient is on ceftriaxone and vancomycin, day 1, for sepsis/cellulitis. Vancomycin loading dose given in ED but a continued order was not put in. Reached out to provider who put in order for per pharmacy protocol vancomycin. Current vancomycin dose is 1000mg q12h with predicted AUC of 575. AUC monitoring given diagnosis of sepsis. Ordered level for tonight at 2000, will adjust dose as needed based on results. WBC decreased from 16 and blood cultures are pending.
[2024-10-05] MEDS: cefTRIAXone 1 GM/50 ML BAG IVPB (12:21)
[2024-10-05] MEDS: Normal Saline - Diluent 50 ML VIAL IJ ×2 (14:04→14:05)
[2024-10-05] MEDS: Omnipaque 350 MG/ML 100 ML BTL IJ (14:05)
[2024-10-05] MEDS: Omnipaque 350 MG/ML 50 ML BTL IJ (14:06)
--- NOTE | 2024-10-05 14:07 | DI.CT_ITS ---
Exam(s) CT ABD AORTA CTA W RUNOFF EXAM: CT ABD AORTA CTA W RUNOFF CLINICAL HISTORY: BLE distal stenosis. TECHNIQUE: Imaging Protocol: Axial CT angiography was performed with multi- slice acquisition and multi-planar and/or 3D reconstructions. CONTRAST MATERIAL: Intravenous: Omnipaque 350 Contrast volume:150 mL Oral: No COMPARISON: CT RENAL COLIC WO CONTRAST from 08/08/[address] CHEST PE CTA from 10/07/[address] ABDOMEN PELVIS W from 03/23/2020 FINDINGS: Vascular Structures: Abdomen and pelvis: Celiac [place]/SMA: No evidence of occlusion or significant stenosis. Renal Arteries: No evidence of occlusion or significant stenosis. Aorta: No aneurysm, occlusion or significant stenosis. No dissection. There is mild atherosclerotic calcification. Iliac Arteries: No evidence of occlusion or significant stenosis. Mild atherosclerotic calcification is seen in the common iliac arteries bilaterally and the the right internal iliac artery. There is no significant stenosis. Lower extremities: Right: Femoral: No evidence of occlusion or significant stenosis. Deep Femoral Artery: No evidence of occlusion or significant stenosis. Popliteal: No evidence of occlusion or significant stenosis. Knee Trifurcation: No evidence of occlusion or significant stenosis. Anterior Tibial: No evidence of occlusion or significant stenosis. Posterior Tibial: No evidence of occlusion or significant stenosis. Peroneal:No evidence of occlusion or significant stenosis. Dorsalis Pedis: No evidence of occlusion or significant stenosis. Left: Femoral: No evidence of occlusion or significant stenosis. Deep femoral artery: No evidence of occlusion or significant stenosis. Popliteal: No evidence ofocclusion or significant stenosis. Knee Trifurcation: No evidence of occlusion or significant stenosis. Anterior tibial: No evidence of occlusion or significant stenosis. Posterior Tibial: No evidence of occlusion or significant stenosis. Peroneal: No evidence of occlusion or significant stenosis. Dorsalis Pedis: No evidence of occlusion or significant stenosis. Soft Tissues: Lung bases: There are stable findings in the right lung base. No acute infiltrates are seen. Liver: Normal density. No measurable mass. Portal, splenic and superior mesenteric veins: Unremarkable. Gallbladder and biliary tract: No radiodense calculus or dilation. Pancreas: Normal density, no abnormal calcifications or inflammatory process. Spleen: Normal. Kidneys: Normal size, contour and axis. No radiodense stones or obstructive uropathy. No masses seen. Adrenal glands: No masses seen. Lymph nodes: Unremarkable. Bladder: Symmetric distention, no gross wall thickening. Reproductive organs: The reproductive organs appear stable. There is again seen a calcification associated with the left ovary. This may represent a dermoid. Bowel: No obstruction or bowel wall thickening. The appendix is unremarkable. There is no evidence of pneumatosis. The stomach is incompletely distended limiting evaluation. Peritoneal cavity: No ascites, collection or mesenteric inflammatory response. No free air. Bones: Within normal limits for the patient's age. Soft tissues: There are mildly enlarged lymph nodes seen in the left inguinal region with mild soft tissue stranding which may represent a mild and cellulitis. IMPRESSION: 1. No evidence of abdominal aortic aneurysm or dissection. 2. Mild atherosclerotic calcification is seen in the abdominal aorta and the iliac arteries as described above. 3. No significant stenosis or occlusion is seen in the lower extremities. 4. Mild soft tissue stranding is seen in the left medial thigh with mildly enlarged inguinal lymph nodes. There is mild associated skin thickening medially. This may represent a cellulitis. Please correlate clinically. RADIATION DOSE DELIVERED: 603.65mGy.cm Total DLP 603.65mGy.cm Total DLP DATA REPOSITORY: All CT scans at this facility are submitted to the National Radiology Data Registry (NRDR) Dose Index Registry (DIR) with the [employer] (ACR). RADIATION OPTIMIZATION: All CT scans at this facility use at least one of these dose optimization techniques: automated exposure control; mA and/or kV adjustment per patient size (includes targeted exams where dose is matched to clinical indication); or iterative reconstruction.
--- NOTE | 2024-10-05 16:20 | PT.INNT ---
PT Notes Visit Reasons: Sepsis, infected skin lesions Attempted PT consult on multiple occasions this afternoon. Initially headed down to CT, then refuses on following attempts. Was observed to independently transfer sitting to supine without difficulty. Will attempt PT consult tomorrow.
--- NOTE | 2024-10-05 16:34 | PGE_ITS ---
Date of Service Date of service: 10/05/24 Time of Service: 16:34 Assessment and Plan Assessment and plan (1) Sepsis: Status: Acute Assessment and plan: Presumed source: worsening bilateral anterior fulton skin lesions with fluctuance and drainage. Plan: * Continue IV antibiotic therapy day 2 (ceftriaxone + vancomycin). * BC negative @ 24h - has had group A strep pyogenes and MRSA in the past in leg wounds. * Monitor vital signs and labs closely (CBC, BMP, procalcitonin). * Wound care consult and surgical evaluation for possible incision and drainage if needed. * Continue pain management, avoid opioids if possible due to nausea. * Monitor for clinical improvement or deterioration. * IV fluids initiated to maintain hydration and support circulation. * Oxygen saturation adequate on room air; monitor for respiratory status. 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 Worsening leg pain concerning for possible DVT, plus mild shortness of breath. : Duplex ultrasound of left lower extremity (performed, negative for proximal DVT). CT pulmonary embolism study (performed, negative). Continue anticoagulation with Eliquis as per hematology guidance. Aorta CTA w runoff: No AAA or dissection; mild atherosclerotic changes in abdominal aorta and iliac arteries. Lower extremity arteries patent. Mild left medial thigh soft tissue changes with lymphadenopathy and skin thickening, possible cellulitis; correlate clinically.. Discussed with MD - concern for worsening status, BP soft despite fluids, continues to be febrile. Will tx to ICU for increased level of care. (2) Wound of lower extremity: Status: Acute Assessment and plan: Severe pain (6/10) in left thigh and skin lesions. * Continue Tylenol and consider non-opioid analgesics if tolerated. * Avoid opioids if nausea present; administer antiemetics as needed before Dilaudid-induced nausea). (3) Skin infection: Status: Acute Assessment and plan: Continue ceftriaxone + vancomycin. BC pending neg @ 24h Monitor vital signs and labs Wound care consult and surgical evaluation for possible incision and drainage if needed. Surgery saw patient today and stated her legs are not infected but she would like to debride the wounds and do biopsies. The wounds are unusual for several reasons, and biopsy can help figure out what they are and why they wont heal; guide treatment Continue pain management, avoid opioids if possible due to nausea. Monitor for clinical improvement or deterioration. (4) Anxiety: Status: Chronic Assessment and plan: Continue home meds Lorazepam prn (5) Hypothyroidism: Status: Chronic Assessment and plan: Continue home meds (6) Alcohol abuse: Status: Chronic Assessment and plan: Last alcohol - patient is unclear Not scoring on CIWA will dc. (7) Depression: Status: Chronic Assessment and plan: Continue home meds (8) CAD (coronary artery disease): Status: Chronic Assessment and plan: Stable Telemetry. (9) CHF (congestive heart failure): Status: Chronic Assessment and plan: Stable (10) Hypokalemia: Status: Acute Assessment and plan: 3.4 40 meq oral given Subjective Subjective Patient reports: no new complaints, tolerating liquids well, voiding w/o difficulty, no bowel movement, vomiting and fever; denies no flatus, diarrhea or shortness of breath Interval history since last seen: Patient states she vomits when given pain medicine, but continues to require pain medicine. Exam Narrative Exam Narrative: General: Awake, alert, in no apparent distress HEENT: Non-icteric sclera Neck: Supple, no lymphadenopathy Lungs: Tachypneic , no wheezing or rhonchi, no increased work of breathing Cardiovascular: Tachycardic, regular rhythm, strong distal pulses, well perfused Abdomen: Soft, non-tender, non-distended, no guarding or rebound Musculoskeletal: Tenderness to palpation medial left thigh, no unilateral swelling or deformity, full range of motion Skin: Extensive small crusted abscesses, two larger erythematous, indurated, swollen areas over bilateral anterior shins; left fulton lesion draining serosanguineous fluid Neurologic: Normal gait, no focal deficits Psychiatric: Appropriate mood and affect Objective Last Vital Signs Temp 37.9 C H 10/05/24 15:52 Pulse 87 10/05/24 15:39 Resp 24 10/05/24 15:39 BP 106/52 L 10/05/24 15:39 Pulse Ox 98 10/05/24 15:39 Laboratory Results - last 24 hr 10/04/24 10/04/24 10/05/24 17:20 18:25 06:23 WBC 11.73 H RBC 3.91 L Hgb 12.5 Hct 36.8 MCV 94 MCH 32.0 MCHC 34.0 RDW 14.5 Plt Count 318 MPV 8.7 Immature Gran % 0.5 Neutrophils % 86.5 Lymphocytes % 7.9 Monocytes % 4.9 Eosinophils % 0.0 Basophils % 0.2 Nucleated RBC % 0.0 Absolute Neutrophils 10.15 H Absolute Lymphocytes 0.93 L Absolute Monocytes 0.57 Absolute Eosinophils 0.00 Absolute Basophils 0.02 Sodium 135 L Potassium 3.4 L Chloride 101 Carbon Dioxide 24.3 Anion Gap 9.7 BUN 13 Creatinine 0.7 Est GFR (CKD-EPI 2020) 94.73 Glucose 86 Calcium 8.4 L Magnesium 2.0 Troponin I 13 C-Reactive Protein > 25.00 H Urine Color Yellow Urine Clarity Clear Urine pH 5.0 Ur Specific [place] 1.015 Urine Protein 30 H Urine Ketones >=160 H Urine Blood Trace-lysed H Urine Nitrite Negative Urine Bilirubin Negative Urine Urobilinogen 0.2 Ur Leukocyte Esterase Negative Urine RBC 0-2 Urine WBC 0-2 Ur Epithelial Cells Few Urine Crystals Negative Urine Bacteria Few Urine Casts Negative Urine Mucus Negative Ur Culture Indicated? No Urine Glucose Negative PAWSS Have you Been Recently Intoxicated or Drunk Within the Last 30 days?: No Have you Ever Experienced Previous Episodes of Alcohol Withdrawal?: No Have you ever Experienced Withdrawal Seizures?: No Have you ever Experienced Delirium Tremens(DT)s?: No Have you ever undergone Alcohol Rehabilitation Treatment (i.e, inpt ot outpatient treatment programs)?: No Have you ever Experienced Blackouts?: No Have you ever Combined Alcohol with other Downers within the last 90 days?: No Have you ever Combined Alcohol with any other Substance of Abuse during the last 90 days?: No Positive Blood Alcohol level on Presentation? [PCS.BAL]: No Evidence of Increased Autonomic Activity (i.e. HR>120, tremor, sweating, agitation, nausea)?: No Result: 0 Time Spent with Patient Time Spent with Patient: 35-49 minutes Time was spent: preparing to see the patient(eg.review tests), ordering medications,tests, procedures, referring, communicating with other health care consultant, indepentently interpreting results, counseling the patient and care coordination
--- NOTE | 2024-10-05 17:40 | W.SURGCON ---
Date of service: 10/05/24 Time of Service: 13:00 Assessment and Plan Assessment and plan (1) Open wounds involving multiple regions of upper and lower extremities: Status: Acute Assessment and plan: multiple extensive painful open ulcers of bilateral upper and lower extremities. No gross evidence of infection of the wounds surprisingly - no odor, erythema, purulence or drainage - just skin breakdown and scabbing at this time. Certainly she could be bacteremic from the open wounds, blood cultures pending. Can also have underlying tibial osteomyelitis though the timeline would not suggest this. Given acuity of her illness I will order a bone scan. other occult sources for sepsis should be explored. I recommend a RONNIE or TTE to rule out endocarditis. Consider CT chest/abd/pelvis to look for occult collections or abscesses. (2) Sepsis: Status: Acute Assessment and plan: On vancomycin, rocephin has been discontinued. Consider broad spectrum coverage until etiology is known. I will add zosyn to her vanc regimen given fevers and unidentified sepsis source. Certainly she could be bacteremic from the open wounds of her skin, blood cultures pending. Can also have underlying tibial osteomyelitis though the timeline would not suggest this. Given acuity of her illness I will order a bone scan. other occult sources for sepsis should be explored. I recommend a RONNIE or TTE to rule out endocarditis. Consider CT chest/abd/pelvis to look for occult collections or abscesses. (3) Anticoagulant long-term use: Status: Acute Assessment and plan: hold anticoag for wound debridement and skin biopsy thursday afternoon to determine etiology of wounds and to clean them up. Will need done in OR for sedation as she has excruciating discomfort to examination, will not tolerate bedside debridement. History of Present Illness Narrative: Chief complaint: bilateral lower and upper extremity wounds, sepsis HPI: This is a 69-year-old female who was admitted with signs of sepsis per the admission note, and diffuse skin wounds. The patient tells me that her lower extremity wounds have been present off and on for several years. They never completely heal, and if they do they always come back. The current flareup of her wounds is 2 weeks old. She has bilateral upper extremity excoriating wounds and bilateral lower extremity lower leg wounds. She says that the left anterior fulton may be the most painful. Both lower legs hurt significantly and she cannot get comfortable. She has pain when the room air touches her skin wounds. Keeping them dressed and covered seems to help. Bandage changes have caused a lot of pain. She does not know what causes the wounds. She denies any trauma. She denies creating the wounds herself by accident or on purpose. She has never had a wound biopsy. The upper extremity wounds are more extensive but less painful. She denies a history of diabetes. She notes a history of MRSA. She takes Eliquis twice a day for history of venous thromboembolism. Review of Systems Narrative: pos for subj fever, chills, nausea, pain in legs All systems reviewed & are unremarkable except as noted in HPI and below PFSH All Active Problems Open wounds involving multiple regions of upper and lower extremities (Acute) Hypokalemia (Acute) Skin infection (Acute) Wound of lower extremity (Acute) Sepsis (Acute) Vaginal atrophy (Acute) Exposure to trichomonas (Acute) Prescription for metronidazole sent to the pharmacy 06/25/2023. Traumatic vaginal laceration (Acute) Repaired in the OR Anticoagulant long-term use (Acute) Postcoital bleeding (Acute) Pulmonary embolism with infarction (Acute) Tubular adenoma (Acute) repeat CE in 3 yrs time Chronic GERD (Acute) Pancreatitis (Chronic) Discharge planning issues (Acute) Ambulatory dysfunction (Acute) Bilateral pulmonary embolism (Acute) Pain and swelling of left upper extremity (Acute) Lung mass (Acute) Pleuritic chest pain (Acute) Abnormal mammogram (Acute) benign tissue Shortness of breath (Acute) Polycythemia (Acute) Chest pain (Acute) Urinary urgency (Acute) Breast lump (Acute) Cannabis use disorder, mild, abuse (Acute) Suicidal ideation (Acute) PTSD (post-traumatic stress disorder) (Acute) Hypokalemia (Acute) Abnormal EKG (Acute) History of pulmonary embolus (PE) (Chronic) DVT prophylaxis (Acute) Discharge planning issues (Acute) Hypomagnesemia (Acute) Peripheral neuropathy (Acute) Chronic pulmonary embolism (Chronic) Pulmonary infarct (Acute) LUQ abdominal pain (Acute) Osteoporosis (Chronic) Lumbar vertebral fracture (Acute) Thoracic vertebral fracture (Acute) Acute hyperkalemia (Acute) VLADIMIR (acute kidney injury) (Acute) AMS (altered mental status) (Acute) Non-ST elevation LA (NSTEMI) (Acute) Rhabdomyolysis (Acute) Pneumonia (Acute) CHF (congestive heart failure) (Chronic) CAD (coronary artery disease) (Chronic) ASCUS with positive high risk HPV (Acute) Ulcerative colitis (Chronic) Pulmonary emboli (Chronic) Depression (Chronic) Anxiety (Chronic) Hypothyroidism (Chronic) Alcohol abuse (Chronic) Medical History Hypokalemia Hx of myocardial infarction pt. states mild LA in april 2020 Surgical History History of esophagogastroduodenoscopy (EGD) (~11/30/20) History of colonoscopy with polypectomy (~11/30/20) Hx of colonoscopy Hx of section Family History Father Heart disease Paternal Grandmother Cancer Maternal Grandmother Cancer Social History Smoking/Tobacco Use Status: Current every day Tobacco Type: cigarettes Years smoked: 46 Tobacco: How many years used: 46 Smoking risk assessment performed?: Yes Alcohol Intake: current Alcohol Intake frequency: holidays/special occasions only Alcohol type: wine Drug use: Daily Substance use type: marijuana Details: states last used marijuana .09.12 Housing: apartment Current gender identity: female Do you feel safe at home: Yes Female Reproductive History Menstrual Menopause type: natural Exam Narrative Exam Narrative: awake, pale, appears uncomforrtable and distressed mildly. eomi, MMM midline trachea, neck is symmetric PULM: normal resp effort, equal chest rise with respiration, no wheezing audible CARDIAC: regular rate, normal perfusion. DP pulses intact bilat abdomen is nondistended. extremities are without deformity, normal movement of all four extremities speech is clear and coherent mood and affect are congruent, no focal neurological deficits skin - diffuse upper and lower extremity circular and oval ulcerations. RLE lower leg with 5 wounds ranging in size from 1cm round to 4 x 5cm oval. Anterior lower leg wound with epidermal sloughing and exposed subcutaneous tissue. posterior calf ulcer is tender. no exposed bone on my exam. No erythema or purulence of wounds, no evidence of abscess or cellulitis. LLE anterior lower leg with two larger wounds compared to the right. 5cm by 3cm oval, epidermal sloughing, exposed subcut fat and muscle. No erythema or purulence of wounds, no evidence of abscess or cellulitis. Results Last Vital Signs Temp 100.8 F H 10/05/24 17:36 Pulse 87 10/05/24 15:39 Resp 24 10/05/24 15:39 BP 106/52 L 10/05/24 15:39 Pulse Ox 98 10/05/24 15:39 Labs 10/05/24 06:23 10/05/24 06:23 Labs: Laboratory Results - last 24 hr 10/04/24 10/04/24 10/05/24 17:20 18:25 06:23 WBC 11.73 H RBC 3.91 L Hgb 12.5 Hct 36.8 MCV 94 MCH 32.0 MCHC 34.0 RDW 14.5 Plt Count 318 MPV 8.7 Immature Gran % 0.5 Neutrophils % 86.5 Lymphocytes % 7.9 Monocytes % 4.9 Eosinophils % 0.0 Basophils % 0.2 Nucleated RBC % 0.0 Absolute Neutrophils 10.15 H Absolute Lymphocytes 0.93 L Absolute Monocytes 0.57 Absolute Eosinophils 0.00 Absolute Basophils 0.02 Sodium 135 L Potassium 3.4 L Chloride 101 Carbon Dioxide 24.3 Anion Gap 9.7 BUN 13 Creatinine 0.7 Est GFR (CKD-EPI 2020) 94.73 Glucose 86 Calcium 8.4 L Magnesium 2.0 Troponin I 13 C-Reactive Protein > 25.00 H Urine Color Yellow Urine Clarity Clear Urine pH 5.0 Ur Specific [place] 1.015 Urine Protein 30 H Urine Ketones >=160 H Urine Blood Trace-lysed H Urine Nitrite Negative Urine Bilirubin Negative Urine Urobilinogen 0.2 Ur Leukocyte Esterase Negative Urine RBC 0-2 Urine WBC 0-2 Ur Epithelial Cells Few Urine Crystals Negative Urine Bacteria Few Urine Casts Negative Urine Mucus Negative Ur Culture Indicated? No Urine Glucose Negative
[2024-10-05 17:57] LABS: Lab Add On Test DONE
[2024-10-05 18:19] LABS: Procalcitonin 2.82 ng/mL
[2024-10-05 18:31] LABS: Cannabinoids THC Positive (Negative); METHADONE URINE SCREEN Negative (Negative)
[2024-10-05] MEDS: PIPERACILLIN/TAZO 3.375 GM in Normal Saline 50 ML IVPB (20:46)
[2024-10-05 21:48] LABS: Vancomycin, Random 9.5 ug/mL
[2024-10-05] MEDS: VANCOMYCIN/WATER (PEG) 1.25 GM/250 ML BAG IV (23:04)
[2024-10-06] VITALS (22 sets, daily range): BP systolic 85–111; BP diastolic 51–61; PULSE 68–88; RESP 17–28; TEMP 37.6–37.8; O2SAT 89–99
--- NOTE | 2024-10-06 | DI.US_ITS ---
APPROVED REPORT EXAM: Comprehensive 2D, Doppler, and color-flow Echocardiogram Patient Location: In-Patient Room/Bed: XLC530 Corrugator Operator Helper: Annalisa Kenny RDCS (AE) Indications: Sepsis, CAD, CHF, Smoker Other Information Study Quality: Adequate. Technically limited study due to body habitus smoker, exam done bedside supine ICU. Conclusion Normal left ventricular wall thickness and chamber size. Ejection fraction is 55%. Wall motion is normal Grossly normal right ventricular size and function Both atria are normal in size There is no significant valvular disease Estimated right ventricular systolic pressure is 38 mmHg Wall motion Left Ventricle The left ventricle is normal size. The left ventricular systolic function is normal. The left ventricular ejection fraction is within the normal range. There is normal left ventricular wall thickness. There is normal LV segmental wall motion. There is no ventricular septal defect visualized. LVEF is 55%. Right Ventricle Right ventricle is grossly normal in size. Right ventricular systolic function is grossly normal. Atria The left atrium size is normal. The right atrium size is normal. The interatrial septum is intact with no evidence for an atrial septal defect. Aortic Valve The aortic valve is normal in structure. Aortic valve is trileaflet. There is no aortic valvular stenosis. No aortic regurgitation is present. Mitral Valve The mitral valve is normal in structure. No evidence of mitral valve stenosis. Trace to mild mitral regurgitation. Tricuspid Valve The tricuspid valve is normal in structure. There is no tricuspid valve stenosis. Trace to mild tricuspid regurgitation. The RVSP is 38.1 mmHg. Pulmonic Valve The pulmonary valve is normal in structure. There is no pulmonic valvular stenosis. Trace pulmonic regurgitation. Great Vessels The aortic root is normal in size. The ascending aorta is normal in size. Aortic arch is not well visualized. IVC is normal in size and collapses >50% with inspiration. Pericardium There is no pericardial effusion. 2D Dimensions IVSD d PLAX 0.82 cm F: 0.6-1.0 Ao Root d 2.73 cm F: 2.7 - 3.3 LVPW d PLAX 0.80 cm F: 0.6 - 1.0 Ao Asc Diam d 3.37 cm F: 2.3 - 3.1 LVID d PLAX 4.81 cm F: 3.8 - 5.2 LVDs 3.45 cm F: 2.2 - 3.5 LV EF Teichholz 54.6 % FS 28.30 % LV EDV (Teich) 108.0 mL LV ESV (Teich) 49.1 mL M-Mode TAPSE 1.78 cm (M/F) >1.7 Auto EF LV EDV A4C 75.1 mL LV EDV A2C 79.9 mL LV EDV BP 78.1 mL LV ESV A4C 33.9 mL LV ESV A2C 35.6 mL LV ESV BP 35.1 mL LVEF(%) A4C 54.9 % LVEF(%) A2C 55.4 % LVEF(%) BP 55.0 % LV SV A4C 41.3 ml LV SV A2C 44.3 ml LV SV BP 43.0 ml LV CO A4C 3.1 L/min LV CO A2C 3.3 L/min LV CO BP 3.2 L/min HR A4C 76.27 BPM HR A2C 75.16 BPM LV EDV Index (BP) LA Volume LA Length A4C 5.2 cm LA Length A2C 5.3 cm LA Area A4C s 14.97 cm2 LA Area A2C s 17.85 cm2 LA Vol A4C A-L 36.72 mL LA Vol A2C A-L 51.44 mL LA Vol Biplane A-L 43.8 mL LA Vol/BSA A4C A-L LA Vol/BSA A2C A-L LA Vol/BSA BP A-L 25.0 mL/m2 LA Vol A4C MOD 35.7 mL LA Vol A2C MOD 48.6 mL LA Vol BP MOD 41.2 mL RA Volume RA Area A4C 11.0 cm2 RA ESV A4C (A-L) 24.1mL RA Vol/BSA A4C A-L RA Length A4C 4.2 cm RA ESV A4C (MOD) 23.8mL LV Diastology MV E' medial 0.092 (>0.07 m/s) MV E Vmax 0.94 (0.4-1.3 m/s) MV E/E' MED 10.18 (<14) MV A Vmax 0.60 (0.4-1.3 m/s) MV E' lateral 0.134 (>0.1 m/s) E/A Ratio 1.6 MV E/E' LAT 6.99 (<14) MV E' Average 0.113 m/s MV E/E'(average) 8.28 Aortic Valve AoV Vmax 1.62 m/s LVOT Vmax 1.32 m/s AoV Peak Grad 10.5 mmHg LVOT Peak Grad 7.0 mmHg AoV Area (Vmax) 2.27 cm2 LVOT VTI 0.267 m AoV VTI 0.330 m LVOT Mean Grad 3.8 mmHg AoV Mean Teddy. 1.11 m/s LVOT SV 74.30 mL AoV Mean Grad 5.7 mmHg LVOT Diam s 1.85 cm AoV Area (VTI) 2.25 cm2 AV Regurg Peak Gr. 10.47 mmHg Velocity Ratio 0.81 Mitral Valve MV DT 198 (160-240 msec) MV Vmax TIPS 0.87 m/s MV Mean Grad 1.1 (<2mmHg) MV VTI 0.246 m Pulmonary Valve PV Vmax 0.87 (0.5-1.5 m/s) RVOT Vmax 0.76 m/s PV Peak Grad 3.0 mmHg RVOT Peak Gr. 2.3 mmHg PV Mean Teddy 0.73 m/s RVOT VTI 0.184 m PV Mean Grad 2.2 mmHg RVOT Mean Gr. 1.4 mmHg Tricuspid Valve RA Pressure 3.00 mmHg TR Vmax 2.96 m/s TV S' 0.16 m/s TR Peak Grad 35.0 mmHg RVSP (TR) 38.1 mmHg
--- NOTE | 2024-10-06 | DI.NM_ITS ---
Exam(s) NM BONE SCAN 3 PHASE EXAM: NM BONE SCAN 3 PHASE CLINICAL HISTORY: sepsis, bilateral pretibial open wounds. TECHNIQUE: Injected Dose: 25.2 mCi Tc-99m MDP COMPARISON: CT CT ABD AORTA CTA W RUNOFF from 10/05/2024 FINDINGS: Perfusion: Hyperemia to the soft tissues of the left lower leg. Blood Pool: Soft tissue activity greater in the left lower leg. Delayed: No focal area of intense suspicious uptake is seen. IMPRESSION: Increased soft tissue activity consistent with cellulitis of the left lower leg. No significantly increased bony activity to suggest osteomyelitis. DATA REPOSITORY:
[2024-10-06] MEDS: Lactated Ringers 1,000 ML 1000 ML IV (01:41)
[2024-10-06] MEDS: PIPERACILLIN/TAZO 3.375 GM in Normal Saline 50 ML IVPB ×3 (03:50→19:47)
[2024-10-06] MEDS: Ondansetron 4 MG/2 ML VIAL IVP ×5 (04:14→21:56)
[2024-10-06] MEDS: HYDROmorphone 2 MG/ML SYR 0.5 MG IVP ×5 (04:14→21:56)
[2024-10-06] MEDS: Normal Saline Flush 10 ML SYR IVP ×4 (04:15→21:55)
[2024-10-06] MEDS: Levothyroxine 100 MCG TAB PO (05:50)
[2024-10-06 06:47] LABS: Abs Immature Grans 0.04 10^3/uL (0.0-0.06); HCT 32.8 % (36.0-46.0); HGB 10.4 g/dL (11.2-15.7); Immature Grans % 0.5 %; MCH 30.7 pg (27.0-33.0); MCHC 31.7 % (32.0-36.0); MCV 97 fL (80-95); MPV 9.0 fL (8.0-11.0); Platelet Count 308 10^3/uL (130-400); RBC 3.39 10^6/uL (3.93-5.22); RDW 14.8 % (11.7-14.6); RDW-SD 52.7 fL; WBC 8.29 10^3/uL (4.4-10.8)
[2024-10-06] MEDS: Folic Acid 1 MG TAB PO (08:00)
[2024-10-06] MEDS: Multivitamin TAB 1 TAB PO (08:00)
[2024-10-06] MEDS: Escitalopram 20 MG TAB PO (08:00)
[2024-10-06] MEDS: Thiamine 100 MG TAB PO (08:00)
--- NOTE | 2024-10-06 08:41 | PDOC.CMPRO ---
Date of service: 10/06/24 Time of Service: 08:41 Care Management Progress Note Progress Note Text Progress Note Text: Martina was sitting up in bed eating dinner when CM met with her. She was pleasant and much more talkative today. She has several open wounds of her upper and lower extremities which requires further medical workup and imaging. Bone Scan and Echo completed today, results pending. Martina is also planning to go to the OR tomorrow for I&D of her legs. CM spoke with Raghu Jean-Baptiste whom is her community RN through [facility]. Raghu reports that she is very familiar with Martina and recently went out to her home mid July to renew her for services. She also stops by her home from time to time to deliver her food from [employer] and reports that Martina is independent at baseline. Per Raghu, her home is in good condition and the last time she was there she had a nice little garden growing next to her front door. Raghu will be at the hospital tomorrow and is planning to stop by to visit with Martina. CM reviewed with pt, and she would like this. Discharge Potential Discharge Needs: PCP F/U Appt Anticipated Barriers to Discharge: None Identified Patient/Family Education Needs: Review discharge instructions, discuss Ask Me Three Transportation: RCT Plan: Anticipate Martina will be discharged home once medically cleared by provider. She will follow up with her PCP, community providers, and discharge plan of care as directed. Martina will be driven home by RCT, which will be coordinated by CM when ready. CM will continue to support Martina and assess for discharge planning needs. Social Determinants of Health Screening Social Determinants of health last assessed in clinic: 10/06/24 Will the Patient Participate in the Screening?: Yes Do you worry about having a steady place to live?: choose not to answer Problems where you live: no known problems In the past 12 months, have you had to go without electric, gas, oil or water in your home?: choose not to answer 1. Within the past 12 months, we worried whether our food would run out before we got money to buy more.: Never true 2. Within the past 12 months, the food we bought just didn't last and we didn't have money to get more.: Never true Has lack of transportation kept you from medical appointments or from doing things needed for daily living?: choose not to answer Has anyone in your life made you feel unsafe or unsupported?: choose not to answer How hard is it for you to pay for the very basics like food, housing, medical care, and heating? Would you say it is:: Somewhat hard Do you want help finding or keeping work or a job?: Yes, help keeping work If for any reason you need help with day-to-day activities such as bathing, preparing meals, shopping, managing finances, etc., do you get the help you need?: I could use a little more help How often do you feel lonely or isolated from those around you?: Sometimes Do you speak a language other than [place] at home?: No Does the patient want assistance with any of the above?: No Health Related Social Needs Health related social needs: material hardship(utilities) (Z59.12), problems related to housing/economic circumstances (Z59.89), problems finding work (Z56.9), problems with daily activities (Z73.9) and feeling lonely/isolated (Z60.8) Health related social needs details: wound care
[2024-10-06 08:54] LABS: Anion Gap 11.6 mmol/L (3-11); BUN 9 mg/dL (7-18); C-Reactive Protein 22.58 mg/dL (<or=0.5); CO2 20.4 mmol/L (21.0-32.0); Calcium 8.0 mg/dL (8.5-10.1); Chloride 106 mmol/L (98-107); Estimated GFR 94.73 (mL/min/1.73m2); Glucose 115 mg/dL (74-106); Magnesium 2.0 mg/dL (1.8-2.4); Potassium 3.7 mmol/L (3.5-5.1); Sodium 138 mmol/L (136-145)
[2024-10-06 09:08] LABS: Vancomycin, Random 14.6 ug/mL
[2024-10-06] MEDS: Normal Saline 1,000 ML 125 ML IV ×2 (10:01→21:54)
[2024-10-06] MEDS: VANCOMYCIN/WATER (PEG) 1 GM/200 ML BAG IVPB ×2 (10:05→21:55)
--- NOTE | 2024-10-06 10:09 | PGE_ITS ---
Date of Service Date of service: 10/06/24 Time of Service: 10:09 Assessment and Plan Assessment and plan (1) Sepsis: Status: Acute Assessment and plan: Presumed source: worsening bilateral anterior [place] skin lesions with fluctuance and drainage. Plan: * Initiated on IV antibiotic therapy w ceftriaxone + vancomycin. History of strep pyogenous resistant to oxacillin and MRSA * As patient will consult if symptoms continue and piperacillin tazobactam added * Preliminary BC negative @ 24h - * Labs in a.m. monitor inflammatory labs * Wound care consult * Surgical consult * Ongoing pain management, avoid opioids if possible due to nausea , but will treat with PRN zofran * Monitor for clinical improvement or deterioration. * Ongoing IV fluids to maintain hydration and support circulation. * Oxygen saturation adequate on room air; monitor for respiratory status. History of recurrent thromboembolic disease on anticoagulation (Eliquis) on hold until s/p OR. Worsening leg pain concerning for possible DVT, plus mild shortness of breath. : Duplex ultrasound of left lower extremity (performed, negative for proximal DVT). CT pulmonary embolism study (performed, negative). Continue anticoagulation with Eliquis as per hematology guidance. Aorta CTA w runoff: No AAA or dissection; mild atherosclerotic changes in abdominal aorta and iliac arteries. Lower left arteries patent. Mild left medial thigh soft tissue changes with lymphadenopathy and skin thickening, possible cellulitis; correlate clinically.. Discussed with MD - concern for worsening status, BP soft despite fluids, continues to be febrile. Will tx to ICU for increased level of care. (2) Skin infection: Status: Acute Assessment and plan: As above BCx neg @ 24h Wound Cx no growth Continue to monitor vital signs and labs and inflammatory markers Wound care consult Surgical consult : OR in AM to debride the wounds and do biopsies to guide treatment Continue pain management, avoid opioids if possible due to nausea. Monitor for clinical improvement or deterioration. (3) Wound of lower extremity: Status: Acute Assessment and plan: -Severe pain (6/10) in left thigh and skin lesions; improved now . * Continue Tylenol and consider non-opioid analgesics if tolerated. * Avoid opioids if nausea present; administer antiemetics as needed before Dilaudid-induced nausea. * PRN lorazepam (4) Anxiety: Status: Chronic Assessment and plan: Ongoing home meds Lorazepam prn (5) Hypothyroidism: Status: Chronic Assessment and plan: Continue synthroid (6) Alcohol abuse: Status: Chronic Assessment and plan: Hx of alcohol intake -last drink is unclear Not scoring on CIWA- was d/c'ed (7) Depression: Status: Chronic Assessment and plan: ongoing home meds (8) CAD (coronary artery disease): Status: Chronic Assessment and plan: Stable Telemetry. (9) CHF (congestive heart failure): Status: Chronic Assessment and plan: No exacerbation (10) Hypokalemia: Status: Acute Assessment and plan: Resolved (11) On deep vein thrombosis (DVT) prophylaxis: Status: Acute Assessment and plan: On LMWH until 2359 d/t OR in AM Discussed with DR. Beyer Subjective Subjective Patient reports: still having pain, tolerating liquids well, tolerating a regular diet, voiding w/o difficulty, bowel movement, nausea and other (CHILLS); denies diarrhea, blood in stool, vomiting or fever Exam Narrative Exam Narrative: 69-year-old female patient looking of stated age, no focal neurological deficit, alert noted x 4, clear lungs, unlabored breathing, S1-S2 regular, no murmur, si nus rhythm 67 on tele,pulses are positive to all 4 extremities, abdomen is nondistended soft nontender bowel sounds are present, no CVA tenderness Objective Last Vital Signs Temp 37.8 C H 10/06/24 04:00 Pulse 73 10/06/24 08:06 Resp 18 10/06/24 08:06 BP 96/53 L 10/06/24 08:05 Pulse Ox 97 10/06/24 08:06 Laboratory Results - last 24 hr 10/05/24 10/05/24 10/05/24 06:25 12:30 20:13 WBC RBC Hgb Hct MCV MCH MCHC RDW Plt Count MPV Immature Gran % Neutrophils % Lymphocytes % Monocytes % Eosinophils % Basophils % Nucleated RBC % Absolute Neutrophils Absolute Lymphocytes Absolute Monocytes Absolute Eosinophils Absolute Basophils Sodium Potassium Chloride Carbon Dioxide Anion Gap BUN Creatinine Est GFR (CKD-EPI 2020) Glucose Calcium Magnesium C-Reactive Protein Procalcitonin 2.82 Random Vancomycin 9.5 Urine Opiates Screen Positive A Urine Methadone Screen Negative Ur Barbiturates Screen Negative Ur Tricyclics Screen Negative Ur Amphetamines Screen Negative U Benzodiazepines Scrn Negative Urine Cocaine Screen Positive A Ur THC Screen Positive A Add-On Test Request 08/13/25 08/14/25 08/14/25 Unknown 05:46 08:20 WBC 8.29 RBC 3.39 L Hgb 10.4 L D Hct 32.8 L MCV 97 H MCH 30.7 MCHC 31.7 L D RDW 14.8 H Plt Count 308 MPV 9.0 Immature Gran % 0.5 Neutrophils % 78.8 Lymphocytes % 11.1 Monocytes % 8.8 Eosinophils % 0.4 Basophils % 0.4 Nucleated RBC % 0.0 Absolute Neutrophils 6.54 Absolute Lymphocytes 0.92 L Absolute Monocytes 0.73 Absolute Eosinophils 0.03 Absolute Basophils 0.03 Sodium 138 Potassium 3.7 Chloride 106 Carbon Dioxide 20.4 L Anion Gap 11.6 H BUN 9 Creatinine 0.7 Est GFR (CKD-EPI 2020) 94.73 Glucose 115 H Calcium 8.0 L Magnesium 2.0 C-Reactive Protein 22.58 H Procalcitonin Random Vancomycin 14.6 Urine Opiates Screen Urine Methadone Screen Ur Barbiturates Screen Ur Tricyclics Screen Ur Amphetamines Screen U Benzodiazepines Scrn Urine Cocaine Screen Ur THC Screen Add-On Test Request DONE PAWSS Have you Been Recently Intoxicated or Drunk Within the Last 30 days?: No Have you Ever Experienced Previous Episodes of Alcohol Withdrawal?: No Have you ever Experienced Withdrawal Seizures?: No Have you ever Experienced Delirium Tremens(DT)s?: No Have you ever undergone Alcohol Rehabilitation Treatment (i.e, inpt ot outpatient treatment programs)?: No Have you ever Experienced Blackouts?: No Have you ever Combined Alcohol with other Downers within the last 90 days?: No Have you ever Combined Alcohol with any other Substance of Abuse during the last 90 days?: No Positive Blood Alcohol level on Presentation? [PCS.BAL]: No Evidence of Increased Autonomic Activity (i.e. HR>120, tremor, sweating, agitation, nausea)?: No Result: 0 Time Spent with Patient Time Spent with Patient: >50 minutes Time was spent: preparing to see the patient(eg.review tests), obtaining and/or reviewing separately otained hiistory, ordering medications,tests, procedures, referring, communicating with other health home day care provider, indepentently interpreting results, counseling the patient and care coordination
--- NOTE | 2024-10-06 10:18 | PGE_ITS ---
Date of Service Date of service: 10/06/24 Time of Service: 09:30 Assessment and Plan Assessment and plan (1) Sepsis: Status: Acute Assessment and plan: wbc improved, HR normalized, BP remains soft. Source is uncertain, certainly could be from skin wounds but they do not appear purulent or severe enough for the degree of illness she presented with or thr degree of CRP elevation. Bone scan of lower extremities to rule out osteomyelitis under the larger wounds is being done today. Consider RONNIE to look for valvular vegetations and CT chest/abd/pelvis if cause remains occult. Leave her on broad spectrum abx until we can narrow the suspected source, vanc and zosyn ordered. (2) Open wounds involving multiple regions of upper and lower extremities: Status: Acute Assessment and plan: differential is broad but given appearance and associated pain a biopsy is wa rranted to rule out pyoderma gangrenosum or calciphylaxis etc. The pattern of wounds is not consistent with vascular lesions or traiditional lower extremity wounding, and she denies trauma and skin picking. Bacteremia from the open sores is a possible cause of her presenting sepsis. Daily wound dressings for now with nonadherent vaseline gauze and ABDs and kerlix. Wound debridement tomorrow afternoon. Holding anticoag until then. It will not be fully worn off but risk of major bleeding will be less. I will restart anticoag as soon as deemed safe post op. NPO at midnight. (3) Anticoagulant long-term use: Status: Acute Assessment and plan: Wound debridement tomorrow afternoon. Holding anticoag until then. It will not be fully worn off but risk of major bleeding will be less. I will restart anticoag as soon as deemed safe post op. Subjective Subjective Interval history since last seen: no new complaints. Pain in L thigh is decreased, feels a lot better she says. I did not find an abscess of the left thigh on exam. Leg wounds feel the same. she says they are very painful. Transferred to icu overnight due to hypotension. Soft pressures this AM, says she normally runs low but not this low. Going for bone scan this morning. Exam Narrative Exam Narrative: awake, appears comfortable, improved from yesterday eomi, MMM normal resp effort Lower extremities dressed, posterior left ankle tender, new from yesterday, erythema of posterior ankle Objective Last Vital Signs Temp 100.0 F H 10/06/24 04:00 Pulse 73 10/06/24 08:06 Resp 18 10/06/24 08:06 BP 96/53 L 10/06/24 08:05 Pulse Ox 97 10/06/24 08:06 Laboratory Results - last 24 hr 10/05/24 10/05/24 10/05/24 06:25 12:30 20:13 WBC RBC Hgb Hct MCV MCH MCHC RDW Plt Count MPV Immature Gran % Neutrophils % Lymphocytes % Monocytes % Eosinophils % Basophils % Nucleated RBC % Absolute Neutrophils Absolute Lymphocytes Absolute Monocytes Absolute Eosinophils Absolute Basophils Sodium Potassium Chloride Carbon Dioxide Anion Gap BUN Creatinine Est GFR (CKD-EPI 2020) Glucose Calcium Magnesium C-Reactive Protein Procalcitonin 2.82 Random Vancomycin 9.5 Urine Opiates Screen Positive A Urine Methadone Screen Negative Ur Barbiturates Screen Negative Ur Tricyclics Screen Negative Ur Amphetamines Screen Negative U Benzodiazepines Scrn Negative Urine Cocaine Screen Positive A Ur THC Screen Positive A Add-On Test Request 10/05/24 10/06/24 10/06/24 Unknown 05:46 08:20 WBC 8.29 RBC 3.39 L Hgb 10.4 L D Hct 32.8 L MCV 97 H MCH 30.7 MCHC 31.7 L D RDW 14.8 H Plt Count 308 MPV 9.0 Immature Gran % 0.5 Neutrophils % 78.8 Lymphocytes % 11.1 Monocytes % 8.8 Eosinophils % 0.4 Basophils % 0.4 Nucleated RBC % 0.0 Absolute Neutrophils 6.54 Absolute Lymphocytes 0.92 L Absolute Monocytes 0.73 Absolute Eosinophils 0.03 Absolute Basophils 0.03 Sodium 138 Potassium 3.7 Chloride 106 Carbon Dioxide 20.4 L Anion Gap 11.6 H BUN 9 Creatinine 0.7 Est GFR (CKD-EPI 2020) 94.73 Glucose 115 H Calcium 8.0 L Magnesium 2.0 C-Reactive Protein 22.58 H Procalcitonin Random Vancomycin 14.6 Urine Opiates Screen Urine Methadone Screen Ur Barbiturates Screen Ur Tricyclics Screen Ur Amphetamines Screen U Benzodiazepines Scrn Urine Cocaine Screen Ur THC Screen Add-On Test Request DONE PAWSS Have you Been Recently Intoxicated or Drunk Within the Last 30 days?: No Have you Ever Experienced Previous Episodes of Alcohol Withdrawal?: No Have you ever Experienced Withdrawal Seizures?: No Have you ever Experienced Delirium Tremens(DT)s?: No Have you ever undergone Alcohol Rehabilitation Treatment (i.e, inpt ot outpatient treatment programs)?: No Have you ever Experienced Blackouts?: No Have you ever Combined Alcohol with other Downers within the last 90 days?: No Have you ever Combined Alcohol with any other Substance of Abuse during the last 90 days?: No Positive Blood Alcohol level on Presentation? [PCS.BAL]: No Evidence of Increased Autonomic Activity (i.e. HR>120, tremor, sweating, agitation, nausea)?: No Result: 0 Time Spent with Patient Time Spent with Patient: 25-34 minutes Time was spent: preparing to see the patient(eg.review tests), obtaining and/or reviewing separately otained hiistory, ordering medications,tests, procedures and counseling the patient
[2024-10-06] MEDS: Enoxaparin 40 MG/0.4 ML SYR SC (12:36)
[2024-10-06] MEDS: Omeprazole 20 MG CAPCR PO (19:47)
[2024-10-07] VITALS (23 sets, daily range): BP systolic 91–138; BP diastolic 48–75; PULSE 65–83; RESP 12–22; TEMP 35.8–37.7; O2SAT 92–100; BMI 26.5
[2024-10-07] MEDS: Normal Saline Flush 10 ML SYR IVP ×3 (02:58→18:18)
[2024-10-07] MEDS: HYDROmorphone 2 MG/ML SYR 0.5 MG IVP ×4 (02:59→22:51)
[2024-10-07] MEDS: Ondansetron 4 MG/2 ML VIAL IVP ×3 (02:59→22:50)
[2024-10-07] MEDS: PIPERACILLIN/TAZO 3.375 GM in Normal Saline 50 ML IVPB ×3 (03:58→20:05)
[2024-10-07] MEDS: Levothyroxine 100 MCG TAB PO (06:01)
[2024-10-07] MEDS: Normal Saline 1,000 ML 125 ML IV ×3 (06:02→20:16)
[2024-10-07] MEDS: Thiamine 100 MG TAB PO (07:57)
[2024-10-07] MEDS: Multivitamin TAB 1 TAB PO (07:57)
[2024-10-07] MEDS: Folic Acid 1 MG TAB PO (07:57)
[2024-10-07] MEDS: Escitalopram 20 MG TAB PO (07:57)
[2024-10-07] MEDS: Omeprazole 20 MG CAPCR PO (07:58)
--- NOTE | 2024-10-07 08:51 | CMPROGNOTE_ITS ---
Date of service: 10/07/24 Time of Service: 08:51 Care Management Progress Note Progress Note Text Progress Note Text: Martina was lying in bed and appeared to be sleeping when CM visited. She is scheduled to go down to the OR later this afternoon for an I&D of her wounds, therefor CM opted to not wake her at this time. Discharge planning will depend on the outcome of today's surgical intervention and plan of care moving forward. CM will continue to follow and support discharge planning considerations as they are identied. PT consult is pending. Discharge Potential Discharge Needs: PCP F/U Appt and Surgical F/U Appt Anticipated Barriers to Discharge: None Identified Patient/Family Education Needs: Review discharge instructions, discuss Ask Me Three Transportation: [facility] Plan: Anticipate, Martina will be discharged home once medically cleared by provider. She will follow up with her PCP, community providers, and discharge plan of care as directed. Martina will be driven home by [facility], which will be coordinated by CM when ready. CM will continue to support Martina and assess for discharge planning needs. PT consult is pending. Social Determinants of Health Screening Social Determinants of health last assessed in clinic: 10/07/24 Will the Patient Participate in the Screening?: Yes Do you worry about having a steady place to live?: choose not to answer Problems where you live: no known problems In the past 12 months, have you had to go without electric, gas, oil or water in your home?: choose not to answer 1. Within the past 12 months, we worried whether our food would run out before we got money to buy more.: Never true 2. Within the past 12 months, the food we bought just didn't last and we didn't have money to get more.: Never true Has lack of transportation kept you from medical appointments or from doing things needed for daily living?: choose not to answer Has anyone in your life made you feel unsafe or unsupported?: choose not to answer How hard is it for you to pay for the very basics like food, housing, medical care, and heating? Would you say it is:: Somewhat hard Do you want help finding or keeping work or a job?: Yes, help keeping work If for any reason you need help with day-to-day activities such as bathing, preparing meals, shopping, managing finances, etc., do you get the help you need?: I could use a little more help How often do you feel lonely or isolated from those around you?: Sometimes Do you speak a language other than Cambodian at home?: No Does the patient want assistance with any of the above?: No Health Related Social Needs Health related social needs: material hardship(utilities) (Z59.12), problems related to housing/economic circumstances (Z59.89), problems finding work (Z56.9), problems with daily activities (Z73.9) and feeling lonely/isolated (Z60.8) Health related social needs details: wound care
[2024-10-07] MEDS: VANCOMYCIN/WATER (PEG) 1 GM/200 ML BAG IVPB ×2 (09:59→21:25)
--- NOTE | 2024-10-07 11:42 | CHAPLAIN ---
Martina was resting in bed when I visited and brought her a comfort shawl. She said she's in touch with family and friends for supports. I let her know that wet trimmer is always available to her as well. She was pleasant and engaged in a short conversation.
--- NOTE | 2024-10-07 12:10 | PGE_ITS ---
Date of Service Date of service: 10/07/24 Time of Service: 17:00 Assessment and Plan Assessment and plan (1) Sepsis: Status: Resolved Assessment and plan: Septic on arrival, appropriate interventions in ED October 05 hypotension, transferred to ICU, no pressors needed, returned to floor Sepsis is resolved as of October 06 (2) Skin infection: Status: Acute Assessment and plan: Multiple skin wounds, history of GAS and MRSA, appropriate interventions since admission for debridement and wound care. Blood cultures NGTD. Aorta CTA w runoff: no evidence of vasculopathy OR for debridement October 07, biopsy pending, rule out pyoderma gangrenosum et al Continue broad spectrum antibiotics. Continue PRN pain management; post-op narcotics appropriate, taper and home plan will be challenging (3) Anxiety: Status: Chronic Assessment and plan: Discontinued benzos (4) Hypothyroidism: Status: Chronic Assessment and plan: Continue home levothyroxine (5) Alcohol abuse: Status: Chronic Assessment and plan: Hx of alcohol intake -last drink is unclear Not scoring on CIWA- was d/c'ed (6) Depression: Status: Chronic Assessment and plan: Continue home escitalopram (7) CAD (coronary artery disease): Status: Chronic Assessment and plan: Discontinued telemetry (8) CHF (congestive heart failure): Status: Chronic Assessment and plan: Oct 06 echo showing EF 55%, no evident valvular disease (9) Hypokalemia: Status: Resolved Assessment and plan: Resolved (10) On deep vein thrombosis (DVT) prophylaxis: Status: Acute Assessment and plan: Apixaban resumed Subjective Subjective Interval history since last seen: Ms. Kuhn continues to report pain and to request narcotics. OR for BLE wound debridement today; wounds are markedly imroved, no evidence of infected tissue, biopsies done. Objective Last Vital Signs Temp 36.7 C 10/07/24 08:12 Pulse 71 10/07/24 08:12 Resp 16 10/07/24 08:12 BP 91/49 L 10/07/24 08:12 Pulse Ox 96 10/07/24 08:12 PAWSS Have you Been Recently Intoxicated or Drunk Within the Last 30 days?: No Have you Ever Experienced Previous Episodes of Alcohol Withdrawal?: No Have you ever Experienced Withdrawal Seizures?: No Have you ever Experienced Delirium Tremens(DT)s?: No Have you ever undergone Alcohol Rehabilitation Treatment (i.e, inpt ot outpatient treatment programs)?: No Have you ever Experienced Blackouts?: No Have you ever Combined Alcohol with other Downers within the last 90 days?: No Have you ever Combined Alcohol with any other Substance of Abuse during the last 90 days?: No Positive Blood Alcohol level on Presentation? [PCS.BAL]: No Evidence of Increased Autonomic Activity (i.e. HR>120, tremor, sweating, agitation, nausea)?: No Result: 0 Time Spent with Patient Time Spent with Patient: 25-34 minutes Time was spent: preparing to see the patient(eg.review tests), obtaining and/or reviewing separately otained hiistory, ordering medications,tests, procedures, referring, communicating with other health healthcare financial analyst, indepentently interpreting results, counseling the patient and care coordination
--- NOTE | 2024-10-07 13:01 | W.ANESPRE ---
General Info Date of Service Date Performed: 10/07/24 Height: 5 ft 4 in Weight: 70.1 kg Body Mass Index (BMI): 26.5 Surgical Procedure: Operation Date: 10/07/24 14:10 Proposed Procedure Side Surgeon p Lower Leg Wound Debridement & Biopsy Bilateral Cate Argueta MD Meds Allergies and Home Medications Allergies Allergy/AdvReac Type Severity Reaction Status Date / Time Sulfa (Sulfonamide AdvReac Intermediate headache/ Unverified 10/04/24 13:03 Antibiotics) itching Home Medication ?Medication ?Instructions ?Recorded escitalopram oxalate 20 mg tablet 20 mg PO DAILY 06/23/18 (Lexapro) levothyroxine 100 mcg tablet 100 mcg PO DAILY 03/14/20 apixaban 5 mg tablet (Eliquis) 5 mg PO BID 10/04/24 Current Visit Medications: Current Medications Generic Name Dose Route Start Last Admin Trade Name Freq PRN Reason Stop Dose Admin Acetaminophen 650 mg 10/04/24 15:31 10/05/24 15:53 Acetaminophen 325 Mg Tab PO 650 mg Q4H PRN PRN Administration Apixaban 5 mg 10/07/24 20:00 Apixaban 5 Mg Tab PO BID COLTON Escitalopram Oxalate 20 mg 10/05/24 08:30 10/07/24 07:57 Escitalopram 20 Mg Tab PO 20 mg DAILY COLTON Administration Folic Acid 1 mg 10/05/24 08:30 10/07/24 07:57 Folic Acid 1 Mg Tab PO 10/11/24 08:31 1 mg QAM COLTON Administration Hydromorphone HCl 0.5 mg 10/04/24 19:13 10/07/24 07:59 Hydromorphone 2 Mg/Ml Syr IVP 0.5 mg Q4H PRN PRN Administration Sodium Chloride 1,000 mls @ 125 mls/hr 10/05/24 09:45 10/07/24 06:02 Saline 1000ml Bag IV 125 mls/hr INFUSION COLTON Administration Piperacillin Sod/Tazobactam 50 mls @ 12.5 mls/hr 10/05/24 20:00 10/07/24 12:42 Sod 3.375 gm/ Sodium Chloride IVPB 12.5 mls/hr Q8H COLTON Administration Vancomycin/PEG/NADA/Lysine/Water 1 gm in 200 mls @ 200 mls/hr 10/06/24 10:00 10/07/24 11:09 Vancocin Injection IVPB Infused Q12H COLTON Infusion IV Miscellaneous Supplies 1 each 10/04/24 12:45 Iv Access IV DIRECTED COLTON Levothyroxine Sodium 100 mcg 10/05/24 06:00 10/07/24 06:01 Levothyroxine 100 Mcg Tab PO 100 mcg DAILY@0600 COLTON Administration Lorazepam 0 mg 10/04/24 19:30 Lorazepam 1 Mg Tab PO/SL DIRECTED PRN Multivitamins 1 tab 10/05/24 08:30 10/07/24 07:57 Multivitamin Tab PO 10/11/24 08:31 1 tab QAM COLTON Administration Omeprazole 20 mg 10/07/24 07:30 10/07/24 07:58 Omeprazole 20 Mg Capcr PO 20 mg DAILY@0730 COLTON Administration Ondansetron HCl 4 mg 10/04/24 19:14 10/07/24 07:59 Ondansetron 4 Mg/2 Ml Vial IVP 4 mg Q4H PRN PRN Administration Polyethylene Glycol 17 gm 10/04/24 15:31 Polyethylene Glycol 3350 17 Gm Packet PO DAILY PRN PRN Constipation Sodium Chloride 0 ml 10/04/24 20:00 10/07/24 07:58 Normal Saline Flush 10 Ml Syr IVP 10 ml BID COLTON Administration Sodium Chloride 0 ml 10/04/24 12:32 Normal Saline 10 Ml Vial IJ DIRECTED PRN Sodium Chloride 0 ml 10/04/24 13:49 10/07/24 02:58 Normal Saline Flush 10 Ml Syr IVP 30 ml PRN PRN Administration Thiamine HCl 100 mg 10/05/24 08:30 10/07/24 07:57 Thiamine 100 Mg Tab PO 10/11/24 08:31 100 mg QAM COLTON Administration PFSH Active Problems Active Problems: Problem Status Onset Code On deep vein thrombosis (DVT) prophylaxis Acute Z79.899 Open wounds involving multiple regions of upper and lower extremities Acute S41.109A, S81.809A Hypokalemia Acute E87.6 Skin infection Acute L08.9 Wound of lower extremity Acute S81.809A Sepsis Acute A41.9 Vaginal atrophy Acute N95.2 Exposure to trichomonas Acute Z20.2 Traumatic vaginal laceration Acute S31.41XA Anticoagulant long-term use Acute Z79.01 Postcoital bleeding Acute N93.0 Pulmonary embolism with infarction Acute I26.99 Tubular adenoma Acute D36.9 Chronic GERD Acute K21.9 Pancreatitis Chronic K85.90 Right lower lobe pneumonia Resolved J18.1 Hypotension Resolved I95.9 Discharge planning issues Acute Z02.9 Nausea and vomiting Resolved R11.2 Ambulatory dysfunction Acute R26.2 Hypomagnesemia Resolved E83.42 Bilateral pulmonary embolism Acute I26.99 Pain and swelling of left upper extremity Acute M79.602, M79.89 Lung mass Acute R91.8 Pleuritic chest pain Acute R07.81 Abnormal mammogram Acute R92.8 Shortness of breath Acute R06.02 Polycythemia Acute D75.1 Chest pain Acute R07.9 Urinary urgency Acute R39.15 Breast lump Acute N63.0 Cannabis use disorder, mild, abuse Acute F12.10 Suicidal ideation Acute R45.851 PTSD (post-traumatic stress disorder) Acute F43.10 Abdominal pain, vomiting, and diarrhea Resolved R10.9, R11.10, R19.7 Hypokalemia Acute E87.6 Abnormal EKG Acute R94.31 Vomiting Resolved R11.10 Pancreatitis Resolved K85.90 UTI (urinary tract infection) Resolved N39.0 Alcohol withdrawal delirium Resolved F10.231 History of pulmonary embolus (PE) Chronic Z86.711 DVT prophylaxis Acute Z29.9 Discharge planning issues Acute Z02.9 Hypomagnesemia Acute E83.42 Peripheral neuropathy Acute G62.9 Ileus Resolved K56.7 Diarrhea Resolved R19.7 Chronic pulmonary embolism Chronic I27.82 Pulmonary infarct Acute I26.99 LUQ abdominal pain Acute R10.12 Osteoporosis Chronic M81.0 Lumbar vertebral fracture Acute Thoracic vertebral fracture Acute S22.009A Acute hyperkalemia Acute E87.5 VLADIMIR (acute kidney injury) Acute N17.9 AMS (altered mental status) Acute R41.82 Non-ST elevation DE (NSTEMI) Acute I21.4 Rhabdomyolysis Acute M62.82 Pneumonia Acute J18.9 CHF (congestive heart failure) Chronic I50.9 CAD (coronary artery disease) Chronic I25.10 ASCUS with positive high risk HPV Acute Ulcerative colitis Chronic K51.90 Pulmonary emboli Chronic I26.99 Depression Chronic F32.9 Anxiety Chronic F41.9 Hypothyroidism Chronic E03.9 Alcohol abuse Chronic F10.10 Medical History Medical History Hypokalemia Hx of myocardial infarction pt. states mild DE in april 2020 Surgical History Surgical History History of esophagogastroduodenoscopy (EGD) (~11/30/20) History of colonoscopy with polypectomy (~11/30/20) Hx of colonoscopy Hx of section Tobacco Smoking/Tobacco Use Status: Current every day Tobacco Type: cigarettes Smoking cigarettes per day: 10 Years smoked: 46 Alcohol Alcohol Intake: current Alcohol intake frequency: holidays/special occasions only Alcohol type: wine Substance Use Substance use: Daily Substance use type: marijuana Details: states last used marijuana .09.12 Vital Signs and Lab Results Vital Signs Most Recent Vital Signs in EMR: Most Recent Vital Signs Temp Pulse Resp BP Pulse Ox 36.7 C 71 16 91/49 L 96 10/07/24 08:12 10/07/24 08:12 10/07/24 08:12 10/07/24 08:12 10/07/24 08:12 Lab Results 10/06/24 05:46 10/06/24 05:46 Complete Blood Count: WBC, (4.4-10.8) 8.29 10^3/uL 10/06/24, 05:46 RBC, (3.93-5.22) 3.39 10^6/uL L 10/06/24, 05:46 Hgb, (11.2-15.7) 10.4 g/dL L Δ 10/06/24, 05:46 Hct, (36.0-46.0) 32.8 % L 10/06/24, 05:46 Plt Count, (130-400) 308 10^3/uL 10/06/24, 05:46 VBG Lactate, (<or=2.0) 1.7 mmol/L 10/04/24, 12:45 Complete Metabolic Panel: Sodium, (136-145) 138 mmol/L 10/06/24, 05:46 Potassium, (3.5-5.1) 3.7 mmol/L 10/06/24, 05:46 Chloride, (98-107) 106 mmol/L 10/06/24, 05:46 Carbon Dioxide, (21.0-32.0) 20.4 mmol/L L 10/06/24, 05:46 BUN, (7-18) 9 mg/dL 10/06/24, 05:46 Creatinine, (0.55-1.02) 0.7 mg/dL 10/06/24, 05:46 Est GFR (CKD-EPI 2020), (mL/min/1.73m2) 94.73 10/06/24, 05:46 Magnesium, (1.8-2.4) 2.0 mg/dL 10/06/24, 05:46 Calcium, (8.5-10.1) 8.0 mg/dL L 10/06/24, 05:46 Albumin, (3.4-5.0) 2.9 g/dL L 10/04/24, 12:05 Glucose, (74-106) 115 mg/dL H 10/06/24, 05:46 C-Reactive Protein, (<or=0.5) 22.58 mg/dL H 10/06/24, 05:46 Liver Function Panel: ALT, (14-59) 11 U/L L 10/04/24, 12:05 AST, (15-37) 14 U/L L 10/04/24, 12:05 Coagulation Panel: INR, (0.9-1.1) 1.0 10/04/24, 12:05 PT, (9.1-11.1) 10.4 sec 10/04/24, 12:05 Cardiac Panel: Troponin I, (<or=51) 13 ng/L 10/04/24 Toxicology Panel: Ur Amphetamines Screen, (Negative) Negative 10/05/24, 12:30 U Benzodiazepines Scrn, (Negative) Negative 10/05/24, 12:30 Ur Barbiturates Screen, (Negative) Negative 10/05/24, 12:30 Urine Cocaine Screen, (Negative) Positive A 10/05/24, 12:30 Urine Methadone Screen, (Negative) Negative 10/05/24, 12:30 Urine Opiates Screen, (Negative) Positive A 10/05/24, 12:30 Ur Tricyclics Screen, (Negative) Negative 10/05/24, 12:30 Ur THC Screen, (Negative) Positive A 10/05/24, 12:30 Imaging and Studies Imaging and Studies Study information below may be from another EMR and interpreted by another provider. Please see original notes in EMR for more complete details. EKG Summary: 10/12/2020: Exam: Resting ECG Reason for Exam: preOp Patient Location: O HR:67 bpm ECG Measurements Heart Rate 67 AXIS LA 149 P 64 QRSd 73 QRS 45 QT 401 T32 QTc 424 Conclusion Sinus rhythm...normal P axis, V-rate 60- 99 Stress Test Summary: 11/19/2020: Stress ECG Conclusion 1. Resting electrocardiogram showed nondiagnostic anterior ST-T abnormalities 2. The patient exercised on the Jose protocol and completed a workload of 7 METS, limited by shortness of breath 3. Normal heart rate and blood pressure response to exercise. The patient achieved 86% of predicted heart rate for age 4. Electrocardiographically there was no evidence of myocardial ischemia 5. There was a 4 beat run of nonsustained ventricular tachycardia seen in early recovery Echocardiogram Summary: 03/14/2020: Conclusion Left Ventricle : The left ventricle is normal size. The left ventricular systolic function is normal. The left ventricular ejection fraction is within the normal range. There is normal left ventricular wall thickness. There is normal LV segmental wall motion. The left ventricular diastolic function is normal. LVEF is 50%. Right Ventricle : The right ventricle is normal size. The right ventricular systolic function is normal. Estimated RVSP is 21 mmHg. Atria : The left atrium size is normal. The right atrium size is normal. Valves: There are no hemodynamically significant valvular lesions. Please see remainder of study for further details. Compared to study from 08/30/2019, there is no significant change. Anesthesia Assessment and Plan Anesthesia History Personal History: No History of Anesthesia Complications Family History: No Family History of Anesthesia Complications Exercise Tolerance Exercise Tolerance: Metabolic Equivalents>4 Cardiac & Pulmonary Exam Cardiac Exam: Normal S1/S2 Heart Sounds Pulmonary Exam: Clear Bilateral Breath Sounds Implantable Cardiac Device Does patient have a Pacemaker or an ICD?: No Airway Exam Known Difficult Airway: Yes Mallampati Class: 1 Mouth Opening: Normal (> 3cm) Thyromental Distance: Greater than 3 cm Neck Range of Motion: Full ROM Neck Circumference: Normal Teeth Condition: Normal Dentition ASA Classification ASA Score: ASA 3 Emergency Case?: No NPO Status NPO Status: NPO Clears >2 hours, Solids >8 hours Anesthesia Plan Resuscitation Status: Full Code Anesthesia Technique: General Anesthesia Airway Planned: Natural Airway Monitors Used: Standard Monitors Preoperative Comments:: 69 yo female for LE debridement. Sig PMHx: NSTEMI, CHF, GERD, recurrent PE/DVT, hypothyroid, PTSD/depression/anxiety. Smoker. daily cannabis. ECHO: LVEF 55%. no sig valve issues. Stress: EF 87%, no perfusion defect. Previous Anes: - vag lac repair, ketamine/prop, natural airway, no issues. - EGD/colo, prop, mac 3 grade 1, no issues.
--- NOTE | 2024-10-07 14:36 | SKI_PTH ---
PATIENT: Martina Kuhn LOC: [id number]#:[id number] AGE/SX: 69/F ROOM: 227 RE10/04/[address]: Ron Beyer : 1955 BED: A DIS: 10/10/2024 SPEC #: [id number] RECD: 10/07/24 15:47 STATUS: RAMYA REQ #: [id number] EVER: 10/07/24 14:[address]: Ron Beyer DEPT: Surgical Specimen RECD BY: [place] ENTERED: 10/07/24 15:48 SP TYPE: TAY FARAH DR: Cate Argueta MD InPatient Rachid Brandon Unknown,Unknown Tissues: 1 - SKIN BIOPSY(SHAVE/PUNCH) Procedures: SKIN LEVEL 4 Comments: [id number]
[2024-10-07] MEDS: Lidocaine 1% Pres-Free W/EPI 1/200,000 10 ML VIAL (14:42)
[2024-10-07] MEDS: Bupivacaine 0.5% Pres-Free W/EPI 30 ML VIAL (14:42)
--- NOTE | 2024-10-07 15:04 | ROE_ITS ---
Operative Note Operative Note PRE-OP DIAGNOSIS: bilateral lower extremity wounds POST-OP DIAGNOSIS: same PROCEDURE: Excisional debridement and wound biopsy of bilateral lower extremity wounds SURGEON: Cate Argueta ANESTHESIA TYPE: Local By Surgeon and General LMA/ETT Refer to Anesthesia Record ESTIMATED BLOOD LOSS: 5 PATHOLOGY: other (right lower leg wound biopsy) COMPLICATIONS: None Procedure Description: This patient is a 69-year-old female admitted with sepsis and found to have bilateral lower extremity wounds that were extensive and open. They were very painful and there was evidence of cellulitis from the left leg on imaging. DVT was ruled out from the left leg exam. Wound cultures from the lower legs were negative for growth. Blood cultures were negative for growth. Exam of the wounds revealed they were not infected however cellulitis of the legs around the wounds was evident. The wound etiology was unclear, but these wounds were recurring and very painful. Wound debridement would not be successful at bedside due to severe pain and so debridement in the operating room was planned. We also planned a wound biopsy to help determine the etiology of the wound to aid and guide treatment. The procedure was discussed with the patient including procedure risks benefits alternatives and expectations. Informed consent was obtained. In the operating room the patient was placed supine on the operating table. General anesthesia was induced and timeout was performed. The lower legs were prepped and draped circumferentially. Bilateral lower extremity wounds were examined. There was significant interval improvement of the wounds on the an tibiotics. The left anterior leg had 2 areas of wounding that measured in aggregate 2 cm and 5 cm round. These were both greatly improved from prior examination. The right lower extremity had 5 areas of wound, also both significantly improved from prior examination prior to the antibiotics. The aggregate of wounds on the right lower extremity measured approximately 5 cm x 5 cm. Local anesthetic was infiltrated into the skin and subcutaneous tissues around the wounds. A Versajet, scalpel, and forceps were used to debride the entirety of the wounds. Nonviable skin, exudate, and subcutaneous tissue were removed. The Versajet was used to debride the open areas only. A 15 blade scalpel and a forcep were used to take a 5 mm? biopsy of a right lower extremity wound for diagnosis. It was placed in formalin and passed off the field. Point cautery was used for hemostasis. The wounds were washed and dried and Vaseline gauze was placed over the sites. ABDs were placed over the wounds and the legs were wrapped in Kerlix. All sponge and instrument counts were correct at the end of the case the patient tolerated the procedure well. She woke from anesthesia in the operating room and transferred to the recovery room in stable condition The patient should return to her room. She may resume a regular diet and resume all previous medications. She should resume her anticoagulation this evening. Biopsy results will be followed up on. Date of Procedure: 10/07/24
--- NOTE | 2024-10-07 15:22 | W.ANESPOSTOP ---
Postoperative Evaluation Date, Time and Location Date Performed: 10/07/24 Time Performed: 15:22 Patient Location: PACU Vital Signs Most Recent Imported Vital Signs: Most Recent Vital Signs Temp Pulse Resp BP Pulse Ox 36.6 C 66 13 112/57 L 96 10/07/24 15:15 10/07/24 15:15 10/07/24 15:15 10/07/24 15:15 10/07/24 15:15 Pain Score Most Recent Pain Score: Most Recent Pain Score Pain Level [Bilateral Leg] 7 10/06/24 00:09 Pain Level 0 10/07/24 15:17 Assessment Mental Status: Awake (Alert & Oriented to Patient Baseline) Airway and Respiratory Function: Patent airway with normal (patient baseline) respiratory exam Cardiovascular Function: Hemodynamically Stable Hydration Status: Adequately Hydrated Nausea & Vomiting: No Nausea or Vomiting Pain: Pain is tolerable per patient Peripheral Nerve Block: Patient did not receive a nerve block
[2024-10-07] MEDS: Apixaban 5 MG TAB PO (20:05)
[2024-10-08] MEDS: HYDROmorphone 2 MG/ML SYR 0.5 MG IVP ×4 (03:29→16:48)
[2024-10-08] MEDS: PIPERACILLIN/TAZO 3.375 GM in Normal Saline 50 ML IVPB ×3 (03:29→20:04)
[2024-10-08] MEDS: Normal Saline 1,000 ML 125 ML IV ×3 (05:46→22:12)
[2024-10-08] MEDS: Levothyroxine 100 MCG TAB PO (05:47)
[2024-10-08 07:34] VITALS: BP 112/71; PULSE 75; RESP 16; TEMP 36.9; O2SAT 94
[2024-10-08] MEDS: Apixaban 5 MG TAB PO ×2 (08:54→20:04)
[2024-10-08] MEDS: Escitalopram 20 MG TAB PO (08:54)
[2024-10-08] MEDS: Omeprazole 20 MG CAPCR PO (08:54)
[2024-10-08] MEDS: Normal Saline Flush 10 ML SYR IVP ×3 (08:55→22:16)
[2024-10-08] MEDS: Ondansetron 4 MG/2 ML VIAL IVP (08:55)
[2024-10-08] MEDS: VANCOMYCIN/WATER (PEG) 1 GM/200 ML BAG IVPB ×2 (08:55→22:11)
[2024-10-08 11:34] VITALS: BP 108/63; PULSE 71; RESP 16; TEMP 36.3; O2SAT 91
--- NOTE | 2024-10-08 12:28 | W.PM.PROGNOT ---
Date of Service Date of service: 10/08/24 Time of Service: 12:15 Assessment and Plan Assessment and plan (1) Pyoderma gangrenosum: Status: Acute Assessment and plan: 69-year-old woman with chronic wounds that she tells me have been going on for more than a year. There are mostly affecting her upper extremities and lower extremities with the lower extremities being the worst. She does have some lesions on her back as well she says. The purple?tinge/you to the tissue around these wounds does seem pretty similar to a classic description of pyoderma gangrenosum from a visual aspect. Biopsies were taken at the wound debridement yesterday and hopefully that will reveal the underlying explanation for this. I do not get a sense clinically that these are infected wounds and getting them to heal may require significant anti-inflammatory and anti-immune therapy in conjunction with everything else. I do not think this is an infectious or bacterial situation. Nothing further to do from surgery. Basic wound care is all that we recommend. Biopsy results will be followed up in the outpatient setting. Surgery signing off Subjective Subjective Interval history since last seen: The patient has no complaints. No overnight issues and no clinical changes. Debridement was performed yesterday. Pain with the wounds is not significant unless they are touched. We discussed the possibility of going home and she says not until I can walk. Exam Narrative Exam Narrative: Gen: Non-toxic, comfortable and interactive. Does not appear to be any significant discomfort or pain whatsoever. Neuro: Alert and oriented x3 Psych: Good mood and affect. Good insight and understanding into condition. Chest: Non-labored breathing, no wheezing, no visible shortness of breath. Heart: Regular Left upper extremity: Multiple wounds in various stages of healing. Nothing open and nothing appears infected but there is significant discoloration and a purpleish?hue to the soft tissue around the wounds. Lower extremities: The bandages were taken down. Open wounds are visible and all appear to have viable tissue. There is significant and impressive amounts of purple?hue discoloration in the circumferential tissue around the wounds. These areas are not painful but the wounds themselves are quite uncomfortable when the Xeroform is removed. I do not appreciate anything that looks like active cellulitis or uncontrolled infection. Objective Last Vital Signs Temp 97.3 F L 10/08/24 11:34 Pulse 71 10/08/24 11:34 Resp 16 10/08/24 11:34 BP 108/63 10/08/24 11:34 Pulse Ox 91 L 10/08/24 11:34 PAWSS Have you Been Recently Intoxicated or Drunk Within the Last 30 days?: No Have you Ever Experienced Previous Episodes of Alcohol Withdrawal?: Yes Have you ever Experienced Withdrawal Seizures?: No Have you ever Experienced Delirium Tremens(DT)s?: No Have you ever undergone Alcohol Rehabilitation Treatment (i.e, inpt ot outpatient treatment programs)?: Yes Have you ever Experienced Blackouts?: Yes Have you ever Combined Alcohol with other Downers within the last 90 days?: No Have you ever Combined Alcohol with any other Substance of Abuse during the last 90 days?: No Positive Blood Alcohol level on Presentation? [PCS.BAL]: No Evidence of Increased Autonomic Activity (i.e. HR>120, tremor, sweating, agitation, nausea)?: No Result: 3 Time Spent with Patient Time Spent with Patient: <25 minutes Time was spent: preparing to see the patient(eg.review tests), obtaining and/or reviewing separately otained hiistory, ordering medications,tests, procedures, referring, communicating with other health long term care phlebotomist, indepentently interpreting results, counseling the patient, care coordination and other (Wound care)
--- NOTE | 2024-10-08 14:27 | W.PM.PROGNOT ---
Date of Service Date of service: 10/08/24 Time of Service: 14:27 Assessment and Plan Assessment and plan (1) Sepsis: Status: Resolved Assessment and plan: Septic on arrival, appropriate interventions in ED October 05 hypotension, transferred to ICU, no pressors needed, returned to floor Sepsis is resolved as of October 06 10/08/24 VSS (2) Skin infection: Status: Acute Assessment and plan: Multiple skin wounds, history of GAS and MRSA, appropriate interventions since admission for debridement and wound care. Blood cultures NGTD. Aorta CTA w runoff: no evidence of vasculopathy OR for debridement October 07, biopsy pending, rule out pyoderma gangrenosum et al Continue broad spectrum antibiotics. Continue PRN pain management; post-op narcotics appropriate, taper and home plan will be challenging (3) Anxiety: Status: Chronic Assessment and plan: Discontinued benzos (4) Hypothyroidism: Status: Chronic Assessment and plan: Continue home levothyroxine (5) Alcohol abuse: Status: Chronic Assessment and plan: Hx of alcohol intake -last drink is unclear Not scoring on CIWA- was d/c'ed (6) Depression: Status: Chronic Assessment and plan: Continue home escitalopram (7) CAD (coronary artery disease): Status: Chronic Assessment and plan: Discontinued telemetry (8) CHF (congestive heart failure): Status: Chronic Assessment and plan: Oct 06 echo showing EF 55%, no evident valvular disease (9) Hypokalemia: Status: Resolved Assessment and plan: Resolved (10) On deep vein thrombosis (DVT) prophylaxis: Status: Acute Assessment and plan: Apixaban resumed Subjective Subjective Interval history since last seen: PT seen and examined in her room this am. POC d/w pt at bedside/nurse during MDR/ GS. Pt does not have any new complaints. Rates pain 7-10 Exam Narrative Exam Narrative: heent-ncat mmm neck- no lad no jvd cv-rrr no mrg lungs-ctab no amu abd-sntndbsa ext-bandaged bilat Objective Last Vital Signs Temp 36.3 C L 10/08/24 11:34 Pulse 71 10/08/24 11:34 Resp 16 10/08/24 11:34 BP 108/63 10/08/24 11:34 Pulse Ox 91 L 10/08/24 11:34 PAWSS Have you Been Recently Intoxicated or Drunk Within the Last 30 days?: No Have you Ever Experienced Previous Episodes of Alcohol Withdrawal?: Yes Have you ever Experienced Withdrawal Seizures?: No Have you ever Experienced Delirium Tremens(DT)s?: No Have you ever undergone Alcohol Rehabilitation Treatment (i.e, inpt ot outpatient treatment programs)?: Yes Have you ever Experienced Blackouts?: Yes Have you ever Combined Alcohol with other Downers within the last 90 days?: No Have you ever Combined Alcohol with any other Substance of Abuse during the last 90 days?: No Positive Blood Alcohol level on Presentation? [PCS.BAL]: No Evidence of Increased Autonomic Activity (i.e. HR>120, tremor, sweating, agitation, nausea)?: No Result: 3 Time Spent with Patient Time Spent with Patient: 25-34 minutes Time was spent: preparing to see the patient(eg.review tests), obtaining and/or reviewing separately otained hiistory, ordering medications,tests, procedures, referring, communicating with other health healthcare insurance sales agent, indepentently interpreting results, counseling the patient and care coordination
[2024-10-08 15:30] VITALS: BP 106/64; PULSE 76; RESP 16; TEMP 36.4; O2SAT 94
[2024-10-08 20:42] VITALS: BP 135/69; PULSE 81; RESP 20; TEMP 36.7; O2SAT 94
[2024-10-09] VITALS (8 sets, daily range): BP systolic 101–141; BP diastolic 55–80; PULSE 65–77; RESP 16–20; TEMP 36.2–37.1; O2SAT 88–96
[2024-10-09] MEDS: HYDROmorphone 2 MG/ML SYR 0.5 MG IVP ×6 (00:13→21:24)
[2024-10-09] MEDS: PIPERACILLIN/TAZO 3.375 GM in Normal Saline 50 ML IVPB ×3 (04:06→19:40)
[2024-10-09] MEDS: Levothyroxine 100 MCG TAB PO (06:00)
[2024-10-09] MEDS: Normal Saline 1,000 ML 125 ML IV (06:46)
[2024-10-09] MEDS: Omeprazole 20 MG CAPCR PO (08:00)
[2024-10-09] MEDS: Apixaban 5 MG TAB PO ×2 (08:00→19:40)
[2024-10-09] MEDS: Escitalopram 20 MG TAB PO (08:00)
[2024-10-09] MEDS: Normal Saline Flush 10 ML SYR IVP ×5 (08:01→19:44)
[2024-10-09 08:13] LABS: Estimated GFR 102.73 (mL/min/1.73m2)
[2024-10-09 08:38] LABS: Vancomycin, Random 12.0 ug/mL
--- NOTE | 2024-10-09 09:21 | W.PM.PROGNOT ---
Date of Service Date of service: 10/09/24 Time of Service: 09: Assessment and Plan Assessment and plan (1) Sepsis: Status: Resolved Assessment and plan: Septic on arrival, appropriate interventions in ED October 05 hypotension, transferred to ICU, no pressors needed, returned to floor Sepsis is resolved as of October 06 10/08/24 VSS 10/09/24 Pt on vanc and zosyn, will d/w GS endpoint for abx coverage after surgical correction (2) Skin infection: Status: Acute Assessment and plan: Multiple skin wounds, history of GAS and MRSA, appropriate interventions since admission for debridement and wound care. Blood cultures NGTD. Aorta CTA w runoff: no evidence of vasculopathy OR for debridement October 07, biopsy pending, rule out pyoderma gangrenosum et al Continue broad spectrum antibiotics. Continue PRN pain management; post-op narcotics appropriate, taper and home plan will be challenging (3) Anxiety: Status: Chronic Assessment and plan: Discontinued benzos (4) Hypothyroidism: Status: Chronic Assessment and plan: Continue home levothyroxine (5) Alcohol abuse: Status: Chronic Assessment and plan: Hx of alcohol intake -last drink is unclear Not scoring on CIWA- was d/c'ed (6) Depression: Status: Chronic Assessment and plan: Continue home escitalopram (7) CAD (coronary artery disease): Status: Chronic Assessment and plan: Discontinued telemetry (8) CHF (congestive heart failure): Status: Chronic Assessment and plan: Oct 06 echo showing EF 55%, no evident valvular disease (9) Hypokalemia: Status: Resolved Assessment and plan: Resolved (10) On deep vein thrombosis (DVT) prophylaxis: Status: Acute Assessment and plan: Apixaban resumed (per chart review, pt has had multiple dvt's in past) (11) Lung mass: Status: Acute Assessment and plan: 2cm RLL nodule present on ct since at least 09/04/2018. Recommend follow up with Pulm/CC in the outpatient setting at the discretion of her PCP. CT report 10/23/20 IMPRESSION: 1. 2 cm nodular density along the posterior wall of the right lower lobe. This has been present on prior examinations dating back to 2019. Further imaging with PET-CT should be considered. 2. Thoracic and lumbar compression fracture deformities. There has been progression of the T9 compression fracture since 07/10/2020. (12) Thoracic compression fracture: Status: Acute Assessment and plan: Noted on prior exams as well. Outpatient follow up at the discretion of PCP Subjective Subjective Interval history since last seen: pain 8 after wounds evaluated Exam Narrative Exam Narrative: heent-ncat mmm neck- no lad no jvd cv-rrr no mrg lungs-ctab no amu abd-sntndbsa ext-wounds exposed bilat. 1plus MOHINDER bilat, dp/pt intact, decreasing erythema Objective Last Vital Signs Temp 36.5 C 10/09/24 08:06 Pulse 68 10/09/24 08:06 Resp 16 10/09/24 08:06 BP 133/76 10/09/24 08:06 Pulse Ox 95 10/09/24 08:06 Laboratory Results - last 24 hr 10/09/24 07:58 Creatinine 0.5 L Est GFR (CKD-EPI 2020) 102.73 Random Vancomycin 12.0 PAWSS Have you Been Recently Intoxicated or Drunk Within the Last 30 days?: No Have you Ever Experienced Previous Episodes of Alcohol Withdrawal?: Yes Have you ever Experienced Withdrawal Seizures?: No Have you ever Experienced Delirium Tremens(DT)s?: No Have you ever undergone Alcohol Rehabilitation Treatment (i.e, inpt ot outpatient treatment programs)?: Yes Have you ever Experienced Blackouts?: Yes Have you ever Combined Alcohol with other Downers within the last 90 days?: No Have you ever Combined Alcohol with any other Substance of Abuse during the last 90 days?: No Positive Blood Alcohol level on Presentation? [PCS.BAL]: No Evidence of Increased Autonomic Activity (i.e. HR>120, tremor, sweating, agitation, nausea)?: No Result: 3 Time Spent with Patient Time Spent with Patient: >50 minutes Time was spent: preparing to see the patient(eg.review tests), obtaining and/or reviewing separately otained hiistory, ordering medications,tests, procedures, referring, communicating with other health healthcare architect, indepentently interpreting results, counseling the patient and care coordination
[2024-10-09] MEDS: HYDROmorphone 2 MG/ML SYR IVP (09:41)
[2024-10-09] MEDS: VANCOMYCIN/WATER (PEG) 1.5 GM/300 ML BAG IVPB ×2 (10:30→21:23)
--- NOTE | 2024-10-09 12:17 | IN_ITS ---
PT Notes Visit Reasons: Sepsis, infected skin lesions Physical Therapy Day Surgery Initial Evaluation Date: 10/09/2024 Referring Doctor: Dr. Huitron PT Orders: PT CONSULT: PT evaluation and treat Precautions: Wounds bilateral upper extremity and lower extremity, IV access positive MRSA in wounds Patient Profile/Admitting Diagnosis: Martina is a 69-year-old female presented to the ED on 10/03/2024 with worsening pain and bilateral lower extremity wounds. Patient initially admitted to the MedSurg unit with sepsis and transferred into ICU secondary to hypotension. Patient seen by Dr. Cardenas in OR for I&D of wound and biopsies. Patient was referred to PT to progress with ambulation prior to discharge to home PMHX: Skin infection (Acute) Wound of lower extremity (Acute) Sepsis (Acute) Vaginal atrophy (Acute) Exposure to trichomonas (Acute) Prescription for metronidazole sent to the pharmacy 06/25/2023.Traumatic vaginal laceration (Acute) Repaired in the ORAnticoagulant long-term use (Acute) Postcoital bleeding (Acute) Pulmonary embolism with infarction (Acute) Tubular adenoma (Acute) repeat CE in 3 yrs timeChronic GERD (Acute) Pancreatitis (Chronic) Discharge planning issues (Acute) Ambulatory dysfunction (Acute) Bilateral pulmonary embolism (Acute) Pain and swelling of left upper extremity (Acute) Lung mass (Acute) Pleuritic chest pain (Acute) Abnormal mammogram (Acute) benign tissueShortness of breath (Acute) Polycythemia (Acute) Chest pain (Acute) Urinary urgency (Acute) Breast lump (Acute) Cannabis use disorder, mild, abuse (Acute) Suicidal ideation (Acute) PTSD (post-traumatic stress disorder) (Acute) Hypokalemia (Acute) Abnormal EKG (Acute) History of pulmonary embolus (PE) (Chronic) DVT prophylaxis (Acute) Discharge planning issues (Acute) Hypomagnesemia (Acute) Peripheral neuropathy (Acute) Chronic pulmonary embolism (Chronic) Pulmonary infarct (Acute) LUQ abdominal pain (Acute) Osteoporosis (Chronic) Lumbar vertebral fracture (Acute) Thoracic vertebral fracture (Acute) Acute hyperkalemia (Acute) VLADIMIR (acute kidney injury) (Acute) AMS (altered mental status) (Acute) Non-ST elevation MT (NSTEMI) (Acute) Rhabdomyolysis (Acute) Pneumonia (Acute) CHF (congestive heart failure) (Chronic) CAD (coronary artery disease) (Chronic) ASCUS with positive high risk HPV (Acute) Ulcerative colitis (Chronic) Pulmonary emboli (Chronic) Depression (Chronic) Anxiety (Chronic) Hypothyroidism (Chronic) Alcohol abuse (Chronic) Medical History Hx of myocardial infarction pt. states mild MT in april 2020 Surgical History History of esophagogastroduodenoscopy (EGD) (~11/30/20) History of colonoscopy with polypectomy (~11/30/20) Hx of colonoscopy Hx of section Social History/Home Situation: Patient resides alone in an apartment with 5?7 steps to enter with rail. Patient reports independent with ADLs and ambulation prior to onset of wounds independent meal prep. She utilizes [employer] for transportation Equipment Owned/DME: None patient will need FWW secondary to limited weightbearing through left lower extremity due to pain Subjective: Patient states she knows she has to do it but is fearful of pain increasing. She states she cannot put her left foot completely on the floor due to the pain so she stands on her toes. Objective: [] General Observation: Female disheveled supine in bed IV infusing bilateral upper and lower extremities with bandages in place. Mental Status: Alert and oriented x 4, able to follow instructions Limited participation due to pain in lower extremities when in dependent position or weightbearing Pain: Bilateral lower extremities left greater than right 8/10 with touch or weightbearing ROM: [] BUE: WFL Left lower Extremity: Hip and knee within normal limits; ankle dorsiflexion with knee extension -5 degrees secondary to pain Right lower Extremity: WFL except dorsiflexion to neutral Strength: [] BUE: 5/5 Right Lower Extremity: Grossly 3/5 except plantarflexion 2+/5 due to pain at wound sites Left Lower Extremity: Hip and knee 3/5; ankle 2/5 limited by pain Sensation: Intact patient hypersensitivity to touch bilateral lower extremities Bed Mobility/Transfers: [] Supine to sit independent Sit to stand SBA cues for hand placement increased weight shift to right lower extremity Stand to sit SBA cues for hand placement increased weight shift to the right lower extremity Bed to chair SBA with FWW Limited weightbearing through left lower extremity Gait: Ambulated with FWW 20 feet CGA. Pt unable to achieve left foot flat. Pt WB through toes on Left antalgic , diminished step length B Increased WB through BUE to advance right LE Balance: [] Static Sitting: Normal Dynamic Sitting: Good Static Standing: Fair with limited weightbearing through left lower extremity secondary to pain Dynamic Standing: Fair minus requires bilateral upper extremity support Special Tests: [] Mobility Limitations Standardized Measure [] [facility] 6 clicks Basic Mobility Inpatient Short Form: [] Raw Score: 19 CMS Score: 41.77% Informed Consent/Education: Patient instructed in purpose of PT consult. Assessment: Patient is a 69-year-old female who presents with clinical signs and symptoms consistent with current/admitting diagnoses that have resulted to mobility limitations, gait instability, generalized weakness, and impairment of motor control as demonstrated by the following impairment level findings: 1. Decreased strength to BLE major muscle groups L>R 2. Impaired standing balance 3. Limitation of joint range of motion in left ankle 4. Pain bilateral lower extremities with weightbearing left greater than right 5. Impaired functional activity tolerance 6. Impaired skin integrity BUE/BLE Impairments are contributing to the following functional limitations: 1. Inability to safely ambulate without assistive device 2. Increase completion time for mobility ADL performance 3. Increased fall risk 4. Decline in transfer skills 5. Difficulty performing stairs safely. 6. AM-PAC score Patient is assessed as a low complexity based on the following: History: 69-year-old female with impairment level findings, functional limitations, and past medical history as indicated above Examination: Demonstrable impairment in strength, balance, and mobility level with underlying impairments and functional limitations as documented above Presentation: Stable Decision Making: Low Goals: 1. Independent transfers with least restrictive device without increased pain left lower extremity 2. Independent ambulation with least restrictive device greater than 50 feet demonstrating ability to place left foot flat without increase pain 3. Increase dorsiflexion left foot to neutral with knee extension 4. Perform 5 steps with rail supervision to safely enter and exit home 5. Independent with home exercise program to improve strength and range of motion BLE Plan of Care/Treatment Plan: 1-2x/day, 7 days/week x 1 week. Plan of care has been reviewed with the [employer]KER providing the service under Physical Therapy direction. Initiate Physical Therapy intervention for strengthening, bed mobility, transfers, gait, stairs, balance training, use of assistive device. DISCHARGE RECOMMENDATIONS: SNF versus home with HH PT (patient declining SNF placement) TREATMENT CODE/TIME: 56851/1144?1210 Thank you for the opportunity to participate in the care of this patient. Duyen Samano, PT [facility]
[2024-10-10] MEDS: HYDROmorphone 2 MG/ML SYR 0.5 MG IVP ×3 (04:44→13:10)
[2024-10-10] MEDS: PIPERACILLIN/TAZO 3.375 GM in Normal Saline 50 ML IVPB ×2 (04:45→11:11)
[2024-10-10 05:06] VITALS: BP 126/70; PULSE 67; RESP 20; TEMP 36.3; O2SAT 92
[2024-10-10] MEDS: Levothyroxine 100 MCG TAB PO (05:06)
[2024-10-10 06:10] LABS: Abs Immature Grans 0.07 10^3/uL (0.0-0.06); HCT 32.4 % (36.0-46.0); HGB 10.6 g/dL (11.2-15.7); Immature Grans % 1.1 %; MCH 31.2 pg (27.0-33.0); MCHC 32.7 % (32.0-36.0); MCV 95 fL (80-95); MPV 9.4 fL (8.0-11.0); Platelet Count 437 10^3/uL (130-400); RBC 3.40 10^6/uL (3.93-5.22); RDW 14.3 % (11.7-14.6); RDW-SD 50.6 fL; WBC 6.65 10^3/uL (4.4-10.8)
[2024-10-10 06:40] LABS: ALT 13 U/L (14-59); AST 13 U/L (15-37); Albumin 2.1 g/dL (3.4-5.0); Alkaline Phosphatase 51 U/L (46-116); Anion Gap 9.6 mmol/L (3-11); BUN 4 mg/dL (7-18); Bilirubin, Total 0.2 mg/dL (0.2-1.0); CO2 25.4 mmol/L (21.0-32.0); Calcium 8.7 mg/dL (8.5-10.1); Chloride 108 mmol/L (98-107); Estimated GFR 98.32 (mL/min/1.73m2); Glucose 94 mg/dL (74-106); Potassium 3.4 mmol/L (3.5-5.1); Sodium 143 mmol/L (136-145); Total Protein 6.1 g/dL (6.4-8.2)
[2024-10-10 07:45] VITALS: BP 115/78; PULSE 69; RESP 19; TEMP 36.3; O2SAT 91
[2024-10-10] MEDS: Normal Saline Flush 10 ML SYR IVP ×2 (07:52→09:07)
[2024-10-10] MEDS: Apixaban 5 MG TAB PO (07:52)
[2024-10-10] MEDS: Escitalopram 20 MG TAB PO (07:52)
[2024-10-10] MEDS: Omeprazole 20 MG CAPCR PO (07:52)
[2024-10-10] MEDS: VANCOMYCIN/WATER (PEG) 1.5 GM/300 ML BAG IVPB (09:08)
--- NOTE | 2024-10-10 09:36 | PTTR_ITS ---
PT Notes Visit Reasons: Sepsis, infected skin lesions Date: 10/10/2024 PRECAUTIONS: Wounds bilateral upper extremity and lower extremity, IV access positive MRSA in wounds SUBJECTIVE: Pt in bed when approached for therapy this morning, pt agreed to participating with therapy session after taking pain meds and breakfast. Pt sitting on the EOB when approached for this afternoon's session, agreed to participating with stair training prior to DC. OBJECTIVE: ? PAIN: 10/02 for LLE pain, 09/01 for RLE pain VITALS: monitored by nursing Therapeutic Activities 33648: Direct one-on-one instruction in dynamic activities to improve functional performance. ?? BED MOBILITY/TRANSFERS? Rolling L/R: supervision Supine-sit: ? SBA? Sit-supine: ? SBA? Sit-stand: ? SBA ? Stand-sit: ?SBA? Bed-Chair:? SBA? Chair-bed: SBA Provided skilled cues and instruction on performance and technique throughout. Gait Training 08368: Direct one-on-one instruction and skilled instruction in: Employing an assistive device Modified weight-bearing status Movement sequencing Turning and movement with proper form Provided verbal cues for equipment management and technique Provided instruction in gait pattern Patient education regarding pacing and breathing techniques to maximize activity tolerance? GAIT? Assistive Device: ?FWW ? Weight bearing: WBAT Assist: ? SBA ? Distance:??5steps ?(am), 20'x2 (pm) ? Deviation: ?antalgic ?bilateral? ? Stairs: 1 handrail sideways step to gait ? 6x2, 4x3? up/down SBA? Therapeutic Exercises 81196: Direct one-on-one instruction in therapeutic exercises to develop strength, endurance, range of motion and flexibility. Exercises Access Code: [email or web address] URL: [email or web address] Date: 10/10/2024 Prepared by: Anupam Buckley Exercises - Sit to Stand with Counter Support - 1 x daily - 7 x weekly - 1 sets - 10 reps - Seated March - 1 x daily - 7 x weekly - 1 sets - 10 reps - Seated March - 1 x daily - 7 x weekly - 1 sets - 10 reps - Seated Long Arc Quad - 1 x daily - 7 x weekly - 1 sets - 10 reps - Supine Straight Leg Raise - 1 x daily - 7 x weekly - 1 sets - 10 reps - Supine Heel Slide - 1 x daily - 7 x weekly - 1 sets - 10 reps - Supine Single Knee to Chest - 1 x daily - 7 x weekly - 1 sets - 10 reps - Supine Clamshell - 1 x daily - 7 x weekly - 1 sets - 10 reps - Supine Active Ankle Pumps - 1 x daily - 7 x weekly - 1 sets - 10 reps ? Provided skilled instruction in proper exercise performance Provided skilled manual cues to facilitate proper muscle recruitment and/or form: ASSESSMENT:?pt did well with gait training and stair training with pt reporting pain staying manageable during the duration of session. pt reports she was able to perform her HEP once this afternoon. PLAN: Continue with balance training, global strengthening and general conditioning for improved safety, mobility and activity tolerance until pt is ready for DC. TREATMENT CODE/TIME: [id number], [id number] 25mins (8:15-8:40am) [id number] 15mins (1:25-1:40pm)
[2024-10-10] MEDS: oxyCODONE 10 MG TAB PO (10:56)
[2024-10-10 11:13] VITALS: BP 123/69; PULSE 63; RESP 18; TEMP 36.4; O2SAT 93
--- NOTE | 2024-10-10 11:15 | W.NUTRFU ---
Date of service: 10/10/24 Time of Service: 11:16 Nutrition Note NOTE: PT lying in bed on visit. States no special nutrition needs. Tolerating regular diet with fair intake. Wt hx shows slight recent weight gain. Normal BMI at present. Potassium 3.4 today, BUN at 4. CRP was >22 10/06 and total protein and albumin labs low today. For wound support - would recommend vitamin C 500mg BID, 2000IU vitamin D3 or more pending lab as it has been low in the past. would also suggest 220mg zinc sulfate and liquid protein concerntrate ordered TID. Will send protein supplements for patient to try. Will monitor intake, weight, nutrition related labs. Time Spent in Nutritional Counseling and Treatment: 10 min
--- NOTE | 2024-10-10 12:30 | DSE_ITS ---
Date of service: 10/10/24 Time of Service: 12:31 DS: Diagnosis Discharge Diagnosis (1) Pyoderma gangrenosum: Status: Acute Discharge Plan Disposition Patient Disposition: Home W/Home Health Services Condition: Improving Discharge Details Reason For Visit: Sepsis, infected skin lesions Admit Date/Time: 10/04/24 14:29 Admit Provider: Ron Beyer Attending Provider: Ron Beyer Primary Care Provider: Unknown,Unknown Hospital Course Hospital Course: Martina Kuhn is a 69 year old woman presenting October 04 with worsening pain in her left lower extremity, found to be septic with multiple open lesions on both legs, with history of MRSA and GAS infections, and DVT/PE now on apixaban. ED workup included UDS positive for cocaine, THC and opiates; US LLE negative for DVT; CT chest unremarkable. She was admitted for sepsis with presumed source in her skin infections. She has had CTA aorta with runoff which did not show significant peripheral vascular disease. She has had a bone scan which did not indicate osteomyelitis. Echocardiogram was unremarkable without significant valvular disease. She had hypotension concerning for worsening of her sepsis and was moved to the ICU on October 05; she did not require pressors and was returned to the floor October 06. She remains hospitalized on vancomycin and pip-tazo, with significant pain requiring narcotics. October 04 blood cultures NGTD. DOAC has been held for October 07 OR debridement and biopsy of her wounds with Dr Argueta. She has so far declined to participate in PT evaluation. 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 There is an operative note from 10/07/24 with a preoperative diagnosis of bilateral lower extremity wounds postop diagnosis the same procedure excisional debridement and wound biopsy. While the patient was here she was treated with vancomycin and Zosyn with good effect. In terms of diagnostic studies a white count on admission excuse me on discharge was 6.65. She did have mild anemia no need to be worked up in the outpatient setting. Patient also had mild thrombocytosis with a platelet count of 437 once again was worked up in the outpatient setting. Patient was noted to have mild hypokalemia with potassium of 3.4 and this will be replaced. In terms of microbiology her wound culture did show strep pyogenes but just rare. In terms of imaging an echocardiogram was done which showed an EF of 55% essentially benign echo. Bone scan was done on as well which showed increased soft tissue activity consistent with c ellulitis but no osteomyelitis. She also had a CT angiogram done which did not show any aneurysms or dissection. She had mild atherosclerotic disease in the abdominal and iliac arteries. No stenosis or occlusion was noted. Patient also had a chest CT done on admission did not show any PE did show some stable lower thoracic and upper lumbar spine compression deformities. Lower extremity ultras ound was negative for DVT. On the , I did discuss with general surgery Dr. Kc who recommends discharge. Patient was anxious to be discharged and will be going home. Patient did complete her course of antibiotics and the only medication I will add is pain control. Patient will be follow-up with her PCP as well as general surgery in the outpatient setting. I will also send her home with some potassium supplementation. Reviewed old dictations from prior CTs of her chest she does have a 2 cm pulmonary nodule that appears to be stable. And a CT performed on 10/23/2020 there was mention of a spiculated right lung mass. Recommendation at that time was to do a PET/CT scan. Will defer to the outpatient setting as I do not know if this has been performed or not. In our records we do not have a copy of the PET scan. Recommendations for Follow Up Recommended tests to be ordered by follow up provider: cmp in 2 weeks PET-CT scan of right pulmonary mass Home Meds and New Rx's Prescriptions: New oxycodone 10 mg Tablet 10 mg PO Q6H PRN PRNQty: 14 0RF potassium chloride [Klor-Con M20] 20 mEq tablet,ER particles/crystals 20 meq PO DAILY Qty: 10 0RF Continued Eliquis 5 mg tablet 5 mg PO BID Patient Comments: TAKE ONE TABLET BY MOUTH TWICE A DAY escitalopram oxalate [Lexapro] 20 mg Tablet 20 mg PO DAILY levothyroxine 100 mcg tablet 100 mcg PO DAILY Patient Comments: TAKE 1 TABLET BY MOUTH DAILY Discharge Instructions Stand Alone Forms: Nursing Discharge Form Referrals: Bethanie Foss [NURSE PRACTITIONER, Medicine] Referral Note: follow up in 5-7 days Cate Argueta MD [ [facility] STAFF PHYSICIAN, Surgery] Referral Note: follow up in 1-2 weeks Activity:: Activity as Tolerated Equipment/Supplies:: No Equipment Needed Diet:: As Tolerated Discharge Orders Discharge Orders: Discharge Order (Routine); Ordered 10/10/24 Ordered By: Owen Huitron DS: Summary Time Spent with Patient providing and/or coordinating discharge services: Greater than 30 minutes Status at Discharge Functional status at discharge: uses cane/walker Overall status at discharge: patient is progressing back to baseline Mental Status: mental status grossly normal Speech and Movement: speech and movement normal Mood: congruent mood Affect: normal affect Quality:SDOH Health Related Social Needs: Health related social needs risk of homeless transpo i nsecurity house/econ circumstance Health related social needs details none Health related social needs details: none Exam Narrative Exam Narrative: heent-ncat mmm neck- no lad no jvd cv-rrr no mrg lungs-ctab no amu abd-sntndbsa ext-bandaged bilat. 1plus MOHINDER bilat, dp/pt intact, decreasing erythema Psych Mental Status: mental status grossly normal Speech and Movement: speech and movement normal Mood: congruent mood Affect: normal affect DS: Data Vitals/I&O Vitals and I&O: Vital Signs Temperature 36.4 C L 10/10/24 11:13 Temperature Source Skin 10/10/24 11:13 Pulse 63 10/10/24 11:13 Pulse 67 10/07/24 15:25 Respiratory Rate 18 10/10/24 11:13 Respiratory Effort Normal 10/07/24 16:00 Respiratory Depth Normal 10/07/24 16:00 Respiratory Pattern Tachypnea 10/05/24 20:00 Blood Pressure 123/69 10/10/24 11:13 Blood Pressure Mean 87 10/10/24 11:13 Blood Pressure Position Supine 10/04/24 12:38 Pulse Oximetry 93 10/10/24 11:13 Respiratory End-tidal CO2 34 10/07/24 15:25 Oxygen Delivery Method Room Air 10/10/24 11:13 Oxygen Flow Rate 0 10/10/24 11:13 Pain Level 7 10/10/24 10:56 Comment RN notified 10/05/24 17:36 Comment room air 10/07/24 08:12 Intake & Output 10/09/24 10/10/24 10/10/24 23:59 11:59 23:59 Intake Total 1650 / 2950 90.625 / 90.625 Output Total 200 / 200 600 / 600 Balance 1450 / 2750 -509.375 / -509.375 Intake: IV 1650 / 2950 90.625 / 90.625 Output: Urine 200 / 200 600 / 600 Other: Urine Color Pale Yellow Urine Appearance Clear Clear Urine Odor Normal Comment Mixed with liquid stool Stool Size Moderate Small Stool Characteristics Liquid Liquid Black Data Completed and Pending Labs on day of discharge: Labs from last 24 hours 10/10/24 05:36 WBC 6.65 RBC 3.40 L Hgb 10.6 L Hct 32.4 L MCV 95 MCH 31.2 MCHC 32.7 RDW 14.3 Plt Count 437 H MPV 9.4 Immature Gran % 1.1 Neutrophils % 72.5 Lymphocytes % 16.4 Monocytes % 7.2 Eosinophils % 2.0 Basophils % 0.8 Nucleated RBC % 0.0 Absolute Neutrophils 4.83 Absolute Lymphocytes 1.09 L Absolute Monocytes 0.48 Absolute Eosinophils 0.13 Absolute Basophils 0.05 Sodium 143 Potassium 3.4 L Chloride 108 H Carbon Dioxide 25.4 Anion Gap 9.6 BUN 4 L Creatinine 0.6 Est GFR (CKD-EPI 2020) 98.32 Glucose 94 Calcium 8.7 Total Bilirubin 0.2 AST 13 L ALT 13 L Alkaline Phosphatase 51 Total Protein 6.1 L Albumin 2.1 L PFSH All Active Problems Pyoderma gangrenosum (Acute) Thoracic compression fracture (Acute) On deep vein thrombosis (DVT) prophylaxis (Acute) Open wounds involving multiple regions of upper and lower extremities (Acute) Skin infection (Acute) Wound of lower extremity (Acute) Vaginal atrophy (Acute) Exposure to trichomonas (Acute) Prescription for metronidazole sent to the pharmacy 06/25/2023. Traumatic vaginal laceration (Acute) Repaired in the OR Anticoagulant long-term use (Acute) Postcoital bleeding (Acute) Pulmonary embolism with infarction (Acute) Tubular adenoma (Acute) repeat CE in 3 yrs time Chronic GERD (Acute) Pancreatitis (Chronic) Discharge planning issues (Acute) Ambulatory dysfunction (Acute) Bilateral pulmonary embolism (Acute) Pain and swelling of left upper extremity (Acute) Lung mass (Acute) Pleuritic chest pain (Acute) Abnormal mammogram (Acute) benign tissue Shortness of breath (Acute) Polycythemia (Acute) Chest pain (Acute) Urinary urgency (Acute) Breast lump (Acute) Cannabis use disorder, mild, abuse (Acute) Suicidal ideation (Acute) PTSD (post-traumatic stress disorder) (Acute) Hypokalemia (Acute) Abnormal EKG (Acute) History of pulmonary embolus (PE) (Chronic) DVT prophylaxis (Acute) Discharge planning issues (Acute) Hypomagnesemia (Acute) Peripheral neuropathy (Acute) Chronic pulmonary embolism (Chronic) Pulmonary infarct (Acute) LUQ abdominal pain (Acute) Osteoporosis (Chronic) Lumbar vertebral fracture (Acute) Thoracic vertebral fracture (Acute) Acute hyperkalemia (Acute) VLADIMIR (acute kidney injury) (Acute) AMS (altered mental status) (Acute) Non-ST elevation OK (NSTEMI) (Acute) Rhabdomyolysis (Acute) Pneumonia (Acute) CHF (congestive heart failure) (Chronic) CAD (coronary artery disease) (Chronic) ASCUS with positive high risk HPV (Acute) Ulcerative colitis (Chronic) Pulmonary emboli (Chronic) Depression (Chronic) Anxiety (Chronic) Hypothyroidism (Chronic) Alcohol abuse (Chronic) Medical History Hypokalemia Hx of myocardial infarction pt. states mild OK in april 2020 Surgical History History of esophagogastroduodenoscopy (EGD) (~11/30/20) History of colonoscopy with polypectomy (~11/30/20) Hx of colonoscopy Hx of section Family History Father Heart disease Paternal Grandmother Cancer Maternal Grandmother Cancer Social History Smoking/Tobacco Use Status: Current every day Tobacco Type: cigarettes Years smoked: 46 Tobacco: How many years used: 46 Smoking risk assessment performed?: Yes Alcohol Intake: current Alcohol Intake frequency: holidays/special occasions only Alcohol type: wine Drug use: Daily Substance use type: marijuana Details: states last used marijuana 11.29.20 Housing: apartment Current gender identity: female Do you feel safe at home: Yes Female Reproductive History Menstrual Menopause type: natural Time Spent with Patient Time Spent with Patient: 45-69 minutes Time was spent: preparing to see the patient(eg.review tests), obtaining and/or reviewing separately otained hiistory, ordering medications,tests, procedures, referring, communicating with other health child care counselor, indepentently interpreting results, counseling the patient and care coordination
--- NOTE | 2024-10-10 12:32 | PDOC.HHF2F_ITS ---
Home Health Referral Home Health Orders Clinical synopsis of why skilled professionals are needed: cellulitis and wound care Medical diagnosis necessitation home health referral: cellulitis and wound care Registered Nurse: Check all that apply Assess for exacerbation of medical condition, instruct patient/caregivers on signs and symptoms to report for early detection: Ordered Assess wound for signs and symptoms of infection, instruct on wound care and/or provide skilled wound care consisting of: wound care Physical Therapist: Check all that apply Increase strength & endurance for safe mobility at home: Ordered To design/establish home maintenance program: Ordered Fall reduction therapy program for patient with history of frequent falls: Ordered Home safety evaluation and teaching/gait training including stair management (if applicable): Ordered Occupational Therapist: Evaluate and treat for patient unable to perform ADL/IADL/self-care: Ordered Upper extremity strengthening, range and motion: Ordered Insole And Heel Stiffener: Assist with community resources: Ordered Assist with ocean transportation intermediary care planning: Ordered Home Bound Status Use of Special Transportation (Describe transportation and medical necessity): rct Encounter Date and Reason: I certify that a FTF encounter for this patient was performed on October 10, 2024 and that such encounter was related to the primary reason the patient requires home health services. The encounter was conducted in the following manner: * By me as the certifying physician, COMMUN[employer] CENTRE MANAGER, PA or * By an inpatient physician, COMMUNITY [employer] CENTRE MANAGER or PA during an inpatient stay who communicated findings to me, Certification And Authentication I certify that I composed the above information based on my clinical judgment relating to this patient's medical condition and, if applicable, clinical findings communicated to me by the NPP or inpatient physician who performed the FTF encounter. Name of Provider that will be monitoring home health services: Owen Huitron
--- NOTE | 2024-10-10 15:11 | PDOC.CMDIS ---
Date of service: 10/10/24 Time of Service: 15:12 LACE Index Scoring Tool Questions: Length of Stay (in days): 4 - 6 Was the patient admitted via the E.D.?: Yes Comorbidities: Previous M.I. and Congestive Heart Failure E.D. Visits: 1 Answers: Total Score: 11 Risk of Readmission: High Risk Care Management Discharge Plan Reason for Hospitalization: sepsis, infected skin lesions Discharge Plan: Martina was discharged home earlier today with new services of HC RN, PT/OT, and PROSTHETIC LAB TECHNICIAN. She will f/u with her PCP and continue per her plan of care. Martina was transported home via [facility]. Patient/Family Education Needs: Review of discharge instructions, activity, limitations, wound care, and discuss Ask me 3. Services Needed at Discharge: Home Health Care Services ([facility] RN, PT, OT, PROSTHETIC LAB TECHNICIAN) SDOH Health Related Social Needs: Health related social needs risk of homeless transpo insecurity house/econ circumstance Health related social needs details none Health related social needs details: none
== END 2024-10-10 13:49 | disposition home health service (06) | DRG 854 ==
LOC: ER 14:35 → MS 15:22 → ICU 10-06 09:18 → MS 10-07 16:01
PROVIDERS: Nurse Practitioner Family; Surgery; Admitting Provider Family Medicine; Emergency Provider Emergency Medicine; Responsible Provider Hospitalist; Visit Provider Family Medicine
PROC: 0JBP0ZZ Excision of Left Lower Leg Subcutaneous Tissue and Fascia, Open Approach (ICD-10-PCS; CPT 11106; principal; 2024-10-07 14:00)
DX: A41.9 Sepsis, unspecified organism (principal); K51.90 Ulcerative colitis, unspecified, without complications; L88 Pyoderma gangrenosum; K86.1 Other chronic pancreatitis; L97.822 Non-pressure chronic ulcer of other part of left lower leg with fat layer exposed; L97.812 Non-pressure chronic ulcer of other part of right lower leg with fat layer exposed; M48.54XA Collapsed vertebra, not elsewhere classified, thoracic region, initial encounter for fracture; F41.9 Anxiety disorder, unspecified; E03.9 Hypothyroidism, unspecified; F12.10 Cannabis abuse, uncomplicated; F32.A Depression, unspecified; F10.10 Alcohol abuse, uncomplicated; I50.9 Heart failure, unspecified; I25.10 Atherosclerotic heart disease of native coronary artery without angina pectoris; E83.42 Hypomagnesemia; E87.6 Hypokalemia; R91.8 Other nonspecific abnormal finding of lung field; B95.0 Streptococcus, group A, as the cause of diseases classified elsewhere; L98.491 Non-pressure chronic ulcer of skin of other sites limited to breakdown of skin; K21.9 Gastro-esophageal reflux disease without esophagitis; D75.1 Secondary polycythemia; F43.10 Post-traumatic stress disorder, unspecified; F17.210 Nicotine dependence, cigarettes, uncomplicated; I25.2 Old myocardial infarction; Z86.718 Personal history of other venous thrombosis and embolism; Z79.01 Long term (current) use of anticoagulants; Z79.899 Other long term (current) drug therapy; I70.0 Atherosclerosis of aorta; I70.203 Unspecified atherosclerosis of native arteries of extremities, bilateral legs; R06.02 Shortness of breath; R59.0 Localized enlarged lymph nodes; I95.9 Hypotension, unspecified; Z86.14 Personal history of Methicillin resistant Staphylococcus aureus infection; G62.9 Polyneuropathy, unspecified; D64.9 Anemia, unspecified; D75.839 Thrombocytosis, unspecified
CPT/HCPCS: 11106; 11042; 11045; 00123; 36415; 71275; 75635; 80048; 80053; 80307; 84145; 87040; 87077; 93306; 96365; 96367; 96375; 96376; 97110; 97162; 97530; 99222; 99231; 99232; 99285; J1650; 78315; 80202; 81003; 81015; 82565; 83605; 83735; 84484; 85025; 85610; 86140; 87070; 87205; 88305; 93971; 99233; 99239; J0696; J0780; J1171; J1885; J2004; J2250; J2371; J2405; J2543; J2704; J3010; J3373; J3475; J3490; Q9967